=== PATIENT | female | born 1940 | race Caucasian/White ===

== ENCOUNTER → 2017-09-20 09:13 | Outpatient (CLI) | payer MEDICARE, SELFPAY ==
--- NOTE | 2017-09-20 09:16 | HPBI_ITS ---
MAMMOGRAPHY - BILATERAL SCREENING REASON FOR EXAM: Female, 76 years old. Routine annual screening examination. PERTINENT HISTORY: Non-contributory. TECHNIQUE: Digital bilateral breast chilango (3D mammographic acquisition) in the CC and MLO projections. 2-D mediolateral oblique (MLO) and craniocaudad (CC) views of both breasts were obtained. CAD: Full Field Digital Mammography with Computer Added Detection was performed. COMPARISON: Comparison is made with prior study dated September 19, 2016 and September 17, 2015. FINDINGS: Breast Composition: There are scattered areas of fibroglandular density. There are no dominant masses or suspicious calcifications. No other significant abnormalities are identified. There has been no significant change since the prior study. HPBI/SCREENING MAMM (CAD), BILAT IMPRESSION: Stable bilateral screening mammogram. Yearly follow-up mammogram recommended. (A) ASSESSMENT CATEGORY: BIRADS Category 1: Negative. A letter regarding these results will be sent to the patient by the facility within 30 days. Approximately 10% of breast cancers are not detected by mammography. A normal mammogram should not delay biopsy of a clinically suspicious abnormality. [id number] Electronically Signed: Constantino Sparks MD at 11:06 EST Tel [phone], Service support ,
== END ==
PROVIDERS: Family Provider Internal Medicine; PCP Internal Medicine; Visit Provider Internal Medicine
DX: Z12.31 Encounter for screening mammogram for malignant neoplasm of breast (principal)
CPT/HCPCS: 77063; 77067

== ENCOUNTER → 2017-09-27 09:55 | Outpatient (CLI) | payer MEDICARE, SELFPAY ==
--- NOTE | 2017-09-27 13:36 | PFT ---
INTRODUCTION: The patient is a 76-year-old female currently under the care of Dr. pa the presents for pulmonary function testing secondary to a diagnosis of hyperinflation. Respiratory therapy reports good patient effort and reports no other concerns. Bronchodilators were used during testing. INTERPRETATION: Forced expiration spirometry demonstrates no evidence of a large airways obstructive ventilatory defect. There was no significant response to aerosolized bronchodilators, based upon strict ATS criteria. Spirogram is of good quality and plateau gradually indicating slow emptying of the lungs. The respiratory flow volume loop reveals decreased expiratory flow rates primarily at high lung volumes which can be seen in small airways obstruction. Body plethysmography was performed and reveals lung volumes to be within normal limits. Diffusing capacity by single breath CO is within normal limits. IMPRESSION: These pulmonary function studies are essentially within normal limits. There are subtle findings of potential small airways obstruction. If there is clinical concern for underlying asthma, a methacholine challenge can be ordered.
== END ==
PROVIDERS: Family Provider Internal Medicine; PCP Internal Medicine; Visit Provider Internal Medicine
DX: R09.89 Other specified symptoms and signs involving the circulatory and respiratory systems (principal)
CPT/HCPCS: 94060; 94726; 94729

== ENCOUNTER 2017-12-31 13:47 | Observation (INO) | payer MEDICARE, SELFPAY ==
--- NOTE | 2017-12-31 15:05 | CT_ITS ---
STUDY: CT BRAIN WITHOUT CONTRAST REASON FOR EXAM: Female, 77 years old. Confusion RADIATION DOSAGE (If Supplied By Facility): CTDIvol = ( 60.81 ) mGy, DLP = ( 998.67 ) mGycm TECHNIQUE: Transaxial CT imaging of the brain was performed without administration of intravenous contrast material. Individualized dose optimization techniques were used for this CT. COMPARISON: None. FINDINGS: There is no acute bleed or infarct. There are normal white matter tracts. The ventricles are normal in configuration. There is no hydrocephalus. The visualized paranasal sinuses are clear. The mastoid air cells are well aerated. There is no skull fracture. CT/Brain/Head without Contrast IMPRESSION: No acute intracranial abnormality. Electronically Signed: Harshil Guerin, at 17:17 EDT Tel , Service support ,
--- NOTE | 2017-12-31 15:08 | RAD_ITS ---
STUDY: X-RAY CHEST REASON FOR EXAM: Female, 77 years old. Acute chest pain TECHNIQUE: Single AP portable view of the chest. COMPARISON: None. FINDINGS: EKG leads overlie the chest There are interstitial fibrotic changes of the lungs. There is no demonstrated pleural abnormality. Normal size heart. Normal mediastinum and johnna. Normal visualized pulmonary arteries. Normal visualized aortic arch and descending thoracic aorta. There are diffuse degenerative changes of the visualized thoracic spine. Normal visualized ribs, clavicles, and shoulders. There is no demonstrated abnormality of the visualized soft tissue structures of the upper abdomen. RAD/Chest 1 View (Portable) IMPRESSION: Degenerative changes, as described above. No demonstrated acute cardiopulmonary process. Electronically Signed: Renaldo Gotti MD at 14:37 EDT , Service support ,
--- NOTE | 2017-12-31 19:26 | DT_ITS ---
This patient was seen during an EMR downtime December 31, 2017 - January 07, 2018. This patient may have a combination of paper and electronic documentation or all paper documentation. All documentation is viewable within the e-chart portion of [facility] for each patient visit.
--- NOTE | 2018-01-01 11:52 | ECHOD_ITS ---
Reason For Study: CVA Procedure This was a 2D Doppler, Color Flow transthoracic echocardiogram. Exam performed portable in patient room. Left Ventricle Normal LV size. Left ventricular systolic function is normal. The estimated ejection fraction is 60 %. Normal diastology for age. No regional wall motion abnormalities noted. Right Ventricle Normal RV size. Normal systolic function. Atria Normal left atrium. Normal right atrium. No doppler evidence for ASD. Mitral Valve There is no mitral annular calcification. Mild diffuse mitral valve thickening. Mild mitral valve prolapse, posterior leaflet. Mild (1+) mitral valve insufficiency. Tricuspid Valve Normal tricuspid valve. Trivial tricuspid valve insufficiency. Right ventricular systolic pressure estimated to be 30 mmHg. Aortic Valve Trisinus/trileaflet aortic valve. Moderate focal aortic valve calcification. Pulmonic Valve The pulmonic valve is not well visualized. Great Vessels Normal sized aortic root. Pericardium/Pleural No pericardial effusion. Medication Performed a rapid injection of agitated mix of 9 cc saline and 1cc air to assess for atrial septal defect. MMode/2D Measurements & Calculations LVIDd: 3.8 cm IVSd: 1.0 cm Ao root diam: 3.0 cm LVIDs: 2.5 cm LVPWd: 1.0 cm LA dimension: 2.9 cm RVDd: 3.1 cm FS: 34.2 % LAV(MOD-bp): 20.1 ml LA A4 area: 10.8 cm2 RA A4 area: 10.3 cm2 LAV(MOD-bp) Indexed: 11.8 ml/m2 LAV(MOD-sp2): 15.6 ml LAV(MOD-sp4): 23.0 ml Doppler Measurements & Calculations MV E max kin: 54.2 cm/sec Lat Peak E' Kin: 8.4 cm/sec Med Peak E' Kin: 7.3 cm/sec MV A max kin: 65.7 cm/sec E/E' lat: 6.5 E/E' med: 7.4 MV E/A: 0.82 Ao V2 max: 111.5 cm/sec LV V1 max: 73.5 cm/sec PA V2 max: 62.9 cm/sec Ao max P.0 mmHg LV V1 max P.2 mmHg TR max kin: 259.0 cm/sec TR max P.0 mmHg Interpretation Summary Left ventricular systolic function is normal. The estimated ejection fraction is 60 %. Mild mitral valve prolapse, posterior leaflet Mild diffuse mitral valve thickening. Mild (1+) mitral valve insufficiency. Trivial tricuspid valve insufficiency. Moderate focal aortic valve calcification. Right ventricular systolic pressure estimated to be 30 mmHg. Normal diastology for age. Comment / Disclaimer: The offiial transthoracic echocardiogram report was delayed secondary to [facility] Information Systems technical issues. A hand writtern preliminary report was previously made available for review. Ordering Physician: Nikita Suarez Referring Physician: Ben Paulino Performed By: Thalia Vargas RDCS, RVT
--- NOTE | 2018-01-01 12:30 | MRI_ITS ---
STUDY: MRA NECK WITHOUT CONTRAST REASON FOR EXAM: Female, 77 years old. Confusion. TECHNIQUE: Source images were obtained, MIPs were performed. The study was performed unenhanced. COMPARISON: None. FINDINGS: RIGHT CAROTID ARTERIES: Normal right common carotid artery (CCA). Normal right common carotid bulb. Normal origin of the right internal carotid (ICA) artery without a hemodynamically significant stenosis. Normal visualized cervical portion of the right internal carotid artery. Normal origin of the right external carotid artery (ECA). LEFT CAROTID ARTERIES: Normal left common carotid artery (CCA). Normal left common carotid bulb. Normal origin of the left internal carotid (ICA) artery without a hemodynamically significant stenosis. Normal visualized cervical portion of the left internal carotid artery. Normal origin of the left external carotid artery (ECA). VERTEBRAL ARTERIES: Normal antegrade flow within the bilateral vertebral artery without a hemodynamically significant stenosis. The vertebral arteries are codominant. MRI/MRA Neck without Contrast IMPRESSION: Normal MRA of the bilateral cervical carotid and vertebral arteries. Electronically Signed: Mustapha Wiseman MD at 11:25 EDT , Service support ,
--- NOTE | 2018-01-01 12:30 | MRI_ITS ---
STUDY: MRI BRAIN WITHOUT CONTRAST REASON FOR EXAM: Female, 77 years old. Confusion. TECHNIQUE: Standardized multiplanar fat and water weighted pulse sequences were obtained. COMPARISON: CT head without contrast 12/31/2017. FINDINGS: No restricted diffusion to suspect acute or subacute ischemic infarct. No focal signal abnormalities throughout the brain parenchyma. The tolliver matter, white matter, ventricles and cisterns are normal. Normal size of the ventricles and extra-axial spaces for the patient's age. Normal white matter tracts of the supratentorial brain. Normal bilateral basal ganglia. Normal thalami. There is no extra-axial fluid accumulation. Normal flow voids within the major intracranial circulation suggesting patency by spin echo criteria. Normal sella turcica, pituitary gland, infundibular stalk, optic chiasm and hypothalamus. Normal tectal plate and pineal gland. Normal midbrain, lorenzo and medulla. Normal cerebellum. Normal basal cisterns. Normal bilateral temporal bones. Normal bilateral internal auditory canals. No demonstrated orbital abnormality, within the constraints of a routine brain study. Normal visualized paranasal sinuses. Normal calvarium and skull base. Normal visualized soft tissue structures. Normal visualized upper cervical spine. MRI/Brain without Contrast IMPRESSION: Normal unenhanced MRI of the brain. Electronically Signed: Mustapha Wiseman MD at 12:01 EDT , Service support ,
--- NOTE | 2018-01-01 12:30 | MRI_ITS ---
STUDY: MRA OF THE HEAD WITHOUT CONTRAST REASON FOR EXAM: Female, 77 years old. Confusion. TECHNIQUE: 3-D qpyp-ex-lldoen (TOF) imaging was performed with MIPs. The study was performed unenhanced. COMPARISON: None. FINDINGS: Normal bilateral petrous carotid arteries. Normal right cavernous carotid artery with a normal supraclinoid bifurcation. Normal left cavernous carotid artery with a normal supraclinoid bifurcation. Normal right A1 segment of the anterior cerebral artery. Normal left A1 segment of the anterior cerebral artery. Normal intact anterior communicating artery (ACOM). Normal bilateral A2 segments of the anterior cerebral arteries. Normal right M1 and M2 segments of the middle cerebral arteries, with a normal M1 bifurcation. Normal left M1 and M2 segments of the middle cerebral arteries, with a normal M1 bifurcation. origin of the right [employer]ION TE[employer]ER off the right internal carotid artery rather than a widely patent right posterior communicating artery (PCOM). Normal left posterior communicating artery (PCOM). Normal bilateral vertebral arteries. Normal basilar artery with a normal basilar bifurcation. The visualized bilateral superior cerebellar (SCA) arteries are normal. Absent right P1 segment. Widely patent left P1, bilateral P2 and visualized P3 segments of the posterior cerebral arteries. There is no demonstrated aneurysm of the [place]. There is no major vessel occlusion or hemodynamically significant stenosis. MRI/MRA Head ONLY without Contrast IMPRESSION: Normal MRA of the head Electronically Signed: Mustapha Wiseman MD at 11:36 EDT , Service support ,
[2018-01-03 10:57] LABS: BUN 18 mg/dL (7-18); BUN/Creat Ratio 17.1 RATIO (10-20); Calcium,Total 8.8 mg/dL (8.5-10.1); Creatinine, Serum 1.05 mg/dL (0.55-1.02); EST Glomerular Filtration Rate 54 mL/min (>60); Est Glom Filt Rate - Afr Amer 65 mL/min (>60); Glucose 118 mg/dL (74-106); Potassium 3.8 mmol/L (3.5-5.1); Sodium Level 143 mmol/L (136-145)
[2018-01-03 10:58] LABS: Anion Gap 6 (5-15); Chloride 111 mmol/L (98-107)
[2018-01-03 18:02] LABS: Bacteria 0 SEEN /hpf (None Seen); Mucous, Urine 0 SEEN /hpf (<or=2+); Red Blood Cells-Urine 0 SEEN /hpf (0-5); White Blood Cells 0 SEEN /hpf (0-5)
[2018-01-03 18:19] LABS: Color, Urine Yellow (Yellow); Glucose, Dipstick NEGATIVE (Normal); Ketone-Dipstick Negative (Negative); Leukocyte Esterase-Dipstick Negative /ul (Negative); Nitrite-Dipstick Negative (Negative); Occult Blood-Urine 10 /ul (Negative); Protein-Dipstick Negative (Negative); Squamous Epithelial Cells - UA 0-5 SEEN /hpf (5-10); Urine Bilirubin Dipstick Negative (Negative); Urine Clarity Clear (Clear); Urine Urobilinogen Normal (Normal)
[2018-01-04 10:22] LABS: Absolute Lymphocyte Count 1.35 X10^3/ul (0.83-4.51); Absolute Neutrophil Count 3.7 X10^3/uL (2.0-7.7); Basophil# 0.02 X10^3/uL; Basophil% 0.4 % (0-1); Eosinophil# 0.09 X10^3/uL; Eosinophils% 1.7 % (0-5); Hematocrit 46.5 % (37-47); Hemoglobin 14.9 g/dl (12.0-15.0); Lymphocyte # 1.35 X10^3/ul (4.0); Lymphocyte % 24.8 % (19-41); Mean Corpuscular Hgb 29.9 pg (27.0-32.0); Mean Corpuscular Volume 93.4 fL (81-99); Mean Platelet Vol. 10.6 fl (6.2-12.0); Monocyte# 0.31 X10^3/uL; Monocyte% 5.7 % (0-10); Neutrophil # 3.68 X10^3/uL (2.7-7.7); Neutrophil % 67.4 % (47-70); POSITIVE COUNT NO; POSITIVE DIFFERENTIAL NO; POSITIVE MORPHOLOGY NO; Platelet Count 172 K/mm3 (150-450); RBC Distribution Width CV 12.8 % (11.6-14.6); RBC Distribution Width SD 42.9 fl (35.1-43.9); Red Blood Count 4.98 M/mm3 (4.2-5.4); White Blood Count 5.5 K/mm3 (4.4-11.0)
[2018-01-04 11:51] LABS: Hematocrit 45.2 % (37-47); Hemoglobin 14.3 g/dl (12.0-15.0); Mean Corp Hgb Conc 31.6 g/gl (32-36); Mean Corpuscular Hgb 29.4 pg (27.0-32.0); Mean Corpuscular Volume 92.8 fL (81-99); Red Blood Count 4.87 M/mm3 (4.2-5.4); White Blood Count 4.1 K/mm3 (4.4-11.0)
[2018-01-04 11:52] LABS: Mean Platelet Vol. 9.9 fl (6.2-12.0); Platelet Count 176 K/mm3 (150-450); RBC Distribution Width CV 12.5 % (11.6-14.6); RBC Distribution Width SD 41.9 fl (35.1-43.9); Scan Indicated on CBC? Y/N NO
[2018-01-05 11:18] LABS: BUN 14 mg/dL (7-18); BUN/Creat Ratio 19.2 RATIO (10-20); Calcium,Total 8.4 mg/dL (8.5-10.1); Cholesterol 176 mg/dL (200); Creatinine, Serum 0.73 mg/dL (0.55-1.02); EST Glomerular Filtration Rate 82 mL/min (>60); Est Glom Filt Rate - Afr Amer 99 mL/min (>60); Glucose 80 mg/dL (74-106); Triglycerides 60 mg/dL; Very Low Density Lipoprotein 12 mg/dL (5-40)
[2018-01-05 11:19] LABS: Anion Gap 6 (5-15); Chloride 112 mmol/L (98-107); High Density Lipoprotein 51 mg/dL; Potassium 3.6 mmol/L (3.5-5.1); Sodium Level 143 mmol/L (136-145)
--- NOTE | 2018-01-08 09:44 | PCM.DC.SUM ---
Discharge Date and Diagnosis Date of Admission: 12/31/17 Date of Discharge: 01/01/18 - Primary Discharge Diagnosis #1 transient global amnesia #2 chronic migraine cephalgia #3 hyperlipidemia #4 GERD Hospital Course and Treatment Operations: None Procedures: None Summary of Care Provided: The patient is a 77 year old F who was seen in the emergency room [facility] with a chief complaint of confusion which started the morning of 12/31/17, patient's family noted that when I talk with her on the phone that she did not seem right. Evaluation in the emergency room included a CT of the brain which did not show any abnormalities, patient's labs were unremarkable. Patient appeared alert but was mildly confused. Patient was placed in observation status on PCU, she was seen in consultation by neurology and had additional imaging studies which were unremarkable for any acute process. It was felt that the patient had transient global amnesia. On 01/01/18, patient was seen and examined felt to be in stable condition for discharge home Home Medications: Medications to take at Discharge Aspirin [Aspirin, Baby] 81 mg PO DAILY@0800 01/17/16 Calcium Citrate/Vitamin D3 [Calcium Citrate +Vit D3 Tablet] 1 each PO 01/17/16 Cholecalciferol (Vitamin D3) [Vitamin D] 10,000 unit PO 01/17/16 Estrogens, Conjugated [Premarin] 1 dose VAGINAL DAILY 01/17/16 Famotidine [Pepcid] 20 mg PO DAILY 01/17/16 Hyoscyamine Sulfate 0.125 mg SL 01/17/16 L.acidoph,Paracasei, B.lactis [Probiotic] 1 each PO 01/17/16 [place]-3 Fatty Acids/Fish Oil [[place] 3 Fish Oil Softgel] 1 each PO 01/17/16 Pravastatin [Pravachol] 10 mg PO QHS 01/17/16 Sumatriptan Succinate 25 mg PO 01/17/16 Topiramate [Topamax] 25 mg DAILY 01/17/16 Vitamin E 400 unit PO 01/17/16 Primary Care Physician: Apanra William DO [Primary Care Provider] - Disposition: Home Minutes spent on discharge:: 25 Patient Condition:: Stable Medical Necessity - Tobacco Use Smoking Status: Never smoker Meaningful Use Info Meaningful Use Diagnoses (Choose all that apply): None applicable Code Visit OBSV E&M: 23315 Observation care discharge
--- NOTE | 2018-01-08 09:47 | DS.PCM_ITS ---
Discharge Date and Diagnosis Date of Admission: 12/31/17 Date of Discharge: 01/01/18 - Primary Discharge Diagnosis #1 transient global amnesia #2 chronic migraine cephalgia #3 hyperlipidemia #4 GERD Hospital Course and Treatment Operations: None Procedures: None Summary of Care Provided: The patient is a 77 year old F who was seen in the emergency room [facility] with a chief complaint of confusion which started the morning of 12/31/17, patient's family noted that when I talk with her on the phone that she did not seem right. Evaluation in the emergency room included a CT of the brain which did not show any abnormalities, patient's labs were unremarkable. Patient appeared alert but was mildly confused. Patient was placed in observation status on PCU, she was seen in consultation by neurology and had additional imaging studies which were unremarkable for any acute process. It was felt that the patient had transient global amnesia. On 01/01/18 , patient was seen and examined felt to be in stable condition for discharge home Home Medications: Medications to take at Discharge Aspirin [Aspirin, Baby] 81 mg PO DAILY@0800 01/17/16 Calcium Citrate/Vitamin D3 [Calcium Citrate +Vit D3 Tablet] 1 each PO 01/17/16 Cholecalciferol (Vitamin D3) [Vitamin D] 10,000 unit PO 01/17/16 Estrogens, Conjugated [Premarin] 1 dose VAGINAL DAILY 01/17/16 Famotidine [Pepcid] 20 mg PO DAILY 01/17/16 Hyoscyamine Sulfate 0.125 mg SL 01/17/16 L.acidoph,Paracasei, B.lactis [Probiotic] 1 each PO 01/17/16 [place]-3 Fatty Acids/Fish Oil [[place] 3 Fish Oil Softgel] 1 each PO 01/17/16 Pravastatin [Pravachol] 10 mg PO QHS 01/17/16 Sumatriptan Succinate 25 mg PO 01/17/16 Topiramate [Topamax] 25 mg DAILY 01/17/16 Vitamin E 400 unit PO 01/17/16 Primary Care Physician: Aparna William DO [Primary Care Provider] - Disposition: Home Minutes spent on discharge:: 25 Patient Condition:: Stable Medical Necessity - Tobacco Use Smoking Status: Never smoker Meaningful Use Info Meaningful Use Diagnoses (Choose all that apply): None applicable Code Visit OBSV E&M: 59592 Observation care discharge
== END 2018-01-01 18:25 | disposition home or self-care (01) ==
LOC: ED 01-02 14:39 → PCU 01-03 11:25
PROVIDERS: Family Medicine; Admitting Provider Internal Medicine; Emergency Provider Emergency Medicine; Family Provider Internal Medicine; PCP Internal Medicine; Visit Provider Internal Medicine
DX: G45.4 Transient global amnesia (principal); G43.909 Migraine, unspecified, not intractable, without status migrainosus; K21.9 Gastro-esophageal reflux disease without esophagitis; E78.5 Hyperlipidemia, unspecified; I08.1 Rheumatic disorders of both mitral and tricuspid valves
CPT/HCPCS: 36415; 70450; 70544; 70547; 70551; 71045; 80048; 80061; 81001; 84484; 85025; 85027; 93005; 93306; 96372; 99218; 99285; J7050; A4216; G0378

== ENCOUNTER → 2018-01-18 09:22 | Outpatient (CLI) | payer MEDICARE, SELFPAY ==
--- NOTE | 2018-01-26 10:23 | EEG ---
- Electroencephalogram Date of Service: 01/18/18 History EEG is being done in this 77 yr F to rule out seizures EEG Description: This is an 18 channel EEG with 10-20 lead placement system. Bipolar montages, Referential and Circumferential montages were reviewed. Photic stimulation and Hyperventilation were performed. The posterior dominant background rhythm is 9 HZ synchronous, symmetric, reacting to eye opening and closing. Photo stimulation elicited normal driving response but no abnormal photoparoxysmal response, Hyperventilation did not elicit any abnormal photoparoxysmal response. Sleep was identified. There was no epileptiform discharges or electrographic seizures noted during this recording. EEG Interpretation This is a normal awake and asleep EEG. There is no epileptiform discharges or electrographic seizures noted during the record.
== END ==
PROVIDERS: Family Provider Internal Medicine; PCP Internal Medicine; Visit Provider Internal Medicine
DX: R41.3 Other amnesia (principal)
CPT/HCPCS: 95819

== ENCOUNTER → 2018-05-06 08:39 | Outpatient (CLI) | payer MEDICARE, SELFPAY ==
--- NOTE | 2018-05-06 08:43 | RDU_ITS ---
Reason For Study: HYPERTENSION Right Renal Artery Left Renal Artery Right renal artery ostium Left renal artery ostium 71.2/19.1 108.0/26.4 RSV/EDV. PSV/EDV. Right renal artery proximal Left renal artery proximal PSV/EDV 121.0/32.6 PSV/EDV. 70.6/20.8 . Right renal artery mid 104.0/21.6 Left renal artery mid 66.5/16.2 PSV/EDV. PSV/EDV . Right renal artery distal Left renal artery distal 62.1/17.8 115.0/32.8 PSV/EDV. PSV/EDV. Right RAR 1.3. Left RAR .69. Right Renal Parenchyma Left Renal Parenchyma Upper Pole Medula 38.5/10.4 Left upper pole medulla 20.2/6.1 PSV/EDV. PSV/EDV . Right upper pole medulla EDR .27 . Left upper pole medulla EDR .30 . Right upper pole medulla R.I. .73 . Left upper pole medulla R.I. .70 . Upper [place] Cortx 28.4/9.2 PSV/EDV. UP Cortex 15.9/4.8 PSV/EDV. Right upper pole cortex EDR .32 . Left upper pole cortex EDR .30 . Right upper pole cortex R.I. .68 . Left upper pole cortex R.I. .70 . Right lower Pole medulla 24.4/7.3 Left lower Pole medulla 29.3/9.1 PSV/EDV . PSV/EDV . Right lower pole medulla EDR .30 . Left lower pole medulla EDR .31 . Right lower pole medulla R.I. .70 . Left lower pole medulla R.I. .69 . Lower Pole Cortex 15.7/4.7 PSV/EDV. Lower Pole Cortx 29.6/9.1 PSV/EDV. Right lower pole cortex EDR .30 . Left lower pole cortex EDR .31 . Right lower pole cortex R.I. .70 . Left lower pole cortex R.I. .69 . Right Renal Hilar Left Renal Hilar Right Hilar avg 54.3/11.9 PSV/EDV. LT Hilar avg 42.5/10.7 PSV/EDV . Right hilar acceleration time 51 Left hilar acceleration time 44 m/sec. m/sec. Right Renal Dimensions Left Renal Dimensions Right kidney size 10.3 cm . Left kidney size 10.0 cm . Right cortical dimension 1.5 cm . Left cortical dimension 1.6 cm . Aorta Proximal abdominal aorta 1.5 X 1.5 cm . Distal abdominal aorta 1.3 X 1.3 cm . Proximal abdominal aorta peak systolic velocity is 90.3 cm/sec . Distal abdominal aorta peak systolic velocity is 89.4 cm/sec . Interpretation Summary Dimensions of the intra-abdominal aorta appear normal, without evidence of aneurysmal dilatation. Renal artery velocities are bilaterally normal. Acceleration times are normal bilaterally. Renal- aortic ratios are also bilaterally normal. There is no evidence of hemodynamically significant renal artery stenosis on either side. The right cortical dimension is normal. The left cortical dimension is increased. Kidneys appear normal in size bilaterally. Ordering Physician: Aparna William Referring Physician: Aparna William Performed By: Gwen Childers RVT
== END ==
PROVIDERS: Family Provider Internal Medicine; PCP Internal Medicine; Referring Provider Internal Medicine; Visit Provider Internal Medicine
DX: J84.10 Pulmonary fibrosis, unspecified (principal); I10 Essential (primary) hypertension
CPT/HCPCS: 93975

== ENCOUNTER → 2018-05-24 09:15 | Outpatient (CLI) | payer MEDICARE, SELFPAY ==
[2018-05-30 12:07] LABS: Dopamine, UR 40 ug/L (Undefined); Epinephrine, 24Ur 4 ug/24 hr (0-20); Epinephrine, Ur 2 ug/L (Undefined); Norepinephrine, 24Ur 28 ug/24 hr (0-135); Norepinephrine, Ur 14 ug/L (Undefined); VMA, UR 1.2 mg/L (Undefined)
[2018-05-31 12:43] LABS: Dopamine, 24Ur 80 ug/24 hr (0-510); VMA, 24UR 2.4 mg/24 hr (0.0-7.5)
== END ==
PROVIDERS: Family Provider Internal Medicine; PCP Internal Medicine; Referring Provider Internal Medicine Cardiovascular Disease; Visit Provider Internal Medicine Cardiovascular Disease
DX: I10 Essential (primary) hypertension (principal)
CPT/HCPCS: 81050; 82384; 84585

== ENCOUNTER → 2018-05-30 06:26 | Outpatient (CLI) | payer MEDICARE, SELFPAY ==
--- NOTE | 2018-05-30 10:11 | STRESSREP_ITS ---
Stress Test Report Date: 05/30/2018 Procedure: Exercise tolerance test/imaging study Indications: Chest pain Consent: Per the patient Procedure: The patient exercised on a Ayo protocol for 6 minutes and 30 seconds completing Stage II and 30 seconds of Stage III achieving a peak heart rate of 155 bpm (108 % predicted maximal heart rate) with a peak blood pressure 198/80 mmHg and a peak MET capacity of 7 METs. The baseline ECG demonstrated normal sinus rhythm. The peak exercise ECG demonstrated no obvious ECG changes. There were occasional PVCs during exercise and recovery. The functional capacity was considered average. There was vague chest discomfort at peak exercise with spontaneous resolution in recovery. The examination was discontinued secondary to dyspnea. Impression: 1. Technically adequate (percent predicted maximal heart rate greater than 85%) exercise tolerance test 2. Peak exercise ECG with no obvious ECG changes 3. There were occasional PVCs during exercise and recovery 4. Nuclear images pending Myocardial perfusion imaging study: Technique: The patient was injected with 11.4 mCi of technetium 99m Cardiolite and subsequently rest SPECT Cardiolite nuclear imaging was obtained in the horizontal long, vertical long, and short axis views. The patient exercised on a Ayo protocol for 6 minutes and 30 seconds completing Stage II and 30 seconds of Stage III achieving a peak heart rate of 155 bpm (108 % predicted maximal heart rate) with a peak blood pressure 198/80 mmHg and a peak MET capacity of 7 METs. The patient was injected with 31.9 mCi of technetium 99m Cardiolite and subsequently stress SPECT Cardiolite nuclear imaging was obtained in the horizontal long, vertical long, and short axis views. A gated Cardiolite study at peak stress was obtained. Interpretation: Rest and stress SPECT Cardiolite nuclear imaging status post realignment, normalization, and attenuation correction, demonstrates the appearance of relative uniform tracer uptake and myocardial perfusion appearing within normal limits. There is end systolic thickening and brighteningu. The gated Cardiolite study demonstrates myocardial thickening and inward wall motion. The reported LVEF is 76 %. Impression: 1. Rest and stress SPECT Cardiolite nuclear imaging demonstrate relative uniform tracer uptake and myocardial perfusion appearing within normal limits. 2. The gated Cardiolite study reports an LVEF of 76 %. This note was generated with [email or web address] software. It may contain incorrect words, spelling, and punctuation that were not noted in checking the note before signing.
== END ==
PROVIDERS: Family Provider Internal Medicine; PCP Internal Medicine; Referring Provider Internal Medicine Cardiovascular Disease; Visit Provider Internal Medicine Cardiovascular Disease
DX: R07.9 Chest pain, unspecified (principal); I10 Essential (primary) hypertension; E78.5 Hyperlipidemia, unspecified
CPT/HCPCS: 78452; 93017; A9500; A4216

== ENCOUNTER → 2018-06-25 13:05 | Outpatient (CLI) | payer MEDICARE, SELFPAY ==
--- NOTE | 2018-06-25 13:10 | CT_ITS ---
STUDY: CT CHEST WITHOUT CONTRAST REASON FOR EXAM: Female, 77 years old. Pulmonary fibrosis RADIATION DOSAGE (If Supplied By Facility): CTDIvol = ( 8.24 ) mGy, DLP = ( 276.69 ) mGycm TECHNIQUE: Transaxial imaging was performed without the administration of intravenous contrast material. Individualized dose optimization techniques were used for this CT. COMPARISON: None. FINDINGS: 6 mm left upper lobe nodule on image 66 of series 3. 5 mm left upper lobe nodule on image 68. Mild peripheral pulmonary fibrosis in the upper lobes. Mild terminal alveolar nodularity in the right upper lobe could be related to bronchiolitis. There is no demonstrated pleural abnormality. Normal heart and pericardium. Normal mediastinum. Normal hilar regions. Normal unenhanced pulmonary arteries. Normal aorta arch and descending thoracic aorta. Tracheobronchial calcifications. Normal osseous structures. Indeterminate 12 mm low-density lesion in the central liver. Incompletely imaged left renal cyst. Multiple small nonobstructing left renal calculi. CT/Chest without Contrast IMPRESSION: Mild peripheral pulmonary fibrosis in the upper lobes. Mild terminal alveolar nodularity in the right upper lobe could be related to bronchiolitis. 6 and 5 mm left upper lobe nodules. Based on the 2017 Fleischner Society Guidelines for Management of Incidentally Detected Pulmonary Nodules, for a single solid lung nodule 6-8mm in size: * If patient is considered low risk for developing lung cancer, follow-up CT at 6-12 months is recommended, then consider CT at 18-24 months. * If patient is considered high risk, follow-up CT at 6-12 months is recommended, then again at 18-24 months. Electronically Signed: Prince Calloway MD at 23:46 EST Tel , Service support ,
--- OUTSIDE RECORDS SUMMARY | 2018-08-07 06:46 | XMS RPT_ITS | Continuity of Care Document ---
:1940 Author Organization [facility] Address [address] [place] [address] Phone Care Team Providers Name Role Phone Aparna William DO Unavailable Brendan Koch MD Unavailable Hearing Services-- Ryan Lynch Unavailable Dr. Tone Childs Unavailable Kia Mejia Unavailable Unavailable Rabia Law Unavailable Unavailable Unavailable Unavailable Problems Name Dates Details Amnesia (R41.3, 780.93) Comments: 1 hour spent with patient and daughter today and call to neuro to discuss and reviewed hsosptial notes and his office notes Status: Active Anxiety (F41.9, 300.00) Status: Active Benign essential hypertension (I10, 401.1) Comments: chronic stable-continue present regimen Status: Active Bilateral hearing loss (H91.93, 389.9) Status: Active Blood in stool (K92.1, 578.1) Status: Active Blood pressure elevated without history of HTN (R03.0, 796.2) Comments: dont think she should push mow at this point- she can do low level activity but nothing strenous- I would have her see August- and the issue is abnormal blood pressure response to physical activity c ausing tia x2 - rule out cardiac disease- Status: Active BMI between 19-24,adult (V85.1) Status: Active Bursitis of right hip (M70.71, 726.5) Status: Active 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, 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) Status: Active Cervical radiculopathy (M54.12, 723.4) Status: Active Chest pain, atypical (R07.89, 786.59) Comments: maybe asthma will try inhaler -- has had stress and echo- seems to worsen in the cold Status: Active Clavical Pain (719.41) Status: Active Diarrhea (R19.7, 787.91) Status: Active Diastolic dysfunction (I51.9, 429.9) Status: Active elevated albumin Status: Active Elevated hemoglobin A1c (R73.09, 790.29) Comments: good control Status: Active Elevated LFTs (R94.5, 790.6) Status: Active Encounter for hepatitis C virus screening test for high risk patient (Z11.59, V73.89) Status: Active Encounter for screening for malignant neoplasm of cervix (Z12.4, V76.2) Status: Active Encounter for screening mammogram for breast cancer (Renamed from Encounter for screening mammogram for malignant neoplasm of breast) (Z12.31, V76.12) Status: Active Encounter for screening mammogram for breast cancer (Renamed from Encounter for screening mammogram for malignant neoplasm of breast) (Z12.31, V76.12) Status: Active Family history of diabetes mellitus (Z83.3, V18.0) Status: Active Fatty liver (K76.0, 571.8) Comments: continued risk factor modification Status: Active Gastroesophageal reflux disease without esophagitis (K21.9, 530.81) Comments: controlled Status: Active Hypercholesteremia (E78.00, 272.0) Comments: improved in general she not tolerate higher dose statin Status: Active Influenza vaccination declined (Renamed from Refused influenza vaccine) (Z28.21, V64.06) Status: Active 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, 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) Comments: cxr 01/14- will readdress at next appt Status: Active Leukopenia, unspecified type (D72.819, 288.50) Status: Active Low back pain potentially associated with radiculopathy (M54.5, 724.2) Comments: better Status: Active [facility] WELLNESS EXAM Status: Active [facility] Physical Status: Active Migraine (G43.909, 346.90) Comments: controlled Status: Active Need for prophylactic vaccination and inoculation against influenza (Z23, V04.81) Status: Active Non-smoker (Z78.9, V49.89) Status: Active Osteopenia (M85.80, 733.90) Status: Active Polycythemia, 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, 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) Status: Active Postmenopausal (Renamed from Postmenopausal status) (Z78.0, V49.81) Status: Active Precordial pain (R07.2, 786.51) Comments: wonder if she experiencing the pvc - ch3eck holter Status: Active Prediabetes (R73.03, 790.29) Status: Active Pregnancies () Comments: 5- 1 adopted child Status: Active Pre-operative examination (Z01.818, V72.84) Comments: Cataract scheduled 01-09 Status: Active PVC, OTHER PREMATURE BEATS (427.69) Status: Active SHINGLES (053.9) Status: Active Stress reaction (F43.0, 308.9) Status: Active Thickened small bowel (569.89) Status: Active Unspecified menopausal and perimenopausal disorder (N95.9, 627.9) Status: Active Vitamin D deficiency, unspecified (E55.9, 268.9) Comments: chronic stable-continue present regimen Status: Active Medications Name Dates Details Aspirin EC 325 MG Oral Tablet Delayed Release 1 (one) Tablet qd for 0 days Quantity: 30 {Tablet} Refills: 0 Ordered:24-Apr-2018 Fast Aparna GARCIA DO, Debra A Start : 24-Apr-2018 Active Comments:take with food Atorvastatin Calcium 10 MG Oral Tablet 1 (one) Tablet qd for 0 days Quantity: 30 {Tablet} Refills: 3 Ordered:06-Mar-2018 Fast Aparna GARCIA DO, Debra A Start : 06-Mar-2018 Active CALCIUM CITRATE + (Oral Tablet) 1 Tablet qd for 30 days Quantity: 30 {Tablet} Refills: 0 Ordered:23-Oct-2016 Caryn Camacho Start : 22-Feb-2011 Active CloNIDine HCl 0.1 MG Oral Tablet 1 (one) Tablet qd prn for 0 days Quantity: 30 {Tablet} Refills: 0 Ordered:24-Apr-2018 Aparna William DO AFast DO, Aparna A Start : 24-Apr-2018 Active Famotidine 20 MG Oral Tablet 1 (one) Tablet daily for 0 days Quantity: 30 {Tablet} Refills: 6 Ordered:08-Mar-2018 David William DOa AFast DO, Aparna A Start : 08-Mar-2018 Active FISH OIL, 300MG (Oral Capsule) 1 Capsule Daily for 0 days Refills: 0 Ordered:16-Oct-2006 Caryn Camacho Start : 16-Oct-2006 Active HYOSCYAMINE SULFATE, 0.125MG (Oral Tablet) 1 tab prn (0.125 MG) Active Imitrex 25 MG Oral Tablet 1 Tablet QD PRN for 0 days Quantity: 10 {Tablet} Refills: 3 Ordered:08-Mar-2018 Aparna William DOast DO, Aparna A Start : 08-Mar-2018 Active LORazepam 0.5 MG Oral Tablet 1 (one) Tablet Tablet qd prn anxiety for 30 days Refills: 2 Ordered:11-Jan-2018 Kia Mejia Start : 11-Jan-2018 Active Comments:five - dont drive while taking this medicine Premarin 0.625 MG/GM Vaginal Cream uad Cream prn for 0 days Quantity: 42 {Gram} Refills: 3 Ordered:25-Oct-2017 Aparna William DO, DO, Aparna A Start : 25-Oct-2017 Active Symbicort 80-4.5 MCG/ACT Inhalation Aerosol 2 (two) Puff Puff puffs q am for 0 days Quantity: 3 {Inhalation} Refills: 0 Ordered:03-Dec-2017 Kia Mejia Start : 05-Oct-2017 Active VITAMIN D, 1000UNIT (Oral Tablet) 3 (three) Tablet qd for 0 days Quantity: 90 {Tablet} Refills: 0 Ordered:10-Jun-2012 Caryn Camacho Start : 06-Feb-2012 Active VITAMIN E, 400UNIT (Oral Capsule) 2 (two) Capsule qd for 30 days Quantity: 30 {Capsule} Refills: 0 Ordered:17-Aug-2015 David William DOa AFast DO, Aparan A Start : 17-Aug-2015 Active Topamax 25 MG Oral Tablet 1 (one) Tablet daily for 0 days Quantity: 30 {Tablet} Refills: 3 Ordered:08-Mar-2018 Kia Mejia Start : 03-Dec-2017 End : 08-Mar-2018 Inactive CRESTOR, 10MG (Oral Tablet) 1 (one) Tablet couple times week for 0 days Quantity: 30 {Tablet} Refills: 3 Ordered:10-Aug-2014 Fast DODavida AFast DO, Aparna A Start : 10-Aug-2014 End : 10-Aug-2014 Discontinued ERGOCALCIFEROL, 42214UOGD (Oral Capsule) 1 (one) Capsule q week for 0 days Quantity: 4 {Capsule} Refills: 0 Ordered:06-Feb-2012 Fast Davida AFast DO, Aparna A Start : 06-Feb-2012 End : 06-Feb-2012 Discontinued Comments:Pt needs to check vitamin d level before more refills NEXIUM, 40MG (Oral Capsule Delayed Release) [address] Daily for 0 days Quantity: 30 {Capsule_DR} Refills: 3 Ordered:07-Nov-2006 Caryn Camacho Start : 07-Nov-2006 End : 04-Jan-2007 Discontinued NIACIN FLUSH FREE, 500MG (Oral Capsule) 1 (one) Capsule qd for 0 days Quantity: 30 {Capsule} Refills: 3 Ordered:03-Dec-2013 Fast Davida AFast DO, Aparna A Start : 03-Dec-2013 End : 03-Dec-2013 Discontinued Pravastatin Sodium 10 MG Oral Tablet 1 (one) Tablet qd for 0 days Quantity: 30 {Tablet} Refills: 3 Ordered:18-Apr-2016 Fast DO Apanra AFast DO, Aparna A Start : 18-Apr-2016 End : 18-Apr-2016 Discontinued PRAVASTATIN SODIUM, 20MG (Oral Tablet) 1 (one) Tablet qd for 0 days Quantity: 30 {Tablet} Refills: 4 Ordered:13-Apr-2015 Fast DO Aparna AFast DO, Aparna A Start : 13-Apr-2015 End : 13-Apr-2015 Discontinued PRILOSEC OTC, 20MG (Oral Tablet Delayed Release) 1 (one) Tablet DR qd for 0 days Quantity: 30 {Tablet_DR} Refills: 0 Ordered:03-Feb-2014 Caryn Camacho Start : 10-Oct-2011 End : 03-Feb-2014 Discontinued SIMVASTATIN, 20MG (Oral Tablet) 1 Tablet daily for 0 days Quantity: 30 {Tablet} Refills: 3 Ordered:10-Oct-2011 Caryn Camacho Start : 10-Oct-2011 End : 10-Oct-2011 Discontinued VALTREX, 1GM (Oral Tablet) 1 (one) Tablet TID for 0 days Quantity: 21 {Tablet} Refills: 0 Ordered:27-Feb-2008 Caryn Camacho Start : 27-Feb-2008 End : 07-Aug-2008 Discontinued Allergies and Adverse Reactions Name Dates Details Codeine- Hallucinations (Allergy) Status: Active Nabumetone *ANALGESICS - ANTI-INFLAMMATORY* (Allergy) Status: Active Past Medical History Name Dates Details Abnormal weight loss (R63.4, 783.21) Comments: stabilized - Status: Inactive as of 08-Mar-2018 Chest pain (R07.9, 786.59) Status: Inactive as of 08-Mar-2018 Encounter for Medicare annual wellness exam (Z00.00, V70.0) Status: Inactive as of 06-Apr-2014 Encounter for screening mammogram for breast cancer (Renamed from Encounter for screening mammogram for malignant neoplasm of breast) (Z12.31, V76.12) Status: Inactive as of 21-Dec-2015 Hyperinflation of lungs (R09.89, 786.9) Status: Inactive as of 08-Mar-2018 Knee Pain (M25.569, 719.46) Comments: better Status: Inactive as of 08-Mar-2018 Left lower quadrant pain (Renamed from Abdominal pain, left lower quadrant) (R10.32, 789.04) Status: Inactive as of 08-Mar-2018 Low back pain (M54.5, 724.2) Status: Inactive as of 08-Mar-2018 Pain in limb (M79.609, 729.5) Status: Inactive as of 08-Mar-2018 Pain of right lower leg (M79.661, 729.5) Status: Inactive as of 08-Mar-2018 Palpitations (R00.2, 785.1) Status: Inactive as of 08-Mar-2018 screen Status: Inactive as of 07-Jul-2009 screening Status: Inactive as of 13-Jun-2010 screening Status: Inactive as of 21-Dec-2015 screening Status: Inactive as of 13-Jan-2013 screening Status: Inactive as of 13-Jan-2013 screening Status: Inactive as of 06-Apr-2014 Procedures Procedure Dates Details carpal tunnel right Completed Cataract Removal, Insert Prosthetic Lens Completed Comments: both 2010 Tonsillectomy Completed Date Value Details 06-Feb-2018 Electroencephalogram Result: Comments: See Note; NOTES: [facility] Pulmonary Services/Neurology [address] [place] [address] MR#: [id number] Acct: [id number] Name: JACI BEE Rep #: [id number] : 1940 77 From: Annika Salmon MD Referring Dr: Aparna William DO Status: REG CLI Ordering Dr: Date: Location: [facility] Sex: F C - Electroencephalogram Date of Service: 01/18/18 History EEG is being done in this 77 yr F to rule out seizures EEG Description: This is an 18 channel EEG with 10-20 lead placement system. Bipolar montages, Referential and Circumferential montages were reviewed. Ph otic stimulation and Hyperventilation were performed. The posterior dominant background rhythm is 9 HZ synchronous, symmetric, reacting to eye opening and closing. Photo stimulation elicited normal dri ving response but no abnormal photoparoxysmal response, Hyperventilation did not elicit any abnormal photoparoxysmal response. Sleep was identified. There was no epileptiform discharges or electrographi c seizures noted during this recording. EEG Interpretation This is a normal awake and asleep EEG. There is no epileptiform discharges or electrographic seizures noted during the record. 02/06/18 1455 <Electronically signed by Annika Salmon MD> Date Annika Salmon MD CC: Gonsalo Salmon MD; Aparna William DO Date Dictated: 01/26/18 1023 Date Transcribed: 01/26/18 1023 Nurse Executive: RSR Signed 27-Sep-2017 Pulmonary Function Test Result: Comments: See Note; NOTES: [facility] Pulmonary Services/Neurology [address] [place] [address] MR#: [id number] Acct: [id number] Name: JACI BEE Rep #: [id number] : 1940 76 From: Robert Rodriguez DO Referring Dr: Aparna William DO Status: REG CLI Ordering Dr: Date: Location: [facility] Sex: F C INTRODUCTION: The patient is a 76-year-old female currently under the care of Dr. william the presents for pulmonary function testing secondary to a diagnosis of hyperinflation. Respiratory therapy reports good patient effort and reports no other concerns. Bronchodilato rs were used during testing. INTERPRETATION: Forced expiration spirometry demonstrates no evidence of a large airways obstructive ventilatory defect. There was no significant response to aerosolized br onchodilators, based upon strict ATS criteria. Spirogram is of good quality and plateau gradually indicating slow emptying of the lungs. The respiratory flow volume loop reveals decreased expiratory fe w rates primarily at high lung volumes which can be seen in small airways obstruction. Body plethysmography was performed and reveals lung volumes to be within normal limits. Diffusing capacity by singl e breath CO is within normal limits. IMPRESSION: These pulmonary function studies are essentially within normal limits. There are subtle findings of potential small airways obstruction. If there is cli nical concern for underlying asthma, a methacholine challenge can be ordered. 09/27/17 1340 <Electronically signed by Robert Rodriguez DO> Date __ Robert Rodriguez DO CC: Aparna William DO Date Dictated: 09/27/176 Date Transcribed: 09/27/17 1336 Nurse Executive: DB Signed 20-Sep-2017 SCREENING MAMM (CAD), BILAT Result: Comments: See Note; NOTES: [facility] Imaging Services [address] [place] [address] SCREENING MAMM (CAD), BILAT MR#: [id number] Acct: [id number] Name: JACI BEE Rep #: [id number] : 1940 F 76 From: Constantino Bryan MD PCP: Aparna William DO Status: REG CLI Study: SCREENING MAMM (CAD), BILAT Date of Exam: 09/20/17 Exam# [id number] Ordering Dr: Aparna William DO MAMMOGRAPHY - BILATERAL SCREENING REASON FOR EXAM: Female, 76 years old. Routine annual screening examination. PERTINENT HISTORY: Non-contributory. TECHNIQUE: Digital bilateral breast chilango (3D mammog raphic acquisition) in the CC and MLO projections. 2-D mediolateral oblique (MLO) and craniocaudad (CC) views of both breasts were obtained. CAD: Full Field Digital Mammography with Computer Added Detec tion was performed. COMPARISON: Comparison is made with prior study dated September 19, 2016 and September 17, 2015. FINDINGS: Breast Composition: There are scattered areas of fibroglandular density. There are no dominant masses or suspicious calcifications. No other significant abnormalities are identified. There has been no significant change since the prior airam dy. HPBI/SCREENING MAMM (CAD), BILAT IMPRESSION: Stable bilateral screening mammogram. Yearly follow-up mammogram recommended. (A) ASSESSMENT CATEGORY: BIRADS Category 1: Negative. A letter regarding these results will be sent to the patient by the facility within 30 days. Approximately 10% of breast cancer s are not detected by mammography. A normal mammogram should not delay biopsy of a clinically suspicious abnormality. [id number] Electronically Signed: Constantino Bryan MD at 11:06 EST Tel [phone], Service support , CC: Aparna William DO Nurse Executive: Signed 23-Aug-2017 Liver Result: Comments: See Note; NOTES: [facility] Imaging Services [address] [place] [address] Liver MR#: [id number] Acct: [id number] Name: JACI BEE Rep #: [id number] : [birth year] F 76 From: Constantino Bryan MD PCP: Aparna William DO Status: REG CLI Study: Liver Date of Exam: 08/23/17 Exam# [id number] Ordering Dr: Aparna William DO STUDY: ABDOMINAL ULTRASOUND - RIGHT UPPER QU ADRANT REASON FOR VISIT: Female, 76 years old. History of fatty infiltration of the liver. TECHNIQUE: Ultrasound evaluation of the right upper quadrant was performed with real-time and static tolliver-sca le imaging. TECHNICAL QUALITY: Adequate. COMPARISON: Comparison is made with prior examination dated March 26, 2009. FINDINGS: Liver: The liver measures 16.5 cm. There is increased echogenicity consistent with fatty infiltration. The bile ducts are within normal limits. There is hepatic color flow. The direction of portal flow is hepatopetal. There is no demons trated mass lesion. Gallbladder: Normal distended gallbladder. The gallbladder wall measures 2.7 mm. There is a negative sonographic Sherman's sign. There is no pericholecystic fluid. There are no galls tones. Common Bile Duct (C.B.D.): The common bile duct measures 5.7 mm. Pancreas: Normal size of the head, body and tail of the pancreas. There is normal echogenicity of the pancreas. There is no demo nstrated pancreatic mass or cyst. Right Kidney: Normal size of the right kidney. The right kidney measures 9.9 cm x 5.2 cm x 4.8 cm. Normal renal cortex. The right cortex measures 1.1 cm. There is no d emonstrated renal mass or cyst. There is no right hydronephrosis. US/Liver IMPRESSION: Fatty infiltration of the liver. Electronically Signed: Carl Bryan MD at 10:14 EST Tel [phone], Service support , CC: Aparna William DO Nurse Executive: Signed 20-Aug-2017 Chest PA and Lateral Result: Comments: See Note; NOTES: [facility] Imaging Services [address] [place] [address] Chest PA and Lateral MR#: [id number] Acct: [id number] Name: JACI BEE Rep #: [id number] : 1940 F 76 From: Constantino Bryan MD PCP: Aparna William DO Status: REG CLI Study: Chest PA and Lateral Date of Exam: 08/20/17 Exam# [id number] Ordering Dr: Aparna William DO STUDY: X-RAY C HEST REASON FOR EXAM: Female, 76 years old. 2 month history of atypical chest pain. TECHNIQUE: PA and lateral views of the chest. COMPARISON: None. FINDINGS: Hyp erinflation. Decreased bronchovascular markings suggestive of emphysematous change. Scattered calcified granulomas. Mild increased linear markings at the lung bases suggestive of scarring. Increased alex ear markings at the right apex suggestive of scarring. There is no demonstrated pleural abnormality. Normal size heart. Normal mediastinum and johnna. Normal visualized pulmonary arteries. Normal visuali zed aortic arch and descending thoracic aorta. There is demineralization of the osseous structures. Normal visualized ribs, clavicles, and shoulders. There is no demonstrated abnormality of the visual ized soft tissue structures of the upper abdomen. RAD/Chest PA and Lateral IMPRESSION: Hyperinflation. Findings suggest some mild linear scarring at the right apex and at both lung bases. Electronically Signed: Constantino Bryan MD at 19:29 EST Tel [phone], Service support , CC: Aparna William DO Nurse Executive: Signed 19-Sep-2016 Dexa Bone Density Study (HP) Result: Comments: See Note; NOTES: [facility] Imaging Services [address] [place] [address] Verdana 4d Dexa Bone Density Study (HP) MR#: [id number] Acct: [id number] Name: KEIKO BEE Rep #: [id number] : 1940 F 75 From: Constantino Bryan MD PCP: Aparna William DO Status: REG CLI Study: Dexa Bone Density Study () Date of Exam: 09/19/16 Exam# [id number] Ordering Dr: Aparna William DO STUDY: DUAL ENERGY X-RAY ABSORPTIOMETRY / DXA REASON FOR EXAM: Female, 75 years old. The patient is postmenopausal. Loss of height. TECHNIQUE: Bone Mineral Density (BMD) measurements of l umbar spine and bilateral hips were obtained. COMPARISON: Comparison is made with prior study dated February 17, 2015. FINDINGS: Lumbar Spine (L1-L4): g/cm2 (1.032) / T-score (-1.2) / Z-score (0.5) Findings are suggestive of osteopenia with a moderate fracture risk. Left Femur Total: g/cm2 (0.869) / T-score (-1.1) / Z-score (0.7) Left Femoral Neck: g/cm2 (0.821) / T -score (-1.6) / Z-score (0.4) Right Femur Total: g/cm2 (0.858) / T-score (-1.2) / Z-score (0.6) Right Femoral Neck: g/cm2 (0.830) / T-score (-1.5) / Z-score (0.5) The T-Scores on the most recent prior examination were: Lumbar Spine (L1-L4): There has been worsening of bone density since the previous examination. Left Femur Total: which represents a worsening of 1.8%. Right Femur Total: which repres ents a worsening of 4.0%. 0007 HPBD/Dexa Bone Density Study (HP) IMPRESSION: The patient is considered osteopenic as outlined below according to World Marlon Organization (WHO) criteria with a moderate fracture risk. There has been worsening of bone density since the previous examination. Reference Information: Th e T-score is the number of standard deviations above or below the standard which is normal for young adults at their peak bone mineral density. The World Health Organization (WHO) interprets the T-score s as follows: Above -1 Normal bone density Between -1 and -2.5 Osteopenia Equal to / or below -2.5 Osteoporosis As a practical clinical guideline, osteopenia may be graded as follows: Mild -1 through -1.5 Moderate -1.6 through -2.0 Severe -2.1 through -2.4 The Z-score is the number of standard deviations above or below age-matched controls. A Z-score of less than -1.5 would be considered abnormal. References: 1. NIH Osteoporosis and Related Bone Diseases http://www.osteo.org 2. International Society for Clinical Densitometry http://www.iscd.org 3. National Osteoporosis Foundation http://www.nof. org Electronically Signed: Constantino Bryan MD at 14:02 EST Tel [phone], Service support [phone], CC: Aparna William DO Nurse Executive: Signed 19-Sep-2016 SCREENING MAMM (CAD), BILAT Result: Comments: See Note; NOTES: [facility] Imaging Services [address] [place] [address] Verdana 4d SCREENING MAMM (CAD), BILAT MR#: [id number] Acct: [id number] Name: FERMIN BEE Rep #: [id number] : 1940 F 75 From: Constantino Bryan MD PCP: Aparna William DO Status: [facility] Study: SCREENING MAMM (CAD), BILAT Date of Exam: 09/19/16 Exam# [id number] Ordering Dr: Aparna William DO MAMMOGRAPHY - BILATERAL SCREENING REASON FOR EXAM: Female, 75 years old. Routine annual screening examination. PERTINENT HISTORY: Non- contributory. TECHNIQUE: Digital bilateral breast chilango (3D mammographic acquisition) in the CC and MLO projections. 2-D mediolateral oblique (MLO) and craniocaudad (CC) views of both breasts were obtained. CAD: Full Field Digital Mammography with Computer Added Detection was performed. COMPARISON: Comparison is made with prior study dated September 17, 2015 and August 20, 2014. FINDINGS: Breast Composition: There are scattered areas of fibroglandular density. There are no dominant masses or suspicious calcifications. No other significant abnormalities are identified. There has been no significant change since the prior study. HPBI/SCREENING MAMM (CAD), BILAT IMPRESSION: Stable bilateral screening mammogram. Yearly follow-up mammogram recommended. (A) ___ ASSESSMENT CATEGORY: BIRADS Category 1: Negative. A letter regarding these results will be sent to the patient by the facility within 30 days. Approximately 10% of pablo ast cancers are not detected by mammography. A normal mammogram should not delay biopsy of a clinically suspicious abnormality. [id number] Electronically Signed: Constantino Bryan MD at 15:03 EST Tel [phone], Service support [phone], CC: Aparna William DO Nurse Executive: Signed 21-Jan-2016 Emergency Department Summary Result: Comments: See Note; NOTES: [facility] Medical Records Department [address] [place] [address] Emergency Department Summary MR#: [id number] Acct: [id number] Name: JACI BEE Rep #: [id number] : 1940 75 From: Erich Contreras MD PCP: Aparna William DO Status[facility] DATE OF SERVICE: 01/17/2016 CHIEF COMPLAINT: Abdominal pain. HISTORY OF PRESENT ILLNESS: The patient points to her left side as source of discomfort, left flank, left abdominal pain for about 10 hours now. Fairly severe, started to go away, came back and couple of times, colicky , vomited 3-4 times. No diarrhea. Last stool today, normal. She had a little bit of frequency. No recurrent history of kidney stone, urinary infections. She thinks it might be diverticulitis or divert iculosis or family is with her. No black or red stools. PHYSICAL EXAMINATION: VITAL SIGNS: Stable. HEENT: Normal. Mucous membranes slightly dry. NECK: Supple. No adenopathy. HEART: Regular with n ormal S1, S2 in the 70s. LUNGS: No wheezes, rhonchi, accessory muscle use. ABDOMEN: Soft with some mild left lateral pain on palpation into a moderate left CVA tenderness. EXTREMITIES: Without cyano sis or edema. NEUROLOGICAL: Alert and oriented. No focal neurological deficits. TREATMENT: CBC normal. BUN and creatinine slightly up at 19 and 1.25. Urine without signs of infection. Morphine 4 mg , Zofran 4 mg IV has markedly helped her pain. She did not need anything else. She said she is not in pain. She was hydrated with saline. CT flank showed 3 mm calculus in the bladder with some punctat e calcifications still in the kidneys. At this point, she may be a passed kidney stone. I advised her that she should not have pain and it does return, or nausea, vomiting that there might be another diagnosis and this could have an incidental finding were not correct. Her family is with her. She voiced understanding and stable and improved. Follow up within a week with family doctor. Recheck simona ner for worse pain, fever, chills, nausea, vomiting, dizziness. DIAGNOSIS: Acute left abdominal pain with passed ureteral calculus. MD Edwina Yadav C: Aparna William DO T: NTS JOB: [id number] 01/21/16 0755 <Electronically signed by Erich Contreras MD> Date Erich Contreras MD Cosigner Signature (If Indicated): Date _ CC: Aparna William DO Date Dictated: 01/17/16939 Date Transcribed: 01/17/16939 Nurse Executive: Signed 17-Jan-2016 Discharge Instruction Result: Comments: See Note; NOTES: [facility] Medical Records Department [address] [place] [address] Discharge Instruction 01/17/1634 MR#: [id number] Acct: [id number] Name: JACI BEE Rep #: [id number] : 1940 75 From: Erich Contreras MD PCP: Aparna William DO Status: REG ER ED Disposition - Plan for ED Patient: Chief Complaint: Abd Pain Instructi ons: ED Kidney Stone, Passed Referrals: Aparna William DO [Primary Care Provider] - Keep Surendra appointment What to do if you have Problems For any increased pain, shortness of breath, bleeding, nause a or vomiting, chest pain, or any unexpected problems, contact your doctor. Call [facility] ([phone]) or report to the closest Emergency Room. Call 911 if necessary. 01/17/16 0835 &amp ;#60;Electronically signed by Erich Contreras MD> Date Erich Contreras MD Cosigner Signature (If Indicated): Date CC: Aparna William DO 17-Jan-2016 Abdomen/Pelvis without Cont Result: Comments: See Note; NOTES: [facility] Imaging Services [address] [place] [address] Verdana 4d Abdomen/Pelvis without Cont MR#: [id number] Acct: [id number] Name: JACI BEE Rep #: [id number] : 1940 F 75 From: Constantino Bryan MD PCP: Aparna William DO Status: REG ER Study: Abdomen/Pelvis without Cont Date of Exam: 01/17/16 Exam# [id number] Ord ering Dr: Erich Contreras MD STUDY: CT ABDOMEN AND PELVIS WITHOUT CONTRAST REASON FOR EXAM: Female, 75 years old. Left lower quadrant pain. RADIATION DOSAGE (If Supplied By Facility): CTDIvol = ( 6 .04 ) mGy, DLP = ( 307.59 ) mGycm TECHNIQUE: Transaxial images were obtained from the dome of the diaphragm to the symphysis pubis without oral contrast, and without intravenous contrast. Sagittal and coronal images were reconstructed. Individualized dose optimization techniques were used for this CT. COMPARISON: Comparison is made with prior study dated January 20, 2014. FINDINGS: Mild degree of increased markings at the lung bases suggestive of scarring. This is unchanged. Coronary artery calcification. There is decreased attenuation of the liver co nsistent with steatosis. Stable 1.4 cm hypodensity in the segment 4 of the liver. This is unchanged and most likely represents a small cyst. Normal gallbladder and extrahepatic biliary system. Normal spleen. Normal pancreas. Normal bilateral adrenal glands. Punctate calcifications in the right kidney. Stable punctate calcifications in the left kidney. Stable 2 cm cyst in the medial midportion of the left kidney. There is a small hiatal hernia. Normal small intestine. There are multiple colonic diverticula consistent with diverticulosis. The appendix is visualized and appears normal. N ormal abdominal aorta. Normal inferior vena cava. Normal retroperitoneum. A 2 mm rounded calcification is seen at the base of the bladder. This may represent a recently passed calculus. Normal abd ominal wall. There are diffuse degenerative changes of the visualized lumbar spine. Grade 1 anterior listhesis of L4 on L5. IMPRESSION: Fatty infiltration of the liver. Stable cyst in the right lobe of the liver. Bilateral nonobstructive intrarenal calculi. 3 mm calculus seen at the base of the bladder. This is in keeping with a recently passed calculus. Electronically Signed: Constantino Bryan MD at 8:11 EDT Tel [phone], Service support [phone], CC: Aparna William DO; Erich Contreras MD Nurse Executive: Signed 10-Jan-2016 Echocardiogram Complete Result: Comments: See Note; NOTES: [facility] Cardiovascular Services [address] [place] [address] Echo Complete 01/10/16 0848 MR#: [id number] Acct: [id number] Name: JACI HA Rep #: [id number] : 1940 75 From: Bari Mosley MD Attending Dr: Aparna William DO Status: REG CLI Ordering Dr: Aparna William DO Date: 01/10/16 Location: [facility] Sex: F C Admitted: Reason For Study: Precordial Pain Procedure This was a 2D Doppler, Color Flow transthoracic echocardiogram. Exam performed in department. Left Ventricle Normal LV size. Left ventricular systol ic function is normal. The estimated ejection fraction is 60 %. Transmitral and pulmonary venous doppler flow suggestive of impaired relaxation of left ventricle. No regional wall motion abnormalitie s noted. Right Ventricle Normal RV size. Normal systolic function. Atria Normal left atrium. Normal right atrium. Mitral Valve Normal mitral valve. Mild (1+) mitral valve insufficiency. Tricus pid Valve Normal tricuspid valve. Mild tricuspid valve insufficiency. Aortic Valve Trisinus/trileaflet aortic valve. Pulmonic Valve Normal pulmonic valve. Great Vessels Normal aortic root. The pulmonary artery is normal size. Normal inferior vena cava. Pericardium/Pleural No pericardial effusion. MMode/2D Measurements AND Calculations LVIDd: 4.1 cm IVSd: 0.77 cm Ao root diam: 2.6 cm L VIDs: 2.2 cm LVPWd: 0.81 cm LA dimension: 3.1 cm RVDd: 3.3 cm FS: 47.5 % LAV(MOD-bp): 22.2 ml LA A4 area: 10.1 cm2 R A A4 area: 9.4 cm2 LAV(MOD-bp) Indexed: 13.2 ml/m2 LAV(MOD-sp2): 24.3 ml LAV(MOD- sp4): 20.8 ml Doppler Measurements AND Calculations MV E max saurav: 49.3 cm/sec Lat Peak E' Saurav: 4.6 cm/sec Med Peak E ' Saurav: 2.7 cm/sec MV A max saurav: 86.8 cm/sec E/E' lat: 10.6 E/E' med: 18.0 MV E/A: 0.57 Ao V2 max: 112.6 cm/sec LV V 1 max: 83.7 cm/sec PA V2 max: 76.0 cm/sec Ao max P.1 mmHg LV V1 max P.8 mmHg Ao V2 mean: 86.8 cm/sec Ao mean P.1 mmHg Ao V2 VTI: 23.6 cm PI end-d saurav: 92.9 cm/sec TR max saurav: 219.1 cm/sec TR max P.4 mmHg Interpretation Summary Normal LV size. Left ventricular systolic function is normal. Th e estimated ejection fraction is 60 %. Transmitral and pulmonary venous doppler flow suggestive of impaired relaxation of left ventricle Mild (1+) mitral valve insufficiency. Mild tricuspid valve in sufficiency. Ordering Physician: Aparna William Referring Physician: Aparna William Performed By: Terra Hurt, RDCS, RVT 01/10/16 1229 Date Bari Mosley MD CC: Aparna William DO Date Dictated: 01/10/1648 Date Transcribed: 01/10/16 1229 Nurse Executive: Signed 10-Jan-2016 Nuclear Stress Test - Treadmil Result: Comments: See Note; NOTES: [facility] Imaging Services [address] [place] [address] Verda 4d Nuclear Stress Test - Treadmil MR#: [id number] Acct: [id number] N debbie: JACI BEE Rep #: [id number] : 1940 75 From: Bari Mosley MD Primary Care: Apanra William DO Status: REG CLI Ordering Dr: Aparna William DO Sex: F C DATE OF SERVICE: A 75-year-ol d lady with a history of precordial chest pain. MEDICATIONS: Famotidine, aspirin, and pravastatin. Resting EKG demonstrates normal sinus rhythm with a rate of 65 beats per minute. Normal intervals are noted. Resting blood pressure was 150/86. STRESS TEST: The patient exercised according to the regular Ayo protocol for a total duration of 5 minutes and 30 seconds. The maximum heart rate att ained was 176 beats per minute, which was 121% of maximum predicted heart rate. The maximum workload attained was 7 METS. At rest, the patient maintained sinus rhythm throughout the recording. At rest , there were no ST or T-wave changes noted to suggest ischemia. At peak exercise, upsloping ST changes only were noted, which did not meet the criteria for ischemia. Occasional premature ventricular complexes were noted. There were ventricular couplet beats also noted. No clinical angina was noted. The test was terminated due to leg fatigue. Resting blood pressure was 150/86 with a peak blood pr essure of 182/90. Rate pressure product was 29,400. MYOCARDIAL PERFUSION PROTOCOL: 11.3 mCi of sestamibi was injected at rest. The patient exercised according to a regular Ayo protocol for a tota l duration of 5 minutes and 30 seconds attaining 121% of maximum predicted heart rate and a workload of 7 METS. At peak exercise, 33.1 mCi of sestamibi was injected. Stress images were obtained. Stres s and rest images were reconstructed and compared in the short axis, vertical long and horizontal long axes. Gated images were also obtained. PERFUSION SPECT ANALYSIS: Review of the images demonstr ated normal uptake of tracer noted in all areas of the myocardium. The resting images similarly demonstrated normal uptake of tracer noted in all areas of the myocardium. No areas of reversibility are noted to suggest ischemia or infarct. GATED SPECT ANALYSIS: The gated ejection fraction is noted to be 74%. CONCLUSION: 1. Exercise myocardial perfusion stress test with no evidence of ischemia at a moderate workload. 2. No clinical angina noted. 3. Occasional premature ventricular complexes only noted. 4. Excellent functional work capacity. Bari Mosley MD T: NTS JOB: [id number] 01/14/1609 <Electronically signed by Bari Mosley MD> Date Bari Mosley MD CC: Aparna William DO Date Dictated: 01/10/16933 Date Transcribed: 01/10/16933 Nurse Executive: Signed 21-Dec-2015 EKG ([id number]) Comments: ekg showed normal sinus rhythym, normal axis, no acute st/t wave changes Result: [MEASUREMENTS ANALYSIS] Date of Test: 12/21/2015 11:21:34; Heart Rate: 71; UT Interval: 178; QRS: 88; QT Interval: 396; Corrected QT Interval (QTc): 415; P Wave [place]: 54; QRS Wave [place]: 12; T Wave [place]: 45; Blood Pressure: 154/90 [ECG DIAGNOSTIC STATEMENTS] Date of Test: 12/21/2015 11:21:34; Summary: Sinus Rhythm WITHIN NORMAL LIMITS 17-Sep-2015 Bilat Scrn Digital AND CAD Result: Comments: See Note; NOTES: [facility] Imaging Services [address] [place] [address] Verdapalma 4d Bilat Scrn Digital AND CAD MR#: [id number] Acct: [id number] Name: JACI BEE Rep #: [id number] : 1940 F 74 From: Constantino Bryan MD PCP: Aparna William DO Status: REG CLI Study: Bilat Scrn Digital AND CAD Date of Exam: 09/17/15 Exam# [id number] Orde ring Dr: Aparna William DO MAMMOGRAPHY - BILATERAL SCREENING REASON FOR EXAM: Female, 74 years old. Routine annual screening examination. PERTINENT HISTORY: Non-contributory. TECHNIQUE: Digital examination. Mediolateral oblique (MLO) and craniocaudad (CC) views of both breasts were obtained. CAD: CAD was performed on this study. COMPARISON: Comparison is made with prior study dated August 20, 2014 and July 21, 2013. FINDINGS: Breast Composition: There are scattered areas of fibroglandular density. There are no dominant masses or suspicious calcifications. No other significant abnormalities are identified. There has been no significant change since the prior study. IMPRESSION: Stable bilateral scr eening mammogram. Yearly follow-up mammogram recommended. (A) ASSESSMENT CATEGORY: BIRADS Category 1: Negative. A letter regarding these results will be sent t o the patient by the facility within 30 days. Approximately 10% of breast cancers are not detected by mammography. A normal mammogram should not delay biopsy of a clinically suspicious abnormality. [id number] Electronically Signed: Constantino Bryan MD at 14:44 EST Tel [phone], Service support [phone], CC: Aparna William DO Nurse Executive: Signed 13-Apr-2015 S-C Jts Min 3 Views Result: Comments: See Note; NOTES: [facility] Imaging Services [address] [place] [address] Radiology Report MR#: [id number] Acct: [id number] Name: JACI BEE Rep #: [id number] : 1940 F 74 From: Constantino Bryan MD PCP: Aparna Wililam DO Status: REG CLI Study: S-C Jts Min 3 Views Date of Exam: 04/13/15 Exam# [id number] Ordering Dr: Aparna William DO STUDY: X-RAY - STERNOCLAVICULAR JOINTS (BILATERAL) REASON FOR EXAM: Female, 74 years old. Right clavicular pain. TECHNIQUE: 3 view(s) of the bilateral sternoclavicular joints were obtained. COMPARISON: None. FINDINGS: Normal bilateral sternoclavicular articulations. Normal visualized bilateral clavicles. Normal manubrium. Normal visualized ribs. IMPRESSION: Normal x-ray of the bilateral sternoclavicular articulations. Electronically Signed: Constantino Bryan MD at 15:10 EDT Tel [phone], Service s upport [phone], RAD/S-C Jts Min 3 Views IMPRESSION: Normal x-ray of the bilateral sternoclavicular articulations. Electronically Signed: Constantino martinez MD at 15:10 EDT Tel [phone], Service support [phone], CC: Aparna William DO Nurse Executive: Signed 20-Aug-2014 Gege Hernandez Digital AND CAD Result: Comments: See Note; NOTES: [facility] Imaging Services [address] [place] [address] Breast Imaging Report MR#: [id number] Acct: [id number] Name: JACI BEE Rep #: [id number] : 1940 F 73 From: Constantino Bryan MD PCP: Aparna William DO Status: REG CLI Study: Gege Hernandez Digital AND CAD Date of Exam: 08/20/14 Exam# [id number] Ordering Dr: Aparna William DO MAMMOGRAPHY - BILATERAL SCREENING REASON FOR EXAM: Female, 73 years old. Routine annual screening examination. PERTINENT HISTORY: Non-contributory. TECHNIQUE: Digital examination. Mediolater al oblique (MLO) and craniocaudad (CC) views of both breasts were obtained. CAD: CAD was performed on this study. COMPARISON: Comparison is made with prior study dated July 21, 2013 and [facility] 2011. FINDINGS: Breast Composition: There are scattered areas of fibroglandular density. There are no dominant masses or suspicious calcifications. No o ther significant abnormalities are identified. There has been no significant change since the prior study. IMPRESSION: Stable bilateral screening mammogram. Year ly follow-up recommended. (A) ASSESSMENT CATEGORY: BIRADS Category 2: Benign. A letter regarding these results will be sent to the patient by the facility within 30 days. Approximately 10% of breast cancers are not detected by mammography. A normal mammogram should not delay biopsy of a clinically suspicious abnormality. Electronically Signed: Constantino harden MD at 10:22 EST Tel [phone], Service support [phone], CC: Aparna William DO Nurse Executive: Signed 20-Aug-2014 Dexa Bone Density Study (HP) Result: Comments: See Note; NOTES: [facility] Imaging Services [address] [place] [address] Bone Density Report MR#: [id number] Acct: [id number] Name: JACI BEE Rep #: [id number] : 1940 F 73 From: Constantino Bryan MD PCP: Aparna William DO Status: REG CLI Study: Dexa Bone Density Study (HP) Date of Exam: 08/20/14 Exam# [id number] Ordering Dr: Aparna William DO STUDY: DUAL ENERGY X-RAY ABSORPTIOMETRY / DXA REASON FOR EXAM: Female, 73 years old. The patient is postmenopausal. TECHNIQUE: Bone Mineral Density (BMD) measurements of lumbar spine and bilat eral hips were obtained. COMPARISON: Comparison is made with prior study dated July 18, 2012. FINDINGS: Lumbar Spine (L1-L4): g/cm2 (1.043) / T-score (-1.1 ) / Z-score (0.6) Findings are suggestive of osteopenia with a low fracture risk. Left Femur Total: g/cm2 (0.885) / T-score (-1.0) / Z-score (0.7) Left Femoral Neck: g/cm2 (0.806) / T-score (-1.7) / Z-score (0.2) Right Femur Total: g/cm2 (0.894) / T-score (-0.9) / Z-score (0.8) Right Femoral Neck: g/cm2 (0.801) / T-score (-1.7) / Z-score (0.2) The T- Scores on the most recent prior examination were: Lumbar Spine (L1-L4): There has been worsening of bone density since the previous examination. Left Femur Total: which represents a worsening of 3.4%. Right Femur Total: which represents a w orsening of 5.0%. IMPRESSION: The patient is considered osteopenic as outlined below according to World Marlon Organization (WHO) criteria with a moderate fractur e risk. There has been worsening of bone density since the previous examination. Reference Information: The T-score is the number of standard deviations above o r below the standard which is normal for young adults at their peak bone mineral density. The World Health Organization (WHO) interprets the T-scores as follows: Above -1 Normal bone density Betwe en -1 and -2.5 Osteopenia Equal to / or below -2.5 Osteoporosis As a practical clinical guideline, osteopenia may be graded as follows: Mild -1 through -1.5 Moderate -1.6 through -2.0 Severe -2.1 through -2.4 The Z-score is the number of standard deviations above or below age-matched controls. A Z-score of less than -1.5 would be considered abnormal. References: 1. NIH Osteoporosis and Rel ated Bone Diseases http://www.osteo.org 2. International Society for Clinical Densitometry http://www.iscd.org 3. National Osteoporosis Foundation http://www.nof.org Electronically Signed: Constantino Bryan MD at 11:26 EST Tel [phone], Service support [phone], CC: Aparna William DO Nurse Executive: Signed 20-Jan-2014 Abdomen/Pelvis WITH Contrast Result: Comments: See Note; NOTES: [facility] Imaging Services [address] [place] [address] CAT Scan Report MR#: [id number] Acct: [id number] Name: JACI BEE Rep #: [id number] : 1940 F 73 From: Jose J Gordillo MD PCP: Aparna William DO Status: REG CLI Study: Abdomen/Pelvis WITH Contrast Date of Exam: 01/20/14 Exam# [id number] Ordering Dr: Aparna William DO STUD Y: CT ABDOMEN AND PELVIS WITH CONTRAST REASON FOR EXAM: Female, 73 years old. Worsening lower quadrant pain for a couple months. RADIATION DOSAGE (If Supplied By Facility): CTDIvol = ( 11.64 ) mGy, DLP = ( 927.60 ) mGycm TECHNIQUE: Transaxial images were obtained from the dome of the diaphragm to the symphysis pubis with oral contrast. 100 ml of Isovue 370 contrast was administered. Sagittal and coronal images were reconstructed. COMPARISON: CT abdomen pelvis April 13, 2013. FINDINGS: There is stable mild elevation of the right diaphragm. The v isualized lung bases are unremarkable. There are coronary artery calcifications. Moderately defined 1.4 cm low-density consistent with a cyst in segment 4 of liver is unchanged. There is stable fatt y infiltration of liver with relative sparing of the anterolateral periphery of segment 4. Normal gallbladder and extrahepatic biliary system. Normal spleen. Normal pancreas. Normal bilateral adren al glands. Normal right kidney. Stable oval-shaped 1.75 cm low-density consistent with a cortical cyst in the medial upper pole of left kidney. 2-3 mm nonobstructing stone in the upper pole of left kidney. No hydronephrosis. There is a small hiatal hernia. Normal small intestine. Normal colon. There is non-visualization of the appendix. There is mild atherosclerotic calcification of the abdom inal aorta and iliac arteries, without a demonstrated aneurysm. Normal inferior vena cava. Left ovarian vein is dilated to 7.5 mm, and communicates with bilateral parametrial varices. Normal urinar y bladder. Normal visualized retroverted uterus. Normal abdominal wall. There are stable degenerative changes of the visualized lumbar spine and pubic symphysis. Mild L4-5 spondylolisthesis is uncha nged. IMPRESSION: 1. Bowel wall thickening of a jejunal loop and the sigmoid colon seen on prior study has resolved. No new areas of suspicious bowel wall thick ening. No bowel distention or signs of obstruction. 2. 2-3 mm nonobstructing stone again seen in the upper pole of left kidney. No hydronephrosis. 3. Stable cortical cyst in the medial upper pole lef t kidney. 4. 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 5. Stable small hiatal hernia. 6. Stable 1.4 cm probable cyst in segment 4 of liver. Fatty infiltration of the liver with sparing in the periphery of segment 4 also again noted. 7. Stable mild elevation of the right diaphragm. 8. The appendix is not visualized. 9. Stable degenerative changes in the spine with a mild L4-5 spondylolisthesis. 10. Mild atherosclerotic calcification of coronary arteries, abdominal aorta, and pel ruben arteries. Electronically Signed: Renaldo Gordillo MD at 17:37 EDT , Service support [phone], CC: Aparna William DO Nurse Executive: Signed 21-Jul-2013 Bilat Scrn Digital & CAD Result: Comments: See Note; NOTES: [facility] Imaging Services [address] [place] [address] Breast Imaging Report MR#: [id number] Acct: [id number] Name: JACI BEE Rep #: [id number] : 1940 F 72 From: Jose J Gotti MD PCP: Aparna William DO Status: REG CLI Exam# [id number] Ordering Dr: Aparna William DO MAMMOGRAPHY - BILATERAL SCREENING REASON FOR EXAM: Female , 72 years old. Routine annual screening examination. PERTINENT HISTORY: Non- contributory. TECHNIQUE: Digital examination. Mediolateral oblique (MLO) and craniocaudad (CC) views of both breasts we re obtained. CAD: CAD was performed on this study. COMPARISON: 07/18/12 FINDINGS: The breast composition is almost entirely fat. Glandular tissue is less than 25%. There are no dominant masses or suspicious calcifications. No other significant abnormalities are identified. There has been no significant change since the prior study. IMPRESSION: Stable bilateral screening mammogram. Yearly follow- up recommended. (A) ASSESSMENT CATEGORY: BIRADS Category 1: Negative. A letter regarding these results will be sent to the patient by the facility within 30 days. BR1 Approximately 10% of breast cancers are not detected by mammography. A normal mammogram should not delay bio psy of a clinically suspicious abnormality. Electronically Signed: Renaldo Gotti M.D. at 16:22 EST , Service support [phone], CC: Aparna William DO Nurse Executive: Signed 11-Jun-2013 PT Discharge Summary Result: Comments: See Note; NOTES: [facility] Physical Therapy [facility] [facility]. [address] [place], [place] [address] Fax REHABILITATION SERVICES DISCHARGE SUMMARY MR#: [id number] Acct: [id number] Name: JACI BEE Rep #: [id number] : 1940 72 From: Sheryl Armstrong Referring : Aparna William DO Status: REG RCR Eval Date: Discha rge Date: DATE OF SERVICE: 06/11/2013 This patient was referred to physical therapy by Dr. Aparna William with a chief complaint of back and right lower extremity pain. She has been seen in our cli nancy times a total of 9 visits. Her physical therapy has mainly consisted of therapeutic exercise for dynamic lumbar stabilization and lower extremity strengthening. We used Kristina's extension pr inciples of treatment. She has responded well. She reports 75-80% improvement since starting physical therapy. She reports that she is much better. She is excited to report that kai brownlee is running up and down the steps again. She also reports that it is much easier for her to put her panty hose on and get in and out of the car now. She reports that her right knee felt better right away when she started doing press ups and has stayed better. Upon examination, her lumbar movement is within functional limits all planes. Bilateral lower extremity strength is 5/5 with manual mus ismael testing. She has negative bilateral lower extremity dural signs and she is independent with a home exercise program. Oswestry equals 10, G8979 -- CI and G8980 -- CI. She is appropriate for disch arge at this time and she is agreeable to discharge. Sheryl Armstrong, PT C C: Aparna William DO T: NTS JOB: [id number] <Electronically signed by Sheryl Armstrong > 06/11/13 1344 CC: * Signed 28-May-2013 Inital Evaluation - PT Result: Comments: See Note; NOTES: [facility]. [address] [place] [phone] Fax REHABILITATION SERVICES INITIAL EVALUATION MR#: [id number] Acct: [id number] Name: JACI BEE Rep #: [id number] : [id number] 72 From: Sheryl Armstrong Referring DrJenny: Aparna William DO Status: REG RCR Insurance: MEDIC ARE PART A B Eval Date: DATE OF SERVICE: 05/21/2013 SUBJECTIVE: This patient presents to physical therapy with chief complaint of low back and right lower extremity symptoms. She reports that her low back pain is intermittent, right greater than left, ranging 0-6/10. Her right thigh and knee pain is intermittent and ranges in intensity from 0- 8/10. She states that she has had this pain o ff and on for years. She has had constant numbness in her left toes for about 6 months. She is retired and . Currently, sitting, getting in and out of the car, prolonged standing and initia ting gait after prolonged sitting increases her pain. She reports improvement with rest. The pain is not disturbing her sleep significantly. She has had physical therapy here in the past in 2009 for her back and earlier this year for her knee. She sees a chiropractor with her last visit being a couple of weeks ago and the next one plan for approximately 1 week from now. She thinks Tylenol might help some, also. She denies increased pain with coughing, sneezing or straining. PAST MEDICAL HISTORY: Significant for high cholesterol and migraine headaches. 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 It also revealed degenerative disk disease and right foraminal disk protrusion at L4-L5 with impingement of the exiting righ t L4 nerve root. There is also mild impingement of bilateral L5 nerve roots. She denies having been in any accidents or any unexplained weight loss. She has had right carpal tunnel release in the p ast. She reports that she can push mow her lawn, but she gets leg cramps. OBJECTIVE: This patient ambulates independently into physical therapy without any assistive devices and without any gross d eviations noted. Her sitting posture is poor. Her standing posture is fair. She has a reduced lumbar lordosis, but no relevant lateral shift. Active correction of her sitting posture results in decr eased right thigh and knee pain, but increased low back pain. Passive correction of her sitting posture with lumbar support is tolerated well. Bilateral lower extremity strength is 5/5 with manual muscle testing. Bilateral lower extremity light touch sensation is intact and symmetrical except for her left foot. Bilateral lower extremity reflexes are 1/2. She has negative bilateral lower extr emity dural signs. Lumbar movement loss: Flexion -- nil, extension -- moderate, bilateral side gliding -- moderate. Lumbar extension and right side gliding provokes back pain. She has poor core stre ngth. Her right knee range of motion is decreased at 118 degrees of flexion compared to 127 degrees on the left. TREATMENT: This patient was seen today for posture correction and instruction in juan ropriate activity modifications including avoidance of prolonged sitting and provocation of pain. She demonstrated and communicated a good understanding of these instructions after given. ASSESSME NT: This patient is a 72-year-old female with complaint of back and right thigh/knee pain. She has decreased lumbar range of motion, decreased core strength and decreased right knee range of motion. She also has decreased independent exercise knowledge. Oswestry equals 10, [id number], [id number]. GOALS: 1. Decrease complaint of low back pain. 2. Decrease complaint of bilateral lower extremity sy mptoms. 3. Improve car transfer, prolonged standing such as for kitchen activities and initiation of gait after sitting function. 4. Instruct in prophylaxis. PLAN: We plan to see this patient 3 t imes a week x3-4 weeks for modalities as needed, posture correction, instruction in proper body mechanics and dynamic lumbar stabilization with a neutral spine with home exercise program instruction s. She reports that Dr. William discussed the possible need for pain management with her. She states that she chose to try physical therapy alone first. Sheryl Armstrong, PT T: NTS JOB: [id number] <Electronically signed by Sheryl Armstrong > 05/28/13 1550 CC: Signed For Medicare only, by signing this I certify the plan of care. 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 Status: Active Smoking Status Name Dates Details Never smoker Vital Signs Date Test Result Details [id number] Temperature 97.2 f Comments: Method: Temporal Pulse 75 /min Comments: Pattern: Regular Respiration Rate 16 /min Comments: Pattern: Unlabored BP Systolic 122 mm[Hg] Comments: Patient Position: Sitting; Cuff Location: Left Arm; Cuff Size: Standard BP Diastolic 80 mm[Hg] Comments: Patient Position: Sitting; Cuff Location: Left Arm; Cuff Size: Standard Weight 122.375 lb Height 64 in Body Mass Index Calculated 21.01 kg/m2 Body Surface Area Calculated 1.59 m2 :42 Temperature 97.4 f Comments: Method: Temporal Pulse 60 /min Comments: Pattern: Regular Respiration Rate 16 /min Comments: Pattern: Unlabored BP Systolic 142 mm[Hg] Comments: Patient Position: Sitting; Cuff Location: Left Arm; Cuff Size: Standard BP Diastolic 70 mm[Hg] Comments: Patient Position: Sitting; Cuff Location: Left Arm; Cuff Size: Standard Weight 122.25 lb Height 64 in Body Mass Index Calculated 20.98 kg/m2 Body Surface Area Calculated 1.59 m2 [id number] Temperature 98 f Comments: Method: Temporal Pulse 75 /min Comments: Pattern: Regular Respiration Rate 16 /min Comments: Pattern: Unlabored BP Systolic 120 mm[Hg] Comments: Patient Position: Sitting; Cuff Location: Left Arm; Cuff Size: Standard BP Diastolic 60 mm[Hg] Comments: Patient Position: Sitting; Cuff Location: Left Arm; Cuff Size: Standard Weight 122.5 lb Height 64 in Body Mass Index Calculated 21.03 kg/m2 Body Surface Area Calculated 1.59 m2 :27 Temperature 98.7 f Comments: Method: Temporal Pulse 76 /min Comments: Pattern: Regular Respiration Rate 16 /min Comments: Pattern: Unlabored BP Systolic 120 mm[Hg] Comments: Patient Position: Sitting; Cuff Location: Left Arm; Cuff Size: Standard BP Diastolic 70 mm[Hg] Comments: Patient Position: Sitting; Cuff Location: Left Arm; Cuff Size: Standard Weight 122.5 lb Height 64 in Body Mass Index Calculated 21.03 kg/m2 Body Surface Area Calculated 1.59 m2 :53 Temperature 97.8 f Comments: Method: Temporal Pulse 76 /min Comments: Pattern: Regular Respiration Rate 16 /min Comments: Pattern: Unlabored BP Systolic 122 mm[Hg] Comments: Patient Position: Sitting; Cuff Location: Left Arm; Cuff Size: Standard BP Diastolic 62 mm[Hg] Comments: Patient Position: Sitting; Cuff Location: Left Arm; Cuff Size: Standard Weight 122.5 lb Height 64 in Body Mass Index Calculated 21.03 kg/m2 Body Surface Area Calculated 1.59 m2 :13 Temperature 97.7 f Pulse 80 /min Comments: Pattern: Regular Respiration Rate 16 /min Comments: Pattern: Unlabored O2 SAT 98 % Comments: Room air BP Systolic 130 mm[Hg] Comments: Patient Position: Sitting; Cuff Location: Left Arm; Cuff Size: Standard BP Diastolic 82 mm[Hg] Comments: Patient Position: Sitting; Cuff Location: Left Arm; Cuff Size: Standard Weight 120.375 lb Height 64 in Body Mass Index Calculated 20.66 kg/m2 Body Surface Area Calculated 1.58 m2 :10 Temperature 97.4 f Comments: Method: Temporal Pulse 66 /min Comments: Pattern: Regular Respiration Rate 15 /min Comments: Pattern: Unlabored O2 SAT 99 % Comments: Room air BP Systolic 136 mm[Hg] Comments: Patient Position: Sitting; Cuff Location: Left Arm; Cuff Size: Standard BP Diastolic 78 mm[Hg] Comments: Patient Position: Sitting; Cuff Location: Left Arm; Cuff Size: Standard Weight 123 lb Height 64 in Body Mass Index Calculated 21.11 kg/m2 Body Surface Area Calculated 1.59 m2 :16 Temperature 96.4 f Comments: Method: Temporal Pulse 71 /min Comments: Pattern: Regular Respiration Rate 16 /min Comments: Pattern: Unlabored O2 SAT 98 % Comments: Room air BP Systolic 124 mm[Hg] Comments: Patient Position: Sitting; Cuff Location: Left Arm; Cuff Size: Standard BP Diastolic 64 mm[Hg] Comments: Patient Position: Sitting; Cuff Location: Left Arm; Cuff Size: Standard Weight 127 lb Height 64 in Body Mass Index Calculated 21.8 kg/m2 Body Surface Area Calculated 1.61 m2 :24 Temperature 97 f Comments: Method: Temporal Pulse 72 /min Comments: Pattern: Regular Respiration Rate 16 /min Comments: Pattern: Unlabored O2 SAT 98 % Comments: Room air BP Systolic 132 mm[Hg] Comments: Patient Position: Sitting; Cuff Location: Left Arm; Cuff Size: Standard BP Diastolic 78 mm[Hg] Comments: Patient Position: Sitting; Cuff Location: Left Arm; Cuff Size: Standard Weight 132 lb Height 64 in Body Mass Index Calculated 22.66 kg/m2 Body Surface Area Calculated 1.64 m2 :43 Temperature 97.3 f Comments: Method: Oral Pulse 73 /min Comments: Pattern: Regular Respiration Rate 16 /min Comments: Pattern: Unlabored O2 SAT 98 % Comments: Room air BP Systolic 142 mm[Hg] Comments: Patient Position: Sitting; Cuff Location: Left Arm; Cuff Size: Standard BP Diastolic 78 mm[Hg] Comments: Patient Position: Sitting; Cuff Location: Left Arm; Cuff Size: Standard Weight 133 lb Height 64 in Body Mass Index Calculated 22.83 kg/m2 Body Surface Area Calculated 1.64 m2 :09 Temperature 97.2 f Comments: Method: Temporal Pulse 76 /min Comments: Pattern: Regular Respiration Rate 15 /min Comments: Pattern: Unlabored O2 SAT 95 % Comments: Room air BP Systolic 138 mm[Hg] Comments: Patient Position: Sitting; Cuff Location: Left Arm; Cuff Size: Standard BP Diastolic 78 mm[Hg] Comments: Patient Position: Sitting; Cuff Location: Left Arm; Cuff Size: Standard Weight 139 lb Height 64 in Body Mass Index Calculated 23.86 kg/m2 Body Surface Area Calculated 1.68 m2 :33 Temperature 96.8 f Comments: Method: Temporal Pulse 76 /min Comments: Pattern: Regular Respiration Rate 15 /min Comments: Pattern: Unlabored O2 SAT 98 % Comments: Room air BP Systolic 152 mm[Hg] Comments: Patient Position: Sitting; Cuff Location: Left Arm; Cuff Size: Standard BP Diastolic 78 mm[Hg] Comments: Patient Position: Sitting; Cuff Location: Left Arm; Cuff Size: Standard Weight 141 lb Height 64 in Body Mass Index Calculated 24.2 kg/m2 Body Surface Area Calculated 1.69 m2 :07 Temperature 97 f Comments: Method: Temporal Pulse 68 /min Comments: Pattern: Regular Respiration Rate 15 /min Comments: Pattern: Unlabored O2 SAT 96 % Comments: Room air BP Systolic 154 mm[Hg] Comments: Patient Position: Sitting; Cuff Location: Left Arm; Cuff Size: Standard BP Diastolic 90 mm[Hg] Comments: Patient Position: Sitting; Cuff Location: Left Arm; Cuff Size: Standard Weight 141 lb Height 64 in Body Mass Index Calculated 24.2 kg/m2 Body Surface Area Calculated 1.69 m2 :57 Temperature 98 f Comments: Method: Temporal Pulse 68 /min Comments: Pattern: Regular Respiration Rate 15 /min Comments: Pattern: Unlabored O2 SAT 96 % Comments: Room air BP Systolic 112 mm[Hg] Comments: Patient Position: Sitting; Cuff Location: Left Arm; Cuff Size: Standard BP Diastolic 74 mm[Hg] Comments: Patient Position: Sitting; Cuff Location: Left Arm; Cuff Size: Standard Weight 140 lb Height 64 in Body Mass Index Calculated 24.03 kg/m2 Body Surface Area Calculated 1.68 m2 :57 BP Systolic 120 mm[Hg] Comments: Patient Position: Sitting BP Diastolic 84 mm[Hg] Comments: Patient Position: Sitting :58 Temperature 96.8 f Comments: Method: Oral Pulse 79 /min Comments: Pattern: Regular Respiration Rate 18 /min Comments: Pattern: Unlabored O2 SAT 97 % Comments: Room air BP Systolic 140 mm[Hg] Comments: Patient Position: Sitting; Cuff Location: Left Arm; Cuff Size: Standard BP Diastolic 98 mm[Hg] Comments: Patient Position: Sitting; Cuff Location: Left Arm; Cuff Size: Standard Weight 135 lb Height 64 in Body Mass Index Calculated 23.17 kg/m2 Body Surface Area Calculated 1.66 m2 :40 Temperature 97.6 f Comments: Method: Oral Pulse 67 /min Comments: Pattern: Regular Respiration Rate 16 /min Comments: Pattern: Unlabored BP Systolic 112 mm[Hg] Comments: Patient Position: Sitting; Cuff Location: Left Arm; Cuff Size: Standard BP Diastolic 80 mm[Hg] Comments: Patient Position: Sitting; Cuff Location: Left Arm; Cuff Size: Standard Weight 135 lb Height 64 in Body Mass Index Calculated 23.17 kg/m2 Body Surface Area Calculated 1.66 m2 :53 Temperature 98.2 f Pulse 72 /min Comments: Pattern: Regular Respiration Rate 16 /min Comments: Pattern: Unlabored BP Systolic 120 mm[Hg] Comments: Patient Position: Sitting; Cuff Location: Left Arm; Cuff Size: Standard BP Diastolic 86 mm[Hg] Comments: Patient Position: Sitting; Cuff Location: Left Arm; Cuff Size: Standard Weight 134 lb Height 64 in Body Mass Index Calculated 23 kg/m2 Body Surface Area Calculated 1.65 m2 :52 Temperature 96.9 f Pulse 68 /min Comments: Pattern: Regular Respiration Rate 16 /min Comments: Pattern: Unlabored BP Systolic 124 mm[Hg] Comments: Patient Position: Sitting; Cuff Location: Left Arm; Cuff Size: Standard BP Diastolic 70 mm[Hg] Comments: Patient Position: Sitting; Cuff Location: Left Arm; Cuff Size: Standard Weight 135 lb Height 64 in Body Mass Index Calculated 23.17 kg/m2 Body Surface Area Calculated 1.66 m2 :23 Temperature 98.2 f Pulse 78 /min Comments: Pattern: Regular Respiration Rate 16 /min Comments: Pattern: Unlabored BP Systolic 112 mm[Hg] Comments: Patient Position: Sitting; Cuff Location: Left Arm; Cuff Size: Standard BP Diastolic 80 mm[Hg] Comments: Patient Position: Sitting; Cuff Location: Left Arm; Cuff Size: Standard Weight 142 lb Height 64 in Body Mass Index Calculated 24.37 kg/m2 Body Surface Area Calculated 1.69 m2 :07 Temperature 97.8 f Pulse 72 /min Comments: Pattern: Regular Respiration Rate 16 /min Comments: Pattern: Unlabored BP Systolic 128 mm[Hg] Comments: Patient Position: Sitting; Cuff Location: Left Arm; Cuff Size: Standard BP Diastolic 72 mm[Hg] Comments: Patient Position: Sitting; Cuff Location: Left Arm; Cuff Size: Standard Weight 144 lb Height 64 in Body Mass Index Calculated 24.72 kg/m2 Body Surface Area Calculated 1.7 m2 :41 Temperature 97.6 f Comments: Method: Temporal Pulse 92 /min Comments: Pattern: Regular Respiration Rate 16 /min Comments: Pattern: Unlabored O2 SAT 97 % Comments: Room air BP Systolic 122 mm[Hg] Comments: Patient Position: Sitting; Cuff Location: Left Arm; Cuff Size: Standard BP Diastolic 74 mm[Hg] Comments: Patient Position: Sitting; Cuff Location: Left Arm; Cuff Size: Standard Weight 147 lb Height 64 in Body Mass Index Calculated 25.23 kg/m2 Body Surface Area Calculated 1.72 m2 :31 Temperature 97.1 f Pulse 72 /min Comments: Pattern: Regular Respiration Rate 16 /min Comments: Pattern: Unlabored BP Systolic 136 mm[Hg] Comments: Patient Position: Sitting; Cuff Location: Left Arm; Cuff Size: Standard BP Diastolic 88 mm[Hg] Comments: Patient Position: Sitting; Cuff Location: Left Arm; Cuff Size: Standard Weight 149 lb Height 64 in Body Mass Index Calculated 25.58 kg/m2 Body Surface Area Calculated 1.73 m2 :51 Temperature 98.1 f Pulse 68 /min Comments: Pattern: Regular Respiration Rate 16 /min Comments: Pattern: Unlabored BP Systolic 122 mm[Hg] Comments: Patient Position: Sitting; Cuff Location: Left Arm; Cuff Size: Large BP Diastolic 78 mm[Hg] Comments: Patient Position: Sitting; Cuff Location: Left Arm; Cuff Size: Large Weight 149 lb Height 64 in Body Mass Index Calculated 25.58 kg/m2 Body Surface Area Calculated 1.73 m2 :46 Temperature 98.1 f Pulse 74 /min Comments: Pattern: Regular Respiration Rate 16 /min Comments: Pattern: Unlabored BP Systolic 102 mm[Hg] Comments: Patient Position: Sitting; Cuff Location: Left Arm; Cuff Size: Standard BP Diastolic 70 mm[Hg] Comments: Patient Position: Sitting; Cuff Location: Left Arm; Cuff Size: Standard Weight 144 lb Height 64 in Body Mass Index Calculated 24.72 kg/m2 Body Surface Area Calculated 1.7 m2 :55 Temperature 97.6 f Pulse 72 /min Comments: Pattern: Regular Respiration Rate 16 /min Comments: Pattern: Unlabored BP Systolic 104 mm[Hg] Comments: Patient Position: Sitting; Cuff Location: Left Arm; Cuff Size: Standard BP Diastolic 72 mm[Hg] Comments: Patient Position: Sitting; Cuff Location: Left Arm; Cuff Size: Standard Weight 148 lb Height 64 in Body Mass Index Calculated 25.4 kg/m2 Body Surface Area Calculated 1.72 m2 :08 Temperature 97.7 f Pulse 72 /min Comments: Pattern: Regular Respiration Rate 16 /min Comments: Pattern: Unlabored BP Systolic 128 mm[Hg] Comments: Patient Position: Sitting; Cuff Location: Left Arm; Cuff Size: Standard BP Diastolic 80 mm[Hg] Comments: Patient Position: Sitting; Cuff Location: Left Arm; Cuff Size: Standard Weight 149 lb Height 64 in Body Mass Index Calculated 25.58 kg/m2 Body Surface Area Calculated 1.73 m2 :02 Temperature 96.6 f Pulse 72 /min Comments: Pattern: Regular Respiration Rate 16 /min Comments: Pattern: Unlabored BP Systolic 118 mm[Hg] Comments: Patient Position: Sitting; Cuff Location: Left Arm; Cuff Size: Large BP Diastolic 82 mm[Hg] Comments: Patient Position: Sitting; Cuff Location: Left Arm; Cuff Size: Large Weight 148 lb Height 64 in Body Mass Index Calculated 25.4 kg/m2 Body Surface Area Calculated 1.72 m2 :08 Temperature 96.9 f Pulse 76 /min Comments: Pattern: Regular Respiration Rate 16 /min Comments: Pattern: Unlabored BP Systolic 138 mm[Hg] Comments: Patient Position: Sitting; Cuff Location: Left Arm; Cuff Size: Large BP Diastolic 86 mm[Hg] Comments: Patient Position: Sitting; Cuff Location: Left Arm; Cuff Size: Large Weight 147 lb Height 64 in Body Mass Index Calculated 25.23 kg/m2 Body Surface Area Calculated 1.72 m2 :07 Temperature 97.5 f Pulse 72 /min Comments: Pattern: Regular Respiration Rate 16 /min Comments: Pattern: Unlabored BP Systolic 124 mm[Hg] Comments: Patient Position: Sitting; Cuff Location: Left Arm; Cuff Size: Large BP Diastolic 82 mm[Hg] Comments: Patient Position: Sitting; Cuff Location: Left Arm; Cuff Size: Large Weight 151 lb Height 64 in Body Mass Index Calculated 25.92 kg/m2 Body Surface Area Calculated 1.74 m2 :22 Temperature 97.6 f Comments: Method: Oral Pulse 68 /min Comments: Pattern: Regular Respiration Rate 16 /min Comments: Pattern: Unlabored BP Systolic 122 mm[Hg] Comments: Patient Position: Sitting; Cuff Location: Left Arm; Cuff Size: Large BP Diastolic 82 mm[Hg] Comments: Patient Position: Sitting; Cuff Location: Left Arm; Cuff Size: Large Weight 150 lb Height 64 in Body Mass Index Calculated 25.75 kg/m2 Body Surface Area Calculated 1.73 m2 :33 Temperature 97.7 f Pulse 76 /min Comments: Pattern: Regular Respiration Rate 16 /min Comments: Pattern: Unlabored BP Systolic 122 mm[Hg] Comments: Patient Position: Sitting; Cuff Location: Left Arm; Cuff Size: Large BP Diastolic 82 mm[Hg] Comments: Patient Position: Sitting; Cuff Location: Left Arm; Cuff Size: Large Weight 147 lb Height 64 in Body Mass Index Calculated 25.23 kg/m2 Body Surface Area Calculated 1.72 m2 :44 Temperature 97.6 f Pulse 92 /min Comments: Pattern: Regular Respiration Rate 18 /min Comments: Pattern: Unlabored BP Systolic 112 mm[Hg] Comments: Patient Position: Sitting; Cuff Location: Left Arm; Cuff Size: Large BP Diastolic 62 mm[Hg] Comments: Patient Position: Sitting; Cuff Location: Left Arm; Cuff Size: Large Weight 147 lb Height 64 in Body Mass Index Calculated 25.23 kg/m2 Body Surface Area Calculated 1.72 m2 :04 Comments: 117/72 this am Temperature 97.9 f Comments: Method: Oral Pulse 76 /min Comments: Pattern: Regular Respiration Rate 16 /min Comments: Pattern: Unlabored BP Systolic 112 mm[Hg] Comments: Patient Position: Sitting; Cuff Location: Left Arm; Cuff Size: Standard BP Diastolic 76 mm[Hg] Comments: Patient Position: Sitting; Cuff Location: Left Arm; Cuff Size: Standard Weight 144.8 lb Height 64 in Body Mass Index Calculated 24.85 kg/m2 Body Surface Area Calculated 1.71 m2 :16 Temperature 97.4 f Comments: Method: Oral Pulse 70 /min Comments: Pattern: Regular Respiration Rate 16 /min Comments: Pattern: Unlabored O2 SAT 95 % Comments: Room air BP Systolic 138 mm[Hg] Comments: Patient Position: Sitting; Cuff Location: Left Arm; Cuff Size: Standard BP Diastolic 86 mm[Hg] Comments: Patient Position: Sitting; Cuff Location: Left Arm; Cuff Size: Standard Weight 145.5625 lb Height 64 in Body Mass Index Calculated 24.99 kg/m2 Body Surface Area Calculated 1.71 m2 :25 Temperature 97.3 f Pulse 72 /min Comments: Pattern: Regular Respiration Rate 16 /min Comments: Pattern: Unlabored BP Systolic 134 mm[Hg] Comments: Patient Position: Sitting; Cuff Location: Left Arm; Cuff Size: Large BP Diastolic 74 mm[Hg] Comments: Patient Position: Sitting; Cuff Location: Left Arm; Cuff Size: Large Weight 144 lb Height 64.5 in Body Mass Index Calculated 24.34 kg/m2 Body Surface Area Calculated 1.71 m2 :23 Temperature 98 f Pulse 68 /min Comments: Pattern: Regular Respiration Rate 18 /min Comments: Pattern: Unlabored BP Systolic 126 mm[Hg] Comments: Patient Position: Sitting; Cuff Location: Left Arm; Cuff Size: Standard BP Diastolic 74 mm[Hg] Comments: Patient Position: Sitting; Cuff Location: Left Arm; Cuff Size: Standard Weight 150 lb :08 Pulse 78 /min Comments: Pattern: Regular Respiration Rate 18 /min Comments: Pattern: Unlabored BP Systolic 112 mm[Hg] Comments: Patient Position: Sitting; Cuff Location: Left Arm; Cuff Size: Standard BP Diastolic 74 mm[Hg] Comments: Patient Position: Sitting; Cuff Location: Left Arm; Cuff Size: Standard :18 Temperature 98.3 f Pulse 80 /min Comments: Pattern: Regular Respiration Rate 18 /min Comments: Pattern: Unlabored BP Systolic 126 mm[Hg] Comments: Patient Position: Sitting; Cuff Location: Left Arm; Cuff Size: Standard BP Diastolic 76 mm[Hg] Comments: Patient Position: Sitting; Cuff Location: Left Arm; Cuff Size: Standard Weight 144 lb :01 Temperature 97.9 f Comments: Method: Undefined Pulse 76 /min Comments: Pattern: Regular Respiration Rate 16 /min Comments: Pattern: Undefined BP Systolic 136 mm[Hg] Comments: Patient Position: Sitting; Cuff Location: Left Arm; Cuff Size: Standard BP Diastolic 74 mm[Hg] Comments: Patient Position: Sitting; Cuff Location: Left Arm; Cuff Size: Standard Weight 145 lb Height 0 in Head Circumference 0.00 cm :39 Temperature 97.6 f Comments: Method: Undefined Pulse 80 /min Comments: Pattern: Regular Respiration Rate 18 /min Comments: Pattern: Undefined BP Systolic 110 mm[Hg] Comments: Patient Position: Sitting; Cuff Location: Left Arm; Cuff Size: Large BP Diastolic 70 mm[Hg] Comments: Patient Position: Sitting; Cuff Location: Left Arm; Cuff Size: Large Weight 0 lb Height 0 in Head Circumference 0.00 cm :09 Temperature 98.2 f Comments: Method: Undefined Pulse 68 /min Comments: Pattern: Regular Respiration Rate 16 /min Comments: Pattern: Undefined BP Systolic 134 mm[Hg] Comments: Patient Position: Sitting; Cuff Location: Left Arm; Cuff Size: Large BP Diastolic 86 mm[Hg] Comments: Patient Position: Sitting; Cuff Location: Left Arm; Cuff Size: Large Weight 142 lb Height 64 in Body Mass Index Calculated 24.37 kg/m2 Body Surface Area Calculated 1.69 m2 Head Circumference 0.00 cm :48 Temperature 97.3 f Comments: Method: Undefined Pulse 72 /min Comments: Pattern: Regular Respiration Rate 16 /min Comments: Pattern: Undefined BP Systolic 118 mm[Hg] Comments: Patient Position: Sitting; Cuff Location: Left Arm; Cuff Size: Large BP Diastolic 80 mm[Hg] Comments: Patient Position: Sitting; Cuff Location: Left Arm; Cuff Size: Large Weight 140 lb Height 0 in Head Circumference 0.00 cm :30 Temperature 98.2 f Comments: Method: Undefined Pulse 68 /min Comments: Pattern: Regular Respiration Rate 16 /min Comments: Pattern: Undefined BP Systolic 132 mm[Hg] Comments: Patient Position: Sitting; Cuff Location: Right Arm; Cuff Size: Standard BP Diastolic 80 mm[Hg] Comments: Patient Position: Sitting; Cuff Location: Right Arm; Cuff Size: Standard Weight 140 lb Height 0 in Head Circumference 0.00 cm :28 Pulse 74 /min Comments: Pattern: Regular Respiration Rate 18 /min Comments: Pattern: Unlabored BP Systolic 138 mm[Hg] Comments: Patient Position: Sitting; Cuff Location: Left Arm; Cuff Size: Large BP Diastolic 80 mm[Hg] Comments: Patient Position: Sitting; Cuff Location: Left Arm; Cuff Size: Large Weight 145 lb Height 0 in Head Circumference 0.00 cm :39 Temperature 98.6 f Comments: Method: Oral Pulse 68 /min Comments: Pattern: Regular Respiration Rate 16 /min Comments: Pattern: Unlabored BP Systolic 106 mm[Hg] Comments: Patient Position: Sitting; Cuff Location: Right Arm; Cuff Size: Standard BP Diastolic 68 mm[Hg] Comments: Patient Position: Sitting; Cuff Location: Right Arm; Cuff Size: Standard Weight 145 lb Height 0 in Head Circumference 0.00 cm :39 Pulse 60 /min Comments: Pattern: Regular Respiration Rate 16 /min Comments: Pattern: Unlabored BP Systolic 122 mm[Hg] Comments: Patient Position: Sitting; Cuff Location: Left Arm; Cuff Size: Standard BP Diastolic 70 mm[Hg] Comments: Patient Position: Sitting; Cuff Location: Left Arm; Cuff Size: Standard Weight 144.1875 lb Height 63 in Body Mass Index Calculated 25.54 kg/m2 Body Surface Area Calculated 1.68 m2 Head Circumference 0.00 cm :42 Temperature 98.4 f Comments: Method: Oral Pulse 68 /min Comments: Pattern: Regular Respiration Rate 16 /min Comments: Pattern: Unlabored BP Systolic 130 mm[Hg] Comments: Patient Position: Sitting; Cuff Location: Left Arm; Cuff Size: Large BP Diastolic 66 mm[Hg] Comments: Patient Position: Sitting; Cuff Location: Left Arm; Cuff Size: Large Weight 144 lb Height 0 in Head Circumference 0.00 cm :29 Weight 0 lb Height 64 in Head Circumference 0.00 cm :06 Pulse 80 /min Comments: Pattern: Regular Respiration Rate 16 /min Comments: Pattern: Unlabored BP Systolic 124 mm[Hg] Comments: Patient Position: Sitting; Cuff Location: Left Arm; Cuff Size: Standard BP Diastolic 66 mm[Hg] Comments: Patient Position: Sitting; Cuff Location: Left Arm; Cuff Size: Standard Weight 144.4375 lb Height 64 in Body Mass Index Calculated 24.79 kg/m2 Body Surface Area Calculated 1.7 m2 Head Circumference 0.00 cm :59 Pulse 60 /min Comments: Pattern: Regular Respiration Rate 16 /min Comments: Pattern: Unlabored BP Systolic 124 mm[Hg] Comments: Patient Position: Sitting; Cuff Location: Left Arm; Cuff Size: Standard BP Diastolic 68 mm[Hg] Comments: Patient Position: Sitting; Cuff Location: Left Arm; Cuff Size: Standard Weight 144.4375 lb Height 64 in Body Mass Index Calculated 24.79 kg/m2 Body Surface Area Calculated 1.7 m2 Head Circumference 0.00 cm Results Date Description Value Details 07-Obw-902152:25 HGB A1C (07432) Comments: PATIENT WAS FASTINGPERFORMED BY: [employer] [facility] [id number] Hemoglobin A1c 5.3 % (Normal) Range: 4.8-5.6 Comments: . Pre-diabetes: 5.7 - 6.4 Diabetes: >6.4 Glycemic control for adults with diabetes: <7.0 18-Tbs-220520:25 MICROALBUMIN: CREATININE RATIO Comments: PATIENT WAS FASTINGPERFORMED BY: Biopharmacopae Wsvpoj1587 [facility] [id number] (02020) AND (10766) Alb/Creat Ratio <19.6 {mg/g_creat} (Normal) Range: 0.0-30.0 Albumin, Urine <3.0 ug/mL (Normal) Creatinine, Urine 15.3 mg/dL (Normal) 41-Ugo-236338:25 LIPID PANEL (44373) Comments: PATIENT WAS FASTINGPERFORMED BY: Biopharmac[employer]ae Sbzijr1273 [facility] [id number] LDL/HDL Ratio 2.6 {ratio} (Normal) Range: 0.0-3.2 Comments: LDL/HDL Ratio Men Women 1/2 Avg.Risk 1.0 1.5 Av g.Risk 3.6 3.2 2X Avg.Risk 6.2 5.0 3X Avg.Risk 8.0 6.1 LDL Cholesterol Calc 138 mg/dL (Abnormal) Range: 0-99 VLDL Cholesterol Celso 15 mg/dL (Normal) Range: 5-40 HDL Cholesterol 53 mg/dL (Normal) Triglycerides 76 mg/dL (Normal) Range: 0-149 Cholesterol, Total 206 mg/dL (Abnormal) Range: 100-199 41-Awg-627385:25 CBC & PLATELETS (AUTO) Comments: PATIENT WAS FASTINGPERFORMED BY: ThucyAnn [facility] Forensic CenterAjijel6316 [facility] [id number] (50228) Platelets 166 {x10E3/uL} (Normal) Range: 150-379 RDW 12.3 % (Normal) Range: 12.3-15.4 MCHC 34.1 g/dL (Normal) Range: 31.5-35.7 MCH 29.9 pg (Normal) Range: 26.6-33.0 MCV 88 fL (Normal) Range: 79-97 Hematocrit 45.4 % (Normal) Range: 34.0-46.6 Hemoglobin 15.5 g/dL (Normal) Range: 11.1-15.9 RBC 5.19 {x10E6/uL} (Normal) Range: 3.77-5.28 WBC 3.9 {x10E3/uL} (Normal) Range: 3.4-10.8 09-Kbw-659193:25 METABOLIC PANEL, COMPREHENSIVE Comments: PATIENT WAS FASTINGPERFORMED BY: ThucyAnn [facility] Forensic CenterCdgyzt2744 [facility] [id number] (22523) ALT (SGPT) 21 [iU]/L (Normal) Range: 0-32 AST (SGOT) 23 [iU]/L (Normal) Range: 0-40 Alkaline Phosphatase 81 [iU]/L (Normal) Range: 39-117 Bilirubin, Total 0.6 mg/dL (Normal) Range: 0.0-1.2 A/G Ratio 2.1 (Normal) Range: 1.2-2.2 Globulin, Total 2.3 g/dL (Normal) Range: 1.5-4.5 Albumin 4.9 g/dL (Abnormal) Range: 3.5-4.8 Protein, Total 7.2 g/dL (Normal) Range: 6.0-8.5 Calcium 9.8 mg/dL (Normal) Range: 8.7-10.3 Carbon Dioxide, Total 25 mmol/L (Normal) Range: 20-29 Chloride 104 mmol/L (Normal) Range: 96-106 Potassium 4.7 mmol/L (Normal) Range: 3.5-5.2 Sodium 145 mmol/L (Abnormal) Range: 134-144 BUN/Creatinine Ratio 20 (Normal) Range: 12-28 eGFR If Africn Am 84 mL/min/1.73 (Normal) eGFR If NonAfricn Am 72 mL/min/1.73 (Normal) Creatinine 0.79 mg/dL (Normal) Range: 0.57-1.00 BUN 16 mg/dL (Normal) Range: 8-27 Glucose 82 mg/dL (Normal) Range: 65-99 68-Ipq-470009:14 CBC W/AUTO DIFF WBC Comments: PATIENT NOT FASTINGPERFORMED BY: LabCoAnn Klein Forensic CenterKmoklq9264 [facility] [id number] Information: NURSE DRAW (98793) Immature Grans (Abs) 0.0 {x10E3/uL} (Normal) Range: 0.0-0.1 Immature Granulocytes 0 % (Normal) Baso (Absolute) 0.0 {x10E3/uL} (Normal) Range: 0.0-0.2 Eos (Absolute) 0.1 {x10E3/uL} (Normal) Range: 0.0-0.4 Monocytes(Absolute) 0.4 {x10E3/uL} (Normal) Range: 0.1-0.9 Lymphs (Absolute) 1.7 {x10E3/uL} (Normal) Range: 0.7-3.1 Neutrophils (Absolute) 3.9 {x10E3/uL} (Normal) Range: 1.4-7.0 Basos 1 % (Normal) Eos 2 % (Normal) Monocytes 6 % (Normal) Lymphs 28 % (Normal) Neutrophils 63 % (Normal) Platelets 168 {x10E3/uL} (Normal) Range: 150-379 RDW 13.4 % (Normal) Range: 12.3-15.4 MCHC 33.1 g/dL (Normal) Range: 31.5-35.7 MCH 29.7 pg (Normal) Range: 26.6-33.0 MCV 90 fL (Normal) Range: 79-97 Hematocrit 43.5 % (Normal) Range: 34.0-46.6 Hemoglobin 14.4 g/dL (Normal) Range: 11.1-15.9 RBC 4.85 {x10E6/uL} (Normal) Range: 3.77-5.28 WBC 6.1 {x10E3/uL} (Normal) Range: 3.4-10.8 11-Cfu-318254:14 METABOLIC PANEL, COMPREHENSIVE Comments: PATIENT NOT FASTINGPERFORMED BY: LabCoAnn Klein Forensic CenterGklffr7567 [facility] [id number]; review 12/03 (59517) ALT (SGPT) 25 [iU]/L (Normal) Range: 0-32 AST (SGOT) 26 [iU]/L (Normal) Range: 0-40 Alkaline Phosphatase 80 [iU]/L (Normal) Range: 39-117 Bilirubin, Total 0.5 mg/dL (Normal) Range: 0.0-1.2 A/G Ratio 2.3 (Abnormal) Range: 1.2-2.2 Globulin, Total 2.1 g/dL (Normal) Range: 1.5-4.5 Albumin 4.8 g/dL (Normal) Range: 3.5-4.8 Protein, Total 6.9 g/dL (Normal) Range: 6.0-8.5 Calcium 9.4 mg/dL (Normal) Range: 8.7-10.3 Carbon Dioxide, Total 25 mmol/L (Normal) Range: 18-29 Chloride 105 mmol/L (Normal) Range: 96-106 Potassium 4.7 mmol/L (Normal) Range: 3.5-5.2 Sodium 145 mmol/L (Abnormal) Range: 134-144 BUN/Creatinine Ratio 26 (Normal) Range: 12-28 eGFR If Africn Am 82 mL/min/1.73 (Normal) eGFR If NonAfricn Am 71 mL/min/1.73 (Normal) Creatinine 0.81 mg/dL (Normal) Range: 0.57-1.00 BUN 21 mg/dL (Normal) Range: 8-27 Glucose 81 mg/dL (Normal) Range: 65-99 77-Hoe-692521:42 TSH (08568) Comments: PATIENT NOT FASTINGPERFORMED BY: [facility]6370 [facility] [id number] TSH 3.330 {uIU/mL} (Normal) Range: 0.450-4.500 66-Fef-907633:42 SED RATE ERYTHROCYTE (67992) Comments: PATIENT NOT FASTINGPERFORMED BY: [address] [id number] Sedimentation Rate-Westergren 4 mm/h (Normal) Range: 0-40 27-Svm-603324:42 C-REACTIVE PROTEIN (59203) Comments: PATIENT NOT FASTINGPERFORMED BY: [address] [id number] C-Reactive Protein, Quant <0.3 mg/L (Normal) Range: 0.0-4.9 57-Ayl-213449:42 HEPATITIS C ANTIBODY (22357) Comments: PATIENT NOT FASTINGPERFORMED BY: [address] [id number] Hep C Virus Ab <0.1 {s/co_ratio} (Normal) Range: 0.0-0.9 Comments: Negative: < 0.8 Indeterminate: 0.8 - 0.9 Positive: > 0.9 . The CDC recommends that a positive HCV antibody result be followed up with a HCV Nucleic Acid Amplification test (114366). 17-Cor-636205:42 AQQZE-[id number]-GZMMY (75249) Comments: PATIENT NOT FASTINGPERFORMED BY: [facility]6370 [facility] [id number] AFP, Serum, Tumor Marker 1.9 ng/mL (Normal) Range: 0.0-8.3 Comments: Jona ECLIA methodology 18-Zcc-321375:47 LIPOPROTEIN, BLD, BY NMR Comments: PATIENT WAS FASTINGPERFORMED BY: [place] 023757 [facility] [id number] BY: [address] [id number]; can review on 08/20 (87974) LP-IR Score 71 (Abnormal) Comments: INSULIN RESISTANCE MARKER <--Insulin Sensitive Insulin Resistant--> Percentile in Reference PopulationInsulin Resistance ScoreLP-IR Score Low 25th 50th 75th High <27 27 45 63 >63LP-IR Score is inaccurate if patient is non-fasting. .The LP-IR score is a laboratory developed i [facility] that has beenassociated with insulin resistance and diabetes risk and should beused as one component of a physician's clinical assessment. TheLP-IR score listed above has not been cleared by the US Food andDrug Administration. LDL Size 20.3 nm (Normal) Comments: INTERPRETATIVE INFORMATION PARTICLE CONCENTRATION AND SIZE <--Lower CVD Risk Highe r CVD Risk--> LDL AND HDL PARTICLES Percentile in Reference Population HDL-P (total) High 75th 50th 25th Low >34.9 34.9 30.5 26.7 <26.7 . Small LDL-P Low 25th 50th 75th High <117 117 527 839 >839 . LDL Size <-Large (Pattern A)-> <-Small (Pattern B)-> 23.0 20.6 20.5 19.0 Small LDL-P and LDL Size are associated with CVD risk, but not afterLDL-P is taken into account. .These assays were developed and their performance characteristicsdetermined by [employer]. These assays have not been cleared by [place] Food and Drug Administration. The clinical utility of theselaboratory values have not been fully established. Small LDL-P 1038 nmol/L (Abnormal) HDL-P (Total) 33.9 umol/L (Normal) Cholesterol, Total 184 mg/dL (Normal) Range: 100-199 Triglycerides 68 mg/dL (Normal) Range: 0-149 HDL-C 45 mg/dL (Normal) LDL-C 125 mg/dL (Abnormal) Range: 0-99 Comments: . Optimal < 100 Above optimal 100 - 129 Borderline 1 30 - 159 High 160 - 189 Very high > 189 .LDL-C is inaccurate if patient is non-fasting. LDL-P 1887 nmol/L (Abnormal) Comments: Low < 1000 Moderate 1000 - 1299 Borderline-High 1300 - 1599 High 1600 - 2000 Very High > 2000 29-Dex-011935:47 MICROALBUMIN: CREATININE Comments: PATIENT WAS FASTINGPERFORMED BY: [employer] [address] [id number] BY: [employer]ae Pbmntn7545 [facility] [id number] RATIO (17924) AND (60764) Alb/Creat Ratio <12.7 {mg/g_creat} (Normal) Range: 0.0-30.0 Albumin, Urine <3.0 ug/mL (Normal) Creatinine, Urine 23.6 mg/dL (Normal) 60-Ith-160864:47 CBC with auto diff Comments: PATIENT WAS FASTINGPERFORMED BY: BeInSyncton1447 [facility] [id number] BY: theRightAPI70 [facility] [id number] (00081) Immature Grans (Abs) 0.0 {x10E3/uL} (Normal) Range: 0.0-0.1 Immature Granulocytes 0 % (Normal) Baso (Absolute) 0.0 {x10E3/uL} (Normal) Range: 0.0-0.2 Eos (Absolute) 0.1 {x10E3/uL} (Normal) Range: 0.0-0.4 Monocytes(Absolute) 0.3 {x10E3/uL} (Normal) Range: 0.1-0.9 Lymphs (Absolute) 1.4 {x10E3/uL} (Normal) Range: 0.7-3.1 Neutrophils (Absolute) 1.8 {x10E3/uL} (Normal) Range: 1.4-7.0 Basos 1 % (Normal) Eos 3 % (Normal) Monocytes 8 % (Normal) Lymphs 39 % (Normal) Neutrophils 49 % (Normal) Platelets 166 {x10E3/uL} (Normal) Range: 150-379 RDW 13.0 % (Normal) Range: 12.3-15.4 MCHC 31.9 g/dL (Normal) Range: 31.5-35.7 MCH 28.6 pg (Normal) Range: 26.6-33.0 MCV 90 fL (Normal) Range: 79-97 Hematocrit 45.5 % (Normal) Range: 34.0-46.6 Hemoglobin 14.5 g/dL (Normal) Range: 11.1-15.9 RBC 5.07 {x10E6/uL} (Normal) Range: 3.77-5.28 WBC 3.6 {x10E3/uL} (Normal) Range: 3.4-10.8 51-Jpp-473303:47 METABOLIC PANEL, Comments: PATIENT WAS FASTINGPERFORMED BY: BN [facility] [address] [id number] BY: CB [facility] Mtdslh0237 [facility] [id number] [facility] (56170) ALT (SGPT) 24 [iU]/L (Normal) Range: 0-32 AST (SGOT) 26 [iU]/L (Normal) Range: 0-40 Alkaline Phosphatase, S 82 [iU]/L (Normal) Range: 39-117 Bilirubin, Total 0.4 mg/dL (Normal) Range: 0.0-1.2 A/G Ratio 2.2 (Normal) Range: 1.2-2.2 Globulin, Total 2.1 g/dL (Normal) Range: 1.5-4.5 Albumin, Serum 4.7 g/dL (Normal) Range: 3.5-4.8 Protein, Total, Serum 6.8 g/dL (Normal) Range: 6.0-8.5 Calcium, Serum 9.2 mg/dL (Normal) Range: 8.7-10.3 Carbon Dioxide, Total 28 mmol/L (Normal) Range: 18-29 Chloride, Serum 104 mmol/L (Normal) Range: 96-106 Potassium, Serum 4.2 mmol/L (Normal) Range: 3.5-5.2 Sodium, Serum 144 mmol/L (Normal) Range: 134-144 BUN/Creatinine Ratio 26 (Normal) Range: 12-28 eGFR If Africn Am 82 mL/min/1.73 (Normal) eGFR If NonAfricn Am 71 mL/min/1.73 (Normal) Creatinine, Serum 0.81 mg/dL (Normal) Range: 0.57-1.00 BUN 21 mg/dL (Normal) Range: 8-27 Glucose, Serum 80 mg/dL (Normal) Range: 65-99 70-Jtf-432323:47 HGB A1C (39542) Comments: PATIENT WAS FASTINGPERFORMED BY: Lab[address] [id number] BY: LabCoAnn Klein Forensic CenterCmrbue9891 [facility] [id number] Hemoglobin A1c 5.4 % (Normal) Range: 4.8-5.6 Comments: . Pre-diabetes: 5.7 - 6.4 Diabetes: >6.4 Glycemic control for adults with diabetes: <7.0 01-May-20178:49 CBC with auto diff Comments: PATIENT WAS FASTINGPERFORMED BY: LabTeraViewJennifer [place] 3252070 [facility] [id number] Information: [id number], 746540 (29623) Immature Grans (Abs) 0.0 {x10E3/uL} (Normal) Range: 0.0-0.1 Immature Granulocytes 0 % (Normal) Baso (Absolute) 0.0 {x10E3/uL} (Normal) Range: 0.0-0.2 Eos (Absolute) 0.1 {x10E3/uL} (Normal) Range: 0.0-0.4 Monocytes(Absolute) 0.2 {x10E3/uL} (Normal) Range: 0.1-0.9 Lymphs (Absolute) 1.4 {x10E3/uL} (Normal) Range: 0.7-3.1 Neutrophils (Absolute) 1.7 {x10E3/uL} (Normal) Range: 1.4-7.0 Basos 1 % (Normal) Eos 4 % (Normal) Monocytes 6 % (Normal) Lymphs 40 % (Normal) Neutrophils 49 % (Normal) Platelets 161 {x10E3/uL} (Normal) Range: 150-379 RDW 13.5 % (Normal) Range: 12.3-15.4 MCHC 32.7 g/dL (Normal) Range: 31.5-35.7 MCH 29.5 pg (Normal) Range: 26.6-33.0 MCV 90 fL (Normal) Range: 79-97 Hematocrit 44.3 % (Normal) Range: 34.0-46.6 Hemoglobin 14.5 g/dL (Normal) Range: 11.1-15.9 RBC 4.92 {x10E6/uL} (Normal) Range: 3.77-5.28 WBC 3.5 {x10E3/uL} (Normal) Range: 3.4-10.8 01-May-20178:49 METABOLIC PANEL, COMPREHENSIVE Comments: PATIENT WAS FASTINGPERFORMED BY: LabCoAnn Klein Forensic CenterRkrfgz7774 [facility] [id number] (10519) ALT (SGPT) 29 [iU]/L (Normal) Range: 0-32 AST (SGOT) 29 [iU]/L (Normal) Range: 0-40 Alkaline Phosphatase, S 82 [iU]/L (Normal) Range: 39-117 Bilirubin, Total 0.4 mg/dL (Normal) Range: 0.0-1.2 A/G Ratio 2.0 (Normal) Range: 1.2-2.2 Globulin, Total 2.3 g/dL (Normal) Range: 1.5-4.5 Albumin, Serum 4.6 g/dL (Normal) Range: 3.5-4.8 Protein, Total, Serum 6.9 g/dL (Normal) Range: 6.0-8.5 Calcium, Serum 9.5 mg/dL (Normal) Range: 8.7-10.3 Carbon Dioxide, Total 25 mmol/L (Normal) Range: 18-29 Chloride, Serum 105 mmol/L (Normal) Range: 96-106 Potassium, Serum 4.7 mmol/L (Normal) Range: 3.5-5.2 Sodium, Serum 145 mmol/L (Abnormal) Range: 134-144 BUN/Creatinine Ratio 22 (Normal) Range: 12-28 eGFR If Africn Am 84 mL/min/1.73 (Normal) eGFR If NonAfricn Am 73 mL/min/1.73 (Normal) Creatinine, Serum 0.79 mg/dL (Normal) Range: 0.57-1.00 BUN 17 mg/dL (Normal) Range: 8-27 Glucose, Serum 89 mg/dL (Normal) Range: 65-99 :49 HGB A1C (24444) Comments: PATIENT WAS FASTINGPERFORMED BY: [facility]Straith [facility] Surgery6370 [facility] [id number] Hemoglobin A1c 5.5 % (Normal) Range: 4.8-5.6 Comments: . Pre-diabetes: 5.7 - 6.4 Diabetes: >6.4 Glycemic control for adults with diabetes: <7.0 :49 LIPID PANEL (32344) Comments: PATIENT WAS FASTINGPERFORMED BY: LabCoJennifer [place] 3252070 [facility] [id number]; review at 05/14 appt LDL/HDL Ratio 2.1 {ratio_units} (Normal) Range: 0.0-3.2 Comments: LDL/HDL Ratio Men Women 1/2 Avg.Risk 1.0 1.5 Av g.Risk 3.6 3.2 2X Avg.Risk 6.2 5.0 3X Avg.Risk 8.0 6.1 LDL Cholesterol Calc 101 mg/dL (Abnormal) Range: 0-99 VLDL Cholesterol Celso 12 mg/dL (Normal) Range: 5-40 HDL Cholesterol 47 mg/dL (Normal) Triglycerides 59 mg/dL (Normal) Range: 0-149 Cholesterol, Total 160 mg/dL (Normal) Range: 100-199 :27 CBC (AUTO) (23609) Comments: PATIENT WAS FASTINGPERFORMED BY: LabMelissa V[place] 434207 [facility] [id number] BY: LabCoAnn Klein Forensic CenterXxfatb9802 [facility] [id number] Platelets 184 {x10E3/uL} (Normal) Range: 150-379 RDW 12.7 % (Normal) Range: 12.3-15.4 MCHC 32.5 g/dL (Normal) Range: 31.5-35.7 MCH 29.5 pg (Normal) Range: 26.6-33.0 MCV 91 fL (Normal) Range: 79-97 Hematocrit 46.8 % (Abnormal) Range: 34.0-46.6 Hemoglobin 15.2 g/dL (Normal) Range: 11.1-15.9 RBC 5.15 {x10E6/uL} (Normal) Range: 3.77-5.28 WBC 4.5 {x10E3/uL} (Normal) Range: 3.4-10.8 :27 Vitamin D Hydroxy Comments: PATIENT WAS FASTINGPERFORMED BY: [employer] [address] [id number] BY: [employer] CorporationAtrium Health Stanly [id number] (86132) Vitamin D, 25-Hydroxy 49.9 ng/mL (Normal) Range: 30.0-100.0 Comments: Vitamin D deficiency has been defined by the [place] [facility] Hospitalcine and an Endocrine Society practice guideline as alevel of serum 25-OH vitamin D less than 20 ng/mL (1,2).The Endocrine Society went on to further define vitamin Dinsufficiency as a level between 21 and 29 ng/mL (2).1. IOM ([place] of Medicine). 2010. Dietary reference intakes for calcium and D. [place]: The National Academies Press.2. Mayur MF, Scar NC, Claribel CAMP, et al. Evaluation, treatment, and prevention of vitamin D deficiency: an Endocrine Society clinical practice guideline. JCEM. 2010; 96(7):1911-30. :27 MICROALBUMIN: CREATININE Comments: PATIENT WAS FASTINGPERFORMED BY: Be[employer] [id number] BY: Biopharmacopae Muucif9745 [facility] HospitalDXYAtrium Health [facility]ly [id number] RATIO (99080) AND (97724) Microalb/Creat Ratio <13.2 {mg/g_creat} (Normal) Range: 0.0-30.0 Creatinine, Urine 22.8 mg/dL (Normal) Microalbumin, Urine <3.0 ug/mL (Normal) :27 HGB A1C (13356) Comments: PATIENT WAS FASTINGPERFORMED BY: Thucy[address] [id number] BY: LabStraith [facility] For [facility] Surgery6370 [facility] [id number] Hemoglobin A1c 5.5 % (Normal) Range: 4.8-5.6 Comments: . Pre-diabetes: 5.7 - 6.4 Diabetes: >6.4 Glycemic control for adults with diabetes: <7.0 :27 METABOLIC PANEL, Comments: PATIENT WAS FASTINGPERFORMED BY: BN LabCoEmily Ville 869757 [facility] [id number] BY: JOJO LabCoAnn Klein Forensic CenterTppink1892 [facility] [id number] COMPREHENSIVE (54888) ALT (SGPT) 27 [iU]/L (Normal) Range: 0-32 AST (SGOT) 26 [iU]/L (Normal) Range: 0-40 Alkaline Phosphatase, S 94 [iU]/L (Normal) Range: 39-117 Bilirubin, Total 0.4 mg/dL (Normal) Range: 0.0-1.2 A/G Ratio 2.2 (Normal) Range: 1.2-2.2 Globulin, Total 2.2 g/dL (Normal) Range: 1.5-4.5 Albumin, Serum 4.9 g/dL (Abnormal) Range: 3.5-4.8 Protein, Total, Serum 7.1 g/dL (Normal) Range: 6.0-8.5 Calcium, Serum 9.8 mg/dL (Normal) Range: 8.7-10.3 Carbon Dioxide, Total 24 mmol/L (Normal) Range: 18-29 Chloride, Serum 103 mmol/L (Normal) Range: 96-106 Potassium, Serum 4.9 mmol/L (Normal) Range: 3.5-5.2 Sodium, Serum 144 mmol/L (Normal) Range: 134-144 BUN/Creatinine Ratio 32 (Abnormal) Range: 12-28 eGFR If Africn Am 100 mL/min/1.73 (Normal) eGFR If NonAfricn Am 87 mL/min/1.73 (Normal) Creatinine, Serum 0.65 mg/dL (Normal) Range: 0.57-1.00 BUN 21 mg/dL (Normal) Range: 8-27 Glucose, Serum 84 mg/dL (Normal) Range: 65-99 :27 LIPOPROTEIN, BLD, BY NMR Comments: PATIENT WAS FASTINGPERFORMED BY: BN [facility] Keglzpiqft7241 [facility] [id number] BY: CB [facility] Seudqb8442 [facility] [id number]; non-emergent till apt ([address]28) LP-IR Score 62 (Abnormal) Comments: INSULIN RESISTANCE MARKER <--Insulin Sensitive Insulin Resistant--> Percentile in Reference PopulationInsulin Resistance ScoreLP-IR Score Low 25th 50th 75th High <27 27 45 63 >63LP-IR Score is inaccurate if patient is non-fasting. .The LP-IR score is a laboratory developed i [facility] that has beenassociated with insulin resistance and diabetes risk and should beused as one component of a physician's clinical assessment. TheLP-IR score listed above has not been cleared by the [place] Food andDrug Administration. LDL Size 20.4 nm (Normal) Comments: INTERPRETATIVE INFORMATION PARTICLE CONCENTRATION AND SIZE <--Lower CVD Risk Highe r CVD Risk--> LDL AND HDL PARTICLES Percentile in Reference Population HDL-P (total) High 75th 50th 25th Low >34.9 34.9 30.5 26.7 <26.7 . Small LDL-P Low 25th 50th 75th High <117 117 527 839 >839 . LDL Size <-Large (Pattern A)-> <-Small (Pattern B)-> 23.0 20.6 20.5 19.0 Small LDL-P and LDL Size are associated with CVD risk, but not afterLDL-P is taken into account. .These assays were developed and their performance characteristicsdetermined by [employer]. These assays have not been cleared by [place] Food and Drug Administration. The clinical utility of theselaboratory values have not been fully established. Small LDL-P 1052 nmol/L (Abnormal) HDL-P (Total) 34.9 umol/L (Normal) Cholesterol, Total 204 mg/dL (Abnormal) Range: 100-199 Triglycerides 81 mg/dL (Normal) Range: 0-149 HDL-C 48 mg/dL (Normal) LDL-C 140 mg/dL (Abnormal) Range: 0-99 Comments: . Optimal < 100 Above optimal 100 - 129 Borderline 1 30 - 159 High 160 - 189 Very high > 189 .LDL-C is inaccurate if patient is non-fasting. LDL-P 1937 nmol/L (Abnormal) Comments: Low < 1000 Moderate 1000 - 1299 Borderline-High 1300 - 1599 High 1600 - 2000 Very High > 2000 [id number] ([id number]) Comments: PATIENT WAS FASTINGPERFORMED BY: [employer] [address] [id number] BY: [employer] [id number] [facility] [id number] AFP, Serum, Tumor Marker 2.6 ng/mL (Normal) Range: 0.0-8.3 Comments: Jona ECLIA methodology :48 Vitamin D Hydroxy Comments: PATIENT WAS FASTINGPERFORMED BY: [facility] [id number] BY: Buzzoole [id number] [facility] [id number] ([id number]) Vitamin D, 25-Hydroxy 40.8 ng/mL (Normal) Range: 30.0-100.0 Comments: Vitamin D deficiency has been defined by the [place] [employer] and an [employer] Society practice guideline as alevel of serum 25-OH vitamin D less than 20 ng/mL (1,2).The Endocrine Society went on to further define vitamin Dinsufficiency as a level between 21 and 29 ng/mL (2).1. IOM ([place] of Medicine). 2010. Dietary reference intakes for calcium and D. [place]: The National Academies Press.2. Mayur MF, Scar NC, Claribel CAMP, et al. Evaluation, treatment, and prevention of vitamin D deficiency: an Endocrine Society clinical practice guideline. JCEM. 2011 Jan; 96(7):1911-30. :48 HGB A1C (57313) Comments: PATIENT WAS FASTINGPERFORMED BY: [facility] [id number] BY: ThucyAnn Klein Forensic CenterPisqbc2756 [facility] [id number] Hemoglobin A1c 5.5 % (Normal) Range: 4.8-5.6 Comments: . Pre-diabetes: 5.7 - 6.4 Diabetes: >6.4 Glycemic control for adults with diabetes: <7.0 :48 CBC W/AUTO DIFF WBC Comments: PATIENT WAS FASTINGPERFORMED BY: [facility] [id number] BY: ThucyAnn Klein Forensic CenterAnrrlp6960 [facility] [id number] ([id number]) Immature Grans (Abs) 0.0 {x10E3/uL} (Normal) Range: 0.0-0.1 Immature Granulocytes 0 % (Normal) Baso (Absolute) 0.0 {x10E3/uL} (Normal) Range: 0.0-0.2 Eos (Absolute) 0.1 {x10E3/uL} (Normal) Range: 0.0-0.4 Monocytes(Absolute) 0.2 {x10E3/uL} (Normal) Range: 0.1-0.9 Lymphs (Absolute) 1.7 {x10E3/uL} (Normal) Range: 0.7-3.1 Neutrophils (Absolute) 1.7 {x10E3/uL} (Normal) Range: 1.4-7.0 Basos 1 % (Normal) Eos 4 % (Normal) Monocytes 6 % (Normal) Lymphs 45 % (Normal) Neutrophils 44 % (Normal) Platelets 216 {x10E3/uL} (Normal) Range: 150-379 RDW 13.6 % (Normal) Range: 12.3-15.4 MCHC 32.6 g/dL (Normal) Range: 31.5-35.7 MCH 29.4 pg (Normal) Range: 26.6-33.0 MCV 90 fL (Normal) Range: 79-97 Hematocrit 45.4 % (Normal) Range: 34.0-46.6 Hemoglobin 14.8 g/dL (Normal) Range: 11.1-15.9 RBC 5.04 {x10E6/uL} (Normal) Range: 3.77-5.28 WBC 3.8 {x10E3/uL} (Normal) Range: 3.4-10.8 61-Xdw-84773:48 METABOLIC PANEL, Comments: PATIENT WAS FASTINGPERFORMED BY: BN [facility] Shfblyssdq7276 [facility] [id number] BY: CB [facility] Zqtlkk6308 [facility] [id number] COMPREHENSIVE (97365) ALT (SGPT) 21 [iU]/L (Normal) Range: 0-32 AST (SGOT) 23 [iU]/L (Normal) Range: 0-40 Alkaline Phosphatase, S 83 [iU]/L (Normal) Range: 39-117 Bilirubin, Total 0.5 mg/dL (Normal) Range: 0.0-1.2 A/G Ratio 1.8 (Normal) Range: 1.2-2.2 Comments: Please note reference interval change Globulin, Total 2.5 g/dL (Normal) Range: 1.5-4.5 Albumin, Serum 4.4 g/dL (Normal) Range: 3.5-4.8 Protein, Total, Serum 6.9 g/dL (Normal) Range: 6.0-8.5 Calcium, Serum 9.2 mg/dL (Normal) Range: 8.7-10.3 Carbon Dioxide, Total 24 mmol/L (Normal) Range: 18-29 Chloride, Serum 105 mmol/L (Normal) Range: 96-106 Potassium, Serum 4.6 mmol/L (Normal) Range: 3.5-5.2 Sodium, Serum 144 mmol/L (Normal) Range: 134-144 BUN/Creatinine Ratio 22 (Normal) Range: 11-26 eGFR If Africn Am 92 mL/min/1.73 (Normal) eGFR If NonAfricn Am 80 mL/min/1.73 (Normal) Creatinine, Serum 0.74 mg/dL (Normal) Range: 0.57-1.00 BUN 16 mg/dL (Normal) Range: 8-27 Glucose, Serum 92 mg/dL (Normal) Range: 65-99 15-Ijz-30400:48 LIPOPROTEIN, BLD, BY NMR Comments: PATIENT WAS FASTINGPERFORMED BY: BN [facility] Bccraawzbv5649 [facility] [id number] BY: CB [facility] Caqrgv1739 Carmine Renter[place] [id number] (05308) LP-IR Score 67 (Abnormal) Comments: INSULIN RESISTANCE MARKER <--Insulin Sensitive Insulin Resistant--> Percentile in Reference PopulationInsulin Resistance ScoreLP-IR Score Low 25th 50th 75th High <27 27 45 63 >63LP-IR Score is inaccurate if patient is non-fasting. .The LP-IR score is a laboratory developed i [facility] that has beenassociated with insulin resistance and diabetes risk and should beused as one component of a physician's clinical assessment. TheLP-IR score listed above has not been cleared by the [place] Food andDrug Administration. LDL Size 20.4 nm (Normal) Comments: INTERPRETATIVE INFORMATION PARTICLE CONCENTRATION AND SIZE <--Lower CVD Risk Highe r CVD Risk--> LDL AND HDL PARTICLES Percentile in Reference Population HDL-P (total) High 75th 50th 25th Low >34.9 34.9 30.5 26.7 <26.7 . Small LDL-P Low 25th 50th 75th High <117 117 527 839 >839 . LDL Size <-Large (Pattern A)-> <-Small (Pattern B)-> 23.0 20.6 20.5 19.0 Small LDL-P and LDL Size are associated with CVD risk, but not afterLDL-P is taken into account. .These assays were developed and their performance characteristicsdetermined by [employer]. These assays have not been cleared by [place] Food and Drug Administration. The clinical utility of theselaboratory values have not been fully established. Small LDL-P 1058 nmol/L (Abnormal) HDL-P (Total) 32.0 umol/L (Normal) Cholesterol, Total 196 mg/dL (Normal) Range: 100-199 Triglycerides 85 mg/dL (Normal) Range: 0-149 HDL-C 41 mg/dL (Normal) LDL-C 138 mg/dL (Abnormal) Range: 0-99 Comments: . Optimal < 100 Above optimal 100 - 129 Borderline 1 30 - 159 High 160 - 189 Very high > 189 .LDL-C is inaccurate if patient is non-fasting. LDL-P 1937 nmol/L (Abnormal) Comments: Low < 1000 Moderate 1000 - 1299 Borderline-High 1300 - 1599 High 1600 - 2000 Very High > 2000 :48 Vitamin D Hydroxy (74538) Comments: PATIENT WAS FASTINGPERFORMED BY: [facility] [id number] BY: [facility]oneCastAt[facility] [id number] Vitamin D, 25-Hydroxy 43.7 ng/mL (Normal) Range: 30.0-100.0 Comments: Vitamin D deficiency has been defined by the [place] [facility] and an Endocrine Society practice guideline as alevel of serum 25-OH vitamin D less than 20 ng/mL (1,2).The Endocrine Society went on to further define vitamin Dinsufficiency as a level between 21 and 29 ng/mL (2).1. IOM ([place] of Medicine). 2010. Dietary reference intakes for calcium and D. [place]: The National Academies Press.2. Mayur MF, Scar LAWERNCE, Claribel CAMP, et al. Evaluation, treatment, and prevention of vitamin D deficiency: an Endocrine Society clinical practice guideline. JCEM. 2010; 96(7):1911-30. :48 JDCJL-SCNUTTXYKGP-[id number] (72987) Comments: PATIENT WAS FASTINGPERFORMED BY: BeInSyncton1447 [facility] [id number] BY: [facility]Cl[facility] [id number] AFP, Serum, Tumor Marker 2.0 ng/mL (Normal) Range: 0.0-8.3 Comments: Jona ECLIA methodology :48 CBC with auto diff Comments: PATIENT WAS FASTINGPERFORMED BY: Thucy[address] [id number] BY: LabTeraViewAnn Klein Forensic CenterAvemwj1188 [facility] [id number] (49789) Immature Grans (Abs) 0.0 {x10E3/uL} (Normal) Range: 0.0-0.1 Immature Granulocytes 0 % (Normal) Baso (Absolute) 0.0 {x10E3/uL} (Normal) Range: 0.0-0.2 Eos (Absolute) 0.1 {x10E3/uL} (Normal) Range: 0.0-0.4 Monocytes(Absolute) 0.3 {x10E3/uL} (Normal) Range: 0.1-0.9 Lymphs (Absolute) 1.6 {x10E3/uL} (Normal) Range: 0.7-3.1 Neutrophils (Absolute) 1.9 {x10E3/uL} (Normal) Range: 1.4-7.0 Basos 1 % (Normal) Eos 4 % (Normal) Monocytes 8 % (Normal) Lymphs 40 % (Normal) Neutrophils 47 % (Normal) Platelets 172 {x10E3/uL} (Normal) Range: 150-379 RDW 13.1 % (Normal) Range: 12.3-15.4 MCHC 33.3 g/dL (Normal) Range: 31.5-35.7 MCH 30.1 pg (Normal) Range: 26.6-33.0 MCV 90 fL (Normal) Range: 79-97 Hematocrit 45.4 % (Normal) Range: 34.0-46.6 Hemoglobin 15.1 g/dL (Normal) Range: 11.1-15.9 RBC 5.02 {x10E6/uL} (Normal) Range: 3.77-5.28 WBC 4.0 {x10E3/uL} (Normal) Range: 3.4-10.8 :48 METABOLIC PANEL, Comments: PATIENT WAS FASTINGPERFORMED BY: Thucy[address] [id number] BY: JOJO LabTeraViewAnn Klein Forensic CenterAbkibf0935 [facility] [id number] COMPREHENSIVE (06449) ALT (SGPT) 27 [iU]/L (Normal) Range: 0-32 AST (SGOT) 28 [iU]/L (Normal) Range: 0-40 Alkaline Phosphatase, S 72 [iU]/L (Normal) Range: 39-117 Bilirubin, Total 0.5 mg/dL (Normal) Range: 0.0-1.2 A/G Ratio 2.9 (Abnormal) Range: 1.1-2.5 Globulin, Total 1.6 g/dL (Normal) Range: 1.5-4.5 Albumin, Serum 4.7 g/dL (Normal) Range: 3.5-4.8 Protein, Total, Serum 6.3 g/dL (Normal) Range: 6.0-8.5 Calcium, Serum 9.3 mg/dL (Normal) Range: 8.7-10.3 Carbon Dioxide, Total 24 mmol/L (Normal) Range: 18-29 Chloride, Serum 104 mmol/L (Normal) Range: 97-106 Comments: Effective July 10, 2016 the reference interval for Chloride, Serum will be changing to: 96 - 106 Potassium, Serum 4.6 mmol/L (Normal) Range: 3.5-5.2 Sodium, Serum 144 mmol/L (Normal) Range: 136-144 Comments: Effective July 10, 2016 the reference interval for Sodium, Serum will be changing to: 134 - 144 BUN/Creatinine Ratio 23 (Normal) Range: 11-26 eGFR If Africn Am 86 mL/min/1.73 (Normal) eGFR If NonAfricn Am 75 mL/min/1.73 (Normal) Creatinine, Serum 0.78 mg/dL (Normal) Range: 0.57-1.00 BUN 18 mg/dL (Normal) Range: 8-27 Glucose, Serum 82 mg/dL (Normal) Range: 65-99 06-Jul-20169:48 LIPOPROTEIN, BLD, BY NMR Comments: PATIENT WAS FASTINGPERFORMED BY: LabCoVirtua [facility] CenterVqqkodmnkj6769 [facility] [id number] BY: LabTeraViewJennifer Ville 3252070 [facility] [id number]; non-emergent till apt next week (74231) LP-IR Score 71 (Abnormal) Comments: INSULIN RESISTANCE MARKER <--Insulin Sensitive Insulin Resistant--> Percentile in Reference PopulationInsulin Resistance ScoreLP-IR Score Low 25th 50th 75th High <27 27 45 63 >63LP-IR Score is inaccurate if patient is non-fasting. .The LP-IR score is a laboratory developed i [facility] that has beenassociated with insulin resistance and diabetes risk and should beused as one component of a physician's clinical assessment. TheLP-IR score listed above has not been cleared by the US Food andDrug Administration. LDL Size 20.5 nm (Normal) Comments: INTERPRETATIVE INFORMATION PARTICLE CONCENTRATION AND SIZE <--Lower CVD Risk Highe r CVD Risk--> LDL AND HDL PARTICLES Percentile in Reference Population HDL-P (total) High 75th 50th 25th Low >34.9 34.9 30.5 26.7 <26.7 . Small LDL-P Low 25th 50th 75th High <117 117 527 839 >839 . LDL Size <-Large (Pattern A)-> <-Small (Pattern B)-> 23.0 20.6 20.5 19.0 Small LDL-P and LDL Size are associated with CVD risk, but not afterLDL-P is taken into account. .These assays were developed and their performance characteristicsdetermined by [employer]. These assays have not been cleared by [place] Food and Drug Administration. The clinical utility of theselaboratory values have not been fully established. Small LDL-P 931 nmol/L (Abnormal) HDL-P (Total) 28.6 umol/L (Abnormal) Cholesterol, Total 233 mg/dL (Abnormal) Range: 100-199 Triglycerides 93 mg/dL (Normal) Range: 0-149 HDL-C 42 mg/dL (Normal) LDL-C 172 mg/dL (Abnormal) Range: 0-99 Comments: . Optimal < 100 Above optimal 100 - 129 Borderline 1 30 - 159 High 160 - 189 Very high > 189 .LDL-C is inaccurate if patient is non-fasting. LDL-P 2087 nmol/L (Abnormal) Comments: Low < 1000 Moderate 1000 - 1299 Borderline-High 1300 - 1599 High 1600 - 2000 Very High > 2000 :48 HGB A1C (81968) Comments: PATIENT WAS FASTINGPERFORMED BY: [employer] [address] [id number] BY: [employer] Pajdic0409 [facility] [id number] Hemoglobin A1c 5.7 % (Abnormal) Range: 4.8-5.6 Comments: . Pre-diabetes: 5.7 - 6.4 Diabetes: >6.4 Glycemic control for adults with diabetes: <7.0 :48 MICROALBUMIN: CREATININE Comments: PATIENT WAS FASTINGPERFORMED BY: [employer] [address] [id number] BY: [employer] Epeczy3770 [facility] [id number] RATIO (11579) AND (51896) Microalb/Creat Ratio 7.8 {mg/g_creat} (Normal) Range: 0.0-30.0 Microalbumin, Urine 5.3 ug/mL (Normal) Creatinine, Urine 68.0 mg/dL (Normal) 80-Ptp-809477:11 CALCULUS CHEMICAL QUANTI Comments: PATIENT NOT FASTINGPERFORMED BY: [employer] [address] [id number] Information: [id number] ([id number]) Please note: SPRCS (Normal) Comments: Calculi report without photograph will follow via computer, mail,or breaster delivery.Physician questions regarding Calculi Analysis contact [employer] at:[phone]. Nidus No Nidus visualized (Normal) Calcium phosphate 05 % (Normal) Ca oxalate monohydr. 95 % (Normal) Composition SPRCS (Normal) Comments: Percentage (Represents the % composition) Weight 14.0 mg (Normal) Size 3x3x2 mm (Normal) Color Brown (Normal) :20 Basic Metabolic Profile (BMP) Comments: [facility] [address] [place], [place], [id number] GAP 9 (Normal) Range: 5-15 CO2 25.0 mmol/L (Normal) Range: 21.0-32.0 CL 107 mmol/L (Normal) Range: 98-107 K 4.0 mmol/L (Normal) Range: 3.5-5.1 NA 141 mmol/L (Normal) Range: 136-145 CA 9.0 mg/dL (Normal) Range: 8.5-10.1 BUN/CRE 14.7 {RATIO} (Normal) Range: 10-20 Estimated CRCL 31.17 ml/min (Normal) EST GFR - AA 52 mL/min (Abnormal) Comments: GFR Calc EST GFR 43 mL/min (Abnormal) Comments: Non- GFR Calc CREAT,SERUM 1.29 mg/dL (Abnormal) Range: 0.55-1.20 Comments: The validity of the calculated GFR AND GFRAA in patients over70 years has not been determined. Clinical correlation isessential. BUN 19 mg/dL (Abnormal) Range: 7-18 GLU 149 mg/dL (Abnormal) Range: 70-110 Comments: Fasting Glucose result greater than or equal to 126 mg/dLsuggests DIABETES MELLITUS per A.D.A. criteria. :20 CBC W/Diff, Automated Comments: [facility] [address]ck[address] [place], [place], [id number] Absolute Lymph 0.66 {X10_3/ul} (Abnormal) Range: 0.83-4.51 Absolute Neut 5.2 {X10_3/uL} (Normal) Range: 2.0-7.7 IM GRAN % 0.300 % (Normal) Range: 0.0-0.9 Comments: IG% - Immature Granulocytes (promyelocytes, myelocytes andmetamyelocytes) > 1% indicates that a LEFT SHIFT is Present. BASO% 0.2 % (Normal) Range: 0-1 EO% 0.2 % (Normal) Range: 0-5 MONO% 2.0 % (Normal) Range: 0-10 LY% 11.0 % (Abnormal) Range: 19-41 NEUT% 86.3 % (Abnormal) Range: 47-70 MPV 9.9 fL (Normal) Range: 6.2-12.0 PLT 167 K/mm3 (Normal) Range: 150-450 RDW SD 40.7 fL (Normal) Range: 35.1-43.9 RDW CV 12.2 % (Normal) Range: 11.6-14.6 MCHC 33.1 {g/gl} (Normal) Range: 32-36 MCH 30.2 pg (Normal) Range: 27.0-32.0 MCV 91.1 fL (Normal) Range: 81-99 HCT 45.0 % (Normal) Range: 37-47 HGB 14.9 g/dL (Normal) Range: 12.0-15.0 RBC 4.94 {M/mm3} (Normal) Range: 4.2-5.4 WBC 6.0 K/mm3 (Normal) Range: 4.4-11.0 :20 Urinalysis, Complete Comments: Has pt arrived? YHow was Urine Obtained? [facility] Gzzjwtmuqy0794 [facility]. [place], [place], [id number] MUCUS, URINE 0 SEEN {/hpf} (Normal) BACTERIA 0 SEEN {/hpf} (Normal) SQUAM EPI 0-5 SEEN {/hpf} (Normal) Range: 5-10 RBC-UA 0 SEEN {/hpf} (Normal) Range: 0-5 WBC 0-5 SEEN {/hpf} (Normal) Range: 0-5 LEUK ESTERASE 25 /ul (Abnormal) OCCULT BLOOD-UR Negative /ul (Normal) NITRITE UR Negative (Normal) UROBILI Normal mg/dL (Normal) PROT DIPSTX Negative mg/dL (Normal) pH UR 7.0 (Normal) Range: 5.0 - 8.0 SP.GR. DIPSTX 1.010 (Normal) Range: 1.002-1.030 KETONE UR Negative mg/dL (Normal) BILIRUBIN URINE Negative mg/dL (Normal) GLUCOSE, UR Normal mg/dL (Normal) CLARITY Sl. Cloudy (Normal) COLOR Yellow (Normal) :39 Vitamin D Hydroxy (15980) Comments: PATIENT WAS FASTINGPERFORMED BY: [facility] Bstdtc1863 [facility] [id number] Vitamin D, 25-Hydroxy 36.0 ng/mL (Normal) Range: 30.0-100.0 Comments: Vitamin D deficiency has been defined by the [place] of[place]icine and an Endocrine Society practice guideline as alevel of serum 25-OH vitamin D less than 20 ng/mL (1,2).The Endocrine Society went on to further define vitamin Dinsufficiency as a level between 21 and 29 ng/mL (2).1. IOM ([place] of Medicine). 2010. Dietary reference intakes for calcium and D. [place]: The National Academies Press.2. Mayur MF, Scar LAWRENCE, Claribel CAMP, et al. Evaluation, treatment, and prevention of vitamin D deficiency: an Endocrine Society clinical practice guideline. JCEM. 2010; 96(7):1911-30. :39 CBC W/AUTO DIFF WBC Comments: PATIENT WAS FASTINGPERFORMED BY: [facility] Bltmhp1372 [facility] [id number] Information: [id number] (02010) Immature Grans (Abs) 0.0 {x10E3/uL} (Normal) Range: 0.0-0.1 Immature Granulocytes 0 % (Normal) Baso (Absolute) 0.0 {x10E3/uL} (Normal) Range: 0.0-0.2 Eos (Absolute) 0.1 {x10E3/uL} (Normal) Range: 0.0-0.4 Monocytes(Absolute) 0.3 {x10E3/uL} (Normal) Range: 0.1-0.9 Lymphs (Absolute) 1.7 {x10E3/uL} (Normal) Range: 0.7-3.1 Neutrophils (Absolute) 2.0 {x10E3/uL} (Normal) Range: 1.4-7.0 Basos 1 % (Normal) Eos 3 % (Normal) Monocytes 7 % (Normal) Lymphs 41 % (Normal) Neutrophils 48 % (Normal) Platelets 168 {x10E3/uL} (Normal) Range: 150-379 RDW 13.3 % (Normal) Range: 12.3-15.4 MCHC 33.0 g/dL (Normal) Range: 31.5-35.7 MCH 29.6 pg (Normal) Range: 26.6-33.0 MCV 90 fL (Normal) Range: 79-97 Hematocrit 44.9 % (Normal) Range: 34.0-46.6 Hemoglobin 14.8 g/dL (Normal) Range: 11.1-15.9 RBC 5.00 {x10E6/uL} (Normal) Range: 3.77-5.28 WBC 4.1 {x10E3/uL} (Normal) Range: 3.4-10.8 :39 METABOLIC PANEL, COMPREHENSIVE Comments: PATIENT WAS FASTINGPERFORMED BY: LabCoAnn Klein Forensic CenterEnnsow0816 [facility] [id number] (15055) ALT (SGPT) 24 [iU]/L (Normal) Range: 0-32 AST (SGOT) 22 [iU]/L (Normal) Range: 0-40 Alkaline Phosphatase, S 74 [iU]/L (Normal) Range: 39-117 Bilirubin, Total 0.3 mg/dL (Normal) Range: 0.0-1.2 A/G Ratio 1.8 (Normal) Range: 1.1-2.5 Globulin, Total 2.5 g/dL (Normal) Range: 1.5-4.5 Albumin, Serum 4.5 g/dL (Normal) Range: 3.5-4.8 Protein, Total, Serum 7.0 g/dL (Normal) Range: 6.0-8.5 Calcium, Serum 9.1 mg/dL (Normal) Range: 8.7-10.3 Carbon Dioxide, Total 23 mmol/L (Normal) Range: 18-29 Chloride, Serum 107 mmol/L (Normal) Range: 97-108 Potassium, Serum 4.8 mmol/L (Normal) Range: 3.5-5.2 Sodium, Serum 146 mmol/L (Abnormal) Range: 134-144 BUN/Creatinine Ratio 23 (Normal) Range: 11-26 eGFR If Africn Am 87 mL/min/1.73 (Normal) eGFR If NonAfricn Am 76 mL/min/1.73 (Normal) Creatinine, Serum 0.77 mg/dL (Normal) Range: 0.57-1.00 BUN 18 mg/dL (Normal) Range: 8-27 Glucose, Serum 88 mg/dL (Normal) Range: 65-99 :39 LIPID PANEL (79205) Comments: PATIENT WAS FASTINGPERFORMED BY: LabTeraViewAnn Klein Forensic CenterHvrdqv0893 [facility] [id number]; non-emergent till apt LDL/HDL Ratio 4.3 {ratio_units} (Abnormal) Range: 0.0-3.2 Comments: LDL/HDL Ratio Men Women 1/2 Avg.Risk 1.0 1.5 Av g.Risk 3.6 3.2 2X Avg.Risk 6.2 5.0 3X Avg.Risk 8.0 6.1 LDL Cholesterol Calc 170 mg/dL (Abnormal) Range: 0-99 VLDL Cholesterol Celso 22 mg/dL (Normal) Range: 5-40 HDL Cholesterol 40 mg/dL (Normal) Comments: According to ATP-III Guidelines, HDL-C >59 mg/dL is considered anegative risk factor for CHD. Triglycerides 111 mg/dL (Normal) Range: 0-149 Cholesterol, Total 232 mg/dL (Abnormal) Range: 100-199 :58 METABOLIC PANEL, COMPREHENSIVE Comments: PATIENT WAS FASTINGPERFORMED BY: ThucyAnn Klein Forensic CenterOpnvum4070 [facility] [id number] (12752) ALT (SGPT) 28 [iU]/L (Normal) Range: 0-32 AST (SGOT) 31 [iU]/L (Normal) Range: 0-40 Alkaline Phosphatase, S 72 [iU]/L (Normal) Range: 39-117 Bilirubin, Total 0.5 mg/dL (Normal) Range: 0.0-1.2 A/G Ratio 1.9 (Normal) Range: 1.1-2.5 Globulin, Total 2.5 g/dL (Normal) Range: 1.5-4.5 Albumin, Serum 4.8 g/dL (Normal) Range: 3.5-4.8 Protein, Total, Serum 7.3 g/dL (Normal) Range: 6.0-8.5 Calcium, Serum 9.5 mg/dL (Normal) Range: 8.7-10.3 Carbon Dioxide, Total 23 mmol/L (Normal) Range: 18-29 Chloride, Serum 103 mmol/L (Normal) Range: 97-108 Potassium, Serum 4.4 mmol/L (Normal) Range: 3.5-5.2 Sodium, Serum 144 mmol/L (Normal) Range: 134-144 BUN/Creatinine Ratio 25 (Normal) Range: 11-26 eGFR If Africn Am 83 mL/min/1.73 (Normal) eGFR If NonAfricn Am 72 mL/min/1.73 (Normal) Creatinine, Serum 0.81 mg/dL (Normal) Range: 0.57-1.00 BUN 20 mg/dL (Normal) Range: 8-27 Glucose, Serum 83 mg/dL (Normal) Range: 65-99 :58 Vitamin D Hydroxy (84557) Comments: PATIENT WAS FASTINGPERFORMED BY: ThucyMimbres Memorial HospitalLmrtoy6197 [facility] [id number] Vitamin D, 25-Hydroxy 35.4 ng/mL (Normal) Range: 30.0-100.0 Comments: Vitamin D deficiency has been defined by the [place] of[place]icine and an Endocrine Society practice guideline as alevel of serum 25-OH vitamin D less than 20 ng/mL (1,2).The Endocrine Society went on to further define vitamin Dinsufficiency as a level between 21 and 29 ng/mL (2).1. IOM ([place] of Medicine). 2010. Dietary reference intakes for calcium and D. [place]: The National Academies Press.2. Mayur MF, Scar NC, Claribel CAMP, et al. Evaluation, treatment, and prevention of vitamin D deficiency: an Endocrine Society clinical practice guideline. JCEM. 2010; 96(7):1911-30. :58 CBC W/AUTO DIFF WBC Comments: PATIENT WAS FASTINGPERFORMED BY: LabCoAnn Klein Forensic CenterTuswju5114 [facility] [id number] Information: [id number] (13958) Immature Grans (Abs) 0.0 {x10E3/uL} (Normal) Range: 0.0-0.1 Immature Granulocytes 0 % (Normal) Baso (Absolute) 0.0 {x10E3/uL} (Normal) Range: 0.0-0.2 Eos (Absolute) 0.1 {x10E3/uL} (Normal) Range: 0.0-0.4 Monocytes(Absolute) 0.3 {x10E3/uL} (Normal) Range: 0.1-0.9 Lymphs (Absolute) 1.8 {x10E3/uL} (Normal) Range: 0.7-3.1 Neutrophils (Absolute) 2.1 {x10E3/uL} (Normal) Range: 1.4-7.0 Basos 1 % (Normal) Eos 3 % (Normal) Monocytes 8 % (Normal) Lymphs 41 % (Normal) Neutrophils 47 % (Normal) Platelets 187 {x10E3/uL} (Normal) Range: 150-379 RDW 12.9 % (Normal) Range: 12.3-15.4 MCHC 33.6 g/dL (Normal) Range: 31.5-35.7 MCH 29.9 pg (Normal) Range: 26.6-33.0 MCV 89 fL (Normal) Range: 79-97 Hematocrit 46.1 % (Normal) Range: 34.0-46.6 Hemoglobin 15.5 g/dL (Normal) Range: 11.1-15.9 RBC 5.18 {x10E6/uL} (Normal) Range: 3.77-5.28 WBC 4.4 {x10E3/uL} (Normal) Range: 3.4-10.8 :58 [id number] (35842) Comments: PATIENT WAS FASTINGPERFORMED BY: [employer]6370 [facility] [id number] AFP, Serum, Tumor Marker 1.8 ng/mL (Normal) Range: 0.0-8.3 Comments: Jona ECLIA methodology :58 LIPID PANEL (17840) Comments: PATIENT WAS FASTINGPERFORMED BY: [employer]6370 [facility] [id number]; non-emergent till apt LDL/HDL Ratio 5.2 {ratio_units} (Abnormal) Range: 0.0-3.2 Comments: LDL/HDL Ratio Men Women 1/2 Avg.Risk 1.0 1.5 Av g.Risk 3.6 3.2 2X Avg.Risk 6.2 5.0 3X Avg.Risk 8.0 6.1 Comment: LDLCOM (Normal) Comments: Possible Familial Hypercholesterolemia. FH should be suspected whenfasting LDL cholesterol is above 189 mg/dL or non-HDL cholesterolis above 219 mg/dL. A family history of high cholesterol and heartdise ase in 1st degree relatives should be collected. J Clin Nokuidf5245;5:133-140 LDL Cholesterol Calc 197 mg/dL (Abnormal) Range: 0-99 VLDL Cholesterol Celso 31 mg/dL (Normal) Range: 5-40 HDL Cholesterol 38 mg/dL (Abnormal) Comments: According to ATP-III Guidelines, HDL-C >59 mg/dL is considered anegative risk factor for CHD. Triglycerides 156 mg/dL (Abnormal) Range: 0-149 Cholesterol, Total 266 mg/dL (Abnormal) Range: 100-199 :46 Protein Electro, Random Urine Comments: [facility]FOR[facility] BY: [facility] [id number] Please note: SPRCS (Normal) Comments: Protein electrophoresis scan will follow via computer, mail, orcourier delivery. M-Darius, % Not Observed % (Normal) Gamma Globulin, U 12.5 % (Normal) Beta Globulin, U 31.8 % (Normal) Apknn-3-Wzzrkiux, U 16.7 % (Normal) Bhavu-5-Janxyiwg, U 8.1 % (Normal) Albumin, U 30.9 % (Normal) Protein,Total,Urine <4.0 mg/dL (Normal) Range: 0.0-15.0 Comments: Verified by repeat analysis :46 Protein Electro.,S Comments: [facility]FOR[facility] BY: [facility] [id number] Please note: SPRCS (Normal) Comments: Protein electrophoresis scan will follow via computer, mail, orcourier delivery. A/G Ratio 1.4 (Normal) Range: 0.7-2.0 Globulin, Total 3.1 g/dL (Normal) Range: 2.0-4.5 M-Darius Not Observed g/dL (Normal) Gamma Globulin 0.9 g/dL (Normal) Range: 0.5-1.6 Beta Globulin 1.1 g/dL (Normal) Range: 0.6-1.3 Wekfa-3-Qighmigb 0.9 g/dL (Normal) Range: 0.4-1.2 Kvqem-9-Tctsffww 0.2 g/dL (Normal) Range: 0.1-0.4 Albumin 4.2 g/dL (Normal) Range: 3.2-5.6 :46 CBC W/AUTO DIFF WBC (54056) Comments: PERFORMED BY: [facility]CoAnn [facility] CenterYhgarb0838 [facility] [id number] Immature Grans (Abs) 0.0 {x10E3/uL} (Normal) Range: 0.0-0.1 Immature Granulocytes 0 % (Normal) Baso (Absolute) 0.0 {x10E3/uL} (Normal) Range: 0.0-0.2 Eos (Absolute) 0.2 {x10E3/uL} (Normal) Range: 0.0-0.4 Monocytes(Absolute) 0.3 {x10E3/uL} (Normal) Range: 0.1-0.9 Lymphs (Absolute) 2.1 {x10E3/uL} (Normal) Range: 0.7-3.1 Neutrophils (Absolute) 1.8 {x10E3/uL} (Normal) Range: 1.4-7.0 Basos 1 % (Normal) Eos 4 % (Normal) Monocytes 7 % (Normal) Lymphs 47 % (Normal) Neutrophils 41 % (Normal) Platelets 182 {x10E3/uL} (Normal) Range: 150-379 RDW 13.2 % (Normal) Range: 12.3-15.4 MCHC 33.3 g/dL (Normal) Range: 31.5-35.7 MCH 29.3 pg (Normal) Range: 26.6-33.0 MCV 88 fL (Normal) Range: 79-97 Hematocrit 47.7 % (Abnormal) Range: 34.0-46.6 Hemoglobin 15.9 g/dL (Normal) Range: 11.1-15.9 RBC 5.43 {x10E6/uL} (Abnormal) Range: 3.77-5.28 WBC 4.4 {x10E3/uL} (Normal) Range: 3.4-10.8 :46 METABOLIC PANEL, COMPREHENSIVE Comments: PERFORMED BY: Thucy Must See [facility]At[facility] [id number] ([id number]) ALT (SGPT) 31 [iU]/L (Normal) Range: 0-32 AST (SGOT) 31 [iU]/L (Normal) Range: 0-40 Alkaline Phosphatase, S 87 [iU]/L (Normal) Range: 39-117 Bilirubin, Total 0.6 mg/dL (Normal) Range: 0.0-1.2 A/G Ratio 2.2 (Normal) Range: 1.1-2.5 Globulin, Total 2.3 g/dL (Normal) Range: 1.5-4.5 Albumin, Serum 5.0 g/dL (Abnormal) Range: 3.5-4.8 Protein, Total, Serum 7.3 g/dL (Normal) Range: 6.0-8.5 Calcium, Serum 9.8 mg/dL (Normal) Range: 8.7-10.3 Carbon Dioxide, Total 23 mmol/L (Normal) Range: 18-29 Chloride, Serum 102 mmol/L (Normal) Range: 97-108 Potassium, Serum 4.1 mmol/L (Normal) Range: 3.5-5.2 Sodium, Serum 144 mmol/L (Normal) Range: 134-144 BUN/Creatinine Ratio 19 (Normal) Range: 11-26 eGFR If Africn Am 72 mL/min/1.73 (Normal) eGFR If NonAfricn Am 62 mL/min/1.73 (Normal) Creatinine, Serum 0.91 mg/dL (Normal) Range: 0.57-1.00 BUN 17 mg/dL (Normal) Range: 8-27 Glucose, Serum 80 mg/dL (Normal) Range: 65-99 :46 PARATHORMONE (79749) Comments: PERFORMED BY: Thucy Must See [facility]At[facility] [id number] PTH, Intact 16 pg/mL (Normal) Range: 15-65 :46 Vitamin D Hydroxy (68391) Comments: PERFORMED BY: [facility] HospitalDXYAt[facility] [id number] Vitamin D, 25-Hydroxy 47.0 ng/mL (Normal) Range: 30.0-100.0 Comments: Vitamin D deficiency has been defined by the [place] of[place]icine and an Endocrine Society practice guideline as alevel of serum 25-OH vitamin D less than 20 ng/mL (1,2).The Endocrine Society went on to further define vitamin Dinsufficiency as a level between 21 and 29 ng/mL (2).1. IOM ([place] of Medicine). 2010. Dietary reference intakes for calcium and D. [place]: The National Academies Press.2. Mayur MF, Scar LAWRENCE, Claribel CAMP, et al. Evaluation, treatment, and prevention of vitamin D deficiency: an Endocrine Society clinical practice guideline. JCEM. 2010; 96(7):1911-30. :46 TSH (84012) Comments: PERFORMED BY: [facility] [id number] TSH 4.390 {uIU/mL} (Normal) Range: 0.450-4.500 :46 LIPID PANEL (06034) Comments: PERFORMED BY: DroneCastAt[facility] Health [facility] [id number]; non-emergent till apt LDL/HDL Ratio 4.0 {ratio_units} (Abnormal) Range: 0.0-3.2 Comments: LDL/HDL Ratio Men Women 1/2 Avg.Risk 1.0 1.5 Av g.Risk 3.6 3.2 2X Avg.Risk 6.2 5.0 3X Avg.Risk 8.0 6.1 LDL Cholesterol Calc 182 mg/dL (Abnormal) Range: 0-99 VLDL Cholesterol Celso 24 mg/dL (Normal) Range: 5-40 HDL Cholesterol 45 mg/dL (Normal) Comments: According to ATP-III Guidelines, HDL-C >59 mg/dL is considered anegative risk factor for CHD. Triglycerides 121 mg/dL (Normal) Range: 0-149 Cholesterol, Total 251 mg/dL (Abnormal) Range: 100-199 :08 METABOLIC PANEL, COMPREHENSIVE Comments: PATIENT WAS FASTINGPERFORMED BY: DroneCastAt[facility] Health [facility] [id number] (54982) ALT (SGPT) 23 [iU]/L (Normal) Range: 0-32 AST (SGOT) 25 [iU]/L (Normal) Range: 0-40 Alkaline Phosphatase, S 111 [iU]/L (Normal) Range: 39-117 Bilirubin, Total 0.3 mg/dL (Normal) Range: 0.0-1.2 A/G Ratio 2.0 (Normal) Range: 1.1-2.5 Globulin, Total 2.3 g/dL (Normal) Range: 1.5-4.5 Albumin, Serum 4.6 g/dL (Normal) Range: 3.5-4.8 Protein, Total, Serum 6.9 g/dL (Normal) Range: 6.0-8.5 Calcium, Serum 9.3 mg/dL (Normal) Range: 8.7-10.3 Carbon Dioxide, Total 24 mmol/L (Normal) Range: 18-29 Chloride, Serum 106 mmol/L (Normal) Range: 97-108 Potassium, Serum 4.9 mmol/L (Normal) Range: 3.5-5.2 Sodium, Serum 143 mmol/L (Normal) Range: 134-144 BUN/Creatinine Ratio 23 (Normal) Range: 11-26 eGFR If Africn Am 75 mL/min/1.73 (Normal) eGFR If NonAfricn Am 65 mL/min/1.73 (Normal) Creatinine, Serum 0.88 mg/dL (Normal) Range: 0.57-1.00 BUN 20 mg/dL (Normal) Range: 8-27 Glucose, Serum 89 mg/dL (Normal) Range: 65-99 30-Nov-20149:08 CBC W/AUTO DIFF WBC Comments: PATIENT WAS FASTINGPERFORMED BY: LabCoAnn Klein Forensic CenterBcrneh6472 [facility] [id number] Information: [id number] (75041) Immature Grans (Abs) 0.0 {x10E3/uL} (Normal) Range: 0.0-0.1 Immature Granulocytes 0 % (Normal) Baso (Absolute) 0.0 {x10E3/uL} (Normal) Range: 0.0-0.2 Eos (Absolute) 0.1 {x10E3/uL} (Normal) Range: 0.0-0.4 Monocytes(Absolute) 0.2 {x10E3/uL} (Normal) Range: 0.1-0.9 Lymphs (Absolute) 1.5 {x10E3/uL} (Normal) Range: 0.7-3.1 Neutrophils (Absolute) 2.1 {x10E3/uL} (Normal) Range: 1.4-7.0 Basos 1 % (Normal) Eos 2 % (Normal) Monocytes 5 % (Normal) Lymphs 38 % (Normal) Neutrophils 54 % (Normal) Platelets 194 {x10E3/uL} (Normal) Range: 150-379 RDW 13.5 % (Normal) Range: 12.3-15.4 MCHC 32.9 g/dL (Normal) Range: 31.5-35.7 MCH 29.3 pg (Normal) Range: 26.6-33.0 MCV 89 fL (Normal) Range: 79-97 Hematocrit 43.8 % (Normal) Range: 34.0-46.6 Hemoglobin 14.4 g/dL (Normal) Range: 11.1-15.9 RBC 4.91 {x10E6/uL} (Normal) Range: 3.77-5.28 WBC 3.8 {x10E3/uL} (Normal) Range: 3.4-10.8 :08 LIPID PANEL (01934) Comments: PATIENT WAS FASTINGPERFORMED BY: [facility] Ukpwmb9670 [facility] [id number]; non-emergent till apt LDL/HDL Ratio 4.7 {ratio_units} (Abnormal) Range: 0.0-3.2 Comments: LDL/HDL Ratio Men Women 1/2 Avg.Risk 1.0 1.5 Av g.Risk 3.6 3.2 2X Avg.Risk 6.2 5.0 3X Avg.Risk 8.0 6.1 LDL Cholesterol Calc 182 mg/dL (Abnormal) Range: 0-99 VLDL Cholesterol Celso 23 mg/dL (Normal) Range: 5-40 HDL Cholesterol 39 mg/dL (Abnormal) Comments: According to ATP-III Guidelines, HDL-C >59 mg/dL is considered anegative risk factor for CHD. Triglycerides 113 mg/dL (Normal) Range: 0-149 Cholesterol, Total 244 mg/dL (Abnormal) Range: 100-199 :08 GGT (Gamma Glutamyl Transferase) Comments: PATIENT WAS FASTINGPERFORMED BY: [facility]6370 [facility] [id number] (33020) GGT 11 [iU]/L (Normal) Range: 0-60 :08 SLDVH-XCKUUEGOONA-LTLZU (20129) Comments: PATIENT WAS FASTINGPERFORMED BY: [facility]6370 [facility] [id number] AFP, Serum, Tumor Marker 1.6 ng/mL (Normal) Range: 0.0-8.3 Comments: Jona ECLIA methodology :08 PTT (Activated Partial Comments: PATIENT WAS FASTINGPERFORMED BY: [place] 6021970 [facility] [id number] Thromboplastin Time) (66576) aPTT 27 {sec} (Normal) Range: 24-33 Comments: This test has not been validated for monitoring unfractionated heparintherapy. aPTT-based therapeutic ranges for unfractionated heparintherapy have not been established. For general guidelines onHeparin monitoring, refer to the [facility] Directory of Services. :08 PT (Prothrobim Time) (95732) Comments: PATIENT WAS FASTINGPERFORMED BY: [facility]6370 [facility] [id number] Prothrombin Time 10.8 {sec} (Normal) Range: 9.1-12.0 INR 1.0 (Normal) Range: 0.8-1.2 Comments: Reference interval is for non-anticoagulated patients. . Suggested INR therapeutic range for Vitamin K anta gonist therapy: Standard Dose (moderate intensity therapeutic range): 2.0 - 3.0 Higher intensity therapeutic range 2.5 - 3.5 :08 Vitamin D Hydroxy (29692) Comments: PATIENT WAS FASTINGPERFORMED BY: [place] 6021970 [facility] [id number] Vitamin D, 25-Hydroxy 43.7 ng/mL (Normal) Range: 30.0-100.0 Comments: Vitamin D deficiency has been defined by the [place] of[place]icine and an Endocrine Society practice guideline as alevel of serum 25-OH vitamin D less than 20 ng/mL (1,2).The Endocrine Society went on to further define vitamin Dinsufficiency as a level between 21 and 29 ng/mL (2).1. IOM ([place] of Medicine). 2010. Dietary reference intakes for calcium and D. [place]: The National AcademShoop Press.2. Scar Garza, Claribel CAMP, et al. Evaluation, treatment, and prevention of vitamin D deficiency: an Endocrine Society clinical practice guideline. JCEM. 2010; 96(7):1911-30. [id number]:17 CBC (AUTO) (30559) Comments: PATIENT WAS FASTINGPERFORMED BY: [facility] Clipsb0668 [facility]At[facility] [id number] Platelets 159 {x10E3/uL} (Normal) Range: 150-379 RDW 13.2 % (Normal) Range: 12.3-15.4 MCHC 32.9 g/dL (Normal) Range: 31.5-35.7 MCH 29.5 pg (Normal) Range: 26.6-33.0 MCV 90 fL (Normal) Range: 79-97 Hematocrit 45.6 % (Normal) Range: 34.0-46.6 Hemoglobin 15.0 g/dL (Normal) Range: 11.1-15.9 RBC 5.09 {x10E6/uL} (Normal) Range: 3.77-5.28 WBC 4.2 {x10E3/uL} (Normal) Range: 3.4-10.8 9-Qtk-396615:17 Vitamin D Hydroxy (64604) Comments: PATIENT WAS FASTINGPERFORMED BY: [facility] [facility] Bzoxgu3540 [facility] [id number] Vitamin D, 25-Hydroxy 52.9 ng/mL (Normal) Range: 30.0-100.0 Comments: Vitamin D deficiency has been defined by the [place] of[place]icine and an Endocrine Society practice guideline as alevel of serum 25-OH vitamin D less than 20 ng/mL (1,2).The Endocrine Society went on to further define vitamin Dinsufficiency as a level between 21 and 29 ng/mL (2).1. IOM ([place] of Medicine). 2010. Dietary reference intakes for calcium and D. [place]: The National AcademShoop Press.2. Scar Garza, Claribel CAMP, et al. Evaluation, treatment, and prevention of vitamin D deficiency: an Endocrine Society clinical practice guideline. JCEM. 2010; 96(7):1911-30. [id number]:17 METABOLIC PANEL, Comments: PATIENT WAS FASTINGPERFORMED BY: [facility] Cawtam7707 [facility] [id number] Information: [id number] COMPREHENSIVE (88112) ALT (SGPT) 25 [iU]/L (Normal) Range: 0-32 AST (SGOT) 22 [iU]/L (Normal) Range: 0-40 Alkaline Phosphatase, S 134 [iU]/L (Abnormal) Range: 39-117 Bilirubin, Total 0.3 mg/dL (Normal) Range: 0.0-1.2 A/G Ratio 1.8 (Normal) Range: 1.1-2.5 Globulin, Total 2.5 g/dL (Normal) Range: 1.5-4.5 Albumin, Serum 4.4 g/dL (Normal) Range: 3.5-4.8 Protein, Total, Serum 6.9 g/dL (Normal) Range: 6.0-8.5 Calcium, Serum 9.6 mg/dL (Normal) Range: 8.6-10.2 Comments: Effective August 17, 2014 the reference interval for Calcium, Serum will be changing to: Age Male Female 0 - 10 days 8.6 - 10.4 8.6 - 10.4 11 days - 1 year 9.2 - 11.0 9.2 - 11.0 2 - 11 years 9.1 - 10.5 9.1 - 10.5 12 - 17 years 8.9 - 10.4 8.9 - 10.4 18 - 59 years 8.7 - 10.2 8.7 - 10.2 >59 years 8.6 - 10.2 8.7 - 10.3 Carbon Dioxide, Total 25 mmol/L (Normal) Range: 18-29 Chloride, Serum 104 mmol/L (Normal) Range: 97-108 Potassium, Serum 5.0 mmol/L (Normal) Range: 3.5-5.2 Sodium, Serum 143 mmol/L (Normal) Range: 134-144 BUN/Creatinine Ratio 23 (Normal) Range: 11-26 eGFR If Africn Am 81 mL/min/1.73 (Normal) eGFR If NonAfricn Am 70 mL/min/1.73 (Normal) Creatinine, Serum 0.83 mg/dL (Normal) Range: 0.57-1.00 BUN 19 mg/dL (Normal) Range: 8-27 Glucose, Serum 82 mg/dL (Normal) Range: 65-99 8-Mtq-611406:17 LIPID PANEL (17498) Comments: PATIENT WAS FASTINGPERFORMED BY: ThucyMimbres Memorial HospitalKkmhrj5963 [facility] [id number] LDL/HDL Ratio 3.8 {ratio_units} Range: 0.0-3.2 (Abnormal) Comments: LDL/HDL Ratio Men Women 1/2 Avg.Risk 1.0 1.5 Av g.Risk 3.6 3.2 2X Avg.Risk 6.2 5.0 3X Avg.Risk 8.0 6.1 LDL Cholesterol Calc 147 mg/dL (Abnormal) Range: 0-99 VLDL Cholesterol Celso 22 mg/dL (Normal) Range: 5-40 HDL Cholesterol 39 mg/dL (Abnormal) Comments: According to ATP-III Guidelines, HDL-C >59 mg/dL is considered anegative risk factor for CHD. Triglycerides 108 mg/dL (Normal) Range: 0-149 Cholesterol, Total 208 mg/dL (Abnormal) Range: 100-199 C difficile Toxins A+B, Negative (Normal) Comments: PATIENT NOT FASTINGPERFORMED BY: [facility]6370 [facility] [id number] 418:58 EIA 80-[id number]:58 Ova + Parasite Exam Comments: PATIENT NOT FASTINGPERFORMED BY: [facility]6370 [facility] [id number] Result 1 NOCP (Normal) Comments: No ova, cysts, or parasites seen. Ova + Parasite Exam Final report (Normal) Comments: These results were obtained using wet preparation(s) and trichromestained smear. This test does not include testing for Cryptosporidiumparvum, Cyclospora, or Microsporidia. :58 Stool Culture Comments: PATIENT NOT FASTINGPERFORMED BY: PlayCafeMiss[facility] Medical CenterWptbyd9943 [facility] [id number] Information: SRC:ST STOOL E coli Shiga Toxin EIA Negative (Normal) Result 1 NCI (Normal) Comments: No Campylobacter species isolated. Campylobacter Culture Final report (Normal) Result 1 NSS (Normal) Comments: No Salmonella or Shigella recovered. Salmonella/Shigella Screen Final report (Normal) 54-Pxb-[id number]:58 White Blood Cells (WBC), Comments: PATIENT NOT FASTINGPERFORMED BY: [facility] Dhwyrz6129 [facility] [id number] Stool Result 1 NWBC (Normal) Comments: No white blood cells seen. White Blood Cells (WBC), Final report (Normal) Comments: Reference Range: None Seen Stool :09 CRE CREAT 0.6 mg/dL (Normal) Range: 0.6-1.0 :36 CBC WITH MANUAL DIFF Comments: PATIENT WAS FASTINGPERFORMED BY: [facility] Olrzpu8654 [facility] [id number] Information: [id number] (83065) Immature Grans (Abs) 0.0 {x10E3/uL} (Normal) Range: 0.0-0.1 Immature Granulocytes 0 % (Normal) Range: 0-2 Baso (Absolute) 0.0 {x10E3/uL} (Normal) Range: 0.0-0.2 Eos (Absolute) 0.0 {x10E3/uL} (Normal) Range: 0.0-0.4 Monocytes(Absolute) 0.4 {x10E3/uL} (Normal) Range: 0.1-0.9 Lymphs (Absolute) 1.5 {x10E3/uL} (Normal) Range: 0.7-3.1 Neutrophils (Absolute) 3.0 {x10E3/uL} (Normal) Range: 1.4-7.0 Basos 0 % (Normal) Range: 0-3 Eos 0 % (Normal) Range: 0-5 Monocytes 8 % (Normal) Range: 4-12 Lymphs 31 % (Normal) Range: 14-46 Neutrophils 61 % (Normal) Range: 40-74 Platelets 201 {x10E3/uL} (Normal) Range: 150-379 RDW 13.1 % (Normal) Range: 12.3-15.4 MCHC 32.1 g/dL (Normal) Range: 31.5-35.7 MCH 28.9 pg (Normal) Range: 26.6-33.0 Hematocrit 44.6 % (Normal) Range: 34.0-46.6 MCV 90 fL (Normal) Range: 79-97 Hemoglobin 14.3 g/dL (Normal) Range: 11.1-15.9 RBC 4.95 {x10E6/uL} (Normal) Range: 3.77-5.28 WBC 5.0 {x10E3/uL} (Normal) Range: 3.4-10.8 :36 METABOLIC PANEL, COMPREHENSIVE Comments: PATIENT WAS FASTINGPERFORMED BY: LabCoAnn Klein Forensic CenterWhztgs5585 [facility] [id number] (64961) ALT (SGPT) 25 [iU]/L (Normal) Range: 0-32 AST (SGOT) 25 [iU]/L (Normal) Range: 0-40 Alkaline Phosphatase, S 88 [iU]/L (Normal) Range: 39-117 Bilirubin, Total 0.4 mg/dL (Normal) Range: 0.0-1.2 A/G Ratio 1.8 (Normal) Range: 1.1-2.5 Globulin, Total 2.4 g/dL (Normal) Range: 1.5-4.5 Albumin, Serum 4.4 g/dL (Normal) Range: 3.5-4.8 Protein, Total, Serum 6.8 g/dL (Normal) Range: 6.0-8.5 Calcium, Serum 9.3 mg/dL (Normal) Range: 8.6-10.2 Carbon Dioxide, Total 22 mmol/L (Normal) Range: 18-29 Chloride, Serum 106 mmol/L (Normal) Range: 97-108 Potassium, Serum 4.1 mmol/L (Normal) Range: 3.5-5.2 Sodium, Serum 144 mmol/L (Normal) Range: 134-144 BUN/Creatinine Ratio 21 (Normal) Range: 11-26 eGFR If Africn Am 70 mL/min/1.73 (Normal) eGFR If NonAfricn Am 60 mL/min/1.73 (Normal) Creatinine, Serum 0.94 mg/dL (Normal) Range: 0.57-1.00 BUN 20 mg/dL (Normal) Range: 8-27 Glucose, Serum 78 mg/dL (Normal) Range: 65-99 :36 LIPID PANEL (74195) Comments: PATIENT WAS FASTINGPERFORMED BY: Thucy Dhrmks3419 [facility] [id number] LDL/HDL Ratio 3.4 {ratio_units} (Abnormal) Range: 0.0-3.2 LDL Cholesterol Calc 129 mg/dL (Abnormal) Range: 0-99 HDL Cholesterol 38 mg/dL (Abnormal) Comments: According to ATP-III Guidelines, HDL-C >59 mg/dL is considered anegative risk factor for CHD. VLDL Cholesterol Celso 22 mg/dL (Normal) Range: 5-40 Cholesterol, Total 189 mg/dL (Normal) Range: 100-199 Triglycerides 109 mg/dL (Normal) Range: 0-149 :36 Vitamin D Hydroxy (12751) Comments: PATIENT WAS FASTINGPERFORMED BY: [employer]6370 [facility] [id number] Vitamin D, 25-Hydroxy 55.9 ng/mL (Normal) Range: 30.0-100.0 Comments: Vitamin D deficiency has been defined by the [place] ofMedicine and an Endocrine Society practice guideline as alevel of serum 25-OH vitamin D less than 20 ng/mL (1,2).The Endocrine Society went on to further define vitamin Dinsufficiency as a level between 21 and 29 ng/mL (2).1. IOM ([place] of Medicine). 2010. Dietary reference intakes for calcium and D. [place]: The National Academies Press.2. Mayur MF, Scar NC, Claribel CAMP, et al. Evaluation, treatment, and prevention of vitamin D deficiency: an Endocrine Society clinical practice guideline. JCEM. 2010; 96(7):1911-30. :36 [id number] (86577) Comments: PATIENT WAS FASTINGPERFORMED BY: ThucyAnn Klein Forensic CenterFcsnwl9372 [facility] [id number] AFP, Serum, Tumor Marker 1.5 ng/mL (Normal) Range: 0.0-8.3 Comments: Jona ECLIA methodology :36 PTT (Activated Partial Comments: PATIENT WAS FASTINGPERFORMED BY: [facility] [id number] Thromboplastin Time) (82428) aPTT 27 {sec} (Normal) Range: 24-33 Comments: This test has not been validated for monitoring unfractionated heparintherapy. aPTT-based therapeutic ranges for unfractionated heparintherapy have not been established. For general guidelines onHeparin monitoring, refer to the [facility] Directory of Services. :36 PT (Prothrobim Time) (60032) Comments: PATIENT WAS FASTINGPERFORMED BY: [place] 6021970 [facility] [id number] Prothrombin Time 10.7 {sec} (Normal) Range: 9.1-12.0 INR 1.0 (Normal) Range: 0.8-1.2 Comments: Reference interval is for non-anticoagulated patients. . Suggested INR therapeutic range for Vitamin K anta gonist therapy: Standard Dose (moderate intensity therapeutic range): 2.0 - 3.0 Higher intensity therapeutic range 2.5 - 3.5 :50 CBC WITH MANUAL DIFF Comments: PATIENT NOT FASTINGPERFORMED BY: [place] [address] [facility] [id number] Information: [id number] (33423) Immature Grans (Abs) 0.0 {x10E3/uL} (Normal) Range: 0.0-0.1 Immature Granulocytes 0 % (Normal) Range: 0-2 Baso (Absolute) 0.0 {x10E3/uL} (Normal) Range: 0.0-0.2 Eos (Absolute) 0.0 {x10E3/uL} (Normal) Range: 0.0-0.4 Monocytes(Absolute) 0.3 {x10E3/uL} (Normal) Range: 0.1-0.9 Lymphs (Absolute) 1.6 {x10E3/uL} (Normal) Range: 0.7-3.1 Neutrophils (Absolute) 2.2 {x10E3/uL} (Normal) Range: 1.4-7.0 Basos 0 % (Normal) Range: 0-3 Eos 1 % (Normal) Range: 0-5 Monocytes 7 % (Normal) Range: 4-12 Lymphs 38 % (Normal) Range: 14-46 Neutrophils 54 % (Normal) Range: 40-74 Platelets 185 {x10E3/uL} (Normal) Range: 155-379 RDW 13.1 % (Normal) Range: 12.3-15.4 MCHC 33.1 g/dL (Normal) Range: 31.5-35.7 MCH 30.1 pg (Normal) Range: 26.6-33.0 MCV 91 fL (Normal) Range: 79-97 Hematocrit 46.8 % (Abnormal) Range: 34.0-46.6 Hemoglobin 15.5 g/dL (Normal) Range: 11.1-15.9 RBC 5.15 {x10E6/uL} (Normal) Range: 3.77-5.28 WBC 4.0 {x10E3/uL} (Normal) Range: 3.4-10.8 :50 LIPID PANEL (40607) Comments: PATIENT NOT FASTINGPERFORMED BY: ThucyAnn Klein Forensic CenterOvswhd7869 [facility] [id number] LDL/HDL Ratio 4.0 {ratio_units} (Abnormal) Range: 0.0-3.2 LDL Cholesterol Calc 144 mg/dL (Abnormal) Range: 0-99 VLDL Cholesterol Celso 23 mg/dL (Normal) Range: 5-40 HDL Cholesterol 36 mg/dL (Abnormal) Comments: According to ATP-III Guidelines, HDL-C >59 mg/dL is considered anegative risk factor for CHD. Triglycerides 115 mg/dL (Normal) Range: 0-149 Cholesterol, Total 203 mg/dL (Abnormal) Range: 100-199 :50 METABOLIC PANEL, COMPREHENSIVE Comments: PATIENT NOT FASTINGPERFORMED BY: ThucyAnn [facility] Forensic CenterHigzge6211 [facility] [id number] (35289) ALT (SGPT) 58 [iU]/L (Abnormal) Range: 0-32 AST (SGOT) 42 [iU]/L (Abnormal) Range: 0-40 Alkaline Phosphatase, S 80 [iU]/L (Normal) Range: 39-117 Bilirubin, Total 0.4 mg/dL (Normal) Range: 0.0-1.2 A/G Ratio 1.6 (Normal) Range: 1.1-2.5 Albumin, Serum 4.4 g/dL (Normal) Range: 3.5-4.8 Globulin, Total 2.7 g/dL (Normal) Range: 1.5-4.5 Protein, Total, Serum 7.1 g/dL (Normal) Range: 6.0-8.5 Calcium, Serum 9.7 mg/dL (Normal) Range: 8.6-10.2 Carbon Dioxide, Total 25 mmol/L (Normal) Range: 19-28 Chloride, Serum 107 mmol/L (Normal) Range: 97-108 Potassium, Serum 5.0 mmol/L (Normal) Range: 3.5-5.2 BUN/Creatinine Ratio 22 (Normal) Range: 11-26 Sodium, Serum 145 mmol/L (Abnormal) Range: 134-144 eGFR If Africn Am 71 mL/min/1.73 (Normal) eGFR If NonAfricn Am 61 mL/min/1.73 (Normal) Creatinine, Serum 0.93 mg/dL (Normal) Range: 0.57-1.00 BUN 20 mg/dL (Normal) Range: 8-27 Glucose, Serum 87 mg/dL (Normal) Range: 65-99 :50 Vitamin D Hydroxy (29361) Comments: PATIENT NOT FASTINGPERFORMED BY: [facility] Csctpg4807 [facility] [id number] Vitamin D, 25-Hydroxy 46.4 ng/mL (Normal) Range: 30.0-100.0 Comments: Vitamin D deficiency has been defined by the [place] ofMedicine and an Endocrine Society practice guideline as alevel of serum 25-OH vitamin D less than 20 ng/mL (1,2).The Endocrine Society went on to further define vitamin Dinsufficiency as a level between 21 and 29 ng/mL (2).1. IOM ([place] of Medicine). 2010. Dietary reference intakes for calcium and D. [place]: The National Academies Press.2. Mayur WALKER, Scar LAWRENCE, Claribel CAMP, et al. Evaluation, treatment, and prevention of vitamin D deficiency: an Endocrine Society clinical practice guideline. JCEM. 2010; 96(7):1911-30. [id number]-[id number]:33 METABOLIC PANEL, COMPREHENSIVE Comments: PATIENT WAS FASTINGPERFORMED BY: [employer]6370 [facility] [id number] (57687) ALT (SGPT) 50 [iU]/L (Abnormal) Range: 0-32 AST (SGOT) 39 [iU]/L (Normal) Range: 0-40 Alkaline Phosphatase, S 80 [iU]/L (Normal) Range: 39-117 Bilirubin, Total 0.4 mg/dL (Normal) Range: 0.0-1.2 A/G Ratio 1.9 (Normal) Range: 1.1-2.5 Globulin, Total 2.5 g/dL (Normal) Range: 1.5-4.5 Albumin, Serum 4.7 g/dL (Normal) Range: 3.5-4.8 Protein, Total, Serum 7.2 g/dL (Normal) Range: 6.0-8.5 Calcium, Serum 9.3 mg/dL (Normal) Range: 8.6-10.2 Carbon Dioxide, Total 24 mmol/L (Normal) Range: 19-28 Chloride, Serum 107 mmol/L (Normal) Range: 97-108 Potassium, Serum 4.8 mmol/L (Normal) Range: 3.5-5.2 Sodium, Serum 144 mmol/L (Normal) Range: 134-144 BUN/Creatinine Ratio 24 (Normal) Range: 11-26 eGFR If Africn Am 79 mL/min/1.73 (Normal) eGFR If NonAfricn Am 69 mL/min/1.73 (Normal) Creatinine, Serum 0.85 mg/dL (Normal) Range: 0.57-1.00 BUN 20 mg/dL (Normal) Range: 8-27 Glucose, Serum 90 mg/dL (Normal) Range: 65-99 [id number] Vitamin D Hydroxy ([id number]) Comments: PATIENT WAS FASTINGPERFORMED BY: Thucy [id number] [facility] [id number] Vitamin D, 25-Hydroxy 47.0 ng/mL (Normal) Range: 30.0-100.0 Comments: Vitamin D deficiency has been defined by the [place] [employer] and an Endocrine Society practice guideline as alevel of serum 25-OH vitamin D less than 20 ng/mL (1,2).The Endocrine Society went on to further define vitamin Dinsufficiency as a level between 21 and 29 ng/mL (2).1. IOM ([place] [employer]). 2010. Dietary reference intakes for calcium and D. [place]: The National Academies Press.2. Mayur MF, Scar LAWRENCE, Claribel CAMP, et al. Evaluation, treatment, and prevention of vitamin D deficiency: an Endocrine Society clinical practice guideline. JCEM. 2010; 96(7):1911-30. 15-Bhx-155116:33 CBC WITH MANUAL DIFF Comments: PATIENT WAS FASTINGPERFORMED BY: [facility] Anzdrf2144 [facility] [id number] Information: [id number] (32553) Immature Grans (Abs) 0.0 {x10E3/uL} (Normal) Range: 0.0-0.1 Immature Granulocytes 0 % (Normal) Range: 0-2 Baso (Absolute) 0.0 {x10E3/uL} (Normal) Range: 0.0-0.2 Eos (Absolute) 0.2 {x10E3/uL} (Normal) Range: 0.0-0.4 Monocytes(Absolute) 0.2 {x10E3/uL} (Normal) Range: 0.1-0.9 Lymphs (Absolute) 1.7 {x10E3/uL} (Normal) Range: 0.7-3.1 Neutrophils (Absolute) 1.9 {x10E3/uL} (Normal) Range: 1.4-7.0 Basos 1 % (Normal) Range: 0-3 Eos 4 % (Normal) Range: 0-5 Monocytes 5 % (Normal) Range: 4-12 Lymphs 43 % (Normal) Range: 14-46 Neutrophils 47 % (Normal) Range: 40-74 Platelets 166 {x10E3/uL} (Normal) Range: 155-379 RDW 13.3 % (Normal) Range: 12.3-15.4 MCHC 33.8 g/dL (Normal) Range: 31.5-35.7 MCH 30.5 pg (Normal) Range: 26.6-33.0 MCV 90 fL (Normal) Range: 79-97 Hematocrit 46.7 % (Abnormal) Range: 34.0-46.6 Hemoglobin 15.8 g/dL (Normal) Range: 11.1-15.9 RBC 5.18 {x10E6/uL} (Normal) Range: 3.77-5.28 WBC 3.9 {x10E3/uL} (Normal) Range: 3.4-10.8 :33 UCVDL-FONYWIDXYLK-SQUWD (07991) Comments: PATIENT WAS FASTINGPERFORMED BY: [address] [id number] AFP, Serum, Tumor Marker 2.1 ng/mL (Normal) Range: 0.0-8.3 Comments: Jona ECLIA methodology :33 PTT (Activated Partial Comments: PATIENT WAS FASTINGPERFORMED BY: [address] [id number] Thromboplastin Time) (33324) aPTT 26 {sec} (Normal) Range: 24-33 Comments: This test has not been validated for monitoring unfractionated heparintherapy. aPTT-based therapeutic ranges for unfractionated heparintherapy have not been established. For general guidelines onHeparin monitoring, refer to the [facility] Directory of Services. :33 PT (Prothrobim Time) (65324) Comments: PATIENT WAS FASTINGPERFORMED BY: [facility]6370 [facility] [id number] INR 1.1 (Normal) Range: 0.8-1.2 Comments: Reference interval is for non-anticoagulated patients. . Suggested INR therapeutic range for Vitamin K anta gonist therapy: Standard Dose (moderate intensity therapeutic range): 2.0 - 3.0 Higher intensity therapeutic range 2.5 - 3.5 Prothrombin Time 11.0 {sec} (Normal) Range: 9.1-12.0 :33 LIPID PANEL (20811) Comments: PATIENT WAS FASTINGPERFORMED BY: [place] [address]1970 [facility] [id number] LDL/HDL Ratio 4.3 {ratio_units} (Abnormal) Range: 0.0-3.2 LDL Cholesterol Calc 170 mg/dL (Abnormal) Range: 0-99 VLDL Cholesterol Celso 26 mg/dL (Normal) Range: 5-40 HDL Cholesterol 40 mg/dL (Normal) Comments: According to ATP-III Guidelines, HDL-C >59 mg/dL is considered anegative risk factor for CHD. Triglycerides 129 mg/dL (Normal) Range: 0-149 Cholesterol, Total 236 mg/dL (Abnormal) Range: 100-199 39-Jio-55383:00 SPINE LUMBAR (ROUTINE) Radiology Report See Note Comments: STUDY: MRI LUMBAR SPINE WITHOUT CONTRAST REASON FOR EXAM: Female, 72 years old. Lower back pain withradiculopathy in right leg for one year. TECHNIQUE: Standardized fat and water weighted pulse s (Normal) equences wereobtained in the sagittal and axial planes. COMPARISON: None. FINDINGS:Normal lumbar lordosis. There is a grade 1 spondylolisthesis at L4-5.Nosubstantia l scoliosis. No compression fracture or destructive or infiltrative process is seen. Normal conus medullaris that terminates at lower L1. T12-L1 and L1-2: No significant finding identified. L2-3: Mild disc dehydration and mild loss of the disc height. Annularbulging, mainly anteriorly. Anterior endplate osteophytes and mildadjacent bone marrow signal changes. Mild right facet joint arthrosis,with a joint effusion. No narrowing of the neural foramina, lateralrecesses, or central canal. L3-4: Mild disc dehydration a normal disc height. Slight annularbulging.No endplate osteophytes. Schmorl's node in the upper L4 endplate. Mildright facet joint arthrosis. No narrowing of the neural foramina,lateralrecesses, or central canal. L4-5: Mild disc dehydration and mild loss of the disc height. G rade 1spondylolisthesis. Mild right foraminal disc protrusion. Minimalendplateosteophytes. Moderate facet joint arthrosis. Mild narrowing of therightforamen with impingement of the exiting right L4 nerve root. No leftforaminal narrowing. Mild lateral recess narrowing and mild impingementofthe traversing L5 nerve roots. No central canal narrowing. L5-S1: Minimal disc dehydration and normal disc height. Minimal annularbulging. No endplate osteophytes. No significant facet joint arthrosis.No narrowing of the neural foramina, lateral recesses, or central canal. Normal visualized sacral ala. N ormal visualized paraspinous soft tissue structures. IMPRESSION:Facet joint arthrosis at L4-5 with a grade 1 spondylolisthesis. Disc degeneration and right foraminal d isc protrusion at L4-5 with mildimpingement of the exiting right L4 nerve root. There is also mildimpingement of the bilateral traversing L5 nerve roots. Mild disc degeneration and right facet joint ar throsis at L2-3. Signed:Leann Hamilton M.D.April 23, 2013 at 4:48:16 PM [id number] Signed PV/PV If you are the referring physician and would like to consult with theradiologis t who provided this interpretation, please contact Leann Flynn M.D. at [phone]. If this radiologist is unavailable, youwillbe directed to another radiologist to assist. If you are a patient w ith a question regarding this report, pleasecontactyour referring physician directly. Professional Interpretation Provided By: [employer], Phone , These documents contain legally protected and confidential healthinformation intended only for the use of the individual or entity namedabove. If you are not the intended recipient, you are hereby notifiedthatany disclosure, c opying, distribution, or other use of these documents isstrictly prohibited. If you have received this information in error,pleasenotify the sender immediately and arrange for the return or destructiono fthese documents. Dictated on 04/23/131647 by Leann Cole MDTranscribed on 04/23/131649 by ITS IMPORTSign by Leann Cole MD on 04/23/131650 Sign by: Leann Cole MD 66-Ygv-242588:43 C-REACTIVE PROTEIN ([id number]) Comments: PATIENT NOT FASTINGPERFORMED BY: [facility] [id number] C-Reactive Protein, Quant 0.7 mg/L (Normal) Range: 0.0-4.9 :43 SED RATE ERYTHROCYTE Comments: PATIENT NOT FASTINGPERFORMED BY: [facility]6370 [facility] [id number] Information: [id number] (08868) Sedimentation Rate-Westergren 2 mm/h (Normal) Range: 0-40 :50 METABOLIC PANEL, COMPREHENSIVE Comments: PATIENT WAS FASTINGPERFORMED BY: [facility] [id number] (33240) ALT (SGPT) 66 [iU]/L (Abnormal) Range: 0-32 AST (SGOT) 44 [iU]/L (Abnormal) Range: 0-40 Alkaline Phosphatase, S 68 [iU]/L (Normal) Range: 45-108 Bilirubin, Total 0.4 mg/dL (Normal) Range: 0.0-1.2 A/G Ratio 1.8 (Normal) Range: 1.1-2.5 Globulin, Total 2.5 g/dL (Normal) Range: 1.5-4.5 Albumin, Serum 4.5 g/dL (Normal) Range: 3.5-4.8 Protein, Total, Serum 7.0 g/dL (Normal) Range: 6.0-8.5 Calcium, Serum 9.6 mg/dL (Normal) Range: 8.6-10.2 Carbon Dioxide, Total 23 mmol/L (Normal) Range: 19-28 Chloride, Serum 104 mmol/L (Normal) Range: 97-108 Potassium, Serum 4.7 mmol/L (Normal) Range: 3.5-5.2 Sodium, Serum 142 mmol/L (Normal) Range: 134-144 BUN/Creatinine Ratio 28 (Abnormal) Range: 11-26 Creatinine, Serum 0.85 mg/dL (Normal) Range: 0.57-1.00 eGFR If Africn Am 79 mL/min/1.73 (Normal) eGFR If NonAfricn Am 69 mL/min/1.73 (Normal) BUN 24 mg/dL (Normal) Range: 8-27 Glucose, Serum 93 mg/dL (Normal) Range: 65-99 :50 Vitamin D Hydroxy (50539) Comments: PATIENT WAS FASTINGPERFORMED BY: [facility] HospitalFsiaya8297 [facility] [id number] Vitamin D, 25-Hydroxy 44.8 ng/mL (Normal) Range: 30.0-100.0 Comments: Vitamin D deficiency has been defined by the [place] ofMedicine and an Endocrine Society practice guideline as alevel of serum 25-OH vitamin D less than 20 ng/mL (1,2).The Endocrine Society went on to further define vitamin Dinsufficiency as a level between 21 and 29 ng/mL (2).1. IOM ([place] of Medicine). 2010. Dietary reference intakes for calcium and D. [place]: The National Academies Press.2. Mayur MF, Scar NC, Claribel CAMP, et al. Evaluation, treatment, and prevention of vitamin D deficiency: an Endocrine Society clinical practice guideline. JCEM. 2010; 96(7):1911-30. :50 LIPID PANEL (50449) Comments: PATIENT WAS FASTINGPERFORMED BY: Thucy Buhleb9381 [facility] [id number] LDL/HDL Ratio 4.6 {ratio_units} (Abnormal) Range: 0.0-3.2 HDL Cholesterol 36 mg/dL (Abnormal) Comments: According to ATP-III Guidelines, HDL-C >59 mg/dL is considered anegative risk factor for CHD. LDL Cholesterol Calc 166 mg/dL (Abnormal) Range: 0-99 Triglycerides 148 mg/dL (Normal) Range: 0-149 VLDL Cholesterol Celso 30 mg/dL (Normal) Range: 5-40 Cholesterol, Total 232 mg/dL (Abnormal) Range: 100-199 :50 CBC WITH MANUAL DIFF Comments: PATIENT WAS FASTINGPERFORMED BY: [facility] CenterHyqfgt4236 [facility] [id number] Information: [id number] (66523) Immature Grans (Abs) 0.0 {x10E3/uL} (Normal) Range: 0.0-0.1 Immature Granulocytes 0 % (Normal) Range: 0-2 Baso (Absolute) 0.0 {x10E3/uL} (Normal) Range: 0.0-0.2 Eos (Absolute) 0.1 {x10E3/uL} (Normal) Range: 0.0-0.4 Monocytes(Absolute) 0.3 {x10E3/uL} (Normal) Range: 0.1-1.0 Lymphs (Absolute) 1.8 {x10E3/uL} (Normal) Range: 0.7-4.5 Neutrophils (Absolute) 2.0 {x10E3/uL} (Normal) Range: 1.8-7.8 Basos 1 % (Normal) Range: 0-3 Eos 3 % (Normal) Range: 0-7 Lymphs 42 % (Normal) Range: 14-46 Monocytes 7 % (Normal) Range: 4-13 Neutrophils 47 % (Normal) Range: 40-74 Platelets 150 {x10E3/uL} (Normal) Range: 140-415 Comments: Effective April 07, 2013, the reference intervals for CBC:WBC, Differential Parameters (Neutrophil %, Neutrophil Absolute, Lymphocyte %, Lymphocyte Absolute, Monocyte %, Monocyte Absolute, Eos inophil %, Eosinophil Absolute), and Platelet Counts will be adjusted to maintain consistency with the distribution of these values in the reference population. RDW 13.1 % (Normal) Range: 12.3-15.4 MCHC 34.0 g/dL (Normal) Range: 31.5-35.7 MCH 30.5 pg (Normal) Range: 26.6-33.0 MCV 90 fL (Normal) Range: 79-97 Hematocrit 45.9 % (Normal) Range: 34.0-46.6 Hemoglobin 15.6 g/dL (Normal) Range: 11.1-15.9 RBC 5.11 {x10E6/uL} (Normal) Range: 3.77-5.28 WBC 4.3 {x10E3/uL} (Normal) Range: 4.0-10.5 Comments: Effective April 07, 2013, the reference intervals for CBC:WBC, Differential Parameters (Neutrophil %, Neutrophil Absolute, Lymphocyte %, Lymphocyte Absolute, Monocyte %, Monocyte Absolute, Eos inophil %, Eosinophil Absolute), and Platelet Counts will be adjusted to maintain consistency with the distribution of these values in the reference population. 13-Epi-78285:00 KNEE 4 OR MORE VIEWS Radiology Report See Note Comments: PROCEDURES: X-RAY - RIGHT KNEE REASON FOR EXAM: Female, 72 years old. Pain TECHNIQUE: Four views of the knee. COMPARISON: None. FINDINGS:There is mild degener (Normal) ative arthrosis of the medial femorotibialcompartment. Normal lateral femorotibial compartment. There is milddegenerative arthrosis of the patellofemoral articulation. There is nodemonstrated joint e ffusion. Normal visualized distal femur. Normal visualized proximal tibia andfibula. Normal proximal tibiofibular articulation. There is no demonstrated fracture. IM PRESSION:Mild degenerative changes are present. No acute fracture. No significant joint effusion. Signed:Alli Clinton D.O.January 13, 2013 at 10:54:29 AM [id number] Signed DS/DS If you a re the referring physician and would like to consult with theradiologist who provided this interpretation, please contact Alli Clinton D.O. at [phone]. If this radiologist is unavailable, you will b edirected to another radiologist to assist. If you are a patient with a question regarding this report, pleasecontactyour referring physician directly. Professional Interpretation Provided By: Yosi moreno, Phone , These documents contain legally protected and confidential healthinformation intended only for the use of the individual or entity namedabove. If you are not th e intended recipient, you are hereby notifiedthatany disclosure, copying, distribution, or other use of these documents isstrictly prohibited. If you have received this information in error,pleasenotify the sender immediately and arrange for the return or destructionofthese documents. Dictated on 01/13/13 1054 by Lynn Garcia DOranscribed on 01/13/13 1059 by ITS IMPORTSign by Diego Garcia DO on 01/13/13 1100 Sign by: Diego Garcia DO 02-Jan-20139:30 METABOLIC PANEL, Comments: PATIENT WAS FASTINGPERFORMED BY: [facility] Wgudih1865 [facility] [id number] Information: [id number] COMPREHENSIVE (61309) ALT (SGPT) 50 [iU]/L (Abnormal) Range: 0-32 Alkaline Phosphatase, S 64 [iU]/L (Normal) Range: 25-165 AST (SGOT) 34 [iU]/L (Normal) Range: 0-40 Bilirubin, Total 0.4 mg/dL (Normal) Range: 0.0-1.2 A/G Ratio 1.9 (Normal) Range: 1.1-2.5 Globulin, Total 2.3 g/dL (Normal) Range: 1.5-4.5 Albumin, Serum 4.3 g/dL (Normal) Range: 3.5-4.8 Protein, Total, Serum 6.6 g/dL (Normal) Range: 6.0-8.5 Calcium, Serum 9.2 mg/dL (Normal) Range: 8.6-10.2 Carbon Dioxide, Total 21 mmol/L (Normal) Range: 20-32 Comments: Effective January 13, 2013, the reference interval for Carbon Dioxide, Total will be changing to: 0 - 7 days 18 - 28 8 - 30 days - 27 31 d - 5 months 15 - 26 6 m - up to 1 year 15 - 25 1 - 12 years 17 - 26 > 12 years 19 - 28 Chloride, Serum 106 mmol/L (Normal) Range: 97-108 Potassium, Serum 4.1 mmol/L (Normal) Range: 3.5-5.2 Sodium, Serum 140 mmol/L (Normal) Range: 134-144 BUN/Creatinine Ratio 30 (Abnormal) Range: 11-26 eGFR If Africn Am 83 mL/min/1.73 (Normal) eGFR If NonAfricn Am 72 mL/min/1.73 (Normal) Creatinine, Serum 0.82 mg/dL (Normal) Range: 0.57-1.00 BUN 25 mg/dL (Normal) Range: 8-27 Glucose, Serum 90 mg/dL (Normal) Range: 65-99 :30 LIPID PANEL (45743) Comments: PATIENT WAS FASTINGPERFORMED BY: [facility]cyAnn [facility]nsic CenterIljblt2639 [facility] [id number] LDL/HDL Ratio 3.7 {ratio_units} (Abnormal) Range: 0.0-3.2 LDL Cholesterol Calc 131 mg/dL (Abnormal) Range: 0-99 VLDL Cholesterol Celso 42 mg/dL (Abnormal) Range: 5-40 Cholesterol, Total 208 mg/dL (Abnormal) Range: 100-199 HDL Cholesterol 35 mg/dL (Abnormal) Comments: According to ATP-III Guidelines, HDL-C >59 mg/dL is considered anegative risk factor for CHD. Triglycerides 208 mg/dL (Abnormal) Range: 0-149 77-Rly-152391:32 Protein Electro, Random Urine Comments: PATIENT NOT FASTINGPERFORMED BY: ThucyAnn [facility]nsic CenterDcbqvu4375 [facility] [id number] Please note: SPRCS (Normal) Comments: Protein electrophoresis scan will follow via computer, mail, orcourier delivery. Beta Globulin, U 30.6 % (Normal) Gamma Globulin, U 31.1 % (Normal) M-Darius, % Not Observed % (Normal) Zbmga-2-Iutviuns, U 18.2 % (Normal) Bnrgc-8-Oikioepp, U 2.5 % (Normal) Albumin, U 17.6 % (Normal) Protein,Total,Urine 3.1 mg/dL (Normal) Range: 0.0-15.0 96-Vup-035089:32 Protein Electro.,S Comments: PATIENT NOT FASTINGPERFORMED BY: [facility]6370 [facility] [id number] Information: SRC: URINE A/G Ratio 1.7 (Normal) Range: 0.7-2.0 Please note: SPRCS (Normal) Comments: Protein electrophoresis scan will follow via computer, mail, orcourier delivery. Globulin, Total 2.6 g/dL (Normal) Range: 2.0-4.5 M-Darius Not Observed g/dL (Normal) Beta Globulin 1.0 g/dL (Normal) Range: 0.6-1.3 Gamma Globulin 0.7 g/dL (Normal) Range: 0.5-1.6 Ofoxk-0-Wdsbarcv 0.1 g/dL (Normal) Range: 0.1-0.4 Pvlxr-5-Wfxddakj 0.7 g/dL (Normal) Range: 0.4-1.2 Albumin 4.5 g/dL (Normal) Range: 3.2-5.6 Protein, Total, Serum 7.1 g/dL (Normal) Range: 6.0-8.5 :32 ETXGF-BDIGSVCHCSP-DVLUL (45305) Comments: PATIENT NOT FASTINGPERFORMED BY: [employer]6370 [facility] [id number] AFP, Serum, Tumor Marker 1.5 ng/mL (Normal) Range: 0.0-8.3 Comments: Jona ECLIA methodology :32 LIPID PANEL (05435) Comments: PATIENT NOT FASTINGPERFORMED BY: [employer]6370 [facility] [id number] LDL Cholesterol Calc 132 mg/dL (Abnormal) Range: 0-99 LDL/HDL Ratio 3.5 {ratio_units} (Abnormal) Range: 0.0-3.2 HDL Cholesterol 38 mg/dL (Abnormal) Comments: According to ATP-III Guidelines, HDL-C >59 mg/dL is considered anegative risk factor for CHD. Triglycerides 160 mg/dL (Abnormal) Range: 0-149 VLDL Cholesterol Celso 32 mg/dL (Normal) Range: 5-40 Cholesterol, Total 202 mg/dL (Abnormal) Range: 100-199 52-Rnn-234816:32 PARATHORMONE (78609) Comments: PATIENT NOT FASTINGPERFORMED BY: [facility]zzoole Deteft9686 [facility] [id number] PTH, Intact 16 pg/mL (Normal) Range: 15-65 :32 PHOSPHORUS (30631) Comments: PATIENT NOT FASTINGPERFORMED BY: [employer] [facility] Ithnfg2887 Lou [facility] [id number] Phosphorus, Serum 3.7 mg/dL (Normal) Range: 2.5-4.5 59-Msn-446555:32 PTT (Activated Partial Comments: PATIENT NOT FASTINGPERFORMED BY: JOJO [place] 5491770 [facility] [id number] Thromboplastin Time) (27551) aPTT 25 {sec} (Normal) Range: 24-33 Comments: This test has not been validated for monitoring unfractionated heparintherapy. aPTT-based therapeutic ranges for unfractionated heparintherapy have not been established. For general guidelines onHeparin monitoring, refer to the [facility] Directory of Services. 34-Pyh-990054:32 PT (Prothrobim Time) (18471) Comments: PATIENT NOT FASTINGPERFORMED BY: JOJO [facility]6370 [facility] [id number] INR 1.0 (Normal) Range: 0.8-1.2 Comments: Reference interval is for non-anticoagulated patients. . Suggested INR therapeutic range for Vitamin K anta gonist therapy: Standard Dose (moderate intensity therapeutic range): 2.0 - 3.0 Higher intensity therapeutic range 2.5 - 3.5 Prothrombin Time 10.9 {sec} (Normal) Range: 9.1-12.0 29-Slb-552181:01 Calcium, 24Hr Urine Comments: PERFORMED BY: [place] [address]1970 [facility] [id number] Information: 08/26/@830AM 08/27@830AM Calcium, Urine 24hr 208.0 {mg/24_hr} (Normal) Range: 100.0-300.0 Calcium, Urine 8.0 mg/dL (Normal) 50-Jac-697881:35 BILAT SCRN DIGITAL & CAD Radiology Report See Note (Normal) Comments: MAMMOGRAPHY - BILATERAL SCREENING REASON FOR EXAM: Female, 71 years old. Routine annual screeningexamination. PERTINENT HISTORY: Non-contributory. TECHNIQUE: Digital examination. Med iolateral ob lique (MLO) andcraniocaudad (CC) views of both breasts were obtained. CAD: CAD wasperformed on this study. COMPARISON: Comparison is made with prior studies dated July 06nd May 02, 2010. F INDINGS:The breast composition is composed of scattered fibroglandular densities. There are no dominant masses or suspicious calcifications. No other significant abnormalities are identified. There has been nosignificant change since the prior study. IMPRESSION:Stable bilateral screening mammogram. Yearly follow-up recommended. (A) ASSESSMENT CATEGORY:BIRADS Category 2: Benign finding(s). A jahaira er regarding these resultswill be sent to the patient by the facility within 30 days. Approximately 10% of breast cancers are not detected by mammography. Anormal mammogram should not delay biopsy of a clinically suspiciousabnormality. Signed:Constantino Bryan M.D.July 18, 2012 at 1:56:05 PM [id number] Signed GP/GP If you are the referring physician and would like to consult with theradiologist who provided this interpretation, please contact Nusrat Cain at [phone]. If this radiologist is unavailable, youwill be directed to another radiologist to assist. If you are a patient with a question regarding this report, pleasecontactyour referring physician directly. Professional Interpretation Provided By: [employer], Phone , Thes e documents contain legally protected and confidential healthinformation intended only for the use of the individual or entity namedabove. If you are not the intended recipient, you are hereby notifiedt hatany disclosure, copying, distribution, or other use of these documents isstrictly prohibited. If you have received this information in error,pleasenotify the sender immediately and arrange for the re turn or destructionofthese documents. Dictated on 07/18/12 1235 by Franco Bryan MDranscribed on 07/18/12 1402 by ITS IMPORTSign by Constantino Bryan MD on 07/18/12 1403 Sign by: Constantino Bryan MD 69-Bqa-234035:35 DEXA BONE DENSITY STUDY (HP) Radiology Report See Note (Normal) Comments: PROCEDURE: DUAL ENERGY X-RAY ABSORPTIOMETRY / DXA REASON FOR EXAM: Female, 71 years old. Osteopenia. TECHNIQUE: Bone Mineral Density (BMD) measurements of lumbar spine andbilateral hips were obtai natalia. COMPARISON: Comparison is made with prior study dated January 11, 2010. FINDINGS: Lumbar Spine (L1-L4): g/cm2 (1.057) / T-score (-1.0) / Z-score (0.7) Left Femur Total: g/cm2 (0.916) / T-sco re (-0.7) / Z-score (0.8)Left Femoral Neck: g/cm2 (0.775) / T-score (- 1.9) / Z-score (-0.1)Right Femur Total: g/cm2 (0.941) / T-score (-0.5) / Z-score (1.0)Right Femoral Neck: g/cm2 (0.804) / T-score (-1.7) / Z-score (0.1) The T-Scores on the most recent prior examination were: Lumbar Spine (L1-L4): which represents an improvement of 1.2%.Left Femur Total: which represents a worsening of 9.9%.Right Femur Total: which represents a worsening of 5.4%. IMPRESSION:The patient is considered osteopenic, as outlined above, according toWorldHealth Organization (WHO) criteria. Fracture risk is moderate. Reference Information:The T-score is the number of standard deviations above or below thestandard which is normal for young adults at their peak bone mineraldensity. The Worl d Health Organization (WHO) interprets the T-scores asfollows: Above -1 Normal bone densityBetween -1 and -2.5 OsteopeniaEqual to / or below -2.5 Osteoporosis As a practical clinical guide line, osteopenia may be graded as follows:Mild -1 through -1.5Moderate -1.6 through -2.0Severe -2.1 through -2.4 The Z-score is the number of standard deviations above or below age-matchedcontrols. A Z-score of less than -1.5 would be considered abnormal. References:1. NIH Osteoporosis and Related Bone Diseases http://www.osteo.org2. International Society for Clinical Densitometry http://www.iscd .org3. National Osteoporosis Foundation http://www.nof.org Signed:Constantino Bryan M.D.July 18, 2012 at 1:48:07 PM [id number] Signed GP/GP If you are the referring physician a nd would like to consult with theradiologist who provided this interpretation, please contact Nusrat Cain at [phone]. If this radiologist is unavailable, youwill be directed to another radiologist to assist. If you are a patient with a question regarding this report, pleasecontactyour referring physician directly. Professional Interpretation Provided By: [employer], Phone , These documents contain legally protected and confidential healthinformation intended only for the use of the individual or entity namedabove. If you are not the intended recipient, you are hereby notifiedthatany disclosure, copying, distribution, or other use of these documents isstrictly prohibited. If you have received this information in error,pleasenotify the sender immediate ly and arrange for the return or destructionofthese documents. Dictated on 07/18/12 1301 by Clare BARNETT,Francoranscribed on 07/18/12 1352 by ITS IMPORTSign by Clare BARNETT,Constantino on 07/18/12 1 353 Sign by: Constantino Bryan MD 72-Gnm-70791:38 TSH ([id number]) Comments: PATIENT WAS FASTINGPERFORMED BY: Biopharmacopae Teubpx1264 [facility] [id number] TSH 2.950 {uIU/mL} (Normal) Range: 0.450-4.500 81-Usl-40362:38 CBC WITH MANUAL DIFF Comments: PATIENT WAS FASTINGPERFORMED BY: Biopharmacopae Oisecb6383 [facility] [id number] Information: [id number] ([id number]) Immature Grans (Abs) 0.0 {x10E3/uL} (Normal) Range: 0.0-0.1 Immature Granulocytes 0 % (Normal) Range: 0-2 Baso (Absolute) 0.0 {x10E3/uL} (Normal) Range: 0.0-0.2 Eos (Absolute) 0.2 {x10E3/uL} (Normal) Range: 0.0-0.4 Monocytes(Absolute) 0.2 {x10E3/uL} (Normal) Range: 0.1-1.0 Lymphs (Absolute) 1.8 {x10E3/uL} (Normal) Range: 0.7-4.5 Neutrophils (Absolute) 2.0 {x10E3/uL} (Normal) Range: 1.8-7.8 Basos 1 % (Normal) Range: 0-3 Eos 5 % (Normal) Range: 0-7 Monocytes 5 % (Normal) Range: 4-13 Lymphs 42 % (Normal) Range: 14-46 Neutrophils 47 % (Normal) Range: 40-74 Platelets 173 {x10E3/uL} (Normal) Range: 140-415 RDW 13.5 % (Normal) Range: 12.3-15.4 MCHC 34.1 g/dL (Normal) Range: 31.5-35.7 MCH 30.2 pg (Normal) Range: 26.6-33.0 MCV 89 fL (Normal) Range: 79-97 Hematocrit 44.6 % (Normal) Range: 34.0-46.6 Hemoglobin 15.2 g/dL (Normal) Range: 11.1-15.9 RBC 5.04 {x10E6/uL} (Normal) Range: 3.77-5.28 WBC 4.2 {x10E3/uL} (Normal) Range: 4.0-10.5 16-Hqu-23053:38 METABOLIC PANEL, COMPREHENSIVE Comments: PATIENT WAS FASTINGPERFORMED BY: LabCoAnn [facility] Forensic CenterYrwrrn9890 [facility] [id number] ([id number]) ALT (SGPT) 69 [iU]/L (Abnormal) Range: 0-40 AST (SGOT) 46 [iU]/L (Abnormal) Range: 0-40 Alkaline Phosphatase, S 69 [iU]/L (Normal) Range: 25-165 Bilirubin, Total 0.6 mg/dL (Normal) Range: 0.0-1.2 A/G Ratio 2.0 (Normal) Range: 1.1-2.5 Globulin, Total 2.1 g/dL (Normal) Range: 1.5-4.5 Albumin, Serum 4.3 g/dL (Normal) Range: 3.5-4.8 Protein, Total, Serum 6.4 g/dL (Normal) Range: 6.0-8.5 Calcium, Serum 9.1 mg/dL (Normal) Range: 8.6-10.2 Carbon Dioxide, Total 22 mmol/L (Normal) Range: 20-32 Chloride, Serum 106 mmol/L (Normal) Range: 97-108 Potassium, Serum 4.2 mmol/L (Normal) Range: 3.5-5.2 Sodium, Serum 142 mmol/L (Normal) Range: 134-144 BUN/Creatinine Ratio 22 (Normal) Range: 11-26 eGFR If Africn Am 75 mL/min/1.73 (Normal) eGFR If NonAfricn Am 65 mL/min/1.73 (Normal) BUN 20 mg/dL (Normal) Range: 8-27 Creatinine, Serum 0.89 mg/dL (Normal) Range: 0.57-1.00 Glucose, Serum 92 mg/dL (Normal) Range: 65-99 :38 LIPID PANEL ([id number]) Comments: PATIENT WAS FASTINGPERFORMED BY: [employer]6370 [facility] CorporationAt[facility] [id number] LDL/HDL Ratio 4.6 {ratio_units} (Abnormal) Range: 0.0-3.2 LDL Cholesterol Calc 175 mg/dL (Abnormal) Range: 0-99 HDL Cholesterol 38 mg/dL (Abnormal) Comments: According to ATP-III Guidelines, HDL-C >59 mg/dL is considered anegative risk factor for CHD. VLDL Cholesterol Celso 23 mg/dL (Normal) Range: 5-40 Triglycerides 114 mg/dL (Normal) Range: 0-149 Cholesterol, Total 236 mg/dL (Abnormal) Range: 100-199 :38 Vitamin D Hydroxy (57798) Comments: PATIENT WAS FASTINGPERFORMED BY: theRightAPI70 [facility] [id number] Vitamin D, 25-Hydroxy 36.3 ng/mL (Normal) Range: 30.0-100.0 Comments: Vitamin D deficiency has been defined by the [place] of[place]icine and an Endocrine Society practice guideline as alevel of serum 25-OH vitamin D less than 20 ng/mL (1,2).The Endocrine Society went on to further define vitamin Dinsufficiency as a level between 21 and 29 ng/mL (2).1. IOM ([place] of Medicine). 2010. Dietary reference intakes for calcium and D. [place]: The National Academies Press.2. Mayur MF, Scar NC, Claribel CAMP, et al. Evaluation, treatment, and prevention of vitamin D deficiency: an Endocrine Society clinical practice guideline. JCEM. 2010; 96(7):1911-30. 06-Jul-20118:45 BILAT SCRN DIGITAL & CAD Radiology Report See Note (Normal) Comments: MAMMOGRAPHY - BILATERAL SCREENING REASON FOR EXAM: Female, 70 years old. Routine annual screeningexamination. PERTINENT HISTORY: Non-contributory. TECHNIQUE: Digital examination. Med iolateral ob lique (MLO) andcraniocaudad (CC) views of both breasts were obtained. CAD: CAD wasperformed on this study. COMPARISON: Comparison is made with prior examination dated April. FINDINGS:The elba st composition is composed of scattered fibroglandular densities. There are no masses or suspicious microcalcifications. No other significant abnormalities are identified. There has been nosignificant change since the prior study. IMPRESSION:Normal bilateral screening mammogram. One year follow-up recommended. (A) ASSESSMENT CATEGORY:BIRADS Category 2: Benign finding(s). A letter regarding these r esultswill be sent to the patient by the facility within 30 days. Approximately 10% of breast cancers are not detected by mammography. Anormal mammogram should not delay biopsy of a clinically suspicio usabnormality. Dictated on 07/06/11 0904 by Franco Bryan MDranscribed on 07/06/11 1031 by ITS IMPORTSign by Constantino Bryan MD on 07/06/11 103 Sign by: Constantino Bryan MD 04-Sep-20118:57 CBC WITH MANUAL DIFF Comments: PATIENT WAS FASTINGPERFORMED BY: [facility]6370 [facility] [id number] Information: [id number] ([id number]) Immature Grans (Abs) 0.0 {x10E3/uL} (Normal) Range: 0.0-0.1 Immature Granulocytes 0 % (Normal) Range: 0-2 Baso (Absolute) 0.1 {x10E3/uL} (Normal) Range: 0.0-0.2 Eos (Absolute) 0.1 {x10E3/uL} (Normal) Range: 0.0-0.4 Monocytes(Absolute) 0.3 {x10E3/uL} (Normal) Range: 0.1-1.0 Lymphs (Absolute) 1.7 {x10E3/uL} (Normal) Range: 0.7-4.5 Neutrophils (Absolute) 2.2 {x10E3/uL} (Normal) Range: 1.8-7.8 Basos 1 % (Normal) Range: 0-3 Eos 3 % (Normal) Range: 0-7 Monocytes 7 % (Normal) Range: 4-13 Lymphs 39 % (Normal) Range: 14-46 Neutrophils 50 % (Normal) Range: 40-74 Platelets 199 {x10E3/uL} (Normal) Range: 140-415 RDW 13.1 % (Normal) Range: 11.7-15.0 MCHC 33.5 g/dL (Normal) Range: 32.0-36.0 MCH 29.8 pg (Normal) Range: 27.0-34.0 MCV 89 fL (Normal) Range: 80-98 Hematocrit 43.9 % (Normal) Range: 34.0-44.0 Hemoglobin 14.7 g/dL (Normal) Range: 11.5-15.0 RBC 4.93 {x10E6/uL} (Normal) Range: 3.80-5.10 WBC 4.4 {x10E3/uL} (Normal) Range: 4.0-10.5 04-Sep-20118:57 METABOLIC PANEL, COMPREHENSIVE Comments: PATIENT WAS FASTINGPERFORMED BY: LabCoAnn Klein Forensic CenterRbqbbc0324 [facility] [id number] ([id number]) ALT (SGPT) 55 [iU]/L (Abnormal) Range: 0-40 AST (SGOT) 31 [iU]/L (Normal) Range: 0-40 Alkaline Phosphatase, S 76 [iU]/L (Normal) Range: 25-165 Bilirubin, Total 0.4 mg/dL (Normal) Range: 0.0-1.2 A/G Ratio 1.9 (Normal) Range: 1.1-2.5 Globulin, Total 2.2 g/dL (Normal) Range: 1.5-4.5 Albumin, Serum 4.2 g/dL (Normal) Range: 3.5-4.8 Protein, Total, Serum 6.4 g/dL (Normal) Range: 6.0-8.5 Calcium, Serum 9.6 mg/dL (Normal) Range: 8.6-10.2 Carbon Dioxide, Total 26 mmol/L (Normal) Range: 20-32 Chloride, Serum 105 mmol/L (Normal) Range: 97-108 Potassium, Serum 4.5 mmol/L (Normal) Range: 3.5-5.2 Sodium, Serum 142 mmol/L (Normal) Range: 134-144 BUN/Creatinine Ratio 22 (Normal) Range: 11-26 eGFR If Africn Am 76 mL/min/1.73 (Normal) Comments: Note: A persistent eGFR <60 mL/min/1.73 m2 (3 months or more) mayindicate chronic kidney disease. An eGFR >59 mL/min/1.73 m2 with anelevated urine protein also may indicate chronic kidney disease.Calculated using CKD-EPI formula. eGFR If NonAfricn Am 66 mL/min/1.73 (Normal) Creatinine, Serum 0.89 mg/dL (Normal) Range: 0.57-1.00 BUN 20 mg/dL (Normal) Range: 8-27 Glucose, Serum 93 mg/dL (Normal) Range: 65-99 04-Sep-20118:57 Vitamin D Hydroxy (42064) Comments: PATIENT WAS FASTINGPERFORMED BY: [facility]6370 [facility] [id number] Vitamin D, 25-Hydroxy 49.4 ng/mL (Normal) Range: 30.0-100.0 Comments: Vitamin D deficiency has been defined by the [place] of[place]icine and an Endocrine Society practice guideline as alevel of serum 25-OH vitamin D less than 20 ng/mL (1,2).The Endocrine Society went on to further define vitamin Dinsufficiency as a level between 21 and 29 ng/mL (2).1. IOM ([place] of Medicine). 2011. Dietary reference intakes for calcium and D. [place]: The National Academies Press.2. Mayur MF, Scar LAWRENCE, Claribel CAMP, et al. Evaluation, treatment, and prevention of vitamin D deficiency: an Endocrine Society clinical practice guideline. JCEM. 2010; 96(7):1911-30. :57 LIPID PANEL (32307) Comments: PATIENT WAS FASTINGPERFORMED BY: theRightAPI70 [facility] [id number] LDL/HDL Ratio 3.0 {ratio_units} (Normal) Range: 0.0-3.2 LDL Cholesterol Calc 102 mg/dL (Abnormal) Range: 0-99 VLDL Cholesterol Celso 18 mg/dL (Normal) Range: 5-40 HDL Cholesterol 34 mg/dL (Abnormal) Comments: According to ATP-III Guidelines, HDL-C >59 mg/dL is considered anegative risk factor for CHD. Triglycerides 91 mg/dL (Normal) Range: 0-149 Cholesterol, Total 154 mg/dL (Normal) Range: 100-199 :38 HEPATIC FUNCTION PANEL Comments: PATIENT WAS FASTINGPERFORMED BY: theRightAPI70 [facility] [id number] Information: [id number] (61443) ALT (SGPT) 57 [iU]/L (Abnormal) Range: 0-40 Alkaline Phosphatase, S 73 [iU]/L (Normal) Range: 25-165 AST (SGOT) 37 [iU]/L (Normal) Range: 0-40 Bilirubin, Direct 0.12 mg/dL (Normal) Range: 0.00-0.40 Albumin, Serum 4.7 g/dL (Normal) Range: 3.5-4.8 Bilirubin, Total 0.6 mg/dL (Normal) Range: 0.0-1.2 Protein, Total, Serum 7.2 g/dL (Normal) Range: 6.0-8.5 :38 LIPID PANEL (86160) Comments: PATIENT WAS FASTINGPERFORMED BY: theRightAPI70 [facility] [id number] LDL/HDL Ratio 3.4 {ratio_units} (Abnormal) Range: 0.0-3.2 LDL Cholesterol Calc 139 mg/dL (Abnormal) Range: 0-99 VLDL Cholesterol Celso 20 mg/dL (Normal) Range: 5-40 HDL Cholesterol 41 mg/dL (Normal) Comments: According to ATP-III Guidelines, HDL-C >59 mg/dL is considered anegative risk factor for CHD. Triglycerides 99 mg/dL (Normal) Range: 0-149 Cholesterol, Total 200 mg/dL (Abnormal) Range: 100-199 68-Rny-611566:33 Vitamin D Hydroxy (92934) Comments: PATIENT NOT FASTINGPERFORMED BY: Thucy Pelenz0747 [facility] [id number] Vitamin D, 25-Hydroxy 42.6 ng/mL (Normal) Range: 32.0-100.0 Comments: Effective June 19, 2011 Vitamin D, 25-Hydroxy reference intervals will be changing to 30-100. .Recent studies consider the lower li vince of 32.0 ng/mL to be athreshold for optimal health.Kamari ALLEN. J Nutr. 2004;135(2):317-22. 02-Oxt-902613:33 CBC WITH MANUAL DIFF Comments: PATIENT NOT FASTINGPERFORMED BY: Thucy Loldvu8667 [facility] [id number] Information: [id number] , NO DRAW FEE ([id number]) Immature Grans (Abs) 0.0 {x10E3/uL} (Normal) Range: 0.0-0.1 Immature Granulocytes 0 % (Normal) Range: 0-2 Baso (Absolute) 0.0 {x10E3/uL} (Normal) Range: 0.0-0.2 Eos (Absolute) 0.1 {x10E3/uL} (Normal) Range: 0.0-0.4 Monocytes(Absolute) 0.2 {x10E3/uL} (Normal) Range: 0.1-1.0 Lymphs (Absolute) 1.6 {x10E3/uL} (Normal) Range: 0.7-4.5 Neutrophils (Absolute) 2.7 {x10E3/uL} (Normal) Range: 1.8-7.8 Basos 0 % (Normal) Range: 0-3 Eos 2 % (Normal) Range: 0-7 Monocytes 5 % (Normal) Range: 4-13 Lymphs 35 % (Normal) Range: 14-46 Neutrophils 58 % (Normal) Range: 40-74 Platelets 185 {x10E3/uL} (Normal) Range: 140-415 RDW 12.8 % (Normal) Range: 11.7-15.0 MCHC 33.3 g/dL (Normal) Range: 32.0-36.0 MCH 29.7 pg (Normal) Range: 27.0-34.0 MCV 89 fL (Normal) Range: 80-98 Hematocrit 43.9 % (Normal) Range: 34.0-44.0 Hemoglobin 14.6 g/dL (Normal) Range: 11.5-15.0 RBC 4.92 {x10E6/uL} (Normal) Range: 3.80-5.10 WBC 4.6 {x10E3/uL} (Normal) Range: 4.0-10.5 7-Fci-357730:10 Metabolic Panel, Basic ([id number]) Comments: PATIENT NOT FASTINGPERFORMED BY: LabCoAnn [facility] Fore[facility] CenterTaqwcl4893 [facility] [id number] Calcium, Serum 9.6 mg/dL (Normal) Range: 8.6-10.2 Carbon Dioxide, Total 23 mmol/L (Normal) Range: 20-32 Chloride, Serum 104 mmol/L (Normal) Range: 97-108 BUN/Creatinine Ratio 25 (Normal) Range: 11-26 Potassium, Serum 4.0 mmol/L (Normal) Range: 3.5-5.2 Sodium, Serum 141 mmol/L (Normal) Range: 135-145 Creatinine, Serum 0.92 mg/dL (Normal) Range: 0.57-1.00 eGFR If Africn Am 73 mL/min/1.73 (Normal) Comments: Note: A persistent eGFR <60 mL/min/1.73 m2 (3 months or more) mayindicate chronic kidney disease. An eGFR >59 mL/min/1.73 m2 with anelevated urine protein also may indicate chronic kidney disease.Calculated using CKD-EPI formula. eGFR If NonAfricn Am 63 mL/min/1.73 (Normal) BUN 23 mg/dL (Normal) Range: 8-27 Glucose, Serum 86 mg/dL (Normal) Range: 65-99 1-Rrd-552895:10 CBC with manual diff Comments: PATIENT NOT FASTINGPERFORMED BY: LabCoAnn [facility] Forensic CenterKsiszh8685 [facility] [id number] Information: [id number] (67475) Baso (Absolute) 0.0 {x10E3/uL} (Normal) Range: 0.0-0.2 Immature Grans (Abs) 0.0 {x10E3/uL} (Normal) Range: 0.0-0.1 Immature Granulocytes 0 % (Normal) Range: 0-2 Comments: Please note reference interval change Eos (Absolute) 0.1 {x10E3/uL} (Normal) Range: 0.0-0.4 Lymphs (Absolute) 1.7 {x10E3/uL} (Normal) Range: 0.7-4.5 Monocytes(Absolute) 0.3 {x10E3/uL} (Normal) Range: 0.1-1.0 Neutrophils (Absolute) 1.7 {x10E3/uL} (Abnormal) Range: 1.8-7.8 Basos 1 % (Normal) Range: 0-3 Eos 3 % (Normal) Range: 0-7 Monocytes 7 % (Normal) Range: 4-13 Lymphs 44 % (Normal) Range: 14-46 Neutrophils 45 % (Normal) Range: 40-74 MCH 30.2 pg (Normal) Range: 27.0-34.0 MCHC 34.0 g/dL (Normal) Range: 32.0-36.0 Platelets 176 {x10E3/uL} (Normal) Range: 140-415 RDW 12.7 % (Normal) Range: 11.7-15.0 MCV 89 fL (Normal) Range: 80-98 Hematocrit 42.3 % (Normal) Range: 34.0-44.0 Hemoglobin 14.4 g/dL (Normal) Range: 11.5-15.0 RBC 4.77 {x10E6/uL} (Normal) Range: 3.80-5.10 WBC 3.9 {x10E3/uL} (Abnormal) Range: 4.0-10.5 :07 LIPID PANEL (87632) Comments: PATIENT WAS FASTINGPERFORMED BY: ThucyAnn [facility] Forensic CenterYgalju1903 [facility] [id number] LDL/HDL Ratio 6.9 {ratio_units} (Abnormal) Range: 0.0-3.2 LDL Cholesterol Calc 254 mg/dL (Abnormal) Range: 0-99 VLDL Cholesterol Celso 29 mg/dL (Normal) Range: 5-40 HDL Cholesterol 37 mg/dL (Abnormal) Comments: According to ATP-III Guidelines, HDL-C >59 mg/dL is considered anegative risk factor for CHD. Cholesterol, Total 320 mg/dL (Abnormal) Range: 100-199 Triglycerides 144 mg/dL (Normal) Range: 0-149 :07 Vitamin D Hydroxy (88664) Comments: PATIENT WAS FASTINGPERFORMED BY: ThucyAnn [facility] Forensic CenterPdhxle2144 [facility] [id number] Vitamin D, 25-Hydroxy 27.8 ng/mL (Abnormal) Range: 32.0-100.0 Comments: Recent studies consider the lower limit of 32.0 ng/mL to be athreshold for optimal health.Kamari ALLEN. J Nutr. 2004;135(2):317-22. :07 METABOLIC PANEL, COMPREHENSIVE Comments: PATIENT WAS FASTINGPERFORMED BY: ThucyAnn [facility] Forensic CenterTkydbo6773 [facility] [id number] ([id number]) ALT (SGPT) 61 [iU]/L (Abnormal) Range: 0-40 AST (SGOT) 42 [iU]/L (Abnormal) Range: 0-40 Alkaline Phosphatase, S 82 [iU]/L (Normal) Range: 25-165 Bilirubin, Total 0.7 mg/dL (Normal) Range: 0.0-1.2 A/G Ratio 1.9 (Normal) Range: 1.1-2.5 Globulin, Total 2.5 g/dL (Normal) Range: 1.5-4.5 Albumin, Serum 4.8 g/dL (Normal) Range: 3.5-4.8 Protein, Total, Serum 7.3 g/dL (Normal) Range: 6.0-8.5 Calcium, Serum 9.6 mg/dL (Normal) Range: 8.6-10.2 Carbon Dioxide, Total 25 mmol/L (Normal) Range: 20-32 Chloride, Serum 103 mmol/L (Normal) Range: 97-108 Potassium, Serum 4.6 mmol/L (Normal) Range: 3.5-5.2 Sodium, Serum 141 mmol/L (Normal) Range: 135-145 BUN/Creatinine Ratio 17 (Normal) Range: 11-26 eGFR If Africn Am 75 mL/min/1.73 (Normal) Comments: Note: A persistent eGFR <60 mL/min/1.73 m2 (3 months or more) mayindicate chronic kidney disease. An eGFR >59 mL/min/1.73 m2 with anelevated urine protein also may indicate chronic kidney disease.Calculated using CKD-EPI formula. eGFR If NonAfricn Am 65 mL/min/1.73 (Normal) Creatinine, Serum 0.90 mg/dL (Normal) Range: 0.57-1.00 BUN 15 mg/dL (Normal) Range: 8-27 Glucose, Serum 77 mg/dL (Normal) Range: 65-99 35-Bcc-52253:07 CBC WITH MANUAL DIFF Comments: PATIENT WAS FASTINGPERFORMED BY: LabCoAnn [facility] CenterKdgjzp8622 [facility] [id number] Information: [id number] ([id number]) Immature Grans (Abs) 0.0 {x10E3/uL} (Normal) Range: 0.0-0.1 Immature Granulocytes 0 % (Normal) Range: 0-2 Comments: Please note reference interval change Baso (Absolute) 0.0 {x10E3/uL} (Normal) Range: 0.0-0.2 Eos (Absolute) 0.1 {x10E3/uL} (Normal) Range: 0.0-0.4 Monocytes(Absolute) 0.3 {x10E3/uL} (Normal) Range: 0.1-1.0 Lymphs (Absolute) 1.5 {x10E3/uL} (Normal) Range: 0.7-4.5 Neutrophils (Absolute) 2.2 {x10E3/uL} (Normal) Range: 1.8-7.8 Basos 1 % (Normal) Range: 0-3 Eos 3 % (Normal) Range: 0-7 Monocytes 7 % (Normal) Range: 4-13 Lymphs 36 % (Normal) Range: 14-46 Neutrophils 53 % (Normal) Range: 40-74 Platelets 189 {x10E3/uL} (Normal) Range: 140-415 RDW 12.9 % (Normal) Range: 11.7-15.0 MCHC 33.3 g/dL (Normal) Range: 32.0-36.0 MCH 30.5 pg (Normal) Range: 27.0-34.0 MCV 92 fL (Normal) Range: 80-98 Hematocrit 48.6 % (Abnormal) Range: 34.0-44.0 Hemoglobin 16.2 g/dL (Abnormal) Range: 11.5-15.0 RBC 5.31 {x10E6/uL} (Abnormal) Range: 3.80-5.10 WBC 4.1 {x10E3/uL} (Normal) Range: 4.0-10.5 :57 Vitamin D Hydroxy (08283) Comments: PATIENT WAS FASTINGPERFORMED BY: [facility] [id number] Vitamin D, 25-Hydroxy 62.8 ng/mL (Normal) Range: 32.0-100.0 Comments: Recent studies consider the lower limit of 32.0 ng/mL to be athreshold for optimal health.Kamari ALLEN. J Nutr. 2004;135(2):317-22. :57 LIPID PANEL (22198) Comments: PATIENT WAS FASTINGPERFORMED BY: theRightAPI70 [facility] [id number] HDL Cholesterol 39 mg/dL (Abnormal) Comments: According to ATP-III Guidelines, HDL-C >59 mg/dL is considered anegative risk factor for CHD. LDL Cholesterol Calc 121 mg/dL (Abnormal) Range: 0-99 LDL/HDL Ratio 3.1 {ratio_units} (Normal) Range: 0.0-3.2 VLDL Cholesterol Celso 23 mg/dL (Normal) Range: 5-40 Cholesterol, Total 183 mg/dL (Normal) Range: 100-199 Triglycerides 116 mg/dL (Normal) Range: 0-149 :57 METABOLIC PANEL, COMPREHENSIVE Comments: PATIENT WAS FASTINGPERFORMED BY: [employer] [facility] [id number] ([id number]) Alkaline Phosphatase, S 74 [iU]/L (Normal) Range: 25-165 ALT (SGPT) 59 [iU]/L (Abnormal) Range: 0-40 AST (SGOT) 40 [iU]/L (Normal) Range: 0-40 A/G Ratio 2.1 (Normal) Range: 1.1-2.5 Albumin, Serum 4.8 g/dL (Normal) Range: 3.6-4.8 Bilirubin, Total 0.5 mg/dL (Normal) Range: 0.0-1.2 Globulin, Total 2.3 g/dL (Normal) Range: 1.5-4.5 Protein, Total, Serum 7.1 g/dL (Normal) Range: 6.0-8.5 Calcium, Serum 9.4 mg/dL (Normal) Range: 8.6-10.2 Carbon Dioxide, Total 21 mmol/L (Normal) Range: 20-32 Chloride, Serum 108 mmol/L (Normal) Range: 97-108 BUN/Creatinine Ratio 15 (Normal) Range: 11-26 eGFR >59 mL/min/1.73 (Normal) eGFR AfricanAmerican >59 mL/min/1.73 Comments: Note: Persistent reduction for 3 months or more in an eGFR<60 mL/min/1.73 m2 defines CKD. Patients with eGFR values>/=60 mL/min/1.73 m2 may also have CKD if evidence of persistentproteinuria is (Normal) present. Additional information may be found [email or web address]. Potassium, Serum 4.5 mmol/L (Normal) Range: 3.5-5.2 Sodium, Serum 144 mmol/L (Normal) Range: 135-145 BUN 13 mg/dL (Normal) Range: 8-27 Creatinine, Serum 0.87 mg/dL (Normal) Range: 0.57-1.00 Glucose, Serum 86 mg/dL (Normal) Range: 65-99 03-Oct-20108:57 CBC WITH MANUAL DIFF Comments: PATIENT WAS FASTINGPERFORMED BY: [facility] Aqlcds0434 [facility] [id number] Information: [id number] ([id number]) Immature Grans (Abs) 0.0 {x10E3/uL} (Normal) Range: 0.0-0.1 Immature Granulocytes 0 % (Normal) Range: 0-1 Baso (Absolute) 0.0 {x10E3/uL} (Normal) Range: 0.0-0.2 Eos (Absolute) 0.2 {x10E3/uL} (Normal) Range: 0.0-0.4 Lymphs (Absolute) 1.4 {x10E3/uL} (Normal) Range: 0.7-4.5 Monocytes(Absolute) 0.3 {x10E3/uL} (Normal) Range: 0.1-1.0 Neutrophils (Absolute) 2.1 {x10E3/uL} (Normal) Range: 1.8-7.8 Basos 1 % (Normal) Range: 0-3 Eos 5 % (Normal) Range: 0-7 Monocytes 7 % (Normal) Range: 4-13 Lymphs 35 % (Normal) Range: 14-46 Neutrophils 52 % (Normal) Range: 40-74 MCHC 33.8 g/dL (Normal) Range: 32.0-36.0 Platelets 163 {x10E3/uL} (Normal) Range: 140-415 RDW 13.3 % (Normal) Range: 11.7-15.0 MCH 30.5 pg (Normal) Range: 27.0-34.0 MCV 90 fL (Normal) Range: 80-98 Hematocrit 46.1 % (Abnormal) Range: 34.0-44.0 Hemoglobin 15.6 g/dL (Abnormal) Range: 11.5-15.0 RBC 5.11 {x10E6/uL} (Abnormal) Range: 3.80-5.10 WBC 4.0 {x10E3/uL} (Normal) Range: 4.0-10.5 02-May-20108:39 BILAT [facility] DIGITAL & CAD Radiology Report See Note (Normal) Comments: Exam Number: [id number] AMMOGRAPHY - BILATERAL SCREENING INDICATION:Routine annual screening examination. PERTINENT HISTORY:Non-contributory. TECHNIQUE:Digital examination. Mediolateral oblique (MLO) an d craniocaudad(CC) views of both breasts were obtained. CAD was performed on thisstudy. COMPARISON:February 12, 2008 and April 16, 2009 FINDINGS:The breast composition is composed of scattered fibrogla ndulardensities. There are no masses or suspicious microcalcifications. No other significant abnormalities are identified. IMPRESSION:Normal bilateral screening mammogram. Yearly follow-up recommended. ASSESSMENT CATEGORY:Category 1: Negative Approximately 10% of breast cancers are not detected by mammography.A normal mammogram should not delay biopsy of a clinicallysuspicious abnormality.This adden dum is being created for the purpose of attaching a ResultCode to this exam.ADDENDUM: [id number] HPBI/MDS Reported By: LEANN CHAUDHARI M.D. :49 Vitamin D Hydroxy (70069) Comments: PATIENT NOT FASTINGPERFORMED BY: [employer]6370 [facility] CorporationAt[facility] [id number] Vitamin D, 25-Hydroxy 48.8 ng/mL (Normal) Range: 32.0-100.0 Comments: Recent studies consider the lower limit of 32.0 ng/mL to be athreshold for optimal health.Kamari ALLEN. J Nutr. 2004;135(2):317-22. :49 LIPID PANEL (89915) Comments: PATIENT NOT FASTINGPERFORMED BY: [employer]6370 [facility] CorporationAt[facility] [id number] LDL Cholesterol Calc 136 mg/dL (Abnormal) Range: 0-99 LDL/HDL Ratio 3.7 {ratio_units} (Abnormal) Range: 0.0-3.2 HDL Cholesterol 37 mg/dL (Abnormal) Comments: According to ATP-III Guidelines, HDL-C >59 mg/dL is considered anegative risk factor for CHD. VLDL Cholesterol Celso 22 mg/dL (Normal) Range: 5-40 Cholesterol, Total 195 mg/dL (Normal) Range: 100-199 Triglycerides 111 mg/dL (Normal) Range: 0-149 :49 METABOLIC PANEL, COMPREHENSIVE Comments: PATIENT NOT FASTINGPERFORMED BY: [employer] [facility] [employer] [id number] ([id number]) Alkaline Phosphatase, S 75 [iU]/L (Normal) Range: 25-165 ALT (SGPT) 63 [iU]/L (Abnormal) Range: 0-40 AST (SGOT) 43 [iU]/L (Abnormal) Range: 0-40 A/G Ratio 2.0 (Normal) Range: 1.1-2.5 Bilirubin, Total 0.5 mg/dL (Normal) Range: 0.0-1.2 Globulin, Total 2.3 g/dL (Normal) Range: 1.5-4.5 Albumin, Serum 4.6 g/dL (Normal) Range: 3.6-4.8 Calcium, Serum 9.2 mg/dL (Normal) Range: 8.6-10.2 Protein, Total, Serum 6.9 g/dL (Normal) Range: 6.0-8.5 Carbon Dioxide, Total 24 mmol/L (Normal) Range: 20-32 Chloride, Serum 105 mmol/L (Normal) Range: 97-108 Potassium, Serum 4.2 mmol/L (Normal) Range: 3.5-5.2 BUN/Creatinine Ratio 23 (Normal) Range: 8-27 eGFR AfricanAmerican >59 mL/min/1.73 Comments: Note: Persistent reduction for 3 months or more in an eGFR<60 mL/min/1.73 m2 defines CKD. Patients with eGFR values>/=60 mL/min/1.73 m2 may also have CKD if evidence of persistentproteinuria is (Normal) present. Additional information may be found [email or web address]. Sodium, Serum 142 mmol/L (Normal) Range: 135-145 BUN 21 mg/dL (Normal) Range: 5-26 Creatinine, Serum 0.93 mg/dL (Normal) Range: 0.57-1.00 eGFR >59 mL/min/1.73 (Normal) Glucose, Serum 88 mg/dL (Normal) Range: 65-99 [id number] CBC WITH MANUAL DIFF Comments: PATIENT NOT FASTINGPERFORMED BY: [facility] [id number] [place] [facility] [id number] Information: [id number] ([id number]) Immature Grans (Abs) 0.0 {x10E3/uL} (Normal) Range: 0.0-0.1 Baso (Absolute) 0.0 {x10E3/uL} (Normal) Range: 0.0-0.2 Eos (Absolute) 0.1 {x10E3/uL} (Normal) Range: 0.0-0.4 Immature Granulocytes 0 % (Normal) Range: 0-1 Monocytes(Absolute) 0.3 {x10E3/uL} (Normal) Range: 0.1-1.0 Lymphs (Absolute) 1.4 {x10E3/uL} (Normal) Range: 0.7-4.5 Neutrophils (Absolute) 1.9 {x10E3/uL} (Normal) Range: 1.8-7.8 Basos 1 % (Normal) Range: 0-3 Eos 4 % (Normal) Range: 0-7 Lymphs 37 % (Normal) Range: 14-46 Monocytes 8 % (Normal) Range: 4-13 Neutrophils 50 % (Normal) Range: 40-74 Platelets 173 {x10E3/uL} (Normal) Range: 140-415 MCH 30.0 pg (Normal) Range: 27.0-34.0 MCHC 33.0 g/dL (Normal) Range: 32.0-36.0 RDW 13.3 % (Normal) Range: 11.7-15.0 Hematocrit 45.8 % (Abnormal) Range: 34.0-44.0 Hemoglobin 15.1 g/dL (Abnormal) Range: 11.5-15.0 MCV 91 fL (Normal) Range: 80-98 RBC 5.03 {x10E6/uL} (Normal) Range: 3.80-5.10 WBC 3.7 {x10E3/uL} (Abnormal) Range: 4.0-10.5 81-Yzb-57639:17 DEXA BONE DENSITY STUDY (HP) Radiology Report See Note (Normal) Comments: Exam Number: [id number] CLINICAL:This is a 69-year-old female patient with history osteopenia. EXAMINATION:DUAL ENERGY X-RAY ABSORPTIOMETRY / DEXA. TECHNIQUE:Bone Density Measurements (BMD) of lumbar spi ne and bilateral hipswere obtained using a [employer] scanner.. COMPARISON:Comparison is made with prior study dated February 12, 2008. FINDINGS: Lumbar Spine (L1-L4): g/cm2 (1.044) / T-sco re (-1.1) / Z-score(.5)Left Femur Total: g/cm2 (.908) / T-score (-.8) / Z-score (.6)Right Femur Total: g/cm2 (.912 ) / T-score (-.8) / Z- score(.6) Additional Abnormal T-Scores: None. IMPR ESSION:The patient is considered normal, as outlined above, according toWorld Health Organization (WHO) criteria. Fracture risk is low. Reference Information:The T-score is the number of standard devia tions above or below thestandard which is normal for young adults at their peak bone mineraldensity. The World Health Organization (WHO) interprets the T- scoresas follows: Above -1 Normal bone densityBetween -1 and -2.5 OsteopeniaEqual to / or below -2.5 Osteoporosis As a practical clinical guideline, osteopenia may be graded asfollows:Mild -1 through -1.5Mod erate -1.6 through -2.0Severe -2.1 through -2.4 The Z-score is the number of standard deviations above or belowage-matched controls. A Z-score of less than -1.5 would beconsidered abnormal. Refe rences:1. NIH Osteoporosis and Related Bone Diseases http://www.osteo.org2. International Society for Clinical Densitometryhttp://www.iscd.org3. National Osteoporosis Foundation http://www.nof.org Reported By: CONSTANTINO BRYAN 82-Hux-79335:23 CBC WITH MANUAL DIFF Comments: PATIENT WAS FASTINGPERFORMED BY: [facility]6370 [facility] [id number] Information: [id number] ([id number]) Immature Grans (Abs) 0.0 {x10E3/uL} (Normal) Range: 0.0-0.1 Immature Granulocytes 0 % (Normal) Range: 0-1 Baso (Absolute) 0.0 {x10E3/uL} (Normal) Range: 0.0-0.2 Eos (Absolute) 0.1 {x10E3/uL} (Normal) Range: 0.0-0.4 Lymphs (Absolute) 1.3 {x10E3/uL} (Normal) Range: 0.7-4.5 Monocytes(Absolute) 0.3 {x10E3/uL} (Normal) Range: 0.1-1.0 Neutrophils (Absolute) 1.9 {x10E3/uL} (Normal) Range: 1.8-7.8 Basos 1 % (Normal) Range: 0-3 Eos 4 % (Normal) Range: 0-7 Lymphs 35 % (Normal) Range: 14-46 Monocytes 9 % (Normal) Range: 4-13 Neutrophils 51 % (Normal) Range: 40-74 Platelets 150 {x10E3/uL} (Normal) Range: 140-415 RDW 12.2 % (Normal) Range: 11.7-15.0 MCH 30.2 pg (Normal) Range: 27.0-34.0 MCHC 35.0 g/dL (Normal) Range: 32.0-36.0 MCV 86 fL (Normal) Range: 80-98 Hematocrit 44.3 % (Abnormal) Range: 34.0-44.0 Hemoglobin 15.5 g/dL (Abnormal) Range: 11.5-15.0 RBC 5.14 {x10E6/uL} (Abnormal) Range: 3.80-5.10 WBC 3.7 {x10E3/uL} (Abnormal) Range: 4.0-10.5 :23 Vitamin D Hydroxy ([id number]) Comments: PATIENT WAS FASTINGPERFORMED BY: [employer] Yrtqat8585 [facility] [id number] Vitamin D, 25-Hydroxy 28.0 ng/mL (Abnormal) Range: 32.0-100.0 Comments: Recent studies consider the lower limit of 32.0 ng/mL to be athreshold for optimal health.Kamari LALEN. J Nutr. 2004;135(2):317-22. :23 METABOLIC PANEL, COMPREHENSIVE Comments: PATIENT WAS FASTINGPERFORMED BY: [employer] Cxnoli7393 [facility] [id number] ([id number]) Alkaline Phosphatase, S 80 [iU]/L (Normal) Range: 25-165 ALT (SGPT) 45 [iU]/L (Abnormal) Range: 0-40 AST (SGOT) 32 [iU]/L (Normal) Range: 0-40 A/G Ratio 2.3 (Normal) Range: 1.1-2.5 Albumin, Serum 4.8 g/dL (Normal) Range: 3.6-4.8 Bilirubin, Total 0.3 mg/dL (Normal) Range: 0.0-1.2 Globulin, Total 2.1 g/dL (Normal) Range: 1.5-4.5 Protein, Total, Serum 6.9 g/dL (Normal) Range: 6.0-8.5 Calcium, Serum 9.4 mg/dL (Normal) Range: 8.6-10.2 Carbon Dioxide, Total 23 mmol/L (Normal) Range: 20-32 Chloride, Serum 107 mmol/L (Normal) Range: 97-108 Potassium, Serum 4.6 mmol/L (Normal) Range: 3.5-5.2 BUN/Creatinine Ratio 22 (Normal) Range: 8-27 eGFR AfricanAmerican >59 mL/min/1.73 Comments: Note: Persistent reduction for 3 months or more in an eGFR<60 mL/min/1.73 m2 defines CKD. Patients with eGFR values>/=60 mL/min/1.73 m2 may also have CKD if evidence of persistentproteinuria is (Normal) present. Additional information may be found [email or web address]. Sodium, Serum 143 mmol/L (Normal) Range: 135-145 BUN 19 mg/dL (Normal) Range: 5-26 Creatinine, Serum 0.86 mg/dL (Normal) Range: 0.57-1.00 eGFR >59 mL/min/1.73 (Normal) Glucose, Serum 92 mg/dL (Normal) Range: 65-99 :23 LIPID PANEL ([id number]) Comments: PATIENT WAS FASTINGPERFORMED BY: theRightAPI70 [facility] CorporationAt[facility]ly [id number] HDL Cholesterol 39 mg/dL (Abnormal) Comments: According to ATP-III Guidelines, HDL-C >59 mg/dL is considered anegative risk factor for CHD. LDL Cholesterol Calc 130 mg/dL (Abnormal) Range: 0-99 LDL/HDL Ratio 3.3 {ratio_units} (Abnormal) Range: 0.0-3.2 VLDL Cholesterol Celso 26 mg/dL (Normal) Range: 5-40 Triglycerides 129 mg/dL (Normal) Range: 0-149 Cholesterol, Total 195 mg/dL (Normal) Range: 100-199 :34 METABOLIC PANEL, COMPREHENSIVE Comments: PATIENT WAS FASTINGPERFORMED BY: DroneCastAt[facility] Health [facility] [id number] ([id number]) Alkaline Phosphatase, S 83 [iU]/L (Normal) Range: 25-165 ALT (SGPT) 48 [iU]/L (Abnormal) Range: 0-40 AST (SGOT) 35 [iU]/L (Normal) Range: 0-40 Bilirubin, Total 0.4 mg/dL (Normal) Range: 0.1-1.2 A/G Ratio 1.8 (Normal) Range: 1.1-2.5 Albumin, Serum 4.7 g/dL (Normal) Range: 3.6-4.8 Globulin, Total 2.6 g/dL (Normal) Range: 1.5-4.5 Protein, Total, Serum 7.3 g/dL (Normal) Range: 6.0-8.5 Calcium, Serum 9.7 mg/dL (Normal) Range: 8.6-10.2 Carbon Dioxide, Total 25 mmol/L (Normal) Range: 20-32 Chloride, Serum 105 mmol/L (Normal) Range: 97-108 BUN/Creatinine Ratio 17 (Normal) Range: 8-27 eGFR AfricanAmerican >59 mL/min/1.73 Comments: Note: Persistent reduction for 3 months or more in an eGFR<60 mL/min/1.73 m2 defines CKD. Patients with eGFR values>/=60 mL/min/1.73 m2 may also have CKD if evidence of persistentproteinuria is (Normal) present. Additional information may be found [email or web address]. Potassium, Serum 4.7 mmol/L (Normal) Range: 3.5-5.2 Sodium, Serum 143 mmol/L (Normal) Range: 135-145 Creatinine, Serum 0.89 mg/dL (Normal) Range: 0.57-1.00 eGFR >59 mL/min/1.73 (Normal) BUN 15 mg/dL (Normal) Range: 5-26 Glucose, Serum 87 mg/dL (Normal) Range: 65-99 74-Wqh-38160:34 CBC WITH MANUAL DIFF Comments: PATIENT WAS FASTINGPERFORMED BY: [facility] Miepad4287 [facility] [id number] Information: [id number] ([id number]) Baso (Absolute) 0.0 {x10E3/uL} (Normal) Range: 0.0-0.2 Eos (Absolute) 0.1 {x10E3/uL} (Normal) Range: 0.0-0.4 Lymphs (Absolute) 1.2 {x10E3/uL} (Normal) Range: 0.7-4.5 Monocytes(Absolute) 0.2 {x10E3/uL} (Normal) Range: 0.1-1.0 Neutrophils (Absolute) 2.0 {x10E3/uL} (Normal) Range: 1.8-7.8 Basos 0 % (Normal) Range: 0-3 Eos 2 % (Normal) Range: 0-7 Lymphs 34 % (Normal) Range: 14-46 Monocytes 6 % (Normal) Range: 4-13 Neutrophils 58 % (Normal) Range: 40-74 Platelets 195 {x10E3/uL} (Normal) Range: 140-415 RDW 12.5 % (Normal) Range: 11.7-15.0 MCH 31.1 pg (Normal) Range: 27.0-34.0 MCHC 34.6 g/dL (Normal) Range: 32.0-36.0 Hematocrit 43.6 % (Normal) Range: 34.0-44.0 Hemoglobin 15.1 g/dL (Abnormal) Range: 11.5-15.0 MCV 90 fL (Normal) Range: 80-98 RBC 4.84 {x10E6/uL} (Normal) Range: 3.80-5.10 WBC 3.5 {x10E3/uL} (Abnormal) Range: 4.0-10.5 :34 HEPATIC FUNCTION PANEL Comments: PATIENT WAS FASTINGPERFORMED BY: LabCoAnn Klein Forensic CenterNzohgu7395 [facility] [id number] ([id number]) Bilirubin, Direct 0.11 mg/dL (Normal) Range: 0.00-0.40 :34 LIPID PANEL ([id number]) Comments: PATIENT WAS FASTINGPERFORMED BY: [facility] Jsxczq9537 [facility] [id number] HDL Cholesterol 39 mg/dL (Abnormal) Comments: According to ATP-III Guidelines, HDL-C >59 mg/dL is considered anegative risk factor for CHD. LDL Cholesterol Calc 139 mg/dL (Abnormal) Range: 0-99 LDL/HDL Ratio 3.6 {ratio_units} (Abnormal) Range: 0.0-3.2 Triglycerides 101 mg/dL (Normal) Range: 0-149 VLDL Cholesterol Celso 20 mg/dL (Normal) Range: 5-40 Cholesterol, Total 198 mg/dL (Normal) Range: 100-199 :13 CBC With Differential/Platelet Comments: PATIENT WAS FASTINGPERFORMED BY: [employer]70 [facility] [id number] Baso (Absolute) 0.0 {x10E3/uL} (Normal) Range: 0.0-0.2 Basos 0 % (Normal) Range: 0-3 Eos 2 % (Normal) Range: 0-7 Eos (Absolute) 0.1 {x10E3/uL} (Normal) Range: 0.0-0.4 Hematocrit 44.9 % (Abnormal) Range: 34.0-44.0 Hemoglobin 15.0 g/dL (Normal) Range: 11.5-15.0 Lymphs 33 % (Normal) Range: 14-46 Lymphs (Absolute) 1.1 {x10E3/uL} (Normal) Range: 0.7-4.5 MCH 30.6 pg (Normal) Range: 27.0-34.0 MCHC 33.3 g/dL (Normal) Range: 32.0-36.0 MCV 92 fL (Normal) Range: 80-98 Monocytes 6 % (Normal) Range: 4-13 Monocytes(Absolute) 0.2 {x10E3/uL} (Normal) Range: 0.1-1.0 Neutrophils 59 % (Normal) Range: 40-74 Neutrophils (Absolute) 1.9 {x10E3/uL} (Normal) Range: 1.8-7.8 Platelets 164 {x10E3/uL} (Normal) Range: 140-415 RBC 4.89 {x10E6/uL} (Normal) Range: 3.80-5.10 RDW 13.1 % (Normal) Range: 11.7-15.0 WBC 3.3 {x10E3/uL} (Abnormal) Range: 4.0-10.5 :13 Comp. Metabolic Panel (14) Comments: PATIENT WAS FASTINGPERFORMED BY: [facility] [id number] A/G Ratio 2.0 (Normal) Range: 1.1-2.5 Albumin, Serum 4.7 g/dL (Normal) Range: 3.6-4.8 Alkaline Phosphatase, S 77 [iU]/L (Normal) Range: 25-165 ALT (SGPT) 62 [iU]/L (Abnormal) Range: 0-40 AST (SGOT) 46 [iU]/L (Abnormal) Range: 0-40 Bilirubin, Total 0.5 mg/dL (Normal) Range: 0.1-1.2 BUN 16 mg/dL (Normal) Range: 5-26 BUN/Creatinine Ratio 18 (Normal) Range: 8-27 Calcium, Serum 9.8 mg/dL (Normal) Range: 8.5-10.6 Carbon Dioxide, Total 22 mmol/L (Normal) Range: 20-32 Chloride, Serum 109 mmol/L (Abnormal) Range: 97-108 Creatinine, Serum 0.91 mg/dL (Normal) Range: 0.57-1.00 eGFR >59 mL/min/1.73 (Normal) eGFR AfricanAmerican >59 mL/min/1.73 Comments: Note: Persistent reduction for 3 months or more in an eGFR<60 mL/min/1.73 m2 defines CKD. Patients with eGFR values>/=60 mL/min/1.73 m2 may also have CKD if evidence of persistentproteinuria is (Normal) present. Additional information may be found [email or web address]. Globulin, Total 2.4 g/dL (Normal) Range: 1.5-4.5 Glucose, Serum 86 mg/dL (Normal) Range: 65-99 Potassium, Serum 5.0 mmol/L (Normal) Range: 3.5-5.2 Protein, Total, Serum 7.1 g/dL (Normal) Range: 6.0-8.5 Sodium, Serum 146 mmol/L (Abnormal) Range: 135-145 6-Kzq-297409:13 Lipid Panel With LDL/HDL Comments: PATIENT WAS FASTINGPERFORMED BY: LabCoAnn [facility] Forensic CenterLmxaxw5757 [facility] [id number] Ratio Cholesterol, Total 210 mg/dL (Abnormal) Range: 100-199 HDL Cholesterol 41 mg/dL (Normal) Comments: According to ATP-III Guidelines, HDL-C >59 mg/dL is considered anegative risk factor for CHD. LDL Cholesterol Calc 146 mg/dL (Abnormal) Range: 0-99 LDL/HDL Ratio 3.6 {ratio_units} Range: 0.0-3.2 (Abnormal) Triglycerides 113 mg/dL (Normal) Range: 0-149 VLDL Cholesterol Celso 23 mg/dL (Normal) Range: 5-40 Vitamin D, 25-Hydroxy 42.5 ng/mL (Normal) Comments: PATIENT WAS FASTINGPERFORMED BY: LabCoAnn [facility] CenterQnfftx3183 [facility] [id number] :13 Range: 32.0-100.0 Comments: Recent studies consider the lower limit of 32.0 ng/mL to be athreshold for optimal health.Kamari ALLEN. J Nutr. 2004;135(2):317-22. 01-Fsd-12111:42 BILAT SCRN DIGITAL & CAD Radiology Report See Note (Normal) Comments: Exam Number: [id number] MAMMOGRAM, BILATERAL SCREENING DIGITAL AND CAD HISTORYRoutine screening. Full field digital images were obtained in mediolateral oblique andcraniocaudal projections. CAD images w ere reviewed. The current study is compared to the examinations of October 31, 2005,and February 12, 2008. There is moderately dense fibroglandular parenchyma present. There isno skin thickening or retraction , architectural distortion, or clusterof suspicious microcalcifications. There is no dominant mass orsignificant interval change seen. If there is no suspicious palpableabnormality, followup mammogram in 1 year is recommended. IMPRESSIONThere is no radiographic evidence of malignancy identified. FINAL ASSESSMENTNegative findings. BIRADS Category 1. A letter regarding these results has been sent to the patient. This interpretation was rendered by a radiologist certified under theMammography Quality Standards Act of 1992 (MQSA). The mammograms werealso examined with computer-aided detection [employer] ([employer] Reported By: LEANN CHAUDHARI M.D. 78-Spz-322858:25 SPLEEN (HP) Radiology Report See Note (Normal) Comments: Exam Number: [id number] CLINICAL:Elevated liver enzymes and polycythemia. LIMITED ABDOMINAL ULTRASOUND COMPARISON:None. FINDINGS: Images and technologist worksheet are submitted for interpretation. The examination is limited to the right upper quadrant. Normal liver size. The liver is diffusely echogenic, suggestive of fatty infiltration. No focal hepatic masses are seen. Normal gallbladder size and contour, with no wall thickening, filling defects or pericholecystic fluid. Normal caliber of the common bile duct, measuring 5 mm. Normal intrahepatic ducts with no intrahepatic biliary ductal dilata tion. Normal pancreas without focal or diffuse enlargement, and there are no cysts or calcifications. Normal visualized pancreatic duct. Normal right kidney size, contour, and echogenicity, measuring 9 .7 cm in length. Normal right renal cortex with no masses or cysts. Normal intrarenal collecting system with no renal calculi or hydronephrosis. IMPRESSION:Diffusely echogenic liver suggestive of fatt y infiltration. No focal hepatic masses or biliary dilatation. Otherwise, unremarkable right upper quadrant ultrasound. Reported By: ELSIE MCNEAL M.D. 94-Wfj-214678:24 LIVER (HP) Radiology Report See Note (Normal) Comments: Exam Number: [id number] CLINICAL:Elevated liver enzymes and polycythemia. LIMITED ABDOMINAL ULTRASOUND COMPARISON:None. FINDINGS: Images and technologist worksheet are submitted for interpretation. The examination is limited to the spleen. Normal splenic size, contour and echogenicity. The spleen measures approximately 9.5 x 4.4 x 4.0 cm. The splenic vein is patent with normal directional flow. There are no focal splenic masses. IMPRESSION:No evidence of splenomegaly. Reported By: ELSIE MCNEAL M.D. 30-Axh-55433:56 CBC With Differential/Platelet Comments: PERFORMED BY: [facility] [id number] [facility] [id number] Baso (Absolute) 0.0 {x10E3/uL} (Normal) Range: 0.0-0.2 Basos 1 % (Normal) Range: 0-3 Eos 4 % (Normal) Range: 0-7 Eos (Absolute) 0.1 {x10E3/uL} (Normal) Range: 0.0-0.4 Lymphs (Absolute) 1.1 {x10E3/uL} (Normal) Range: 0.7-4.5 Monocytes(Absolute) 0.2 {x10E3/uL} (Normal) Range: 0.1-1.0 Neutrophils (Absolute) 1.5 {x10E3/uL} (Abnormal) Range: 1.8-7.8 Hematocrit 45.6 % (Abnormal) Range: 34.0-44.0 Hemoglobin 15.3 g/dL (Abnormal) Range: 11.5-15.0 Lymphs 36 % (Normal) Range: 14-46 MCH 30.4 pg (Normal) Range: 27.0-34.0 MCHC 33.5 g/dL (Normal) Range: 32.0-36.0 MCV 91 fL (Normal) Range: 80-98 Monocytes 8 % (Normal) Range: 4-13 Neutrophils 51 % (Normal) Range: 40-74 Platelets 171 {x10E3/uL} (Normal) Range: 140-415 RBC 5.03 {x10E6/uL} (Normal) Range: 3.80-5.10 RDW 12.9 % (Normal) Range: 11.7-15.0 WBC 3.0 {x10E3/uL} (Abnormal) Range: 4.0-10.5 28-Fcp-04776:56 Comp. Metabolic Panel (14) Comments: PERFORMED BY: MUÑOZ [facility] [id number] [facility] [id number] A/G Ratio 2.0 (Normal) Range: 1.1-2.5 Albumin, Serum 4.9 g/dL (Abnormal) Range: 3.6-4.8 Alkaline Phosphatase, S 87 [iU]/L (Normal) Range: 25-165 ALT (SGPT) 64 [iU]/L (Abnormal) Range: 0-40 AST (SGOT) 56 [iU]/L (Abnormal) Range: 0-40 Bilirubin, Total 0.6 mg/dL (Normal) Range: 0.1-1.2 BUN 14 mg/dL (Normal) Range: 5-26 BUN/Creatinine Ratio 16 (Normal) Range: 8-27 Calcium, Serum 9.8 mg/dL (Normal) Range: 8.5-10.6 Carbon Dioxide, Total 24 mmol/L (Normal) Range: 20-32 Chloride, Serum 108 mmol/L (Normal) Range: 97-108 Creatinine, Serum 0.86 mg/dL (Normal) Range: 0.57-1.00 eGFR >59 mL/min/1.73 (Normal) eGFR AfricanAmerican >59 mL/min/1.73 Comments: Note: Persistent reduction for 3 months or more in an eGFR<60 mL/min/1.73 m2 defines CKD. Patients with eGFR values>/=60 mL/min/1.73 m2 may also have CKD if evidence of persistentproteinuria is (Normal) present. Additional information may be found [email or web address]. Globulin, Total 2.5 g/dL (Normal) Range: 1.5-4.5 Glucose, Serum 90 mg/dL (Normal) Range: 65-99 Potassium, Serum 4.8 mmol/L (Normal) Range: 3.5-5.2 Protein, Total, Serum 7.4 g/dL (Normal) Range: 6.0-8.5 Sodium, Serum 145 mmol/L (Normal) Range: 135-145 :56 Erythropoietin (EPO), Serum Comments: PERFORMED BY: [employer] [id number] [employer] [facility] [id number] Erythropoietin 13.2 m[iU]/mL (Normal) Range: 4.2-27.8 :56 Hepatic Function Panel (7) Comments: PERFORMED BY: [employer] [id number] [employer] [place] [employer] [facility] [id number] Bilirubin, Direct 0.15 mg/dL (Normal) Range: 0.00-0.40 :56 JAK2 V617F Mutation Detection Comments: PERFORMED BY: [employer] LRS2708[employer] [facility] [id number] JAK2 V617F mutation JAK2N (Normal) Comments: Result: NEGATIVE for the JAK2 V617F mutation. .Interpretation: The G to T nucleotide change encoding the [id number] wa s not detect detection ed. This result does not rule out the presenceof the JAK2 mutation at a level below the sensitivity of detection ofthis assay, or the presence of other mutations within JAK2 notdetected by this assay. This result does not rule out a diagnosis ofpolycythemia vera, essential thrombocythemia or idiopathicmyelofibrosis as the V617F mutation is not detected in all patientswith these disorders. .Tammie Hess, PhD, [facility] Director, Molecular Genetics [facility] [place], [place] .JAK2 is a cytoplasmic tyrosine kinase with a jackson role in signaltra nsduction from multiple hematopoietic growth factor receptors. Apoint mutation within exon 14 of the JAK2 gene ([id number]) encoding avaline to phenylalanine substitution at position 617 of the XXJ9ujgrjjn (V617F) has been identified in most patients with polycythemiavera, and in about half of those with either essential thrombocythemiaor idiopathic myelofibrosis. The V617F has also been detected,althou gh infrequently, in other myeloid disorders such as chronicmyelomonocytic leukemia and chronic neutrophilic leukemia. V617F isan acquired mutation that alters a highly conserved valine present inthe ne gative regulatory JH2 domain of the JAK2 protein and ispredicted to dysregulate kinase activity. .Methodology:Genomic DNA was purified from the provided specimen. Allele-specificPCR using fluorescent primers was used to simultaneously amplify boththe wild type and mutant alleles. Amplification products were analyzedby capillary elect rophoresis. This assay has a sensitivity to detectapproximately a 5% population of cells containing the V617F mutationin a background of non-mutant cells. .Reference:Ayesha A and Brayden RUIZ. The JAK2 V617F Tyrosine Kinase Mutationin Myeloproliferative Disorders: Status Report and ImmediateImplications for Disease Classification and Diagnosis. [facility] Jsdt7086;80(7):947-958. . LDH 221 [iU]/L Comments: PERFORMED BY: [employer] [id number] [facility] [id number] :56 (Normal) Range: 100-250 :56 Lipid Panel With LDL/HDL Comments: PERFORMED BY: [employer] [id number] [facility] [id number] Ratio Cholesterol, Total 203 mg/dL (Abnormal) Range: 100-199 HDL Cholesterol 41 mg/dL (Normal) Comments: According to ATP-III Guidelines, HDL-C >59 mg/dL is considered anegative risk factor for CHD. LDL Cholesterol Calc 134 mg/dL (Abnormal) Range: 0-99 LDL/HDL Ratio 3.3 {ratio_units} Range: 0.0-3.2 (Abnormal) Triglycerides 139 mg/dL (Normal) Range: 0-149 VLDL Cholesterol Celso 28 mg/dL (Normal) Range: 5-40 Vitamin D, 25-Hydroxy 22.3 ng/mL Comments: PERFORMED BY: WANDA [facility] [id number] [facility] [id number] :56 (Abnormal) Range: 32.0-100.0 Comments: Recent studies consider the lower limit of 32.0 ng/mL to be athreshold for optimal health.Kamari ALLEN. J Nutr. 2004;135(2):317-22. 2-Gtl-340303:06 CBCD,SMEAR DIFF CELLS COUNTED 100 (Normal) EOS 1 % (Normal) Range: 0-5 HCT 44.1 % (Normal) Range: 37-47 HGB 15.3 g/dL (Normal) Range: 12.0-16.0 LYMPH 31 % (Normal) Range: 19-41 MCH 30.7 pg (Normal) Range: 27.0-32.0 MCHC 34.6 g/dL (Normal) Range: 32-36 MCV 88.6 fL (Normal) Range: 81-99 MONOCYTE 10 % (Normal) Range: 0-10 PLT 204 K/mm3 (Normal) Range: 150-450 PLT EST SeeNote (Normal) Comments: Result: ADEQUATE RBC 4.98 {M/mm3} (Normal) Range: 4.2-5.4 RDW 12.3 % (Normal) Range: 11.6-14.6 RED CELL MORPH SeeNote {NORMAL} (Normal) Comments: Result: NORM C+C SEGS 58 % (Normal) Range: 47-70 WBC 3.7 K/mm3 (Abnormal) Range: 4.4-11.0 :06 LDH 205 U/L (Abnormal) Range: 100-190 :06 LIVER ALB 4.2 g/dL (Normal) Range: 3.4-5.0 ALK P 81 U/L (Normal) Range: 50-136 ALT 55 U/L (Normal) Range: 30-65 AST 33 U/L (Normal) Range: 15-37 D BILI 0.04 mg/dL (Normal) Range: 0.00-0.30 T BILI 0.34 mg/dL (Normal) Range: 0.00-1.00 T PROT 7.4 g/dL (Normal) Range: 6.4-8.2 07-Sep-20080:00 ABG Comments: IS THE BLOOD GAS TO BE DRAWN ON ROOM AIR?: Y ctHb 15.3 g/dL (Normal) Range: 12.0-16.0 DRAW SITE (ART) SeeNote (Normal) Comments: Result: RIGHT BRACHIAL HCT 45.0 % (Normal) Range: 39-50 P02 86 {mm_HG} (Normal) Range: 75-100 pcBASE(B) 0.3 mmol/L (Normal) pcHCO3-(P) 24.0 mmol/L (Normal) Range: 22-26 pCO2 37 {mm_Hg} (Normal) Range: 35-45 pH 7.43 (Normal) Range: 7.35-7.45 sO2 96.0 % (Normal) Range: 95-99 95-Oao-84596:48 CBC WITH MANUAL DIFF ([id number]) Comments: PATIENT WAS FASTINGClinical Information: ADD DRAW FEE [id number] PERFORMED BY: [facility]6370 [facility] [id number] Baso (Absolute) 0.0 {x10E3/uL} (Normal) Range: 0.0-0.2 Basos 0 % (Normal) Range: 0-3 Eos 2 % (Normal) Range: 0-7 Eos (Absolute) 0.1 {x10E3/uL} (Normal) Range: 0.0-0.4 Hematocrit 44.8 % (Abnormal) Range: 34.0-44.0 Hemoglobin 15.2 g/dL (Abnormal) Range: 11.5-15.0 Lymphs 24 % (Normal) Range: 14-46 Lymphs (Absolute) 0.9 {x10E3/uL} (Normal) Range: 0.7-4.5 MCH 30.1 pg (Normal) Range: 27.0-34.0 MCHC 33.9 g/dL (Normal) Range: 32.0-36.0 MCV 89 fL (Normal) Range: 80-98 Monocytes 6 % (Normal) Range: 4-13 Monocytes(Absolute) 0.2 {x10E3/uL} (Normal) Range: 0.1-1.0 Neutrophils 68 % (Normal) Range: 40-74 Neutrophils (Absolute) 2.4 {x10E3/uL} (Normal) Range: 1.8-7.8 Platelets 165 {x10E3/uL} (Normal) Range: 140-415 RBC 5.05 {x10E6/uL} (Normal) Range: 3.80-5.10 RDW 12.4 % (Normal) Range: 11.7-15.0 WBC 3.6 {x10E3/uL} (Abnormal) Range: 4.0-10.5 :48 HEPATIC FUNCTION PANEL Comments: PATIENT WAS FASTINGPERFORMED BY: [address] [id number] ([id number]) Albumin, Serum 4.7 g/dL (Normal) Range: 3.6-4.8 Alkaline Phosphatase, S 85 [iU]/L (Normal) Range: 25-165 ALT (SGPT) 45 [iU]/L (Abnormal) Range: 0-40 AST (SGOT) 32 [iU]/L (Normal) Range: 0-40 Bilirubin, Direct 0.13 mg/dL (Normal) Range: 0.00-0.40 Bilirubin, Total 0.5 mg/dL (Normal) Range: 0.1-1.2 Protein, Total, Serum 7.1 g/dL (Normal) Range: 6.0-8.5 :48 LIPID PANEL ([id number]) Comments: PATIENT WAS FASTINGPERFORMED BY: ThucyAnn [facility] Forensic CenterNthkmo8180 [facility] [id number] Cholesterol, Total 194 mg/dL (Normal) Range: 100-199 Comment SPRCS (Normal) Comments: If initial LDL-cholesterol result is >100 mg/dL, assess forrisk factors. HDL Cholesterol 35 mg/dL (Abnormal) Comments: According to ATP-III Guidelines, HDL-C >59 mg/dL is considered anegative risk factor for CHD. LDL Cholesterol Calc 133 mg/dL (Abnormal) Range: 0-99 LDL/HDL Ratio 3.8 {ratio_units} (Abnormal) Range: 0.0-3.2 Triglycerides 129 mg/dL (Normal) Range: 0-149 VLDL Cholesterol Celso 26 mg/dL (Normal) Range: 5-40 :21 Protein Electro, Random Urine Comments: PATIENT WAS FASTINGPERFORMED BY: Thucy Dfhjta8013 [facility] [id number] Albumin, U 27.1 % (Normal) Digtv-3-Xhungqrz, U 3.7 % (Normal) Nekil-3-Sditmkuf, U 25.2 % (Normal) Beta Globulin, U 28.3 % (Normal) Gamma Globulin, U 15.7 % (Normal) M-Darius, % Not Observed % (Normal) Please note: SPRCS (Normal) Comments: Protein electrophoresis scan will follow via mail or breaster. Protein,Total,Urine 7.8 mg/dL (Normal) Range: 0.0-15.0 :21 Protein Electro.,S Comments: PATIENT WAS FASTINGPERFORMED BY: Thucy Hcabbo9060 [facility] [id number] A/G Ratio 1.3 (Normal) Range: 0.7-2.0 Albumin 4.0 g/dL (Normal) Range: 3.2-5.6 Mzndb-0-Rrymiigs 0.2 g/dL (Normal) Range: 0.1-0.4 Efpic-0-Tywcibod 0.8 g/dL (Normal) Range: 0.4-1.2 Beta Globulin 1.1 g/dL (Normal) Range: 0.6-1.3 Gamma Globulin 1.0 g/dL (Normal) Range: 0.5-1.6 Globulin, Total 3.1 g/dL (Normal) Range: 2.0-4.5 M-Darius Not Observed g/dL (Normal) Please note: SPRCS (Normal) Comments: Protein electrophoresis scan will follow via mail or breaster. 88-Dsi-79860:21 VITAMIN B-12 (CYANOCOBALAMIN) Comments: PATIENT WAS FASTINGPERFORMED BY: ThucyAnn [facility]nsic CenterPmdmqg6935 [facility] [id number] ([id number]) Vitamin B12 416 pg/mL (Normal) Range: 211-911 :21 CBC WITH MANUAL DIFF ([id number]) Comments: PATIENT WAS FASTINGPERFORMED BY: ThucyAnn [facility]nsic CenterDzloyx2766 [facility] [id number] Baso (Absolute) 0.0 {x10E3/uL} (Normal) Range: 0.0-0.2 Basos 0 % (Normal) Range: 0-3 Eos 4 % (Normal) Range: 0-7 Eos (Absolute) 0.1 {x10E3/uL} (Normal) Range: 0.0-0.4 Hematocrit 44.5 % (Abnormal) Range: 34.0-44.0 Hemoglobin 15.2 g/dL (Abnormal) Range: 11.5-15.0 Lymphs 29 % (Normal) Range: 14-46 Lymphs (Absolute) 0.9 {x10E3/uL} (Normal) Range: 0.7-4.5 MCH 30.4 pg (Normal) Range: 27.0-34.0 MCHC 34.1 g/dL (Normal) Range: 32.0-36.0 MCV 89 fL (Normal) Range: 80-98 Monocytes 7 % (Normal) Range: 4-13 Monocytes(Absolute) 0.2 {x10E3/uL} (Normal) Range: 0.1-1.0 Neutrophils 60 % (Normal) Range: 40-74 Neutrophils (Absolute) 1.9 {x10E3/uL} (Normal) Range: 1.8-7.8 Platelets 188 {x10E3/uL} (Normal) Range: 140-415 RBC 4.99 {x10E6/uL} (Normal) Range: 3.80-5.10 RDW 12.7 % (Normal) Range: 11.7-15.0 WBC 3.2 {x10E3/uL} (Abnormal) Range: 4.0-10.5 15-Vub-09836:21 METABOLIC PANEL, COMPREHENSIVE Comments: PATIENT WAS FASTINGPERFORMED BY: LabCoAnn [facility] Forensic CenterJzqisl3012 [facility] [id number] ([id number]) A/G Ratio 1.8 (Normal) Range: 1.1-2.5 Albumin, Serum 4.6 g/dL (Normal) Range: 3.6-4.8 Alkaline Phosphatase, S 83 [iU]/L (Normal) Range: 25-165 ALT (SGPT) 34 [iU]/L (Normal) Range: 0-40 AST (SGOT) 28 [iU]/L (Normal) Range: 0-40 Bilirubin, Total 0.7 mg/dL (Normal) Range: 0.1-1.2 BUN 17 mg/dL (Normal) Range: 5-26 BUN/Creatinine Ratio 19 (Normal) Range: 8-27 Calcium, Serum 9.9 mg/dL (Normal) Range: 8.5-10.6 Carbon Dioxide, Total 25 mmol/L (Normal) Range: 20-32 Chloride, Serum 108 mmol/L (Normal) Range: 97-108 Creatinine, Serum 0.90 mg/dL (Normal) Range: 0.57-1.00 Globulin, Total 2.5 g/dL (Normal) Range: 1.5-4.5 Glom Filt Rate, Est >60 mL/min/1.73 Range: 60-128 (Normal) Glucose, Serum 88 mg/dL (Normal) Range: 65-99 If -French >60 mL/min/1.73 Range: 60-128 (Normal) Comments: Note: Persistent reduction for 3 months or more in an eGFR<60 mL/min/1.73 m2 defines CKD. Patients with eGFR values>/=60 mL/min/1.73 m2 may also have CKD if evidence of persistentproteinuria is present. Additional information may be found [email or web address]. Potassium, Serum 4.7 mmol/L (Normal) Range: 3.5-5.2 Protein, Total, Serum 7.1 g/dL (Normal) Range: 6.0-8.5 Sodium, Serum 143 mmol/L (Normal) Range: 135-145 12-Axl-18657:21 HEPATIC FUNCTION PANEL Comments: PATIENT WAS FASTINGPERFORMED BY: [employer]6370 [facility] [id number] ([id number]) Bilirubin, Direct 0.14 mg/dL (Normal) Range: 0.00-0.40 83-Vcc-52541:21 LIPID PANEL ([id number]) Comments: PATIENT WAS FASTINGPERFORMED BY: [employer] [facility] ToolsAsyerw8708 [facility] [id number] Cholesterol, Total 196 mg/dL (Normal) Range: 100-199 Comment [facility] (Normal) Comments: If initial LDL-cholesterol result is >100 mg/dL, assess forrisk factors. HDL Cholesterol 37 mg/dL (Abnormal) Range: 40-59 LDL Cholesterol Calc 135 mg/dL (Abnormal) Range: 0-99 LDL/HDL Ratio 3.6 {ratio_units} (Abnormal) Range: 0.0-3.2 Triglycerides 122 mg/dL (Normal) Range: 0-149 VLDL Cholesterol Celso 24 mg/dL (Normal) Range: 5-40 :41 BILAT SCRN DIGITAL & CAD Radiology Report See Note (Normal) Comments: Exam Number: [id number] MAMMOGRAM, BILATERAL SCREENING DIGITAL AND CAD HISTORYRoutine screening. Full field digital images were obtained in mediolateral oblique andcraniocaudal projections. CAD images w ere reviewed. The current study is compared to the examinations of April,,and October,, from [facility] in [place], [place]. There is moderately dense fibroglandular parenchyma present . There isno skin thickening or retraction, architectural distortion, or clusterof suspicious microcalcifications. There is no dominant mass orsignificant interval change seen. If there is no suspici ous palpableabnormality, followup mammogram in 1 year is recommended. IMPRESSIONThere is no radiographic evidence of malignancy identified. FINAL ASSESSMENTNegative. BIRADS Category 1. A letter regar ding these results has been sent to the patient. This interpretation was rendered by a radiologist certified under theMammography Quality Standards Act of 1992 (MQSA). The mammograms werealso examined with computer-aided detection software ([employer] Reported By: LEANN CHAUDHARI M.D. :40 DEXA BONE DENSITY STUDY (HP) Radiology Report See Note (Normal) Comments: Exam Number: [id number] BONE DENSITOMETRY HISTORYPostmenopausal. TECHNIQUE Bone densitometry of the lumbar spine and left hip was performed. Thebest criteria for evaluation of osteoporosis is the T- value, whichrepresents the comparison of the patient's bone mass to an expectedpeak bone mass. For most patients, the mean T-value of L1 through L4is used to evaluate the lumbar spine. Based on the [place] WorldHealth Organization classifications, the hip is evaluated by utilizingthe lower of the T-value of the total hip or the T-value of thefemoral neck. FINDINGSIn this patient, the mean T-value o f L1 through L4 is -1.6, which isin the range of osteopenia. Digital lateral view for evaluation ofvertebral deformity only demonstrates no obvious compressionfractures. The T-value of the left femoral neck is -1.4, which is inthe range of osteopenia. The T-value of the total left hip is -0.6,which is normal. IMPRESSIONThere is osteopenia of the lumbar spine and left hip. Reported By: LEANN CHAUDHARI M.D. :24 CHEST, PA AND LATERAL Radiology Report See Note (Normal) Comments: Exam Number: [id number] CERVICAL SPINE 5 VIEWS - AP, LATERAL, CONED-DOWN ODONTOID, BOTHOBLIQUES HISTORYBeing done for pain in the neck, radiating to the left arm. FINDINGSPedicles are intact. The disc s paces are well maintained. No fractures are seen. Softtissues are unremarkable. No encroachment is noted on the neuralforamina. IMPRESSIONNormal C-spine as demonstrated. PA AND LATERAL CHEST HISTOR Y Being done for occasional chest pain. FINDINGSCardiac configuration is normal. No acute infiltrate, effusion, orpneumothorax is identified. There are mild emphysematous changes andscarring in the l eft lower lung. IMPRESSIONNo acute change noted in the lungs. Reported By: BRENDAN RILEY M.D. :57 L/S SPINE,MIN 4 VIEWS Radiology Report See Note (Normal) Comments: Exam Number: [id number] LUMBAR SPINE 5 VIEWS - AP, LATERAL, CONED-DOWN L5-S1, BOTH OBLIQUES HISTORYBeing done for back pain radiating to the left hip area. FINDINGSThe pedicles are intact. What is seen of the sacroiliac joints isunremarkable. No fractures are seen. There are sclerotic changesin the facets of L4-5 and L5-S1. There is mild narrowing at the L4-5level. There is questionably a grade 1 spondylolisthesis at L4 inrelationship to 5. I do not seen any spondylolysis. IMPRESSIONMild disc disease, see above. Reported By: BRENDAN RILEY M.D. :56 CERV SPINE,MIN 4 VIEWS Radiology Report See Note (Normal) Comments: Exam Number: [id number] CERVICAL SPINE 5 VIEWS - AP, LATERAL, CONED-DOWN ODONTOID, BOTHOBLIQUES HISTORYBeing done for pain in the neck, radiating to the left arm. FINDINGSPedicles are intact. The disc s paces are well maintained. No fractures are seen. Softtissues are unremarkable. No encroachment is noted on the neuralforamina. IMPRESSIONNormal C-spine as demonstrated. PA AND LATERAL CHEST HISTOR Y Being done for occasional chest pain. FINDINGSCardiac configuration is normal. No acute infiltrate, effusion, orpneumothorax is identified. There are mild emphysematous changes andscarring in the l eft lower lung. IMPRESSIONNo acute change noted in the lungs. Reported By: BRENDAN RILEY M.D. 00-Utj-27392:31 MYOCARD PERF SPECT REST/STRESS Radiology Report See Note (Normal) Comments: Exam Number: [id number] MYOCARDIAL PERFUSION SCAN 12 millicuries of Tc99m sestamibi was injected at rest. The patientthen exercised according to the Ayo protocol for a total duration of7 m inutes attai lorena 105% of the maximum predicted heart rate at a workload of 8.5 METs. At peak exercise, 34.7 millicuries of Uh76msnwkobzpt was injected. Stress images were then obtained. Stress andrest images were reconstructed and compared in the short axis,vertical long and horizontal long axes. Gated images were alsoobtained. Review of the images demonstrate normal uptake of tracer notedin all areas of the my ocardium. The resting images similarlydemonstrate normal uptake of tracer in all areas of the myocardium. The gated ejection fraction is 77%. CONCLUSION1. Normal exercise myocardial perfusion scan at a moderate work load.2. Preserved ejection fraction. Reported By: BARI MOSLEY M.D. 59-Yhi-029664:33 TSH ([id number]) Comments: PATIENT WAS FASTINGPERFORMED BY: [employer]6370 [facility] [id number] TSH 1.738 {uIU/mL} (Normal) Range: 0.350-5.500 Comments: Adult TSH concentrations below 5.5 uIU/mL do not rule out the presence of subclinical hypothyroidism. 79-Rjo-668158:33 CBC WITH MANUAL DIFF ([id number]) Comments: PATIENT WAS FASTINGClinical Information: ADD DRAW FEE [id number] ADD J 35663 PERFORMED BY: [facility]At[facility] [id number] Baso (Absolute) 0.0 {x10E3/uL} (Normal) Range: 0.0-0.2 Basos 1 % (Normal) Range: 0-3 Eos 2 % (Normal) Range: 0-7 Eos (Absolute) 0.1 {x10E3/uL} (Normal) Range: 0.0-0.4 Hematocrit 47.7 % (Abnormal) Range: 34.0-44.0 Hemoglobin 15.9 g/dL (Abnormal) Range: 11.5-15.0 Lymphs 34 % (Normal) Range: 14-46 Lymphs (Absolute) 1.3 {x10E3/uL} (Normal) Range: 0.7-4.5 MCH 30.6 pg (Normal) Range: 27.0-34.0 MCHC 33.4 g/dL (Normal) Range: 32.0-36.0 MCV 92 fL (Normal) Range: 80-98 Monocytes 8 % (Normal) Range: 4-13 Monocytes(Absolute) 0.3 {x10E3/uL} (Normal) Range: 0.1-1.0 Neutrophils 55 % (Normal) Range: 40-74 Neutrophils (Absolute) 2.1 {x10E3/uL} (Normal) Range: 1.8-7.8 Platelets 202 {x10E3/uL} (Normal) Range: 140-415 RBC 5.19 {x10E6/uL} (Abnormal) Range: 3.80-5.10 RDW 13.1 % (Normal) Range: 11.7-15.0 WBC 3.9 {x10E3/uL} (Abnormal) Range: 4.0-10.5 82-Gzf-959138:33 METABOLIC PANEL, COMPREHENSIVE Comments: PATIENT WAS FASTINGPERFORMED BY: LabCo Bpypri6273 [facility] [id number] ([id number]) A/G Ratio 2.0 (Normal) Range: 1.1-2.5 Albumin, Serum 5.1 g/dL (Abnormal) Range: 3.6-4.8 Alkaline Phosphatase, S 89 [iU]/L (Normal) Range: 25-165 ALT (SGPT) 57 [iU]/L (Abnormal) Range: 0-40 AST (SGOT) 37 [iU]/L (Normal) Range: 0-40 Bilirubin, Total 0.5 mg/dL (Normal) Range: 0.1-1.2 BUN 20 mg/dL (Normal) Range: 5-26 BUN/Creatinine Ratio 22 (Normal) Range: 8-27 Calcium, Serum 9.9 mg/dL (Normal) Range: 8.5-10.6 Carbon Dioxide, Total 23 mmol/L (Normal) Range: 20-32 Chloride, Serum 100 mmol/L (Normal) Range: 97-108 Creatinine, Serum 0.90 mg/dL (Normal) Range: 0.50-1.50 Globulin, Total 2.6 g/dL (Normal) Range: 1.5-4.5 Glom Filt Rate, Est >60 mL/min (Normal) Range: 60-128 Glucose, Serum 81 mg/dL (Normal) Range: 65-99 If -French >60 mL/min (Normal) Range: 60-128 Comments: Note: Persistent reduction for 3 months or more in an eGFR<60 mL/min/1.73 m2 defines CKD. Patients with eGFR values>/=60 mL/min/1.73 m2 may also have CKD if evidence of persistentproteinuria is present. Additional information may be found [email or web address]. Potassium, Serum 4.5 mmol/L (Normal) Range: 3.5-5.2 Protein, Total, Serum 7.7 g/dL (Normal) Range: 6.0-8.5 Sodium, Serum 140 mmol/L (Normal) Range: 135-145 47-Uop-075245:33 LIPID PANEL (41940) Comments: PATIENT WAS FASTINGPERFORMED BY: [facility]Stra[facility]6370 [facility] [id number] Cholesterol, Total 344 mg/dL (Abnormal) Range: 100-199 Comment [facility]CS (Normal) Comments: If initial LDL-cholesterol result is >100 mg/dL, assess forrisk factors. HDL Cholesterol 38 mg/dL (Abnormal) Range: 40-59 LDL Cholesterol Calc 257 mg/dL (Abnormal) Range: 0-99 LDL/HDL Ratio 6.8 {ratio_units} (Abnormal) Range: 0.0-3.2 Triglycerides 243 mg/dL (Abnormal) Range: 0-149 VLDL Cholesterol Celso 49 mg/dL (Abnormal) Range: 5-40 :47 FINGER(S),MIN 2 VIEWS Radiology Report See Note (Normal) Comments: Exam Number: [id number] LEFT THUMB, 3 VIEWS STATEMENTPain. COMPARISON STUDYWrist radiograph from the same day dictated separately. 3 views were acquired. Projecting adjacent to the base of the firstmeta carpal is an elliptical somewhat ovoid area of presumed dystrophicsoft tissue calcification or ossification. The possibility of aremote avulsion injury would not be entirely excluded. The margins ofth is lesion appear rounded and corticated. Exact donor site is notshown. There is degenerative change present at the first carpalmetacarpal joint space. The remainder of the osseous anatomy isunremarka ble. No definite acute fracture deformity is shown. IMPRESSIONFocal abnormal area of soft tissue calcification or ossificationadjacent to the base of the first metacarpal. The possibility of aremote avulsion injury would not be excluded. Acute avulsion injuryis felt less likely as the margins of this lesion appear rounded andcorticated. Reported By: RAGHAV SINGLETARY M.D. :47 WRIST,MIN 3 VIEWS Radiology Report See Note (Normal) Comments: Exam Number: [id number] LEFT WRIST, 3 VIEWS STATEMENTWrist pain. There is degenerative narrowing of the radial carpal joint space. Carpal alignment appears appropriate. Adjacent to the base of thefirst metacarpal is an elliptical calcific density likely secondary todystrophic calcification or ossification. This could be the result ofremote posttraumatic process. I doubt this represents an avulsioninj ury as the margins of this area appear smooth and rounded. Noadditional osseous abnormalities are shown. There is milddegenerative narrowing of the first carpal/metacarpal joint space. Subchondral cys tic changes are shown on the distal ulna. IMPRESSIONDegenerative changes as described. Focal area of presumed dystrophicsoft tissue calcification adjacent to the base of the firstmetacarpal. Reported By: RAGHAV SINGLETARY M.D. : GLU GTT-2 HOUR 60 mg/dL (Abnormal) Comments: 2HR GTT GLU 2 HR GLU GTT-2 HOUR from [id number]. 30 Range: 70-120 : GLU GTT-1 HOUR 116 mg/dL (Abnormal) Comments: 2HR GTT GLU 1 HR GLU GTT-1 HOUR from 329:[id number]. 32 Range: 120-170 : GLU GTT-30 min. 125 mg/dL (Normal) Comments: 2HR GTT GLU 1/2 HR GLU GTT-30 min. from 329:[id number]. 02 Range: 110-170 : C-REACTIVE PROT 9.22 mg/L (Abnormal) Range: 0.0-6.0 25 Comments: Test performed using the Dimension C-Reactive ProteinExtended Range assay method. This assay meets the AHA/CDC 2003 recommendations fordetermining patients at high risk for cardiovasculardisease. Reference: High risk CRP >3.0 mg/L :25 CBCD,SMEAR DIFF BAND 4 % (Normal) Range: 0-5 CELLS COUNTED 100 (Normal) HCT 40.4 % (Normal) Range: 37-47 HGB 13.5 g/dL (Normal) Range: 12.0-16.0 LYMPH 43 % (Abnormal) Range: 19-41 MCH 30.1 pg (Normal) Range: 27.0-32.0 MCHC 33.5 g/dL (Normal) Range: 32-36 MCV 89.9 fL (Normal) Range: 81-99 MONOCYTE 2 % (Normal) Range: 0-10 PLT 306 K/mm3 (Normal) Range: 150-450 PLT EST SeeNote (Normal) Comments: Result: ADEQUATE RBC 4.49 {M/mm3} (Normal) Range: 4.2-5.4 RDW 13.5 % (Normal) Range: 11.6-14.6 RED CELL MORPH SeeNote {NORMAL} (Normal) Comments: Result: NORM C&C SEGS 51 % (Normal) Range: 47-70 WBC 3.5 K/mm3 (Abnormal) Range: 4.4-11.0 :25 ESR SED RATE 25 mm/h (Normal) Range: 0-30 :25 GLU GTT-FASTING 84 mg/dL (Normal) Comments: 2HR GTT FASTING GLU GTT-FASTING from 329:[id number]. Range: 70-110 Comments: GLUCOSE TOLERANCE TEST Reference Interval Non- Adults Fasting 70 - 110 30 minutes 110 - 170 1 hour 120 - 170 2 hour 70 - 120 3 hour 70 - 110 4 hour 70 - 110 5 hour 70 - 110 5-Qny-[id number]:00 CULTURE, STOOL See Note (Normal) Comments: No Salmonella, Shigella, E. coli 0157:H7, Yersinia orCampylobacter isolated. No significant amount ofStaphylococcus aureus or yeast-like organisms isolated. :00 O AND P See Note (Normal) Comments: OVA AND PARASITES EXAM, ROUTINE These results were obtained using wet preparation(s) and trichrome stained smear. This test does not include testing for Crytosporidium parvum, Cyclospora, or Microspo ridia. TESTING PERFORMED AT [facility]. ORIGINAL REPORT ON FILE IN LAB CONTAINS ADDITIONAL TEST SITE INFORMATION. OVA/ PARASITES EXAM NO OVA, CYSTS, OR PARASITES FOUND. :03 CBC HCT 42.6 % (Normal) Range: 37-47 HGB 14.1 g/dL (Normal) Range: 12.0-16.0 MCH 29.4 pg (Normal) Range: 27.0-32.0 MCHC 33.0 g/dL (Normal) Range: 32-36 MCV 88.9 fL (Normal) Range: 81-99 PLT 288 K/mm3 (Normal) Range: 150-450 RBC 4.79 {M/mm3} (Normal) Range: 4.2-5.4 RDW 12.8 % (Normal) Range: 11.6-14.6 WBC 2.9 K/mm3 (Abnormal) Range: 4.4-11.0 : COMP METABOLIC A/G 1.0 {RATIO} (Normal) Range: 0.9-2.4 ALB 3.6 g/dL (Normal) Range: 3.4-5.0 ALK P 112 U/L (Normal) Range: 50-136 ALT 56 [iU]/L (Normal) Range: 30-65 AST 26 U/L (Normal) Range: 15-37 BUN 22 mg/dL (Abnormal) Range: 7-18 BUN/CRE 24.4 {RATIO} (Abnormal) Range: 10-20 CA 8.8 mg/dL (Normal) Range: 8.5-10.1 CL 104 mmol/L (Normal) Range: 98-107 CO2 31.1 mmol/L (Abnormal) Range: 22.0-29.0 CREAT,SERUM 0.9 mg/dL (Normal) Range: 0.6-1.0 GAP 7 (Normal) Range: 5-15 GLOB 3.7 g/dL (Abnormal) Range: 2.3-3.5 GLU 84 mg/dL (Normal) Range: 70-110 K 4.2 mmol/L (Normal) Range: 3.5-5.1 NA 142 mmol/L (Normal) Range: 136-145 T BILI 0.45 mg/dL (Normal) Range: 0.00-1.00 T PROT 7.3 g/dL (Normal) Range: 6.4-8.2 :03 ESR SED RATE 18 mm/h (Normal) Range: 0-30 :03 LIPID CHOL 251 mg/dL (Abnormal) Comments: <200 mg/dL Desirable 200-240 mg/dL Borderline >240 mg/dL High Risk HDL 35 mg/dL (Normal) Comments: Reference Range HDL <40 mg/dL Low HDL Cholesterol HDL >or= 60 mg/dL High HDL Cholesterol LDL 196 mg/dL (Abnormal) Range: 0-130 TRIG 101 mg/dL (Normal) Comments: Serum Triglycerides Reference Interval Normal <150 mg/dL Borderline high 150 - 199 mg/dL High 200 - 499 mg/dL Very High > or = 500 mg/dL VLDL 20 mg/dL (Normal) Range: 5-40 :03 ROUTINE UA BILIRUBIN URINE SeeNote (Normal) Comments: Result: NEGATIVE CLARITY CLOUDY (Normal) COLOR YELLOW (Normal) GLUCOSE, UR SeeNote (Normal) Comments: Result: NEGATIVE KETONE UR SeeNote mg/dL (Normal) Comments: Result: NEGATIVE LEUK ESTERASE SeeNote (Normal) Comments: Result: NEGATIVE NITRITE UR SeeNote (Normal) Comments: Result: NEGATIVE OCCULT BLOOD-UR SeeNote (Normal) Comments: Result: NEGATIVE pH UR 7.0 (Normal) Range: 5.0-8.0 PROT DIPSTX SeeNote (Normal) Comments: Result: NEGATIVE SP.GR. DIPSTX 1.015 (Normal) Range: 1.002-1.030 UROBILI 0.2 EU/dl (Normal) Range: 0.2 - 1.0 :03 TSH 2.32 {uIU/mL} (Normal) Range: 0.34-4.82 :30 C DIF See Note (Normal) Comments: C. DIFF TOXINS A&B NEGATIVE :30 C DIF See Note (Normal) Comments: C. DIFF TOXINS A&B NEGATIVE :30 FECAL WBC See Note (Normal) Comments: FECAL WBCs NONE SEEN :30 ST OCCULT BLOOD See Note (Normal) Comments: OCCULT BLOOD NEGATIVE : ST OCCULT BLOOD See Note (Normal) Comments: OCCULT BLOOD NEGATIVE Plan of Care Name Dates Details Instructions Amnesia : Eprescribed prescriptions (G8553) Indication: Amnesia Gastroesophageal reflux disease without esophagitis : Eprescribed prescriptions (G8553) Indication: Gastroesophageal reflux disease without esophagitis Amnesia : Eprescribed prescriptions (G8553) Indication: Amnesia Chest pain, atypical : Eprescribed prescriptions (G8553) Indication: Chest pain, atypical BMI between 19-24,adult : Eprescribed prescriptions (G8553) Indication: BMI between 19-24,adult Elevated hemoglobin A1c : Eprescribed prescriptions (G8553) Indication: Elevated hemoglobin A1c Benign essential hypertension : Eprescribed prescriptions (G8553) Indication: Benign essential hypertension Benign essential hypertension : Eprescribed prescriptions (G8553) Indication: Benign essential hypertension Non-smoker : Eprescribed prescriptions (G8553) Indication: Non-smoker Prediabetes : Diet, Exercise, and Wt loss Indication: Prediabetes Prediabetes : *Diabetes Education Indication: Prediabetes [facility] Physical : Eprescribed prescriptions (G8553) Indication: [facility] Palpitations : Eprescribed prescriptions (G8553) Indication: Palpitations Precordial pain : Eprescribed prescriptions (G8553) Indication: Precordial pain Hypercholesteremia : Eprescribed prescriptions (G8553) Indication: Hypercholesteremia Migraine : Eprescribed prescriptions (G8553) Indication: Migraine Hypercholesteremia : Eprescribed prescriptions (G8553) Indication: Hypercholesteremia Gastroesophageal reflux disease without esophagitis : Eprescribed prescriptions (G8553) Indication: Gastroesophageal reflux disease without esophagitis Diarrhea : *Abd Pain Red Flags Indication: Diarrhea Diarrhea : Diarrhea instructions Indication: Diarrhea Encounter for Medicare annual wellness exam : fall reduction handout Indication: Encounter for Medicare annual wellness exam Encounter for Medicare annual wellness exam : elderly packet given Indication: Encounter for Medicare annual wellness exam Encounter for screening for malignant neoplasm of cervix : *Well Female Maintenance (KF) Indication: Encounter for screening for malignant neoplasm of cervix Left lower quadrant pain (Renamed from Abdominal pain, left lower quadrant) : *Antibiotic Usage Education - Female Indication: Left lower quadrant pain (Renamed from Abdominal pain, left lower quadrant) Left lower quadrant pain (Renamed from Abdominal pain, left lower quadrant) : Abdominal Pain: abdominal pain Indication: Left lower quadrant pain (Renamed from Abdominal pain, left lower quadrant) Migraine : Migraine Headache: Brief Version *: migraine headache Indication: Migraine Osteopenia : Osteoporosis in Women *: bone loss Indication: Osteopenia Hypercholesteremia : High Cholesterol (Hypercholesterolemia) *: blood Indication: Hypercholesteremia Hypercholesteremia : Cholesterol - Medication Side Effects Indication: Hypercholesteremia Leukopenia, unspecified type : FOLLOW UP - MAKE APPT AFTER DIAGNOSTIC TESTS Indication: Leukopenia, unspecified type Cervical radiculopathy : exercises Indication: Cervical radiculopathy Gastroesophageal reflux disease without esophagitis : FOLLOW UP IF NO IMPROVEMENT OR IF SYMPTOMS WORSEN Indication: Gastroesophageal reflux disease without esophagitis Gastroesophageal reflux disease without esophagitis : GERD Education Indication: Gastroesophageal reflux disease without esophagitis Hypercholesteremia : Cholesterol - Medication Side Effects Indication: Hypercholesteremia Hypercholesteremia : Cholesterol - Nonprescription Treatment Indication: Hypercholesteremia Hypercholesteremia : CHOLESTEROL MGMT. Indication: Hypercholesteremia Cervical radiculopathy : exercises Indication: Cervical radiculopathy Blood in stool : Colon Cancer Screening Indication: Blood in stool Diarrhea : Abd Pain Red Flags Indication: Diarrhea Diarrhea : Diarrhea Education Indication: Diarrhea Planned Observations CBC with auto diff ([id number])Indication: Elevated hemoglobin A1c On: 21-Qed-546784:07 Request METABOLIC PANEL, COMPREHENSIVE ([id number])Indication: Elevated hemoglobin A1c On: 65-Kjh-312916:07 Request HGB A1C ([id number])Indication: Elevated hemoglobin A1c On: 22-Zuu-927777:07 Request LIPID PANEL ([id number])Indication: Hypercholesteremia On: 91-Ofm-871929:07 Request [id number] ([id number])Indication: Fatty liver On: 51-Nwu-951973:07 Request CBC W/AUTO DIFF WBC ([id number])Indication: Benign essential hypertension On: :11 Request METABOLIC PANEL, COMPREHENSIVE ([id number])Indication: Benign essential hypertension On: :11 Request [id number] ([id number])Indication: Fatty liver On: :11 Request UPEP ([id number])Indication: Osteopenia On: 19-Jxq-631809:50 Request SPEP ([id number])Indication: Osteopenia On: 03-Kta-307985:50 Request TSH ([id number])Indication: Diarrhea On: :33 Request CBC WITH MANUAL DIFF ([id number])Indication: Diarrhea On: 78-Yom-789633:33 Request METABOLIC PANEL, COMPREHENSIVE ([id number])Indication: Diarrhea On: :33 Request RU CULTURE-STOOL ([id number])Indication: Diarrhea On: 81-Yhg-338792:05 Request OVA & PARASITE DIR SMEAR ([id number])Indication: Diarrhea On: 19-Fdo-367961:04 Request LEUKOCYTE COUNT, FECAL ([id number])Indication: Diarrhea On: 98-Bbd-596179:04 Request C-DIFFICILE, STOOL ([id number])Indication: Diarrhea On: 14-Jlz-658382:04 Request UPEP ([id number])Indication: Osteopenia On: 37-Bme-325442:19 Request SPEP ([id number])Indication: Osteopenia On: 26-Emt-732173:19 Request TSH ([id number])Indication: Vitamin D deficiency, unspecified On: 94-Kam-833557:32 Request UPEP ([id number])Indication: Vitamin D deficiency, unspecified On: 75-Qnu-475429:31 Request SPEP ([id number])Indication: Vitamin D deficiency, unspecified On: 52-Uab-436481:31 Request URINE CALCIUM KAIA TIMED 24 Hour ([id number])Indication: Vitamin D deficiency, unspecified On: :31 Request PARATHORMONE ([id number])Indication: Vitamin D deficiency, unspecified On: :31 Request PHOSPHORUS ([id number])Indication: Vitamin D deficiency, unspecified On: :31 Request Vitamin D Hydroxy ([id number])Indication: Vitamin D deficiency, unspecified On: :31 Request Vitamin D Hydroxy ([id number])Indication: Vitamin D deficiency, unspecified On: 49-Ahs-024194:50 Request CBC WITH MANUAL DIFF ([id number])Indication: Hypercholesteremia On: 43-Cbt-899963:50 Request METABOLIC PANEL, COMPREHENSIVE ([id number])Indication: Hypercholesteremia On: :49 Request CBC WITH MANUAL DIFF ([id number])Indication: Polycythemia, secondary On: :08 Request METABOLIC PANEL, COMPREHENSIVE ([id number])Indication: Migraine On: :08 Request Vitamin D Hydroxy ([id number])Indication: Vitamin D deficiency, unspecified On: :08 Request LIPID PANEL ([id number])Indication: Hypercholesteremia On: :08 Request [id number] ([id number])Indication: Fatty liver On: :08 Request PT (Prothrobim Time) ([id number])Indication: Fatty liver On: :07 Request PTT (Activated Partial Thromboplastin Time) ([id number])Indication: Fatty liver On: :07 Request LIPID PANEL ([id number])Indication: Hypercholesteremia On: :33 Request METABOLIC PANEL, COMPREHENSIVE ([id number])Indication: Fatty liver On: 36-Dqk-249312:32 Request Vitamin D Hydroxy ([id number])Indication: Vitamin D deficiency, unspecified On: 71-Qnk-061242:16 Request CBC WITH MANUAL DIFF ([id number])Indication: Leukopenia, unspecified type On: 61-Wok-375775:13 Request METABOLIC PANEL, COMPREHENSIVE ([id number])Indication: Osteopenia On: 67-Yvr-511352:39 Request Vitamin D Hydroxy ([id number])Indication: Osteopenia On: 73-Ttd-937161:39 Request CBC WITH MANUAL DIFF ([id number])Indication: Leukopenia, unspecified type On: :39 Request HEPATIC FUNCTION PANEL ([id number])Indication: Hypercholesteremia On: :39 Request LIPID PANEL ([id number])Indication: Hypercholesteremia On: :39 Request LDH (LD) (LACTATE DEHYDROGENASE) ([id number]) On: 4-Htu-800760:24 Request CBC WITH MANUAL DIFF ([id number])Indication: Leukopenia, unspecified type On: :24 Request Urine Protein Electrophoresis (UPEP) ([id number])Indication: elevated albumin On: :38 Request Serum Protein Electrophoresis (SPEP) ([id number])Indication: elevated albumin On: :38 Request CBC WITH MANUAL DIFF ([id number]) On: :38 Request METABOLIC PANEL, COMPREHENSIVE ([id number])Indication: Hypercholesteremia On: :45 Request LIPID PANEL ([id number])Indication: Hypercholesteremia On: :45 Request CBC WITH MANUAL DIFF ([id number])Indication: Leukopenia, unspecified type On: 00-Niw-588645:45 Request C-Reactive Protein ([id number])Indication: Leukopenia, unspecified type On: 80-Akx-843329:51 Request Sed Rate Erythrocyte ([id number])Indication: Leukopenia, unspecified type On: 91-Tea-725432:51 Request GLUCOSE TOLERANCE TEST (GTT) 2 hour ([id number])Indication: Family history of diabetes mellitus On: :47 Request CBC with manual diff ([id number])Indication: Leukopenia, unspecified type On: 37-Asv-123570:46 Request LIPID PANEL ([id number])Indication: Hypercholesteremia On: 28-Iwz-243840:43 Request Comments: in 6 months TSH ([id number])Indication: Diarrhea On: 4-Utl-681742:00 Request Metabolic Panel, Comprehensive ([id number])Indication: Blood in stool On: 3-Zsv-100799:56 Request URINALYSIS W/O MICRO ([id number])Indication: Blood in stool On: 0-Llu-752209:49 Request Sed Rate Erythrocyte ([id number])Indication: Blood in stool On: 0-Tbi-789678:49 Request CBC (Auto) ([id number])Indication: Blood in stool On: 2-Hje-982043:48 Request RU CULTURE-STOOL ([id number])Indication: Diarrhea On: :27 Request C.Difficile, StoolIndication: Diarrhea On: :27 Request LEUKOCYTE COUNT, FECAL ([id number])Indication: Diarrhea On: :27 Request OCCULT BLOOD FECES SCREEN ([id number])Indication: Diarrhea On: : Request OVA & PARASITE DIR SMEAR ([id number])Indication: Diarrhea On: : Request Planned Encounters Medical; [facility] 3 Month FU - On: 14-Jun-2018 9:45 [facility] Stewart DO, Aparna A Fast DO, Aparna A Planned Procedures DUPLEX SCAN OF RENAL ARTERY On: 29-Apr-2018 Intent ([id number])By: Stewart GACRIA, Aparna A Fast DO, Aparna A ELECTROCARDIOGRAM, COMPLETE (ECG) On: 24-Apr-2018 Intent ([id number])By: Stewart GARCIA Aparna A Fast DO, Comments: ekg showed normal sinus rhythym, normal axis, no acute st/t wave changes Aparna A EEGBy: Stewart GARCIA, Aparna A Fast DO, On: 11-Jan-2018 Intent Aparna A PFT - CompleteBy: David William DOa A On: 31-Aug-2017 Intent Stewart GARCIA Aparna A Ultrasound - LiverBy: Stewart GARCIA Aparna On: 20-Aug-2017 Intent A Fast DO, Aparna A Spirometry ([id number])By: David William DOa On: 20-Aug-2017 Intent A Fast DO, Aparna A Comments: good effort and curve normal ELECTROCARDIOGRAM, COMPLETE (ECG) On: 20-Aug-2017 Intent ([id number])By: Stewart GARCIA Aparna A Fast DO, Comments: ekg showed normal sinus rhythym, normal axis, no acute st/t wave changes Aparna A Radiology - Chest- PA and LatBy: Fast On: 20-Aug-2017 Intent DO, Aparna A Fast DO, Aparna A SCREENING DIGITAL TOMOSYNTHESIS OF On: 20-Aug-2017 Intent BREAST ([id number])By: Stewart DO Aparna A Comments: end of aug Fast DO Aparna A BILATERAL MAMMOGRAMS ([id number])By: Stewart On: 19-Jul-2016 Intent DO, Aparna A Fast DO, Aparna A Comments: aug DEXA SCAN AXIAL SKELETON ([id number])By: On: 19-Jul-2016 Intent Fast DO, Aparna A Fast DO, Aparna A Comments: aug ELECTROCARDIOGRAM, COMPLETE (ECG) On: 18-Apr-2016 Intent ([id number])By: Fast DO, Aparna A Fast DO, Comments: ekg showed normal sinus rhythym, normal axis, no acute st/t wave changes Aparna A Holter Monitor 24 hrsBy: Fast DO, On: 25-Jan-2016 Intent Aparna A Fast DO, Aparna A Nuclear Stress Test/Stress On: 21-Dec-2015 Intent SPECT/TreadmillBy: Fast DO, Aparna A Fast DO, Aparna A Echo CompleteBy: Fast DO, Aparna A On: 21-Dec-2015 Intent Fast DO, Aparna A MAMMOGRAM, SCREENING, BOTH BREAST On: 17-Aug-2015 Intent ([id number])By: Fast DO, Aparna A Fast DO, Aparna A XR STERNOCLAVICULAR JOINT, 3 VIEWS On: 13-Apr-2015 Intent ([id number])By: Fast DO, Aparna A Fast DO, Comments: right Aparna A DEXA SCAN AXIAL SKELETON ([id number])By: On: 10-Aug-2014 Intent Fast DO, Aparna A Fast DO, Aparna A MAMMOGRAM, SCREENING, BOTH BREAST On: 10-Aug-2014 Intent ([id number])By: Fast DO, Aparna A Fast DO, Aparna A CT - Abdomen & Pelvis (IV Contrast On: 20-Jan-2014 Intent Needed)By: Fast DO, Aparna A Fast DO, Comments: stat call results Aparna A Eprescribed prescriptions ([id number])By: On: 03-Dec-2013 Intent Fast DO, Aparna A Fast DO, Aparna A Pelvic and Breast, Medicare On: 06-Oct-2013 Intent ([id number])By: Fast DO, Aparna A Fast DO, Aparna A EKG ([id number])By: Caryn Camacho On: 06-Aug-2013 Intent Comments: ekg showed normal sinus rhythym, normal axis, no acute st/t wave changes MAMMOGRAM, SCREENING, BOTH BREASTS On: 30-Apr-2013 Intent ([id number])By: Fast DO, Aparna A Fast DO, Comments: end jun Aparna A MRI - Lumbar SpineBy: Fast DO, Aparna On: 14-Apr-2013 Intent A Fast DO, Aparna A Radiology - Knee - Right - Weight On: 13-Jan-2013 Intent BearingBy: Fast DO, Aparna A Fast DO, Comments: and sunrise view Aparna A Eprescribed prescriptions ([id number])By: On: 13-Jan-2013 Intent Caryn Camacho MAMMOGRAM, SCREENING, BOTH BREASTS On: 10-Jun-2012 Intent ([id number])By: Fast DO, Aparna A Fast DO, Comments: jun Aparna A DXA, BONE DENSITY, AXIAL SKELETON On: 10-Jun-2012 Intent ([id number])By: Fast DO, Aparna A Fast DO, Comments: jun Aparna A Eprescribed prescriptions ([id number])By: On: 10-Jun-2012 Intent Caryn Camacho DXA, BONE DENSITY, AXIAL SKELETON On: 10-Oct-2011 Intent ([id number])By: Fast DO, Aparna A Fast DO, Comments: december Aparna A TD Injection , IM ([id number])By: On: 10-Oct-2011 Intent Caryn Camacho Comments: 2006 Eprescribed prescriptions ([id number])By: On: 13-Jun-2011 Intent Fast DO, Aparna A Fast DO, Aparna A MAMMOGRAM, SCREENING, BOTH BREASTS On: 13-Jun-2011 Intent ([id number])By: Fast DO, Aparna A Fast DO, Aparna A FLU VAC, SPLIT, >3 YEARS, INTRAMUSC On: 13-Jun-2011 Intent ([id number])By: Caryn Camacho Comments: pt refuses ELECTROCARDIOGRAM, COMPLETE (ECG) On: 30-Dec-2010 Intent ([id number])By: Clarissa Bolden CNP Comments: reviewed with Dr. Garcia, compared to October 10, 2010 EKG ([id number])By: Caryn Camacho On: 10-Oct-2010 Intent Comments: ekg showed normal sinus rhythym, normal axis, no acute st/t wave changes MAMMOGRAM, SCREENING, BOTH BREASTS On: 14-Feb-2010 Intent ([id number])By: Fast DO, Aparna A Fast DO, Comments: end mar Aparna A DXA, BONE DENSITY, AXIAL SKELETON On: 15-Oct-2009 Intent ([id number])By: Fast DO, Aparna A Fast DO, Comments: january Aparna A EKG ([id number])By: Caryn Camacho On: 07-Jul-2009 Intent Comments: ekg showed normal sinus rhythym, normal axis, no acute st/t wave changes upsloping st segments unchanged Ultrasound - SpleenBy: Fast DO, Aparna On: 22-Mar-2009 Intent A Fast DO, Aparna A Ultrasound - LiverBy: Fast DO, Aparna On: 22-Mar-2009 Intent A Fast DO, Aparna A MAMMOGRAM, SCREENING, BOTH BREASTS On: 22-Mar-2009 Intent ([id number])By: Fast DO, Aparna A Fast DO, Aparna A PFT - CompleteBy: Fast DO, Aparna A On: 12-Feb-2008 Intent Fast DO, Aparna A Nuclear Stress Test/Stress On: 23-Jan-2008 Intent SPECT/TreadmillBy: Fast DO, Paarna A Fast DO, Aparna A Radiology - Lumbar SpineBy: Fast DO, On: 23-Jan-2008 Intent Aparna A Fast DO, Aparna A Radiology - Cervical SpineBy: Fast On: 23-Jan-2008 Intent DO, Aparna A Fast DO, Aparna A Spirometry ([id number])By: Fast DO, Aparna On: 23-Jan-2008 Intent A Fast DO, Aparna A Comments: good effort and curve- -with mild obstruction Radiology - Chest- PA and LatBy: Fast On: 23-Jan-2008 Intent DO, Aparna A Fast DO, Aparna A EKG ([id number])By: Fast DO, Aparna A Fast On: 23-Jan-2008 Intent DO, Aparna A Comments: ekg showed normal sinus rhythym, normal axis, no acute st/t wave changes DXA, BONE DENSITY, AXIAL SKELETON On: 23-Jan-2008 Intent ([id number])By: Fast DO, Aparna A Fast DO, Aparna A MAMMOGRAM, SCREENING, BOTH BREASTS On: 23-Jan-2008 Intent ([id number])By: Fast DO, Aparna A Fast DO, Aparna A Endoscopy - Small Bowel SeriesBy: On: 04-Oct-2006 Intent МАРИНА COSBY CNP Instructions Name Dates Details Amnesia : How to access health information online Indication: Amnesia Amnesia : How to access health information online - Detail Indication: Amnesia Amnesia : Patient Instructions Indication: Amnesia Gastroesophageal reflux disease without esophagitis : How to access health information online Indication: Gastroesophageal reflux disease without esophagitis Gastroesophageal reflux disease without esophagitis : How to access health information online - Detail Indication: Gastroesophageal reflux disease without esophagitis Gastroesophageal reflux disease without esophagitis : Patient Instructions Indication: Gastroesophageal reflux disease without esophagitis Amnesia : How to access health information online Indication: Amnesia Amnesia : How to access health information online - Detail Indication: Amnesia Amnesia : Patient Instructions Indication: Amnesia Chest pain, atypical : How to access health information online Indication: Chest pain, atypical Chest pain, atypical : How to access health information online - Detail Indication: Chest pain, atypical Chest pain, atypical : Patient Instructions Indication: Chest pain, atypical BMI between 19-24,adult : How to access health information online Indication: BMI between 19-24,adult BMI between 19-24,adult : How to access health information online - Detail Indication: BMI between 19-24,adult BMI between 19-24,adult : Patient Instructions Indication: BMI between 19-24,adult Elevated hemoglobin A1c : How to access health information online Indication: Elevated hemoglobin A1c Elevated hemoglobin A1c : How to access health information online - Detail Indication: Elevated hemoglobin A1c Elevated hemoglobin A1c : Patient Instructions Indication: Elevated hemoglobin A1c Benign essential hypertension : How to access health information online Indication: Benign essential hypertension Benign essential hypertension : How to access health information online - Detail Indication: Benign essential hypertension Benign essential hypertension : Patient Instructions Indication: Benign essential hypertension Benign essential hypertension : How to access health information online Indication: Benign essential hypertension Benign essential hypertension : How to access health information online - Detail Indication: Benign essential hypertension Benign essential hypertension : Patient Instructions Indication: Benign essential hypertension Non-smoker : How to access health information online Indication: Non-smoker Non-smoker : How to access health information online - Detail Indication: Non-smoker Non-smoker : Patient Instructions Indication: Non-smoker [facility] : How to access health information online Indication: [facility] : How to access health information online - Detail Indication: [facility] Physical : Patient Instructions Indication: [facility] Palpitations : How to access health information online Indication: Palpitations Palpitations : How to access health information online - Detail Indication: Palpitations Palpitations : Patient Instructions Indication: Palpitations Precordial pain : How to access health information online Indication: Precordial pain Precordial pain : How to access health information online - Detail Indication: Precordial pain Precordial pain : Patient Instructions Indication: Precordial pain Hypercholesteremia : How to access health information online Indication: Hypercholesteremia Hypercholesteremia : How to access health information online - Detail Indication: Hypercholesteremia Hypercholesteremia : Patient Instructions Indication: Hypercholesteremia Migraine : How to access health information online Indication: Migraine Migraine : How to access health information online - Detail Indication: Migraine Migraine : Patient Instructions Indication: Migraine Hypercholesteremia : Patient Instructions Indication: Hypercholesteremia Gastroesophageal reflux disease without esophagitis : Patient Instructions Indication: Gastroesophageal reflux disease without esophagitis Vitamin D deficiency, unspecified : How to access health information online Indication: Vitamin D deficiency, unspecified Vitamin D deficiency, unspecified : How to access health information online - Detail Indication: Vitamin D deficiency, unspecified Hypercholesteremia : Patient Instructions Indication: Hypercholesteremia Diarrhea : How to access health information online Indication: Diarrhea Diarrhea : How to access health information online - Detail Indication: Diarrhea Diarrhea : Patient Instructions Indication: Diarrhea Diarrhea : Patient Instructions Indication: Diarrhea Hypercholesteremia : Patient Instructions Indication: Hypercholesteremia Encounter for Medicare annual wellness exam : Patient Instructions Indication: Encounter for Medicare annual wellness exam Hypercholesteremia : Patient Instructions Indication: Hypercholesteremia Low back pain potentially associated with radiculopathy : Patient Instructions Indication: Low back pain potentially associated with radiculopathy Left lower quadrant pain (Renamed from Abdominal pain, left lower quadrant) : Patient Instructions Indication: Left lower quadrant pain (Renamed from Abdominal pain, left lower quadrant) Migraine : Patient Instructions Indication: Migraine Hypercholesteremia : Patient Instructions Indication: Hypercholesteremia Osteopenia : Patient Instructions Indication: Osteopenia Hypercholesteremia : Patient Instructions Indication: Hypercholesteremia Advance Directives Name Dates Details Living Will - Effective on 12/06/2017. Expiration date Effective: 06-Dec-2017 unspecified. Scanned Document is available upon request. Encounters Office Visit On: 30-Apr-2018 10:24 Encounter Diagnosis: Blood pressure elevated without history of HTN End: 30-Apr-2018 10:37 [facility] Phone Encounter On: 29-Apr-2018 13:45 Encounter Diagnosis: Interstitial pulmonary fibrosis End: 29-Apr-2018 13:50 [facility] Office Visit On: 24-Apr-2018 11:07 Encounter Reason: Follow up acute care visit - The patient feels the same (beverly is a little upset today. Had another episode on Sunday, here to follow up.). Patient has been compliant with instructions. 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 and she started to look around and things looked wierd to her she had no camp dizzy cp so or palpitations - no vision change weakness numbness slurred speech- she called daughter who said she was somewhat confused on the phone but not like last spell- lasted 45 min or so and went aay- she saw neuro in january he didnt do anything additional and she has been taking aspirin 81 mg daily- and he questi oned whether tia -we have call out to him - i wonder whether she getting elevated bp resposnse to activitiy as the last time it happened she was doing something and bp was high-Encounter Diagnosis: Non-smoker, BMI between 19-24,adult, Amnesia, Blood pressure elevated without history of HTN, Interstitial pulmonary fibrosis [facility] Office Visit On: 08-Mar-2018 9:38 Encounter Reason: Follow up tests - Date: (02/25 blood work)., [ADDITIONAL REASON] Follow up for chronic medical issues - The patient feels well with minor complai End: 10-Mar-2018 20:38 nts (BP has been running a little on the higher side. No symptoms assosciated with it. Has had company in the house. Has completely weaned off the Topamax, does not really notice much difference), has g ood energy level and is sleeping well. Patient has been compliant with instructions. Current medication use: no side effects and compliant with dosing regimen. Patient sleeps 6 (6-8) hours per night. Im pact of disease: no overall impact. Nutrition: balanced diet. The medical issues the patient is following up for include high blood pressure, high cholesterol and osteoporosis/osteopenia. Note for Foll ow up for chronic medical issues: no more amnestic episodes - bp running higher evven at home not- not doing caffeine and watching salt- and she isnt sitting for 10 min ??prior to taking- now running 1 19-151- trying to watch salt and doing more fruits and veggies- off inhaler didnt make big difference- off topamax and headaches not increased Encounter Diagnosis: Non-smoker, BMI between 19-24,adult, Elevated hemoglobin A1c, Hypercholesteremia, Fatty liver, Migraine, Gastroesophageal reflux disease without esophagitis, Amnesia [facility] Phone Encounter On: 25-Feb-2018 9:14 Encounter Diagnosis: Fatty liver, Hypercholesteremia, Elevated hemoglobin A1c End: 25-Feb-2018 9:19 [facility] Office Visit On: 11-Jan-2018 14:21 Encounter Reason: Follow up hospital - Reason for ER visit: note: (DX: TGA. Went to [facility] due to sudden memory loss. Said was doing things and working during the day when she went inside and called her daughter and wasn't End: 13-Jan-2018 22:08 making sense. Was acting normal but just very confused, asking the same question over and over.). 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 and had called daughter rahul er and had gone to chiropractor earlier- she recalls going out to trim shrubs-but then doesnt recall actually trimming them but she did - apparently then went into house and called daughter and said romel christinalisa looks wierd- kids came over and said she did everythinglike normal but just kept asking the same things over- she doesnt remember anything of this - until she was in hospital- and she doesnt rem ember going to hospital- then started to remember- still doesnt recall that am- had mri- echo her bps are good at home - really good- no family history of seizureEncounter Diagnosis: Non-smoker, BMI between 19-24,adult, Amnesia, Migraine, Anxiety [facility] Office Visit On: 03-Dec-2017 13:17 Encounter Reason: Physical female exam - General health: feels well with no complaints, has good energy level and is sleeping well. The patient's appetite is normal. Nutrition: appropriate balanced diet. Exercises 0 (but End: 05-Jan-2018 14:29 is very active and mows lawn) days per week. Sleeps on average 7 hours per night. Normal bowel and bladder habits. Safety measures include appropriate use of safety belts and home smoke detectors. Curr ent emotional problems include depression (sometimes with husbands health issues). Note for Physical exam: [facility]- her palpitations have been better but had discomfort on labor day in chest - working hard didnt make worse -no cough or wheeze- not sob- hurts to touch it lateral hip - worse if walks a lot- doesnt wish to take pneumonia vaccines- she did see Naz and he put her off f or a bit - she is due for scope- she doesnt want vaccinations- payton on premarin creme has gone up- so she didnt get it - was 500- chest symptoms seem to be better maybe because weatheris betterEncounter Diagnosis: Non-smoker, Migraine, [facility] EXAM, Abnormal weight loss, Gastroesophageal reflux disease without esophagitis, Vitamin D deficiency, unspecified, Fatty liver [facility] Office Visit On: 05-Oct-2017 12:43 Encounter Reason: Follow up tests - Diagnostic tests include other (lab mammogram and liver us). Date: (09/27 PFT). Note for Discuss procedure results: she notes cp intermittent not with exertion cold can make come on - End: 07-Oct-2017 10:12 had stress test echo ok- had appt with Naz -at this point he wasnt going to do another colonoscopy-Encounter Diagnosis: Non-smoker, BMI between 19-24,adult, Abnormal weight loss, Chest pain, atypical, Fatty liver [facility] Phone Encounter On: 31-Aug-2017 10:15 Encounter Diagnosis: Hyperinflation of lungs End: 31-Aug-2017 10:17 [facility] Office Visit On: 20-Aug-2017 10:06 Encounter Reason: Follow up for chronic medical issues - The patient feels well with minor complaints, has good energy level and is sleeping well. Patient has been compliant with instructions. Current medication use: no End: 20-Aug-2017 20:49 side effects and compliant with dosing regimen. Patient sleeps 6 (6-8) hours per night. Impact of disease: no overall impact. Nutrition: balanced diet. The medical issues the patient is following up for include high blood pressure, high cholesterol and osteoporosis/osteopenia. Note for Follow up for chronic medical issues: i did want to talk to dr william about my breathing. i notice when i go out in t he cold air it hurts to dreath in deep. but my breathing is fine with activity so i don't know if its's something to worry about-she feels a discomfort in chest - in cold and other times- not necessaril y with activity- - left chest - sometimes sore to touch- still losing weight has stress with not eating as many sweets - no cough wheeze or sob- can shovel snow doesnt make it worse- migraines b een better her meds though becuase had to refill or use, [ADDITIONAL REASON] Follow up, Laboratory Test Results - Date: (08/09/17). Encounter Diagnosis: Non- smoker, BMI between 19-24,adult, Migraine, Chest pain, atypical, Encounter for screening mammogram for breast cancer (Renamed from Encounter for screening mammogram for malignant neoplasm of breast), Abnormal weight loss, Fatty liver, Encounter for hepatitis C virus screening test for high risk patient [facility] Office Visit On: 14-May-2017 10:02 Encounter Reason: Follow up for chronic medical issues - The patient feels well with no complaints, has good energy level and is sleeping well. Patient has been compliant with instructions. Current medication use: no taurus End: 14-May-2017 20:04 e effects and compliant with dosing regimen. Patient sleeps 7 hours per night. Impact of disease: no overall impact. Nutrition: balanced diet. The medical issues the patient is following up for include high blood pressure, high cholesterol and osteoporosis/osteopenia. Note for Follow up for chronic medical issues: her weight down she had cut carbs completely and alot of stress with dementia- bp good- has beeen doing alot of walking - as well- some leg cramps occ with lipitor but acceptable- she took supplement this summer as thought had kidney stone- helped then end sept woke up with kidne y stone pain again- took cranberry and machine stonecutter supplement and took away- so no abdominal pain, [ADDITIONAL REASON] Follow up, Laboratory Test Results - Date: (05/01/17). Encounter Diagnosis: BMI between 19-24,adult, Non-smoker, Migraine, Vitamin D deficiency, unspecified, Benign essential hypertension, Elevated hemoglobin A1c, Hypercholesteremia, Influenza vaccination declined (Renamed from Refused influenza vaccine), Pain in limb (729.5), Polycythemia, secondary, Palpitations, Diastolic dysfunction, Low back pain (724.2), Pain of right lower leg, Unspecified menopausal and perimenopausal disorder, Clavical Pain(719.41), Gastroesophageal reflux disease without esophagitis, Bilateral hearing loss, Left lower quadrant pain (Renamed from Abdominal pain, left lower quadrant), Fatty liver, Bursitis of right hip, Calcium nephrolithiasis, PVC, OTHER PREMATURE BEATS (427.69), Osteopenia (733.90), Cervical radiculopathy (723.4), Thickened small bowel (569.89), Diarrhea (787.91), SHINGLES (053.9), Chest pain (786.59), Encounter for screening for malignant neoplasm of cervix, Blood in stool, Leukopenia, unspecified type, Pre-operative examination, Elevated LFTs, Stress reaction [facility] Office Visit On: 05-Feb-2017 9:24 Encounter Reason: Follow up tests - Date: (01/22 blood work)., [ADDITIONAL REASON] Follow up for chronic medical issues - The patient feels well with no complaints End: 05-Feb-2017 10:45 , has good energy level and is sleeping well. Patient has been compliant with instructions. Current medication use: no side effects and compliant with dosing regimen. Patient sleeps 7 hours per night. I mpact of disease: no overall impact. Nutrition: balanced diet. The medical issues the patient is following up for include high blood pressure, high cholesterol and osteoporosis/osteopenia. Note for Fol low up for chronic medical issues: she is working still on cutting back and being active and bp is great- she had a bout of elevated heart rate in october- she thinks maybe was outside but cant remember- heart rate was 135 for couple hours- seemed regular not happened again-had no sx with no cp sob dizzy- tolerating atorvastatin no gerd and hip better her headaches not bad occ takes excedrin which helps Encounter Diagnosis: Non-smoker, BMI between 19-24,adult, Benign essential hypertension, Gastroesophageal reflux disease without esophagitis, Hypercholesteremia, Fatty liver, Vitamin D deficiency, unspecified, Left lower quadrant pain (Renamed from Abdominal pain, left lower quadrant), Elevated hemoglobin A1c [facility] Office Visit On: 23-Oct-2016 10:18 Encounter Reason: Follow up for chronic medical issues - The patient feels well with no complaints, has good energy level and is sleeping well. Patient has been compliant with instructions. Current medication use: experi End: 23-Oct-2016 21:01 encing side effects (dry mouth she thinks from lipitor unless she mouths she breathes and doesnt realize it. also wakes up with headaches yet since being on the lipitor.) and compliant with dosing regim en. Patient sleeps 7 hours per night. Impact of disease: no overall impact. Nutrition: balanced diet. The medical issues the patient is following up for include high blood pressure, high cholesterol and osteoporosis/osteopenia. Note for Follow up for chronic medical issues: bp is good- and she did home bps and theyare essentially perfect- she is feeling good- she thinks she can tolerate the lipitor doesnt want to change- she managing hip bursitis not routine issue, [ADDITIONAL REASON] Follow up, Laboratory Test Results - Date: (10/09/16). Encounter Diagnosis: Benign essential hypertension, Non-smoker, BMI between 19-24,adult, Elevated hemoglobin A1c, Gastroesophageal reflux disease without esophagitis, Vitamin D deficiency, unspecified, Fatty liver, Bursitis of right hip, Hypercholesteremia, Osteopenia (733.90) [facility] Office Visit On: 19-Jul-2016 11:29 Encounter Reason: Follow up for chronic medical issues - The patient feels well with minor complaints (chol medication), has good energy level and is sleeping well. Patient has been compliant with instructions. Current m End: 20-Jul-2016 22:38 edication use: experiencing side effects (new chol meds caused achiness and headaches) and compliant with dosing regimen. Patient sleeps 7 hours per night. Impact of disease: no overall impact. Nutritio n: balanced diet. The medical issues the patient is following up for include high blood pressure, high cholesterol and osteoporosis/osteopenia. Note for Follow up for chronic medical issues: the atorv astatin giving her headache but tolerable and wastn to try to stay on- changed her diet weight down 6 pounds- hip bursitis better - and notes if she has the llq pain it is becuase she is upset- bps at h ome 125 /70s at home- thinks same with chest sx cant reproduce with exertion- may be stress , [ADDITIONAL REASON] Follow up tests - Date: (07/06/16). Encounter Diagnosis: Non-smoker, BMI between 19-24,adult, Need for prophylactic vaccination and inoculation against influenza, Influenza vaccination declined (Renamed from Refused influenza vaccine), Vitamin D deficiency, unspecified, Bursitis of right hip, Fatty liver, Prediabetes, Hypercholesteremia, Benign essential hypertension, Osteopenia (733.90), Encounter for screening mammogram for breast cancer (Renamed from Encounter for screening mammogram for malignant neoplasm of breast), Postmenopausal (Renamed from Postmenopausal status) [facility] Office Visit On: 18-Apr-2016 9:00 Encounter Reason: Physical female exam - General health: feels well with minor complaints (right hip pain- after sits it catches then once walks its better- pt has hx of low back pain with radic), has good energy level a End: 27-Apr-2016 20:55 nd is sleeping well. The patient's appetite is normal. Nutrition: appropriate balanced diet. Exercises 0 (but is very active and mows lawn by pushing and takes 2-3 hrs) days per week. Sleeps on average 7 hours per night. Normal bowel and bladder habits. Safety measures include appropriate use of safety belts and home smoke detectors. Current emotional problems include depression (sometimes with husban health issues). Note for Physical exam: [facility]- her palpitations have been better but had discomfort on labor day in chest - working hard didnt make worse -no cough or wheeze- not sob- hurts to touch it lateral hip - worse if walks a lot- doesnt wish to take pneumonia vaccines, [ADDITIONAL REASON] Follow up, Laboratory Test Results - Date: (02/2016). Encounter Diagnosis: [facility], Non-smoker, BMI between 19-24,adult, Diastolic dysfunction, Bursitis of right hip, Hypercholesteremia, Bilateral hearing loss, Prediabetes, Fatty liver, Vitamin D deficiency, unspecified [facility] Office Visit On: 25-Jan-2016 8:28 Encounter Reason: Follow up tests - Diagnostic tests include ECHO, other (labs from november) and treadmill exercise stress test. Date: (12/2015). Follow up visit with no current symptoms. Note for Discuss procedure results: End: 26-Jan-2016 11:53 Pt was in the ER last week for a kidney stone which she has passed one so far.- she isnt having that pain any more - occ feels short lived heavyin chest may be premature beat never with exertion can be when bends over wondering if pvc - Encounter Diagnosis: Palpitations, Non-smoker, PVC, OTHER PREMATURE BEATS (427.69), Precordial pain, Benign essential hypertension, Calcium nephrolithiasis, Vitamin D deficiency, unspecified, Fatty liver [facility] Office Visit On: 21-Dec-2015 10:51 Encounter Reason: Leg pain - The leg pain began suddenly and has been occurring for weeks. The symptoms have been occurring in an intermittent pattern. The symptoms are described as a sharp, stabbing pain and are ??moder End: 26-Dec-2015 21:58 ate to severe. The symptoms occur at rest and when lying down. There is involvement of the right lower extremity and left thigh (hip area). Precipitating factors include exertion. The symptoms have been associated with numbness and tingling in toes (3rd toe of right foot), while the symptoms have not been associated with calf swelling. Note for Leg pain: had right leg aching - not numbness now not w eak- is better now - came on sudden - had been gardening prior, [ADDITIONAL REASON] Palpitations - Onset was sudden month(s) ago. Onset followed a period of emotion al stress and exercise. The symptoms occur intermittently. The patient describes this as unchanged. Associated symptoms include chest pain (heaviness in chest), while associated symptoms do not include weakness, dizziness, lightheadedness, syncope, dyspnea, nausea or vomiting. The patient is not currently being treated for this problem. Note for Palpitations: has had the heaviness in the chest a cou ple times -- - doesnt neceassarily happen with exertion one time happened when bent over in flower beds doesnt feel reflux- and bp was ok when happens- feels like hard beat then pressure - lasts an adilson r- has happened 2-3 times close together- no radiation no sob sweaty or nausea Encounter Diagnosis: Precordial pain, Palpitations, Pain of right lower leg, Benign essential hypertension [facility] Office Visit On: 17-Aug-2015 9:49 Encounter Reason: Follow up for chronic medical issues - The patient feels well with no complaints, has good energy level and is sleeping well. Patient has been compliant with instructions. Current medication use: no taurus End: 17-Aug-2015 22:48 e effects and compliant with dosing regimen. Patient sleeps 7 hours per night. Nutrition: balanced diet. The medical issues the patient is following up for include All identified problems below. Note fo r Follow up for chronic medical issues: doing wellin general she is taking pravastatin daily - little achey but tolerable- she hasnt been exercising so encoruage 0 cbc normal - and no routine gerd- th e clavicle not as big of issue less swollen but still some less painful, [ADDITIONAL REASON] Follow up, Laboratory Test Results - Date: (07/28/15). Encounter Diagnosis: Hypercholesteremia, Gastroesophageal reflux disease without esophagitis, Migraine, Unspecified menopausal and perimenopausal disorder, Encounter for screening mammogram for breast cancer (Renamed from Encounter for screening mammogram for malignant neoplasm of breast), Fatty liver, Vitamin D deficiency, unspecified [facility] Office Visit On: 13-Apr-2015 10:53 Encounter Reason: Follow up tests - Date: (04/01/15)., [ADDITIONAL REASON] Follow up for chronic medical issues - The patient feels well with minor complai End: 13-Apr-2015 22:49 nts, has good energy level and is sleeping well. Patient has been compliant with instructions. Current medication use: no side effects and compliant with dosing regimen. Patient sleeps 7 hours per night . Nutrition: balanced diet. blood pressure range : and weight :. 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 Patient has been compliant with instructions. Current medication use: no taurus End: 08-Dec-2014 21:33 e effects and compliant with dosing regimen. Patient sleeps 6 (6-9) hours per night. Nutrition: balanced diet, supplemental vitamins and low salt diet. The medical issues the patient is following up for include All identified problems below, gastric reflux, high cholesterol, osteoporosis/osteopenia and other (vitamin d deficient, polycythemia, leukocytopenia, elevated lft's). Note for Follow up for c hronic medical issues: feels pretty good no gerd bp is good and weight is stable thinks tolerating pravastatin better than crestor- migraines stable- is she eats brocolli thats when gets slight abd pain- and not like was - , [ADDITIONAL REASON] Follow up, Laboratory Test Results - Date: (11/30/14). 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 ), has good energy level and is sleeping well. Patient has been compliant with instruct End: 10-Aug-2014 18:49 ions. Current medication use: experiencing side effects and compliant with dosing regimen. Patient sleeps 6 (6-9) hours per night. Nutrition: balanced diet, supplemental vitamins and low salt diet. The medical issues the patient is following up for include All identified problems below, gastric reflux, high cholesterol, osteoporosis/osteopenia and other (vitamin d deficient, polycythemia, leukocytopen ia, elevated lft's). Note for Follow up for chronic medical issues: she had good holiday and feels well bp is good and weight down 1 pound- gerd good on famotidine no polycythmeia- not tolerating crestor so stop- and migraines good, [ADDITIONAL REASON] Follow up, Laboratory Test Results - Date: (08/03/14). 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 Patient has been compliant with instructions. Current medication use: no taurus End: 06-Apr-2014 11:38 e effects and compliant with dosing regimen. Patient sleeps 6 (6-9) hours per night. Nutrition: balanced diet, supplemental vitamins and low salt diet. The medical issues the patient is following up for include All identified problems below, gastric reflux, high cholesterol, osteoporosis/osteopenia and other (vitamin d deficient, polycythemia, leukocytopenia, elevated lft's). Note for Follow up for c hronic medical issues: she is feeling well and is doing couseling aptts with respect to her and this is helping- her diarrhea had cleared up until mid february when had stress with - alot of stress- most of time ot diarrhea mostly loose stool saw naz last week-decided not do colosnocopy- he thinks IBS- he gave her rx and will monitor- she is comfortable with that plan- she is watching diet and cut out all sweets and weight coming down- taking crestor 2-3 times a week as tolerated and chol not horrible- and no rotuine gerd -no serious migraines and if takes med does good- no serious aches or pains in limbs at this point , [ADDITIONAL REASON] Follow up, Laboratory Test Results - Date: (04/01/14). Encounter Diagnosis: Hypercholesteremia (272.0), MIGRAINE, NOS (346.90), VITAMIN D DEFICIENCY, NOS (268.9), Fatty Liver (571.8), GERD (530.81) [facility] Office Visit On: 03-Feb-2014 14:23 Encounter Reason: Follow up, Laboratory Test Results - Date: (01/21/14). Current symptoms/reason for visit include/s Symptoms include diarrhea (thought it was resolved but then yesterday it came back) and other (heartburn End: 03-Feb-2014 21:35 is bothering her since off the prilosec.). Note for Follow up to discuss laboratory test results: Pt wanted to talk with Dr. William before seeing Dr. Franco as she recommended.- now diarrhea coming and going - now bad gerd and taking otc acid supervisor purification and tums and doesnt do it - occ if gas then gets llq pain otherwise doesntEncounter Diagnosis: Diarrhea (787.91), GERD (530.81), Left lower quadrant pain (Renamed from Abdominal pain, left lower quadrant) [facility] Office Visit On: 20-Jan-2014 12:03 Encounter Reason: Diarrhea - The onset of the diarrhea has been gradual and has been occurring in an intermittent pattern for months. The course has been recurrent. The stools are floating on water. The volume of the sto End: 20-Jan-2014 22:55 ols is normal. The symptoms have been associated with abdominal pain (cramping prior too diarrhea) and nausea, while the symptoms have not been associated with constipation, fever, vomiting or recent an tibiotics. Note for Diarrhea: has had on and off for several months- dull ache left lower quad alot butnot alwasythere - willg et severe gas pains - no fever or blood in stool- but couple times got sweaty- will have her tryoff ppi Encounter Diagnosis: Diarrhea (787.91), Left lower quadrant pain (Renamed from Abdominal pain, left lower quadrant) [facility] Office Visit On: 03-Dec-2013 9:40 Encounter Reason: Follow up for chronic medical issues - The patient feels well with no complaints, has good energy level and is sleeping well. Patient has been compliant with instructions. Current medication use: no taurus End: 03-Dec-2013 10:35 e effects. Patient sleeps 6 (6-9) hours per night. Nutrition: balanced diet, supplemental vitamins and low salt diet. The medical issues the patient is following up for include All identified problems b elow, gastric reflux, high cholesterol, osteoporosis/osteopenia and other (vitamin d deficient, polycythemia, leukocytopenia, elevated lft's). Note for Follow up for chronic medical issues: feeling we ll- and bp is good and weight down 2 pounds- had blood flow screening and was normal- muscle aches if tries to increase crestor so trying to use as tolerated- migraines eb and flow- seem to go with seaso n change and does wake up withthme- - but much better than used to be- no severe migraines for years - no rotuine gerd- would like to talk to counselor about what to do with husbands dementia- and how to manage it, [ADDITIONAL REASON] Follow up tests - Date: (labs). Encounter Diagnosis: Hypercholesteremia (272.0), MIGRAINE, NOS (346.90), VITAMIN D DEFICIENCY, NOS (268.9), GERD (530.81), Fatty Liver (571.8), Stress Reaction (308.4) [facility] Office Visit On: 06-Oct-2013 10:18 Encounter Reason: Annual Medicare Exam - The patient had reviewed and updated the family history, medication/s, past medical history and social history. Yes the patient did have a mini mental status exam done today. The End: 06-Oct-2013 11:14 activities of daily living the patient needs help with are none. The patient has driven in past 6 months and put area rugs through house, but the patient has not had fecal incontinence, had urinary inco ntinence, missed or ran out of medications to soon, fallen in the past 6 months, gotten lost, has a medalert necklace or bracelet or put handrails in bathroom. The patient has completed the following pr eventative measures: mammography and colonoscopy. 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 The patient has noticed feeling something bad will happen (because of husbands situatio n). Other providers contributing to the patient's care are other: (chiropractor prn). Note for Annual Medicare Exam: she doesnt want pneumovax - has known hearing issue and has hearing aides but need repaired, [ADDITIONAL REASON] Well Women Exam - The patient feels well with no complaints, has good energy level and is sleeping well. Pap smear: date of last pap: (years ago). Contraceptive history: The patient is not using any method of contraception at this time. Patient exercises a daily. The patient's libido is normal. The patient reports that she performs monthly self breast exam (occasionally does them) . Calcium intake includes 1200 mg with Vit D daily supplement and 1 serving milk daily (on cereal). The patient has been using hormone replacement therapy (premarin cream prn), while she denies the use of oral contraceptives. Menstruation: Last menstrual period date: (post-bhargavi). Note for Well Women Exam: occ breaxt check and nolumps and no vaginal bleeding Encounter Diagnosis: Annual Medicare Physical (V70.0), Well Woman Exam , Medicare (V76.2) (Renamed from Well Woman Exam , Medicare (V76.2, V72.31)) [facility] Office Visit On: 06-Aug-2013 9:44 Encounter Reason: Follow up for chronic medical issues - The patient feels well with no complaints, has good energy level and is sleeping well. Patient has been compliant with instructions. Current medication use: no taurus End: 06-Aug-2013 10:48 e effects, compliant with dosing regimen and considered effective by patient. Patient sleeps 8 hours per night. Nutrition: balanced diet, supplemental vitamins and low salt diet. The medical issues the patient is following up for include All identified problems below, gastric reflux, high cholesterol, osteoporosis/osteopenia and other (vitamin d deficient, polycythemia, leukocytopenia, elevated lft's) . Note for Follow up for chronic medical issues: feels well weight up few pounds bp is good - no problems routinely withmigraine- she in general much better with leg andknee with therapy- - still doin g therapy at home and hleping- no more abd pain and had colonsocopy small polyp - repeat 5 years, [ADDITIONAL REASON] Follow up, Laboratory Test Results - Date: (07/21/13). 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 Patie End: 30-Apr-2013 10:32 nt has been compliant with instructions. Current medication use: no side effects, compliant with dosing regimen and considered effective by patient. Patient sleeps 8 hours per night. Nutrition: balanced diet, supplemental vitamins and low salt diet. The medical issues the patient is following up for include All identified problems below, gastric reflux, high cholesterol, osteoporosis/osteopenia and ot her (vitamin d deficient, polycythemia, leukocytopenia, elevated lft's). Note for Follow up for chronic medical issues: in general doing better with her abdomen - not much pain and watching foods that bother her -like lettuce- - she has colosnocopy sunday- already saw naz-- she willing to do pt for back revieweed mri - she thinks crestor makes arms and legs worse- bp good- , [ADDITIONAL REASON] Follow up tests - Diagnostic tests include MRI (spine) and other (labs). Date: (04/04/13). 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 Patient has been compliant with instructions. Current medication use: no side effects and compliant with dosing regimen. The patient feels well End: 14-Apr-2013 21:26 with minor complaints (no pain today, just a tenderness or soreness- llq), has good energy level and is sleeping well. Patient sleeps 8 hours per night. Note for Follow up ER: yesterday am woke up fro m her sleep 1 am with left lower quadrant pain- feels better no diarrhea- - didnt have any - her apptetite wasnt good yesterday but today better- no feel like had temp no vomit althought yeterday little nausea- she had normal bm yesterday no blood- today small bm- er - had thickening of sigmoid colon and small bowel-= not taking aspirin , [ADDITIONAL REASON] Back Pain - Note for Back pain: still having back pain right leg pain despite pt- worse right than left and some numbness left foot- not right more pain- Encounter Diagnosis: Left lower quadrant pain (789.04), Thickened small bowel (569.89), LOW BACK PAIN WITH RADICULOPATHY (724.4) [facility] Office Visit On: 13-Jan-2013 8:58 Encounter Reason: Follow up for chronic medical issues - The patient feels well with no complaints, has good energy level and is sleeping well. Patient has been compliant with instructions. Current medication use: experi End: 13-Jan-2013 9:49 encing side effects (muscle pain in arms from crestor??), compliant with dosing regimen and considered effective by patient. Patient sleeps 8 hours per night. Nutrition: balanced diet, supplemental evan mins and low salt diet. The medical issues the patient is following up for include All identified problems below, gastric reflux, high cholesterol, osteoporosis/osteopenia and other (vitamin d deficient , polycythemia, leukocytopenia, elevated lft's). Note for Follow up for chronic medical issues: she is feeling well- bp is great she is noticing some issues with her knee walking down steps getting in and out of car and kneeling on it a problem- she will give crestor a rest to see if helps- - taking 4 imes a week - very active- maybe more carbs no gerd routinely bp is good - headaches have been prettygood, [ADDITIONAL REASON] Follow up, Laboratory Test Results - Date: (01/02/13). 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 Patient has been compliant with instructions. Current medication use: no taurus End: 07-Oct-2012 11:29 e effects, compliant with dosing regimen and considered effective by patient. Patient sleeps 8 hours per night. Nutrition: balanced diet, supplemental vitamins and low salt diet. The medical issues the patient is following up for include All identified problems below, gastric reflux, high cholesterol, osteoporosis/osteopenia and other (vitamin d deficient, polycythemia, leukocytopenia, elevated lft's) . Note for Follow up for chronic medical issues: feeling pretty good - nothing really new - migraines betteer no side effects of topamax and tolerating crestor, [ADDITIONAL REASON] Follow up, Laboratory Test Results - Date: (09/30/12- in scanned documents). 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 Date: (07/18/12). Follow up visit with no current symptoms. Note for Discuss procedure results: she isx takign the appropriate amount of v End: 19-Aug-2012 20:23 it d- but only one calcium a day- so encoruage bid - she was trying to get on treadmill 30 min a day- but not doing as routinely becuase of arthritis Encounter Diagnosis: Osteopenia (733.90), VITAMIN D DEFICIENCY, NOS (268.9) [facility] Office Visit On: 10-Jun-2012 10:59 Encounter Reason: Follow up for chronic medical issues - The patient feels well with no complaints, has good energy level and is sleeping well. Patient has been compliant with instructions. Current medication use: no taurus End: 10-Jun-2012 11:57 e effects, compliant with dosing regimen and considered effective by patient. Patient sleeps 8 hours per night. Nutrition: balanced diet, supplemental vitamins and low salt diet. The medical issues the patient is following up for include All identified problems below, gastric reflux, high cholesterol, osteoporosis/osteopenia and other (vitamin d deficient, polycythemia, leukocytopenia, elevated lft's) . Note for Follow up for chronic medical issues: feeling pretty good- bp reasonable- no gerd- taking crestor 4 times a week- chol better not great, [ADDITIONAL REASON] Follow up, Laboratory Test Results - Date: (06/03/12- on paper). Encounter Diagnosis: Hypercholesteremia (272.0), MIGRAINE, NOS (346.90), Unspecified menopausal and postmenopausal disorder (627.9), Fatty Liver (571.8), GERD (530.81), VITAMIN D DEFICIENCY, NOS (268.9), Osteopenia (733.90), screening [facility] Office Visit On: 06-Feb-2012 10:20 Encounter Reason: Follow up for chronic medical issues - The patient feels well with no complaints, has good energy level and is sleeping well. Patient has been compliant with instructions. Current medication use: no taurus End: 06-Feb-2012 11:15 e effects, compliant with dosing regimen and considered effective by patient. Patient sleeps 8 hours per night. Impact of disease: no overall impact. Nutrition: balanced diet, supplemental vitamins and low salt diet. The medical issues the patient is following up for include All identified problems below, gastric reflux, high cholesterol, osteoporosis/osteopenia and other (vitamin d deficient, polycyt hemia, leukocytopenia, elevated lft's). Note for Follow up for chronic medical issues: bp at hoem 120/78-- in general feeling pretty good- no gerd - no significant headaches only ones related to shoul davian and neck- no migraines- she tried backing off crestor more and chol went back up - so she will go back to prior dose doesnt think aching from crestor, [ADDITIONAL REASON] Follow up tests - Diagnostic tests include other (labs). Date: (01/25/12). 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 Patient has been compliant with instruct End: 10-Oct-2011 12:05 ions. Current medication use: no side effects and compliant with dosing regimen. Patient sleeps 8 hours per night. Nutrition: balanced diet, no supplemental vitamins & iron and low salt diet. The me dical issues the patient is following up for include All identified problems below, gastric reflux, high cholesterol, osteoporosis/osteopenia and other (vitamin d deficient, polycythemia, leukocytopenia , elevated lft's). Note for Follow up for chronic medical issues: Pt is still seeing Dr. Ayala for her right arm- had MRI done and going over results with him today.- she saw faby and had pt - for 6 weeks - got cortisone shot in shoulder thought might help but came back so awaiting mri results- no routine migraines - weight stable and bp is stable- - no gerd - doing treadmill and feels good - sade erating crestor couple times a week and taking fish oik couple times a day , [ADDITIONAL REASON] Follow up, Laboratory Test Results - Date: (09/04/11). 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 Patient has been compliant with instructions. Current medication use: no side effects and compliant with dosing regimen. Renetta kaye sleeps 8 hours per night. Nutrition: balanced diet, no supplemental vitamins & iron and low salt diet. The medical issues the patient is following up for include All identified problems below, gastric reflux, high cholesterol, osteoporosis/osteopenia and other (vitamin d deficient, polycythemia, leukocytopenia, elevated lft's). weight : ( 136). Note for Follow up for chronic medical issues: couldnt stand simvistatin so went back on crestor -going on and off and still making right arm hurt and difficult to raise up- and goes into neck- chiropractor little help- no weakness in arm or numbne ss- trying ibuprofen some relief sometimes not- no routien migraines - no gerd , [ADDITIONAL REASON] Follow up, Laboratory Test Results - Date: (06/05/11). 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 Patient has been compliant with instructions. Current medication use: experi End: 22-Feb-2011 12:34 encing side effects (new cholesterol meds and it caused me to have aches so I went off it for a few days and now I am back on it to see wha happens) and compliant with dosing regimen. Patient sleeps 8 h ours per night. Nutrition: balanced diet, no supplemental vitamins & iron and low salt diet. The medical issues the patient is following up for include All identified problems below, gastric reflux, high cholesterol, osteoporosis/osteopenia and other (vitamin d deficient, polycythemia, leukocytopenia, elevated lft's). weight : (home- 138). Note for Follow up for chronic medical issues: she had b oth cataracts done and doing well- she has normal bp - her weight is stable- her vit d 3 level back down went off supplemental- 7000 units aweek so will go back to that-no significant migraines, [ADDITIONAL REASON] Follow up, Laboratory Test Results - Date: (02.10.11). 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 Surgical procedures include: other (cataract - on OS). Date of procedure: (01/09/11) . Th End: 30-Dec-2010 14:34 ere have been no problems with general anesthesia or blood/blood products. 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 Patient has been compliant with instructions. Current medication use: experi End: 10-Oct-2010 10:28 encing side effects (mild myalgia from crestor but pt states its tolerable) and compliant with dosing regimen. Patient sleeps 8 hours per night. Nutrition: balanced diet, no supplemental vitamins & iron and low salt diet. The medical issues the patient is following up for include All identified problems below, gastric reflux, high cholesterol, osteoporosis/osteopenia and other (vitamin d deficient , polycythemia, leukocytopenia, elevated lft's). weight : (home- 138). Note for Follow up for chronic medical issues: she went to pt and they gave her home exercise program which helped some but then got shoulder sx while doing- she thinks maybe though may be related to crestor becuase shoveling ok but laying down trying to get up hard to get out of bed- she tried off crestor and did help some but w as doing pt at the time- she is back on again- lets stop for a month-then she will call with update and let me know- she is getting cataract taken care of think it is causing her camp-- she is seeing eye doctor- she isnt having migrainaes nopt routienly- no gerd- , [ADDITIONAL REASON] Follow up, Laboratory Test Results - Date: (10/03/10). 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 Patient has been compliant End: 13-Jun-2010 9:59 with instructions. Current medication use: experiencing side effects (mild myalgia from crestor but pt states its tolerable) and compliant with dosing regimen. Patient sleeps 8 hours per night. Nutriti on: balanced diet, no supplemental vitamins & iron and low salt diet. The medical issues the patient is following up for include All identified problems below, gastric reflux, high cholesterol, oste oporosis/osteopenia and other (vitamin d deficient, polycythemia, leukocytopenia, elevated lft's). weight : (home- 140). Note for Follow up for chronic medical issues: back bothering her when getting out of bed - or sitting in car- - left leg to foot pain- little weak /numb- no trouble holding bowel or bladder -wasnt sure whether this from statin or not- topamax has kept the headaches down and hasnt had significant migraine for years- no gerd- shehasnt been as faithful with water drinking and diet villaseñor- she has missed a few chol meds- didnt do as much exercise either, [ADDITIONAL REASON] Follow up, Laboratory Test Results - Date: (06/09/10). 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 Patient has been compliant with instructions. Current medication use: experi End: 14-Feb-2010 10:52 encing side effects (mild myalgia from crestor but pt states its tolerable) and compliant with dosing regimen. Patient sleeps 8 hours per night. Nutrition: balanced diet ,no supplemental vitamins & iron and low salt diet. The medical issues the patient is following up for include All identified problems below ,gastric reflux ,high cholesterol ,osteoporosis/osteopenia and other (vitamin d deficient , polycythemia, leukocytopenia, elevated lft's). blood pressure range : (120's/60's) and weight :. Note for Follow up for chronic medical issues: achey when gets up- doesnt last significantly all day- no gerd - bp is good- she hasnt been taking weekly vit d- she is having little allergy type headaches not migraine, [ADDITIONAL REASON] Follow up, Diagnostic Procedure Results - Diagnostic tests include other (bone dexa). Date: (01/11). , [ADDITIONAL REASON] Follow up, Laboratory Test Results - Date: (02/07). 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 Patient has been compliant with instructions. Current medication use: experi End: 15-Oct-2009 14:03 encing side effects (mild myalgia from crestor but pt states its tolerable) and compliant with dosing regimen. Patient sleeps 8 hours per night. Nutrition: balanced diet ,no supplemental vitamins & iron and low salt diet. The medical issues the patient is following up for include All identified problems below ,gastric reflux ,high cholesterol ,osteoporosis/osteopenia and other (vitamin d deficient , polycythemia, leukocytopenia, elevated lft's). blood pressure range : (120's/60's) and weight :. Note for Follow up for chronic medical issues: she is feeling well- taking crestor daily --not significant side efect at this point-, [ADDITIONAL REASON] Follow up, Laboratory Test Results - Date: (10/06/09). 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 Patient has been compliant with instructions. Current medication use: no taurus End: 07-Jul-2009 13:49 e effects and compliant with dosing regimen. Patient sleeps 8 hours per night. Nutrition: balanced diet ,no supplemental vitamins & iron and low salt diet. The medical issues the patient is followin g up for include All identified problems below ,gastric reflux ,high cholesterol ,osteoporosis/osteopenia and other (vitamin d deficient, polycythemia, leukocytopenia, elevated lft's). blood pressure ra nge : (120's/60's) and weight :. Note for Follow up for chronic medical issues: she was nervous driving here today witwhether - is tolerating the crestor no gerd and discussed fatty , [ADDITIONAL REASON] Follow up, Laboratory Test Results - Date: (06/30/09). 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 Patient has been compliant with instructions. Current medication use: no taurus End: 22-Mar-2009 23:22 e effects and compliant with dosing regimen. Patient sleeps 8 hours per night. Nutrition: balanced diet ,supplemental vitamins and low salt diet. The medical issues the patient is following up for inclu de All identified problems below ,high cholesterol ,osteoporosis/osteopenia and other (polycythemia, leukocytopenia). Note for Follow up for chronic medical issues: no gerd - not alot of migraines on topamax and it is good for her-- feels well and said neck pain better- some arm aching since crestor- doesnt want to go up on dose-- , [ADDITIONAL REASON] Follow up, Laboratory Test Results - Date: (03/10/09). 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 Patient has been compliant with instructions. Current medication use: experi End: 18-Nov-2008 14:42 encing side effects (crestor makes her alittle sore, not too bad) and compliant with dosing regimen. Patient sleeps 7 hours per night. Nutrition: balanced diet and supplemental vitamins. The medical iss ues the patient is following up for include All identified problems below ,gastric reflux ,high cholesterol ,osteoporosis/osteopenia and other (leukocytopenia, migraine). blood pressure range : (120's/7 0's) and weight :. Note for Follow up for chronic medical issues: gets migraines not oftne- uses excedrin migraine and this works- she isnt having gerd and seldom has a bp in 130 range-- most of time 115-120 -60- 70, [ADDITIONAL REASON] Follow up, Laboratory Test Results - Date: (09/07/08). Encounter Diagnosis: GERD (530.81), MIGRAINE, NOS (346.90), Hypercholesteremia (272.0), Leukocytopenia, unspecified (288.50), Osteopenia (733.90), polycythemia [facility] Office Visit On: 07-Aug-2008 10:28 Encounter Reason: Follow up for chronic medical issues - The patient feels well with no complaints ,has good energy level and is sleeping well. Patient has been compliant with instructions. Current medication use: no taurus End: 09-Aug-2008 22:21 e effects and compliant with dosing regimen. Patient sleeps 7 hours per night. Nutrition: balanced diet and supplemental vitamins. The medical issues the patient is following up for include All identifi ed problems below ,gastric reflux ,high cholesterol ,osteoporosis/osteopenia and other (leukocytopenia, cervical radiculopathy). blood pressure range : (110's/70's) and weight :. Note for Follow up for chronic medical issues: not much chest pain migraine or gerd, [ADDITIONAL REASON] Follow up, Laboratory Test Results - Date: (07/20/08). Encounter Diagnosis: Hypercholesteremia (272.0), polycythemia, Leukocytopenia, unspecified (288.50), MIGRAINE, NOS (346.90), GERD (530.81) [facility] Office Visit On: 20-Apr-2008 11:30 Encounter Reason: Follow up Meds - The patient feels well with no complaints ,has good energy level and is sleeping well. Patient has been compliant with instructions. Current medication use: no side effects and complian End: 20-Apr-2008 23:28 t with dosing regimen. Patient sleeps 7 hours per night. Note for Follow up Meds: f/u on topamax and imitrex----discussed osteopenia=-- she is not taking calcium and vit d routinely-- topamax helping without side effects== less often-- she is happy with the dose- she occ used imiotrex but rarely needs-- no problems with this-- pfts are normal--- not really have much of the chest pain any more- no sx with exertion- she is taking crestor without problems, [ADDITIONAL REASON] Follow up, Laboratory Test Results - Date: (04/16/08). , [ADDITIONAL REASON] Follow up, Diagnostic Procedure Results - Diagnostic tests include other (bone d exa). Date: (02/12/08). Encounter Diagnosis: Osteopenia (733.90), Hypercholesteremia (272.0), Chest pain (786.59), Leukocytopenia, unspecified (288.50), polycythemia [facility] Office Visit On: 27-Feb-2008 9:27 Encounter Reason: Shingles - The onset of the shingles has been sudden and has been occurring in a persistent pattern for 4 days. The course has been constant. The shingles is characterized as red and raised above the sk End: 27-Feb-2008 10:24 in. The rash was first seen on the back. There has been no progression of the rash. The symptoms have been associated with itching and pain. Encounter Diagnosis: SHINGLES (053.9) [facility] Office Visit On: 12-Feb-2008 11:36 Encounter Reason: Follow up tests - Diagnostic tests include chest X-ray ,treadmill exercise stress test and X-Ray (lumbar/cervical spine). Date: (01/27/08). Follow up visit with no current symptoms. Note for Follow up t End: 13-Feb-2008 22:24 ests: leg is better with extension exercises-- chest xray shows emphysema- didnt smoke- not alot of second hand exposure - no chemical exposure-- she sometimes feels smells trigger migraines-- she take s excedrin migraine daily- for migraines- her chol is way high-- tried lipitor and red yeast rice and didnt tolerate-- migraines and achesEncounter Diagnosis: MIGRAINE, NOS (346.90), Pain in limb (729.5), Leukocytopenia, unspecified (288.50), Hypercholesteremia (272.0), Cervical radiculopathy (723.4), polycythemia, elevated albumin, abnormal spirometry [facility] Office Visit On: 23-Jan-2008 10:36 Encounter Reason: Follow up for chronic medical issues - The patient feels well with no complaints ,has good energy level and is sleeping well. Patient has been compliant with instructions. Current medication use: no taurus End: 23-Jan-2008 21:46 e effects. Patient sleeps 7 hours per night. Impact of disease: no overall impact. Nutrition: balanced diet. The medical issues the patient is following up for include All identified problems below ,ast hma ,blood sugar issues ,cardiac issues ,COPD ,depression ,fibromyalgia ,gastric reflux ,high blood pressure ,high cholesterol ,hypothyroid ,kidney problems ,osteoarthritis ,osteoporosis/osteopenia ,oth er (leuckocyopenia, diarrhea, GERD) and peripheral vascular disease. Note for Follow up for chronic medical issues: she doesnt have gerd- takes the prilosec- she had colonsocopy for diarrhea and was n eg and diarrhea gone-- - she has not had egd-- she is on for nausea associated with migraine-- not really for reflux-- she doesnt have much headaches when takes it too- breathing has been pretty good-- no real change in breathingEncounter Diagnosis: Leukocytopenia, unspecified (288.50), MIGRAINE, NOS (346.90), Hypercholesteremia (272.0), postmenopausal without estrogen, Chest pain (786.59), Pain in limb (729.5) [facility] Office Visit On: 04-Jan-2007 12:29 Encounter Reason: Follow up, Laboratory Test Results - Date: (10/26/06- on face sheet). Note for Follow up, Laboratory Test Results: diarrhea gone-- had colonoscopy done and normal-- cervical radiculopathy-- neck and ar End: 18-Jun-2007 22:48 m pain still there -- she didnt do therapy yet -- she has pain with opposition and some arm pain in upper arm -- no gerd-doesnt want chol pills - tried RYR and lipitor and couldnt tolerate-- lets follow up in 3 mos- still some diarrhea- not as bad-- has hypoglycmeia on labs- should eat small freq meals and high protein and low carbs- told can be a precursor to diabetes must diet and exercise - need to followup chol and leukopenia Encounter Diagnosis: Diarrhea (787.91), Leukocytopenia, unspecified (288.50), Hypercholesteremia (272.0), Cervical radiculopathy (723.4) [facility] Erroneous Entry On: 14-Dec-2006 14:18 [facility] End: 14-Dec-2006 14:23 Office Visit On: 16-Oct-2006 11:02 Encounter Reason: Follow up, Laboratory Test Results - Lab results: abnormal blood lipids and other (stool culture, sed rate, TSH, UA). Date: (10-03). Current symptoms/reason for visit include/s Symptoms include abdominal End: 17-Oct-2006 11:45 pain (with bowelmovements) and other (diarrhea). Encounter Diagnosis: GERD (530.81), Diarrhea (787.91), Leukocytopenia, unspecified (288.50), Hypercholesteremia (272.0), Family history of diabetes mellitus (V18.0), Cervical radiculopathy (723.4) [facility] Historical Summary On: 08-Oct-2006 7:24 [facility] End: 08-Oct-2006 7:26 Office Visit On: 04-Oct-2006 10:53 Encounter Reason: Diarrhea - The onset of the diarrhea has been gradual and has been occurring in a persistent pattern for 4 weeks. The course has been constant. Note for Diarrhea: Keopectate, Prilosec. Most mornings w End: 04-Oct-2006 20:32 andria up with black coating. Is normally constipated. Stool is sometimes black and sometimes brown. Sometimes can't control stool. Hx of hemmorroids. Has noted bloody stool at times. , [ADDITIONAL REASON] new patient female physical - Last seen between 3-6 months ago. General health: feels well with no complaints ,has good energy level and is sleeping well (sometimes wakes up and can 't go back to sleep). The patient's appetite is normal. Nutrition: normal/adequate. 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 Sleeps on average 7 hours per night. Normal bowel and bladder habits. screening, mammography (apr 04) and screening, Pap smear (apr 04). Encounter Diagnosis: Diarrhea (787.91), Blood in stool (578.1), Low back pain (724.2), Cervical radiculopathy (723.4) [facility] Payers MedicareMARCELLA WENGERD; vandana guarantor
--- OUTSIDE RECORDS SUMMARY | 2018-08-07 06:48 | XMS RPT_ITS | Continuity of Care Document ---
:1940 Author Organization [facility] Address [address] [place] [address] Phone Care Team Providers Name Role Phone Aparna William DO Unavailable Brendan Koch MD Unavailable Hearing Services-- Ryan Lynch Unavailable Dr. Tone Childs Unavailable Shoaib Salmon Unavailable Kia Mejia Unavailable Unavailable Rabia Law Unavailable Unavailable Unavailable Unavailable Problems Name Dates Details Amnesia (R41.3, 780.93) Comments: 2 episodes think more likely tia vs transient global amnesia Status: Active Anxiety (F41.9, 300.00) Status: Active [...] Active Elevated hemoglobin A1c (R73.09, 790.29) Comments: great control Status: Active Elevated LFTs (R94.5, 790.6) [...] Status: Active Fatty liver (K76.0, 571.8) Comments: continue risk factor modification Status: Active Gastroesophageal reflux disease without esophagitis (K21.9, 530.81) Comments: controlled Status: Active Hypercholesteremia (E78.00, 272.0) Comments: pretty good level for her now- she not tolerate higher doses Status: Active Influenza vaccination declined (Renamed from Refused influenza vaccine) (Z28.21, V64.06) Status: Active Influenza vaccination declined (Renamed from Refused influenza vaccine) (Z28.21, V64.06) Status: Active 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, 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) Status: Active Leukopenia, unspecified type (D72.819, 288.50) [...] Active Thickened small bowel (569.89) Status: Active TIA (transient ischemic attack) (G45.9, 435.9) Comments: I dont believe this is transient global amnesia- talked with Dr espinal inpatient nursing aide and she agree not likely tga but more possibly tia- she has had workup- and doesnt seem to be her bp-- need her to followup again with him to verify- eeg was neg as well Status: Active Unspecified menopausal and perimenopausal disorder (N95.9, 627.9) Status: Active Vitamin D deficiency, unspecified (E55.9, 268.9) Comments: chronic stable-continue present regimen Status: Active Medications Name Dates Details Asmanex HFA 100 MCG/ACT Inhalation Aerosol 2 (two) Puff puffs q am for 0 days Quantity: 3 {Inhalation} Refills: 0 Ordered:14-Jun-2018 Fast DO, Aparna AFast DO, Aparna A Start : 14-Jun-2018 Active Aspirin EC 325 MG Oral Tablet Delayed Release 1 (one) Tablet qd for 0 days Quantity: 30 {Tablet} Refills: 0 Ordered:24-Apr-2018 Aparna William DO DO, Aparna A Start : 24-Apr-2018 Active Comments:take with food Atorvastatin Calcium 10 MG Oral Tablet 1 (one) Tablet qd for 0 days Quantity: 30 {Tablet} Refills: 3 Ordered:03-Jun-2018 Stewart GARCIA, Aparna AFast DO, Aparna A Start : 03-Jun-2018 Active CALCIUM CITRATE + (Oral Tablet) 1 Tablet qd for 30 days Quantity: 30 {Tablet} Refills: 0 Ordered:23-Oct-2016 Caryn Camacho Start : 22-Feb-2011 Active CloNIDine HCl 0.1 MG Oral Tablet 1 (one) Tablet Tablet qd prn for 0 days Quantity: 30 {Tablet} Refills: 0 Ordered:24-Apr-2018 Kia Mejia Start : 24-Apr-2018 Active Famotidine 20 MG Oral Tablet 1 (one) Tablet daily for 0 days Quantity: 30 {Tablet} Refills: 6 Ordered:08-Mar-2018 Aparna William DO, DO, Aparna A Start : 08-Mar-2018 Active FISH OIL, 300MG (Oral Capsule) 1 Capsule Daily for 0 days Refills: 0 Ordered:16-Oct-2006 Caryn Camacho Start : 16-Oct-2006 Active HYOSCYAMINE SULFATE, 0.125MG (Oral Tablet) 1 tab prn (0.125 MG) Active Imitrex 25 MG Oral Tablet 1 Tablet QD PRN for 0 days Quantity: 10 {Tablet} Refills: 3 Ordered:08-Mar-2018 Stewart GARCIA, Aparna Lerma DO, Aparna A Start : 08-Mar-2018 Active LORazepam 0.5 MG Oral Tablet 1 (one) Tablet Tablet qd prn anxiety for 30 days Refills: 2 Ordered:11-Jan-2018 Kia Mejia Start : 11-Jan-2018 Active Comments:five - dont drive while taking this medicine Premarin 0.625 MG/GM Vaginal Cream uad Cream prn for 0 days Quantity: 42 {Gram} Refills: 3 Ordered:25-Oct-2017 Stewart GARCIA, Aparna AFast DO, Aparna A Start : 25-Oct-2017 Active VITAMIN D, 1000UNIT (Oral Tablet) 3 (three) Tablet qd for 0 days Quantity: 90 {Tablet} Refills: 0 Ordered:10-Jun-2012 Caryn Camacho Start : 06-Feb-2012 Active VITAMIN E, 400UNIT (Oral Capsule) 2 (two) Capsule qd for 30 days Quantity: 30 {Capsule} Refills: 0 Ordered:17-Aug-2015 Fast DO Aparna AFast DO, Aparna A Start : 17-Aug-2015 Active Topamax 25 MG Oral Tablet 1 (one) Tablet daily for 0 days Quantity: 30 {Tablet} Refills: 3 Ordered:08-Mar-2018 Gifty Mejiasea Start : 03-Dec-2017 End : 08-Mar-2018 Inactive CRESTOR, 10MG (Oral Tablet) 1 (one) Tablet couple times week for 0 days Quantity: 30 {Tablet} Refills: 3 Ordered:10-Aug-2014 Davida AFast DO, Aparna A Start : 10-Aug-2014 End : 10-Aug-2014 Discontinued ERGOCALCIFEROL, 29313VHZZ (Oral Capsule) 1 (one) Capsule q week for 0 days Quantity: 4 {Capsule} Refills: 0 Ordered:06-Feb-2012 Davida AFast DO, Aparna A Start : [...] days Quantity: 30 {Capsule} Refills: 3 Ordered:03-Dec-2013 Davida AFast DO, Aparna A Start : 03-Dec-2013 End : 03-Dec-2013 Discontinued Pravastatin Sodium 10 MG Oral Tablet 1 (one) Tablet qd for 0 days Quantity: 30 {Tablet} Refills: 3 Ordered:18-Apr-2016 Fast DO Aparna AFast DO, Aparna A Start : 18-Apr-2016 End : 18-Apr-2016 Discontinued PRAVASTATIN SODIUM, 20MG (Oral Tablet) 1 (one) Tablet qd for 0 days Quantity: 30 {Tablet} Refills: 4 Ordered:15-Sep-2015 Aparna William DO, DO, Aparna A Start : 13-Apr-2015 End [...] Start : 10-Oct-2011 End : 10-Oct-2011 Discontinued Symbicort 80-4.5 MCG/ACT Inhalation Aerosol 2 (two) Puff puffs q am for 0 days Quantity: 3 {Inhalation} Refills: 0 Ordered:14-Jun-2018 Aparna William DO, DO, Aparna A Start : 14-Jun-2018 End : 14-Jun-2018 Discontinued VALTREX, 1GM (Oral Tablet) 1 (one) [...] both 2010 Tonsillectomy Completed Date Value Details 30-May-2018 Stress Report Result: Comments: See Note; NOTES: [facility] Cardiovascular Services [address] [place] [id number] MR#: [id number] Acct: [id number] Name: JACI BEE Rep #: [id number] : 0 1940 77 From: Brendan Koch MD Primary Care: Aparna William DO Status: REG CLI Ordering Dr: Sex: F C Stress Test Report Date: 05/30/2018 Procedure: Exercise tolerance test/imaging study Indicati ons: Chest pain Consent: Per the patient Procedure: The patient exercised on a Ayo protocol for 6 minutes and 30 seconds completing Stage II and 30 seconds of Stage III achieving a peak heart rate of 155 bpm (108 % predicted maximal heart rate) with a peak blood pressure 198/80 mmHg and a peak MET capacity of 7 METs. The baseline ECG demonstrated normal sinus rhythm. The peak exercise ECG demons trated no obvious ECG changes. There were occasional PVCs during exercise and recovery. The functional capacity was considered average. There was vague chest discomfort at peak exercise with spontane ous resolution in recovery. The examination was discontinued secondary to dyspnea. Impression: 1. Technically adequate (percent predicted maximal heart rate greater than 85%) exercise tolerance test 2. Peak exercise ECG with no obvious ECG changes 3. There were occasional PVCs during exercise and recovery 4. Nuclear images pending Myocardial perfusion imaging study: Technique: The patient was in jected with 11.4 mCi of technetium 99m Cardiolite and subsequently rest SPECT Cardiolite nuclear imaging was obtained in the horizontal long, vertical long, and short axis views. The patient exercised o n a Ayo protocol for 6 minutes and 30 seconds completing Stage II and 30 seconds of Stage III achieving a peak heart rate of 155 bpm (108 % predicted maximal heart rate) with a peak blood pressure 198 /80 mmHg and a peak MET capacity of 7 METs. The patient was injected with 31.9 mCi of technetium 99m Cardiolite and subsequently stress SPECT Cardiolite nuclear imaging was obtained in the horizontal lo ng, vertical long, and short axis views. A gated Cardiolite study at peak stress was obtained. Interpretation: Rest and stress SPECT Cardiolite nuclear imaging status post realignment, normalization, and attenuation correction, demonstrates the appearance of relative uniform tracer uptake and myocardial perfusion appearing within normal limits. There is end systolic thickening and brighteningu. The gated Cardiolite study demonstrates myocardial thickening and inward wall motion. The reported LVEF is 76 %. Impression: 1. Rest and stress SPECT Cardiolite nuclear imaging demonstrate relative unifor m tracer uptake and myocardial perfusion appearing within normal limits. 2. The gated Cardiolite study reports an LVEF of 76 %. This note was generated with MiddleGate[employer] software. It may contain in correct words, spelling, and punctuation that were not noted in checking the note before signing. 05/30/18 1011 <Electronically signed by Brendan Koch MD> Date Brendan Koch MD CC: Aparna William DO; Brendan Koch MD Date Dictated: 05/30/18 1005 Date Transcribed: 05/30/18 100 Expanded Duty Dental Assistant: PM Signed 16-May-2018 Cardiology Visit Report Result: Comments: See Note; NOTES: [facility] [address] [place], [place] [address]kassandra. [address] [place] [address] OFFICE VISIT Date of Service: 05/16/18 MR#: [id number] Acct: [id number] Name: ANASTACIA BEE Rep #: [id number] : 1940 Provider: Brendan Koch MD Age/Sex: 77/F Location: [facility] Status: Signed HPI HPI Details: JACI BEE, is a 77 F who presents to the office today for outpati ent cardiovascular consultation based upon concerns of intermittent spiking high blood pressures and chest discomfort. She notes that she has had a long- standing history of being normo tensive and/or intermittently having low blood pressure. However she has been having episodes where she states her blood pressure will spike. She states her intermittent spiking blood pressures have bee n unexplained. She has undergone laboratory evaluation which have been unrevealing. She did have laboratory studies documenting her thyroid function tests performed earlier this year per medical records obtained from her PCP office with a TSH level at 3.7 being reported within normal range. She states when her blood pressure spikes it may stay elevated for a period of time and then gradually come ludivina n. When these events occur she may feel somewhat warm . She is unsure as to whether she is truly flushed or becomes diaphoretic. She does not recall having an associa scot accelerated heart rate. Her blood pressure was elevated upon arrival in the office today. It was rechecked with her blood pressure being approximately 140/84 mmHg-decreased compared to her blood pr essure on arrival. She also notes she has intermittent centralized chest pressure. This occurs at different times. It does not necessarily radiate nor is it associated with worsening symptoms such as d yspnea, nausea, emesis, or diaphoresis. It appears that she has undergone cardiovascular evaluation in the past. Based upon medical records available for review it appears she underwent a transthoracic echocardiogram on 01/01/2018. The results are as noted below. She also underwent an exercise tolerance test/imaging study on 01/10/2016. The results are as noted below. More recently she has had a renal artery duplex study performed. Per the report there was no suspicion of renal artery stenosis. He denies any history of orthopnea or PND. There has been no near syncope or syncope. Intake Vital Sign 05/16/18 Height 5 ft 3 in 05/16/18 Weight: 122 lb 05/16/18 Body Mass Index (BMI) 21.6 05/16/18 Blood Pressure 158/90 H Intake Visit Reasons: New Patient\Elevated BP-Dr. William referral Allergies codei ne Allergy (Verified 05/16/18 16:00) Other nabumetone Adverse Reaction (Unknown, Verified 05/16/18 16:00) Unknown Medications Famotidine [Pepcid] 20 mg PO DAILY 01/17/16 [History Confirmed 05/16/18] Southwick-3 Fatty Acids/Fish Oil [Southwick 3 Fish Oil Softgel] 1 ea PO 01/17/16 [History Confirmed 05/16/18] Vitamin E 400 unit PO 01/17/16 [History Confirmed 05/16/18] aspirin 325 mg tablet 325 mg PO DAILY [History Confirmed 05/16/18] atorvastatin 10 mg tablet 10 mg PO DAILY 05/15/18 [History Confirmed 05/16/18] budesonide-formoterol HFA 80 mcg-4.5 mcg/actuation aerosol inhaler 2 puff INHALATION DA ANA LUISA g 05/15/18 [History Confirmed 05/16/18] lorazepam 0.5 mg tablet 0.5 mg PO DAILY PRN tab 05/15/18 [History Confirmed 05/16/18] sumatriptan 25 mg tablet 25 mg PO DAILY PRN tab 05/15/18 [History Confir med 05/16/18] cholecalciferol (vitamin D3) 1,000 unit tablet 1,000 unit PO DAILY tab 05/16/18 [History Confirmed 05/16/18] coenzyme Q10 100 mg capsule 100 mg PO DAILY 05/16/18 [History Confirmed 8] lactobacillus combination no.9 4 billion cell capsule 4,000 mmu cells PO DAILY 05/16/18 [History Confirmed 05/16/18] [facility] Medical History Premature ventricular contraction (Acute) Hyperlipemia (Chronic) Diastolic dysfunction (Acute) GERD (gastroesophageal reflux disease) (Chronic) Essential hypertension (Acute) Surgical History (Reviewed 8 @ 16:03 by Senia Pineda) History of carpal tunnel surgery (Resolved) History of cataract surgery (Resolved) History of tonsillectomy (Resolved) Family History Father Myocardial infarction Sister CAD (coronary artery disease) History of coronary artery bypass surgery Mother Myocardial infarction Social History Smoking Status: Never smoker alcohol intake: never ROS Const Const: Positive for fatigue (increased); negative for weakness, weight gain, weight loss, frequent falls or excessive sweating Eyes Eyes: Negative for ch alka in vision, blurry vision or transient loss of vision ENT ENT: Negative for dizziness or balance problems Cardio Chest Pain: Yes Character: dull Onset: at rest, exercise Location: left chest Duratio n: hours Palpitations: Yes (occasional) feels like its: pounding Edema: None Muscle aches with walking: None Additional Details: Patient referred for elevated BP spikes that can last a couple of days. R kendra Respiratory: Negative for SOB with activity or SOB at rest GI GI: Negative vomiting or vomiting blood/hematemesis : Negative for hematuria Musc Musc: Positive for muscle aches/ myalgia (muscle cramps at night to bilat LE); negative for balance problems, muscle weakness or joint pain Skin Skin: Negative non-healing lesions or rash Neuro Neuro: Negative for weakness, blurry vision, dizziness, l ightheadedness, frequent falls or orthostatic symptoms Tristin Hematologic/Lymphatic: Negative for easy bleeding Endo Endo: Positive for fatigue (increased); negative for excessive sweating Psych Psych: Ne gative for anxiety or depression Allergy Allergy/Immunology: Negative for hives, Negative for rash Supplemental Info Transthoracic echocardiogram: 01/01/2018 Interpretation Summary Left ventricular sys tolic function is normal. The estimated ejection fraction is 60 %. Mild mitral valve prolapse, posterior leaflet Mild diffuse mitral valve thickening. Mild (1+) mitral valve insufficiency. Trivial tricu spid valve insufficiency. Moderate focal aortic valve calcification. Right ventricular systolic pressure estimated to be 30 mmHg. Normal diastology for age. Stress nuclear study: 01/10/2016 Resting EKG demonstrates normal sinus rhythm with a rate of 65 beats per minute. Normal intervals are noted. Resting blood pressure was 150/86. STRESS TEST: The patient exercised according to the regular Ayo pr otocol for a total duration of 5 minutes and 30 seconds. The maximum heart rate attained was 176 beats per minute, which was 121% of maximum predicted heart rate. The maximum workload attained was 7 MET S. At rest, the patient maintained sinus rhythm throughout the recording. At rest, there were no ST or T-wave changes noted to suggest ischemia. At peak exercise, upsloping ST changes only were noted, w hich did not meet the criteria for ischemia. Occasional premature ventricular complexes were noted. There were ventricular couplet beats also noted. No clinical angina was noted. The test was terminated due to leg fatigue. Resting blood pressure was 150/86 with a peak blood pressure of 182/90. Rate pressure product was 29,400. MYOCARDIAL PERFUSION PROTOCOL: 11.3 mCi of sestamibi was injected at rest . The patient exercised according to a regular Ayo protocol for a total duration of 5 minutes and 30 seconds attaining 121% of maximum predicted heart rate and a workload of 7 METS. At peak exercise, 33.1 mCi of sestamibi was injected. Stress images were obtained. Stress and rest images were reconstructed and compared in the short axis, vertical long and horizontal long axes. Gated images were also obtained. PERFUSION SPECT ANALYSIS: Review of the images demonstrated normal uptake of tracer noted in all areas of the myocardium. The resting images similarly demonstrated normal uptake of tracer not ed in all areas of the myocardium. No areas of reversibility are noted to suggest ischemia or infarct. GATED SPECT ANALYSIS: The gated ejection fraction is noted to be 74%. CONCLUSION: 1. Exercise jose luis cardial perfusion stress test with no evidence of ischemia at a moderate workload. 2. No clinical angina noted. 3. Occasional premature ventricular complexes only noted. 4. Excellent functional work cap acity. She had a renal artery duplex study performed recently on 05/06/2018 Interpretation Summary Dimensions of the intra-abdominal aorta appear normal, without evidence of aneurysmal dilatation. Kimber l artery velocities are bilaterally normal. Acceleration times are normal bilaterally. Renal- aortic ratios are also bilaterally normal. There is no evidence of hemodynamically significant renal artery stenosis on either side. The right cortical dimension is normal. The left cortical dimension is increased. Kidneys appear normal in size bilaterally. Assessment AND Plan 1. Essential hypertension I10 Plan The etiology of her intermittent elevated high blood pressure is uncertain at this time. There would be concern as to whether or not, as her secondary evaluation has been unremarkable thus far, kai brownlee could have still a secondary etiology such as a pheochromocytoma causing her intermittent blood pressure spikes even without all the classic associated symptoms and/or findings. Thus at the present t jane she will be asked to have a screening 24-hour urine for VMA/metanephrines, etc. If this is unremarkable and there appears to be no other obvious etiology for her intermittent blood pressure spikes and there is still concerns of underlying secondary causes she may need to be considered for further evaluation by either endocrinology and/or nephrology. In the meantime she is not going to be immedia tely placed on additional medical therapy as she notes her blood pressure is not elevated all the time and at times her blood pressure is actually low. Orders Orders: 2. Chest pain R07.9 Plan She does have chest discomfort. Again the etiology is uncertain. Her cardiovascular evaluation in the past is been unremarkable. She does comment on central precordial chest pressure. Based upon concerns of her blood pressure it is unclear whether this is related to her blood pressure changes or a separate issue. It may not be unreasonable to repeat her exercise tolerance test to evaluate for any obvious debbi dence of myocardial ischemia that has developed compared to her study 2 years ago that warrants further evaluation or care. She had a chest x-ray performed in December of this year. It appeared to be unrem arkable. If symptoms are otherwise unexplained and based on concerns of her hypertension she may need further evaluation of her great vessels with a chest CT scan for any obvious evidence of thoracic a ortic involvement. Orders Orders: 3. Hyperlipidemia E78.5 Plan She does have a history of hyperlipidemia. She is on lipid-lowering therapy. She is being followed by her primary care physician for this Orders Orders: Plan Detail Other Orders Orders: Additional Comments The above was discussed with the patient. She was agreeable to this approach. Thank you for allowing me to participate in the care o f your patient. Please don't hesitate to call if any issues arise. This note was generated using a voice recognition system and there may be incorrect words, spelling or punctuation that were not noted when reviewing the office note prior to saving. Follow Up 6 Weeks (PFM) Coding Level of Care Code Off vis,new,level 4 Diagnoses Essential hypertension I10 Chest pain R07.9 Hyperlipidemia E78.5 Cod ing Level of Care Code Off vis,new,level 4 Diagnoses Essential hypertension I10 Chest pain R07.9 Hyperlipidemia E78.5 05/16/182027 <Electronically signed by Brendan Koch MD> Date Brendan Koch MD Cosigner Signature: Date (if applicable) CC: Aparna William DO 16-May-2018 12 Lead EKG performed by BMS Result: Comments: See Note; NOTES: [facility] [address] [place] [address] 12 Lead EKG performed by BMS 05/16/181549 MR#: [id number] Acct: [id number] Name: JACI KIRK RD Rep #: [id number] : 1940 77 From: Brendan Koch MD Attending Dr: Brendan Koch MD Status: DEP AMB Ordering Dr: Brendan Koch MD Date: 05/16/18 Location: [facility] Sex: Shalini Al d: BMS/12 Lead EKG performed by [facility] ECG Report Interpretation Sinus Rhythm Poor R wave progressionElectronically signed on 05/16/2018 at 22:10 by Brendan Koch Software Version [id number] 05/16/18 2214 Date Brendan Koch MD CC: Aparna William DO Date Dictated: 05/16/181549 Date Transcribed: 05/16/181549 Expanded Duty Dental Assistant: PM Signed 06-May-2018 Renal Artery Duplex Result: Comments: See Note; NOTES: [facility] Cardiovascular Services [address] [place] [address] Renal Artery Duplex Ultrasound 05/06/18 0847 MR#: [id number] Acct: [id number] Name: JACI BEE Rep #: [id number] : 1940 77 From: Thomas Cool MD Attending Dr: Aparna William DO Status: REG CLI Ordering Dr: Aparna William DO Date: 05/06/18 Location: [facility] Sex: F C Admitted: Reason For Study: HYPERTENSION Right Renal Artery Left Renal Artery Right renal artery ostium Left renal artery ostium 71.2/19.1 108.0/26.4 RSV/EDV. PSV/EDV. Right renal artery proximal Left renal art danelle proximal PSV/EDV 121.0/32.6 PSV/EDV. 70.6/20.8 . Right renal artery mid 104.0/21.6 Left renal artery mid 66.5/16.2 PSV/EDV. PSV/EDV . Right renal artery distal Left renal artery distal 62.1/17.8 115 .0/32.8 PSV/EDV. PSV/EDV. Right RAR 1.3. Left RAR .69. Right Renal Parenchyma Left Renal Parenchyma Upper Pole Medula 38.5/10.4 Left upper pole medulla 20.2/6.1 PSV/EDV. PSV/EDV . Right upper pole medul la EDR .27 . Left upper pole medulla EDR .30 . Right upper pole medulla R.I. .73 . Left upper pole medulla R.I. .70 . Upper Richardson Cortx 28.4/9.2 PSV/EDV. UP Cortex 15.9/4.8 PSV/EDV. Right upper pole alise x EDR .32 . Left upper pole cortex EDR .30 . Right upper pole cortex R.I. .68 . Left upper pole cortex R.I. .70 . Right lower Pole medulla 24.4/7.3 Left lower Pole medulla 29.3/9.1 PSV/EDV . PSV/EDV . R ight lower pole medulla EDR .30 . Left lower pole medulla EDR .31 . Right lower pole medulla R.I. .70 . Left lower pole medulla R.I. .69 . Lower Pole Cortex 15.7/4.7 PSV/EDV. Lower Pole Cortx 29.6/9.1 P SV/EDV. Right lower pole cortex EDR .30 . Left lower pole cortex EDR .31 . Right lower pole cortex R.I. .70 . Left lower pole cortex R.I. .69 . Right Renal Hilar Left Renal Hilar Right Hilar avg 54.3/11 .9 PSV/EDV. LT Hilar avg 42.5/10.7 PSV/EDV . Right hilar acceleration time 51 Left hilar acceleration time 44 m/sec. m/sec. Right Renal Dimensions Left Renal Dimensions Right kidney size 10.3 cm . Left kidney size 10.0 cm . Right cortical dimension 1.5 cm . Left cortical dimension 1.6 cm . Aorta Proximal abdominal aorta 1.5 X 1.5 cm . Distal abdominal aorta 1.3 X 1.3 cm . Proximal abdominal aorta pea k systolic velocity is 90.3 cm/sec . Distal abdominal aorta peak systolic velocity is 89.4 cm/sec . Interpretation Summary Dimensions of the intra-abdominal aorta appear normal, without evidence of ane urysmal dilatation. Renal artery velocities are bilaterally normal. Acceleration times are normal bilaterally. Renal- aortic ratios are also bilaterally normal. There is no evidence of hemodynamically s ignificant renal artery stenosis on either side. The right cortical dimension is normal. The left cortical dimension is increased. Kidneys appear normal in size bilaterally. Ordering Physician: Aparna William Referring Physician: Aparna William Performed By: Gwen Childers RVT 05/06/182131 Date Thomas Cool MD CC: Aparna William DO Date Dictated: 05/06/18 0847 Date Transcribed: 05/06/182131 Expanded Duty Dental Assistant: Signed 06-Feb-2018 Electroencephalogram Result: Comments: See Note; NOTES: [facility] Pulmonary Services/Neurology [address] [place] [address] MR#: [id number] Acct: [id number] Name: JACI BEE Rep #: [id number] : 1940 77 From: Annika Salmon MD Referring Dr: Aparna William DO Status: REG CLI Ordering Dr: Date: Location: PSN Sex: F C - Electroencephalogram Date of [...] Dictated: 01/26/18 1023 Date Transcribed: 01/26/18 1023 Expanded Duty Dental Assistant: RSR Signed 27-Sep-2017 Pulmonary Function Test Result: Comments: See Note; NOTES: [facility] Pulmonary Services/Neurology [address] [place] [address] MR#: [id number] Acct: [id number] Name: JACI BEE Rep #: [id number] : 1940 76 From: Robert Rodriguez DO Referring Dr: Aparna William DO Status: REG CLI Ordering Dr: Date: Location: PS Sex: F C INTRODUCTION: The patient is [...] William DO Date Dictated: 09/27/176 Date Transcribed: 09/27/171335 Expanded Duty Dental Assistant: DB Signed 20-Sep-2017 SCREENING MAMM (CAD), BILAT Result: Comments: See Note; NOTES: [facility] Imaging Services [address] [place] [address] SCREENING MAMM (CAD), BILAT MR#: [id number] Acct: [id number] Name: JACI BEE Rep #: [id number] : 1940 F 76 From: Constantino Bryan MD PCP: Aparna William DO Status: REG CLI Study: SCREENING MAMM (CAD), BILAT Date of Exam: 09/20/17 Exam# [id number] Ordering Dr: Aparna William DO MAMMOGRAPHY - [...] delay biopsy of a clinically suspicious abnormality. [id number] Electronically Signed: Constantino Bryan MD at 11:06 EST Tel [phone], Service support , CC: Aparna William DO Expanded Duty Dental Assistant: Signed 23-Aug-2017 Liver Result: Comments: See Note; NOTES: [facility] Imaging Services [address] [place] [address] Liver MR#: [id number] Acct: [id number] Name: JACI BEE Rep #: [id number] : [birth year] F 76 From: Constantino Bryan MD PCP: Aparna William DO Status: REG CLI Study: Liver Date of Exam: 08/23/17 Exam# [id number] Ordering Dr: Aparna William DO STUDY: ABDOMINAL [...] Carl Bryan MD at 10:14 EST Tel [phone], Service support , CC: Aparna William DO Expanded Duty Dental Assistant: Signed 20-Aug-2017 Chest PA and Lateral Result: Comments: See Note; NOTES: [facility] Imaging Services [address] [place] [address] Chest PA and Lateral MR#: [id number] Acct: [id number] Name: JACI BEE #: [id number] : 1940 F 76 From: Constantino Bryan MD PCP: Aparna William DO Status: REG CLI Study: Chest PA and Lateral Date of Exam: 08/20/17 Exam# [id number] Ordering Dr: Aparna William DO STUDY: X-RAY [...] Constantino Bryan MD at 19:29 EST Tel [phone], Service support , CC: Aparna William DO Expanded Duty Dental Assistant: Signed 19-Sep-2016 Dexa Bone Density Study (HP) Result: Comments: See Note; NOTES: [facility] Imaging Services [address] [place] [address] Verdana 4d Dexa Bone Density Study (HP) MR#: [id number] Acct: [id number] Name: KEIKO BEE FARA Kassandra Rep #: [id number] : 1940 F 75 From: Constantino Bryan MD PCP: Aparna William DO Status: REG CLI Study: Dexa Bone Density Study () Date of Exam: 09/19/16 Exam# [id number] Ordering Dr: Aparna William DO STUDY: DUAL [...] Constantino Bryan MD at 14:02 EST Tel [phone], Service support [phone], CC: Apanra William DO Expanded Duty Dental Assistant: Signed 19-Sep-2016 SCREENING MAMM (CAD), BILAT Result: Comments: See Note; NOTES: [facility] Imaging Services [address] [place] [address] Verdana 4d SCREENING MAMM (CAD), BILAT MR#: [id number] Acct: [id number] Name: ROHITFERMINA Kassandra Rep #: [id number] : 1940 F 75 From: Constnatino Bryan MD PCP: Aparna William DO Status: REG CLI Study: SCREENING MAMM (CAD), BILAT Date of Exam: 09/19/16 Exam# [id number] Ordering Dr: Aparna William DO MAMMOGRAPHY - [...] delay biopsy of a clinically suspicious abnormality. [id number] Electronically Signed: Constantino Bryan MD at 15:03 EST Tel [phone], Service support [phone], CC: Aparna William DO Expanded Duty Dental Assistant: Signed 21-Jan-2016 Emergency Department Summary Result: Comments: See Note; NOTES: [facility] Medical Records Department [address] [place] [address] Emergency Department Summary MR#: [id number] Acct: [id number] Name: ROHITJACI Kassandra Rep #: [id number] : 1940 75 From: Erich Contreras MD PCP: Aparna William DO Status: [facility] ER DATE OF SERVICE: 01/17/2016 CHIEF COMPLAINT: Abdominal [...] Edwina Yadav C: Aparna William DO T: [facility] JOB: [id number] 01/21/16 0755 <Electronically signed by Erich Contreras MD> Date Erich Contreras MD Cosigner Signature (If Indicated): Date _ CC: Aparna William DO Date Dictated: 01/17/16939 Date Transcribed: 01/17/16939 Expanded Duty Dental Assistant: Signed 17-Jan-2016 Discharge Instruction Result: Comments: See Note; NOTES: [facility] Medical Records Department [address] [place] [address] Discharge Instruction 01/17/16 0834 MR#: [id number] Acct: [id number] Name: JACI BEE Rep #: [id number] : 1940 75 From: Erich Contreras MD [...] problems, contact your doctor. Call [facility] ([phone]) or report to the closest Emergency Room. Call 911 if necessary. 01/17/16 0835 &amp ;#60;Electronically signed by Erich Contreras MD> Date Erich Contreras MD Cosigner Signature (If Indicated): Date CC: Aparna William DO 17-Jan-2016 Abdomen/Pelvis without Cont Result: Comments: See Note; NOTES: [facility] Imaging Services [address] [place] [address] Verdana 4d Abdomen/Pelvis without Cont MR#: [id number] Acct: [id number] Name: JACI BEE Rep #: [id number] : 1940 F 75 From: Constantino Bryan MD PCP: Aparna William DO Status: REG ER Study: Abdomen/Pelvis without Cont Date of Exam: 01/17/16 Exam# [id number] Ord ering Dr: Erich Contreras MD STUDY: [...] Constantino Bryan MD at 8:11 EDT Tel [phone], Service support [phone], CC: Aparna William DO; Erich Contreras MD Expanded Duty Dental Assistant: Signed 10-Jan-2016 Echocardiogram Complete Result: Comments: See Note; NOTES: [facility] Cardiovascular Services [address] [place] [address] Echo Complete 01/10/16 0848 MR#: [id number] Acct: [id number] Name: JACI HA Rep #: [id number] : 1940 75 From: Bari Mosley MD Attending Dr: Aparna William DO Status: REG CLI Ordering Dr: Aparna William DO Date: 01/10/16 Location: [facility] Sex: F C Admitted: Reason For Study: [...] Physician: Aparna William Performed By: Terra Hurt, NIGEL, RVT 01/10/16 1229 Date Bari Mosley MD CC: Aparna William DO Date Dictated: 01/10/1648 Date Transcribed: 01/10/161228 Expanded Duty Dental Assistant: Signed 10-Jan-2016 Nuclear Stress Test - Treadmil Result: Comments: See Note; NOTES: [facility] Imaging Services [address] [place] [address] Verdana 4d Nuclear Stress Test - Treadmil MR#: [id number] Acct: [id number] N debbie: JACI BEE Rep #: [id number] : 1940 75 From: Bari Mosley MD Primary Care: Aparna William DO Status: REG CLI Ordering [...] capacity. Bari Mosley MD T: NTS JOB: [id number] 0 01/14/1609 <Electronically signed by Bari Mosley MD> Date Bari Mosley MD CC: Aparna William DO Date Dictated: 01/10/16933 Date Transcribed: 01/10/16933 Expanded Duty Dental Assistant: Signed 21-Dec-2015 EKG ([id number]) Comments: ekg showed normal sinus rhythym, normal axis, no acute st/t wave changes Result: [MEASUREMENTS ANALYSIS] Date of Test: 12/21/2015 11:21:34; Heart Rate: 71; WA Interval: 178; QRS: 88; QT Interval: 396; Corrected QT Interval (QTc): 415; P Wave Harrah: 54; QRS Wave Harrah: 12; T Wave Harrah: 45; Blood Pressure: 154/90 [ECG DIAGNOSTIC STATEMENTS] Date of Test: 12/21/2015 11:21:34; Summary: Sinus Rhythm WITHIN NORMAL LIMITS 17-Sep-2015 Bilat Scrn Digital AND CAD Result: Comments: See Note; NOTES: [facility] Imaging Services [address] [place] [address] Verdana 4d Bilat Scrn Digital AND CAD MR#: [id number] Acct: [id number] Name: JACI BEE Rep #: [id number] : 1940 F 74 From: Constantino Bryan MD PCP: Aparna William DO Status: REG CLI Study: Bilat Scrn Digital AND CAD Date of Exam: 09/17/15 Exam# [id number] Orde ring Dr: Aparna William DO MAMMOGRAPHY [...] delay biopsy of a clinically suspicious abnormality. [id number] Electronically Signed: Constantino Bryan MD at 14:44 EST Tel [phone], Service support [phone], CC: Aparna William DO Expanded Duty Dental Assistant: Signed 13-Apr-2015 S-C Jts Min 3 Views Result: Comments: See Note; NOTES: [facility] Imaging Services [address] [place] [address] Radiology Report MR#: [id number] Acct: [id number] Name: JACI BEE Rep #: [id number] : 1940 F 74 From: Constantino Bryan MD PCP: Aparna William DO Status: REG CLI Study: S-C Jts Min 3 Views Date of Exam: 04/13/15 Exam# [id number] Ordering Dr: Aparna William DO STUDY: X-RAY [...] Constantino Bryan MD at 15:10 EDT Tel [phone], Service s upport [phone], RAD/S-C Jts Min 3 Views IMPRESSION: Normal x-ray of the bilateral sternoclavicular articulations. Electronically Signed: Constantino martinez MD at 15:10 EDT Tel [phone], Service support [phone], CC: Aparna William DO Expanded Duty Dental Assistant: Signed 20-Aug-2014 Bilat Scrn Digital AND CAD Result: Comments: See Note; NOTES: [facility] Imaging Services [address] [place] [address] Breast Imaging Report MR#: [id number] Acct: [id number] Name: JACI BEE Rep #: [id number] : 1940 F 73 From: Constantino Bryan MD PCP: Aparna William DO Status: REG CLI Study: Bilat Scrn Digital AND CAD Date of Exam: 08/20/14 Exam# [id number] Ordering Dr: Aparna William DO MAMMOGRAPHY - BILATERAL SCREENING REASON FOR EXAM: Female, 73 years old. Routine annual screening examination. PERTINENT HISTORY: Non-contributory. TECHNIQUE: Digital examination. Mediolater al oblique (MLO) and craniocaudad (CC) views of both breasts were obtained. CAD: CAD was performed on this study. COMPARISON: Comparison is made with prior study dated July 21, 2013 and [facility] 2011. FINDINGS: Breast Composition: There are scattered [...] Constantino harden MD at 10:22 EST Tel [phone], Service support [phone], CC: Aparna William DO Expanded Duty Dental Assistant: Signed 20-Aug-2014 Dexa Bone Density Study (HP) Result: Comments: See Note; NOTES: [facility] Imaging Services [address] [place] [address] Bone Density Report MR#: [id number] Acct: [id number] Name: JACI BEE Rep #: [id number] : 1940 F 73 From: Constantino Bryan MD PCP: Aparna William DO Status: REG CLI Study: Dexa Bone Density Study () Date of Exam: 08/20/14 Exam# [id number] Ordering Dr: Aparna William DO STUDY: DUAL [...] Constantino Bryan MD at 11:26 EST Tel [phone], Service support [phone], CC: Aparna William DO Expanded Duty Dental Assistant: Signed 20-Jan-2014 Abdomen/Pelvis WITH Contrast Result: Comments: See Note; NOTES: [facility] Imaging Services [address] [place] [address] CAT Scan Report MR#: [id number] Acct: [id number] Name: JACI BEE Rep #: [id number] : 1940 F 73 From: Jose J Gordillo MD PCP: Aparna William DO Status: REG CLI Study: Abdomen/Pelvis WITH Contrast Date of Exam: 01/20/14 Exam# [id number] Ordering Dr: Aparna William DO STUD Y: [...] MD at 17:37 EDT , Service support [phone], CC: Aparna William DO Expanded Duty Dental Assistant: Signed 21-Jul-2013 Gege Hernandez Digital & CAD Result: Comments: See Note; NOTES: [facility] Imaging Services [address] [place] [address] Breast Imaging Report MR#: [id number] Acct: [id number] Name: JACI BEE Rep #: [id number] : 1940 F 72 From: Jose J Gotti MD PCP: Aparan William DO Status: REG CLI Exam# [id number] Ordering Dr: Aparna William DO MAMMOGRAPHY - [...] M.D. at 16:22 EST , Service support [phone], CC: Aparna William DO Expanded Duty Dental Assistant: Signed 11-Jun-2013 PT Discharge Summary Result: Comments: See Note; NOTES: [facility] Physical [facility] [address] [place], [place] [address] Fax REHABILITATION SERVICES DISCHARGE SUMMARY MR#: [id number] Acct: [id number] Name: JACI BEE Rep #: [id number] : 1940 72 From: Sheryl Armstrong Referring Dr.: Aparna William DO Status: REG RCR Eval Date: Disch rg Date: DATE OF SERVICE: 06/11/2013 This patient [...] C: Aparna William DO T: NTS JOB: [id number] <Electronically signed by Sherly Armstrong > 06/11/13 1344 CC: * Signed 28-May-2013 Inital Evaluation - PT Result: Comments: See Note; NOTES: [facility] Physical [facility] [address] [place], [place] [address] Fax REHABILITATION SERVICES INITIAL EVALUATION MR#: [id number] Acct: [id number] Name: JACI BEE Rep #: [id number] : 1940 72 From: Sheryl Armstrong Referring Dr.: Aparna William DO Status: REG RCR Insurance: [...] decreased independent exercise knowledge. Oswestry equals 10, D4998-JS, B9529-VP. GOALS: 1. Decrease complaint of low back [...] first. 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 Status: Active Smoking Status Name Dates Details Never smoker Vital Signs Date Test Result Details :48 Temperature 97.2 f Comments: Method: Temporal Pulse 70 /min Comments: Pattern: Regular Respiration Rate 16 /min Comments: Pattern: Unlabored BP Systolic 140 mm[Hg] Comments: Patient Position: Sitting; Cuff Location: Left Arm; Cuff Size: Standard BP Diastolic 78 mm[Hg] Comments: Patient Position: Sitting; Cuff Location: Left Arm; Cuff Size: Standard Weight 122 lb Height 64 in Body Mass Index Calculated 20.94 kg/m2 Body Surface Area Calculated 1.59 m2 :36 Temperature 97.2 f Comments: Method: Temporal Pulse [...] Surface Area Calculated 1.59 m2 :27 Temperature 98 f Comments: Method: Temporal Pulse [...] Calculated 1.7 m2 Head Circumference 0.00 cm 5-Iea-460594:59 Pulse 60 /min Comments: Pattern: Regular Respiration [...] 0.00 cm Results Date Description Value Details 45-Gwm-33421:18 Catachol+VMA, 24 HR UR Comments: [facility] (refer to report for specific site)refer to report for address and phone number VMA,24UR 2.4 {mg/24_hr} (Normal) Range: 0.0-7.5 Comments: This test was developed and its performance characteristicsdetermined by [facility]. It has not been cleared orapproved by the Food and Drug Administration. VMA,UR 1.2 mg/L (Normal) DOPAMINE,U24 80 {ug/24_hr} (Normal) Range: 0-510 Comments: Performed at: [address] [id number] Director: Prince García MD, Phone: [phone] TESTING PE RFORMED AT [facility]. ORIGINAL REPORT ON FILE IN LAB CONTAINS ADDITIONAL TEST SITE INFORMATION. DOPAMINE,UR 40 ug/L (Normal) NOREPINEPH,U24 28 {ug/24_hr} (Normal) Range: 0-135 NOREPINEPH,UR 14 ug/L (Normal) EPINEPHRINE,U24 4 {ug/24_hr} (Normal) Range: 0-20 EPINEPHRINE, UR 2 ug/L (Normal) :38 CBC with auto diff ([id number]) Comments: PATIENT WAS FASTINGPERFORMED BY: [facility] Dnvtgu6219 [facility] [id number] Immature Grans (Abs) 0.0 {x10E3/uL} (Normal) Range: 0.0-0.1 Immature Granulocytes 0 % (Normal) Baso (Absolute) 0.0 {x10E3/uL} (Normal) Range: 0.0-0.2 Eos (Absolute) 0.2 {x10E3/uL} (Normal) Range: 0.0-0.4 Monocytes(Absolute) 0.3 {x10E3/uL} (Normal) Range: 0.1-0.9 Lymphs (Absolute) 1.7 {x10E3/uL} (Normal) Range: 0.7-3.1 Neutrophils (Absolute) 2.2 {x10E3/uL} (Normal) Range: 1.4-7.0 Basos 1 % (Normal) Eos 4 % (Normal) Monocytes 8 % (Normal) Lymphs 38 % (Normal) Neutrophils 49 % (Normal) Platelets 184 {x10E3/uL} (Normal) Range: 150-379 RDW 13.0 % (Normal) Range: 12.3-15.4 MCHC 33.5 g/dL (Normal) Range: 31.5-35.7 MCH 29.1 pg (Normal) Range: 26.6-33.0 MCV 87 fL (Normal) Range: 79-97 Hematocrit 43.0 % (Normal) Range: 34.0-46.6 Hemoglobin 14.4 g/dL (Normal) Range: 11.1-15.9 RBC 4.95 {x10E6/uL} (Normal) Range: 3.77-5.28 WBC 4.5 {x10E3/uL} (Normal) Range: 3.4-10.8 :38 METABOLIC PANEL, COMPREHENSIVE Comments: PATIENT WAS FASTINGPERFORMED BY: [facility] Suhabg9494 [facility] [id number]; appt 06/14 (77215) ALT (SGPT) 21 [iU]/L (Normal) Range: 0-32 AST (SGOT) 26 [iU]/L (Normal) Range: 0-40 Alkaline Phosphatase 87 [iU]/L (Normal) Range: 39-117 Bilirubin, Total 0.5 mg/dL (Normal) Range: 0.0-1.2 A/G Ratio 2.0 (Normal) Range: 1.2-2.2 Globulin, Total 2.3 g/dL (Normal) Range: 1.5-4.5 Albumin 4.6 g/dL (Normal) Range: 3.5-4.8 Protein, Total 6.9 g/dL (Normal) Range: 6.0-8.5 Calcium 9.7 mg/dL (Normal) Range: 8.7-10.3 Carbon Dioxide, Total 26 mmol/L (Normal) Range: 20-29 Chloride 105 mmol/L (Normal) Range: 96-106 Potassium 4.9 mmol/L (Normal) Range: 3.5-5.2 Sodium 147 mmol/L (Abnormal) Range: 134-144 BUN/Creatinine Ratio 24 (Normal) Range: 12-28 eGFR If Africn Am 80 mL/min/1.73 (Normal) eGFR If NonAfricn Am 69 mL/min/1.73 (Normal) Creatinine 0.82 mg/dL (Normal) Range: 0.57-1.00 BUN 20 mg/dL (Normal) Range: 8-27 Glucose 84 mg/dL (Normal) Range: 65-99 :38 HGB A1C (15133) Comments: PATIENT WAS FASTINGPERFORMED BY: [employer] Corporationlin6370 [facility] [id number] Hemoglobin A1c 5.5 % (Normal) Range: 4.8-5.6 Comments: . Prediabetes: 5.7 - 6.4 Diabetes: >6.4 Glycemic control for adults with diabetes: <7.0 :38 LIPID PANEL (29004) Comments: PATIENT WAS FASTINGPERFORMED BY: [employer] Rpzvtb1770 [facility] [id number] LDL/HDL Ratio 3.2 {ratio} (Normal) Range: 0.0-3.2 Comments: LDL/HDL Ratio Men Women 1/2 Avg.Risk 1.0 1.5 Av g.Risk 3.6 3.2 2X Avg.Risk 6.2 5.0 3X Avg.Risk 8.0 6.1 LDL Cholesterol Calc 151 mg/dL (Abnormal) Range: 0-99 VLDL Cholesterol Celso 13 mg/dL (Normal) Range: 5-40 HDL Cholesterol 47 mg/dL (Normal) Triglycerides 63 mg/dL (Normal) Range: 0-149 Cholesterol, Total 211 mg/dL (Abnormal) Range: 100-199 :38 RNRXP-FYMOFKOTKQO-QDQQN (42618) Comments: PATIENT WAS FASTINGPERFORMED BY: [employer]lin6370 [facility] [id number] AFP, Serum, Tumor Marker 1.7 ng/mL (Normal) Range: 0.0-8.3 Comments: Jona ECLIA methodology 12-Pdl-916856:25 HGB A1C (65929) Comments: PATIENT WAS FASTINGPERFORMED BY: [employer]lin6370 [facility] [id number] Hemoglobin A1c 5.3 % (Normal) Range: 4.8-5.6 Comments: . Pre-diabetes: 5.7 - 6.4 Diabetes: >6.4 Glycemic control for adults with diabetes: <7.0 11-Vbk-676383:25 MICROALBUMIN: CREATININE RATIO Comments: PATIENT WAS FASTINGPERFORMED BY: [employer] Donhds3104 [facility] [id number] (31180) AND (22614) Alb/Creat Ratio <19.6 {mg/g_creat} (Normal) Range: 0.0-30.0 Albumin, Urine <3.0 ug/mL (Normal) Creatinine, Urine 15.3 mg/dL (Normal) 73-Sez-602582:25 LIPID PANEL (77074) Comments: PATIENT WAS FASTINGPERFORMED BY: [facility] ClarkeHackensack University Medical CenterWcwvgu6855 [facility] [id number] LDL/HDL Ratio 2.6 {ratio} (Normal) Range: 0.0-3.2 Comments: LDL/HDL Ratio Men Women 1/2 Avg.Risk 1.0 1.5 Av g.Risk 3.6 3.2 2X Avg.Risk 6.2 5.0 3X Avg.Risk 8.0 6.1 LDL Cholesterol Calc 138 mg/dL (Abnormal) Range: 0-99 VLDL Cholesterol Celso 15 mg/dL (Normal) Range: 5-40 HDL Cholesterol 53 mg/dL (Normal) Triglycerides 76 mg/dL (Normal) Range: 0-149 Cholesterol, Total 206 mg/dL (Abnormal) Range: 100-199 91-Sku-383084:25 CBC & PLATELETS (AUTO) Comments: PATIENT WAS FASTINGPERFORMED BY: [facility] ClarkeHackensack University Medical CenterZafgzp0318 [facility] [id number] (51471) Platelets 166 {x10E3/uL} (Normal) Range: 150-379 RDW 12.3 % (Normal) Range: 12.3-15.4 MCHC 34.1 g/dL (Normal) Range: 31.5-35.7 MCH 29.9 pg (Normal) Range: 26.6-33.0 MCV 88 fL (Normal) Range: 79-97 Hematocrit 45.4 % (Normal) Range: 34.0-46.6 Hemoglobin 15.5 g/dL (Normal) Range: 11.1-15.9 RBC 5.19 {x10E6/uL} (Normal) Range: 3.77-5.28 WBC 3.9 {x10E3/uL} (Normal) Range: 3.4-10.8 31-Vvl-553200:25 METABOLIC PANEL, COMPREHENSIVE Comments: PATIENT WAS FASTINGPERFORMED BY: [facility] ClarkeHackensack University Medical CenterXsoysa3509 [facility] [id number] (19333) ALT (SGPT) 21 [iU]/L (Normal) Range: 0-32 [...] 8-27 Glucose 82 mg/dL (Normal) Range: 65-99 89-Unh-156441:14 CBC W/AUTO DIFF WBC Comments: PATIENT NOT FASTINGPERFORMED BY: JOJO [facility] Zsaosl0203 [facility] [id number] Information: NURSE DRAW (81242) Immature Grans (Abs) 0.0 {x10E3/uL} (Normal) Range: [...] 3.77-5.28 WBC 6.1 {x10E3/uL} (Normal) Range: 3.4-10.8 72-Ghl-609445:14 METABOLIC PANEL, COMPREHENSIVE Comments: PATIENT NOT FASTINGPERFORMED BY: [facility] Naodjv8459 [facility] [id number]; review 12/03 (94783) ALT (SGPT) 25 [iU]/L (Normal) Range: 0-32 [...] 8-27 Glucose 81 mg/dL (Normal) Range: 65-99 45-Pcx-919243:42 TSH (11279) Comments: PATIENT NOT FASTINGPERFORMED BY: [facility] Vatnvr4531 [facility] [id number] TSH 3.330 {uIU/mL} (Normal) Range: 0.450-4.500 95-Toy-838261:42 SED RATE ERYTHROCYTE (36705) Comments: PATIENT NOT FASTINGPERFORMED BY: [facility]Select [facility] Hospital6370 [facility] [id number] Sedimentation Rate-Westergren 4 mm/h (Normal) Range: 0-40 53-Nsm-704415:42 C-REACTIVE PROTEIN (12292) Comments: PATIENT NOT FASTINGPERFORMED BY: [facility] Bzdobu5308 [facility] [id number] C-Reactive Protein, Quant <0.3 mg/L (Normal) Range: 0.0-4.9 70-Jsw-972629:42 HEPATITIS C ANTIBODY (83251) Comments: PATIENT NOT FASTINGPERFORMED BY: [facility] Hospital6370 [facility] [id number] Hep C Virus Ab <0.1 {s/co_ratio} (Normal) Range: 0.0-0.9 Comments: Negative: < 0.8 Indeterminate: 0.8 - 0.9 Positive: > 0.9 . The CDC recommends that a positive HCV antibody result be followed up with a HCV Nucleic Acid Amplification test (436286). 84-Rui-460155:42 MYLWW-YITLZHZBUUN-JZHHW (78122) Comments: PATIENT NOT FASTINGPERFORMED BY: [facility] Rlpxbr1509 [facility] [id number] AFP, Serum, Tumor Marker 1.9 ng/mL (Normal) Range: 0.0-8.3 Comments: Jona ECLIA methodology 92-Wtr-084263:47 LIPOPROTEIN, BLD, BY NMR Comments: PATIENT WAS FASTINGPERFORMED BY: BN [facility] Lxsuwznump8727 [facility] [id number] BY: CB [facility] Ovrgzb6998 [facility] [id number]; can review on 08/20 (52753) LP-IR Score 71 (Abnormal) Comments: INSULIN RESISTANCE MARKER <--Insulin Sensitive Insulin Resistant--> Percentile in Reference PopulationInsulin Resistance ScoreLP-IR Score Low 25th 50th 75th High <27 27 45 63 >63LP-IR Score is inaccurate if patient is non-fasting. .The LP-IR score is a laboratory developed i [facility] that has beenassociated with insulin resistance and [...] 1600 - 2000 Very High > 2000 26-Crj-833617:47 MICROALBUMIN: CREATININE Comments: PATIENT WAS FASTINGPERFORMED BY: [employer] [address] [id number] BY: [employer] Gsliil2054 [facility] [id number] RATIO (69193) AND (69519) Alb/Creat Ratio <12.7 {mg/g_creat} (Normal) Range: 0.0-30.0 Albumin, Urine <3.0 ug/mL (Normal) Creatinine, Urine 23.6 mg/dL (Normal) 96-Zld-818626:47 CBC with auto diff Comments: PATIENT WAS FASTINGPERFORMED BY: [employer] [address] [id number] BY: [employer]Work[employer]70 [facility] [id number] (16590) Immature Grans (Abs) 0.0 {x10E3/uL} (Normal) Range: [...] 3.77-5.28 WBC 3.6 {x10E3/uL} (Normal) Range: 3.4-10.8 08-Wfq-220565:47 METABOLIC PANEL, Comments: PATIENT WAS FASTINGPERFORMED BY: BN [facility] [address] [id number] BY: CB [facility] [address] [id number] COMPREHENSIVE (68121) ALT (SGPT) 24 [iU]/L (Normal) Range: 0-32 [...] Glucose, Serum 80 mg/dL (Normal) Range: 65-99 34-Mle-826352:47 HGB A1C (07848) Comments: PATIENT WAS FASTINGPERFORMED BY: LabCorengi[address] [id number] BY: McKinnon & ClarkeBrian V[place] 9141070 [facility] [id number] Hemoglobin A1c 5.4 % (Normal) Range: 4.8-5.6 Comments: . Pre-diabetes: 5.7 - 6.4 Diabetes: >6.4 Glycemic control for adults with diabetes: <7.0 01-May-20178:49 CBC with auto diff Comments: PATIENT WAS FASTINGPERFORMED BY: LabCorengi[address] [id number] Information: [id number] (90224) Immature Grans (Abs) 0.0 {x10E3/uL} (Normal) Range: [...] PANEL, COMPREHENSIVE Comments: PATIENT WAS FASTINGPERFORMED BY: LabCoHackensack University Medical CenterEmpjoi9309 [facility] [id number] (99946) ALT (SGPT) 29 [iU]/L (Normal) Range: 0-32 [...] mg/dL (Normal) Range: 65-99 :49 HGB A1C (15366) Comments: PATIENT WAS FASTINGPERFORMED BY: [facility] [id number] Hemoglobin A1c 5.5 % (Normal) Range: 4.8-5.6 Comments: . Pre-diabetes: 5.7 - 6.4 Diabetes: >6.4 Glycemic control for adults with diabetes: <7.0 :49 LIPID PANEL (95670) Comments: PATIENT WAS FASTINGPERFORMED BY: [facility] [id number]; review at 05/14 appt LDL/HDL Ratio 2.1 [...] mg/dL (Normal) Range: 100-199 :27 CBC (AUTO) (81763) Comments: PATIENT WAS FASTINGPERFORMED BY: StarriserHarold V[place] 058057 [facility] [id number] BY: McK[facility]on & ClarkeHackensack University Medical CenterYavssj0149 [facility] [id number] Platelets 184 {x10E3/uL} (Normal) Range: 150-379 RDW 12.7 % (Normal) Range: 12.3-15.4 MCHC 32.5 g/dL (Normal) Range: 31.5-35.7 MCH 29.5 pg (Normal) Range: 26.6-33.0 MCV 91 fL (Normal) Range: 79-97 Hematocrit 46.8 % (Abnormal) Range: 34.0-46.6 Hemoglobin 15.2 g/dL (Normal) Range: 11.1-15.9 RBC 5.15 {x10E6/uL} (Normal) Range: 3.77-5.28 WBC 4.5 {x10E3/uL} (Normal) Range: 3.4-10.8 :27 Vitamin D Hydroxy Comments: PATIENT WAS FASTINGPERFORMED BY: eeden[address] [place] [address] [id number] BY: [employer] [facility] [id number] (41635) Vitamin D, 25-Hydroxy 49.9 ng/mL (Normal) Range: 30.0-100.0 Comments: Vitamin D deficiency has been defined by the [place] ofMedicine and an Endocrine Society practice guideline as alevel of serum 25-OH vitamin D less than 20 ng/mL (1,2).The Endocrine Society went on to further define vitamin Dinsufficiency as a level between 21 and 29 ng/mL (2).1. IOM ([place]ner of Medicine). 2010. Dietary reference intakes for calcium and D. [place]: The National Academies Press.2. Mayur MF, Scar LAWRENCE, Claribel CAMP, et al. Evaluation, treatment, and prevention of vitamin D deficiency: an Endocrine Society clinical practice guideline. JCEM. 2010; 96(7):1911-30. :27 MICROALBUMIN: CREATININE Comments: PATIENT WAS FASTINGPERFORMED BY: [employer] [id number] BY: [employer]Work[employer]70 [facility] [id number] RATIO (83415) AND (81452) Microalb/Creat Ratio <13.2 {mg/g_creat} (Normal) Range: 0.0-30.0 Creatinine, Urine 22.8 mg/dL (Normal) Microalbumin, Urine <3.0 ug/mL (Normal) :27 HGB A1C (11210) Comments: PATIENT WAS FASTINGPERFORMED BY: [place] [id number] BY: [facility] ClarkeHackensack University Medical CenterPrcegh9908 [facility] [id number] Hemoglobin A1c 5.5 % (Normal) Range: 4.8-5.6 Comments: . Pre-diabetes: 5.7 - 6.4 Diabetes: >6.4 Glycemic control for adults with diabetes: <7.0 :27 METABOLIC PANEL, Comments: PATIENT WAS FASTINGPERFORMED BY: [employer] [address] [id number] BY: McKinnon & ClarkeHackensack University Medical CenterKtepvp5038 [facility] [id number] COMPREHENSIVE (39512) ALT (SGPT) 27 [iU]/L (Normal) Range: 0-32 [...] Comments: PATIENT WAS FASTINGPERFORMED BY: BN [facility] Bnjofuqzth7744 [facility] [id number] BY: CB [facility] Bvbkee1436 [facility] [id number]; non-emergent till apt (68772) LP-IR Score 62 (Abnormal) Comments: INSULIN RESISTANCE MARKER <--Insulin Sensitive Insulin Resistant--> Percentile in Reference PopulationInsulin Resistance ScoreLP-IR Score Low 25th 50th 75th High <27 27 45 63 >63LP-IR Score is inaccurate if patient is non-fasting. .The LP-IR score is a laboratory developed i [facility] that has beenassociated with insulin resistance and [...] were developed and their performance characteristicsdetermined by [employer]. These assays have not been cleared by [...] 1600 - 2000 Very High > 2000 23-Awi-55959:27 [id number] (89721) Comments: PATIENT WAS FASTINGPERFORMED BY: eeden1447 [facility] [id number] BY: Histogen6370 [facility] Hospitalblin [place] [id number] AFP, Serum, Tumor Marker 2.6 ng/mL (Normal) Range: 0.0-8.3 Comments: [employer] ECLIA methodology 31-Oza-46130:48 Vitamin D Hydroxy Comments: PATIENT WAS FASTINGPERFORMED BY: Accelereachton1447 [facility] [id number] BY: [employer] Lipkrk3976 Lou RoadDublin [place] [id number] (74870) Vitamin D, 25-Hydroxy 40.8 ng/mL (Normal) Range: 30.0-100.0 Comments: Vitamin D deficiency has been defined by the [place] ofMedicine and an Endocrine Society practice guideline as alevel of serum 25-OH vitamin D less than 20 ng/mL (1,2).The Endocrine Society went on to further define vitamin Dinsufficiency as a level between 21 and 29 ng/mL (2).1. IOM ([place]ner of Medicine). 2010. Dietary reference intakes for calcium and D. [place]: The National Academies Press.2. Mayur MF, Scar LAWRENCE, Claribel CAMP, et al. Evaluation, treatment, and prevention of vitamin D deficiency: an Endocrine Society clinical practice guideline. JCEM. 2010; 96(7):1911-30. :48 HGB A1C (53076) Comments: PATIENT WAS FASTINGPERFORMED BY: eeden1447 [facility] [id number] BY: [employer]ogen6370 [facility] [id number] Hemoglobin A1c 5.5 % (Normal) Range: 4.8-5.6 Comments: . Pre-diabetes: 5.7 - 6.4 Diabetes: >6.4 Glycemic control for adults with diabetes: <7.0 :48 CBC W/AUTO DIFF WBC Comments: PATIENT WAS FASTINGPERFORMED BY: eeden1447 [facility] [id number] BY: [employer]6370 [facility] [id number] (29411) Immature Grans (Abs) 0.0 {x10E3/uL} (Normal) Range: [...] 3.77-5.28 WBC 3.8 {x10E3/uL} (Normal) Range: 3.4-10.8 :48 METABOLIC PANEL, Comments: PATIENT WAS FASTINGPERFORMED BY: BN [facility] [address] [id number] BY: CB [facility] Loxzta1907 [facility] [id number] COMPREHENSIVE (47172) ALT (SGPT) 21 [iU]/L (Normal) Range: 0-32 [...] Glucose, Serum 92 mg/dL (Normal) Range: 65-99 99-Iwc-87985:48 LIPOPROTEIN, BLD, BY NMR Comments: PATIENT WAS FASTINGPERFORMED BY: BN [facility] Fbtntdhmfw4639 [facility] [id number] BY: CB [facility] Vuofys4017 [facility] [id number] (37141) LP-IR Score 67 (Abnormal) Comments: INSULIN RESISTANCE MARKER <--Insulin Sensitive Insulin Resistant--> Percentile in Reference PopulationInsulin Resistance ScoreLP-IR Score Low 25th 50th 75th High <27 27 45 63 >63LP-IR Score is inaccurate if patient is non-fasting. .The LP-IR score is a laboratory developed i [facility] that has beenassociated with insulin resistance and [...] were developed and their performance characteristicsdetermined by [employer]. These assays have not been cleared by [...] High > 2000 :48 Vitamin D Hydroxy (78812) Comments: PATIENT WAS FASTINGPERFORMED BY: BN [facility] [address] [id number] BY: CB [facility] Zuatft8863 [facility] [id number] Vitamin D, 25-Hydroxy 43.7 ng/mL (Normal) Range: 30.0-100.0 Comments: Vitamin D deficiency has been defined by the [place] ofMedicine and an Endocrine Society practice guideline as alevel of serum 25-OH vitamin D less than 20 ng/mL (1,2).The Endocrine Society went on to further define vitamin Dinsufficiency as a level between 21 and 29 ng/mL (2).1. IOM ([place] of Medicine). 2010. Dietary reference intakes for calcium and D. [place]: The National Academies Press.2. Mayur MF, Scar LAWRENCE, Claribel CAMP, et al. Evaluation, treatment, and prevention of vitamin D deficiency: an Endocrine Society clinical practice guideline. JCEM. 2010; 96(7):1911-30. :48 [id number] (97349) Comments: PATIENT WAS FASTINGPERFORMED BY: [employer] Clarke[address] [id number] BY: [facility]6370 [facility] [id number] AFP, Serum, Tumor Marker 2.0 ng/mL (Normal) Range: 0.0-8.3 Comments: Jona ECLIA methodology :48 CBC with auto diff Comments: PATIENT WAS FASTINGPERFORMED BY: McKinnon & ClarkeVictoria V[place] 877177 [facility] [id number] BY: StarriserSelect Specialty Hospital6370 [facility] [id number] (95940) Immature Grans (Abs) 0.0 {x10E3/uL} (Normal) Range: [...] Comments: PATIENT WAS FASTINGPERFORMED BY: BN [facility] Kybkmjzgeg5263 [facility] [id number] BY: CB [facility] Lxublb5522 [facility] [id number] COMPREHENSIVE (50669) ALT (SGPT) 27 [iU]/L (Normal) Range: 0-32 [...] Comments: PATIENT WAS FASTINGPERFORMED BY: BN [facility] Gqrztvizto1926 [facility] [id number] BY: CB [facility] Zylygu2071 [facility] [id number]; non-emergent till apt next week (13116) LP-IR Score 71 (Abnormal) Comments: INSULIN RESISTANCE MARKER <--Insulin Sensitive Insulin Resistant--> Percentile in Reference PopulationInsulin Resistance ScoreLP-IR Score Low 25th 50th 75th High <27 27 45 63 >63LP-IR Score is inaccurate if patient is non-fasting. .The LP-IR score is a laboratory developed i [facility] that has beenassociated with insulin resistance and [...] 1600 - 2000 Very High > 2000 06-Jul-20169:48 HGB A1C (25811) Comments: PATIENT WAS FASTINGPERFORMED BY: Accelereach[address] [id number] BY: [employer]Work[employer]com70 [facility] [id number] Hemoglobin A1c 5.7 % (Abnormal) Range: 4.8-5.6 Comments: . Pre-diabetes: 5.7 - 6.4 Diabetes: >6.4 Glycemic control for adults with diabetes: <7.0 :48 MICROALBUMIN: CREATININE Comments: PATIENT WAS FASTINGPERFORMED BY: Accelereach[address] [id number] BY: [employer]Work[employer]com70 [facility] [id number] RATIO (45912) AND (39933) Microalb/Creat Ratio 7.8 {mg/g_creat} (Normal) Range: 0.0-30.0 Microalbumin, Urine 5.3 ug/mL (Normal) Creatinine, Urine 68.0 mg/dL (Normal) 48-Nux-146855:11 CALCULUS CHEMICAL QUANTI Comments: PATIENT NOT FASTINGPERFORMED BY: Accelereach[address] [id number] Information: [id number] (47456) Please note: SPRCS (Normal) Comments: Calculi report without photograph will follow via computer, mail,or blanket maker delivery.Physician questions regarding Calculi Analysis contact [facility] at:[phone]. Nidus No Nidus visualized (Normal) Calcium phosphate 05 % (Normal) Ca oxalate monohydr. 95 % (Normal) Composition SPRCS (Normal) Comments: Percentage (Represents the % composition) Weight 14.0 mg (Normal) Size 3x3x2 mm (Normal) Color Brown (Normal) :20 Basic Metabolic Profile (BMP) Comments: [facility] Fkgcfccjox[address] [place], [place], [id number] GAP 9 (Normal) Range: 5-15 CO2 25.0 [...] A.D.A. criteria. :20 CBC W/Diff, Automated Comments: [facility] [address] [place], [place], [id number] Absolute Lymph 0.66 {X10_3/ul} (Abnormal) Range: 0.83-4.51 [...] Has pt arrived? YHow was Urine Obtained? [facility] V[address]wguewd[address] [place], [place], [id number] MUCUS, URINE 0 SEEN {/hpf} (Normal) BACTERIA [...] COLOR Yellow (Normal) :39 Vitamin D Hydroxy (63956) Comments: PATIENT WAS FASTINGPERFORMED BY: LabSelect Specialty Hospital6370 [facility] [id number] Vitamin D, 25-Hydroxy 36.0 ng/mL (Normal) Range: 30.0-100.0 Comments: Vitamin D deficiency has been defined by the [place]ner ofWilson Healthcine and an Endocrine Society practice guideline as alevel of serum 25-OH vitamin D less than 20 ng/mL (1,2).The Endocrine Society went on to further define vitamin Dinsufficiency as a level between 21 and 29 ng/mL (2).1. IOM ([place]empner of Medicine). 2010. Dietary reference intakes for calcium and D. [place]: The National Academies Press.2. Mayur MF, Scar LAWRENCE, Claribel CAMP, et al. Evaluation, treatment, and prevention of vitamin D deficiency: an Endocrine Society clinical practice guideline. JCEM. 2010; 96(7):1911-30. :39 CBC W/AUTO DIFF WBC Comments: PATIENT WAS FASTINGPERFORMED BY: LabUniversity [facility] Children'S HospitalAnzxcg7718 [facility] [id number] Information: [id number] (64752) Immature Grans (Abs) 0.0 {x10E3/uL} (Normal) Range: [...] 3.77-5.28 WBC 4.1 {x10E3/uL} (Normal) Range: 3.4-10.8 06-Dec-20158:39 METABOLIC PANEL, COMPREHENSIVE Comments: PATIENT WAS FASTINGPERFORMED BY: LabCoHackensack University Medical CenterAmwahc9568 [facility] [id number] (39858) ALT (SGPT) 24 [iU]/L (Normal) Range: 0-32 [...] Glucose, Serum 88 mg/dL (Normal) Range: 65-99 06-Dec-20158:39 LIPID PANEL (18251) Comments: PATIENT WAS FASTINGPERFORMED BY: DoctorAtWork.com70 [facility] CenterLocalyte.comAtrium Health SouthPark [id number]; non-emergent till apt LDL/HDL Ratio 4.3 {ratio_units} [...] PANEL, COMPREHENSIVE Comments: PATIENT WAS FASTINGPERFORMED BY: Histogen6370 [facility] [id number] (11639) ALT (SGPT) 28 [iU]/L (Normal) Range: 0-32 [...] (Normal) Range: 65-99 :58 Vitamin D Hydroxy (07129) Comments: PATIENT WAS FASTINGPERFORMED BY: DoctorAtWork[employer]com70 [place] [id number] Vitamin D, 25-Hydroxy 35.4 ng/mL (Normal) Range: 30.0-100.0 Comments: Vitamin D deficiency has been defined by the [place]ner ofMedicine and an Endocrine Society practice guideline as alevel of serum 25-OH vitamin D less than 20 ng/mL (1,2).The Endocrine Society went on to further define vitamin Dinsufficiency as a level between 21 and 29 ng/mL (2).1. IOM ([place]ner of Medicine). 2010. Dietary reference intakes for calcium and D. [place]: The National Academies Press.2. Mayur MF, Scar NC, Claribel CAMP, et al. Evaluation, treatment, and prevention of vitamin D deficiency: an Endocrine Society clinical practice guideline. JCEM. 2010; 96(7):1911-30. :58 CBC W/AUTO DIFF WBC Comments: PATIENT WAS FASTINGPERFORMED BY: [employer]ogen6370 [facility] [id number] Information: [id number] (37763) Immature Grans (Abs) 0.0 {x10E3/uL} (Normal) Range: [...] WBC 4.4 {x10E3/uL} (Normal) Range: 3.4-10.8 :58 [id number] (24994) Comments: PATIENT WAS FASTINGPERFORMED BY: QualQuant SignalsUNC Hospitals Hills[facility] Campus [id number] AFP, Serum, Tumor Marker 1.8 ng/mL (Normal) Range: 0.0-8.3 Comments: Jona ECLIA methodology :58 LIPID PANEL (11724) Comments: PATIENT WAS FASTINGPERFORMED BY: makemyreturns.comAtrium Health SouthPark [id number]; non-emergent till apt LDL/HDL Ratio 5.2 {ratio_units} [...] degree relatives should be collected. J Clin Khxyhvg2175;5:133-140 LDL Cholesterol Calc 197 mg/dL (Abnormal) Range: 0-99 VLDL Cholesterol Celso 31 mg/dL (Normal) Range: 5-40 HDL Cholesterol 38 mg/dL (Abnormal) Comments: According to ATP-III Guidelines, HDL-C >59 mg/dL is considered anegative risk factor for CHD. Triglycerides 156 mg/dL (Abnormal) Range: 0-149 Cholesterol, Total 266 mg/dL (Abnormal) Range: 100-199 :46 Protein Electro, Random Urine Comments: PERFORMED BY: QualQuant SignalsUNC Hospitals Hillsborough Campus [id number] Please note: SPRCS (Normal) Comments: Protein electrophoresis scan will follow via computer, mail, orcourier delivery. M-Darius, % Not Observed % (Normal) Gamma Globulin, U 12.5 % (Normal) Beta Globulin, U 31.8 % (Normal) Tzwth-9-Tzoghisx, U 16.7 % (Normal) Lmotp-3-Llpnlext, U 8.1 % (Normal) Albumin, U 30.9 % (Normal) Protein,Total,Urine <4.0 mg/dL (Normal) Range: 0.0-15.0 Comments: Verified by repeat analysis :46 Protein Electro.,S Comments: PERFORMED BY: DoctorAtWork.com70 [facility] [id number] Please note: SPRCS (Normal) Comments: Protein electrophoresis scan will follow via computer, mail, orcourier delivery. A/G Ratio 1.4 (Normal) Range: 0.7-2.0 Globulin, Total 3.1 g/dL (Normal) Range: 2.0-4.5 M-Darius Not Observed g/dL (Normal) Gamma Globulin 0.9 g/dL (Normal) Range: 0.5-1.6 Beta Globulin 1.1 g/dL (Normal) Range: 0.6-1.3 Zpxyr-9-Soogzvvw 0.9 g/dL (Normal) Range: 0.4-1.2 Qtbkt-3-Bxajdwlu 0.2 g/dL (Normal) Range: 0.1-0.4 Albumin 4.2 g/dL (Normal) Range: 3.2-5.6 :46 CBC W/AUTO DIFF WBC (02126) Comments: PERFORMED BY: LabCoHackensack University Medical CenterIgkcio6731 [facility] [id number] Immature Grans (Abs) 0.0 {x10E3/uL} (Normal) Range: [...] :46 METABOLIC PANEL, COMPREHENSIVE Comments: PERFORMED BY: [employer] [place] [id number] (95430) ALT (SGPT) 31 [iU]/L (Normal) Range: 0-32 [...] 80 mg/dL (Normal) Range: 65-99 :46 PARATHORMONE (77067) Comments: PERFORMED BY: DoctorAtWork[employer]com70 [place] [id number] PTH, Intact 16 pg/mL (Normal) Range: 15-65 :46 Vitamin D Hydroxy (96172) Comments: PERFORMED BY: [employer] Rgjdta4134 [facility] [id number] Vitamin D, 25-Hydroxy 47.0 ng/mL (Normal) Range: 30.0-100.0 Comments: Vitamin D deficiency has been defined by the [place]ner ofMedicine and an Endocrine Society practice guideline as alevel of serum 25-OH vitamin D less than 20 ng/mL (1,2).The Endocrine Society went on to further define vitamin Dinsufficiency as a level between 21 and 29 ng/mL (2).1. IOM ([place]ner of Medicine). 2010. Dietary reference intakes for calcium and D. [place]: The National Academies Press.2. Mayur MF, Scar LAWRENCE, Claribel CAMP, et al. Evaluation, treatment, and prevention of vitamin D deficiency: an Endocrine Society clinical practice guideline. JCEM. 2010; 96(7):1911-30. :46 TSH (29207) Comments: PERFORMED BY: [employer]ylin6370 [facility] [id number] TSH 4.390 {uIU/mL} (Normal) Range: 0.450-4.500 :46 LIPID PANEL (49836) Comments: PERFORMED BY: LabCorengi Dmljtv9994 [facility] [id number]; non-emergent till apt LDL/HDL Ratio 4.0 {ratio_units} [...] PANEL, COMPREHENSIVE Comments: PATIENT WAS FASTINGPERFORMED BY: JOJO [employer] Kshrev1719 [facility] [id number] (97717) ALT (SGPT) 23 [iU]/L (Normal) Range: 0-32 [...] Glucose, Serum 89 mg/dL (Normal) Range: 65-99 :08 CBC W/AUTO DIFF WBC Comments: PATIENT WAS FASTINGPERFORMED BY: JOJO McKinnon & ClarkeMescalero Service UnitEagyem4548 [facility] [id number] Information: [id number] (30370) Immature Grans (Abs) 0.0 {x10E3/uL} (Normal) Range: [...] 3.77-5.28 WBC 3.8 {x10E3/uL} (Normal) Range: 3.4-10.8 30-Nov-20149:08 LIPID PANEL (08895) Comments: PATIENT WAS FASTINGPERFORMED BY: LabCoHackensack University Medical CenterKbocns7698 [facility] [id number]; non-emergent till apt LDL/HDL Ratio 4.7 {ratio_units} [...] Glutamyl Transferase) Comments: PATIENT WAS FASTINGPERFORMED BY: [facility]6370 [facility] [id number] (74567) GGT 11 [iU]/L (Normal) Range: 0-60 :08 [id number] (29539) Comments: PATIENT WAS FASTINGPERFORMED BY: [facility] [place] [address] [id number] AFP, Serum, Tumor Marker 1.6 ng/mL (Normal) Range: 0.0-8.3 Comments: Jona ECLIA methodology :08 PTT (Activated Partial Comments: PATIENT WAS FASTINGPERFORMED BY: [facility]6370 [facility] [id number] Thromboplastin Time) (84392) aPTT 27 {sec} (Normal) Range: 24-33 Comments: This test has not been validated for monitoring unfractionated heparintherapy. aPTT-based therapeutic ranges for unfractionated heparintherapy have not been established. For general guidelines onHeparin monitoring, refer to the [facility] Directory of Services. :08 PT (Prothrobim Time) (19682) Comments: PATIENT WAS FASTINGPERFORMED BY: [facility]6370 [facility] [id number] Prothrombin Time 10.8 {sec} (Normal) Range: 9.1-12.0 INR 1.0 (Normal) Range: 0.8-1.2 Comments: Reference interval is for non-anticoagulated patients. . Suggested INR therapeutic range for Vitamin K anta gonist therapy: Standard Dose (moderate intensity therapeutic range): 2.0 - 3.0 Higher intensity therapeutic range 2.5 - 3.5 :08 Vitamin D Hydroxy (38049) Comments: PATIENT WAS FASTINGPERFORMED BY: [place] 5512670 [facility] [id number] Vitamin D, 25-Hydroxy 43.7 ng/mL (Normal) Range: 30.0-100.0 Comments: Vitamin D deficiency has been defined by the Kempner ofMedicine and an Endocrine Society practice guideline as alevel of serum 25-OH vitamin D less than 20 ng/mL (1,2).The Endocrine Society went on to further define vitamin Dinsufficiency as a level between 21 and 29 ng/mL (2).1. IOM ([place]ner of Medicine). 2010. Dietary reference intakes for calcium and D. [place]: The National AcademSichuan Huiji [employer] Press.2. Mayur MF, Scar NC, Claribel CAMP, et al. Evaluation, treatment, and prevention of vitamin D deficiency: an Endocrine Society clinical practice guideline. JCEM. 2010; 96(7):1911-30. 4-Eqm-773753:17 CBC (AUTO) (21339) Comments: PATIENT WAS FASTINGPERFORMED BY: [facility] Szctub8781 [facility] [id number] Platelets 159 {x10E3/uL} (Normal) Range: 150-379 RDW 13.2 % (Normal) Range: 12.3-15.4 MCHC 32.9 g/dL (Normal) Range: 31.5-35.7 MCH 29.5 pg (Normal) Range: 26.6-33.0 MCV 90 fL (Normal) Range: 79-97 Hematocrit 45.6 % (Normal) Range: 34.0-46.6 Hemoglobin 15.0 g/dL (Normal) Range: 11.1-15.9 RBC 5.09 {x10E6/uL} (Normal) Range: 3.77-5.28 WBC 4.2 {x10E3/uL} (Normal) Range: 3.4-10.8 4-Hjp-516752:17 Vitamin D Hydroxy (62000) Comments: PATIENT WAS FASTINGPERFORMED BY: [facility] Pospaz0565 [facility] [id number] Vitamin D, 25-Hydroxy 52.9 ng/mL (Normal) Range: 30.0-100.0 Comments: Vitamin D deficiency has been defined by the Kempner ofoBazcine and an Endocrine Society practice guideline as alevel of serum 25-OH vitamin D less than 20 ng/mL (1,2).The Endocrine Society went on to further define vitamin Dinsufficiency as a level between 21 and 29 ng/mL (2).1. IOM ([place] of Medicine). 2010. Dietary reference intakes for calcium and D. [place]: The National Academies Press.2. Mayur MF, Scar LAWRENCE, Claribel CAMP, et al. Evaluation, treatment, and prevention of vitamin D deficiency: an Endocrine Society clinical practice guideline. JCEM. 2010; 96(7):1911-30. 6-Wwj-654469:17 METABOLIC PANEL, Comments: PATIENT WAS FASTINGPERFORMED BY: [facility] Prkugx7535 [facility] [id number] Information: [id number] COMPREHENSIVE (12724) ALT (SGPT) 25 [iU]/L (Normal) Range: 0-32 [...] Glucose, Serum 82 mg/dL (Normal) Range: 65-99 4-Bvr-762964:17 LIPID PANEL (22549) Comments: PATIENT WAS FASTINGPERFORMED BY: [employer] [facility] [id number] LDL/HDL Ratio 3.8 {ratio_units} Range: 0.0-3.2 (Abnormal) [...] Negative (Normal) Comments: PATIENT NOT FASTINGPERFORMED BY: [employer] [facility] [id number] 418:58 EIA 60-Bru-715826:58 Ova + Parasite Exam Comments: PATIENT NOT FASTINGPERFORMED BY: [employer] MED[facility] [id number] Result 1 NOCP (Normal) Comments: No ova, cysts, or parasites seen. Ova + Parasite Exam Final report (Normal) Comments: These results were obtained using wet preparation(s) and trichromestained smear. This test does not include testing for Cryptosporidiumparvum, Cyclospora, or Microsporidia. :58 Stool Culture Comments: PATIENT NOT FASTINGPERFORMED BY: [place]iserJames [place] 4663270 [facility] [id number] Information: SRC:ST STOOL E coli Shiga Toxin EIA Negative (Normal) Result 1 NCI (Normal) Comments: No Campylobacter species isolated. Campylobacter Culture Final report (Normal) Result 1 NSS (Normal) Comments: No Salmonella or Shigella recovered. Salmonella/Shigella Screen Final report (Normal) :58 White Blood Cells (WBC), Comments: PATIENT NOT FASTINGPERFORMED BY: [facility]6370 [facility] [id number] Stool Result 1 NWBC (Normal) Comments: No white blood cells seen. White Blood Cells (WBC), Final report (Normal) Comments: Reference Range: None Seen Stool :09 CRE CREAT 0.6 mg/dL (Normal) Range: 0.6-1.0 :36 CBC WITH MANUAL DIFF Comments: PATIENT WAS FASTINGPERFORMED BY: [place] 4663270 [facility] [id number] Information: [id number] (27527) Immature Grans (Abs) 0.0 {x10E3/uL} (Normal) Range: [...] PANEL, COMPREHENSIVE Comments: PATIENT WAS FASTINGPERFORMED BY: [facility]CoHackensack University Medical CenterZzhayz2222 [facility] [id number] (50134) ALT (SGPT) 25 [iU]/L (Normal) Range: 0-32 [...] mg/dL (Normal) Range: 65-99 :36 LIPID PANEL (44341) Comments: PATIENT WAS FASTINGPERFORMED BY: [facility]6370 [facility] [id number] LDL/HDL Ratio 3.4 {ratio_units} (Abnormal) Range: 0.0-3.2 LDL Cholesterol Calc 129 mg/dL (Abnormal) Range: 0-99 HDL Cholesterol 38 mg/dL (Abnormal) Comments: According to ATP-III Guidelines, HDL-C >59 mg/dL is considered anegative risk factor for CHD. VLDL Cholesterol Celso 22 mg/dL (Normal) Range: 5-40 Cholesterol, Total 189 mg/dL (Normal) Range: 100-199 Triglycerides 109 mg/dL (Normal) Range: 0-149 :36 Vitamin D Hydroxy (89637) Comments: PATIENT WAS FASTINGPERFORMED BY: [facility]6370 [facility] [id number] Vitamin D, 25-Hydroxy 55.9 ng/mL (Normal) Range: 30.0-100.0 Comments: Vitamin D deficiency has been defined by the [place] ofMedicine and an Endocrine Society practice guideline as alevel of serum 25-OH vitamin D less than 20 ng/mL (1,2).The Endocrine Society went on to further define vitamin Dinsufficiency as a level between 21 and 29 ng/mL (2).1. IOM ([place] of Medicine). 2010. Dietary reference intakes for calcium and D. [place]: The National Academies Press.2. Mayur MF, Scar LAWRENCE, Claribel CAMP, et al. Evaluation, treatment, and prevention of vitamin D deficiency: an Endocrine Society clinical practice guideline. JCEM. 2010; 96(7):1911-30. :36 UMNHZ-JLTOJSVBEBZ-ZSIGD (81530) Comments: PATIENT WAS FASTINGPERFORMED BY: [facility]6370 [facility] [id number] AFP, Serum, Tumor Marker 1.5 ng/mL (Normal) Range: 0.0-8.3 Comments: Jona ECLIA methodology :36 PTT (Activated Partial Comments: PATIENT WAS FASTINGPERFORMED BY: [place] 5512670 [facility] [id number] Thromboplastin Time) (25589) aPTT 27 {sec} (Normal) Range: 24-33 Comments: This test has not been validated for monitoring unfractionated heparintherapy. aPTT-based therapeutic ranges for unfractionated heparintherapy have not been established. For general guidelines onHeparin monitoring, refer to the [facility] Directory of Services. :36 PT (Prothrobim Time) (47110) Comments: PATIENT WAS FASTINGPERFORMED BY: [facility]6370 [facility] [id number] Prothrombin Time 10.7 {sec} (Normal) Range: 9.1-12.0 INR 1.0 (Normal) Range: 0.8-1.2 Comments: Reference interval is for non-anticoagulated patients. . Suggested INR therapeutic range for Vitamin K anta gonist therapy: Standard Dose (moderate intensity therapeutic range): 2.0 - 3.0 Higher intensity therapeutic range 2.5 - 3.5 :50 CBC WITH MANUAL DIFF Comments: PATIENT NOT FASTINGPERFORMED BY: [facility]6370 [facility] [id number] Information: [id number] (72585) Immature Grans (Abs) 0.0 {x10E3/uL} (Normal) Range: [...] {x10E3/uL} (Normal) Range: 3.4-10.8 :50 LIPID PANEL (96123) Comments: PATIENT NOT FASTINGPERFORMED BY: [email or web address]Park [id number] LDL/HDL Ratio 4.0 {ratio_units} (Abnormal) Range: 0.0-3.2 [...] PANEL, COMPREHENSIVE Comments: PATIENT NOT FASTINGPERFORMED BY: [employer] [facility] [id number] (21863) ALT (SGPT) 58 [iU]/L (Abnormal) Range: 0-32 [...] Glucose, Serum 87 mg/dL (Normal) Range: 65-99 19-Wrh-56454:50 Vitamin D Hydroxy (26346) Comments: PATIENT NOT FASTINGPERFORMED BY: LabCoHackensack University Medical CenterGaxiaa3837 [facility] [id number] Vitamin D, 25-Hydroxy 46.4 ng/mL (Normal) Range: 30.0-100.0 Comments: Vitamin D deficiency has been defined by the [place] ofMedicine and an Endocrine Society practice guideline as alevel of serum 25-OH vitamin D less than 20 ng/mL (1,2).The Endocrine Society went on to further define vitamin Dinsufficiency as a level between 21 and 29 ng/mL (2).1. IOM ([place] of Medicine). 2010. Dietary reference intakes for calcium and D. [place]: The National Academies Press.2. Mayur MF, Scar [place], Claribel CAMP, et al. Evaluation, treatment, and prevention of vitamin D deficiency: an Endocrine Society clinical practice guideline. JCEM. 2010; 96(7):1321-30. :33 METABOLIC PANEL, COMPREHENSIVE Comments: PATIENT WAS FASTINGPERFORMED BY: [facility] [place] [id number] (82446) ALT (SGPT) 50 [iU]/L (Abnormal) Range: 0-32 [...] Glucose, Serum 90 mg/dL (Normal) Range: 65-99 :33 Vitamin D Hydroxy (24977) Comments: PATIENT WAS FASTINGPERFORMED BY: [email or web address] [place] [id number] Vitamin D, 25-Hydroxy 47.0 ng/mL (Normal) Range: 30.0-100.0 Comments: Vitamin D deficiency has been defined by the [place] of[employer] and an Endocrine Society practice guideline as alevel of serum 25-OH vitamin D less than 20 ng/mL (1,2).The Endocrine Society went on to further define vitamin Dinsufficiency as a level between 21 and 29 ng/mL (2).1. IOM ([place] of Medicine). 2010. Dietary reference intakes for calcium and D. [place]: The National AcademSichuan [employer] Press.2. Mayur MF, Scar NC, Claribel CAMP, et al. Evaluation, treatment, and prevention of vitamin D deficiency: an Endocrine Society clinical practice guideline. JCEM. 2010; 96(7):1911-30. 76-Zcj-754115:33 CBC WITH MANUAL DIFF Comments: PATIENT WAS FASTINGPERFORMED BY: [facility] Wqynpx9508 [facility] [id number] Information: [id number] (89019) Immature Grans (Abs) 0.0 {x10E3/uL} (Normal) Range: [...] WBC 3.9 {x10E3/uL} (Normal) Range: 3.4-10.8 :33 HSISW-VTGAMIUNITF-QSIOB (11930) Comments: PATIENT WAS FASTINGPERFORMED BY: [address] [id number] AFP, Serum, Tumor Marker 2.1 ng/mL (Normal) Range: 0.0-8.3 Comments: Jona ECLIA methodology :33 PTT (Activated Partial Comments: PATIENT WAS FASTINGPERFORMED BY: [facility] [place] [address] [id number] Thromboplastin Time) (09488) aPTT 26 {sec} (Normal) Range: 24-33 Comments: This test has not been validated for monitoring unfractionated heparintherapy. aPTT-based therapeutic ranges for unfractionated heparintherapy have not been established. For general guidelines onHeparin monitoring, refer to the [facility] Directory of Services. :33 PT (Prothrobim Time) (24941) Comments: PATIENT WAS FASTINGPERFORMED BY: [facility]6370 [facility] [id number] INR 1.1 (Normal) Range: 0.8-1.2 Comments: Reference interval is for non-anticoagulated patients. . Suggested INR therapeutic range for Vitamin K anta gonist therapy: Standard Dose (moderate intensity therapeutic range): 2.0 - 3.0 Higher intensity therapeutic range 2.5 - 3.5 Prothrombin Time 11.0 {sec} (Normal) Range: 9.1-12.0 :33 LIPID PANEL (11588) Comments: PATIENT WAS FASTINGPERFORMED BY: [facility] Eikyrq2930 [facility] [id number] LDL/HDL Ratio 4.3 {ratio_units} (Abnormal) Range: 0.0-3.2 LDL Cholesterol Calc 170 mg/dL (Abnormal) Range: 0-99 VLDL Cholesterol Celso 26 mg/dL (Normal) Range: 5-40 HDL Cholesterol 40 mg/dL (Normal) Comments: According to ATP-III Guidelines, HDL-C >59 mg/dL is considered anegative risk factor for CHD. Triglycerides 129 mg/dL (Normal) Range: 0-149 Cholesterol, Total 236 mg/dL (Abnormal) Range: 100-199 47-Csw-48645:00 SPINE LUMBAR (ROUTINE) Radiology Report See Note [...] Hamilton M.D.April 23, 2013 at 4:48:16 PM [id number] Signed PV/PV If you are the referring physician and would like to consult with theradiologis t who provided this interpretation, please contact Leann Flynn M.D. at [phone]. If this radiologist is unavailable, youwillbe directed to another radiologist to assist. If you are a patient w ith a question regarding this report, pleasecontactyour referring physician directly. Professional Interpretation Provided By: [employer], Phone , These documents contain legally protected [...] return or destructiono fthese documents. Dictated on 04/23/13 1648 by Leann Cole MDTranscribed on 04/23/131649 by ITS IMPORTSign by Leann Cole MD on 04/23/131650 Sign by: Douglas BARNETTLeann 87-Rhi-092226:43 C-REACTIVE PROTEIN (42898) Comments: PATIENT NOT FASTINGPERFORMED BY: [facility] Qwmimg2663 [facility] [id number] C-Reactive Protein, Quant 0.7 mg/L (Normal) Range: 0.0-4.9 26-Rad-738871:43 SED RATE ERYTHROCYTE Comments: PATIENT NOT FASTINGPERFORMED BY: [facility] Center Vpxmnp9505 [facility] [id number] Information: [id number] (88363) Sedimentation Rate-Westergren 2 mm/h (Normal) Range: 0-40 :50 METABOLIC PANEL, COMPREHENSIVE Comments: PATIENT WAS FASTINGPERFORMED BY: Lab[facility]i Eaewwb9075 [facility] [id number] (95397) ALT (SGPT) 66 [iU]/L (Abnormal) Range: 0-32 [...] (Normal) Range: 65-99 :50 Vitamin D Hydroxy (59194) Comments: PATIENT WAS FASTINGPERFORMED BY: [facility]6370 [facility] [id number] Vitamin D, 25-Hydroxy 44.8 ng/mL (Normal) Range: 30.0-100.0 Comments: Vitamin D deficiency has been defined by the [place] ofMedicine and an Endocrine Society practice guideline as alevel of serum 25-OH vitamin D less than 20 ng/mL (1,2).The Endocrine Society went on to further define vitamin Dinsufficiency as a level between 21 and 29 ng/mL (2).1. IOM ([employer] of Medicine). 2010. Dietary reference intakes for calcium and D. [place]: The National Academies Press.2. Mayur MF, Scar [place], Claribel CAMP, et al. Evaluation, treatment, and prevention of vitamin D deficiency: an Endocrine Society clinical practice guideline. JCEM. 2010; 96(7):1911-30. :50 LIPID PANEL (66412) Comments: PATIENT WAS FASTINGPERFORMED BY: [employer] Obvimt8912 [facility] [id number] LDL/HDL Ratio 4.6 {ratio_units} (Abnormal) Range: 0.0-3.2 HDL Cholesterol 36 mg/dL (Abnormal) Comments: According to ATP-III Guidelines, HDL-C >59 mg/dL is considered anegative risk factor for CHD. LDL Cholesterol Calc 166 mg/dL (Abnormal) Range: 0-99 Triglycerides 148 mg/dL (Normal) Range: 0-149 VLDL Cholesterol Celso 30 mg/dL (Normal) Range: 5-40 Cholesterol, Total 232 mg/dL (Abnormal) Range: 100-199 5-Sep-27221:50 CBC WITH MANUAL DIFF Comments: PATIENT WAS FASTINGPERFORMED BY: [facility]6370 [facility] [id number] Information: [id number] (83116) Immature Grans (Abs) 0.0 {x10E3/uL} (Normal) Range: [...] of these values in the reference population. 27-Kyc-40677:00 KNEE 4 OR MORE VIEWS Radiology Report [...] Clinton D.O.January 13, 2013 at 10:54:29 AM [id number] Signed DS/DS If you a re the referring physician and would like to consult with theradiologist who provided this interpretation, please contact Alli Clinton D.O. at [phone]. If this radiologist is unavailable, you will [...] destructionofthese documents. Dictated on 01/13/13 1054 by Nila Garcia DOscribed on 01/13/13 1059 by ITS IMPORTSign by Diego Garcia DO on 01/13/13 1100 Sign by: Diego Garcia DO 02-Jan-20139:30 METABOLIC PANEL, Comments: PATIENT WAS FASTINGPERFORMED BY: [facility]6370 [facility] [id number] Information: [id number] COMPREHENSIVE (05503) ALT (SGPT) 50 [iU]/L (Abnormal) Range: 0-32 [...] 18 - 28 8 - 30 days 17 - 27 31 d - 5 months [...] mg/dL (Normal) Range: 65-99 :30 LIPID PANEL (39112) Comments: PATIENT WAS FASTINGPERFORMED BY: [facility]alsUNC [facility] [id number] LDL/HDL Ratio 3.7 {ratio_units} (Abnormal) Range: 0.0-3.2 LDL Cholesterol Calc 131 mg/dL (Abnormal) Range: 0-99 VLDL Cholesterol Celso 42 mg/dL (Abnormal) Range: 5-40 Cholesterol, Total 208 mg/dL (Abnormal) Range: 100-199 HDL Cholesterol 35 mg/dL (Abnormal) Comments: According to ATP-III Guidelines, HDL-C >59 mg/dL is considered anegative risk factor for CHD. Triglycerides 208 mg/dL (Abnormal) Range: 0-149 57-Dhc-200397:32 Protein Electro, Random Urine Comments: PATIENT NOT FASTINGPERFORMED BY: [facility] [id number] Please note: SPRCS (Normal) Comments: Protein electrophoresis scan will follow via computer, mail, orcourier delivery. Beta Globulin, U 30.6 % (Normal) Gamma Globulin, U 31.1 % (Normal) M-Darius, % Not Observed % (Normal) Qkijn-7-Tupvxgsw, U 18.2 % (Normal) Xrauy-8-Oiufrsyz, U 2.5 % (Normal) Albumin, U 17.6 % (Normal) Protein,Total,Urine 3.1 mg/dL (Normal) Range: 0.0-15.0 22-Ghk-425007:32 Protein Electro.,S Comments: PATIENT NOT FASTINGPERFORMED BY: [employer] Isvfgi0456 [facility] [id number] Information: SRC: URINE A/G Ratio 1.7 (Normal) Range: 0.7-2.0 Please note: SPRCS (Normal) Comments: Protein electrophoresis scan will follow via computer, mail, orcourier delivery. Globulin, Total 2.6 g/dL (Normal) Range: 2.0-4.5 M-Darius Not Observed g/dL (Normal) Beta Globulin 1.0 g/dL (Normal) Range: 0.6-1.3 Gamma Globulin 0.7 g/dL (Normal) Range: 0.5-1.6 Mnsmg-4-Rcjmjyad 0.1 g/dL (Normal) Range: 0.1-0.4 Ljoqq-9-Ncumurcd 0.7 g/dL (Normal) Range: 0.4-1.2 Albumin 4.5 g/dL (Normal) Range: 3.2-5.6 Protein, Total, Serum 7.1 g/dL (Normal) Range: 6.0-8.5 :32 YLIKA-EBWBUHYBWTS-FVNYI (27907) Comments: PATIENT NOT FASTINGPERFORMED BY: [facility]6370 [address] MediaUNC [facility] [id number] AFP, Serum, Tumor Marker 1.5 ng/mL (Normal) Range: 0.0-8.3 Comments: Jona ECLIA methodology 66-Oen-522174:32 LIPID PANEL (52498) Comments: PATIENT NOT FASTINGPERFORMED BY: [facility]6370 PathCentralAt[facility] [id number] LDL Cholesterol Calc 132 mg/dL (Abnormal) Range: 0-99 LDL/HDL Ratio 3.5 {ratio_units} (Abnormal) Range: 0.0-3.2 HDL Cholesterol 38 mg/dL (Abnormal) Comments: According to ATP-III Guidelines, HDL-C >59 mg/dL is considered anegative risk factor for CHD. Triglycerides 160 mg/dL (Abnormal) Range: 0-149 VLDL Cholesterol Celso 32 mg/dL (Normal) Range: 5-40 Cholesterol, Total 202 mg/dL (Abnormal) Range: 100-199 46-Ary-685712:32 PARATHORMONE (33562) Comments: PATIENT NOT FASTINGPERFORMED BY: [facility]6370 80[address] MediaUNC [facility] [id number] PTH, Intact 16 pg/mL (Normal) Range: 15-65 94-Sud-720501:32 PHOSPHORUS (20197) Comments: PATIENT NOT FASTINGPERFORMED BY: [place] 5512670 [facility] [id number] Phosphorus, Serum 3.7 mg/dL (Normal) Range: 2.5-4.5 82-Rig-091980:32 PTT (Activated Partial Comments: PATIENT NOT FASTINGPERFORMED BY: [address] [id number] Thromboplastin Time) (25625) aPTT 25 {sec} (Normal) Range: 24-33 Comments: This test has not been validated for monitoring unfractionated heparintherapy. aPTT-based therapeutic ranges for unfractionated heparintherapy have not been established. For general guidelines onHeparin monitoring, refer to the [facility] Directory of Services. 99-Wrx-333759:32 PT (Prothrobim Time) (57318) Comments: PATIENT NOT FASTINGPERFORMED BY: [facility]6370 [facility] [id number] INR 1.0 (Normal) Range: 0.8-1.2 Comments: Reference interval is for non-anticoagulated patients. . Suggested INR therapeutic range for Vitamin K anta gonist therapy: Standard Dose (moderate intensity therapeutic range): 2.0 - 3.0 Higher intensity therapeutic range 2.5 - 3.5 Prothrombin Time 10.9 {sec} (Normal) Range: 9.1-12.0 99-Ghe-435890:01 Calcium, 24Hr Urine Comments: PERFORMED BY: [address] [id number] Information: 08/26/@830AM 08/27@830AM Calcium, Urine 24hr 208.0 {mg/24_hr} (Normal) Range: 100.0-300.0 Calcium, Urine 8.0 mg/dL (Normal) 47-Naz-163092:35 BILAT SCRN DIGITAL & CAD Radiology Report [...] not delay biopsy of a clinically suspiciousabnormality. Signed:Constatnino Bryan M.D.July 18, 2012 at 1:56:05 PM [id number] Signed GP/GP If you are the referring physician and would like to consult with theradiologist who provided this interpretation, please contact Nusrat Cain at [phone]. If this radiologist is unavailable, youwill be directed to another radiologist to assist. If you are a patient with a question regarding this report, pleasecontactyour referring physician directly. Professional Interpretation Provided By: [employer]erks, Phone , Thes e documents contain legally [...] destructionofthese documents. Dictated on 07/18/12 1235 by Darion Bryan MDscribed on 07/18/12 1402 by ITS IMPORTSign by Constantino Bryan MD on 07/18/12 1403 Sign by: Clare BARNETT,Constantino 34-Aos-178292:35 DEXA BONE DENSITY STUDY (HP) Radiology Report [...] Bryan M.D.July 18, 2012 at 1:48:07 PM [id number] Signed GP/GP If you are the referring physician a nd would like to consult with theradiologist who provided this interpretation, please contact Nusrat Cain at [phone]. If this radiologist is unavailable, youwill be directed to another radiologist to assist. If you are a patient with a question regarding this report, pleasecontactyour referring physician directly. Professional Interpretation Provided By: VIPerks, Phone , These documents contain legally protected [...] destructionofthese documents. Dictated on 07/18/12 1301 by Franco Bryan MDranscribed on 07/18/12 1352 by ITS IMPORTSign by Constantino Bryan MD on 07/18/12 1 353 Sign by: Constantino Bryan MD 52-Wfa-59287:38 TSH (05147) Comments: PATIENT WAS FASTINGPERFORMED BY: JOJO StarriserCo Wazczl6145 [facility] [id number] TSH 2.950 {uIU/mL} (Normal) Range: 0.450-4.500 59-Vaw-12238:38 CBC WITH MANUAL DIFF Comments: PATIENT WAS FASTINGPERFORMED BY: [facility] Ccbchq4600 [facility] [id number] Information: [id number] (93509) Immature Grans (Abs) 0.0 {x10E3/uL} (Normal) Range: [...] 3.77-5.28 WBC 4.2 {x10E3/uL} (Normal) Range: 4.0-10.5 15-Hrl-63726:38 METABOLIC PANEL, COMPREHENSIVE Comments: PATIENT WAS FASTINGPERFORMED BY: [facility] Bemxhp5205 [facility] [id number] (64234) ALT (SGPT) 69 [iU]/L (Abnormal) Range: 0-40 [...] mg/dL (Normal) Range: 65-99 :38 LIPID PANEL (41399) Comments: PATIENT WAS FASTINGPERFORMED BY: [facility] Tetsrt1821 [facility] [id number] LDL/HDL Ratio 4.6 {ratio_units} (Abnormal) Range: 0.0-3.2 LDL Cholesterol Calc 175 mg/dL (Abnormal) Range: 0-99 HDL Cholesterol 38 mg/dL (Abnormal) Comments: According to ATP-III Guidelines, HDL-C >59 mg/dL is considered anegative risk factor for CHD. VLDL Cholesterol Celso 23 mg/dL (Normal) Range: 5-40 Triglycerides 114 mg/dL (Normal) Range: 0-149 Cholesterol, Total 236 mg/dL (Abnormal) Range: 100-199 :38 Vitamin D Hydroxy (57460) Comments: PATIENT WAS FASTINGPERFORMED BY: [facility]Select [facility]6370 [facility]ine WatermanUNC [facility] [id number] Vitamin D, 25-Hydroxy 36.3 ng/mL (Normal) Range: 30.0-100.0 Comments: Vitamin D deficiency has been defined by the [place] ofMedicine and an Endocrine Society practice guideline as alevel of serum 25-OH vitamin D less than 20 ng/mL (1,2).The Endocrine Society went on to further define vitamin Dinsufficiency as a level between 21 and 29 ng/mL (2).1. IOM ([place] of Medicine). 2010. Dietary reference intakes for calcium and D. [place]: The National Academies Press.2. Mayur MF, Scar NC, Claribel CAMP, et al. Evaluation, treatment, and prevention of vitamin D deficiency: an Endocrine Society clinical practice guideline. JCEM. 2010; 96(7):1911-30. -Jun-20118:45 BILAT SCRN DIGITAL & CAD Radiology Report [...] suspicio usabnormality. Dictated on 07/06/11 0904 by Clare BARNETT,DonnyrieleTranscribed on 07/06/11 1031 by ITS IMPORTSign by Constantino Bryan MD on 12/08/11 1032 Sign by: Constantino Bryan MD :57 CBC WITH MANUAL DIFF Comments: PATIENT WAS FASTINGPERFORMED BY: LabCoHackensack University Medical CenterHyqfrc4597 [facility] [id number] Information: [id number] (10678) Immature Grans (Abs) 0.0 {x10E3/uL} (Normal) Range: [...] 3.80-5.10 WBC 4.4 {x10E3/uL} (Normal) Range: 4.0-10.5 :57 METABOLIC PANEL, COMPREHENSIVE Comments: PATIENT WAS FASTINGPERFORMED BY: [facility]6370 [address] MediaUNC [facility] [id number] (70747) ALT (SGPT) 55 [iU]/L (Abnormal) Range: 0-40 [...] (Normal) Range: 65-99 04-Sep-20118:57 Vitamin D Hydroxy (42033) Comments: PATIENT WAS FASTINGPERFORMED BY: [facility]6370 80[address] MediaUNC [facility] [id number] Vitamin D, 25-Hydroxy 49.4 ng/mL (Normal) Range: 30.0-100.0 Comments: Vitamin D deficiency has been defined by the [place] ofMedicine and an Endocrine Society practice guideline as alevel of serum 25-OH vitamin D less than 20 ng/mL (1,2).The Endocrine Society went on to further define vitamin Dinsufficiency as a level between 21 and 29 ng/mL (2).1. IOM ([place] of Medicine). 2011. Dietary reference intakes for calcium and D. [place]: The National Academies Press.2. Mayur MF, Scar LAWRENCE, Claribel CMAP, et al. Evaluation, treatment, and prevention of vitamin D deficiency: an Endocrine Society clinical practice guideline. JCEM. 2010; 96(7):1911-30. :57 LIPID PANEL (13641) Comments: PATIENT WAS FASTINGPERFORMED BY: [employer]70 [facility]CentralAt[facility] [id number] LDL/HDL Ratio 3.0 {ratio_units} (Normal) Range: 0.0-3.2 [...] FUNCTION PANEL Comments: PATIENT WAS FASTINGPERFORMED BY: [employer] [id number] Information: [id number] (87559) ALT (SGPT) 57 [iU]/L (Abnormal) Range: 0-40 Alkaline Phosphatase, S 73 [iU]/L (Normal) Range: 25-165 AST (SGOT) 37 [iU]/L (Normal) Range: 0-40 Bilirubin, Direct 0.12 mg/dL (Normal) Range: 0.00-0.40 Albumin, Serum 4.7 g/dL (Normal) Range: 3.5-4.8 Bilirubin, Total 0.6 mg/dL (Normal) Range: 0.0-1.2 Protein, Total, Serum 7.2 g/dL (Normal) Range: 6.0-8.5 :38 LIPID PANEL (57539) Comments: PATIENT WAS FASTINGPERFORMED BY: Histogen6370 [facility] [id number] LDL/HDL Ratio 3.4 {ratio_units} (Abnormal) Range: 0.0-3.2 LDL Cholesterol Calc 139 mg/dL (Abnormal) Range: 0-99 VLDL Cholesterol Celso 20 mg/dL (Normal) Range: 5-40 HDL Cholesterol 41 mg/dL (Normal) Comments: According to ATP-III Guidelines, HDL-C >59 mg/dL is considered anegative risk factor for CHD. Triglycerides 99 mg/dL (Normal) Range: 0-149 Cholesterol, Total 200 mg/dL (Abnormal) Range: 100-199 :33 Vitamin D Hydroxy (25797) Comments: PATIENT NOT FASTINGPERFORMED BY: Histogen6370 [facility] [id number] Vitamin D, 25-Hydroxy 42.6 ng/mL (Normal) Range: 32.0-100.0 Comments: Effective June 19, 2011 Vitamin D, 25-Hydroxy reference intervals will be changing to 30-100. .Recent studies consider the lower li vince of 32.0 ng/mL to be athreshold for optimal health.Kamari ALLEN. J Nutr. 2004;135(2):317-22. :33 CBC WITH MANUAL DIFF Comments: PATIENT NOT FASTINGPERFORMED BY: [employer] Wglcjf1778 [facility] [id number] Information: [id number] , NO DRAW FEE (47665) Immature Grans (Abs) 0.0 {x10E3/uL} (Normal) Range: [...] 3.80-5.10 WBC 4.6 {x10E3/uL} (Normal) Range: 4.0-10.5 1-Cou-743839:10 Metabolic Panel, Basic (04319) Comments: PATIENT NOT FASTINGPERFORMED BY: LabCoHackensack University Medical CenterBcxmjo5467 [facility] [id number] Calcium, Serum 9.6 mg/dL (Normal) Range: 8.6-10.2 [...] Glucose, Serum 86 mg/dL (Normal) Range: 65-99 8-Jnb-317274:10 CBC with manual diff Comments: PATIENT NOT FASTINGPERFORMED BY: LabCoMescalero Service UnitXpyicg2100 [facility] [id number] Information: [id number] (22822) Baso (Absolute) 0.0 {x10E3/uL} (Normal) Range: 0.0-0.2 [...] {x10E3/uL} (Abnormal) Range: 4.0-10.5 :07 LIPID PANEL (90656) Comments: PATIENT WAS FASTINGPERFORMED BY: [employer] Bdekhz9423 [facility] [id number] LDL/HDL Ratio 6.9 {ratio_units} (Abnormal) Range: 0.0-3.2 LDL Cholesterol Calc 254 mg/dL (Abnormal) Range: 0-99 VLDL Cholesterol Celso 29 mg/dL (Normal) Range: 5-40 HDL Cholesterol 37 mg/dL (Abnormal) Comments: According to ATP-III Guidelines, HDL-C >59 mg/dL is considered anegative risk factor for CHD. Cholesterol, Total 320 mg/dL (Abnormal) Range: 100-199 Triglycerides 144 mg/dL (Normal) Range: 0-149 :07 Vitamin D Hydroxy (67674) Comments: PATIENT WAS FASTINGPERFORMED BY: Gogo6370 [facility] [id number] Vitamin D, 25-Hydroxy 27.8 ng/mL (Abnormal) Range: 32.0-100.0 Comments: Recent studies consider the lower limit of 32.0 ng/mL to be athreshold for optimal health.Kamari ALLEN. J Nutr. 2004;135(2):317-22. :07 METABOLIC PANEL, COMPREHENSIVE Comments: PATIENT WAS FASTINGPERFORMED BY: [employer] Wsihjt6823 [facility] [id number] (72920) ALT (SGPT) 61 [iU]/L (Abnormal) Range: 0-40 [...] Glucose, Serum 77 mg/dL (Normal) Range: 65-99 24-Ohz-27042:07 CBC WITH MANUAL DIFF Comments: PATIENT WAS FASTINGPERFORMED BY: LabCoHackensack University Medical CenterBhutzn1619 [facility] [id number] Information: [id number] (88982) Immature Grans (Abs) 0.0 {x10E3/uL} (Normal) Range: [...] (Normal) Range: 4.0-10.5 :57 Vitamin D Hydroxy (81172) Comments: PATIENT WAS FASTINGPERFORMED BY: Histogen6370 [facility] [id number] Vitamin D, 25-Hydroxy 62.8 ng/mL (Normal) Range: 32.0-100.0 Comments: Recent studies consider the lower limit of 32.0 ng/mL to be athreshold for optimal health.Kamari ALLEN. J Nutr. 2004;135(2):317-22. :57 LIPID PANEL (57953) Comments: PATIENT WAS FASTINGPERFORMED BY: [employer] Sdryqv7835 PathCentralin [place] [id number] HDL Cholesterol 39 mg/dL (Abnormal) Comments: According [...] COMPREHENSIVE Comments: PATIENT WAS FASTINGPERFORMED BY: LabCo Rvbscc1177 [facility] [id number] (12765) Alkaline Phosphatase, S 74 [iU]/L (Normal) Range: [...] Glucose, Serum 86 mg/dL (Normal) Range: 65-99 :57 CBC WITH MANUAL DIFF Comments: PATIENT WAS FASTINGPERFORMED BY: JOJO [facility]6370 [facility] [id number] Information: [id number] (79562) Immature Grans (Abs) 0.0 {x10E3/uL} (Normal) Range: [...] 3.80-5.10 WBC 4.0 {x10E3/uL} (Normal) Range: 4.0-10.5 :39 BILAT SCRN DIGITAL & CAD Radiology Report See Note (Normal) Comments: Exam Number: [id number] AMMOGRAPHY - BILATERAL SCREENING INDICATION:Routine annual screening [...] of attaching a ResultCode to this exam.ADDENDUM: [id number] HPBI/MDS Reported By: LEANN CHAUDHARI M.D. :49 Vitamin D Hydroxy (74119) Comments: PATIENT NOT FASTINGPERFORMED BY: Histogen6370 [facility] [id number] Vitamin D, 25-Hydroxy 48.8 ng/mL (Normal) Range: 32.0-100.0 Comments: Recent studies consider the lower limit of 32.0 ng/mL to be athreshold for optimal health.Kamari ALLEN. J Nutr. 2004;135(2):317-22. :49 LIPID PANEL (87417) Comments: PATIENT NOT FASTINGPERFORMED BY: Histogen6370 [facility] [id number] LDL Cholesterol Calc 136 mg/dL (Abnormal) Range: [...] PANEL, COMPREHENSIVE Comments: PATIENT NOT FASTINGPERFORMED BY: Histogen6370 [facility] [id number] (00251) Alkaline Phosphatase, S 75 [iU]/L (Normal) Range: [...] Glucose, Serum 88 mg/dL (Normal) Range: 65-99 :49 CBC WITH MANUAL DIFF Comments: PATIENT NOT FASTINGPERFORMED BY: JOJO [facility] Hsvrzt0416 [facility] [id number] Information: [id number] (72332) Immature Grans (Abs) 0.0 {x10E3/uL} (Normal) Range: [...] 3.80-5.10 WBC 3.7 {x10E3/uL} (Abnormal) Range: 4.0-10.5 :17 DEXA BONE DENSITY STUDY (HP) Radiology Report See Note (Normal) Comments: Exam Number: [id number] CLINICAL:This is a 69-year-old female patient with history osteopenia. EXAMINATION:DUAL ENERGY X-RAY ABSORPTIOMETRY / DEXA. TECHNIQUE:Bone Density Measurements (BMD) of lumbar spi ne and bilateral hipswere obtained using a ScoreGrid scanner.. COMPARISON:Comparison is made with prior study [...] Osteoporosis Foundation http://www.nof.org Reported By: CONSTANTINO BRYAN 75-Tjn-97446:23 CBC WITH MANUAL DIFF Comments: PATIENT WAS FASTINGPERFORMED BY: [facility]Select [facility]ty Hospital6370 [facility] [id number] Information: [id number] (58456) Immature Grans (Abs) 0.0 {x10E3/uL} (Normal) Range: [...] (Abnormal) Range: 4.0-10.5 :23 Vitamin D Hydroxy (99821) Comments: PATIENT WAS FASTINGPERFORMED BY: [employer] Nhthqx5274 [facility] [id number] Vitamin D, 25-Hydroxy 28.0 ng/mL (Abnormal) Range: 32.0-100.0 Comments: Recent studies consider the lower limit of 32.0 ng/mL to be athreshold for optimal health.Kamari ALLEN. J Nutr. 2004;135(2):317-22. :23 METABOLIC PANEL, COMPREHENSIVE Comments: PATIENT WAS FASTINGPERFORMED BY: Kiadis PharmaMescalero Service UnitVvwtbc8951 [facility] [id number] (06121) Alkaline Phosphatase, S 80 [iU]/L (Normal) Range: [...] Glucose, Serum 92 mg/dL (Normal) Range: 65-99 33-Pkz-25624:23 LIPID PANEL (07647) Comments: PATIENT WAS FASTINGPERFORMED BY: LabCoHackensack University Medical CenterTyypbv7184 [facility] [id number] HDL Cholesterol 39 mg/dL (Abnormal) Comments: According [...] COMPREHENSIVE Comments: PATIENT WAS FASTINGPERFORMED BY: [facility]Co Jcjwei4346 [facility] [id number] (66261) Alkaline Phosphatase, S 83 [iU]/L (Normal) Range: [...] Glucose, Serum 87 mg/dL (Normal) Range: 65-99 :34 CBC WITH MANUAL DIFF Comments: PATIENT WAS FASTINGPERFORMED BY: LabCoHackensack University Medical CenterQacgpd4320 [facility] [id number] Information: [id number] (78489) Baso (Absolute) 0.0 {x10E3/uL} (Normal) Range: 0.0-0.2 [...] FUNCTION PANEL Comments: PATIENT WAS FASTINGPERFORMED BY: LabCoHackensack University Medical CenterQhompe9041 [facility] [id number] (87851) Bilirubin, Direct 0.11 mg/dL (Normal) Range: 0.00-0.40 :34 LIPID PANEL (52462) Comments: PATIENT WAS FASTINGPERFORMED BY: [facility] & ClarkeHackensack University Medical CenterUlbvvk9148 [facility] [id number] HDL Cholesterol 39 mg/dL (Abnormal) Comments: According to ATP-III Guidelines, HDL-C >59 mg/dL is considered anegative risk factor for CHD. LDL Cholesterol Calc 139 mg/dL (Abnormal) Range: 0-99 LDL/HDL Ratio 3.6 {ratio_units} (Abnormal) Range: 0.0-3.2 Triglycerides 101 mg/dL (Normal) Range: 0-149 VLDL Cholesterol Celso 20 mg/dL (Normal) Range: 5-40 Cholesterol, Total 198 mg/dL (Normal) Range: 100-199 6-Dzy-494017:13 CBC With Differential/Platelet Comments: PATIENT WAS FASTINGPERFORMED BY: [facility] & ClarkeHackensack University Medical CenterSjzssr0301 [facility] [id number] Baso (Absolute) 0.0 {x10E3/uL} (Normal) Range: 0.0-0.2 [...] 11.7-15.0 WBC 3.3 {x10E3/uL} (Abnormal) Range: 4.0-10.5 9-Fsz-855840:13 Comp. Metabolic Panel (14) Comments: PATIENT WAS FASTINGPERFORMED BY: LabCoHackensack University Medical CenterZplbtg3180 [facility] [id number] A/G Ratio 2.0 (Normal) Range: 1.1-2.5 Albumin, [...] Sodium, Serum 146 mmol/L (Abnormal) Range: 135-145 :13 Lipid Panel With LDL/HDL Comments: PATIENT WAS FASTINGPERFORMED BY: [facility] Ehetnv4732 [facility] [id number] Ratio Cholesterol, Total 210 mg/dL (Abnormal) Range: [...] ng/mL (Normal) Comments: PATIENT WAS FASTINGPERFORMED BY: [facility] Nddyjq8654 [facility] [id number] :13 Range: 32.0-100.0 Comments: Recent studies consider the lower limit of 32.0 ng/mL to be athreshold for optimal health.Kamari ALLEN. J Nutr. 2004;135(2):317-22. :42 [facility] Radiology Report See Note (Normal) Comments: Exam Number: [id number] MAMMOGRAM, BILATERAL SCREENING DIGITAL AND CAD HISTORYRoutine [...] The mammograms werealso examined with computer-aided detection softw are ([employer]ancy [employer], [employer] Reported By: LEANN CHAUDHARI M.D. 03-Poe-337849:25 SPLEEN (HP) Radiology Report See Note (Normal) Comments: Exam Number: [id number] CLINICAL:Elevated liver enzymes and polycythemia. LIMITED ABDOMINAL [...] quadrant ultrasound. Reported By: ELSIE MCNEAL M.D. 18-Sfz-772847:24 LIVER (HP) Radiology Report See Note (Normal) Comments: Exam Number: [id number] CLINICAL:Elevated liver enzymes and polycythemia. LIMITED ABDOMINAL [...] of splenomegaly. Reported By: ELSIE MCNEAL M.D. 12-Mpg-86767:56 CBC With Differential/Platelet Comments: PERFORMED BY: [facility] KEN2029 [facility] [id number] Baso (Absolute) 0.0 {x10E3/uL} (Normal) Range: 0.0-0.2 [...] 11.7-15.0 WBC 3.0 {x10E3/uL} (Abnormal) Range: 4.0-10.5 12-Sxn-65011:56 Comp. Metabolic Panel (14) Comments: PERFORMED BY: MUÑOZ [facility] MAK6199 [facility] [id number] A/G Ratio 2.0 (Normal) Range: 1.1-2.5 Albumin, [...] :56 Erythropoietin (EPO), Serum Comments: PERFORMED BY: [employer] VEA8371TeraDiode [facility] [id number] Erythropoietin 13.2 m[iU]/mL (Normal) Range: 4.2-27.8 :56 Hepatic Function Panel (7) Comments: PERFORMED BY: [employer] MWR9866Escom [facility] [id number] Bilirubin, Direct 0.15 mg/dL (Normal) Range: 0.00-0.40 60-Ymh-11129:56 JAK2 V617F Mutation Detection Comments: PERFORMED BY: [employer] HKR2663Escom [facility] [id number] JAK2 V617F mutation JAK2N (Normal) Comments: Result: NEGATIVE for the JAK2 V617F mutation. .Interpretation: The G to T nucleotide change encoding the U736Jdmfhlzuh wa s not detect detection ed. This [...] all patientswith these disorders. .Tammie Hess, PhD, [facility] Director, Molecular Genetics [facility] [place], [place] .JAK2 is a cytoplasmic tyrosine kinase with a jackson role in signaltra nsduction from multiple hematopoietic growth factor receptors. Apoint mutation within exon 14 of the JAK2 gene (D9074V) encoding avaline to phenylalanine substitution at position 617 of the KNQ0nuojete (V617F) has been identified in most patients [...] for Disease Classification and Diagnosis. [facility] Blph3498;80(7):947-958. . LDH 221 [iU]/L Comments: PERFORMED BY: [facility] SXR4542 [facility] [id number] :56 (Normal) Range: 100-250 :56 Lipid Panel With LDL/HDL Comments: PERFORMED BY: MiaSolé OFO9210 [facility] [id number] Ratio Cholesterol, Total 203 mg/dL (Abnormal) Range: [...] D, 25-Hydroxy 22.3 ng/mL Comments: PERFORMED BY: MUÑOZ [facility] GRU7932 [facility] [id number] :56 (Abnormal) Range: 32.0-100.0 Comments: Recent studies consider the lower limit of 32.0 ng/mL to be athreshold for optimal health.Kamari ALLEN. J Nutr. 2004;135(2):317-22. 1-Tdn-064519:06 CBCD,SMEAR DIFF CELLS COUNTED 100 (Normal) EOS [...] 47-70 WBC 3.7 K/mm3 (Abnormal) Range: 4.4-11.0 8-Pkw-831363:06 LDH 205 U/L (Abnormal) Range: 100-190 3-Vbc-490407:06 LIVER ALB 4.2 g/dL (Normal) Range: 3.4-5.0 [...] 7.35-7.45 sO2 96.0 % (Normal) Range: 95-99 27-Kiy-10038:48 CBC WITH MANUAL DIFF (45815) Comments: PATIENT WAS FASTINGClinical Information: ADD DRAW FEE [id number] PERFORMED BY: [facility] Apxlgf1756 [facility] [id number] Baso (Absolute) 0.0 {x10E3/uL} (Normal) Range: 0.0-0.2 [...] FUNCTION PANEL Comments: PATIENT WAS FASTINGPERFORMED BY: [employer]re[employer] Corporationlin6370 [facility] [id number] (26749) Albumin, Serum 4.7 g/dL (Normal) Range: 3.6-4.8 Alkaline Phosphatase, S 85 [iU]/L (Normal) Range: 25-165 ALT (SGPT) 45 [iU]/L (Abnormal) Range: 0-40 AST (SGOT) 32 [iU]/L (Normal) Range: 0-40 Bilirubin, Direct 0.13 mg/dL (Normal) Range: 0.00-0.40 Bilirubin, Total 0.5 mg/dL (Normal) Range: 0.1-1.2 Protein, Total, Serum 7.1 g/dL (Normal) Range: 6.0-8.5 :48 LIPID PANEL (92315) Comments: PATIENT WAS FASTINGPERFORMED BY: [employer] LabCoHackensack University Medical CenterLfeldu1021 [facility] [id number] Cholesterol, Total 194 mg/dL (Normal) Range: 100-199 [...] Random Urine Comments: PATIENT WAS FASTINGPERFORMED BY: [employer]70 [facility] [id number] Albumin, U 27.1 % (Normal) Suxcf-4-Ceakajuc, U 3.7 % (Normal) Rtztj-8-Ivxtsein, U 25.2 % (Normal) Beta Globulin, U 28.3 % (Normal) Gamma Globulin, U 15.7 % (Normal) M-Darius, % Not Observed % (Normal) Please note: SPRCS (Normal) Comments: Protein electrophoresis scan will follow via mail or blanket maker. Protein,Total,Urine 7.8 mg/dL (Normal) Range: 0.0-15.0 :21 Protein Electro.,S Comments: PATIENT WAS FASTINGPERFORMED BY: Histogen6370 [facility] [id number] A/G Ratio 1.3 (Normal) Range: 0.7-2.0 Albumin 4.0 g/dL (Normal) Range: 3.2-5.6 Jdkqe-3-Wtbctwse 0.2 g/dL (Normal) Range: 0.1-0.4 Bbdtt-1-Kvpmydlv 0.8 g/dL (Normal) Range: 0.4-1.2 Beta Globulin 1.1 g/dL (Normal) Range: 0.6-1.3 Gamma Globulin 1.0 g/dL (Normal) Range: 0.5-1.6 Globulin, Total 3.1 g/dL (Normal) Range: 2.0-4.5 M-Darius Not Observed g/dL (Normal) Please note: SPRCS (Normal) Comments: Protein electrophoresis scan will follow via mail or blanket maker. :21 VITAMIN B-12 (CYANOCOBALAMIN) Comments: PATIENT WAS FASTINGPERFORMED BY: Kiadis PharmaHackensack University Medical CenterGfimzu6111 [facility] [id number] (90951) Vitamin B12 416 pg/mL (Normal) Range: 211-911 :21 CBC WITH MANUAL DIFF (41447) Comments: PATIENT WAS FASTINGPERFORMED BY: LabCoHackensack University Medical CenterZbhsuh6799 [facility] [id number] Baso (Absolute) 0.0 {x10E3/uL} (Normal) Range: 0.0-0.2 [...] 11.7-15.0 WBC 3.2 {x10E3/uL} (Abnormal) Range: 4.0-10.5 83-Yda-13359:21 METABOLIC PANEL, COMPREHENSIVE Comments: PATIENT WAS FASTINGPERFORMED BY: LabCoHackensack University Medical CenterYpkieu4340 [facility] [id number] (70199) A/G Ratio 1.8 (Normal) Range: 1.1-2.5 Albumin, [...] Serum 88 mg/dL (Normal) Range: 65-99 If -Armenian >60 mL/min/1.73 Range: 60-128 (Normal) Comments: Note: [...] Sodium, Serum 143 mmol/L (Normal) Range: 135-145 96-Edq-64597:21 HEPATIC FUNCTION PANEL Comments: PATIENT WAS FASTINGPERFORMED BY: [employer] Jgjcgk9918 [facility] [id number] (39707) Bilirubin, Direct 0.14 mg/dL (Normal) Range: 0.00-0.40 60-Kei-79607:21 LIPID PANEL (71138) Comments: PATIENT WAS FASTINGPERFORMED BY: [facility] Tyurgf2467 [facility] [id number] Cholesterol, Total 196 mg/dL (Normal) Range: 100-199 Comment SPRCS (Normal) [...] Report See Note (Normal) Comments: Exam Number: [id number] MAMMOGRAM, BILATERAL SCREENING DIGITAL AND CAD HISTORYRoutine screening. Full field digital images were obtained in mediolateral oblique andcraniocaudal projections. CAD images w ere reviewed. The current study is compared to the examinations of April,,and October,, from [facility] in [place], [place]. There is moderately dense fibroglandular parenchyma [...] mammograms werealso examined with computer-aided detection software ([employer]of[employer], [employer] Reported By: LEANN CHAUDHARI M.D. :40 DEXA BONE DENSITY STUDY (HP) Radiology Report See Note (Normal) Comments: Exam Number: [id number] BONE DENSITOMETRY HISTORYPostmenopausal. TECHNIQUE Bone densitometry of the lumbar spine and left hip was performed. Thebest criteria for evaluation of osteoporosis is the T- value, whichrepresents the comparison of the patient's bone mass to an expectedpeak bone mass. For most patients, the mean T-value of L1 through L4is used to evaluate the lumbar spine. Based on the ne west WorldHealth Organization classifications, the hip is [...] left hip. Reported By: LEANN CHAUDHARI M.D. 14-Lbi-887193:24 CHEST, PA AND LATERAL Radiology Report See Note (Normal) Comments: Exam Number: [id number] CERVICAL SPINE 5 VIEWS - AP, LATERAL, [...] Report See Note (Normal) Comments: Exam Number: [id number] LUMBAR SPINE 5 VIEWS - AP, LATERAL, [...] Report See Note (Normal) Comments: Exam Number: [id number] CERVICAL SPINE 5 VIEWS - AP, LATERAL, [...] the lungs. Reported By: BRENDAN RILEY M.D. :31 MYOCARD PERF SPECT REST/STRESS Radiology Report See Note (Normal) Comments: Exam Number: [id number] MYOCARDIAL PERFUSION SCAN 12 millicuries of Tc99m sestamibi was injected at rest. The patientthen exercised according to the Ayo protocol for a total duration of7 m inutes attai lorena 105% of the maximum predicted heart rate at a workload of 8.5 METs. At peak exercise, 34.7 millicuries of Th93cgqtvpfpdf was injected. Stress images were then obtained. [...] ejection fraction. Reported By: BARI MOSLEY M.D. 01-Yqw-812265:33 TSH (23893) Comments: PATIENT WAS FASTINGPERFORMED BY: [facility] Cczumj5780 [facility] [id number] TSH 1.738 {uIU/mL} (Normal) Range: 0.350-5.500 Comments: Adult TSH concentrations below 5.5 uIU/mL do not rule out the presence of subclinical hypothyroidism. :33 CBC WITH MANUAL DIFF (23099) Comments: PATIENT WAS FASTINGClinical Information: ADD DRAW FEE [id number] ADD J [id number] PERFORMED BY: [facility] Dsdkdk7751 [facility] [id number] Baso (Absolute) 0.0 {x10E3/uL} (Normal) Range: 0.0-0.2 [...] 11.7-15.0 WBC 3.9 {x10E3/uL} (Abnormal) Range: 4.0-10.5 :33 METABOLIC PANEL, COMPREHENSIVE Comments: PATIENT WAS FASTINGPERFORMED BY: [facility] Mqmfnd4818 [facility] [id number] (94409) A/G Ratio 2.0 (Normal) Range: 1.1-2.5 Albumin, [...] Serum 81 mg/dL (Normal) Range: 65-99 If -Armenian >60 mL/min (Normal) Range: 60-128 Comments: Note: [...] Sodium, Serum 140 mmol/L (Normal) Range: 135-145 62-Xwh-657562:33 LIPID PANEL (29368) Comments: PATIENT WAS FASTINGPERFORMED BY: [facility] Sniese8866 [facility] [id number] Cholesterol, Total 344 mg/dL (Abnormal) Range: 100-199 Comment SPRCS (Normal) Comments: If initial LDL-cholesterol result is >100 mg/dL, assess forrisk factors. HDL Cholesterol 38 mg/dL (Abnormal) Range: 40-59 LDL Cholesterol Calc 257 mg/dL (Abnormal) Range: 0-99 LDL/HDL Ratio 6.8 {ratio_units} (Abnormal) Range: 0.0-3.2 Triglycerides 243 mg/dL (Abnormal) Range: 0-149 VLDL Cholesterol Celso 49 mg/dL (Abnormal) Range: 5-40 39-Dsq-743499:47 FINGER(S),MIN 2 VIEWS Radiology Report See Note (Normal) Comments: Exam Number: [id number] LEFT THUMB, 3 VIEWS STATEMENTPain. COMPARISON STUDYWrist [...] rounded andcorticated. Reported By: RAGHAV SINGLETARY M.D. 21-Sbq-874621:47 WRIST,MIN 3 VIEWS Radiology Report See Note (Normal) Comments: Exam Number: [id number] LEFT WRIST, 3 VIEWS STATEMENTWrist pain. There [...] GLU 2 HR GLU GTT-2 HOUR from 329:F52504A. 30 Range: 70-120 : GLU GTT-1 HOUR 116 mg/dL (Abnormal) Comments: 2HR GTT GLU 1 HR GLU GTT-1 HOUR from 329:U12722I. 32 Range: 120-170 : GLU GTT-30 min. 125 mg/dL (Normal) Comments: 2HR GTT GLU 1/2 HR GLU GTT-30 min. from 329:D61692D. 02 Range: 110-170 : C-REACTIVE PROT 9.22 [...] Comments: 2HR GTT FASTING GLU GTT-FASTING from 0330:I51591U. Range: 70-110 Comments: GLUCOSE TOLERANCE TEST Reference Interval Non- Adults Fasting 70 - 110 30 minutes 110 - 170 1 hour 120 - 170 2 hour 70 - 120 3 hour 70 - 110 4 hour 70 - 110 5 hour 70 - 110 :00 CULTURE, STOOL See Note (Normal) Comments: No [...] Cyclospora, or Microspo ridia. TESTING PERFORMED AT [facility]. ORIGINAL REPORT ON FILE IN LAB [...] 11.6-14.6 WBC 2.9 K/mm3 (Abnormal) Range: 4.4-11.0 :03 COMP METABOLIC A/G 1.0 {RATIO} (Normal) Range: [...] See Note (Normal) Comments: OCCULT BLOOD NEGATIVE :30 ST OCCULT BLOOD See Note (Normal) Comments: OCCULT BLOOD NEGATIVE Plan of Care Name Dates Details Instructions TIA (transient ischemic attack) : Eprescribed prescriptions (G8553) Indication: TIA (transient ischemic attack) Amnesia : Eprescribed prescriptions (G8553) Indication: Amnesia [...] : Diarrhea Education Indication: Diarrhea Planned Observations HGB A1C (09255)Indication: Elevated hemoglobin A1c On: 98-Khb-558557:43 Request CBC W/AUTO DIFF WBC (12562)Indication: Benign essential hypertension On: 46-Nzu-732183:43 Request METABOLIC PANEL, COMPREHENSIVE (52854)Indication: Benign essential hypertension On: 22-Pbg-814165:43 Request LIPID PANEL (59092)Indication: Hypercholesteremia On: 76-Xea-176731:42 Request CBC W/AUTO DIFF WBC (48993)Indication: Benign essential hypertension On: :11 Request METABOLIC PANEL, COMPREHENSIVE (62018)Indication: Benign essential hypertension On: :11 Request RXZRV-VLNJDLQPVLG-LPNNM (96668)Indication: Fatty liver On: :11 Request UPEP (50549)Indication: Osteopenia On: 44-Bxu-018929:50 Request SPEP (94059)Indication: Osteopenia On: 15-Euo-021835:50 Request TSH (68139)Indication: Diarrhea On: :33 Request CBC WITH MANUAL DIFF (33070)Indication: Diarrhea On: 28-Uay-169394:33 Request METABOLIC PANEL, COMPREHENSIVE (08216)Indication: Diarrhea On: :33 Request RU CULTURE-STOOL (78589)Indication: Diarrhea On: 64-Sip-739982:05 Request OVA & PARASITE DIR SMEAR (88325)Indication: Diarrhea On: 98-Zce-455174:04 Request LEUKOCYTE COUNT, FECAL (28626)Indication: Diarrhea On: 83-Bxy-510256:04 Request C-DIFFICILE, STOOL (12917)Indication: Diarrhea On: 72-Onm-489235:04 Request UPEP (94288)Indication: Osteopenia On: 00-Ptw-229967:19 Request SPEP (94728)Indication: Osteopenia On: 64-Yoi-385400:19 Request TSH (24345)Indication: Vitamin D deficiency, unspecified On: 41-Qqb-621781:32 Request UPEP (77794)Indication: Vitamin D deficiency, unspecified On: :31 Request SPEP ([id number])Indication: Vitamin D deficiency, unspecified On: : Request URINE CALCIUM KAIA TIMED 24 Hour ([id number])Indication: Vitamin D deficiency, unspecified On: :31 Request PARATHORMONE ([id number])Indication: Vitamin D deficiency, unspecified On: : Request PHOSPHORUS ([id number])Indication: Vitamin D deficiency, unspecified On: :31 Request Vitamin D Hydroxy ([id number])Indication: Vitamin D deficiency, unspecified On: :31 Request Vitamin D Hydroxy ([id number])Indication: Vitamin D deficiency, unspecified On: 48-Aab-837195:50 Request CBC WITH MANUAL DIFF ([id number])Indication: Hypercholesteremia On: 22-Cob-265214:50 Request METABOLIC PANEL, COMPREHENSIVE ([id number])Indication: Hypercholesteremia On: 35-Thb-854389:49 Request CBC WITH MANUAL DIFF ([id number])Indication: Polycythemia, secondary On: 90-Rtg-708781:08 Request METABOLIC PANEL, COMPREHENSIVE ([id number])Indication: Migraine On: :08 Request Vitamin D Hydroxy ([id number])Indication: Vitamin D deficiency, unspecified On: 47-Ljm-680048:08 Request LIPID PANEL ([id number])Indication: Hypercholesteremia On: :08 Request IXJUS-COCDLDDFDNX-XAGVT ([id number])Indication: Fatty liver On: 89-Idh-631572:08 Request PT (Prothrobim Time) ([id number])Indication: Fatty liver On: :07 Request PTT (Activated Partial Thromboplastin Time) ([id number])Indication: Fatty liver On: 42-Jsr-398445:07 Request LIPID PANEL ([id number])Indication: Hypercholesteremia On: :33 Request METABOLIC PANEL, COMPREHENSIVE ([id number])Indication: Fatty liver On: 32-Frm-533355:32 Request Vitamin D Hydroxy ([id number])Indication: Vitamin D deficiency, unspecified On: 90-Fgz-566014:16 Request CBC WITH MANUAL DIFF ([id number])Indication: Leukopenia, unspecified type On: 29-Ihu-676587:13 Request METABOLIC PANEL, COMPREHENSIVE ([id number])Indication: Osteopenia On: :39 Request Vitamin D Hydroxy ([id number])Indication: Osteopenia On: :39 Request CBC WITH MANUAL DIFF ([id number])Indication: Leukopenia, unspecified type On: :39 Request HEPATIC FUNCTION PANEL ([id number])Indication: Hypercholesteremia On: :39 Request LIPID PANEL ([id number])Indication: Hypercholesteremia On: :39 Request LDH (LD) (LACTATE DEHYDROGENASE) ([id number]) On: 2-Rdz-860023:24 Request CBC WITH MANUAL DIFF ([id number])Indication: Leukopenia, unspecified type On: :24 Request Urine Protein Electrophoresis (UPEP) ([id number])Indication: elevated albumin On: :38 Request Serum Protein Electrophoresis (SPEP) ([id number])Indication: elevated albumin On: :38 Request CBC WITH MANUAL DIFF ([id number]) On: 91-Tts-987421:38 Request METABOLIC PANEL, COMPREHENSIVE ([id number])Indication: Hypercholesteremia On: 34-Dby-247118:45 Request LIPID PANEL ([id number])Indication: Hypercholesteremia On: :45 Request CBC WITH MANUAL DIFF ([id number])Indication: Leukopenia, unspecified type On: 98-Xqy-061103:45 Request C-Reactive Protein ([id number])Indication: Leukopenia, unspecified type On: 17-Yoo-107967:51 Request Sed Rate Erythrocyte ([id number])Indication: Leukopenia, unspecified type On: 22-Fcy-732501:51 Request GLUCOSE TOLERANCE TEST (GTT) 2 hour ([id number])Indication: Family history of diabetes mellitus On: 02-Mcw-538556:47 Request CBC with manual diff ([id number])Indication: Leukopenia, unspecified type On: 03-Ush-056835:46 Request LIPID PANEL ([id number])Indication: Hypercholesteremia On: 58-Nud-035120:43 Request Comments: in 6 months TSH ([id number])Indication: Diarrhea On: 2-Cws-262784:00 Request Metabolic Panel, Comprehensive ([id number])Indication: Blood in stool On: :56 Request URINALYSIS W/O MICRO ([id number])Indication: Blood in stool On: :49 Request Sed Rate Erythrocyte ([id number])Indication: Blood in stool On: :49 Request CBC (Auto) ([id number])Indication: Blood in stool On: :48 Request RU CULTURE-STOOL ([id number])Indication: Diarrhea On: :27 Request C.Difficile, StoolIndication: Diarrhea On: :27 Request LEUKOCYTE COUNT, FECAL ([id number])Indication: Diarrhea On: :27 Request OCCULT BLOOD FECES SCREEN ([id number])Indication: Diarrhea On: : Request OVA & PARASITE DIR SMEAR ([id number])Indication: Diarrhea On: :27 Request Planned Encounters Medical; [facility] 3 Month FU - On: 20-Sep-2018 9:45 [facility] David William DOa Steffany William DO, Aparna A Planned Procedures CT - Chest (Without Contrast)By: Stewart On: 14-Jun-2018 Intent David GARCIAa Steffany Fast DO Aparna A Comments: high resolution ct of chest rule out interstitial lung disease DUPLEX SCAN OF RENAL ARTERY On: 29-Apr-2018 Intent ([id number])By: Aparna William DO Fast DO, Aparna A ELECTROCARDIOGRAM, COMPLETE (ECG) On: 24-Apr-2018 Intent ([id number])By: David William DOa Steffany Fast DO, Comments: ekg showed normal sinus rhythym, normal axis, no acute st/t wave changes Aparna Steffany EEGBy: Stewart GARCIA Aparna A Fast DO, On: 11-Jan-2018 Intent Aparna Jeter PFT - CompleteBy: David William DOa A On: 31-Aug-2017 Intent Stewart GARCIA Aparna A Ultrasound - LiverBy: Aparna William DO On: 20-Aug-2017 Intent A Fast DO, Aparna A Spirometry ([id number])By: Aparna William DO On: 20-Aug-2017 Intent A Fast DO Aparna A Comments: good effort and curve normal ELECTROCARDIOGRAM, COMPLETE (ECG) On: 20-Aug-2017 Intent ([id number])By: Fast DO, Aparna A Fast DO, Comments: ekg showed normal sinus rhythym, normal axis, no acute st/t wave changes Aparna A Radiology - Chest- PA and LatBy: Fast On: 20-Aug-2017 Intent DO, Aparna A Fast DO, Aparna A SCREENING DIGITAL TOMOSYNTHESIS OF On: 20-Aug-2017 Intent BREAST ([id number])By: Fast DO, Aparna A Comments: end of aug Fast DO, Aparna A BILATERAL MAMMOGRAMS ([id number])By: Fast On: 19-Jul-2016 Intent DO, Aparna A Fast DO, Aparna A Comments: aug DEXA SCAN AXIAL SKELETON ([id number])By: On: 19-Jul-2016 Intent Fast DO, Aparna A Fast DO, Aparna A Comments: aug ELECTROCARDIOGRAM, COMPLETE (ECG) On: 18-Apr-2016 Intent ([id number])By: Fast DO, Aparna A Fast DO, Comments: [...] MAMMOGRAM, SCREENING, BOTH BREAST On: 17-Aug-2015 Intent ([id number])By: Fast DO, Aparna A Fast DO, Aparna A XR STERNOCLAVICULAR JOINT, 3 VIEWS On: 13-Apr-2015 Intent ([id number])By: Fast DO, Aparna A Fast DO, Comments: right Aparna A DEXA SCAN AXIAL SKELETON ([id number])By: On: 10-Aug-2014 Intent Fast DO, Aparna A Fast DO, Aparna A MAMMOGRAM, SCREENING, BOTH BREAST On: 10-Aug-2014 Intent ([id number])By: Fast DO, Aparna A Fast DO, Aparna A CT - Abdomen & Pelvis (IV Contrast On: 20-Jan-2014 Intent Needed)By: Fast DO, Aparna A Fast DO, Comments: stat call results Aparna A Eprescribed prescriptions ([id number])By: On: 03-Dec-2013 Intent Fast DO, Aparna A Fast DO, Aparna A Pelvic and Breast, Medicare On: 06-Oct-2013 Intent ([id number])By: Fast DO, Aparna A Fast DO, Aparna A EKG ([id number])By: Caryn Camacho On: 06-Aug-2013 Intent Comments: ekg showed normal sinus rhythym, normal axis, no acute st/t wave changes MAMMOGRAM, SCREENING, BOTH BREASTS On: 30-Apr-2013 Intent ([id number])By: Fast DO, Aparna A Fast DO, Comments: end dec Aparna A MRI - Lumbar SpineBy: Fast DO, Aparna On: 14-Apr-2013 Intent A Fast DO, Aparna A Radiology - Knee - Right - Weight On: 13-Jan-2013 Intent BearingBy: Fast DO, Aparna A Fast DO, Comments: and sunrise view Aparna A Eprescribed prescriptions ([id number])By: On: 13-Jan-2013 Intent Caryn Camacho MAMMOGRAM, SCREENING, BOTH BREASTS On: 10-Jun-2012 Intent ([id number])By: Fast DO, Aparna A Fast DO, Comments: jun Aparna A DXA, BONE DENSITY, AXIAL SKELETON On: 10-Jun-2012 Intent ([id number])By: Fast DO, Aparna A Fast DO, Comments: jun Aparna A Eprescribed prescriptions ([id number])By: On: 10-Jun-2012 Intent Caryn Camacho DXA, BONE DENSITY, AXIAL SKELETON On: 10-Oct-2011 Intent ([id number])By: Fast DO, Aparna A Fast DO, Comments: december Aparna A TD Injection , IM ([id number])By: On: 10-Oct-2011 Intent Caryn Camacho Comments: 2005 Eprescribed prescriptions ([id number])By: On: 13-Jun-2011 Intent Fast DO, Aparna A Fast DO, Aparna A MAMMOGRAM, SCREENING, BOTH BREASTS On: 13-Jun-2011 Intent ([id number])By: Fast DO, Aparna A Fast DO, Aparna A FLU VAC, SPLIT, >3 YEARS, INTRAMUSC On: 13-Jun-2011 Intent ([id number])By: Caryn Camacho Comments: pt refuses ELECTROCARDIOGRAM, COMPLETE (ECG) On: 30-Dec-2010 Intent ([id number])By: Clarissa Bolden CNP Comments: reviewed with Dr. Garcia, compared to October 10, 2010 EKG ([id number])By: Caryn Camacho On: 10-Oct-2010 Intent Comments: ekg showed normal sinus rhythym, normal axis, no acute st/t wave changes MAMMOGRAM, SCREENING, BOTH BREASTS On: 14-Feb-2010 Intent ([id number])By: Fast DO, Aparna A Fast DO, Comments: end mar Aparna A DXA, BONE DENSITY, AXIAL SKELETON On: 15-Oct-2009 Intent ([id number])By: Fast DO, Aparna A Fast DO, Comments: january Aparna A EKG ([id number])By: Caryn Camacho On: 07-Jul-2009 Intent Comments: ekg showed normal sinus rhythym, normal axis, no acute st/t wave changes upsloping st segments unchanged Ultrasound - SpleenBy: Fast DO, Aparna On: 22-Mar-2009 Intent A Fast DO, Aparna A Ultrasound - LiverBy: Fast DO, Aparna On: 22-Mar-2009 Intent A Fast DO, Aparna A MAMMOGRAM, SCREENING, BOTH BREASTS On: 22-Mar-2009 Intent ([id number])By: Fast DO, Aparna A Fast DO, Aparna A PFT - CompleteBy: Fast DO, Aparna A On: 12-Feb-2008 Intent Fast DO, Aparna A Nuclear Stress Test/Stress On: 23-Jan-2008 Intent SPECT/TreadmillBy: Fast DO, Aparna A Fast DO, Aparna A Radiology - Lumbar SpineBy: Fast DO, On: 23-Jan-2008 Intent Aparna A Fast DO, Aparna A Radiology - Cervical SpineBy: Fast On: 23-Jan-2008 Intent DO, Aparna A Fast DO, Aparna A Spirometry ([id number])By: Fast DO, Aparna On: 23-Jan-2008 Intent A Fast DO, Aparna A Comments: good effort and curve- -with mild obstruction Radiology - Chest- PA and LatBy: Fast On: 23-Jan-2008 Intent DO, Aparna A Fast DO, Aparna A EKG ([id number])By: Fast DO, Aparna A Fast On: 23-Jan-2008 Intent DO, Aparna A Comments: ekg showed normal sinus rhythym, normal axis, no acute st/t wave changes DXA, BONE DENSITY, AXIAL SKELETON On: 23-Jan-2008 Intent ([id number])By: Fast DO, Aparna A Fast DO, Aparna A MAMMOGRAM, SCREENING, BOTH BREASTS On: 23-Jan-2008 Intent ([id number])By: Fast DO, Aparna A Fast DO, Aparna A Endoscopy - Small Bowel SeriesBy: On: 04-Oct-2006 Intent МАРИНА COSBY CNP Instructions Name Dates Details TIA (transient ischemic attack) : How to access health information online Indication: TIA (transient ischemic attack) TIA (transient ischemic attack) : How to access health information online - Detail Indication: TIA (transient ischemic attack) TIA (transient ischemic attack) : Patient Instructions Indication: TIA (transient ischemic attack) Amnesia : How to access health information [...] Non-smoker Non-smoker : Patient Instructions Indication: [facility] : How to access health information online Indication: [facility] Well[facility] Physical : How to access health information online - Detail Indication: [facility] Wellness Physical [facility] Wellness Physical : Patient Instructions Indication: [facility] Wellness Physical Palpitations : How to access [...] available upon request. Encounters Office Visit On: 17-Jun-2018 9:38 Encounter Diagnosis: Amnesia End: 17-Jun-2018 21:21 [facility] Office Visit On: 14-Jun-2018 9:27 Encounter Reason: Follow up tests - Date: (06/03 blood work 05/30 stress report)., [ADDITIONAL REASON] Follow up for chronic medical issues - The patient feels well with minor complai End: 16-Jun-2018 18:13 nts (would like to talk about results), has decreased energy level (getting more tired) and is sleeping well (pretty good, some nights she has issues getting to sleep). Patient has been compliant with i nstructions. Current medication use: no side effects and compliant with dosing regimen. Patient sleeps 6 (6-8) hours per night. Impact of disease: no overall impact. Nutrition: balanced diet. The medica l issues the patient is following up for include All identified problems below, high blood pressure, high cholesterol and osteoporosis/osteopenia. Note for Follow up for chronic medical issues: weight stable no more spells - she does have more fatigue than usual- she saw cardio they did 24 hour urine and was ok and another stress test that she performed well on- she does have folowup with [employer]- she did have some chest pain after the test so I asked her to let him know at followup -her bps at home running 115-130s /80 Encounter Diagnosis: Non-smoker, BMI between 19-24,adult, Influenza vaccination declined (Renamed from Refused influenza vaccine), Interstitial pulmonary fibrosis, Hypercholesteremia, Vitamin D deficiency, unspecified, Fatty liver, Benign essential hypertension, Elevated hemoglobin A1c, TIA (transient ischemic attack) [facility] Office Visit On: 30-Apr-2018 10:24 Encounter Diagnosis: [...] ER visit: note: (DX: TGA. Went to [facility] due to sudden memory loss. Said was doing things and working during the day when she went inside and called her daughter and wasn't End: 13-Jan-2018 22:08 making sense. Was acting normal but just very confused, asking the same question over and over.). 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 The patient has noticed [...] good energy level and is sleeping well. Patikassandra End: 30-Apr-2013 10:32 nt has been compliant [...] side effects and compliant with dosing regimen. Pat ient sleeps 8 hours per night. Nutrition: balanced [...] (723.4) [facility] Payers MedicareMARCELLA WENGERD; steffany guarantor
--- OUTSIDE RECORDS SUMMARY | 2018-08-07 06:51 | XMS RPT_ITS | Continuity of Care Document ---
:1940 Author Organization [facility] Address [address] [place] [address] Phone Care Team Providers Name Role Phone [...] transient global amnesia- talked with Dr espinal regional medical director and she agree not likely tga but [...] 30 {Tablet} Refills: 6 Ordered:08-Mar-2018 Aparna William DO DO, Aparna A Start : 08-Mar-2018 Active FISH OIL, 300MG (Oral Capsule) 1 Capsule Daily for 0 days Refills: 0 Ordered:16-Oct-2006 Caryn Camacho Start : 16-Oct-2006 Active HYOSCYAMINE SULFATE, 0.125MG (Oral Tablet) 1 tab prn (0.125 MG) Active Imitrex 25 MG Oral Tablet 1 Tablet QD PRN for 0 days Quantity: 10 {Tablet} Refills: 3 Ordered:08-Mar-2018 Stewart GARCIA, Aparna ESMEast DO, Aparna A Start : 08-Mar-2018 Active [...] days Quantity: 30 {Capsule} Refills: 0 Ordered:17-Aug-2015 DODavida AFast DO, Aparna A Start : 17-Aug-2015 Active Topamax 25 MG Oral Tablet 1 (one) Tablet daily for 0 days Quantity: 30 {Tablet} Refills: 3 Ordered:08-Mar-2018 Kia Mejia Start : 03-Dec-2017 End : 08-Mar-2018 Inactive CRESTOR, 10MG (Oral Tablet) 1 (one) Tablet couple times week for 0 days Quantity: 30 {Tablet} Refills: 3 Ordered:10-Aug-2014 Aparna AFast DO, Aparna A Start : 10-Aug-2014 End : 10-Aug-2014 Discontinued ERGOCALCIFEROL, 47811IJLV (Oral Capsule) 1 (one) Capsule q week [...] days Quantity: 30 {Capsule} Refills: 3 Ordered:03-Dec-2013 DODavida AFast DO, Aparna A Start : 03-Dec-2013 End : 03-Dec-2013 Discontinued Pravastatin Sodium 10 MG Oral Tablet 1 (one) Tablet qd for 0 days Quantity: 30 {Tablet} Refills: 3 Ordered:18-Apr-2016 Fast DO, Aparna AFast DO, Aparna A Start : 18-Apr-2016 End : 18-Apr-2016 Discontinued PRAVASTATIN SODIUM, 20MG (Oral Tablet) 1 (one) Tablet qd for 0 days Quantity: 30 {Tablet} Refills: 4 Ordered:15-Sep-2015 Aparna William DO, DO Aparna A Start : 13-Apr-2015 End : [...] {Inhalation} Refills: 0 Ordered:14-Jun-2018 Aparna William DO, DO Aparna Jeter Start : 14-Jun-2018 End : 14-Jun-2018 Discontinued [...] Stress Report Result: Comments: See Note; NOTES: [facility] Cardiovascular Services [address] [place] [address] MR#: [id number] Acct: [id number] Name: JACI BEE Rep #: [id number] : 0 1940 77 From: Brendan Koch [...] 76 %. This note was generated with [employer] software. It may contain in correct words, spelling, and punctuation that were not noted in checking the note before signing. 05/30/18 1011 <Electronically signed by Brendan Koch MD> Date Brendan Koch MD CC: Aparna William DO; Brendan Koch MD Date Dictated: 05/30/18 1005 Date Transcribed: 05/30/18 100 Port Cdl A Driver: PM Signed 16-May-2018 Cardiology Visit Report Result: Comments: See Note; NOTES: [facility] [address] [place], [place] [address]kassandra. [address] [place] [address] OFFICE VISIT Date of Service: 05/16/18 MR#: [id number] Acct: [id number] Name: ANASTACIA BEE Rep #: [id number] : 1940 Provider: Brendan Koch MD Age/Sex: 77/F [place] [facility] Status: Signed HPI HPI Details: JACI [...] mg PO DAILY 01/17/16 [History Confirmed 05/16/18] [place]-3 Fatty Acids/Fish Oil [[place] 3 Fish Oil Softgel] 1 ea PO [...] cells PO DAILY 05/16/18 [History Confirmed 05/16/18] [facility] Medical History Premature ventricular contraction (Acute) Hyperlipemia [...] evaluation has been unremarkable thus far, kai cannon could have still a secondary etiology such [...] by BMS Result: Comments: See Note; NOTES: [facility] [address] [place] [address] 12 Lead EKG performed by BMS 05/16/181549 MR#: [id number] Acct: [id number] Name: JACI KIRK RD Rep #: [id number] : 1940 77 From: Brendan Koch MD Attending Dr: Brendan Koch MD Status: DEP AMB Ordering Dr: Brendan Koch MD Date: 05/16/18 [place] [facility] Sex: Shalini Al d: BMS/12 Lead EKG performed by [facility] ECG Report Interpretation Sinus Rhythm Poor R wave progressionElectronically signed on 05/16/2018 at 22:10 by Brendan Koch Software Version 8610 05/16/18 2214 Date Brendan Koch MD CC: Aparna William DO Date Dictated: 05/16/181549 Date Transcribed: 05/16/181549 Port Cdl A Driver: PM Signed 06-May-2018 Renal Artery Duplex Result: Comments: See Note; NOTES: [facility] Cardiovascular Services [address] [place] [address] Renal Artery Duplex Ultrasound 05/06/18 0847 MR#: [id number] Acct: [id number] Name: JACI BEE Rep #: [id number] : 1940 77 From: Thomas Cool MD [...] Date Dictated: 05/06/18 0847 Date Transcribed: 05/06/182131 Port Cdl A Driver: Signed 06-Feb-2018 Electroencephalogram Result: Comments: See Note; NOTES: [facility] Pulmonary Services/Neurology [address] [place] [address] MR#: [id number] Acct: [id number] Name: JACI BEE Rep #: [id number] : 1940 77 From: Annika Salmon MD [...] Dictated: 01/26/18 1023 Date Transcribed: 01/26/18 1023 Port Cdl A Driver: RSR Signed 27-Sep-2017 Pulmonary Function Test Result: Comments: See Note; NOTES: [facility] Pulmonary Services/Neurology [address] [place] [address] MR#: [id number] Acct: [id number] Name: JACI BEE Rep #: [id number] : 1940 76 From: Robert Rodriguez DO Referring Dr: Aparna William DO Status: REG CLI Ordering Dr: Date: Location: [facility] Sex: F C INTRODUCTION: The patient is [...] DO CC: Aparna William DO Date Dictated: 09/27/17 1336 Date Transcribed: 09/27/171335 Port Cdl A Driver: XI Signed 20-Sep-2017 SCREENING MAMM (CAD), BILAT Result: Comments: See Note; NOTES: [facility] Imaging Services [address] [place] [address] SCREENING MAMM (CAD), BILAT MR#: [id number] Acct: [id number] Name: JACI BEE Rep #: [id number] : 1940 F 76 From: Constantino Bryan MD PCP: Aparna William DO Status: REG CLI Study: SCREENING MAMM (CAD), BILAT Date of Exam: 09/20/17 Exam# [id number] Ordering Dr: Aparna William DO MAMMOGRAPHY - [...] delay biopsy of a clinically suspicious abnormality. [id number] Electronically Signed: Constantino Bryan MD at 11:06 EST Tel [phone], Service support , CC: Aparna William DO Port Cdl A Driver: Signed 23-Aug-2017 Liver Result: Comments: See Note; NOTES: [facility] Imaging Services [address] [place] [address] Liver MR#: [id number] Acct: [id number] Name: JACI BEE Rep #: [id number] : [birth year] F 76 From: Constantino Bryan MD PCP: Aparna William DO Status: REG CLI Study: Liver Date of Exam: 08/23/17 Exam# [id number] Ordering Dr: Aparna William DO STUDY: ABDOMINAL [...] Carl Bryan MD at 10:14 EST Tel [phone], Service support , CC: Aparna William DO Port Cdl A Driver: Signed 20-Aug-2017 Chest PA and Lateral Result: Comments: See Note; NOTES: [facility] Imaging Services [address] [place] [address] Chest PA and Lateral MR#: [id number] Acct: [id number] Name: JACI BEE Rep #: [id number] : 1940 F 76 From: Constantino Bryan MD PCP: Aparna William DO Status: REG CLI Study: Chest PA and Lateral Date of Exam: 08/20/17 Exam# [id number] Ordering Dr: Aparna William DO STUDY: X-RAY [...] Constantino Bryan MD at 19:29 EST Tel [phone], Service support , CC: Aparna William DO Port Cdl A Driver: Signed 19-Sep-2016 Dexa Bone Density Study (HP) Result: Comments: See Note; NOTES: [facility] Imaging Services [address] [place] [address] Verdapalma 4d Dexa Bone Density Study (HP) MR#: [id number] Acct: [id number] Name: ROHITKEIKO Kassandra Rep #: [id number] : 1940 F 75 From: Constantino Bryan MD PCP: Aparna William DO Status: REG CLI Study: Dexa Bone Density Study () Date of Exam: 09/19/16 Exam# [id number] Ordering Dr: Aparna William DO STUDY: DUAL [...] Constantino Bryan MD at 14:02 EST Tel [phone], Service support [phone], CC: Aparna William DO Port Cdl A Driver: Signed 19-Sep-2016 SCREENING MAMM (CAD), BILAT Result: Comments: See Note; NOTES: [facility] Imaging Services [address] [place] [address] Verdana 4d SCREENING MAMM (CAD), BILAT MR#: [id number] Acct: [id number] Name: FERMIN BEE Rep #: [id number] : 1940 F 75 From: Constantino Bryan MD PCP: Aparna William DO Status: REG CLI Study: SCREENING MAMM (CAD), BILAT Date of Exam: 09/19/16 Exam# [id number] Ordering Dr: Aparna William DO MAMMOGRAPHY - [...] delay biopsy of a clinically suspicious abnormality. [id number] Electronically Signed: Constantino Bryan MD at 15:03 EST Tel [phone], Service support [phone], CC: Aparna William DO Port Cdl A Driver: Signed 21-Jan-2016 Emergency Department Summary Result: Comments: See Note; NOTES: [facility] Medical Records Department [address] [place] [address] Emergency Department Summary MR#: [id number] Acct: [id number] Name: JACI BEE Rep #: [id number] : 1940 75 From: Erich Contreras MD PCP: Aparna William DO Status: [facility] ER DATE OF SERVICE: 01/17/2016 CHIEF [...] Edwina Yadav C: Aparna William DO T: [facility] JOB: [id number] 01/21/16 0755 <Electronically signed by Erich Contreras MD> Date Erich Contreras MD Cosigner Signature (If Indicated): Date _ CC: Aparna William DO Date Dictated: 01/17/16939 Date Transcribed: 01/17/16939 Port Cdl A Driver: Signed 17-Jan-2016 Discharge Instruction Result: Comments: See Note; NOTES: [facility] Medical Records Department [address] [place] [address] Discharge Instruction 01/17/16 0834 MR#: [id number] Acct: [id number] Name: JACI BEE Rep #: [id number] : 1940 75 From: Erich Contreras MD [...] problems, contact your doctor. Call [facility] ([phone]) or report to the closest Emergency Room. Call 911 if necessary. 01/17/16 0835 &amp ;#60;Electronically signed by Erich Contreras MD> Date Erich Contreras MD Cosigner Signature (If Indicated): Date CC: Aparna William DO 17-Jan-2016 Abdomen/Pelvis without Cont Result: Comments: See Note; NOTES: [facility] Imaging Services [address] [place] [address] Verdana 4d Abdomen/Pelvis without Cont MR#: [id number] Acct: [id number] Name: ROHITJACI E Rep #: [id number] : 1940 F 75 From: Constantino Bryan MD PCP: Aparna William DO Status: REG ER Study: Abdomen/Pelvis without Cont Date of Exam: 01/17/16 Exam# [id number] Ord ering Dr: Erich Contreras MD STUDY: [...] Constantino Bryan MD at 8:11 EDT Tel [phone], Service support [phone], CC: Aparna William DO; Erich Contreras MD Port Cdl A Driver: Signed 10-Jan-2016 Echocardiogram Complete Result: Comments: See Note; NOTES: [facility] Cardiovascular Services [address] [place] [address] Echo Complete 01/10/16 0848 MR#: [id number] Acct: [id number] Name: JACI HA Rep #: [id number] : 1940 75 From: Bari Mosley MD Attending Dr: Aparna William DO Status: REG CLI Ordering Dr: Aparna William DO Date: 01/10/16 Location: [facility] Sex: F C Admitted: Reason For Study: [...] DO Date Dictated: 01/10/1648 Date Transcribed: 01/10/161228 Port Cdl A Driver: Signed 10-Jan-2016 Nuclear Stress Test - Treadmil Result: Comments: See Note; NOTES: [facility] Imaging Services [address] [place] [address] Verdana 4d Nuclear Stress Test - Treadmil MR#: [id number] Acct: [id number] N debbie: JACI BEE Rep #: [id number] : 1940 75 From: Bari Mosley MD [...] capacity. Bari Mosley MD T: NTS JOB: [id number] 01/14/1609 <Electronically signed by Bari Mosley MD> Date Bari Mosley MD CC: Aparna William DO Date Dictated: 01/10/16933 Date Transcribed: 01/10/16933 Port Cdl A Driver: Signed 21-Dec-2015 EKG (53593) Comments: ekg showed normal sinus rhythym, normal axis, no acute st/t wave changes Result: [MEASUREMENTS ANALYSIS] Date of Test: 12/21/2015 11:21:34; Heart Rate: 71; [place] Interval: 178; QRS: 88; QT Interval: 396; Corrected QT Interval (QTc): 415; P Wave [place]: 54; QRS Wave [place]: 12; T Wave [place]: 45; Blood Pressure: 154/90 [ECG DIAGNOSTIC STATEMENTS] Date of Test: 12/21/2015 11:21:34; Summary: Sinus Rhythm WITHIN NORMAL LIMITS 17-Sep-2015 Bilat Scrn Digital AND CAD Result: Comments: See Note; NOTES: [facility] Imaging Services [address] [place] [address] Verdana 4d Bilat Scrn Digital AND CAD MR#: [id number] Acct: [id number] Name: JACI BEE Rep #: [id number] : 1940 F 74 From: Constantino Bryan MD PCP: Aparna William DO Status: REG CLI Study: Bilat Scrn Digital AND CAD Date of Exam: 09/17/15 Exam# [id number] Orde ring Dr: Aparna William DO MAMMOGRAPHY [...] delay biopsy of a clinically suspicious abnormality. [id number] Electronically Signed: Constantino Bryan MD at 14:44 EST Tel [phone], Service support [phone], CC: Aparna William DO Port Cdl A Driver: Signed 13-Apr-2015 S-C Jts Min 3 Views Result: Comments: See Note; NOTES: [facility] Imaging Services [address] [place] [address] Radiology Report MR#: [id number] Acct: [id number] Name: JACI BEE Rep #: [id number] : 1940 F 74 From: Constantino Bryan MD PCP: Aparna Willima DO Status: REG CLI Study: S-C Jts Min 3 Views Date of Exam: 04/13/15 Exam# [id number] Ordering Dr: Aparna William DO STUDY: X-RAY [...] Constantino Bryan MD at 15:10 EDT Tel [phone], Service s upport [phone], RAD/S-C Jts Min 3 Views IMPRESSION: Normal x-ray of the bilateral sternoclavicular articulations. Electronically Signed: Constantino martinez MD at 15:10 EDT Tel [phone], Service support [phone], CC: Aparna William DO Port Cdl A Driver: Signed 20-Aug-2014 Bilat Scrn Digital AND CAD Result: Comments: See Note; NOTES: [facility] Imaging Services [address] [place] [address] Breast Imaging Report MR#: [id number] Acct: [id number] Name: JACI BEE Rep #: [id number] : 1940 F 73 From: Constantino Bryan MD PCP: Aparna William DO Status: REG CLI Study: Bilat Scrn Digital AND CAD Date of Exam: 08/20/14 Exam# [id number] Ordering Dr: Aparna William DO MAMMOGRAPHY - BILATERAL SCREENING REASON FOR EXAM: Female, 73 years old. Routine annual screening examination. PERTINENT HISTORY: Non-contributory. TECHNIQUE: Digital examination. Mediolater al oblique (MLO) and craniocaudad (CC) views of both breasts were obtained. CAD: CAD was performed on this study. COMPARISON: Comparison is made with prior study dated July 21, 2013 and [facility] 2011. FINDINGS: Breast Composition: There are scattered [...] Constantino harden MD at 10:22 EST Tel [phone], Service support [phone], CC: Aparna William DO Port Cdl A Driver: Signed 20-Aug-2014 Dexa Bone Density Study (HP) Result: Comments: See Note; NOTES: [facility] Imaging Services [address] [place] [address] Bone Density Report MR#: [id number] Acct: [id number] Name: JACI BEE Rep #: [id number] : 1940 F 73 From: Constantino Bryan MD PCP: Aparna William DO Status: REG CLI Study: Dexa Bone Density Study (HP) Date of Exam: 08/20/14 Exam# [id number] Ordering Dr: Aparna William DO STUDY: DUAL [...] Constantino Bryan MD at 11:26 EST Tel [phone], Service support [phone], CC: Aparna William DO Port Cdl A Driver: Signed 20-Jan-2014 Abdomen/Pelvis WITH Contrast Result: Comments: See Note; NOTES: [facility] Imaging Services [address] [place] [address] CAT Scan Report MR#: [id number] Acct: [id number] Name: JACI BEE Rep #: [id number] : 1940 F 73 From: Jose J Gordillo MD PCP: Aparna William DO Status: REG CLI Study: Abdomen/Pelvis WITH Contrast Date of Exam: 01/20/14 Exam# [id number] Ordering Dr: Aparna William DO STUD Y: [...] MD at 17:37 EDT , Service support [phone], CC: Aparna William DO Port Cdl A Driver: Signed 21-Jul-2013 Gege Hernandez Digital & CAD Result: Comments: See Note; NOTES: [facility] Imaging Services [address] [place] [address] Breast Imaging Report MR#: [id number] Acct: [id number] Name: JACI BEE Rep #: [id number] : 1940 F 72 From: Jose J Gotti MD PCP: Aparna William DO Status: REG CLI Exam# [id number] Ordering Dr: Aparna iWlliam DO MAMMOGRAPHY - BILATERAL SCREENING REASON FOR [...] M.D. at 16:22 EST , Service support [phone], CC: Aparna William DO Port Cdl A Driver: Signed 11-Jun-2013 PT Discharge Summary Result: Comments: See Note; NOTES: [facility] Physical Therapy [facility] [place] [address] Fax REHABILITATION SERVICES DISCHARGE SUMMARY MR#: [id number] Acct: [id number] Name: JACI BEE Rep #: [id number] : 1940 72 From: Sheryl Armstrong Referring [...] better. She is excited to report that kassandra is running up and down the steps [...] C: Aparna William DO T: NTS JOB: [id number] <Electronically signed by Sheryl Armstrong > 06/11/13 1344 CC: * Signed 28-May-2013 Inital Evaluation - PT Result: Comments: See Note; NOTES: [facility] Physical Therapy [facility] [address] [place], [place] [address] Fax REHABILITATION SERVICES INITIAL EVALUATION MR#: [id number] Acct: [id number] Name: JACI BEE Rep #: [id number] : 1940 72 From: Sheryl Armstrong Referring [...] decreased independent exercise knowledge. Oswestry equals 10, Z7512-GQ, X2830-FM. GOALS: 1. Decrease complaint of low back [...] first. 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 It has not been cleared orapproved by the Food and Drug Administration. VMA,UR 1.2 mg/L (Normal) DOPAMINE,U24 80 {ug/24_hr} (Normal) Range: 0-510 Comments: Performed at: [address] [id number] Director: Prince García MD, Phone: [phone] TESTING PE RFORMED AT [facility]. ORIGINAL REPORT ON FILE IN LAB CONTAINS ADDITIONAL TEST SITE INFORMATION. DOPAMINE,UR 40 ug/L (Normal) NOREPINEPH,U24 28 {ug/24_hr} (Normal) Range: 0-135 NOREPINEPH,UR 14 ug/L (Normal) EPINEPHRINE,U24 4 {ug/24_hr} (Normal) Range: 0-20 EPINEPHRINE, UR 2 ug/L (Normal) :38 CBC with auto diff (82902) Comments: PATIENT WAS FASTINGPERFORMED BY: LabCoVirtua BerlinXyujdb8217 [facility] [id number] Immature Grans (Abs) 0.0 {x10E3/uL} (Normal) Range: [...] PANEL, COMPREHENSIVE Comments: PATIENT WAS FASTINGPERFORMED BY: [facility] BerlinWhmwap2785 [facility] [id number]; appt 06/14 (23199) ALT (SGPT) 21 [iU]/L (Normal) Range: 0-32 [...] mg/dL (Normal) Range: 65-99 :38 HGB A1C (70781) Comments: PATIENT WAS FASTINGPERFORMED BY: [facility] BerlinJplbua1959 [facility] [id number] Hemoglobin A1c 5.5 % (Normal) Range: 4.8-5.6 Comments: . Prediabetes: 5.7 - 6.4 Diabetes: >6.4 Glycemic control for adults with diabetes: <7.0 :38 LIPID PANEL (12765) Comments: PATIENT WAS FASTINGPERFORMED BY: [facility] Wybcoa8727 [facility] [id number] LDL/HDL Ratio 3.2 {ratio} (Normal) Range: 0.0-3.2 Comments: LDL/HDL Ratio Men Women 1/2 Avg.Risk 1.0 1.5 Av g.Risk 3.6 3.2 2X Avg.Risk 6.2 5.0 3X Avg.Risk 8.0 6.1 LDL Cholesterol Calc 151 mg/dL (Abnormal) Range: 0-99 VLDL Cholesterol Celso 13 mg/dL (Normal) Range: 5-40 HDL Cholesterol 47 mg/dL (Normal) Triglycerides 63 mg/dL (Normal) Range: 0-149 Cholesterol, Total 211 mg/dL (Abnormal) Range: 100-199 :38 QMLTS-JJGSWSIDMQW-AVVYN (65805) Comments: PATIENT WAS FASTINGPERFORMED BY: [employer]6370 [facility] [id number] AFP, Serum, Tumor Marker 1.7 ng/mL (Normal) Range: 0.0-8.3 Comments: Jona ECLIA methodology 82-Bfh-412161:25 HGB A1C (37581) Comments: PATIENT WAS FASTINGPERFORMED BY: [facility] SourceVirt[facility] BerlinXbybkv8260 [facility] [id number] Hemoglobin A1c 5.3 % (Normal) Range: 4.8-5.6 Comments: . Pre-diabetes: 5.7 - 6.4 Diabetes: >6.4 Glycemic control for adults with diabetes: <7.0 67-Kbm-091792:25 MICROALBUMIN: CREATININE RATIO Comments: PATIENT WAS FASTINGPERFORMED BY: [employer] Yvyoev0063 [facility] [id number] (93487) AND (45650) Alb/Creat Ratio <19.6 {mg/g_creat} (Normal) Range: 0.0-30.0 Albumin, Urine <3.0 ug/mL (Normal) Creatinine, Urine 15.3 mg/dL (Normal) 04-Gyq-367617:25 LIPID PANEL (52221) Comments: PATIENT WAS FASTINGPERFORMED BY: [facility] BerlinAsevxd4669 [facility] [id number] LDL/HDL Ratio 2.6 {ratio} (Normal) Range: 0.0-3.2 Comments: LDL/HDL Ratio Men Women 1/2 Avg.Risk 1.0 1.5 Av g.Risk 3.6 3.2 2X Avg.Risk 6.2 5.0 3X Avg.Risk 8.0 6.1 LDL Cholesterol Calc 138 mg/dL (Abnormal) Range: 0-99 VLDL Cholesterol Cel[place] 15 mg/dL (Normal) Range: 5-40 HDL Cholesterol 53 mg/dL (Normal) Triglycerides 76 mg/dL (Normal) Range: 0-149 Cholesterol, Total 206 mg/dL (Abnormal) Range: 100-199 47-Rbk-735158:25 CBC & PLATELETS (AUTO) Comments: PATIENT WAS FASTINGPERFORMED BY: [facility] BerlinQfvehr6868 [facility] [id number] (59092) Platelets 166 {x10E3/uL} (Normal) Range: 150-379 RDW 12.3 % (Normal) Range: 12.3-15.4 MCHC 34.1 g/dL (Normal) Range: 31.5-35.7 MCH 29.9 pg (Normal) Range: 26.6-33.0 MCV 88 fL (Normal) Range: 79-97 Hematocrit 45.4 % (Normal) Range: 34.0-46.6 Hemoglobin 15.5 g/dL (Normal) Range: 11.1-15.9 RBC 5.19 {x10E6/uL} (Normal) Range: 3.77-5.28 WBC 3.9 {x10E3/uL} (Normal) Range: 3.4-10.8 48-Qub-438865:25 METABOLIC PANEL, COMPREHENSIVE Comments: PATIENT WAS FASTINGPERFORMED BY: [facility] BerlinYehklb0262 [facility] [id number] (75624) ALT (SGPT) 21 [iU]/L (Normal) Range: 0-32 [...] 8-27 Glucose 82 mg/dL (Normal) Range: 65-99 83-Zsr-196874:14 CBC W/AUTO DIFF WBC Comments: PATIENT NOT FASTINGPERFORMED BY: [facility] Hnjkhb0350 [facility] [id number] Information: NURSE DRAW (87064) Immature Grans (Abs) 0.0 {x10E3/uL} (Normal) Range: [...] 3.77-5.28 WBC 6.1 {x10E3/uL} (Normal) Range: 3.4-10.8 47-Bcs-658575:14 METABOLIC PANEL, COMPREHENSIVE Comments: PATIENT NOT FASTINGPERFORMED BY: [facility] Lbract7765 [facility] [id number]; review 12/03 (13432) ALT (SGPT) 25 [iU]/L (Normal) Range: 0-32 [...] 8-27 Glucose 81 mg/dL (Normal) Range: 65-99 06-Jil-178275:42 TSH (38802) Comments: PATIENT NOT FASTINGPERFORMED BY: [facility] Kgggih3882 [facility] [id number] TSH 3.330 {uIU/mL} (Normal) Range: 0.450-4.500 77-Kqo-631837:42 SED RATE ERYTHROCYTE (43840) Comments: PATIENT NOT FASTINGPERFORMED BY: [facility] [id number] Sedimentation Rate-Westergren 4 mm/h (Normal) Range: 0-40 58-Ufe-114747:42 C-REACTIVE PROTEIN (10254) Comments: PATIENT NOT FASTINGPERFORMED BY: [facility] [id number] C-Reactive Protein, Quant <0.3 mg/L (Normal) Range: 0.0-4.9 89-Kge-672862:42 HEPATITIS C ANTIBODY (97023) Comments: PATIENT NOT FASTINGPERFORMED BY: [facility] [id number] Hep C Virus Ab <0.1 {s/co_ratio} (Normal) Range: 0.0-0.9 Comments: Negative: < 0.8 Indeterminate: 0.8 - 0.9 Positive: > 0.9 . The CDC recommends that a positive HCV antibody result be followed up with a HCV Nucleic Acid Amplification test (285609). 34-Dea-831231:42 AUAOM-LVFYHHZSZGR-HCLGF (03459) Comments: PATIENT NOT FASTINGPERFORMED BY: [facility] Hreyzq8110 [facility] [id number] AFP, Serum, Tumor Marker 1.9 ng/mL (Normal) Range: 0.0-8.3 Comments: Jona ECLIA methodology 82-Oso-876900:47 LIPOPROTEIN, BLD, BY NMR Comments: PATIENT WAS FASTINGPERFORMED BY: BN [facility] Lidmbckhgq7725 [facility] [id number] BY: CB [facility] Voudit5056 [facility] [id number]; can review on 08/20 (90398) LP-IR Score 71 (Abnormal) Comments: INSULIN RESISTANCE MARKER <--Insulin Sensitive Insulin Resistant--> Percentile in Reference PopulationInsulin Resistance ScoreLP-IR Score Low 25th 50th 75th High <27 27 45 63 >63LP-IR Score is inaccurate if patient is non-fasting. .The LP-IR score is a laboratory developed i [facility] that has beenassociated with insulin resistance and [...] 1600 - 2000 Very High > 2000 86-Syb-173887:47 MICROALBUMIN: CREATININE Comments: PATIENT WAS FASTINGPERFORMED BY: [employer] [address] [id number] BY: Local [employer] Jojazn0914 Lou [facility] [id number] RATIO (28393) AND (05736) Alb/Creat Ratio <12.7 {mg/g_creat} (Normal) Range: 0.0-30.0 Albumin, Urine <3.0 ug/mL (Normal) Creatinine, Urine 23.6 mg/dL (Normal) 11-Xef-183414:47 CBC with auto diff Comments: PATIENT WAS FASTINGPERFORMED BY: [employer] [address] [id number] BY: Earth Class Mail70 [facility] [id number] (59818) Immature Grans (Abs) 0.0 {x10E3/uL} (Normal) Range: [...] 3.77-5.28 WBC 3.6 {x10E3/uL} (Normal) Range: 3.4-10.8 30-Bza-632181:47 METABOLIC PANEL, Comments: PATIENT WAS FASTINGPERFORMED BY: [facility] [address] [id number] BY: [facility] [address] [id number] COMPREHENSIVE (64665) ALT (SGPT) 24 [iU]/L (Normal) Range: 0-32 [...] Glucose, Serum 80 mg/dL (Normal) Range: 65-99 07-Fkx-418170:47 HGB A1C (03239) Comments: PATIENT WAS FASTINGPERFORMED BY: LabZexSports.com[address] [id number] BY: LabZexSports.comKathleen Ville 7984770 [facility] [id number] Hemoglobin A1c 5.4 % (Normal) Range: 4.8-5.6 Comments: . Pre-diabetes: 5.7 - 6.4 Diabetes: >6.4 Glycemic control for adults with diabetes: <7.0 01-May-20178:49 CBC with auto diff Comments: PATIENT WAS FASTINGPERFORMED BY: [facility] [id number] Information: [id number] (83031) Immature Grans (Abs) 0.0 {x10E3/uL} (Normal) Range: [...] PANEL, COMPREHENSIVE Comments: PATIENT WAS FASTINGPERFORMED BY: LabCoVirtua BerlinLohpou3121 [facility] [id number] (87520) ALT (SGPT) 29 [iU]/L (Normal) Range: 0-32 [...] mg/dL (Normal) Range: 65-99 :49 HGB A1C (86833) Comments: PATIENT WAS FASTINGPERFORMED BY: Scaffold70 [facility] [id number] Hemoglobin A1c 5.5 % (Normal) Range: 4.8-5.6 Comments: . Pre-diabetes: 5.7 - 6.4 Diabetes: >6.4 Glycemic control for adults with diabetes: <7.0 :49 LIPID PANEL (10980) Comments: PATIENT WAS FASTINGPERFORMED BY: [facility] CresseyVirtua BerlinIflcts0268 [facility] [id number]; review at 05/14 appt LDL/HDL Ratio 2.1 [...] mg/dL (Normal) Range: 100-199 :27 CBC (AUTO) (38229) Comments: PATIENT WAS FASTINGPERFORMED BY: LabDaniel Ville 852317 [facility] [id number] BY: [facility] CresseyVirtua BerlinEtitnf3125 [facility] [id number] Platelets 184 {x10E3/uL} (Normal) Range: 150-379 RDW 12.7 % (Normal) Range: 12.3-15.4 MCHC 32.5 g/dL (Normal) Range: 31.5-35.7 MCH 29.5 pg (Normal) Range: 26.6-33.0 MCV 91 fL (Normal) Range: 79-97 Hematocrit 46.8 % (Abnormal) Range: 34.0-46.6 Hemoglobin 15.2 g/dL (Normal) Range: 11.1-15.9 RBC 5.15 {x10E6/uL} (Normal) Range: 3.77-5.28 WBC 4.5 {x10E3/uL} (Normal) Range: 3.4-10.8 :27 Vitamin D Hydroxy Comments: PATIENT WAS FASTINGPERFORMED BY: NeuroQuest[address] [id number] BY: Earth Class Mail70 [facility] [id number] (21047) Vitamin D, 25-Hydroxy 49.9 ng/mL (Normal) Range: 30.0-100.0 Comments: Vitamin D deficiency has been defined by the [place] [facility]cine and an Endocrine Society practice guideline as alevel of serum 25-OH vitamin D less than 20 ng/mL (1,2).The Endocrine Society went on to further define vitamin Dinsufficiency as a level between 21 and 29 ng/mL (2).1. IOM ([place] of Medicine). 2010. Dietary reference intakes for calcium and D. [place]: The National Academies Press.2. Mayur MF, Scar LAWRENCE, Claribel CAMP, et al. Evaluation, treatment, and prevention of vitamin D deficiency: an Endocrine Society clinical practice guideline. JCEM. 2010; 96(7):1911-30. :27 MICROALBUMIN: CREATININE Comments: PATIENT WAS FASTINGPERFORMED BY: [facility] [id number] BY: Earth Class Mail70 [facility] [id number] RATIO (75464) AND (66439) Microalb/Creat Ratio <13.2 {mg/g_creat} (Normal) Range: 0.0-30.0 Creatinine, Urine 22.8 mg/dL (Normal) Microalbumin, Urine <3.0 ug/mL (Normal) :27 HGB A1C (38521) Comments: PATIENT WAS FASTINGPERFORMED BY: PressPad[address] [id number] BY: [facility] CresseyVirtua BerlinWbdeyh3771 [facility] [id number] Hemoglobin A1c 5.5 % (Normal) Range: 4.8-5.6 Comments: . Pre-diabetes: 5.7 - 6.4 Diabetes: >6.4 Glycemic control for adults with diabetes: <7.0 :27 METABOLIC PANEL, Comments: PATIENT WAS FASTINGPERFORMED BY: [employer] [address] [id number] BY: [facility] CresseyVirtua BerlinPscayo1617 [facility] [id number] COMPREHENSIVE (24467) ALT (SGPT) 27 [iU]/L (Normal) Range: 0-32 [...] Glucose, Serum 84 mg/dL (Normal) Range: 65-99 28-Xlt-91254:27 LIPOPROTEIN, BLD, BY NMR Comments: PATIENT WAS FASTINGPERFORMED BY: BN [facility] Yvyxvdfvui3176 [facility] [id number] BY: CB [facility] Trtzqp9013 [facility] [id number]; non-emergent till apt (57838) LP-IR Score 62 (Abnormal) Comments: INSULIN RESISTANCE MARKER <--Insulin Sensitive Insulin Resistant--> Percentile in Reference PopulationInsulin Resistance ScoreLP-IR Score Low 25th 50th 75th High <27 27 45 63 >63LP-IR Score is inaccurate if patient is non-fasting. .The LP-IR score is a laboratory developed i [facility] that has beenassociated with insulin resistance and [...] were developed and their performance characteristicsdetermined by [facility]. These assays have not been cleared by [...] 1600 - 2000 Very High > 2000 82-Blv-37321:27 [id number] (33551) Comments: PATIENT WAS FASTINGPERFORMED BY: Connectbright1447 [facility] [id number] BY: [employer] Group6370 [facility] [place] [id number] AFP, Serum, Tumor Marker 2.6 ng/mL (Normal) Range: 0.0-8.3 Comments: Jona ECLIA methodology :48 Vitamin D Hydroxy Comments: PATIENT WAS FASTINGPERFORMED BY: Connectbright1447 [facility] [id number] BY: ISO Group6370 [facility] [place] [id number] (86053) Vitamin D, 25-Hydroxy 40.8 ng/mL (Normal) Range: 30.0-100.0 Comments: Vitamin D deficiency has been defined by the [place] ofMedicine and an Endocrine Society practice guideline as alevel of serum 25-OH vitamin D less than 20 ng/mL (1,2).The Endocrine Society went on to further define vitamin Dinsufficiency as a level between 21 and 29 ng/mL (2).1. IOM ([place] of Medicine). 2010. Dietary reference intakes for calcium and D. [place]: The National Academies Press.2. Mayur MF, Scar NC, Claribel CAMP, et al. Evaluation, treatment, and prevention of vitamin D deficiency: an Endocrine Society clinical practice guideline. JCEM. 2010; 96(7):1911-30. :48 HGB A1C (37267) Comments: PATIENT WAS FASTINGPERFORMED BY: NeuroQuestton1447 [facility] [id number] BY: [employer] Group6370 [facility] [id number] Hemoglobin A1c 5.5 % (Normal) Range: 4.8-5.6 Comments: . Pre-diabetes: 5.7 - 6.4 Diabetes: >6.4 Glycemic control for adults with diabetes: <7.0 :48 CBC W/AUTO DIFF WBC Comments: PATIENT WAS FASTINGPERFORMED BY: NeuroQuestton1447 [facility] [id number] BY: [employer] Group6370 [facility] [id number] (15238) Immature Grans (Abs) 0.0 {x10E3/uL} (Normal) Range: [...] 3.77-5.28 WBC 3.8 {x10E3/uL} (Normal) Range: 3.4-10.8 78-Flj-65426:48 METABOLIC PANEL, Comments: PATIENT WAS FASTINGPERFORMED BY: BN [facility] [address] [id number] BY: CB [facility] Rqpyri5024 [facility] [id number] COMPREHENSIVE (12714) ALT (SGPT) 21 [iU]/L (Normal) Range: 0-32 [...] Glucose, Serum 92 mg/dL (Normal) Range: 65-99 69-Qnp-13358:48 LIPOPROTEIN, BLD, BY NMR Comments: PATIENT WAS FASTINGPERFORMED BY: BN [facility] Jzkvaalsel0069 [facility] [id number] BY: CB [facility] Geitxq1762 [facility] [id number] (20707) LP-IR Score 67 (Abnormal) Comments: INSULIN RESISTANCE MARKER <--Insulin Sensitive Insulin Resistant--> Percentile in Reference PopulationInsulin Resistance ScoreLP-IR Score Low 25th 50th 75th High <27 27 45 63 >63LP-IR Score is inaccurate if patient is non-fasting. .The LP-IR score is a laboratory developed i [facility] that has beenassociated with insulin resistance and [...] were developed and their performance characteristicsdetermined by [employer]. These assays have not been cleared by [place] Food and Drug Administration. The clinical utility [...] High > 2000 :48 Vitamin D Hydroxy (32010) Comments: PATIENT WAS FASTINGPERFORMED BY: BN [facility] Jetdbmnlfh6804 [facility] [id number] BY: CB [facility] Fqukna9733 [facility] [id number] Vitamin D, 25-Hydroxy 43.7 ng/mL (Normal) Range: 30.0-100.0 Comments: Vitamin D deficiency has been defined by the [place] [facility]cine and an Endocrine Society practice guideline as alevel of serum 25-OH vitamin D less than 20 ng/mL (1,2).The Endocrine Society went on to further define vitamin Dinsufficiency as a level between 21 and 29 ng/mL (2).1. IOM ([place] of Medicine). 2010. Dietary reference intakes for calcium and D. [place]: The National Academies Press.2. Mayur WALKER, Scar LAWRENCE, Claribel CAMP, et al. Evaluation, treatment, and prevention of vitamin D deficiency: an Endocrine Society clinical practice guideline. JCEM. 2010; 96(7):1911-30. :48 [id number] (68811) Comments: PATIENT WAS FASTINGPERFORMED BY: ParasitX[address] [id number] BY: [facility]6370 [facility] [id number] AFP, Serum, Tumor Marker 2.0 ng/mL (Normal) Range: 0.0-8.3 Comments: Jona ECLIA methodology :48 CBC with auto diff Comments: PATIENT WAS FASTINGPERFORMED BY: ParasitX[address] [id number] BY: [facility]6370 [facility] [id number] (28637) Immature Grans (Abs) 0.0 {x10E3/uL} (Normal) Range: [...] Comments: PATIENT WAS FASTINGPERFORMED BY: BN [facility] Ehmgvmjnga6128 [facility] [id number] BY: CB [facility] Uxeusd1140 [facility] [id number] COMPREHENSIVE (14913) ALT (SGPT) 27 [iU]/L (Normal) Range: 0-32 [...] Comments: PATIENT WAS FASTINGPERFORMED BY: BN [facility] Sovsozztlx5800 [facility] [id number] BY: CB [facility] Umotcr4625 [facility] [id number]; non-emergent till apt next week (51503) LP-IR Score 71 (Abnormal) Comments: INSULIN RESISTANCE MARKER <--Insulin Sensitive Insulin Resistant--> Percentile in Reference PopulationInsulin Resistance ScoreLP-IR Score Low 25th 50th 75th High <27 27 45 63 >63LP-IR Score is inaccurate if patient is non-fasting. .The LP-IR score is a laboratory developed i [facility] that has beenassociated with insulin resistance and [...] were developed and their performance characteristicsdetermined by [facility]. These assays have not been cleared by [...] Very High > 2000 :48 HGB A1C (32216) Comments: PATIENT WAS FASTINGPERFORMED BY: [employer] [address] [id number] BY: [employer] Group6370 [facility] [id number] Hemoglobin A1c 5.7 % (Abnormal) Range: 4.8-5.6 Comments: . Pre-diabetes: 5.7 - 6.4 Diabetes: >6.4 Glycemic control for adults with diabetes: <7.0 :48 MICROALBUMIN: CREATININE Comments: PATIENT WAS FASTINGPERFORMED BY: [employer] [address] [id number] BY: Earth Class Mail70 [facility] [id number] RATIO (59684) AND (64827) Microalb/Creat Ratio 7.8 {mg/g_creat} (Normal) Range: 0.0-30.0 Microalbumin, Urine 5.3 ug/mL (Normal) Creatinine, Urine 68.0 mg/dL (Normal) 53-Whq-616959:11 CALCULUS CHEMICAL QUANTI Comments: PATIENT NOT FASTINGPERFORMED BY: [employer] [address] [id number] Information: [id number] (91821) Please note: SPRCS (Normal) Comments: Calculi report without photograph will follow via computer, mail,or bowling pin setters installer delivery.Physician questions regarding Calculi Analysis contact [facility] at:[phone]. Nidus No Nidus visualized (Normal) Calcium phosphate 05 % (Normal) Ca oxalate monohydr. 95 % (Normal) Composition SPRCS (Normal) Comments: Percentage (Represents the % composition) Weight 14.0 mg (Normal) Size 3x3x2 mm (Normal) Color Brown (Normal) :20 Basic Metabolic Profile (BMP) Comments: [facility] [address] [place], [place], [id number] GAP 9 (Normal) Range: 5-15 CO2 25.0 [...] A.D.A. criteria. :20 CBC W/Diff, Automated Comments: [facility] Ed[address] [place], [place], [id number] Absolute Lymph 0.66 {X10_3/ul} (Abnormal) Range: 0.83-4.51 [...] Has pt arrived? YHow was Urine Obtained? [facility] Ozbygrifvu90[address] [place], [place], [id number] MUCUS, URINE 0 SEEN {/hpf} (Normal) BACTERIA [...] COLOR Yellow (Normal) :39 Vitamin D Hydroxy (40783) Comments: PATIENT WAS FASTINGPERFORMED BY: LabCoVirtua BerlinRkbplx2696 [facility] [id number] Vitamin D, 25-Hydroxy 36.0 ng/mL (Normal) Range: 30.0-100.0 Comments: Vitamin D deficiency has been defined by the [place] [facility] Hospitalcine and an Endocrine Society practice guideline as alevel of serum 25-OH vitamin D less than 20 ng/mL (1,2).The Endocrine Society went on to further define vitamin Dinsufficiency as a level between 21 and 29 ng/mL (2).1. IOM ([place] of Medicine). 2010. Dietary reference intakes for calcium and D. [place]: The National Academies Press.2. Mayur MF, Scar NC, Claribel CAMP, et al. Evaluation, treatment, and prevention of vitamin D deficiency: an Endocrine Society clinical practice guideline. JCEM. 2010; 96(7):1911-30. :39 CBC W/AUTO DIFF WBC Comments: PATIENT WAS FASTINGPERFORMED BY: LabCoVirtua BerlinCtfvpv4861 [facility] [id number] Information: [id number] (80524) Immature Grans (Abs) 0.0 {x10E3/uL} (Normal) Range: [...] PANEL, COMPREHENSIVE Comments: PATIENT WAS FASTINGPERFORMED BY: LabCoVirtua BerlinLxfgoy2184 [facility] [id number] (79638) ALT (SGPT) 24 [iU]/L (Normal) Range: 0-32 [...] mg/dL (Normal) Range: 65-99 :39 LIPID PANEL (72188) Comments: PATIENT WAS FASTINGPERFORMED BY: [facility] [id number]; non-emergent till apt LDL/HDL Ratio 4.3 {ratio_units} [...] PANEL, COMPREHENSIVE Comments: PATIENT WAS FASTINGPERFORMED BY: Earth Class Mail70 [facility] [id number] (83657) ALT (SGPT) 28 [iU]/L (Normal) Range: 0-32 [...] (Normal) Range: 65-99 :58 Vitamin D Hydroxy (43243) Comments: PATIENT WAS FASTINGPERFORMED BY: [employer] Group6370 [employer] [place] [id number] Vitamin D, 25-Hydroxy 35.4 ng/mL (Normal) Range: 30.0-100.0 Comments: Vitamin D deficiency has been defined by the [place] ofMedicine and an Endocrine Society practice guideline as alevel of serum 25-OH vitamin D less than 20 ng/mL (1,2).The Endocrine Society went on to further define vitamin Dinsufficiency as a level between 21 and 29 ng/mL (2).1. IOM ([place] of Medicine). 2010. Dietary reference intakes for calcium and D. [place]: The National Academies Press.2. Mayur MF, Scar NC, Eb-Leandro CAMP, et al. Evaluation, treatment, and prevention of vitamin D deficiency: an Endocrine Society clinical practice guideline. JCEM. 2010; 96(7):1911-30. :58 CBC W/AUTO DIFF WBC Comments: PATIENT WAS FASTINGPERFORMED BY: [employer] Group6370 [facility]First[facility] [id number] Information: [id number] (94513) Immature Grans (Abs) 0.0 {x10E3/uL} (Normal) Range: [...] WBC 4.4 {x10E3/uL} (Normal) Range: 3.4-10.8 :58 HINQI-MJHUZEPOWWB-UWDBM (72735) Comments: PATIENT WAS FASTINGPERFORMED BY: [facility] [id number] AFP, Serum, Tumor Marker 1.8 ng/mL (Normal) Range: 0.0-8.3 Comments: Jona ECLIA methodology :58 LIPID PANEL (56015) Comments: PATIENT WAS FASTINGPERFORMED BY: [facility] [id number]; non-emergent till apt LDL/HDL Ratio 5.2 {ratio_units} [...] degree relatives should be collected. J Clin Avqgbyj9335;5:133-140 LDL Cholesterol Calc 197 mg/dL (Abnormal) Range: 0-99 VLDL Cholesterol Celso 31 mg/dL (Normal) Range: 5-40 HDL Cholesterol 38 mg/dL (Abnormal) Comments: According to ATP-III Guidelines, HDL-C >59 mg/dL is considered anegative risk factor for CHD. Triglycerides 156 mg/dL (Abnormal) Range: 0-149 Cholesterol, Total 266 mg/dL (Abnormal) Range: 100-199 :46 Protein Electro, Random Urine Comments: PERFORMED BY: [facility] [id number] Please note: SPRCS (Normal) Comments: Protein electrophoresis scan will follow via computer, mail, orcourier delivery. M-Darius, % Not Observed % (Normal) Gamma Globulin, U 12.5 % (Normal) Beta Globulin, U 31.8 % (Normal) Bpjym-2-Ycaxwggc, U 16.7 % (Normal) Cbcdm-2-Llpqghzk, U 8.1 % (Normal) Albumin, U 30.9 % (Normal) Protein,Total,Urine <4.0 mg/dL (Normal) Range: 0.0-15.0 Comments: Verified by repeat analysis :46 Protein Electro.,S Comments: PERFORMED BY: [facility] [id number] Please note: SPRCS (Normal) Comments: Protein electrophoresis scan will follow via computer, mail, orcourier delivery. A/G Ratio 1.4 (Normal) Range: 0.7-2.0 Globulin, Total 3.1 g/dL (Normal) Range: 2.0-4.5 M-Darius Not Observed g/dL (Normal) Gamma Globulin 0.9 g/dL (Normal) Range: 0.5-1.6 Beta Globulin 1.1 g/dL (Normal) Range: 0.6-1.3 Buhql-8-Wkeuvqpu 0.9 g/dL (Normal) Range: 0.4-1.2 Xypiz-3-Ckrjwcou 0.2 g/dL (Normal) Range: 0.1-0.4 Albumin 4.2 g/dL (Normal) Range: 3.2-5.6 :46 CBC W/AUTO DIFF WBC (49431) Comments: PERFORMED BY: LabCoVirtua BerlinNdhqir7165 [facility] [id number] Immature Grans (Abs) 0.0 {x10E3/uL} (Normal) Range: [...] :46 METABOLIC PANEL, COMPREHENSIVE Comments: PERFORMED BY: Scaffold70 [facility] [id number] (34409) ALT (SGPT) 31 [iU]/L (Normal) Range: 0-32 [...] 80 mg/dL (Normal) Range: 65-99 :46 PARATHORMONE (07542) Comments: PERFORMED BY: Foxtrot6370 [facility]At[facility] [id number] PTH, Intact 16 pg/mL (Normal) Range: 15-65 :46 Vitamin D Hydroxy (17261) Comments: PERFORMED BY: [facility] Wxdedn5878 [facility] [id number] Vitamin D, 25-Hydroxy 47.0 ng/mL (Normal) Range: 30.0-100.0 Comments: Vitamin D deficiency has been defined by the [place] [facility] Hospitalcine and an Endocrine Society practice guideline as alevel of serum 25-OH vitamin D less than 20 ng/mL (1,2).The Endocrine Society went on to further define vitamin Dinsufficiency as a level between 21 and 29 ng/mL (2).1. IOM ([place] of Medicine). 2010. Dietary reference intakes for calcium and D. [place]: The National Academies Press.2. Mayur MF, Scar LAWRENCE, Claribel CAMP, et al. Evaluation, treatment, and prevention of vitamin D deficiency: an Endocrine Society clinical practice guideline. JCEM. 2010; 96(7):1911-30. :46 TSH (02020) Comments: PERFORMED BY: [facility] Bdxwbn2635 [facility] [id number] TSH 4.390 {uIU/mL} (Normal) Range: 0.450-4.500 :46 LIPID PANEL (82071) Comments: PERFORMED BY: [facility] Rmvmpu0281 [facility] [id number]; non-emergent till apt LDL/HDL Ratio 4.0 {ratio_units} [...] COMPREHENSIVE Comments: PATIENT WAS FASTINGPERFORMED BY: JOJO [facility] Jnqxdg6133 [facility] [id number] (13917) ALT (SGPT) 23 [iU]/L (Normal) Range: 0-32 [...] DIFF WBC Comments: PATIENT WAS FASTINGPERFORMED BY: [facility]seyLovelace Medical CenterMsmhql7005 [facility] [id number] Information: [id number] (67878) Immature Grans (Abs) 0.0 {x10E3/uL} (Normal) Range: [...] {x10E3/uL} (Normal) Range: 3.4-10.8 30-Nov-20149:08 LIPID PANEL (34219) Comments: PATIENT WAS FASTINGPERFORMED BY: [facility] [id number]; non-emergent till apt LDL/HDL Ratio 4.7 {ratio_units} [...] Transferase) Comments: PATIENT WAS FASTINGPERFORMED BY: [facility]6370 [facility] [id number] (29533) GGT 11 [iU]/L (Normal) Range: 0-60 :08 SEMUK-OEOOFWVQZXX-BLNKA (42005) Comments: PATIENT WAS FASTINGPERFORMED BY: [address] [id number] AFP, Serum, Tumor Marker 1.6 ng/mL (Normal) Range: 0.0-8.3 Comments: Jona ECLIA methodology :08 PTT (Activated Partial Comments: PATIENT WAS FASTINGPERFORMED BY: [facility]6370 [facility] [id number] Thromboplastin Time) (75549) aPTT 27 {sec} (Normal) Range: 24-33 Comments: This test has not been validated for monitoring unfractionated heparintherapy. aPTT-based therapeutic ranges for unfractionated heparintherapy have not been established. For general guidelines onHeparin monitoring, refer to the [facility] Directory of Services. :08 PT (Prothrobim Time) (99373) Comments: PATIENT WAS FASTINGPERFORMED BY: [facility] [id number] Prothrombin Time 10.8 {sec} (Normal) Range: 9.1-12.0 INR 1.0 (Normal) Range: 0.8-1.2 Comments: Reference interval is for non-anticoagulated patients. . Suggested INR therapeutic range for Vitamin K anta gonist therapy: Standard Dose (moderate intensity therapeutic range): 2.0 - 3.0 Higher intensity therapeutic range 2.5 - 3.5 :08 Vitamin D Hydroxy (34178) Comments: PATIENT WAS FASTINGPERFORMED BY: [facility] [id number] Vitamin D, 25-Hydroxy 43.7 ng/mL (Normal) Range: 30.0-100.0 Comments: Vitamin D deficiency has been defined by the [place] ofMedicine and an Endocrine Society practice guideline as alevel of serum 25-OH vitamin D less than 20 ng/mL (1,2).The Endocrine Society went on to further define vitamin Dinsufficiency as a level between 21 and 29 ng/mL (2).1. IOM ([place] of Medicine). 2010. Dietary reference intakes for calcium and D. [place]: The National AcademRethink Books Press.2. Mayur MF, Scar NC, Claribel CAMP, et al. Evaluation, treatment, and prevention of vitamin D deficiency: an Endocrine Society clinical practice guideline. JCEM. 2010; 96(7):1911-30. 9-Sii-196742:17 CBC (AUTO) (11925) Comments: PATIENT WAS FASTINGPERFORMED BY: [facility] Fnidxh8891 [facility] [place] [id number] Platelets 159 {x10E3/uL} (Normal) Range: 150-379 RDW 13.2 % (Normal) Range: 12.3-15.4 MCHC 32.9 g/dL (Normal) Range: 31.5-35.7 MCH 29.5 pg (Normal) Range: 26.6-33.0 MCV 90 fL (Normal) Range: 79-97 Hematocrit 45.6 % (Normal) Range: 34.0-46.6 Hemoglobin 15.0 g/dL (Normal) Range: 11.1-15.9 RBC 5.09 {x10E6/uL} (Normal) Range: 3.77-5.28 WBC 4.2 {x10E3/uL} (Normal) Range: 3.4-10.8 4-Pak-364310:17 Vitamin D Hydroxy (09096) Comments: PATIENT WAS FASTINGPERFORMED BY: [facility] Djawhh1475 [facility] [place] [id number] Vitamin D, 25-Hydroxy 52.9 ng/mL (Normal) Range: 30.0-100.0 Comments: Vitamin D deficiency has been defined by the [place] ofGolf Pipelinecine and an Endocrine Society practice guideline as alevel of serum 25-OH vitamin D less than 20 ng/mL (1,2).The Endocrine Society went on to further define vitamin Dinsufficiency as a level between 21 and 29 ng/mL (2).1. IOM ([place] of Medicine). 2010. Dietary reference intakes for calcium and D. [place]: The National Academies Press.2. Mayur MF, Scra LAWRENCE, Claribel CAMP, et al. Evaluation, treatment, and prevention of vitamin D deficiency: an Endocrine Society clinical practice guideline. JCEM. 2010; 96(7):1911-30. 5-Osb-505145:17 METABOLIC PANEL, Comments: PATIENT WAS FASTINGPERFORMED BY: LabCoVirtua BerlinWhyuvp3783 [facility] [id number] Information: [id number] COMPREHENSIVE (47305) ALT (SGPT) 25 [iU]/L (Normal) Range: 0-32 [...] Glucose, Serum 82 mg/dL (Normal) Range: 65-99 0-Urj-202698:17 LIPID PANEL (78341) Comments: PATIENT WAS FASTINGPERFORMED BY: [employer] Apozy [facility] [id number] LDL/HDL Ratio 3.8 {ratio_units} Range: 0.0-3.2 (Abnormal) [...] Negative (Normal) Comments: PATIENT NOT FASTINGPERFORMED BY: Local Plant SourceVirtua BerlinEyjoae1304 [facility] [id number] 418:58 EIA 12-Hko-373391:58 Ova + Parasite Exam Comments: PATIENT NOT FASTINGPERFORMED BY: [employer] Apozy [facility] [id number] Result 1 NOCP (Normal) Comments: No ova, cysts, or parasites seen. Ova + Parasite Exam Final report (Normal) Comments: These results were obtained using wet preparation(s) and trichromestained smear. This test does not include testing for Cryptosporidiumparvum, Cyclospora, or Microsporidia. :58 Stool Culture Comments: PATIENT NOT FASTINGPERFORMED BY: [facility] [id number] Information: SRC:ST STOOL E coli Shiga Toxin EIA Negative (Normal) Result 1 NCI (Normal) Comments: No Campylobacter species isolated. Campylobacter Culture Final report (Normal) Result 1 NSS (Normal) Comments: No Salmonella or Shigella recovered. Salmonella/Shigella Screen Final report (Normal) :58 White Blood Cells (WBC), Comments: PATIENT NOT FASTINGPERFORMED BY: [facility] [id number] Stool Result 1 NWBC (Normal) Comments: No white blood cells seen. White Blood Cells (WBC), Final report (Normal) Comments: Reference Range: None Seen Stool :09 CRE CREAT 0.6 mg/dL (Normal) Range: 0.6-1.0 :36 CBC WITH MANUAL DIFF Comments: PATIENT WAS FASTINGPERFORMED BY: [facility] [id number] Information: [id number] (64268) Immature Grans (Abs) 0.0 {x10E3/uL} (Normal) Range: [...] PANEL, COMPREHENSIVE Comments: PATIENT WAS FASTINGPERFORMED BY: LabCoVirtua BerlinWcforj4544 [facility] [id number] (42563) ALT (SGPT) 25 [iU]/L (Normal) Range: 0-32 [...] mg/dL (Normal) Range: 65-99 :36 LIPID PANEL (11092) Comments: PATIENT WAS FASTINGPERFORMED BY: [employer] [facility]6370 [facility] [id number] LDL/HDL Ratio 3.4 {ratio_units} (Abnormal) Range: 0.0-3.2 LDL Cholesterol Calc 129 mg/dL (Abnormal) Range: 0-99 HDL Cholesterol 38 mg/dL (Abnormal) Comments: According to ATP-III Guidelines, HDL-C >59 mg/dL is considered anegative risk factor for CHD. VLDL Cholesterol Celso 22 mg/dL (Normal) Range: 5-40 Cholesterol, Total 189 mg/dL (Normal) Range: 100-199 Triglycerides 109 mg/dL (Normal) Range: 0-149 :36 Vitamin D Hydroxy (22040) Comments: PATIENT WAS FASTINGPERFORMED BY: Ogone Clbrgg8886 [facility] [id number] Vitamin D, 25-Hydroxy 55.9 ng/mL (Normal) Range: 30.0-100.0 Comments: Vitamin D deficiency has been defined by the [place] [facility] and an Endocrine Society practice guideline as alevel of serum 25-OH vitamin D less than 20 ng/mL (1,2).The Endocrine Society went on to further define vitamin Dinsufficiency as a level between 21 and 29 ng/mL (2).1. IOM ([place] of Medicine). 2010. Dietary reference intakes for calcium and D. [place]: The National Academies Press.2. Mayur MF, Scar LAWRENCE, Claribel CAMP, et al. Evaluation, treatment, and prevention of vitamin D deficiency: an Endocrine Society clinical practice guideline. JCEM. 2010; 96(7):1911-30. :36 [id number]-[id number] (25860) Comments: PATIENT WAS FASTINGPERFORMED BY: [facility] [id number] AFP, Serum, Tumor Marker 1.5 ng/mL (Normal) Range: 0.0-8.3 Comments: Jona ECLIA methodology :36 PTT (Activated Partial Comments: PATIENT WAS FASTINGPERFORMED BY: [facility] [id number] Thromboplastin Time) (86352) aPTT 27 {sec} (Normal) Range: 24-33 Comments: This test has not been validated for monitoring unfractionated heparintherapy. aPTT-based therapeutic ranges for unfractionated heparintherapy have not been established. For general guidelines onHeparin monitoring, refer to the [facility] Directory of Services. :36 PT (Prothrobim Time) (60402) Comments: PATIENT WAS FASTINGPERFORMED BY: [facility] [id number] Prothrombin Time 10.7 {sec} (Normal) Range: 9.1-12.0 INR 1.0 (Normal) Range: 0.8-1.2 Comments: Reference interval is for non-anticoagulated patients. . Suggested INR therapeutic range for Vitamin K anta gonist therapy: Standard Dose (moderate intensity therapeutic range): 2.0 - 3.0 Higher intensity therapeutic range 2.5 - 3.5 :50 CBC WITH MANUAL DIFF Comments: PATIENT NOT FASTINGPERFORMED BY: [place] 6842870 [facility] [id number] Information: [id number] (01618) Immature Grans (Abs) 0.0 {x10E3/uL} (Normal) Range: [...] {x10E3/uL} (Normal) Range: 3.4-10.8 :50 LIPID PANEL (63061) Comments: PATIENT NOT FASTINGPERFORMED BY: [facility] [id number] LDL/HDL Ratio 4.0 {ratio_units} (Abnormal) Range: 0.0-3.2 [...] PANEL, COMPREHENSIVE Comments: PATIENT NOT FASTINGPERFORMED BY: [employer] Apozy [facility] [id number] (77846) ALT (SGPT) 58 [iU]/L (Abnormal) Range: 0-32 [...] Glucose, Serum 87 mg/dL (Normal) Range: 65-99 28-Ptm-09813:50 Vitamin D Hydroxy (59856) Comments: PATIENT NOT FASTINGPERFORMED BY: LabCoVirtua BerlinXsduni4303 [facility] [id number] Vitamin D, 25-Hydroxy 46.4 ng/mL (Normal) Range: 30.0-100.0 Comments: Vitamin D deficiency has been defined by the [place] of[place]icine and an Endocrine Society practice guideline as alevel of serum 25-OH vitamin D less than 20 ng/mL (1,2).The Endocrine Society went on to further define vitamin Dinsufficiency as a level between 21 and 29 ng/mL (2).1. IOM ([place]). 2010. Dietary reference intakes for calcium and D. [place]: The National Academies Press.2. Mayur MF, Scar LAWRENCE, Claribel CAMP, et al. Evaluation, treatment, and prevention of vitamin D deficiency: an Endocrine Society clinical practice guideline. JCEM. 2010; 96(9):3681-30. :33 METABOLIC PANEL, COMPREHENSIVE Comments: PATIENT WAS FASTINGPERFORMED BY: [employer] Mail70 [employer] [place] [id number] (30596) ALT (SGPT) 50 [iU]/L (Abnormal) Range: 0-32 [...] Glucose, Serum 90 mg/dL (Normal) Range: 65-99 99-Dwz-707529:33 Vitamin D Hydroxy (25343) Comments: PATIENT WAS FASTINGPERFORMED BY: [employer] [facility]6370 [facility] [id number] Vitamin D, 25-Hydroxy 47.0 ng/mL (Normal) Range: 30.0-100.0 Comments: Vitamin D deficiency has been defined by the [place] of[place]icine and an Endocrine Society practice guideline as alevel of serum 25-OH vitamin D less than 20 ng/mL (1,2).The Endocrine Society went on to further define vitamin Dinsufficiency as a level between 21 and 29 ng/mL (2).1. IOM ([place]). 2010. Dietary reference intakes for calcium and D. [place]: The National AcademRethink Books Press.2. Mayur MF, Scar [place], Claribel CAMP, et al. Evaluation, treatment, and prevention of vitamin D deficiency: an Endocrine Society clinical practice guideline. JCEM. 2010; 96(7):1911-30. 77-Czg-117034:33 CBC WITH MANUAL DIFF Comments: PATIENT WAS FASTINGPERFORMED BY: [facility] Apuato2568 [facility] [id number] Information: [id number] (70378) Immature Grans (Abs) 0.0 {x10E3/uL} (Normal) Range: [...] WBC 3.9 {x10E3/uL} (Normal) Range: 3.4-10.8 :33 [id number]-YQOGE (09889) Comments: PATIENT WAS FASTINGPERFORMED BY: [address] [id number] AFP, Serum, Tumor Marker 2.1 ng/mL (Normal) Range: 0.0-8.3 Comments: Jona ECLIA methodology :33 PTT (Activated Partial Comments: PATIENT WAS FASTINGPERFORMED BY: [address] [id number] Thromboplastin Time) (24109) aPTT 26 {sec} (Normal) Range: 24-33 Comments: This test has not been validated for monitoring unfractionated heparintherapy. aPTT-based therapeutic ranges for unfractionated heparintherapy have not been established. For general guidelines onHeparin monitoring, refer to the [facility] Directory of Services. :33 PT (Prothrobim Time) (08479) Comments: PATIENT WAS FASTINGPERFORMED BY: [place] 6842870 [facility] [id number] INR 1.1 (Normal) Range: 0.8-1.2 Comments: Reference interval is for non-anticoagulated patients. . Suggested INR therapeutic range for Vitamin K anta gonist therapy: Standard Dose (moderate intensity therapeutic range): 2.0 - 3.0 Higher intensity therapeutic range 2.5 - 3.5 Prothrombin Time 11.0 {sec} (Normal) Range: 9.1-12.0 :33 LIPID PANEL (22519) Comments: PATIENT WAS FASTINGPERFORMED BY: [facility] Hwftdc2227 [facility] [id number] LDL/HDL Ratio 4.3 {ratio_units} (Abnormal) Range: 0.0-3.2 LDL Cholesterol Calc 170 mg/dL (Abnormal) Range: 0-99 VLDL Cholesterol Celso 26 mg/dL (Normal) Range: 5-40 HDL Cholesterol 40 mg/dL (Normal) Comments: According to ATP-III Guidelines, HDL-C >59 mg/dL is considered anegative risk factor for CHD. Triglycerides 129 mg/dL (Normal) Range: 0-149 Cholesterol, Total 236 mg/dL (Abnormal) Range: 100-199 91-Ykk-17828:00 SPINE LUMBAR (ROUTINE) Radiology Report See Note [...] Hamilton M.D.April 23, 2013 at 4:48:16 PM [id number] Signed PV/PV If you are the referring physician and would like to consult with theradiologis t who provided this interpretation, please contact Leann Flynn M.D. at [phone]. If this radiologist is unavailable, youwillbe directed to another radiologist to assist. If you are a patient w ith a question regarding this report, pleasecontactyour referring physician directly. Professional Interpretation Provided By: [email or web address], Phone , These documents contain legally protected and confidential healthinformation intended only for the use of the individual or entity namedabove. If you are not the intended recipient, you are hereby notifiedthatany disclosure, c opying, distribution, or other use of these documents isstrictly prohibited. If you have received this information in error,pleasenotify the sender immediately and arrange for the return or destructiono [facility]mer[facility] hospitale documents. Dictated on 04/23/13 1648 by Leann Cole MDTranscribed on 04/23/131649 by ITS IMPORTSign by Douglas BARNETT,Leann on 04/23/131650 Sign by: Douglas BARNETTLeann :43 C-REACTIVE PROTEIN (68215) Comments: PATIENT NOT FASTINGPERFORMED BY: [facility] Npgshz9095 [facility] [id number] C-Reactive Protein, Quant 0.7 mg/L (Normal) Range: 0.0-4.9 12-Srg-187652:43 SED RATE ERYTHROCYTE Comments: PATIENT NOT FASTINGPERFORMED BY: [facility] Tnahxo9183 [facility] [id number] Information: [id number] (51487) Sedimentation Rate-Westergren 2 mm/h (Normal) Range: 0-40 :50 METABOLIC PANEL, COMPREHENSIVE Comments: PATIENT WAS FASTINGPERFORMED BY: [facility] Jufodo0974 [facility] [id number] (09793) ALT (SGPT) 66 [iU]/L (Abnormal) Range: 0-32 [...] (Normal) Range: 65-99 :50 Vitamin D Hydroxy (31455) Comments: PATIENT WAS FASTINGPERFORMED BY: [employer] [facility]6370 [facility] [id number] Vitamin D, 25-Hydroxy 44.8 ng/mL (Normal) Range: 30.0-100.0 Comments: Vitamin D deficiency has been defined by the [place] of[place]icine and an Endocrine Society practice guideline as alevel of serum 25-OH vitamin D less than 20 ng/mL (1,2).The Endocrine Society went on to further define vitamin Dinsufficiency as a level between 21 and 29 ng/mL (2).1. IOM ([place]). 2010. Dietary reference intakes for calcium and D. [place]: The National Academies Press.2. Mayur MF, Scar [place], Claribel CAMP, et al. Evaluation, treatment, and prevention of vitamin D deficiency: an Endocrine Society clinical practice guideline. JCEM. 2010; 96(7):1911-30. :50 LIPID PANEL (61520) Comments: PATIENT WAS FASTINGPERFORMED BY: [facility] LabConuPSYS Dihyej8915 [facility] [id number] LDL/HDL Ratio 4.6 {ratio_units} (Abnormal) Range: 0.0-3.2 HDL Cholesterol 36 mg/dL (Abnormal) Comments: According to ATP-III Guidelines, HDL-C >59 mg/dL is considered anegative risk factor for CHD. LDL Cholesterol Calc 166 mg/dL (Abnormal) Range: 0-99 Triglycerides 148 mg/dL (Normal) Range: 0-149 VLDL Cholesterol Celso 30 mg/dL (Normal) Range: 5-40 Cholesterol, Total 232 mg/dL (Abnormal) Range: 100-199 5-Sep-06610:50 CBC WITH MANUAL DIFF Comments: PATIENT WAS FASTINGPERFORMED BY: JOJO LabCoVirtua BerlinXkodbt5299 [facility] [id number] Information: [id number] (82613) Immature Grans (Abs) 0.0 {x10E3/uL} (Normal) Range: [...] of these values in the reference population. 78-Ldv-09435:00 KNEE 4 OR MORE VIEWS Radiology Report [...] Clinton D.O.January 13, 2013 at 10:54:29 AM [id number] Signed DS/DS If you a re the referring physician and would like to consult with theradiologist who provided this interpretation, please contact Alli Clinton D.O. at [phone]. If this radiologist is unavailable, you will [...] METABOLIC PANEL, Comments: PATIENT WAS FASTINGPERFORMED BY: [facility]6370 [facility] [id number] Information: [id number] COMPREHENSIVE (08455) ALT (SGPT) 50 [iU]/L (Abnormal) Range: 0-32 [...] mg/dL (Normal) Range: 65-99 :30 LIPID PANEL (57798) Comments: PATIENT WAS FASTINGPERFORMED BY: [facility] [id number] LDL/HDL Ratio 3.7 {ratio_units} (Abnormal) Range: 0.0-3.2 LDL Cholesterol Calc 131 mg/dL (Abnormal) Range: 0-99 VLDL Cholesterol Celso 42 mg/dL (Abnormal) Range: 5-40 Cholesterol, Total 208 mg/dL (Abnormal) Range: 100-199 HDL Cholesterol 35 mg/dL (Abnormal) Comments: According to ATP-III Guidelines, HDL-C >59 mg/dL is considered anegative risk factor for CHD. Triglycerides 208 mg/dL (Abnormal) Range: 0-149 99-Fcs-091572:32 Protein Electro, Random Urine Comments: PATIENT NOT FASTINGPERFORMED BY: [employer] [facility] [id number] Please note: SPRCS (Normal) Comments: Protein electrophoresis scan will follow via computer, mail, orcourier delivery. Beta Globulin, U 30.6 % (Normal) Gamma Globulin, U 31.1 % (Normal) M-Darius, % Not Observed % (Normal) Zsfwm-8-Oiojuxkk, U 18.2 % (Normal) Nvcxv-9-Tdergeha, U 2.5 % (Normal) Albumin, U 17.6 % (Normal) Protein,Total,Urine 3.1 mg/dL (Normal) Range: 0.0-15.0 97-Vlm-068422:32 Protein Electro.,S Comments: PATIENT NOT FASTINGPERFORMED BY: Local Plant SourceLovelace Medical CenterOqilkj1263 [facility] [id number] Information: SRC: URINE A/G Ratio 1.7 (Normal) Range: 0.7-2.0 Please note: SPRCS (Normal) Comments: Protein electrophoresis scan will follow via computer, mail, orcourier delivery. Globulin, Total 2.6 g/dL (Normal) Range: 2.0-4.5 M-Darius Not Observed g/dL (Normal) Beta Globulin 1.0 g/dL (Normal) Range: 0.6-1.3 Gamma Globulin 0.7 g/dL (Normal) Range: 0.5-1.6 Yqeoe-8-Imgcehwn 0.1 g/dL (Normal) Range: 0.1-0.4 Jscve-8-Bvonkdlz 0.7 g/dL (Normal) Range: 0.4-1.2 Albumin 4.5 g/dL (Normal) Range: 3.2-5.6 Protein, Total, Serum 7.1 g/dL (Normal) Range: 6.0-8.5 :32 LYEXL-EFRUWKOKLWG-GTDXC (57711) Comments: PATIENT NOT FASTINGPERFORMED BY: [employer] Mail70 [facility] [id number] AFP, Serum, Tumor Marker 1.5 ng/mL (Normal) Range: 0.0-8.3 Comments: Jona ECLIA methodology 32-Sqb-117655:32 LIPID PANEL (68185) Comments: PATIENT NOT FASTINGPERFORMED BY: [employer] Mail70 [facility] [id number] LDL Cholesterol Calc 132 mg/dL (Abnormal) Range: 0-99 LDL/HDL Ratio 3.5 {ratio_units} (Abnormal) Range: 0.0-3.2 HDL Cholesterol 38 mg/dL (Abnormal) Comments: According to ATP-III Guidelines, HDL-C >59 mg/dL is considered anegative risk factor for CHD. Triglycerides 160 mg/dL (Abnormal) Range: 0-149 VLDL Cholesterol Celso 32 mg/dL (Normal) Range: 5-40 Cholesterol, Total 202 mg/dL (Abnormal) Range: 100-199 97-Nco-775589:32 PARATHORMONE (39507) Comments: PATIENT NOT FASTINGPERFORMED BY: [employer] Mail70 [facility]First[facility] [id number] PTH, Intact 16 pg/mL (Normal) Range: 15-65 08-Elb-080830:32 PHOSPHORUS (00018) Comments: PATIENT NOT FASTINGPERFORMED BY: [place] 6842870 [facility] [id number] Phosphorus, Serum 3.7 mg/dL (Normal) Range: 2.5-4.5 85-Wcj-042524:32 PTT (Activated Partial Comments: PATIENT NOT FASTINGPERFORMED BY: [address] [id number] Thromboplastin Time) (38434) aPTT 25 {sec} (Normal) Range: 24-33 Comments: This test has not been validated for monitoring unfractionated heparintherapy. aPTT-based therapeutic ranges for unfractionated heparintherapy have not been established. For general guidelines onHeparin monitoring, refer to the [facility] Directory of Services. 12-Qod-847329:32 PT (Prothrobim Time) (23743) Comments: PATIENT NOT FASTINGPERFORMED BY: [place] 6842870 [facility] [id number] INR 1.0 (Normal) Range: 0.8-1.2 Comments: Reference interval is for non-anticoagulated patients. . Suggested INR therapeutic range for Vitamin K anta gonist therapy: Standard Dose (moderate intensity therapeutic range): 2.0 - 3.0 Higher intensity therapeutic range 2.5 - 3.5 Prothrombin Time 10.9 {sec} (Normal) Range: 9.1-12.0 51-Xxo-330723:01 Calcium, 24Hr Urine Comments: PERFORMED BY: [facility] [id number] Information: 08/26/@830AM 08/27@830AM Calcium, Urine 24hr 208.0 {mg/24_hr} (Normal) Range: 100.0-300.0 Calcium, Urine 8.0 mg/dL (Normal) 40-Lcb-116788:35 BILAT SCRN DIGITAL & CAD Radiology Report [...] Bryan M.D.July 18, 2012 at 1:56:05 PM [id number] Signed GP/GP If you are the referring physician and would like to consult with theradiologist who provided this interpretation, please contact Nusrat Cain at [phone]. If this radiologist is unavailable, youwill be directed to another radiologist to assist. If you are a patient with a question regarding this report, pleasecontactyour referring physician directly. Professional Interpretation Provided By: [email or web address], Phone , Thes e documents contain legally [...] destructionofthese documents. Dictated on 07/18/12 1235 by Clare BARNETT,Darionscribed on 07/18/12 1402 by ITS IMPORTSign by Constantino Bryan MD on 07/18/12 1403 Sign by: Clare BARNETTConstantino 07-Qlb-405762:35 DEXA BONE DENSITY STUDY (HP) Radiology Report [...] Bryan M.D.July 18, 2012 at 1:48:07 PM [id number] Signed GP/GP If you are the referring physician a nd would like to consult with theradiologist who provided this interpretation, please contact Nusrat Cain at [phone]. If this radiologist is unavailable, youwill be directed to another radiologist to assist. If you are a patient with a question regarding this report, pleasecontactyour referring physician directly. Professional Interpretation Provided By: [email or web address], Phone , These documents contain legally protected [...] 1 353 Sign by: Constantino Bryan MD 89-Gzj-16131:38 TSH (14561) Comments: PATIENT WAS FASTINGPERFORMED BY: [facility] Bgtsfh7072 [facility] [id number] TSH 2.950 {uIU/mL} (Normal) Range: 0.450-4.500 39-Exi-73494:38 CBC WITH MANUAL DIFF Comments: PATIENT WAS FASTINGPERFORMED BY: [facility] Pefezc6784 [facility] [id number] Information: [id number] (83664) Immature Grans (Abs) 0.0 {x10E3/uL} (Normal) Range: [...] 3.77-5.28 WBC 4.2 {x10E3/uL} (Normal) Range: 4.0-10.5 52-Vkr-34438:38 METABOLIC PANEL, COMPREHENSIVE Comments: PATIENT WAS FASTINGPERFORMED BY: LabCoVirtua BerlinAokzjv7334 [facility] [id number] (54236) ALT (SGPT) 69 [iU]/L (Abnormal) Range: 0-40 [...] mg/dL (Normal) Range: 65-99 :38 LIPID PANEL (39829) Comments: PATIENT WAS FASTINGPERFORMED BY: [facility] LabCoVirtua BerlinAsltga6315 [facility] [id number] LDL/HDL Ratio 4.6 {ratio_units} (Abnormal) Range: 0.0-3.2 LDL Cholesterol Calc 175 mg/dL (Abnormal) Range: 0-99 HDL Cholesterol 38 mg/dL (Abnormal) Comments: According to ATP-III Guidelines, HDL-C >59 mg/dL is considered anegative risk factor for CHD. VLDL Cholesterol Celso 23 mg/dL (Normal) Range: 5-40 Triglycerides 114 mg/dL (Normal) Range: 0-149 Cholesterol, Total 236 mg/dL (Abnormal) Range: 100-199 :38 Vitamin D Hydroxy (63175) Comments: PATIENT WAS FASTINGPERFORMED BY: CB LabBe[facility]umont Hospital6370 Carmine Renteriachuy [place] [id number] Vitamin D, 25-Hydroxy 36.3 ng/mL (Normal) Range: 30.0-100.0 Comments: Vitamin D deficiency has been defined by the [place] of[place]icine and an Endocrine Society practice guideline as alevel of serum 25-OH vitamin D less than 20 ng/mL (1,2).The Endocrine Society went on to further define vitamin Dinsufficiency as a level between 21 and 29 ng/mL (2).1. IOM ([place] of Medicine). 2010. Dietary reference intakes for calcium and D. [place]: The National AcademRethink Books Press.2. Mayur MF, Scar LAWRENCE, Claribel CAMP, [...] 07/06/11 103 Sign by: Constantino Bryan MD :57 CBC WITH MANUAL DIFF Comments: PATIENT WAS FASTINGPERFORMED BY: LabCoVirtua BerlinWyroim6992 [facility] [id number] Information: [id number] (96971) Immature Grans (Abs) 0.0 {x10E3/uL} (Normal) Range: [...] PANEL, COMPREHENSIVE Comments: PATIENT WAS FASTINGPERFORMED BY: [facility]6370 [facility] [id number] (84296) ALT (SGPT) 55 [iU]/L (Abnormal) Range: 0-40 [...] (Normal) Range: 65-99 04-Sep-20118:57 Vitamin D Hydroxy (26262) Comments: PATIENT WAS FASTINGPERFORMED BY: [employer] [facility]6370 [facility] [id number] Vitamin D, 25-Hydroxy 49.4 ng/mL (Normal) Range: 30.0-100.0 Comments: Vitamin D deficiency has been defined by the [place] of[place]icine and an Endocrine Society practice guideline as alevel of serum 25-OH vitamin D less than 20 ng/mL (1,2).The Endocrine Society went on to further define vitamin Dinsufficiency as a level between 21 and 29 ng/mL (2).1. IOM ([place]). 2011. Dietary reference intakes for calcium and D. [place]: The National Academies Press.2. Mayur MF, Scar LAWRENCE, Claribel CAMP, et al. Evaluation, treatment, and prevention of vitamin D deficiency: an Endocrine Society clinical practice guideline. JCEM. 2010; 96(7):1911-30. :57 LIPID PANEL (40763) Comments: PATIENT WAS FASTINGPERFORMED BY: [employer] Mail70 [facility] CenterThermogenicsAtrium Health [facility] [id number] LDL/HDL Ratio 3.0 {ratio_units} (Normal) Range: 0.0-3.2 [...] FUNCTION PANEL Comments: PATIENT WAS FASTINGPERFORMED BY: [employer] Mail70 Lou [facility] [id number] Information: [id number] (46414) ALT (SGPT) 57 [iU]/L (Abnormal) Range: 0-40 Alkaline Phosphatase, S 73 [iU]/L (Normal) Range: 25-165 AST (SGOT) 37 [iU]/L (Normal) Range: 0-40 Bilirubin, Direct 0.12 mg/dL (Normal) Range: 0.00-0.40 Albumin, Serum 4.7 g/dL (Normal) Range: 3.5-4.8 Bilirubin, Total 0.6 mg/dL (Normal) Range: 0.0-1.2 Protein, Total, Serum 7.2 g/dL (Normal) Range: 6.0-8.5 :38 LIPID PANEL (84247) Comments: PATIENT WAS FASTINGPERFORMED BY: [employer] Ynxutb6174 [facility] [id number] LDL/HDL Ratio 3.4 {ratio_units} (Abnormal) Range: 0.0-3.2 LDL Cholesterol Calc 139 mg/dL (Abnormal) Range: 0-99 VLDL Cholesterol Celso 20 mg/dL (Normal) Range: 5-40 HDL Cholesterol 41 mg/dL (Normal) Comments: According to ATP-III Guidelines, HDL-C >59 mg/dL is considered anegative risk factor for CHD. Triglycerides 99 mg/dL (Normal) Range: 0-149 Cholesterol, Total 200 mg/dL (Abnormal) Range: 100-199 :33 Vitamin D Hydroxy (72408) Comments: PATIENT NOT FASTINGPERFORMED BY: Foxtrot6370 [facility] [id number] Vitamin D, 25-Hydroxy 42.6 ng/mL (Normal) Range: 32.0-100.0 Comments: Effective June 19, 2011 Vitamin D, 25-Hydroxy reference intervals will be changing to 30-100. .Recent studies consider the lower li vince of 32.0 ng/mL to be athreshold for optimal health.Kamari ALLEN. J Nutr. 2004;135(2):317-22. :33 CBC WITH MANUAL DIFF Comments: PATIENT NOT FASTINGPERFORMED BY: [facility] CresseyVirtua BerlinHrspys7654 [facility] [id number] Information: [id number] , NO DRAW FEE (21944) Immature Grans (Abs) 0.0 {x10E3/uL} (Normal) Range: [...] 3.80-5.10 WBC 4.6 {x10E3/uL} (Normal) Range: 4.0-10.5 9-Azw-415390:10 Metabolic Panel, Basic (99089) Comments: PATIENT NOT FASTINGPERFORMED BY: LabCoVirtua BerlinPfvvlg0986 [facility] [id number] Calcium, Serum 9.6 mg/dL (Normal) Range: 8.6-10.2 [...] Glucose, Serum 86 mg/dL (Normal) Range: 65-99 2-Zup-693240:10 CBC with manual diff Comments: PATIENT NOT FASTINGPERFORMED BY: LabCoVirtua BerlinTlciym1543 [facility] [id number] Information: [id number] (79331) Baso (Absolute) 0.0 {x10E3/uL} (Normal) Range: 0.0-0.2 [...] {x10E3/uL} (Abnormal) Range: 4.0-10.5 :07 LIPID PANEL (43933) Comments: PATIENT WAS FASTINGPERFORMED BY: [facility] Hvhlcs5157 [facility] [id number] LDL/HDL Ratio 6.9 {ratio_units} (Abnormal) Range: 0.0-3.2 LDL Cholesterol Calc 254 mg/dL (Abnormal) Range: 0-99 VLDL Cholesterol Celso 29 mg/dL (Normal) Range: 5-40 HDL Cholesterol 37 mg/dL (Abnormal) Comments: According to ATP-III Guidelines, HDL-C >59 mg/dL is considered anegative risk factor for CHD. Cholesterol, Total 320 mg/dL (Abnormal) Range: 100-199 Triglycerides 144 mg/dL (Normal) Range: 0-149 :07 Vitamin D Hydroxy (89570) Comments: PATIENT WAS FASTINGPERFORMED BY: [facility] Nrnvon2856 [facility] [id number] Vitamin D, 25-Hydroxy 27.8 ng/mL (Abnormal) Range: 32.0-100.0 Comments: Recent studies consider the lower limit of 32.0 ng/mL to be athreshold for optimal health.Kamari ALLEN. J Nutr. 2004;135(2):317-22. :07 METABOLIC PANEL, COMPREHENSIVE Comments: PATIENT WAS FASTINGPERFORMED BY: [facility] Chnacl1192 [facility] [id number] (06639) ALT (SGPT) 61 [iU]/L (Abnormal) Range: 0-40 [...] Glucose, Serum 77 mg/dL (Normal) Range: 65-99 56-Rpb-74089:07 CBC WITH MANUAL DIFF Comments: PATIENT WAS FASTINGPERFORMED BY: [facility]6370 [facility] [id number] Information: [id number] (34805) Immature Grans (Abs) 0.0 {x10E3/uL} (Normal) Range: [...] (Normal) Range: 4.0-10.5 :57 Vitamin D Hydroxy (37599) Comments: PATIENT WAS FASTINGPERFORMED BY: [employer]6370 [facility] [id number] Vitamin D, 25-Hydroxy 62.8 ng/mL (Normal) Range: 32.0-100.0 Comments: Recent studies consider the lower limit of 32.0 ng/mL to be athreshold for optimal health.Kamari ALLEN. J Nutr. 2004;135(2):317-22. :57 LIPID PANEL (61392) Comments: PATIENT WAS FASTINGPERFORMED BY: [facility] Hgjvii5678 Viroclinics Biosciencesin [place] [id number] HDL Cholesterol 39 mg/dL (Abnormal) Comments: According [...] COMPREHENSIVE Comments: PATIENT WAS FASTINGPERFORMED BY: [facility] Cikhgq6076 [facility] [id number] ([id number]) Alkaline Phosphatase, S 74 [iU]/L (Normal) Range: [...] DIFF Comments: PATIENT WAS FASTINGPERFORMED BY: JOJO LabCoVirtua BerlinLawvwv1390 [facility] [id number] Information: [id number] (30730) Immature Grans (Abs) 0.0 {x10E3/uL} (Normal) Range: [...] Report See Note (Normal) Comments: Exam Number: [id number] AMMOGRAPHY - BILATERAL SCREENING INDICATION:Routine annual screening [...] of attaching a ResultCode to this exam.ADDENDUM: [id number] HPBI/MDS Reported By: LEANN CHAUDHARI M.D. :49 Vitamin D Hydroxy (61967) Comments: PATIENT NOT FASTINGPERFORMED BY: [employer] Mail70 [facility]At[facility] [id number] Vitamin D, 25-Hydroxy 48.8 ng/mL (Normal) Range: 32.0-100.0 Comments: Recent studies consider the lower limit of 32.0 ng/mL to be athreshold for optimal health.Kamari ALLEN. J Nutr. 2004;135(2):317-22. :49 LIPID PANEL (98424) Comments: PATIENT NOT FASTINGPERFORMED BY: [employer] Group6370 [facility] BiosciencesAt[facility] [id number] LDL Cholesterol Calc 136 mg/dL (Abnormal) Range: [...] PANEL, COMPREHENSIVE Comments: PATIENT NOT FASTINGPERFORMED BY: [employer] Group6370 [facility]At[facility] [id number] (72653) Alkaline Phosphatase, S 75 [iU]/L (Normal) Range: [...] MANUAL DIFF Comments: PATIENT NOT FASTINGPERFORMED BY: CB [facility] Uelsgr0361 [facility] [id number] Information: [id number] (46373) Immature Grans (Abs) 0.0 {x10E3/uL} (Normal) Range: [...] 3.80-5.10 WBC 3.7 {x10E3/uL} (Abnormal) Range: 4.0-10.5 56-Epy-09625:17 DEXA BONE DENSITY STUDY (HP) Radiology Report See Note (Normal) Comments: Exam Number: [id number] CLINICAL:This is a 69-year-old female patient with history osteopenia. EXAMINATION:DUAL ENERGY X-RAY ABSORPTIOMETRY / DEXA. TECHNIQUE:Bone Density Measurements (BMD) of lumbar spi ne and bilateral hipswere obtained using a Snabboteket scanner.. COMPARISON:Comparison is made with prior study [...] Osteoporosis Foundation http://www.nof.org Reported By: CONSTANTINO BRYAN 42-Lku-31032:23 CBC WITH MANUAL DIFF Comments: PATIENT WAS FASTINGPERFORMED BY: [facility]6370 [facility] [id number] Information: [id number] (22784) Immature Grans (Abs) 0.0 {x10E3/uL} (Normal) Range: [...] (Abnormal) Range: 4.0-10.5 :23 Vitamin D Hydroxy (36873) Comments: PATIENT WAS FASTINGPERFORMED BY: [facility] Drtpnj2549 [facility] [id number] Vitamin D, 25-Hydroxy 28.0 ng/mL (Abnormal) Range: 32.0-100.0 Comments: Recent studies consider the lower limit of 32.0 ng/mL to be athreshold for optimal health.Kamari ALLEN. J Nutr. 2004;135(2):317-22. :23 METABOLIC PANEL, COMPREHENSIVE Comments: PATIENT WAS FASTINGPERFORMED BY: LabCoVirtua BerlinKvqwzx6256 [facility] [id number] (47945) Alkaline Phosphatase, S 80 [iU]/L (Normal) Range: [...] Glucose, Serum 92 mg/dL (Normal) Range: 65-99 65-Mfe-85447:23 LIPID PANEL (61700) Comments: PATIENT WAS FASTINGPERFORMED BY: LabCoVirtua BerlinQbzdoo0414 [facility] [id number] HDL Cholesterol 39 mg/dL (Abnormal) Comments: According [...] COMPREHENSIVE Comments: PATIENT WAS FASTINGPERFORMED BY: LabCo Zmkgtb4773 [facility] [id number] (28933) Alkaline Phosphatase, S 83 [iU]/L (Normal) Range: [...] MANUAL DIFF Comments: PATIENT WAS FASTINGPERFORMED BY: LabCoVirtua BerlinEriyng6647 [facility] [id number] Information: [id number] (48136) Baso (Absolute) 0.0 {x10E3/uL} (Normal) Range: 0.0-0.2 [...] FUNCTION PANEL Comments: PATIENT WAS FASTINGPERFORMED BY: ParasitXCoVirtua BerlinRhmdqt9602 [facility] [id number] (27069) Bilirubin, Direct 0.11 mg/dL (Normal) Range: 0.00-0.40 :34 LIPID PANEL (66257) Comments: PATIENT WAS FASTINGPERFORMED BY: [facility]seyVirtua BerlinFqmfud6453 [facility] [id number] HDL Cholesterol 39 mg/dL (Abnormal) Comments: According to ATP-III Guidelines, HDL-C >59 mg/dL is considered anegative risk factor for CHD. LDL Cholesterol Calc 139 mg/dL (Abnormal) Range: 0-99 LDL/HDL Ratio 3.6 {ratio_units} (Abnormal) Range: 0.0-3.2 Triglycerides 101 mg/dL (Normal) Range: 0-149 VLDL Cholesterol Celso 20 mg/dL (Normal) Range: 5-40 Cholesterol, Total 198 mg/dL (Normal) Range: 100-199 3-Aes-216510:13 CBC With Differential/Platelet Comments: PATIENT WAS FASTINGPERFORMED BY: [facility] Vvgikm7738 [facility] [id number] Baso (Absolute) 0.0 {x10E3/uL} (Normal) Range: 0.0-0.2 [...] 11.7-15.0 WBC 3.3 {x10E3/uL} (Abnormal) Range: 4.0-10.5 2-Ulx-952566:13 Comp. Metabolic Panel (14) Comments: PATIENT WAS FASTINGPERFORMED BY: LabCoVirtua BerlinSfjomy3750 [facility] [id number] A/G Ratio 2.0 (Normal) Range: 1.1-2.5 Albumin, [...] With LDL/HDL Comments: PATIENT WAS FASTINGPERFORMED BY: [facility]Co Mqammw1269 [facility] [id number] Ratio Cholesterol, Total 210 mg/dL (Abnormal) Range: [...] ng/mL (Normal) Comments: PATIENT WAS FASTINGPERFORMED BY: [facility] Cwjlzg7656 [facility] [id number] :13 Range: 32.0-100.0 Comments: Recent studies consider the lower limit of 32.0 ng/mL to be athreshold for optimal health.Kamari ALLEN. J Nutr. 2004;135(2):317-22. :42 BILAT SCRN DIGITAL & CAD Radiology Report See Note (Normal) Comments: Exam Number: [id number] MAMMOGRAM, BILATERAL SCREENING DIGITAL AND CAD HISTORYRoutine [...] werealso examined with computer-aided detection softw are ([employer], [employer]Zc[employer]mv, Inc.). Reported By: LEANN CHAUDHARI M.D. 62-Iza-253889:25 SPLEEN (HP) Radiology Report See Note (Normal) Comments: Exam Number: [id number] CLINICAL:Elevated liver enzymes and polycythemia. LIMITED ABDOMINAL [...] quadrant ultrasound. Reported By: ELSIE MCNEAL M.D. 10-Usc-006499:24 LIVER (HP) Radiology Report See Note (Normal) Comments: Exam Number: [id number] CLINICAL:Elevated liver enzymes and polycythemia. LIMITED ABDOMINAL [...] of splenomegaly. Reported By: ELSIE MCNEAL M.D. 93-Yhm-02334:56 CBC With Differential/Platelet Comments: PERFORMED BY: [facility] YMA1418 [facility] [id number] Baso (Absolute) 0.0 {x10E3/uL} (Normal) Range: 0.0-0.2 [...] 11.7-15.0 WBC 3.0 {x10E3/uL} (Abnormal) Range: 4.0-10.5 00-Ybw-61344:56 Comp. Metabolic Panel (14) Comments: PERFORMED BY: WANDA [facility] KRN8008 [facility] [id number] A/G Ratio 2.0 (Normal) Range: 1.1-2.5 Albumin, [...] :56 Erythropoietin (EPO), Serum Comments: PERFORMED BY: [facility] [id number] [id number] Erythropoietin 13.2 m[iU]/mL (Normal) Range: 4.2-27.8 :56 Hepatic Function Panel (7) Comments: PERFORMED BY: [facility] [id number] [id number] Bilirubin, Direct 0.15 mg/dL (Normal) Range: 0.00-0.40 :56 JAK2 V617F Mutation Detection Comments: PERFORMED BY: [employer] [facility] [id number] JAK2 V617F mutation JAK2N (Normal) Comments: Result: NEGATIVE for the JAK2 V617F mutation. .Interpretation: The G to T nucleotide change encoding the M411Rpwqqodzx wa s not detect detection ed. This [...] all patientswith these disorders. .Tammie Hess, PhD, [facility] Director, Molecular Genetics [facility] [place], [place] .JAK2 is a cytoplasmic tyrosine kinase with a jackson role in signaltra nsduction from multiple hematopoietic growth factor receptors. Apoint mutation within exon 14 of the JAK2 gene (W1880V) encoding avaline to phenylalanine substitution at position 617 of the CVX7jjnmejj (V617F) has been identified in most patients [...] for Disease Classification and Diagnosis. [facility] Sdjm0481;80(7):947-958. . LDH 221 [iU]/L Comments: PERFORMED BY: [facility] WLC3275 [facility] [id number] :56 (Normal) Range: 100-250 :56 Lipid Panel With LDL/HDL Comments: PERFORMED BY: [employer] GOS6776 [facility] [id number] Ratio Cholesterol, Total 203 mg/dL (Abnormal) Range: [...] 22.3 ng/mL Comments: PERFORMED BY: MUÑOZ [facility] QWR6098 [facility] [id number] :56 (Abnormal) Range: 32.0-100.0 Comments: Recent studies consider the lower limit of 32.0 ng/mL to be athreshold for optimal health.Kamari ALLEN. J Nutr. 2004;135(2):317-22. 9-Ytb-851531:06 CBCD,SMEAR DIFF CELLS COUNTED 100 (Normal) EOS [...] 47-70 WBC 3.7 K/mm3 (Abnormal) Range: 4.4-11.0 3-Zjy-015081:06 LDH 205 U/L (Abnormal) Range: 100-190 3-Kzp-714763:06 LIVER ALB 4.2 g/dL (Normal) Range: 3.4-5.0 ALK P 81 U/L (Normal) Range: 50-136 ALT 55 U/L (Normal) Range: 30-65 AST 33 U/L (Normal) Range: 15-37 D BILI 0.04 mg/dL (Normal) Range: 0.00-0.30 T BILI 0.34 mg/dL (Normal) Range: 0.00-1.00 T PROT 7.4 g/dL (Normal) Range: 6.4-8.2 :00 ABG Comments: IS THE BLOOD GAS TO [...] 7.35-7.45 sO2 96.0 % (Normal) Range: 95-99 22-Kpv-80046:48 CBC WITH MANUAL DIFF (61734) Comments: PATIENT WAS FASTINGClinical Information: ADD DRAW FEE [id number] PERFORMED BY: [facility] Tgxbuj5264 [facility] [id number] Baso (Absolute) 0.0 {x10E3/uL} (Normal) Range: 0.0-0.2 [...] FUNCTION PANEL Comments: PATIENT WAS FASTINGPERFORMED BY: [employer] [facility]6370 [facility] [id number] (34653) Albumin, Serum 4.7 g/dL (Normal) Range: 3.6-4.8 Alkaline Phosphatase, S 85 [iU]/L (Normal) Range: 25-165 ALT (SGPT) 45 [iU]/L (Abnormal) Range: 0-40 AST (SGOT) 32 [iU]/L (Normal) Range: 0-40 Bilirubin, Direct 0.13 mg/dL (Normal) Range: 0.00-0.40 Bilirubin, Total 0.5 mg/dL (Normal) Range: 0.1-1.2 Protein, Total, Serum 7.1 g/dL (Normal) Range: 6.0-8.5 :48 LIPID PANEL (46652) Comments: PATIENT WAS FASTINGPERFORMED BY: Ogone Frtqhs7789 [facility] [id number] Cholesterol, Total 194 mg/dL (Normal) Range: 100-199 [...] Random Urine Comments: PATIENT WAS FASTINGPERFORMED BY: [employer]6370 [facility] [id number] Albumin, U 27.1 % (Normal) Zxkzh-5-Plxaemem, U 3.7 % (Normal) Wilsk-6-Vdzdpotn, U 25.2 % (Normal) Beta Globulin, U 28.3 % (Normal) Gamma Globulin, U 15.7 % (Normal) M-Darius, % Not Observed % (Normal) Please note: SPRCS (Normal) Comments: Protein electrophoresis scan will follow via mail or bowling pin setters installer. Protein,Total,Urine 7.8 mg/dL (Normal) Range: 0.0-15.0 :21 Protein Electro.,S Comments: PATIENT WAS FASTINGPERFORMED BY: [employer]6370 [facility] [id number] A/G Ratio 1.3 (Normal) Range: 0.7-2.0 Albumin 4.0 g/dL (Normal) Range: 3.2-5.6 Iubbx-9-Toxufhet 0.2 g/dL (Normal) Range: 0.1-0.4 Yxhyv-0-Evlqsndx 0.8 g/dL (Normal) Range: 0.4-1.2 Beta Globulin 1.1 g/dL (Normal) Range: 0.6-1.3 Gamma Globulin 1.0 g/dL (Normal) Range: 0.5-1.6 Globulin, Total 3.1 g/dL (Normal) Range: 2.0-4.5 M-Darius Not Observed g/dL (Normal) Please note: SPRCS (Normal) Comments: Protein electrophoresis scan will follow via mail or bowling pin setters installer. :21 VITAMIN B-12 (CYANOCOBALAMIN) Comments: PATIENT WAS FASTINGPERFORMED BY: Local Plant SourceVirtua BerlinMbqaqq1221 [facility] [id number] ([id number]) Vitamin B12 416 pg/mL (Normal) Range: 211-911 :21 CBC WITH MANUAL DIFF (36200) Comments: PATIENT WAS FASTINGPERFORMED BY: LabCoVirtua BerlinLwvlzd3781 [facility] [id number] Baso (Absolute) 0.0 {x10E3/uL} (Normal) Range: 0.0-0.2 [...] 11.7-15.0 WBC 3.2 {x10E3/uL} (Abnormal) Range: 4.0-10.5 44-Jkf-40315:21 METABOLIC PANEL, COMPREHENSIVE Comments: PATIENT WAS FASTINGPERFORMED BY: LabCoVirtua BerlinMxjpgn7975 [facility] [id number] (93043) A/G Ratio 1.8 (Normal) Range: 1.1-2.5 Albumin, [...] Serum 88 mg/dL (Normal) Range: 65-99 If -Mongolian >60 mL/min/1.73 Range: 60-128 (Normal) Comments: Note: [...] Sodium, Serum 143 mmol/L (Normal) Range: 135-145 19-Gbf-12725:21 HEPATIC FUNCTION PANEL Comments: PATIENT WAS FASTINGPERFORMED BY: ParasitXCo Zmbyoj2832 [facility] [id number] (42808) Bilirubin, Direct 0.14 mg/dL (Normal) Range: 0.00-0.40 87-Wew-65117:21 LIPID PANEL (21896) Comments: PATIENT WAS FASTINGPERFORMED BY: [facility] Wjhmhg7402 [facility] [id number] Cholesterol, Total 196 mg/dL (Normal) Range: 100-199 [...] Report See Note (Normal) Comments: Exam Number: [id number] MAMMOGRAM, BILATERAL SCREENING DIGITAL AND CAD HISTORYRoutine screening. Full field digital images were obtained in mediolateral oblique andcraniocaudal projections. CAD images w ere reviewed. The current study is compared to the examinations of April,,and October,, from [facility] in [place], [place]. There is moderately dense fibroglandular parenchyma [...] mammograms werealso examined with computer-aided detection software ([employer], langtaojin, Inc.). Reported By: LEANN CHAUDHARI M.D. :40 DEXA BONE DENSITY STUDY (HP) Radiology Report See Note (Normal) Comments: Exam Number: [id number] BONE DENSITOMETRY HISTORYPostmenopausal. TECHNIQUE Bone densitometry of the lumbar spine and left hip was performed. Thebest criteria for evaluation of osteoporosis is the T- value, whichrepresents the comparison of the patient's bone mass to an expectedpeak bone mass. For most patients, the mean T-value of L1 through L4is used to evaluate the lumbar spine. Based on the [facility] WorldHealth Organization classifications, the hip is evaluated [...] left hip. Reported By: LEANN CHAUDHARI M.D. 17-Qkq-230125:24 CHEST, PA AND LATERAL Radiology Report See Note (Normal) Comments: Exam Number: [id number] CERVICAL SPINE 5 VIEWS - AP, LATERAL, [...] Report See Note (Normal) Comments: Exam Number: [id number] LUMBAR SPINE 5 VIEWS - AP, LATERAL, [...] Report See Note (Normal) Comments: Exam Number: [id number] CERVICAL SPINE 5 VIEWS - AP, LATERAL, [...] Report See Note (Normal) Comments: Exam Number: [id number] MYOCARDIAL PERFUSION SCAN 12 millicuries of Tc99m sestamibi was injected at rest. The patientthen exercised according to the Ayo protocol for a total duration of7 m [facility] 105% of the maximum predicted heart rate at a workload of 8.5 METs. At peak exercise, 34.7 millicuries of Ar61sivttjjppa was injected. Stress images were then obtained. [...] ejection fraction. Reported By: BARI MOSLEY M.D. 92-Yxt-260585:33 TSH (56225) Comments: PATIENT WAS FASTINGPERFORMED BY: LabCoVirtua BerlinRverxc9716 [facility] [id number] TSH 1.738 {uIU/mL} (Normal) Range: 0.350-5.500 Comments: Adult TSH concentrations below 5.5 uIU/mL do not rule out the presence of subclinical hypothyroidism. :33 CBC WITH MANUAL DIFF (32759) Comments: PATIENT WAS FASTINGClinical Information: ADD DRAW FEE [id number] ADD J 56091 PERFORMED BY: JOJO [facility] Isbtnd4207 [facility] [id number] Baso (Absolute) 0.0 {x10E3/uL} (Normal) Range: 0.0-0.2 [...] COMPREHENSIVE Comments: PATIENT WAS FASTINGPERFORMED BY: [facility] Yhslgh3993 [facility] [id number] (44942) A/G Ratio 2.0 (Normal) Range: 1.1-2.5 Albumin, [...] Serum 81 mg/dL (Normal) Range: 65-99 If -Mongolian >60 mL/min (Normal) Range: 60-128 Comments: Note: [...] Sodium, Serum 140 mmol/L (Normal) Range: 135-145 41-Jra-057903:33 LIPID PANEL (78202) Comments: PATIENT WAS FASTINGPERFORMED BY: LabCoVirtua BerlinRlarxh1729 [facility] [id number] Cholesterol, Total 344 mg/dL (Abnormal) Range: 100-199 [...] Report See Note (Normal) Comments: Exam Number: [id number] LEFT THUMB, 3 VIEWS STATEMENTPain. COMPARISON STUDYWrist [...] Report See Note (Normal) Comments: Exam Number: [id number] LEFT WRIST, 3 VIEWS STATEMENTWrist pain. There [...] GLU 2 HR GLU GTT-2 HOUR from 329:B67995G. 30 Range: 70-120 : GLU GTT-1 HOUR 116 mg/dL (Abnormal) Comments: 2HR GTT GLU 1 HR GLU GTT-1 HOUR from 329:Y69033L. 32 Range: 120-170 : GLU GTT-30 min. 125 mg/dL (Normal) Comments: 2HR GTT GLU 1/2 HR GLU GTT-30 min. from 329:Y91703B. 02 Range: 110-170 : C-REACTIVE PROT 9.22 [...] Comments: 2HR GTT FASTING GLU GTT-FASTING from 0330:V73252E. Range: 70-110 Comments: GLUCOSE TOLERANCE TEST Reference [...] Cyclospora, or Microspo ridia. TESTING PERFORMED AT [facility]. ORIGINAL REPORT ON FILE IN LAB [...] Education Indication: Diarrhea Planned Observations HGB A1C (57459)Indication: Elevated hemoglobin A1c On: 29-Szr-178667:43 Request CBC W/AUTO DIFF WBC (96677)Indication: Benign essential hypertension On: 42-Svy-358160:43 Request METABOLIC PANEL, COMPREHENSIVE (75089)Indication: Benign essential hypertension On: 53-Ldw-882923:43 Request LIPID PANEL (78088)Indication: Hypercholesteremia On: 20-Lyy-389598:42 Request CBC W/AUTO DIFF WBC (01564)Indication: Benign essential hypertension On: :11 Request METABOLIC PANEL, COMPREHENSIVE (33016)Indication: Benign essential hypertension On: :11 Request TMSIK-MGCETJBSTIF-XSKEN (13295)Indication: Fatty liver On: :11 Request UPEP (91410)Indication: Osteopenia On: 02-Iqo-449078:50 Request SPEP (78669)Indication: Osteopenia On: 03-Obf-365930:50 Request TSH (66977)Indication: Diarrhea On: :33 Request CBC WITH MANUAL DIFF (05448)Indication: Diarrhea On: 74-Xgp-168134:33 Request METABOLIC PANEL, COMPREHENSIVE (27333)Indication: Diarrhea On: :33 Request RU CULTURE-STOOL (25743)Indication: Diarrhea On: 89-Jtu-844538:05 Request OVA & PARASITE DIR SMEAR (26500)Indication: Diarrhea On: 84-Ino-134051:04 Request LEUKOCYTE COUNT, FECAL (00421)Indication: Diarrhea On: 10-Yhu-572992:04 Request C-DIFFICILE, STOOL (70786)Indication: Diarrhea On: 48-Uvy-462647:04 Request UPEP (25373)Indication: Osteopenia On: 91-Euh-245139:19 Request SPEP (08361)Indication: Osteopenia On: 62-Ohq-895388:19 Request TSH (96726)Indication: Vitamin D deficiency, unspecified On: 97-Ygy-569064:32 Request UPEP (69861)Indication: Vitamin D deficiency, unspecified On: :31 Request SPEP (01137)Indication: Vitamin D deficiency, unspecified On: : Request URINE CALCIUM KAIA TIMED 24 Hour (48982)Indication: Vitamin D deficiency, unspecified On: :31 Request PARATHORMONE (13587)Indication: Vitamin D deficiency, unspecified On: : Request PHOSPHORUS (04573)Indication: Vitamin D deficiency, unspecified On: :31 Request Vitamin D Hydroxy (48720)Indication: Vitamin D deficiency, unspecified On: :31 Request Vitamin D Hydroxy (94652)Indication: Vitamin D deficiency, unspecified On: 85-Gux-783068:50 Request CBC WITH MANUAL DIFF (73815)Indication: Hypercholesteremia On: 22-Usi-635623:50 Request METABOLIC PANEL, COMPREHENSIVE (43711)Indication: Hypercholesteremia On: 21-Aio-001580:49 Request CBC WITH MANUAL DIFF (61295)Indication: Polycythemia, secondary On: 43-Kvs-092435:08 Request METABOLIC PANEL, COMPREHENSIVE (71505)Indication: Migraine On: :08 Request Vitamin D Hydroxy (60946)Indication: Vitamin D deficiency, unspecified On: 07-Wuj-342699:08 Request LIPID PANEL (37940)Indication: Hypercholesteremia On: :08 Request YNVDJ-ZCVKZDGOHCE-PMMVT (00186)Indication: Fatty liver On: 39-Few-878960:08 Request PT (Prothrobim Time) (84469)Indication: Fatty liver On: :07 Request PTT (Activated Partial Thromboplastin Time) (10099)Indication: Fatty liver On: 84-Xdg-524841:07 Request LIPID PANEL (73656)Indication: Hypercholesteremia On: :33 Request METABOLIC PANEL, COMPREHENSIVE (53766)Indication: Fatty liver On: 52-Zil-081195:32 Request Vitamin D Hydroxy (17633)Indication: Vitamin D deficiency, unspecified On: 49-Szu-996057:16 Request CBC WITH MANUAL DIFF (96029)Indication: Leukopenia, unspecified type On: 05-Ldm-939031:13 Request METABOLIC PANEL, COMPREHENSIVE (67244)Indication: Osteopenia On: :39 Request Vitamin D Hydroxy (35229)Indication: Osteopenia On: :39 Request CBC WITH MANUAL DIFF (97605)Indication: Leukopenia, unspecified type On: :39 Request HEPATIC FUNCTION PANEL (49667)Indication: Hypercholesteremia On: :39 Request LIPID PANEL (90842)Indication: Hypercholesteremia On: :39 Request LDH (LD) (LACTATE DEHYDROGENASE) (12654) On: :24 Request CBC WITH MANUAL DIFF (49089)Indication: Leukopenia, unspecified type On: :24 Request Urine Protein Electrophoresis (UPEP) (04035)Indication: elevated albumin On: :38 Request Serum Protein Electrophoresis (SPEP) (31313)Indication: elevated albumin On: :38 Request CBC WITH MANUAL DIFF (84722) On: 48-Vja-749508:38 Request METABOLIC PANEL, COMPREHENSIVE (31668)Indication: Hypercholesteremia On: :45 Request LIPID PANEL (09963)Indication: Hypercholesteremia On: :45 Request CBC WITH MANUAL DIFF ([id number])Indication: Leukopenia, unspecified type On: 49-Cfy-695291:45 Request C-Reactive Protein (11541)Indication: Leukopenia, unspecified type On: 65-Zqk-029406:51 Request Sed Rate Erythrocyte (52216)Indication: Leukopenia, unspecified type On: 80-Cfy-460446:51 Request GLUCOSE TOLERANCE TEST (GTT) 2 hour ([id number])Indication: Family history of diabetes mellitus On: 60-Zow-336750:47 Request CBC with manual diff ([id number])Indication: Leukopenia, unspecified type On: 48-Fgw-149216:46 Request LIPID PANEL ([id number])Indication: Hypercholesteremia On: [id number] Request Comments: in 6 months TSH ([id number])Indication: Diarrhea On: 6-Xlk-104833:00 Request Metabolic Panel, Comprehensive ([id number])Indication: Blood in stool On: :56 Request URINALYSIS W/O MICRO ([id number])Indication: Blood in stool On: :49 Request Sed Rate Erythrocyte ([id number])Indication: Blood in stool On: :49 Request CBC (Auto) ([id number])Indication: Blood in stool On: :48 Request RU CULTURE-STOOL ([id number])Indication: Diarrhea On: :27 Request C.Difficile, StoolIndication: Diarrhea On: :27 Request LEUKOCYTE COUNT, FECAL ([id number])Indication: Diarrhea On: :27 Request OCCULT BLOOD FECES SCREEN ([id number])Indication: Diarrhea On: : Request OVA & PARASITE DIR SMEAR ([id number])Indication: Diarrhea On: :27 Request Planned Encounters Medical; [facility] 3 Month FU - On: 20-Sep-2018 9:45 [facility] Aparna William DO DO, Aparna A Planned Procedures CT - Chest (Without Contrast)By: Stewart On: 14-Jun-2018 Intent Aparna GARCIA Fast DO Aparna A Comments: high resolution ct of chest rule out interstitial lung disease DUPLEX SCAN OF RENAL ARTERY On: 29-Apr-2018 Intent ([id number])By: Aparna William DO Fast DO, Aparna A ELECTROCARDIOGRAM, COMPLETE (ECG) On: 24-Apr-2018 Intent ([id number])By: Aparna William DO Fast DO, Comments: ekg showed normal sinus rhythym, normal axis, no acute st/t wave changes Aparna A EEGBy: Aparna William DO Fast DO, On: 11-Jan-2018 Intent Aparna Jeter PFT - CompleteBy: Aparna William DO A On: 31-Aug-2017 Intent Aparna William DO A Ultrasound - LiverBy: Aparna William DO On: 20-Aug-2017 Intent A Stewart DO, Aparna A Spirometry ([id number])By: Aparna William DO On: 20-Aug-2017 Intent A Fast DO Aparna A Comments: good effort and curve normal ELECTROCARDIOGRAM, COMPLETE (ECG) On: 20-Aug-2017 Intent ([id number])By: Fast DO, Aparna A Fast DO, Comments: ekg showed normal sinus rhythym, normal axis, no acute st/t wave changes Aparna A Radiology - Chest- PA and LatBy: Fast On: 20-Aug-2017 Intent DO, Aparna A Fast DO, Aparna A SCREENING DIGITAL TOMOSYNTHESIS OF On: 20-Aug-2017 Intent BREAST ([id number])By: Fast DO, Aparna A Comments: end of aug Fast DO, Aparna A BILATERAL MAMMOGRAMS ([id number])By: Fast On: 19-Jul-2016 Intent DO, Aparna A Fast DO, Aparna A Comments: aug DEXA SCAN AXIAL SKELETON ([id number])By: On: 19-Jul-2016 Intent Fast DO, Aparna A Fast DO, Aparna A Comments: aug ELECTROCARDIOGRAM, COMPLETE (ECG) On: 18-Apr-2016 Intent ([id number])By: Fast DO, Aparna A Fast DO, Comments: [...] MAMMOGRAM, SCREENING, BOTH BREAST On: 17-Aug-2015 Intent ([id number])By: Fast DO, Aparna A Fast DO, Aparna A XR STERNOCLAVICULAR JOINT, 3 VIEWS On: 13-Apr-2015 Intent ([id number])By: Fast DO, Aparna A Fast DO, Comments: right Aparna A DEXA SCAN AXIAL SKELETON ([id number])By: On: 10-Aug-2014 Intent Fast DO, Aparna A Fast DO, Aparna A MAMMOGRAM, SCREENING, BOTH BREAST On: 10-Aug-2014 Intent ([id number])By: Fast DO, Aparna A Fast DO, Aparna A CT - Abdomen & Pelvis (IV Contrast On: 20-Jan-2014 Intent Needed)By: Fast DO, Aparna A Fast DO, Comments: stat call results Aparna A Eprescribed prescriptions ([id number])By: On: 03-Dec-2013 Intent Fast DO, Aparna A Fast DO, Aparna A Pelvic and Breast, Medicare On: 06-Oct-2013 Intent ([id number])By: Fast DO, Aparna A Fast DO, Aparna A EKG ([id number])By: Caryn Camacho On: 06-Aug-2013 Intent Comments: ekg showed normal sinus rhythym, normal axis, no acute st/t wave changes MAMMOGRAM, SCREENING, BOTH BREASTS On: 30-Apr-2013 Intent ([id number])By: Fast DO, Aparna A Fast DO, Comments: [...] MAMMOGRAM, SCREENING, BOTH BREASTS On: 10-Jun-2012 Intent ([id number])By: Fast DO, Aparna A Fast DO, Comments: jun Aparna A DXA, BONE DENSITY, AXIAL SKELETON On: 10-Jun-2012 Intent ([id number])By: Fast DO, Aparna A Fast DO, Comments: jun Aparna A Eprescribed prescriptions ([id number])By: On: 10-Jun-2012 Intent Caryn Camacho DXA, BONE DENSITY, AXIAL SKELETON On: 10-Oct-2011 Intent ([id number])By: Fast DO, Aparna A Fast DO, Comments: december Aparna A TD Injection , IM ([id number])By: On: 10-Oct-2011 Intent Caryn Camacho Comments: 2005 Eprescribed prescriptions ([id number])By: On: 13-Jun-2011 Intent Fast DO, Aparna A Fast DO, Aparna A MAMMOGRAM, SCREENING, BOTH BREASTS On: 13-Jun-2011 Intent ([id number])By: Fast DO, Aparna A Fast DO, Aparna A FLU VAC, SPLIT, >3 YEARS, INTRAMUSC On: 13-Jun-2011 Intent ([id number])By: Caryn Camacho Comments: pt refuses ELECTROCARDIOGRAM, COMPLETE (ECG) On: 30-Dec-2010 Intent ([id number])By: Clarissa Bolden CNP Comments: reviewed with Dr. Garcia, compared to October 10, 2010 EKG ([id number])By: Caryn Camacho On: 10-Oct-2010 Intent Comments: ekg showed normal sinus rhythym, normal axis, no acute st/t wave changes MAMMOGRAM, SCREENING, BOTH BREASTS On: 14-Feb-2010 Intent ([id number])By: Fast DO, Aparna A Fast DO, Comments: end mar Aparna A DXA, BONE DENSITY, AXIAL SKELETON On: 15-Oct-2009 Intent ([id number])By: Fast DO, Aparna A Fast DO, Comments: january Aparna A EKG ([id number])By: Caryn Camacho On: 07-Jul-2009 Intent Comments: ekg showed normal sinus rhythym, normal axis, no acute st/t wave changes upsloping st segments unchanged Ultrasound - SpleenBy: Fast DO, Aparna On: 22-Mar-2009 Intent A Fast DO, Aparna A Ultrasound - LiverBy: Fast DO, Aparna On: 22-Mar-2009 Intent A Fast DO, Aparna A MAMMOGRAM, SCREENING, BOTH BREASTS On: 22-Mar-2009 Intent ([id number])By: Fast DO, Aparna A Fast DO, Aparna [...] Aparna A Fast DO, Aparna A Spirometry ([id number])By: Fast DO, Aparna On: 23-Jan-2008 Intent A Fast DO, Aparna A Comments: good effort and curve- -with mild obstruction Radiology - Chest- PA and LatBy: Fast On: 23-Jan-2008 Intent DO, Aparna A Fast DO, Aparna A EKG ([id number])By: Fast DO, Aparna A Fast On: 23-Jan-2008 Intent DO, Aparna A Comments: ekg showed normal sinus rhythym, normal axis, no acute st/t wave changes DXA, BONE DENSITY, AXIAL SKELETON On: 23-Jan-2008 Intent ([id number])By: Fast DO, Aparna A Fast DO, Aparna A MAMMOGRAM, SCREENING, BOTH BREASTS On: 23-Jan-2008 Intent ([id number])By: Fast DO, Aparna A Fast DO, Aparna [...] Non-smoker Non-smoker : Patient Instructions Indication: Non-smoker [facility] Wellness Physical : How to access health information online Indication: [facility] Wellness Physical [facility] Physical : How to access health information online - Detail Indication: [facility] Wellness Physical [facility] Well[facility] Physical : Patient Instructions Indication: [facility] [...] available upon request. Encounters Office Visit On: 14-Jun-2018 9:27 Encounter Reason: [...] visit: note: (DX: TGA. Went to [facility] due to sudden memory loss. Said [...] house and called daughter and said romel ashlee looks wierd- kids came over and said [...] thought had kidney stone- helped then end mar woke up with kidne y stone pain again- took cranberry and stone grader supplement and took away- so no abdominal [...] medical issues: she is working still on [employer] back and being active and bp is [...] talk with Dr. William before seeing Dr. Jabore as she recommended.- now diarrhea coming and going - now bad gerd and taking otc acid mental health assistant and tums and doesnt do it - [...] The patient does have durable power of personal injury attorney and living will. The patient has noticed [...] effects and compliant with dosing regimen. Pat forrestnt sleeps 8 hours per night. Nutrition: balanced [...]
--- OUTSIDE RECORDS SUMMARY | 2018-08-07 06:53 | XMS RPT_ITS | Continuity of Care Document ---
:1940 Author Organization [facility] Address [address] [place] [address] Phone Care Team Providers Name Role Phone Aparna William DO Unavailable Hearing Services-- Ryan Lynch Unavailable Dr. [...] elevated without history of HTN (R03.0, 796.2) Status: Active BMI between 19-24,adult (V85.1) Status: [...] Quantity: 30 {Tablet} Refills: 0 Ordered:24-Apr-2018 Aparna GARCIA DO, Debra A Start : 24-Apr-2018 Active Comments:take with food Atorvastatin Calcium 10 MG Oral Tablet 1 (one) Tablet qd for 0 days Quantity: 30 {Tablet} Refills: 3 Ordered:06-Mar-2018 Aparna GARCIA DO, Debra A Start : 06-Mar-2018 Active CALCIUM CITRATE + (Oral Tablet) 1 Tablet qd for 30 days Quantity: 30 {Tablet} Refills: 0 Ordered:23-Oct-2016 Caryn Camacho Start : 22-Feb-2011 Active CloNIDine HCl 0.1 MG Oral Tablet 1 (one) Tablet qd prn for 0 days Quantity: 30 {Tablet} Refills: 0 Ordered:24-Apr-2018 Aparna GARCIA DO, Debra A Start : 24-Apr-2018 Active Famotidine 20 MG Oral Tablet 1 (one) Tablet daily for 0 days Quantity: 30 {Tablet} Refills: 6 Ordered:08-Mar-2018 Aparna GARCIA DO, Debra A Start : 08-Mar-2018 Active FISH OIL, 300MG (Oral Capsule) 1 Capsule Daily for 0 days Refills: 0 Ordered:16-Oct-2006 Caryn Camacho Start : 16-Oct-2006 Active HYOSCYAMINE SULFATE, 0.125MG (Oral Tablet) 1 tab prn (0.125 MG) Active Imitrex 25 MG Oral Tablet 1 Tablet QD PRN for 0 days Quantity: 10 {Tablet} Refills: 3 Ordered:08-Mar-2018 DO, Aparna AFast DO, Aparna A Start : 08-Mar-2018 Active LORazepam 0.5 MG Oral Tablet 1 (one) Tablet Tablet qd prn anxiety for 30 days Refills: 2 Ordered:11-Jan-2018 Kia Mejia Start : 11-Jan-2018 Active Comments:five - dont drive while taking this medicine Premarin 0.625 MG/GM Vaginal Cream uad Cream prn for 0 days Quantity: 42 {Gram} Refills: 3 Ordered:25-Oct-2017 Aparna GARICAast DO, Aparna A Start : 25-Oct-2017 Active [...] days Quantity: 30 {Capsule} Refills: 0 Ordered:17-Aug-2015 DO, Aparna AFast DO, Aparna A Start : 17-Aug-2015 Active Topamax 25 MG Oral Tablet 1 (one) Tablet daily for 0 days Quantity: 30 {Tablet} Refills: 3 Ordered:08-Mar-2018 Kia Mejia Start : 03-Dec-2017 End : 08-Mar-2018 Inactive CRESTOR, 10MG (Oral Tablet) 1 (one) Tablet couple times week for 0 days Quantity: 30 {Tablet} Refills: 3 Ordered:12-Maykel-2015 Aparna William DO, DO, Debra A Start : 10-Aug-2014 End : 10-Aug-2014 Discontinued ERGOCALCIFEROL, 44109NQBB (Oral Capsule) 1 (one) Capsule q week for 0 days Quantity: 4 {Capsule} Refills: 0 Ordered:06-Feb-2012 Aparna William DO, DO, Debra A Start : 06-Feb-2012 End : 06-Feb-2012 [...] days Quantity: 30 {Capsule} Refills: 3 Ordered:03-Dec-2013 Aparna William DO, DO Aparna A Start : 03-Dec-2013 End : 03-Dec-2013 Discontinued Pravastatin Sodium 10 MG Oral Tablet 1 (one) Tablet qd for 0 days Quantity: 30 {Tablet} Refills: 3 Ordered:18-Apr-2016 Aparna William DO, DO, Debra A Start : 18-Apr-2016 End : 18-Apr-2016 Discontinued PRAVASTATIN SODIUM, 20MG (Oral Tablet) 1 (one) Tablet qd for 0 days Quantity: 30 {Tablet} Refills: 4 Ordered:13-Apr-2015 Aparna William DO, DO Aparna A Start : 13-Apr-2015 End : 13-Apr-2015 Discontinued PRILOSEC OTC, 20MG (Oral Tablet Delayed Release) 1 (one) Tablet DR qd for 0 days Quantity: 30 {Tablet_DR} Refills: 0 Ordered:03-Feb-2014 Caryn Camacho Start : 10-Oct-2011 End : 03-Feb-2014 Discontinued SIMVASTATIN, 20MG (Oral Tablet) 1 Tablet daily for 0 days Quantity: 30 {Tablet} Refills: 3 Ordered:10-Oct-2011 Carny Camacho Start : 10-Oct-2011 End : 10-Oct-2011 Discontinued VALTREX, 1GM (Oral Tablet) 1 (one) Tablet TID for 0 days Quantity: 21 {Tablet} Refills: 0 Ordered:31-Jayant-2008 Caryn Camacho Start : 27-Feb-2008 End : [...] 06-Feb-2018 Electroencephalogram Result: Comments: See Note; NOTES: [facility] Pulmonary Services/Neurology [address] [place] [address] MR#: [id number] Acct: [id number] Name: JACI BEE Rep #: [id number] : 1940 77 From: Annika Salmon MD [...] Dictated: 01/26/18 1023 Date Transcribed: 01/26/18 1023 Measurement Supervisor: RSR Signed 27-Sep-2017 Pulmonary Function Test Result: Comments: See Note; NOTES: [facility] Pulmonary Services/Neurology [address] [place] [address] MR#: [id number] Acct: [id number] Name: JACI BEE Rep #: [id number] : 1940 76 From: Robert Rodriguez DO [...] DO Date Dictated: 09/27/176 Date Transcribed: 09/27/171335 Measurement Supervisor: DB Signed 20-Sep-2017 SCREENING MAMM (CAD), BILAT Result: Comments: See Note; NOTES: [facility] Imaging Services [address] [place] [address] SCREENING MAMM (CAD), BILAT MR#: [id number] Acct: [id number] Name: JACI BEE Rep #: [id number] : 1940 F 76 From: Constantino Bryan MD PCP: Aparna William DO Status: REG CLI Study: SCREENING MAMM (CAD), BILAT Date of Exam: 09/20/17 Exam# [id number] Ordering Dr: Aparna William DO MAMMOGRAPHY - [...] delay biopsy of a clinically suspicious abnormality. [id number] Electronically Signed: Constantino Bryan MD at 11:06 EST Tel [phone], Service support , CC: Aparna William DO Measurement Supervisor: Signed 23-Aug-2017 Liver Result: Comments: See Note; NOTES: [facility] Imaging Services [address] [place] [address] Liver MR#: [id number] Acct: [id number] Name: JACI BEE Rep #: [id number] : [birth year] F 76 From: Constantino Bryan MD PCP: Aparna William DO Status: REG CLI Study: Liver Date of Exam: 08/23/17 Exam# [id number] Ordering Dr: Aparna William DO STUDY: ABDOMINAL [...] Carl Bryan MD at 10:14 EST Tel [phone], Service support , CC: Aparna William DO Measurement Supervisor: Signed 20-Aug-2017 Chest PA and Lateral Result: Comments: See Note; NOTES: [facility] Imaging Services [address] [place] [address] Chest PA and Lateral MR#: [id number] Acct: [id number] Name: JACI BEE Rep #: [id number] : 1940 F 76 From: Constantino Bryan MD PCP: Aparna William DO Status: REG CLI Study: Chest PA and Lateral Date of Exam: 08/20/17 Exam# [id number] Ordering Dr: Aparna William DO STUDY: X-RAY [...] Constantino Bryan MD at 19:29 EST Tel [phone], Service support , CC: Aparna William DO Measurement Supervisor: Signed 19-Sep-2016 Dexa Bone Density Study (HP) Result: Comments: See Note; NOTES: [facility] Imaging Services [address] [place] [address] Verdana 4d Dexa Bone Density Study (HP) MR#: [id number] Acct: [id number] Name: SHMUELYAZMINKGTamicaKEIKO Kassandra Rep #: [id number] : 1940 F 75 From: Constantino Bryan MD PCP: Aparna William DO Status: REG CLI Study: Dexa Bone Density Study () Date of Exam: 09/19/16 Exam# [id number] Ordering Dr: Aparna William DO STUDY: DUAL [...] Constantino Bryan MD at 14:02 EST Tel [phone], Service support [phone], CC: Aparna William DO Measurement Supervisor: Signed 19-Sep-2016 SCREENING MAMM (CAD), BILAT Result: Comments: See Note; NOTES: [facility] Imaging Services [address] [place] [address] Verdana 4d SCREENING MAMM (CAD), BILAT MR#: [id number] Acct: [id number] Name: ROCHELLEKGFERMIN Davey Rep #: [id number] : 1940 F 75 From: Constantino Bryan MD PCP: Aparna William DO Status: REG CLI Study: SCREENING MAMM (CAD), BILAT Date of Exam: 09/19/16 Exam# [id number] Ordering Dr: Aparna William DO MAMMOGRAPHY - [...] delay biopsy of a clinically suspicious abnormality. [id number] Electronically Signed: Constantino Bryan MD at 15:03 EST Tel [phone], Service support [phone], CC: Aparna William DO Measurement Supervisor: Signed 21-Jan-2016 Emergency Department Summary Result: Comments: See Note; NOTES: [facility] Medical Records Department [address] [place] [address] Emergency Department Summary MR#: [id number] Acct: [id number] Name: JACI BEE Kassandra Rep #: [id number] : 1940 75 From: Erich Contreras MD PCP: Aparna William DO Status: [facility] ER DATE OF SERVICE: 01/17/2016 CHIEF COMPLAINT: [...] Edwina Yadav C: Aparna William DO T: [facility] JOB: [id number] 01/21/16 0755 <Electronically signed by Erich Contreras MD> Date Erich Contreras MD Cosigner Signature (If Indicated): Date _ CC: Aparna William DO Date Dictated: 01/17/16939 Date Transcribed: 01/17/16939 Measurement Supervisor: Signed 17-Jan-2016 Discharge Instruction Result: Comments: See Note; NOTES: [facility] Medical Records Department [address] [place] [address] Discharge Instruction 01/17/16 0834 MR#: [id number] Acct: [id number] Name: NENATamicaJACI E Rep #: [id number] : 1940 75 From: Erich Contreras MD [...] problems, contact your doctor. Call [facility] ([phone]) or report to the closest Emergency Room. Call 911 if necessary. 01/17/16 0835 &amp ;#60;Electronically signed by Erich Contreras MD> Date Erich Contreras MD Cosigner Signature (If Indicated): Date CC: Aparna William DO 17-Jan-2016 Abdomen/Pelvis without Cont Result: Comments: See Note; NOTES: [facility] Imaging Services [address] [place] [address] Verdana 4d Abdomen/Pelvis without Cont MR#: [id number] Acct: [id number] Name: JACI BEE Kassandra Rep #: [id number] : 1940 F 75 From: Constantino Bryan MD PCP: Aparna William DO Status: REG ER Study: Abdomen/Pelvis without Cont Date of Exam: 01/17/16 Exam# [id number] Ord ering Dr: Erich Contreras MD STUDY: [...] Constantino Bryan MD at 8:11 EDT Tel [phone], Service support [phone], CC: Aparna William DO; Erich Contreras MD Measurement Supervisor: Signed 10-Jan-2016 Echocardiogram Complete Result: Comments: See Note; NOTES: [facility] Cardiovascular Services [address] [place] [address] Echo Complete 01/10/16 0848 MR#: [id number] Acct: [id number] Name: JAIC HA Rep #: [id number] : 1940 75 From: Bari Mosley MD Attending Dr: Aparna William DO Status: REG CLI Ordering Dr: Aparna William DO Date: 01/10/16 Location: [facility] Sex: F C Admitted: Reason For [...] MD CC: Aparna William DO Date Dictated: 01/10/16 0848 Date Transcribed: 01/10/161228 Measurement Supervisor: Signed 10-Jan-2016 Nuclear Stress Test - Treadmil Result: Comments: See Note; NOTES: [facility] Imaging Services [address] [place] [address] Verdana 4d Nuclear Stress Test - Treadmil MR#: [id number] Acct: [id number] N debbie: JACI BEE Rep #: [id number] : 1940 75 From: Bari Mosley MD [...] capacity. Bari Mosley MD T: NTS JOB: [id number] 01/14/1609 <Electronically signed by Bari Mosley MD> Date Bari Mosley MD CC: Aparna William Date Dictated: 01/10/16933 Date Transcribed: 01/10/16933 Measurement Supervisor: Signed 21-Dec-2015 EKG (96331) Comments: ekg showed normal sinus rhythym, normal axis, no acute st/t wave changes Result: [MEASUREMENTS ANALYSIS] Date of Test: 12/21/2015 11:21:34; Heart Rate: 71; NM Interval: 178; QRS: 88; QT Interval: 396; Corrected QT Interval (QTc): 415; P Wave [place]: 54; QRS Wave [place]: 12; T Wave [place]: 45; Blood Pressure: 154/90 [ECG DIAGNOSTIC STATEMENTS] Date of Test: 12/21/2015 11:21:34; Summary: Sinus Rhythm WITHIN NORMAL LIMITS 17-Sep-2015 Bilat Scrn Digital AND CAD Result: Comments: See Note; NOTES: [facility] Imaging Services [address] [place] [address] Verdana 4d Bilat Scrn Digital AND CAD MR#: [id number] Acct: [id number] Name: JACI BEE Rep #: [id number] : 1940 F 74 From: Constantino Bryan MD PCP: Aparna William DO Status: REG CLI Study: Bilat Scrn Digital AND CAD Date of Exam: 09/17/15 Exam# [id number] Orde ring Dr: Aparna William DO MAMMOGRAPHY [...] delay biopsy of a clinically suspicious abnormality. [id number] Electronically Signed: Constantino Bryan MD at 14:44 EST Tel [phone], Service support [phone], CC: Aparna William DO Measurement Supervisor: Signed 13-Apr-2015 S-C Jts Min 3 Views Result: Comments: See Note; NOTES: [facility] Imaging Services [address] [place] [address] Radiology Report MR#: [id number] Acct: [id number] Name: JACI BEE Rep #: [id number] : 1940 F 74 From: Constantino Bryan MD PCP: Aparna William DO Status: REG CLI Study: S-C Jts Min 3 Views Date of Exam: 04/13/15 Exam# [id number] Ordering Dr: Aparna William DO STUDY: X-RAY [...] Constantino Bryan MD at 15:10 EDT Tel [phone], Service s upport [phone], RAD/S-C Jts Min 3 Views IMPRESSION: Normal x-ray of the bilateral sternoclavicular articulations. Electronically Signed: Constantino martinez MD at 15:10 EDT Tel [phone], Service support [phone], CC: Aparna William DO Measurement Supervisor: Signed 20-Aug-2014 Bilat Scrn Digital AND CAD Result: Comments: See Note; NOTES: [facility] Imaging Services [address] [place] [address] Breast Imaging Report MR#: [id number] Acct: [id number] Name: JACI BEE Rep #: [id number] : 1940 F 73 From: Constantino Bryan MD PCP: Aparna William DO Status: REG CLI Study: Bilat Scrn Digital AND CAD Date of Exam: 08/20/14 Exam# [id number] Ordering Dr: Aparna William DO MAMMOGRAPHY - BILATERAL SCREENING REASON FOR EXAM: Female, 73 years old. Routine annual screening examination. PERTINENT HISTORY: Non-contributory. TECHNIQUE: Digital examination. Mediolater al oblique (MLO) and craniocaudad (CC) views of both breasts were obtained. CAD: CAD was performed on this study. COMPARISON: Comparison is made with prior study dated July 21, 2013 and [facility] 2011. FINDINGS: Breast Composition: There [...] Constantino harden MD at 10:22 EST Tel [phone], Service support [phone], CC: Aparna William DO Measurement Supervisor: Signed 20-Aug-2014 Dexa Bone Density Study (HP) Result: Comments: See Note; NOTES: [facility] Imaging Services [address] [place] [address] Bone Density Report MR#: [id number] Acct: [id number] Name: JACI BEE Rep #: [id number] : 1940 F 73 From: Constantino Bryan MD PCP: Aparna William DO Status: REG CLI Study: Dexa Bone Density Study (HP) Date of Exam: 08/20/14 Exam# [id number] Ordering Dr: Aparna William DO STUDY: DUAL [...] Constantino Bryan MD at 11:26 EST Tel [phone], Service support [phone], CC: Aparna William DO Measurement Supervisor: Signed 20-Jan-2014 Abdomen/Pelvis WITH Contrast Result: Comments: See Note; NOTES: [facility] Imaging Services [address] [place] [address] CAT Scan Report MR#: [id number] Acct: [id number] Name: JACI BEE Rep #: [id number] : 1940 F 73 From: Jose J Gordillo MD PCP: Aparna William DO Status: REG CLI Study: Abdomen/Pelvis WITH Contrast Date of Exam: 01/20/14 Exam# [id number] Ordering Dr: Aparna William DO STUD Y: [...] MD at 17:37 EDT , Service support [phone], CC: Aparna William DO Measurement Supervisor: Signed 21-Jul-2013 Gege Hernandez Digital & CAD Result: Comments: See Note; NOTES: [facility] Imaging Services [address] [place] [address] Breast Imaging Report MR#: [id number] Acct: [id number] Name: JACI BEE Rep #: [id number] : 1940 F 72 From: Jose J Gotti MD PCP: Aparna William DO Status: REG CLI Exam# [id number] Ordering Dr: Aparna William DO MAMMOGRAPHY - [...] M.D. at 16:22 EST , Service support [phone], CC: Aparna William DO Measurement Supervisor: Signed 11-Jun-2013 PT Discharge Summary Result: Comments: See Note; NOTES: [facility] Physical Therapy [facility] [address] [place], [place] [address] Fax REHABILITATION SERVICES DISCHARGE SUMMARY MR#: [id number] Acct: [id number] Name: JACI BEE Rep #: [id number] : 1940 72 From: Sheryl Armstrong Referring Dr.: Aparna William DO Status: REG RCR Eval Date: Discha rge Date: DATE OF SERVICE: 06/11/2013 This patient was referred to physical therapy by Dr. Aparna William with a chief complaint of back and right lower extremity pain. She has been seen in our cli nnacy times a total of 9 visits. Her physical therapy has mainly consisted of therapeutic exercise for dynamic lumbar stabilization and lower extremity strengthening. We used Kristina's extension pr inciples of treatment. She has responded well. She reports 75-80% improvement since starting physical therapy. She reports that she is much better. She is excited to report that kai cannon is running up and down the steps [...] C: Aparna William DO T: NTS JOB: [id number] <Electronically signed by Sheryl Armstrong > 06/11/13 1344 CC: * Signed 28-May-2013 Inital Evaluation - PT Result: Comments: See Note; NOTES: [facility] Physical Therapy [facility] [address] [place], [place] [address] Fax REHABILITATION SERVICES INITIAL EVALUATION MR#: [id number] Acct: [id number] Name: JACI BEE Rep #: [id number] : 1940 72 From: Sheryl Armstrong Referring [...] decreased independent exercise knowledge. Oswestry equals 10, O8579-NX, V4783-TE. GOALS: 1. Decrease complaint of low back [...] first. 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 Status: Active Smoking Status Name Dates Details Never smoker Vital Signs Date Test Result Details :36 Temperature 97.2 f Comments: Method: Temporal [...] Calculated 1.7 m2 Head Circumference 0.00 cm 6-Hoj-330970:59 Pulse 60 /min Comments: Pattern: Regular Respiration [...] 0.00 cm Results Date Description Value Details 40-Pbz-226908:25 HGB A1C (42103) Comments: PATIENT WAS FASTINGPERFORMED BY: [employer] [facility] [id number] Hemoglobin A1c 5.3 % (Normal) Range: 4.8-5.6 Comments: . Pre-diabetes: 5.7 - 6.4 Diabetes: >6.4 Glycemic control for adults with diabetes: <7.0 75-Fdp-289377:25 MICROALBUMIN: CREATININE RATIO Comments: PATIENT WAS FASTINGPERFORMED BY: [employer] [facility] [id number] (12878) AND (08530) Alb/Creat Ratio <19.6 {mg/g_creat} (Normal) Range: 0.0-30.0 Albumin, Urine <3.0 ug/mL (Normal) Creatinine, Urine 15.3 mg/dL (Normal) 53-Pyg-919821:25 LIPID PANEL (93486) Comments: PATIENT WAS FASTINGPERFORMED BY: [employer]6[facility] [id number] LDL/HDL Ratio 2.6 {ratio} (Normal) Range: 0.0-3.2 Comments: LDL/HDL Ratio Men Women 1/2 Avg.Risk 1.0 1.5 Av g.Risk 3.6 3.2 2X Avg.Risk 6.2 5.0 3X Avg.Risk 8.0 6.1 LDL Cholesterol Calc 138 mg/dL (Abnormal) Range: 0-99 VLDL Cholesterol Celso 15 mg/dL (Normal) Range: 5-40 HDL Cholesterol 53 mg/dL (Normal) Triglycerides 76 mg/dL (Normal) Range: 0-149 Cholesterol, Total 206 mg/dL (Abnormal) Range: 100-199 14-Kzq-686297:25 CBC & PLATELETS (AUTO) Comments: PATIENT WAS FASTINGPERFORMED BY: [facility]6370 [facility] [id number] (28567) Platelets 166 {x10E3/uL} (Normal) Range: 150-379 RDW 12.3 % (Normal) Range: 12.3-15.4 MCHC 34.1 g/dL (Normal) Range: 31.5-35.7 MCH 29.9 pg (Normal) Range: 26.6-33.0 MCV 88 fL (Normal) Range: 79-97 Hematocrit 45.4 % (Normal) Range: 34.0-46.6 Hemoglobin 15.5 g/dL (Normal) Range: 11.1-15.9 RBC 5.19 {x10E6/uL} (Normal) Range: 3.77-5.28 WBC 3.9 {x10E3/uL} (Normal) Range: 3.4-10.8 60-Rjf-868141:25 METABOLIC PANEL, COMPREHENSIVE Comments: PATIENT WAS FASTINGPERFORMED BY: [place] 0949170 [facility] [id number] (91057) ALT (SGPT) 21 [iU]/L (Normal) Range: 0-32 [...] 8-27 Glucose 82 mg/dL (Normal) Range: 65-99 18-Rmo-474117:14 CBC W/AUTO DIFF WBC Comments: PATIENT NOT FASTINGPERFORMED BY: [facility] Fafjdf5577 [facility] [id number] Information: NURSE DRAW (78482) Immature Grans (Abs) 0.0 {x10E3/uL} (Normal) Range: [...] 3.77-5.28 WBC 6.1 {x10E3/uL} (Normal) Range: 3.4-10.8 74-Jwj-189037:14 METABOLIC PANEL, COMPREHENSIVE Comments: PATIENT NOT FASTINGPERFORMED BY: [facility] Lvuljx8842 [facility] [id number]; review 12/03 (60847) ALT (SGPT) 25 [iU]/L (Normal) Range: 0-32 [...] 8-27 Glucose 81 mg/dL (Normal) Range: 65-99 40-Knx-863270:42 TSH (40629) Comments: PATIENT NOT FASTINGPERFORMED BY: [facility] Rkbsjy2378 [facility] [id number] TSH 3.330 {uIU/mL} (Normal) Range: 0.450-4.500 87-Zly-582072:42 SED RATE ERYTHROCYTE (44857) Comments: PATIENT NOT FASTINGPERFORMED BY: [facility], Old BridgeMefknv9589 [facility] [id number] Sedimentation Rate-Westergren 4 mm/h (Normal) Range: 0-40 57-Alz-621316:42 C-REACTIVE PROTEIN (35403) Comments: PATIENT NOT FASTINGPERFORMED BY: [facility], Old BridgeFpleww5493 [facility] [id number] C-Reactive Protein, Quant <0.3 mg/L (Normal) Range: 0.0-4.9 66-Ihu-320843:42 HEPATITIS C ANTIBODY (49164) Comments: PATIENT NOT FASTINGPERFORMED BY: [facility], Old BridgeMriuoe4628 [facility] [id number] Hep C Virus Ab <0.1 {s/co_ratio} (Normal) Range: 0.0-0.9 Comments: Negative: < 0.8 Indeterminate: 0.8 - 0.9 Positive: > 0.9 . The CDC recommends that a positive HCV antibody result be followed up with a HCV Nucleic Acid Amplification test (924475). 26-Cuj-717021:42 PQUQF-DDYYHLOCNJZ-MQCDG (52022) Comments: PATIENT NOT FASTINGPERFORMED BY: [facility], Old BridgeTbgjpi3166 [facility] [id number] AFP, Serum, Tumor Marker 1.9 ng/mL (Normal) Range: 0.0-8.3 Comments: Jona ECLIA methodology 79-Qfv-861314:47 LIPOPROTEIN, BLD, BY NMR Comments: PATIENT WAS FASTINGPERFORMED BY: [facility]14[address] [facility] [id number] BY: [facility]6370 [facility] [id number]; can review on 08/20 (85300) LP-IR Score 71 (Abnormal) Comments: INSULIN RESISTANCE MARKER <--Insulin Sensitive Insulin Resistant--> Percentile in Reference PopulationInsulin Resistance ScoreLP-IR Score Low 25th 50th 75th High <27 27 45 63 >63LP-IR Score is inaccurate if patient is non-fasting. .The LP-IR score is a laboratory developed i [facility] that has beenassociated with insulin [...] 1600 - 2000 Very High > 2000 83-Vap-360739:47 MICROALBUMIN: CREATININE Comments: PATIENT WAS FASTINGPERFORMED BY: [employer] [id number] BY: [facility]armaR[facility], Old BridgeOcduay9045 [facility] [id number] RATIO (25937) AND (90716) Alb/Creat Ratio <12.7 {mg/g_creat} (Normal) Range: 0.0-30.0 Albumin, Urine <3.0 ug/mL (Normal) Creatinine, Urine 23.6 mg/dL (Normal) 17-Nrw-302663:47 CBC with auto diff Comments: PATIENT WAS FASTINGPERFORMED BY: [facility]armaLind[place] [address] [facility] [id number] BY: [facility] PharmaUNM HospitalHqvvha0899 [facility] [id number] (55590) Immature Grans (Abs) 0.0 {x10E3/uL} (Normal) Range: [...] 3.77-5.28 WBC 3.6 {x10E3/uL} (Normal) Range: 3.4-10.8 27-Xap-362606:47 METABOLIC PANEL, Comments: PATIENT WAS FASTINGPERFORMED BY: BN [facility] Jqflieavmc2340 [facility] [id number] BY: CB [facility] Erazgh2063 [facility] [id number] COMPREHENSIVE (99075) ALT (SGPT) 24 [iU]/L (Normal) Range: 0-32 [...] Glucose, Serum 80 mg/dL (Normal) Range: 65-99 45-Wyz-898981:47 HGB A1C (21208) Comments: PATIENT WAS FASTINGPERFORMED BY: [facility] [id number] BY: [facility]CoR[facility], Old BridgeIfprqf8438 [facility] [id number] Hemoglobin A1c 5.4 % (Normal) Range: 4.8-5.6 Comments: . Pre-diabetes: 5.7 - 6.4 Diabetes: >6.4 Glycemic control for adults with diabetes: <7.0 01-May-20178:49 CBC with auto diff Comments: PATIENT WAS FASTINGPERFORMED BY: [facility]CoR[facility], Old BridgeSrfibs0479 [facility] [id number] Information: H53760, 186462 (12457) Immature Grans (Abs) 0.0 {x10E3/uL} (Normal) Range: [...] 3.77-5.28 WBC 3.5 {x10E3/uL} (Normal) Range: 3.4-10.8 :49 METABOLIC PANEL, COMPREHENSIVE Comments: PATIENT WAS FASTINGPERFORMED BY: CirclePublish70 [facility] [id number] (23928) ALT (SGPT) 29 [iU]/L (Normal) Range: 0-32 [...] mg/dL (Normal) Range: 65-99 :49 HGB A1C (21228) Comments: PATIENT WAS FASTINGPERFORMED BY: Interactive Fate6370 [facility] [id number] Hemoglobin A1c 5.5 % (Normal) Range: 4.8-5.6 Comments: . Pre-diabetes: 5.7 - 6.4 Diabetes: >6.4 Glycemic control for adults with diabetes: <7.0 :49 LIPID PANEL (31706) Comments: PATIENT WAS FASTINGPERFORMED BY: TCD PharmaRaritan Bay Medical Center, Old BridgeLiztcu9479 [facility] [id number]; review at 05/14 appt LDL/HDL Ratio 2.1 [...] mg/dL (Normal) Range: 100-199 :27 CBC (AUTO) (34419) Comments: PATIENT WAS FASTINGPERFORMED BY: [employer] [id number] BY: Bonush Eqtypy4180 [facility] [id number] Platelets 184 {x10E3/uL} (Normal) Range: 150-379 RDW 12.7 % (Normal) Range: 12.3-15.4 MCHC 32.5 g/dL (Normal) Range: 31.5-35.7 MCH 29.5 pg (Normal) Range: 26.6-33.0 MCV 91 fL (Normal) Range: 79-97 Hematocrit 46.8 % (Abnormal) Range: 34.0-46.6 Hemoglobin 15.2 g/dL (Normal) Range: 11.1-15.9 RBC 5.15 {x10E6/uL} (Normal) Range: 3.77-5.28 WBC 4.5 {x10E3/uL} (Normal) Range: 3.4-10.8 :27 Vitamin D Hydroxy Comments: PATIENT WAS FASTINGPERFORMED BY: BN [facility] Zatxapeqxx9998 [facility] [id number] BY: Independent IP Limdeb4202 [facility] [id number] (97607) Vitamin D, 25-Hydroxy 49.9 ng/mL (Normal) Range: 30.0-100.0 Comments: Vitamin D deficiency has been defined by the [place] [facility] and an Endocrine Society practice guideline as alevel of serum 25-OH vitamin D less than 20 ng/mL (1,2).The Endocrine Society went on to further define vitamin Dinsufficiency as a level between 21 and 29 ng/mL (2).1. IOM ([place] of Medicine). 2010. Dietary reference intakes for calcium and D. [place]: The National Academies Press.2. Mayur MF, Scar LAWRENCE, Claribel CAMP, et al. Evaluation, treatment, and prevention of vitamin D deficiency: an Endocrine Society clinical practice guideline. JCEM. 2010; 96(7):1911-30. :27 MICROALBUMIN: CREATININE Comments: PATIENT WAS FASTINGPERFORMED BY: [employer] [id number] BY: Interactive Fate6370 [facility] HospitalNeuronetrixCount includes the [facility] [id number] RATIO (73066) AND (79930) Microalb/Creat Ratio <13.2 {mg/g_creat} (Normal) Range: 0.0-30.0 Creatinine, Urine 22.8 mg/dL (Normal) Microalbumin, Urine <3.0 ug/mL (Normal) :27 HGB A1C (17356) Comments: PATIENT WAS FASTINGPERFORMED BY: [employer] [id number] BY: Independent IP Tabfqu9674 [facility] [id number] Hemoglobin A1c 5.5 % (Normal) Range: 4.8-5.6 Comments: . Pre-diabetes: 5.7 - 6.4 Diabetes: >6.4 Glycemic control for adults with diabetes: <7.0 :27 METABOLIC PANEL, Comments: PATIENT WAS FASTINGPERFORMED BY: [employer] [address] [id number] BY: LabCoRaritan Bay Medical Center, Old BridgeHnjuld0031 [facility] [id number] COMPREHENSIVE (11512) ALT (SGPT) 27 [iU]/L (Normal) Range: 0-32 [...] Glucose, Serum 84 mg/dL (Normal) Range: 65-99 63-Cfw-18828:27 LIPOPROTEIN, BLD, BY NMR Comments: PATIENT WAS FASTINGPERFORMED BY: LabCo[address] [id number] BY: LabCoChristopher V[place] 7893170 [facility] [id number]; non-emergent till apt (44263) LP-IR Score 62 (Abnormal) Comments: INSULIN RESISTANCE MARKER <--Insulin Sensitive Insulin Resistant--> Percentile in Reference PopulationInsulin Resistance ScoreLP-IR Score Low 25th 50th 75th High <27 27 45 63 >63LP-IR Score is inaccurate if patient is non-fasting. .The LP-IR score is a laboratory developed [facility] that has beenassociated with insulin [...] were developed and their performance characteristicsdetermined by [employer]. These assays have not been cleared by [...] 1600 - 2000 Very High > 2000 :27 INZOV-RAZCXYECWFR-VDVFP (94443) Comments: PATIENT WAS FASTINGPERFORMED BY: [employer] [address] [id number] BY: [employer]70 [facility]in [place] [id number] AFP, Serum, Tumor Marker 2.6 ng/mL (Normal) Range: 0.0-8.3 Comments: Jona ECLIA methodology :48 Vitamin D Hydroxy Comments: PATIENT WAS FASTINGPERFORMED BY: [employer] [id number] BY: CirclePublish70 [facility] [id number] (91722) Vitamin D, 25-Hydroxy 40.8 ng/mL (Normal) Range: 30.0-100.0 Comments: Vitamin D deficiency has been defined by the [place] [facility] and an Endocrine Society practice guideline as alevel of serum 25-OH vitamin D less than 20 ng/mL (1,2).The Endocrine Society went on to further define vitamin Dinsufficiency as a level between 21 and 29 ng/mL (2).1. IOM ([place] of Medicine). 2010. Dietary reference intakes for calcium and D. [place]: The National Academies Press.2. Mayur MF, Scar NC, Claribel CAMP, et al. Evaluation, treatment, and prevention of vitamin D deficiency: an Endocrine Society clinical practice guideline. JCEM. 2010; 96(7):1911-30. :48 HGB A1C (80063) Comments: PATIENT WAS FASTINGPERFORMED BY: PriviaLindsay [place] [address] [facility] [id number] BY: CirclePublish70 [facility] [id number] Hemoglobin A1c 5.5 % (Normal) Range: 4.8-5.6 Comments: . Pre-diabetes: 5.7 - 6.4 Diabetes: >6.4 Glycemic control for adults with diabetes: <7.0 :48 CBC W/AUTO DIFF WBC Comments: PATIENT WAS FASTINGPERFORMED BY: BN [facility] Muofeyzuvk5938 [facility] [id number] BY: CB [facility] Aikwkl3619 [facility] [id number] (19947) Immature Grans (Abs) 0.0 {x10E3/uL} (Normal) Range: [...] METABOLIC PANEL, Comments: PATIENT WAS FASTINGPERFORMED BY: [employer] [id number] BY: TCD PharmaChristopher [place] 7893170 [facility] [id number] COMPREHENSIVE (49451) ALT (SGPT) 21 [iU]/L (Normal) Range: 0-32 [...] Glucose, Serum 92 mg/dL (Normal) Range: 65-99 :48 LIPOPROTEIN, BLD, BY NMR Comments: PATIENT WAS FASTINGPERFORMED BY: [employer] [id number] BY: TCD PharmaRaritan Bay Medical Center, Old BridgeYhlhvt9001 [facility] [id number] (54105) LP-IR Score 67 (Abnormal) Comments: INSULIN RESISTANCE MARKER <--Insulin Sensitive Insulin Resistant--> Percentile in Reference PopulationInsulin Resistance ScoreLP-IR Score Low 25th 50th 75th High <27 27 45 63 >63LP-IR Score is inaccurate if patient is non-fasting. .The LP-IR score is a laboratory developed i [facility] that has beenassociated with insulin [...] High > 2000 :48 Vitamin D Hydroxy (11700) Comments: PATIENT WAS FASTINGPERFORMED BY: [employer] [id number] BY: [employer] [place]70 [facility] [id number] Vitamin D, 25-Hydroxy 43.7 ng/mL (Normal) Range: 30.0-100.0 Comments: Vitamin D deficiency has been defined by the [place] [facility] and an Endocrine Society practice guideline as alevel of serum 25-OH vitamin D less than 20 ng/mL (1,2).The Endocrine Society went on to further define vitamin Dinsufficiency as a level between 21 and 29 ng/mL (2).1. IOM ([place] of Medicine). 2010. Dietary reference intakes for calcium and D. [place]: The National Academies Press.2. Mayur MF, Scar LAWRENCE, Claribel CAMP, et al. Evaluation, treatment, and prevention of vitamin D deficiency: an Endocrine Society clinical practice guideline. JCEM. 2010; 96(7):1911-30. :48 DKECD-FFPPARLMNQW-IQGEL (63032) Comments: PATIENT WAS FASTINGPERFORMED BY: Privia Rqhrqemzwy94[address] [id number] BY: CirclePublish70 [facility] [id number] AFP, Serum, Tumor Marker 2.0 ng/mL (Normal) Range: 0.0-8.3 Comments: Jona ECLIA methodology :48 CBC with auto diff Comments: PATIENT WAS FASTINGPERFORMED BY: [employer] [id number] BY: [employer] [place]70 [facility] [id number] (22005) Immature Grans (Abs) 0.0 {x10E3/uL} (Normal) Range: [...] METABOLIC PANEL, Comments: PATIENT WAS FASTINGPERFORMED BY: LabCo[address] [id number] BY: LabCoRaritan Bay Medical Center, Old BridgeUfjyor4151 [facility] [id number] COMPREHENSIVE (09724) ALT (SGPT) 27 [iU]/L (Normal) Range: 0-32 [...] Comments: PATIENT WAS FASTINGPERFORMED BY: BN [facility] Pkthfjywbq1527 [facility] [id number] BY: CB [facility] Kqtlel5582 [facility] [id number]; non-emergent till apt next week (56459) LP-IR Score 71 (Abnormal) Comments: INSULIN RESISTANCE MARKER <--Insulin Sensitive Insulin Resistant--> Percentile in Reference PopulationInsulin Resistance ScoreLP-IR Score Low 25th 50th 75th High <27 27 45 63 >63LP-IR Score is inaccurate if patient is non-fasting. .The LP-IR score is a laboratory developed i [facility] that has beenassociated with insulin [...] Very High > 2000 :48 HGB A1C (28212) Comments: PATIENT WAS FASTINGPERFORMED BY: [employer] [id number] BY: TCD PharmaRaritan Bay Medical Center, Old BridgeYzugzr5071 [facility] [id number] Hemoglobin A1c 5.7 % (Abnormal) Range: 4.8-5.6 Comments: . Pre-diabetes: 5.7 - 6.4 Diabetes: >6.4 Glycemic control for adults with diabetes: <7.0 :48 MICROALBUMIN: CREATININE Comments: PATIENT WAS FASTINGPERFORMED BY: [employer] [id number] BY: TCD PharmaRaritan Bay Medical Center, Old BridgeHpiyww1180 [facility] [id number] RATIO (69602) AND (23622) Microalb/Creat Ratio 7.8 {mg/g_creat} (Normal) Range: 0.0-30.0 Microalbumin, Urine 5.3 ug/mL (Normal) Creatinine, Urine 68.0 mg/dL (Normal) 85-Djs-814420:11 CALCULUS CHEMICAL QUANTI Comments: PATIENT NOT FASTINGPERFORMED BY: [employer]CD [employer] [id number] Information: [id number] (35177) Please note: SPRCS (Normal) Comments: Calculi report without photograph will follow via computer, mail,or fraud prevention analyst delivery.Physician questions regarding Calculi Analysis contact [employer] at:[phone]. Nidus No Nidus visualized (Normal) Calcium phosphate 05 % (Normal) Ca oxalate monohydr. 95 % (Normal) Composition SPRCS (Normal) Comments: Percentage (Represents the % composition) Weight 14.0 mg (Normal) Size 3x3x2 mm (Normal) Color Brown (Normal) :20 Basic Metabolic Profile (BMP) Comments: [facility] U[address]awrbvv[address] [place], [place], [address] GAP 9 (Normal) Range: 5-15 CO2 25.0 [...] :20 CBC W/Diff, Automated Comments: [facility] Yljsqntvge8[address] [place], [place], [id number] Absolute Lymph 0.66 {X10_3/ul} (Abnormal) Range: 0.83-4.51 [...] Has pt arrived? YHow was Urine Obtained? [facility] Opigrfypjo3779 [place], [place], [id number] MUCUS, URINE 0 SEEN {/hpf} (Normal) BACTERIA [...] COLOR Yellow (Normal) :39 Vitamin D Hydroxy (66999) Comments: PATIENT WAS FASTINGPERFORMED BY: [facility] Jduqdx5835 [facility] [id number] Vitamin D, 25-Hydroxy 36.0 ng/mL (Normal) Range: 30.0-100.0 Comments: Vitamin D deficiency has been defined by the [place] of[place]icine and an Endocrine Society practice guideline as alevel of serum 25-OH vitamin D less than 20 ng/mL (1,2).The Endocrine Society went on to further define vitamin Dinsufficiency as a level between 21 and 29 ng/mL (2).1. IOM ([place] of Medicine). 2010. Dietary reference intakes for calcium and D. [place]: The National Academies Press.2. Mayur MF, Scar NC, Claribel CAMP, et al. Evaluation, treatment, and prevention of vitamin D deficiency: an Endocrine Society clinical practice guideline. JCEM. 2010; 96(7):1911-30. 06-Dec-20158:39 CBC W/AUTO DIFF WBC Comments: PATIENT WAS FASTINGPERFORMED BY: LabCoRaritan [facility], Old BridgePuqmlv7725 [facility] [id number] Information: [id number] (57208) Immature Grans (Abs) 0.0 {x10E3/uL} (Normal) Range: [...] PANEL, COMPREHENSIVE Comments: PATIENT WAS FASTINGPERFORMED BY: CirclePublish70 [facility] [id number] (33147) ALT (SGPT) 24 [iU]/L (Normal) Range: 0-32 [...] mg/dL (Normal) Range: 65-99 :39 LIPID PANEL (84702) Comments: PATIENT WAS FASTINGPERFORMED BY: CirclePublish70 [facility] [id number]; non-emergent till apt LDL/HDL Ratio 4.3 {ratio_units} [...] Cholesterol, Total 232 mg/dL (Abnormal) Range: 100-199 32-Ahn-61089:58 METABOLIC PANEL, COMPREHENSIVE Comments: PATIENT WAS FASTINGPERFORMED BY: [facility] Fbnpto5991 [facility] [id number] (59085) ALT (SGPT) 28 [iU]/L (Normal) Range: 0-32 [...] (Normal) Range: 65-99 :58 Vitamin D Hydroxy (88816) Comments: PATIENT WAS FASTINGPERFORMED BY: TCD PharmaRaritan Bay Medical Center, Old BridgeNsqlwv3885 [facility] [id number] Vitamin D, 25-Hydroxy 35.4 ng/mL (Normal) Range: 30.0-100.0 Comments: Vitamin D deficiency has been defined by the [place] [facility] and an Endocrine Society practice guideline as alevel of serum 25-OH vitamin D less than 20 ng/mL (1,2).The Endocrine Society went on to further define vitamin Dinsufficiency as a level between 21 and 29 ng/mL (2).1. IOM ([place] of [place]). 2010. Dietary reference intakes for calcium and D. [place]: The National Academies Press.2. Mayur MF, Scar NC, Claribel CAMP, et al. Evaluation, treatment, and prevention of vitamin D deficiency: an Endocrine Society clinical practice guideline. JCEM. 2010; 96(7):1911-30. :58 CBC W/AUTO DIFF WBC Comments: PATIENT WAS FASTINGPERFORMED BY: [facility]6370 [facility] [id number] Information: [id number] (19356) Immature Grans (Abs) 0.0 {x10E3/uL} (Normal) Range: [...] WBC 4.4 {x10E3/uL} (Normal) Range: 3.4-10.8 :58 DGRIE-VTOVEUEQCPH-TQOIK (54588) Comments: PATIENT WAS FASTINGPERFORMED BY: SignStorey LabBBC EasyRaritan Bay Medical Center, Old BridgeDookns0122 [facility] [id number] AFP, Serum, Tumor Marker 1.8 ng/mL (Normal) Range: 0.0-8.3 Comments: Jona ECLIA methodology :58 LIPID PANEL (20459) Comments: PATIENT WAS FASTINGPERFORMED BY: SignStorey LabBBC EasyRaritan Bay Medical Center, Old BridgeIddfrf8094 [facility] [id number]; non-emergent till apt LDL/HDL Ratio 5.2 {ratio_units} [...] degree relatives should be collected. J Clin Ivflvcl8451;5:133-140 LDL Cholesterol Calc 197 mg/dL (Abnormal) Range: 0-99 VLDL Cholesterol Celso 31 mg/dL (Normal) Range: 5-40 HDL Cholesterol 38 mg/dL (Abnormal) Comments: According to ATP-III Guidelines, HDL-C >59 mg/dL is considered anegative risk factor for CHD. Triglycerides 156 mg/dL (Abnormal) Range: 0-149 Cholesterol, Total 266 mg/dL (Abnormal) Range: 100-199 :46 Protein Electro, Random Urine Comments: PERFORMED BY: [employer] [facility] [id number] Please note: SPRCS (Normal) Comments: Protein electrophoresis scan will follow via computer, mail, orcourier delivery. M-Darius, % Not Observed % (Normal) Gamma Globulin, U 12.5 % (Normal) Beta Globulin, U 31.8 % (Normal) Xlgga-4-Yozcicyl, U 16.7 % (Normal) Vgyri-3-Mmpvewue, U 8.1 % (Normal) Albumin, U 30.9 % (Normal) Protein,Total,Urine <4.0 mg/dL (Normal) Range: 0.0-15.0 Comments: Verified by repeat analysis :46 Protein Electro.,S Comments: PERFORMED BY: [employer] [facility] [id number] Please note: SPRCS (Normal) Comments: Protein electrophoresis scan will follow via computer, mail, orcourier delivery. A/G Ratio 1.4 (Normal) Range: 0.7-2.0 Globulin, Total 3.1 g/dL (Normal) Range: 2.0-4.5 M-Darius Not Observed g/dL (Normal) Gamma Globulin 0.9 g/dL (Normal) Range: 0.5-1.6 Beta Globulin 1.1 g/dL (Normal) Range: 0.6-1.3 Qykak-7-Mgytacti 0.9 g/dL (Normal) Range: 0.4-1.2 Yyori-7-Thgbspyz 0.2 g/dL (Normal) Range: 0.1-0.4 Albumin 4.2 g/dL (Normal) Range: 3.2-5.6 :46 CBC W/AUTO DIFF WBC (71236) Comments: PERFORMED BY: [facility]6370 [facility] [id number] Immature Grans (Abs) 0.0 {x10E3/uL} (Normal) Range: [...] :46 METABOLIC PANEL, COMPREHENSIVE Comments: PERFORMED BY: [facility]6370 [facility] [id number] (88718) ALT (SGPT) 31 [iU]/L (Normal) Range: 0-32 [...] 80 mg/dL (Normal) Range: 65-99 :46 PARATHORMONE (23434) Comments: PERFORMED BY: ComticaCo Toenxe2513 [facility] [id number] PTH, Intact 16 pg/mL (Normal) Range: 15-65 :46 Vitamin D Hydroxy (28762) Comments: PERFORMED BY: [employer] Mbzzne1629 [facility] [place] [id number] Vitamin D, 25-Hydroxy 47.0 ng/mL (Normal) Range: 30.0-100.0 Comments: Vitamin D deficiency has been defined by the [place] of[place]icine and an Endocrine Society practice guideline as alevel of serum 25-OH vitamin D less than 20 ng/mL (1,2).The Endocrine Society went on to further define vitamin Dinsufficiency as a level between 21 and 29 ng/mL (2).1. IOM ([place] of [place]). 2010. Dietary reference intakes for calcium and D. [place]: The National Academies Press.2. Mayur MF, Scar [place], Claribel CAMP, et al. Evaluation, treatment, and prevention of vitamin D deficiency: an Endocrine Society clinical practice guideline. JCEM. 2010; 96(7):1911-30. :46 TSH (86453) Comments: PERFORMED BY: LabNativooCount includes the [facility] [id number] TSH 4.390 {uIU/mL} (Normal) Range: 0.450-4.500 :46 LIPID PANEL (04722) Comments: PERFORMED BY: LabNativooCount includes the [facility] [id number]; non-emergent till apt LDL/HDL Ratio 4.0 {ratio_units} [...] PANEL, COMPREHENSIVE Comments: PATIENT WAS FASTINGPERFORMED BY: ComticaCoMumumíoCount includes the [facility] [id number] (59188) ALT (SGPT) 23 [iU]/L (Normal) Range: 0-32 [...] DIFF WBC Comments: PATIENT WAS FASTINGPERFORMED BY: LabCoRaritan Bay [facility] Center, Old BridgeYfifym1854 [facility] [id number] Information: [id number] (60415) Immature Grans (Abs) 0.0 {x10E3/uL} (Normal) Range: [...] {x10E3/uL} (Normal) Range: 3.4-10.8 :08 LIPID PANEL (16965) Comments: PATIENT WAS FASTINGPERFORMED BY: goTennaCount includes the [facility] [id number]; non-emergent till apt LDL/HDL Ratio 4.7 {ratio_units} [...] Glutamyl Transferase) Comments: PATIENT WAS FASTINGPERFORMED BY: [employer] [facility] [id number] (41223) GGT 11 [iU]/L (Normal) Range: 0-60 :08 NMZMV-QUXRQQOMVNH-EGDFH (70850) Comments: PATIENT WAS FASTINGPERFORMED BY: Stootieox RoadDublin [place] [id number] AFP, Serum, Tumor Marker 1.6 ng/mL (Normal) Range: 0.0-8.3 Comments: Jona ECLIA methodology :08 PTT (Activated Partial Comments: PATIENT WAS FASTINGPERFORMED BY: [facility]6370 [facility] [id number] Thromboplastin Time) (06908) aPTT 27 {sec} (Normal) Range: 24-33 Comments: This test has not been validated for monitoring unfractionated heparintherapy. aPTT-based therapeutic ranges for unfractionated heparintherapy have not been established. For general guidelines onHeparin monitoring, refer to the [facility] Directory of Services. :08 PT (Prothrobim Time) (00049) Comments: PATIENT WAS FASTINGPERFORMED BY: [facility]6370 [facility] [id number] Prothrombin Time 10.8 {sec} (Normal) Range: 9.1-12.0 INR 1.0 (Normal) Range: 0.8-1.2 Comments: Reference interval is for non-anticoagulated patients. . Suggested INR therapeutic range for Vitamin K anta gonist therapy: Standard Dose (moderate intensity therapeutic range): 2.0 - 3.0 Higher intensity therapeutic range 2.5 - 3.5 :08 Vitamin D Hydroxy (16645) Comments: PATIENT WAS FASTINGPERFORMED BY: [facility]6370 [facility] [id number] Vitamin D, 25-Hydroxy 43.7 ng/mL (Normal) Range: 30.0-100.0 Comments: Vitamin D deficiency has been defined by the [place] of[place]icine and an Endocrine Society practice guideline as alevel of serum 25-OH vitamin D less than 20 ng/mL (1,2).The Endocrine Society went on to further define vitamin Dinsufficiency as a level between 21 and 29 ng/mL (2).1. IOM ([place] of [place]). 2010. Dietary reference intakes for calcium and D. [place]: The National Academies Press.2. Mayur MF, Scar LAWRENCE, Claribel CAMP, et al. Evaluation, treatment, and prevention of vitamin D deficiency: an Endocrine Society clinical practice guideline. JCEM. 2010; 96(7):1911-30. 3-Mhx-271498:17 CBC (AUTO) (54218) Comments: PATIENT WAS FASTINGPERFORMED BY: ComticaCoxhealthEbuuya5432 [facility] [id number] Platelets 159 {x10E3/uL} (Normal) Range: 150-379 RDW 13.2 % (Normal) Range: 12.3-15.4 MCHC 32.9 g/dL (Normal) Range: 31.5-35.7 MCH 29.5 pg (Normal) Range: 26.6-33.0 MCV 90 fL (Normal) Range: 79-97 Hematocrit 45.6 % (Normal) Range: 34.0-46.6 Hemoglobin 15.0 g/dL (Normal) Range: 11.1-15.9 RBC 5.09 {x10E6/uL} (Normal) Range: 3.77-5.28 WBC 4.2 {x10E3/uL} (Normal) Range: 3.4-10.8 0-Wbi-936348:17 Vitamin D Hydroxy (44070) Comments: PATIENT WAS FASTINGPERFORMED BY: ComticaCaro Center6370 [facility] [id number] Vitamin D, 25-Hydroxy 52.9 ng/mL (Normal) Range: 30.0-100.0 Comments: Vitamin D deficiency has been defined by the [place] [facility] and an Endocrine Society practice guideline as alevel of serum 25-OH vitamin D less than 20 ng/mL (1,2).The Endocrine Society went on to further define vitamin Dinsufficiency as a level between 21 and 29 ng/mL (2).1. IOM ([place] of [place]). 2010. Dietary reference intakes for calcium and D. [place]: The National Academies Press.2. Mayur WALKER, Scar LAWRENCE, Claribel CAMP et al. Evaluation, treatment, and prevention of vitamin D deficiency: an Endocrine Society clinical practice guideline. JCEM. 2010; 96(7):1911-. 9-Kjj-569403:17 METABOLIC PANEL, Comments: PATIENT WAS FASTINGPERFORMED BY: [facility]in6370 [facility] [id number] Information: [id number] [facility] (55312) ALT (SGPT) 25 [iU]/L (Normal) Range: 0-32 [...] Glucose, Serum 82 mg/dL (Normal) Range: 65-99 2-Uzi-090920:17 LIPID PANEL (39162) Comments: PATIENT WAS FASTINGPERFORMED BY: Independent IP [employer] [facility] [id number] LDL/HDL Ratio 3.8 {ratio_units} Range: 0.0-3.2 (Abnormal) [...] Negative (Normal) Comments: PATIENT NOT FASTINGPERFORMED BY: [employer] Mtlrvh5113 [facility] [id number] 418:58 EIA :58 Ova + Parasite Exam Comments: PATIENT NOT FASTINGPERFORMED BY: [employer] [facility] [id number] Result 1 NOCP (Normal) Comments: No ova, cysts, or parasites seen. Ova + Parasite Exam Final report (Normal) Comments: These results were obtained using wet preparation(s) and trichromestained smear. This test does not include testing for Cryptosporidiumparvum, Cyclospora, or Microsporidia. :58 Stool Culture Comments: PATIENT NOT FASTINGPERFORMED BY: TCD PharmaRar[facility] Center, Old BridgeZtxagf4416 [facility] [id number] Information: SRC:ST STOOL E coli Shiga Toxin EIA Negative (Normal) Result 1 NCI (Normal) Comments: No Campylobacter species isolated. Campylobacter Culture Final report (Normal) Result 1 NSS (Normal) Comments: No Salmonella or Shigella recovered. Salmonella/Shigella Screen Final report (Normal) 72-Fii-092854:58 White Blood Cells (WBC), Comments: PATIENT NOT FASTINGPERFORMED BY: [facility]CoR[facility], Old BridgeUuyiqb1815 [facility] [id number] Stool Result 1 NWBC (Normal) Comments: No white blood cells seen. White Blood Cells (WBC), Final report (Normal) Comments: Reference Range: None Seen Stool :09 CRE CREAT 0.6 mg/dL (Normal) Range: 0.6-1.0 :36 CBC WITH MANUAL DIFF Comments: PATIENT WAS FASTINGPERFORMED BY: [facility]CoR[facility], Old BridgeEhwdym6282 [facility] [id number] Information: [id number] (60894) Immature Grans (Abs) 0.0 {x10E3/uL} (Normal) Range: [...] PANEL, COMPREHENSIVE Comments: PATIENT WAS FASTINGPERFORMED BY: CirclePublish70 GlamBox [facility] HospitalNeuronetrixCount includes the [facility] [id number] (23715) ALT (SGPT) 25 [iU]/L (Normal) Range: 0-32 [...] mg/dL (Normal) Range: 65-99 :36 LIPID PANEL (15241) Comments: PATIENT WAS FASTINGPERFORMED BY: goTennaCount includes the [facility] [id number] LDL/HDL Ratio 3.4 {ratio_units} (Abnormal) Range: 0.0-3.2 LDL Cholesterol Calc 129 mg/dL (Abnormal) Range: 0-99 HDL Cholesterol 38 mg/dL (Abnormal) Comments: According to ATP-III Guidelines, HDL-C >59 mg/dL is considered anegative risk factor for CHD. VLDL Cholesterol Celso 22 mg/dL (Normal) Range: 5-40 Cholesterol, Total 189 mg/dL (Normal) Range: 100-199 Triglycerides 109 mg/dL (Normal) Range: 0-149 :36 Vitamin D Hydroxy (67303) Comments: PATIENT WAS FASTINGPERFORMED BY: Bonush Ermote3051 Lou RoadDublin [place] [id number] Vitamin D, 25-Hydroxy 55.9 ng/mL (Normal) Range: 30.0-100.0 Comments: Vitamin D deficiency has been defined by the [place] ofMedicine and an Endocrine Society practice guideline as alevel of serum 25-OH vitamin D less than 20 ng/mL (1,2).The Endocrine Society went on to further define vitamin Dinsufficiency as a level between 21 and 29 ng/mL (2).1. IOM ([place] of Medicine). 2010. Dietary reference intakes for calcium and D. [place]: The National Academies Press.2. Mayur MF, Scar NC, Claribel CAMP, et al. Evaluation, treatment, and prevention of vitamin D deficiency: an Endocrine Society clinical practice guideline. JCEM. 2010; 96(7):1911-30. :36 [id number]-UTWNIXSWLXQ-DBSBI (26783) Comments: PATIENT WAS FASTINGPERFORMED BY: Bonush Jqcowl1910 Lou Roadblin [place] [id number] AFP, Serum, Tumor Marker 1.5 ng/mL (Normal) Range: 0.0-8.3 Comments: Jona ECLIA methodology :36 PTT (Activated Partial Comments: PATIENT WAS FASTINGPERFORMED BY: SignStorey LabBBC Easyrp Jiqazi5206 Lou RoadDublin [place] [id number] Thromboplastin Time) (76584) aPTT 27 {sec} (Normal) Range: 24-33 Comments: This test has not been validated for monitoring unfractionated heparintherapy. aPTT-based therapeutic ranges for unfractionated heparintherapy have not been established. For general guidelines onHeparin monitoring, refer to the [facility] Directory of Services. :36 PT (Prothrobim Time) (78778) Comments: PATIENT WAS FASTINGPERFORMED BY: [facility]6370 [facility] [id number] Prothrombin Time 10.7 {sec} (Normal) Range: 9.1-12.0 INR 1.0 (Normal) Range: 0.8-1.2 Comments: Reference interval is for non-anticoagulated patients. . Suggested INR therapeutic range for Vitamin K anta gonist therapy: Standard Dose (moderate intensity therapeutic range): 2.0 - 3.0 Higher intensity therapeutic range 2.5 - 3.5 :50 CBC WITH MANUAL DIFF Comments: PATIENT NOT FASTINGPERFORMED BY: [facility]6370 [facility] [id number] Information: [id number] (00234) Immature Grans (Abs) 0.0 {x10E3/uL} (Normal) Range: [...] {x10E3/uL} (Normal) Range: 3.4-10.8 :50 LIPID PANEL (04856) Comments: PATIENT NOT FASTINGPERFORMED BY: [facility] PharmaR[facility], Old BridgeCzdaur0279 [facility] [id number] LDL/HDL Ratio 4.0 {ratio_units} (Abnormal) Range: 0.0-3.2 [...] PANEL, COMPREHENSIVE Comments: PATIENT NOT FASTINGPERFORMED BY: [facility] PharmaRar[facility], Old BridgeOphray7210 [facility] [id number] (02376) ALT (SGPT) 58 [iU]/L (Abnormal) Range: 0-32 [...] (Normal) Range: 65-99 :50 Vitamin D Hydroxy (62816) Comments: PATIENT NOT FASTINGPERFORMED BY: GeoMetWatchGood [facility] [id number] Vitamin D, 25-Hydroxy 46.4 ng/mL (Normal) Range: 30.0-100.0 Comments: Vitamin D deficiency has been defined by the [place] of[place]icine and an Endocrine Society practice guideline as alevel of serum 25-OH vitamin D less than 20 ng/mL (1,2).The Endocrine Society went on to further define vitamin Dinsufficiency as a level between 21 and 29 ng/mL (2).1. IOM ([place] of [place]). 2010. Dietary reference intakes for calcium and D. [place]: The National Academies Press.2. Mayur MF, Scar LAWRENCE, Claribel CAMP, et al. Evaluation, treatment, and prevention of vitamin D deficiency: an Endocrine Society clinical practice guideline. JCEM. 2010; 96(7):1911-30. 34-Hlm-289130:33 METABOLIC PANEL, COMPREHENSIVE Comments: PATIENT WAS FASTINGPERFORMED BY: CirclePublish70 Animal Cell TherapiesCount includes the [facility] [id number] (17186) ALT (SGPT) 50 [iU]/L (Abnormal) Range: 0-32 [...] Glucose, Serum 90 mg/dL (Normal) Range: 65-99 76-Bfk-108235:33 Vitamin D Hydroxy (33006) Comments: PATIENT WAS FASTINGPERFORMED BY: [facility]6370 [facility] [id number] Vitamin D, 25-Hydroxy 47.0 ng/mL (Normal) Range: 30.0-100.0 Comments: Vitamin D deficiency has been defined by the [place] of[place]icine and an Endocrine Society practice guideline as alevel of serum 25-OH vitamin D less than 20 ng/mL (1,2).The Endocrine Society went on to further define vitamin Dinsufficiency as a level between 21 and 29 ng/mL (2).1. IOM ([place] of [place]). 2010. Dietary reference intakes for calcium and D. [place]: The National Academies Press.2. Mayur MF, Scar LAWRENCE, Claribel CAMP, et al. Evaluation, treatment, and prevention of vitamin D deficiency: an Endocrine Society clinical practice guideline. JCEM. 2010; 96(7):1911-30. :33 CBC WITH MANUAL DIFF Comments: PATIENT WAS FASTINGPERFORMED BY: [facility] Cwdoqg2040 [facility] [id number] Information: [id number] (77177) Immature Grans (Abs) 0.0 {x10E3/uL} (Normal) Range: [...] 3.77-5.28 WBC 3.9 {x10E3/uL} (Normal) Range: 3.4-10.8 75-Fqn-848761:33 [id number]-FZCNQJSWKVX-UNKYL (87532) Comments: PATIENT WAS FASTINGPERFORMED BY: [facility]6370 [facility] [id number] AFP, Serum, Tumor Marker 2.1 ng/mL (Normal) Range: 0.0-8.3 Comments: Jona ECLIA methodology :33 PTT (Activated Partial Comments: PATIENT WAS FASTINGPERFORMED BY: [address] [id number] Thromboplastin Time) (96744) aPTT 26 {sec} (Normal) Range: 24-33 Comments: This test has not been validated for monitoring unfractionated heparintherapy. aPTT-based therapeutic ranges for unfractionated heparintherapy have not been established. For general guidelines onHeparin monitoring, refer to the [facility] Directory of Services. :33 PT (Prothrobim Time) (54160) Comments: PATIENT WAS FASTINGPERFORMED BY: [facility]6370 [facility] [id number] INR 1.1 (Normal) Range: 0.8-1.2 Comments: Reference interval is for non-anticoagulated patients. . Suggested INR therapeutic range for Vitamin K anta gonist therapy: Standard Dose (moderate intensity therapeutic range): 2.0 - 3.0 Higher intensity therapeutic range 2.5 - 3.5 Prothrombin Time 11.0 {sec} (Normal) Range: 9.1-12.0 :33 LIPID PANEL (31023) Comments: PATIENT WAS FASTINGPERFORMED BY: [place] 0949170 [facility] [id number] LDL/HDL Ratio 4.3 {ratio_units} (Abnormal) Range: 0.0-3.2 LDL Cholesterol Calc 170 mg/dL (Abnormal) Range: 0-99 VLDL Cholesterol Celso 26 mg/dL (Normal) Range: 5-40 HDL Cholesterol 40 mg/dL (Normal) Comments: According to ATP-III Guidelines, HDL-C >59 mg/dL is considered anegative risk factor for CHD. Triglycerides 129 mg/dL (Normal) Range: 0-149 Cholesterol, Total 236 mg/dL (Abnormal) Range: 100-199 63-Edi-57791:00 SPINE LUMBAR (ROUTINE) Radiology Report See Note [...] Hamilton M.D.April 23, 2013 at 4:48:16 PM [id number] Signed PV/PV If you are the referring physician and would like to consult with theradiologis t who provided this interpretation, please contact Leann Flynn M.D. at [phone]. If this radiologist is unavailable, youwillbe directed to another radiologist to assist. If you are a patient w ith a question regarding this report, pleasecontactyour referring physician directly. Professional Interpretation Provided By: Peach, Phone , These documents contain legally protected [...] 04/23/13 1648 by Leann Cole MDTranscribed on 04/23/130 by ITS IMPORTSign by Leann Cole MD on 04/23/13 1651 Sign by: Leann Cole MD 08-Uml-079127:43 C-REACTIVE PROTEIN (07652) Comments: PATIENT NOT FASTINGPERFORMED BY: [facility] Zogmza5926 [facility] [id number] C-Reactive Protein, Quant 0.7 mg/L (Normal) Range: 0.0-4.9 56-Erl-829627:43 SED RATE ERYTHROCYTE Comments: PATIENT NOT FASTINGPERFORMED BY: TCD [employer]arma Godacj0762 [facility] [id number] Information: [id number] (51431) Sedimentation Rate-Westergren 2 mm/h (Normal) Range: 0-40 :50 METABOLIC PANEL, COMPREHENSIVE Comments: PATIENT WAS FASTINGPERFORMED BY: CirclePublish70 [address] [facility] [id number] (36348) ALT (SGPT) 66 [iU]/L (Abnormal) Range: 0-32 [...] (Normal) Range: 65-99 :50 Vitamin D Hydroxy (45340) Comments: PATIENT WAS FASTINGPERFORMED BY: [employer] [place]70 [facility] [id number] Vitamin D, 25-Hydroxy 44.8 ng/mL (Normal) Range: 30.0-100.0 Comments: Vitamin D deficiency has been defined by the [place] of[place]icine and an Endocrine Society practice guideline as alevel of serum 25-OH vitamin D less than 20 ng/mL (1,2).The Endocrine Society went on to further define vitamin Dinsufficiency as a level between 21 and 29 ng/mL (2).1. IOM ([place] of [place]). 2010. Dietary reference intakes for calcium and D. [place]: The National AcademSecureWaters Press.2. Mayur MF, Scar LAWRENCE, Claribel CAMP, et al. Evaluation, treatment, and prevention of vitamin D deficiency: an Endocrine Society clinical practice guideline. JCEM. 2010; 96(7):1911-30. :50 LIPID PANEL (85727) Comments: PATIENT WAS FASTINGPERFORMED BY: CirclePublish70 GlamBox [facility] HospitalNeuronetrixCount includes the [facility] [id number] LDL/HDL Ratio 4.6 {ratio_units} (Abnormal) Range: 0.0-3.2 [...] MANUAL DIFF Comments: PATIENT WAS FASTINGPERFORMED BY: Interactive Fate6370 [facility] [id number] Information: [id number] (16759) Immature Grans (Abs) 0.0 {x10E3/uL} (Normal) Range: [...] of these values in the reference population. 51-Szm-46194:00 KNEE 4 OR MORE VIEWS Radiology Report [...] acute fracture. No significant joint effusion. Signed:Alli Cilnton D.O.January 13, 2013 at 10:54:29 AM [id number] Signed DS/DS If you a re the referring physician and would like to consult with theradiologist who provided this interpretation, please contact Alli Clinton D.O. at [phone]. If this radiologist is unavailable, you will [...] destructionofthese documents. Dictated on 01/13/13 1054 by Robles Garcia DOribed on 01/13/13 1059 by ITS IMPORTSign by Diego Garcia DO on 01/13/13 1100 Sign by: Diego Garcia DO 02-Jan-20139:30 METABOLIC PANEL, Comments: PATIENT WAS FASTINGPERFORMED BY: JOJO Mobule6370 GlamBox [facility] [id number] Information: [id number] COMPREHENSIVE (09077) ALT (SGPT) 50 [iU]/L (Abnormal) Range: 0-32 [...] mg/dL (Normal) Range: 65-99 :30 LIPID PANEL (67342) Comments: PATIENT WAS FASTINGPERFORMED BY: [employer] [place]70 [facility] [id number] LDL/HDL Ratio 3.7 {ratio_units} (Abnormal) Range: 0.0-3.2 LDL Cholesterol Calc 131 mg/dL (Abnormal) Range: 0-99 VLDL Cholesterol Celso 42 mg/dL (Abnormal) Range: 5-40 Cholesterol, Total 208 mg/dL (Abnormal) Range: 100-199 HDL Cholesterol 35 mg/dL (Abnormal) Comments: According to ATP-III Guidelines, HDL-C >59 mg/dL is considered anegative risk factor for CHD. Triglycerides 208 mg/dL (Abnormal) Range: 0-149 33-Oro-579926:32 Protein Electro, Random Urine Comments: PATIENT NOT FASTINGPERFORMED BY: [facility]6370 [facility] [id number] Please note: SPRCS (Normal) Comments: Protein electrophoresis scan will follow via computer, mail, orcourier delivery. Beta Globulin, U 30.6 % (Normal) Gamma Globulin, U 31.1 % (Normal) M-Darius, % Not Observed % (Normal) Uampc-3-Syqndysu, U 18.2 % (Normal) Oxjvm-4-Rylyndig, U 2.5 % (Normal) Albumin, U 17.6 % (Normal) Protein,Total,Urine 3.1 mg/dL (Normal) Range: 0.0-15.0 44-Zfb-984586:32 Protein Electro.,S Comments: PATIENT NOT FASTINGPERFORMED BY: [facility]6370 [facility] [id number] Information: SRC: URINE A/G Ratio 1.7 (Normal) Range: 0.7-2.0 Please note: SPRCS (Normal) Comments: Protein electrophoresis scan will follow via computer, mail, orcourier delivery. Globulin, Total 2.6 g/dL (Normal) Range: 2.0-4.5 M-Darius Not Observed g/dL (Normal) Beta Globulin 1.0 g/dL (Normal) Range: 0.6-1.3 Gamma Globulin 0.7 g/dL (Normal) Range: 0.5-1.6 Htutc-8-Vbjuobrj 0.1 g/dL (Normal) Range: 0.1-0.4 Sbmzf-4-Vunnmgbi 0.7 g/dL (Normal) Range: 0.4-1.2 Albumin 4.5 g/dL (Normal) Range: 3.2-5.6 Protein, Total, Serum 7.1 g/dL (Normal) Range: 6.0-8.5 89-Zyc-385883:32 YLBUZ-XQBCARSUJFA-JMSLW (35539) Comments: PATIENT NOT FASTINGPERFORMED BY: [facility]6370 [facility] [id number] AFP, Serum, Tumor Marker 1.5 ng/mL (Normal) Range: 0.0-8.3 Comments: Jona ECLIA methodology 17-Ctx-888730:32 LIPID PANEL (34441) Comments: PATIENT NOT FASTINGPERFORMED BY: [facility]6370 [facility] [id number] LDL Cholesterol Calc 132 mg/dL (Abnormal) Range: 0-99 LDL/HDL Ratio 3.5 {ratio_units} (Abnormal) Range: 0.0-3.2 HDL Cholesterol 38 mg/dL (Abnormal) Comments: According to ATP-III Guidelines, HDL-C >59 mg/dL is considered anegative risk factor for CHD. Triglycerides 160 mg/dL (Abnormal) Range: 0-149 VLDL Cholesterol Celso 32 mg/dL (Normal) Range: 5-40 Cholesterol, Total 202 mg/dL (Abnormal) Range: 100-199 79-Dcl-206706:32 PARATHORMONE (36670) Comments: PATIENT NOT FASTINGPERFORMED BY: [facility]6370 [facility] [id number] PTH, Intact 16 pg/mL (Normal) Range: 15-65 12-Kwy-808530:32 PHOSPHORUS (29057) Comments: PATIENT NOT FASTINGPERFORMED BY: [facility] Trixcp5423 [facility] [id number] Phosphorus, Serum 3.7 mg/dL (Normal) Range: 2.5-4.5 90-Jyg-940663:32 PTT (Activated Partial Comments: PATIENT NOT FASTINGPERFORMED BY: [facility] Ogcojn6967 [address] [facility] [id number] Thromboplastin Time) (23708) aPTT 25 {sec} (Normal) Range: 24-33 Comments: This test has not been validated for monitoring unfractionated heparintherapy. aPTT-based therapeutic ranges for unfractionated heparintherapy have not been established. For general guidelines onHeparin monitoring, refer to the [facility] Directory of Services. 40-Ikp-284883:32 PT (Prothrobim Time) (06229) Comments: PATIENT NOT FASTINGPERFORMED BY: [facility]6370 [facility] [id number] INR 1.0 (Normal) Range: 0.8-1.2 Comments: Reference interval is for non-anticoagulated patients. . Suggested INR therapeutic range for Vitamin K anta gonist therapy: Standard Dose (moderate intensity therapeutic range): 2.0 - 3.0 Higher intensity therapeutic range 2.5 - 3.5 Prothrombin Time 10.9 {sec} (Normal) Range: 9.1-12.0 38-Vhp-221783:01 Calcium, 24Hr Urine Comments: PERFORMED BY: [facility]6370 [facility] [id number] Information: 08/26/@830AM 08/27@830AM Calcium, Urine 24hr 208.0 {mg/24_hr} (Normal) Range: 100.0-300.0 Calcium, Urine 8.0 mg/dL (Normal) 84-Pxa-879342:35 BILAT SCRN DIGITAL & CAD Radiology Report [...] Bryan M.D.July 18, 2012 at 1:56:05 PM [id number] Signed GP/GP If you are the referring physician and would like to consult with theradiologist who provided this interpretation, please contact Nusrat Cain at [phone]. If this radiologist is unavailable, youwill be directed to another radiologist to assist. If you are a patient with a question regarding this report, pleasecontactyour referring physician directly. Professional Interpretation Provided By: Peach, Phone , Thes e documents contain legally [...] 07/18/12 1403 Sign by: Constantino Bryan MD 11-Mzv-306976:35 DEXA BONE DENSITY STUDY (HP) Radiology Report [...] at their peak bone mineraldensity. The Worl Health Organization (WHO) interprets the T-scores asfollows: [...] Bryan M.D.July 18, 2012 at 1:48:07 PM [phone] Signed GP/GP If you are the referring physician a nd would like to consult with theradiologist who provided this interpretation, please contact Nusrat Cain at [phone]. If this radiologist is unavailable, youwill be directed to another radiologist to assist. If you are a patient with a question regarding this report, pleasecontactyour referring physician directly. Professional Interpretation Provided By: Peach, Phone , These documents contain legally protected [...] 1 353 Sign by: Constantino Bryan MD 80-Aqn-92645:38 TSH (74294) Comments: PATIENT WAS FASTINGPERFORMED BY: [facility]Co[facility], Old BridgeLqdppv5300 [facility] [id number] TSH 2.950 {uIU/mL} (Normal) Range: 0.450-4.500 :38 CBC WITH MANUAL DIFF Comments: PATIENT WAS FASTINGPERFORMED BY: [facility]Co[facility], Old BridgeOooqhp3348 [facility] [id number] Information: [id number] (24534) Immature Grans (Abs) 0.0 {x10E3/uL} (Normal) Range: [...] 3.77-5.28 WBC 4.2 {x10E3/uL} (Normal) Range: 4.0-10.5 87-Coy-28421:38 METABOLIC PANEL, COMPREHENSIVE Comments: PATIENT WAS FASTINGPERFORMED BY: [facility]Co[facility], Old BridgeLadeuc3100 [facility] [id number] (83793) ALT (SGPT) 69 [iU]/L (Abnormal) Range: 0-40 [...] mg/dL (Normal) Range: 65-99 :38 LIPID PANEL (77544) Comments: PATIENT WAS FASTINGPERFORMED BY: CirclePublish70 [facility] [id number] LDL/HDL Ratio 4.6 {ratio_units} (Abnormal) Range: 0.0-3.2 LDL Cholesterol Calc 175 mg/dL (Abnormal) Range: 0-99 HDL Cholesterol 38 mg/dL (Abnormal) Comments: According to ATP-III Guidelines, HDL-C >59 mg/dL is considered anegative risk factor for CHD. VLDL Cholesterol Celso 23 mg/dL (Normal) Range: 5-40 Triglycerides 114 mg/dL (Normal) Range: 0-149 Cholesterol, Total 236 mg/dL (Abnormal) Range: 100-199 :38 Vitamin D Hydroxy (58791) Comments: PATIENT WAS FASTINGPERFORMED BY: CirclePublish70 [facility] [id number] Vitamin D, 25-Hydroxy 36.3 ng/mL (Normal) Range: 30.0-100.0 Comments: Vitamin D deficiency has been defined by the [place] of[place]icine and an Endocrine Society practice guideline as alevel of serum 25-OH vitamin D less than 20 ng/mL (1,2).The Endocrine Society went on to further define vitamin Dinsufficiency as a level between 21 and 29 ng/mL (2).1. IOM ([place] of Medicine). 2010. Dietary reference intakes for calcium and D. [place]: The National Academies Press.2. Mayur WALKER, Scar LAWRENCE, Claribel CAMP, et al. Evaluation, treatment, and prevention of vitamin D deficiency: an Endocrine Society clinical practice guideline. JCEM. 2010; 96(7):1911-30. :45 BILAT LEVONN DIGITAL & CAD Radiology Report See Note [...] IMPORTSign by Constantino Bryan MD on 07/06/11 1032 Sign by: oCnstantino Bryan MD :57 CBC WITH MANUAL DIFF Comments: PATIENT WAS FASTINGPERFORMED BY: [facility]6370 [facility] [id number] Information: [id number] (31285) Immature Grans (Abs) 0.0 {x10E3/uL} (Normal) Range: [...] PANEL, COMPREHENSIVE Comments: PATIENT WAS FASTINGPERFORMED BY: [facility], Old BridgeGpadzv3996 [facility] [id number] (92142) ALT (SGPT) 55 [iU]/L (Abnormal) Range: 0-40 [...] (Normal) Range: 65-99 04-Sep-20118:57 Vitamin D Hydroxy (72630) Comments: PATIENT WAS FASTINGPERFORMED BY: [facility]6370 [facility] [id number] Vitamin D, 25-Hydroxy 49.4 ng/mL (Normal) Range: 30.0-100.0 Comments: Vitamin D deficiency has been defined by the [place] of[place]icine and an Endocrine Society practice guideline as alevel of serum 25-OH vitamin D less than 20 ng/mL (1,2).The Endocrine Society went on to further define vitamin Dinsufficiency as a level between 21 and 29 ng/mL (2).1. IOM ([place] of [place]). 2011. Dietary reference intakes for calcium and D. [place]: The National Academies Press.2. Mayur MF, Scar [place], Claribel CAMP, et al. Evaluation, treatment, and prevention of vitamin D deficiency: an Endocrine Society clinical practice guideline. JCEM. 2011 Jayant; 96(7):1911-30. 6-:57 LIPID PANEL (44752) Comments: PATIENT WAS FASTINGPERFORMED BY: [facility]6370 [facility] [id number] LDL/HDL Ratio 3.0 {ratio_units} (Normal) Range: 0.0-3.2 [...] FUNCTION PANEL Comments: PATIENT WAS FASTINGPERFORMED BY: [facility]6370 [facility] [id number] Information: [id number] (62429) ALT (SGPT) 57 [iU]/L (Abnormal) Range: 0-40 Alkaline Phosphatase, S 73 [iU]/L (Normal) Range: 25-165 AST (SGOT) 37 [iU]/L (Normal) Range: 0-40 Bilirubin, Direct 0.12 mg/dL (Normal) Range: 0.00-0.40 Albumin, Serum 4.7 g/dL (Normal) Range: 3.5-4.8 Bilirubin, Total 0.6 mg/dL (Normal) Range: 0.0-1.2 Protein, Total, Serum 7.2 g/dL (Normal) Range: 6.0-8.5 :38 LIPID PANEL (80474) Comments: PATIENT WAS FASTINGPERFORMED BY: [facility]6370 [facility] [id number] LDL/HDL Ratio 3.4 {ratio_units} (Abnormal) Range: 0.0-3.2 LDL Cholesterol Calc 139 mg/dL (Abnormal) Range: 0-99 VLDL Cholesterol Celso 20 mg/dL (Normal) Range: 5-40 HDL Cholesterol 41 mg/dL (Normal) Comments: According to ATP-III Guidelines, HDL-C >59 mg/dL is considered anegative risk factor for CHD. Triglycerides 99 mg/dL (Normal) Range: 0-149 Cholesterol, Total 200 mg/dL (Abnormal) Range: 100-199 69-Ddd-534176:33 Vitamin D Hydroxy (04367) Comments: PATIENT NOT FASTINGPERFORMED BY: [facility] Bfyqdq5958 [facility] [id number] Vitamin D, 25-Hydroxy 42.6 ng/mL (Normal) Range: 32.0-100.0 Comments: Effective June 19, 2011 Vitamin D, 25-Hydroxy reference intervals will be changing to 30-100. .Recent studies consider the lower li vince of 32.0 ng/mL to be athreshold for optimal health.Kamari ALLEN. J Nutr. 2004;135(2):317-22. 46-Ctc-220445:33 CBC WITH MANUAL DIFF Comments: PATIENT NOT FASTINGPERFORMED BY: [facility] Ugpfax0771 [facility] [id number] Information: [id number] , NO DRAW FEE (77180) Immature Grans (Abs) 0.0 {x10E3/uL} (Normal) Range: [...] 3.80-5.10 WBC 4.6 {x10E3/uL} (Normal) Range: 4.0-10.5 :10 Metabolic Panel, Basic (76735) Comments: PATIENT NOT FASTINGPERFORMED BY: goTennaCount includes the [facility] [id number] Calcium, Serum 9.6 mg/dL (Normal) Range: 8.6-10.2 [...] Glucose, Serum 86 mg/dL (Normal) Range: 65-99 :10 CBC with manual diff Comments: PATIENT NOT FASTINGPERFORMED BY: [employer] Oddlme7238 Lou [facility] HospitalNeuronetrixCount includes the [facility] [id number] Information: [id number] (06765) Baso (Absolute) 0.0 {x10E3/uL} (Normal) Range: 0.0-0.2 [...] {x10E3/uL} (Abnormal) Range: 4.0-10.5 :07 LIPID PANEL (15240) Comments: PATIENT WAS FASTINGPERFORMED BY: [facility]CoR[facility], Old BridgeFogzuy1426 [facility] [id number] LDL/HDL Ratio 6.9 {ratio_units} (Abnormal) Range: 0.0-3.2 LDL Cholesterol Calc 254 mg/dL (Abnormal) Range: 0-99 VLDL Cholesterol Celso 29 mg/dL (Normal) Range: 5-40 HDL Cholesterol 37 mg/dL (Abnormal) Comments: According to ATP-III Guidelines, HDL-C >59 mg/dL is considered anegative risk factor for CHD. Cholesterol, Total 320 mg/dL (Abnormal) Range: 100-199 Triglycerides 144 mg/dL (Normal) Range: 0-149 :07 Vitamin D Hydroxy (07320) Comments: PATIENT WAS FASTINGPERFORMED BY: Interactive Fate6370 [facility] [id number] Vitamin D, 25-Hydroxy 27.8 ng/mL (Abnormal) Range: 32.0-100.0 Comments: Recent studies consider the lower limit of 32.0 ng/mL to be athreshold for optimal health.Kamari ALLEN. J Nutr. 2004;135(2):317-22. :07 METABOLIC PANEL, COMPREHENSIVE Comments: PATIENT WAS FASTINGPERFORMED BY: SignStorey LabCoNodePrimeArieaj9123 Animal Cell TherapiesCount includes the [facility] [id number] (73409) ALT (SGPT) 61 [iU]/L (Abnormal) Range: 0-40 [...] Glucose, Serum 77 mg/dL (Normal) Range: 65-99 55-Aox-68545:07 CBC WITH MANUAL DIFF Comments: PATIENT WAS FASTINGPERFORMED BY: LabCaro Center6370 [facility] [id number] Information: [id number] (15052) Immature Grans (Abs) 0.0 {x10E3/uL} (Normal) Range: [...] (Normal) Range: 4.0-10.5 :57 Vitamin D Hydroxy (38888) Comments: PATIENT WAS FASTINGPERFORMED BY: CirclePublish70 Public [facility] [id number] Vitamin D, 25-Hydroxy 62.8 ng/mL (Normal) Range: 32.0-100.0 Comments: Recent studies consider the lower limit of 32.0 ng/mL to be athreshold for optimal health.Kamari ALLEN. J Nutr. 2004;135(2):317-22. :57 LIPID PANEL (31057) Comments: PATIENT WAS FASTINGPERFORMED BY: Interactive Fate6370 Animal Cell TherapiesCount includes the [facility] [id number] HDL Cholesterol 39 mg/dL (Abnormal) Comments: According [...] PANEL, COMPREHENSIVE Comments: PATIENT WAS FASTINGPERFORMED BY: Interactive Fate6370 [facility] [id number] (70281) Alkaline Phosphatase, S 74 [iU]/L (Normal) Range: [...] MANUAL DIFF Comments: PATIENT WAS FASTINGPERFORMED BY: LabCoRar[facility], Old BridgeXpicwy0242 [facility] [id number] Information: [id number] (77511) Immature Grans (Abs) 0.0 {x10E3/uL} (Normal) Range: [...] WBC 4.0 {x10E3/uL} (Normal) Range: 4.0-10.5 02-May-20108:39 [facility] DIGITAL & CAD Radiology Report See Note (Normal) Comments: Exam Number: [id number] AMMOGRAPHY - BILATERAL SCREENING INDICATION:Routine annual screening [...] of attaching a ResultCode to this exam.ADDENDUM: [id number] HPBI/MDS Reported By: LEANN CHAUDHARI M.D. :49 Vitamin D Hydroxy (09133) Comments: PATIENT NOT FASTINGPERFORMED BY: ComticaCaro Center6370 [facility] [id number] Vitamin D, 25-Hydroxy 48.8 ng/mL (Normal) Range: 32.0-100.0 Comments: Recent studies consider the lower limit of 32.0 ng/mL to be athreshold for optimal health.Kamari ALLEN. J Nutr. 2004;135(2):317-22. :49 LIPID PANEL (74398) Comments: PATIENT NOT FASTINGPERFORMED BY: ComticaCoxhealthDtptrn3934 [facility] [id number] LDL Cholesterol Calc 136 mg/dL (Abnormal) Range: [...] PANEL, COMPREHENSIVE Comments: PATIENT NOT FASTINGPERFORMED BY: [facility]6370 [facility] [id number] (20886) Alkaline Phosphatase, S 75 [iU]/L (Normal) Range: [...] Glucose, Serum 88 mg/dL (Normal) Range: 65-99 72-Omg-52807:49 CBC WITH MANUAL DIFF Comments: PATIENT NOT FASTINGPERFORMED BY: [facility] Kndfid9158 [facility] [id number] Information: [id number] (54321) Immature Grans (Abs) 0.0 {x10E3/uL} (Normal) Range: [...] 3.80-5.10 WBC 3.7 {x10E3/uL} (Abnormal) Range: 4.0-10.5 64-Vpw-64632:17 DEXA BONE DENSITY STUDY (HP) Radiology Report See Note (Normal) Comments: Exam Number: [id number] CLINICAL:This is a 69-year-old female patient with history osteopenia. EXAMINATION:DUAL ENERGY X-RAY ABSORPTIOMETRY / DEXA. TECHNIQUE:Bone Density Measurements (BMD) of lumbar spi ne and bilateral hipswere obtained using a GraphOn scanner.. COMPARISON:Comparison is made with prior study [...] Osteoporosis Foundation http://www.nof.org Reported By: CONSTANTINO BRYAN 75-Zqd-68915:23 CBC WITH MANUAL DIFF Comments: PATIENT WAS FASTINGPERFORMED BY: [facility]6370 [facility] [id number] Information: [id number] (22876) Immature Grans (Abs) 0.0 {x10E3/uL} (Normal) Range: [...] (Abnormal) Range: 4.0-10.5 :23 Vitamin D Hydroxy (73527) Comments: PATIENT WAS FASTINGPERFORMED BY: Interactive Fate6370 [facility] [id number] Vitamin D, 25-Hydroxy 28.0 ng/mL (Abnormal) Range: 32.0-100.0 Comments: Recent studies consider the lower limit of 32.0 ng/mL to be athreshold for optimal health.Kamari ALLEN. J Nutr. 2004;135(2):317-22. :23 METABOLIC PANEL, COMPREHENSIVE Comments: PATIENT WAS FASTINGPERFORMED BY: Interactive Fate6370 [facility] [id number] (40677) Alkaline Phosphatase, S 80 [iU]/L (Normal) Range: [...] mg/dL (Normal) Range: 65-99 :23 LIPID PANEL (18720) Comments: PATIENT WAS FASTINGPERFORMED BY: CirclePublish70 [facility] [id number] HDL Cholesterol 39 mg/dL (Abnormal) Comments: According [...] PANEL, COMPREHENSIVE Comments: PATIENT WAS FASTINGPERFORMED BY: Checkmarxlin6370 [facility] [id number] (30838) Alkaline Phosphatase, S 83 [iU]/L (Normal) Range: [...] Glucose, Serum 87 mg/dL (Normal) Range: 65-99 51-Dbk-80339:34 CBC WITH MANUAL DIFF Comments: PATIENT WAS FASTINGPERFORMED BY: [facility]CoR[facility], Old BridgeLnzpbt6783 [facility] [id number] Information: [id number] (95102) Baso (Absolute) 0.0 {x10E3/uL} (Normal) Range: 0.0-0.2 [...] FUNCTION PANEL Comments: PATIENT WAS FASTINGPERFORMED BY: [place] Ndwxve1379 [facility] [id number] (23294) Bilirubin, Direct 0.11 mg/dL (Normal) Range: 0.00-0.40 :34 LIPID PANEL (52533) Comments: PATIENT WAS FASTINGPERFORMED BY: CirclePublish70 [facility] [id number] HDL Cholesterol 39 mg/dL (Abnormal) Comments: According to ATP-III Guidelines, HDL-C >59 mg/dL is considered anegative risk factor for CHD. LDL Cholesterol Calc 139 mg/dL (Abnormal) Range: 0-99 LDL/HDL Ratio 3.6 {ratio_units} (Abnormal) Range: 0.0-3.2 Triglycerides 101 mg/dL (Normal) Range: 0-149 VLDL Cholesterol Celso 20 mg/dL (Normal) Range: 5-40 Cholesterol, Total 198 mg/dL (Normal) Range: 100-199 2-Jcf-815722:13 CBC With Differential/Platelet Comments: PATIENT WAS FASTINGPERFORMED BY: TCD PharmaRaritan Bay Medical Center, Old BridgeRigzem8907 [facility] [id number] Baso (Absolute) 0.0 {x10E3/uL} (Normal) Range: 0.0-0.2 [...] Panel (14) Comments: PATIENT WAS FASTINGPERFORMED BY: TCD PharmaRaritan Bay Medical Center, Old BridgeCootfa4904 [facility] [id number] A/G Ratio 2.0 (Normal) Range: 1.1-2.5 Albumin, [...] Sodium, Serum 146 mmol/L (Abnormal) Range: 135-145 0-Gdl-314805:13 Lipid Panel With LDL/HDL Comments: PATIENT WAS FASTINGPERFORMED BY: LabCoR[facility], Old BridgeSvsdhb6617 [facility] [id number] Ratio Cholesterol, Total 210 mg/dL (Abnormal) Range: [...] ng/mL (Normal) Comments: PATIENT WAS FASTINGPERFORMED BY: LabCoRar[facility], Old BridgePvscha9087 Carmine Kirk MD [id number] :13 Range: 32.0-100.0 Comments: Recent studies consider the lower limit of 32.0 ng/mL to be athreshold for optimal health.Kamari ALLEN. J Nutr. 2004;135(2):317-22. 82-Dcf-44651:42 BILAT SCRN DIGITAL & CAD Radiology Report See Note (Normal) Comments: Exam Number: [id number] MAMMOGRAM, BILATERAL SCREENING DIGITAL AND CAD HISTORYRoutine [...] werealso examined with computer-aided detection softw are ([employer] Reported By: LEANN CHAUDHARI M.D. 85-Zaa-056554:25 SPLEEN (HP) Radiology Report See Note (Normal) Comments: Exam Number: [id number] CLINICAL:Elevated liver enzymes and polycythemia. LIMITED ABDOMINAL [...] quadrant ultrasound. Reported By: ELSIE MCNEAL M.D. 05-Cke-827210:24 LIVER (HP) Radiology Report See Note (Normal) Comments: Exam Number: [id number] CLINICAL:Elevated liver enzymes and polycythemia. LIMITED ABDOMINAL [...] of splenomegaly. Reported By: ELSIE MCNEAL M.D. 91-Ryf-70978:56 CBC With Differential/Platelet Comments: PERFORMED BY: MUÑOZ LabBBC Easy QSU2280 [facility] [id number] Baso (Absolute) 0.0 {x10E3/uL} (Normal) Range: 0.0-0.2 [...] 11.7-15.0 WBC 3.0 {x10E3/uL} (Abnormal) Range: 4.0-10.5 47-Sqa-34114:56 Comp. Metabolic Panel (14) Comments: PERFORMED BY: WANDA LabCo ZJD7169 [facility] [id number] A/G Ratio 2.0 (Normal) Range: 1.1-2.5 Albumin, [...] :56 Erythropoietin (EPO), Serum Comments: PERFORMED BY: [email or web address] [id number] [facility] [id number] Erythropoietin 13.2 m[iU]/mL (Normal) Range: 4.2-27.8 :56 Hepatic Function Panel (7) Comments: PERFORMED BY: [email or web address] [id number] [facility] [id number] Bilirubin, Direct 0.15 mg/dL (Normal) Range: 0.00-0.40 :56 JAK2 V617F Mutation Detection Comments: PERFORMED BY: [email or web address] [id number] [facility] [id number] JAK2 V617F mutation JAK2N (Normal) Comments: Result: NEGATIVE for the JAK2 V617F mutation. .Interpretation: The G to T nucleotide change encoding the Z043Vontsrlee wa s not detect detection ed. This [...] all patientswith these disorders. .Tammie Hess, PhD, [facility] Director, Molecular Genetics LabFreeman Heart Institute [facility] [place], [place] .JAK2 is a cytoplasmic tyrosine kinase with a jackson role in signaltra nsduction from multiple hematopoietic growth factor receptors. Apoint mutation within exon 14 of the JAK2 gene (R4239K) encoding avaline to phenylalanine substitution at position 617 of the ZKZ0wzgqvvn (V617F) has been identified in most patients [...] mutationin a background of non-mutant cells. .Reference:Ayesha Jeter and Brayden RUIZ. The JAK2 V617F Tyrosine Kinase Mutationin Myeloproliferative Disorders: Status Report and ImmediateImplications for Disease Classification and Diagnosis. Gleason Clin Wlml0144;80(7):947-958. . LDH 221 [iU]/L Comments: PERFORMED BY: [email or web address] [id number] [facility] [id number] :56 (Normal) Range: 100-250 :56 Lipid Panel With LDL/HDL Comments: PERFORMED BY: [email or web address] HCB7705 [facility] [id number] Ratio Cholesterol, Total 203 mg/dL (Abnormal) Range: [...] D, 25-Hydroxy 22.3 ng/mL Comments: PERFORMED BY: [email or web address] KLY5078 [facility] [id number] :56 (Abnormal) Range: 32.0-100.0 Comments: Recent studies consider the lower limit of 32.0 ng/mL to be athreshold for optimal health.Benites ALEJANDRO. J Nutr. 2004;135(2):317-22. 2-Alr-549576:06 CBCD,SMEAR DIFF CELLS COUNTED 100 (Normal) EOS [...] 47-70 WBC 3.7 K/mm3 (Abnormal) Range: 4.4-11.0 7-Krz-922295:06 LDH 205 U/L (Abnormal) Range: 100-190 1-Bol-007777:06 LIVER ALB 4.2 g/dL (Normal) Range: 3.4-5.0 [...] 7.35-7.45 sO2 96.0 % (Normal) Range: 95-99 :48 CBC WITH MANUAL DIFF (26438) Comments: PATIENT WAS FASTINGClinical Information: ADD DRAW FEE [id number] PERFORMED BY: LabCoR[facility], Old BridgeFcmjcd6762 [facility] [id number] Baso (Absolute) 0.0 {x10E3/uL} (Normal) Range: 0.0-0.2 [...] FUNCTION PANEL Comments: PATIENT WAS FASTINGPERFORMED BY: CirclePublish70 [facility] [id number] (44327) Albumin, Serum 4.7 g/dL (Normal) Range: 3.6-4.8 Alkaline Phosphatase, S 85 [iU]/L (Normal) Range: 25-165 ALT (SGPT) 45 [iU]/L (Abnormal) Range: 0-40 AST (SGOT) 32 [iU]/L (Normal) Range: 0-40 Bilirubin, Direct 0.13 mg/dL (Normal) Range: 0.00-0.40 Bilirubin, Total 0.5 mg/dL (Normal) Range: 0.1-1.2 Protein, Total, Serum 7.1 g/dL (Normal) Range: 6.0-8.5 :48 LIPID PANEL (88028) Comments: PATIENT WAS FASTINGPERFORMED BY: Interactive Fate6370 [facility] [id number] Cholesterol, Total 194 mg/dL (Normal) Range: 100-199 [...] Random Urine Comments: PATIENT WAS FASTINGPERFORMED BY: Interactive Fate6370 [facility] [id number] Albumin, U 27.1 % (Normal) Uqdgl-1-Dknesjno, U 3.7 % (Normal) Tuory-6-Kfaamobm, U 25.2 % (Normal) Beta Globulin, U 28.3 % (Normal) Gamma Globulin, U 15.7 % (Normal) M-Darius, % Not Observed % (Normal) Please note: SPRCS (Normal) Comments: Protein electrophoresis scan will follow via mail or fraud prevention analyst. Protein,Total,Urine 7.8 mg/dL (Normal) Range: 0.0-15.0 :21 Protein Electro.,S Comments: PATIENT WAS FASTINGPERFORMED BY: [employer] Vvrzye7186 [facility] [id number] A/G Ratio 1.3 (Normal) Range: 0.7-2.0 Albumin 4.0 g/dL (Normal) Range: 3.2-5.6 Hqnyx-7-Fwzehnsg 0.2 g/dL (Normal) Range: 0.1-0.4 Rksus-9-Gveeefxl 0.8 g/dL (Normal) Range: 0.4-1.2 Beta Globulin 1.1 g/dL (Normal) Range: 0.6-1.3 Gamma Globulin 1.0 g/dL (Normal) Range: 0.5-1.6 Globulin, Total 3.1 g/dL (Normal) Range: 2.0-4.5 M-Darius Not Observed g/dL (Normal) Please note: SPRCS (Normal) Comments: Protein electrophoresis scan will follow via mail or fraud prevention analyst. :21 VITAMIN B-12 (CYANOCOBALAMIN) Comments: PATIENT WAS FASTINGPERFORMED BY: Independent IP Locsqj6994 [facility] [id number] (09588) Vitamin B12 416 pg/mL (Normal) Range: 211-911 :21 CBC WITH MANUAL DIFF (46475) Comments: PATIENT WAS FASTINGPERFORMED BY: Independent IPRaritan Bay Medical Center, Old BridgeHhkakj4391 [facility] [id number] Baso (Absolute) 0.0 {x10E3/uL} (Normal) Range: 0.0-0.2 [...] 11.7-15.0 WBC 3.2 {x10E3/uL} (Abnormal) Range: 4.0-10.5 98-Pfy-67666:21 METABOLIC PANEL, COMPREHENSIVE Comments: PATIENT WAS FASTINGPERFORMED BY: LabCoRar[facility], Old BridgeDdtycw1914 [facility] [id number] (20340) A/G Ratio 1.8 (Normal) Range: 1.1-2.5 Albumin, [...] Serum 88 mg/dL (Normal) Range: 65-99 If -Ugandan >60 mL/min/1.73 Range: 60-128 (Normal) Comments: Note: [...] Sodium, Serum 143 mmol/L (Normal) Range: 135-145 :21 HEPATIC FUNCTION PANEL Comments: PATIENT WAS FASTINGPERFORMED BY: LabBBC EasyRaritan Bay Medical Center, Old BridgeDmlsmq0940 [facility] [id number] (20405) Bilirubin, Direct 0.14 mg/dL (Normal) Range: 0.00-0.40 :21 LIPID PANEL (21031) Comments: PATIENT WAS FASTINGPERFORMED BY: LabCoRar[facility], Old BridgeEydqkn3688 [facility] [id number] Cholesterol, Total 196 mg/dL (Normal) Range: 100-199 [...] Report See Note (Normal) Comments: Exam Number: [id number] MAMMOGRAM, BILATERAL SCREENING DIGITAL AND CAD HISTORYRoutine screening. Full field digital images were obtained in mediolateral oblique andcraniocaudal projections. CAD images w ere reviewed. The current study is compared to the examinations of April,,and October,, from [facility] in [place], [place]. There is moderately dense fibroglandular parenchyma [...] mammograms werealso examined with computer-aided detection software ([employer].). Reported By: LEANN CHAUDHARI M.D. 08-Sif-19200:40 DEXA BONE DENSITY STUDY () Radiology Report See Note (Normal) Comments: Exam Number: [id number] BONE DENSITOMETRY HISTORYPostmenopausal. TECHNIQUE Bone densitometry of the lumbar spine and left hip was performed. Thebest criteria for evaluation of osteoporosis is the T- value, whichrepresents the comparison of the patient's bone mass to an expectedpeak bone mass. For most patients, the mean T-value of L1 through L4is used to evaluate the lumbar spine. Based on the [place] WorldHealth Organization classifications, the hip is [...] Report See Note (Normal) Comments: Exam Number: [id number] CERVICAL SPINE 5 VIEWS - AP, LATERAL, [...] change noted in the lungs. Reported By: BENJA RILEY M.D. :57 L/S SPINE,MIN 4 VIEWS Radiology Report See Note (Normal) Comments: Exam Number: [id number] LUMBAR SPINE 5 VIEWS - AP, LATERAL, [...] IMPRESSIONMild disc disease, see above. Reported By: BENJA RILEY M.D. :56 CERV SPINE,MIN 4 VIEWS Radiology Report See Note (Normal) Comments: Exam Number: [id number] CERVICAL SPINE 5 VIEWS - AP, LATERAL, [...] change noted in the lungs. Reported By: BENJA RILEY M.D. 10-Zou-92682:31 MYOCARD PERF SPECT REST/STRESS Radiology Report See Note (Normal) Comments: Exam Number: [id number] MYOCARDIAL PERFUSION SCAN 12 millicuries of Tc99m sestamibi was injected at rest. The patientthen exercised according to the Ayo protocol for a total duration of7 [facility] 105% of the maximum predicted heart rate at a workload of 8.5 METs. At peak exercise, 34.7 millicuries of Fb92yarniinxiw was injected. Stress images were then obtained. [...] ejection fraction. Reported By: BARI MOSLEY M.D. 24-Xtp-022068:33 TSH (01028) Comments: PATIENT WAS FASTINGPERFORMED BY: goTennaCount includes the [facility] [id number] TSH 1.738 {uIU/mL} (Normal) Range: 0.350-5.500 Comments: Adult TSH concentrations below 5.5 uIU/mL do not rule out the presence of subclinical hypothyroidism. 54-Exs-864973:33 CBC WITH MANUAL DIFF (57995) Comments: PATIENT WAS FASTINGClinical Information: ADD DRAW FEE [id number] ADD J 92160 PERFORMED BY: goTennaCount includes the [facility] [id number] Baso (Absolute) 0.0 {x10E3/uL} (Normal) Range: 0.0-0.2 [...] 11.7-15.0 WBC 3.9 {x10E3/uL} (Abnormal) Range: 4.0-10.5 38-Mca-288859:33 METABOLIC PANEL, COMPREHENSIVE Comments: PATIENT WAS FASTINGPERFORMED BY: LabCoRaritan [facility], Old BridgeXhcmgv8574 [facility] [id number] (81243) A/G Ratio 2.0 (Normal) Range: 1.1-2.5 Albumin, [...] Serum 81 mg/dL (Normal) Range: 65-99 If -Ugandan >60 mL/min (Normal) Range: 60-128 Comments: Note: [...] Sodium, Serum 140 mmol/L (Normal) Range: 135-145 09-Cjb-353013:33 LIPID PANEL (24883) Comments: PATIENT WAS FASTINGPERFORMED BY: LabCoRaritan [facility], Old BridgeXfwdeu3096 [facility] [id number] Cholesterol, Total 344 mg/dL (Abnormal) Range: 100-199 Comment SPRCS (Normal) Comments: If initial LDL-cholesterol result is >100 mg/dL, assess forrisk factors. HDL Cholesterol 38 mg/dL (Abnormal) Range: 40-59 LDL Cholesterol Calc 257 mg/dL (Abnormal) Range: 0-99 LDL/HDL Ratio 6.8 {ratio_units} (Abnormal) Range: 0.0-3.2 Triglycerides 243 mg/dL (Abnormal) Range: 0-149 VLDL Cholesterol Celso 49 mg/dL (Abnormal) Range: 5-40 34-Bcz-393271:47 FINGER(S),MIN 2 VIEWS Radiology Report See Note (Normal) Comments: Exam Number: [id number] LEFT THUMB, 3 VIEWS STATEMENTPain. COMPARISON STUDYWrist [...] rounded andcorticated. Reported By: RAGHAV SINGLETARY M.D. 38-Plt-537891:47 WRIST,MIN 3 VIEWS Radiology Report See Note (Normal) Comments: Exam Number: [id number] LEFT WRIST, 3 VIEWS STATEMENTWrist pain. There [...] GLU 2 HR GLU GTT-2 HOUR from 0:M48320S. 30 Range: 70-120 : GLU GTT-1 HOUR 116 mg/dL (Abnormal) Comments: 2HR GTT GLU 1 HR GLU GTT-1 HOUR from 0:I03047W. 32 Range: 120-170 : GLU GTT-30 min. 125 mg/dL (Normal) Comments: 2HR GTT GLU 1/2 HR GLU GTT-30 min. from 329:K05912T. 02 Range: 110-170 : C-REACTIVE PROT 9.22 mg/L (Abnormal) Range: 0.0-6.0 Comments: Test performed using the Dimension C-Reactive [...] Comments: 2HR GTT FASTING GLU GTT-FASTING from 0330:S11967I. Range: 70-110 Comments: GLUCOSE TOLERANCE TEST Reference Interval Non- Adults Fasting 70 - 110 30 minutes 110 - 170 1 hour 120 - 170 2 hour 70 - 120 3 hour 70 - 110 4 hour 70 - 110 5 hour 70 - 110 5-Tul-481251:00 CULTURE, STOOL See Note (Normal) Comments: No Salmonella, Shigella, E. coli 0157:H7, Yersinia orCampylobacter isolated. No significant amount ofStaphylococcus aureus or yeast-like organisms isolated. 6-Hdl-506208:00 O AND P See Note (Normal) Comments: OVA AND PARASITES EXAM, ROUTINE These results were obtained using wet preparation(s) and trichrome stained smear. This test does not include testing for Crytosporidium parvum, Cyclospora, or Microspo ridia. TESTING PERFORMED AT [facility]. ORIGINAL REPORT ON FILE IN LAB [...] :03 TSH 2.32 {uIU/mL} (Normal) Range: 0.34-4.82 8-Znw-606432:30 C DIF See Note (Normal) Comments: C. DIFF TOXINS A&B NEGATIVE 2-Vhj-742514:30 C DIF See Note (Normal) Comments: C. [...] Diarrhea Planned Observations CBC with auto diff (13620)Indication: Elevated hemoglobin A1c On: :07 Request METABOLIC PANEL, COMPREHENSIVE (85380)Indication: Elevated hemoglobin A1c On: :07 Request HGB A1C (29577)Indication: Elevated hemoglobin A1c On: 32-Cda-785270:07 Request LIPID PANEL (65574)Indication: Hypercholesteremia On: :07 Request AKMFR-YIZBCYIKKVO-BJLVN (57201)Indication: Fatty liver On: 68-Ggv-871790:07 Request CBC W/AUTO DIFF WBC (36423)Indication: Benign essential hypertension On: 23-Qzq-67948:11 Request METABOLIC PANEL, COMPREHENSIVE (10787)Indication: Benign essential hypertension On: 15-Rtb-29154:11 Request NPCFV-HQNHLWJLVEY-OLDCY (72619)Indication: Fatty liver On: 59-Ovu-97551:11 Request UPEP (40457)Indication: Osteopenia On: 58-Und-098422:50 Request SPEP (77866)Indication: Osteopenia On: 70-Ngu-517765:50 Request TSH (72392)Indication: Diarrhea On: :33 Request CBC WITH MANUAL DIFF (99132)Indication: Diarrhea On: :33 Request METABOLIC PANEL, COMPREHENSIVE (03676)Indication: Diarrhea On: :33 Request RU CULTURE-STOOL (89339)Indication: Diarrhea On: 95-Bdu-436609:05 Request OVA & PARASITE DIR SMEAR (25481)Indication: Diarrhea On: 92-Ztt-481417:04 Request LEUKOCYTE COUNT, FECAL (55863)Indication: Diarrhea On: 15-Ctm-485240:04 Request C-DIFFICILE, STOOL (86704)Indication: Diarrhea On: 07-Ykr-952215:04 Request UPEP (03170)Indication: Osteopenia On: 74-Nlm-088440:19 Request SPEP (82495)Indication: Osteopenia On: 40-Ljs-016647:19 Request TSH (04125)Indication: Vitamin D deficiency, unspecified On: 89-Ptu-196752:32 Request UPEP (75268)Indication: Vitamin D deficiency, unspecified On: 23-Tfs-551872:31 Request SPEP (61654)Indication: Vitamin D deficiency, unspecified On: 84-Bzv-673932:31 Request URINE CALCIUM KAIA TIMED 24 Hour (35098)Indication: Vitamin D deficiency, unspecified On: 13-Nxd-255176:31 Request PARATHORMONE (22644)Indication: Vitamin D deficiency, unspecified On: 09-Ncf-583916:31 Request PHOSPHORUS (18902)Indication: Vitamin D deficiency, unspecified On: 46-Hhk-886865:31 Request Vitamin D Hydroxy (20918)Indication: Vitamin D deficiency, unspecified On: 39-Myn-116603:31 Request Vitamin D Hydroxy (09185)Indication: Vitamin D deficiency, unspecified On: 29-Lnc-786876:50 Request CBC WITH MANUAL DIFF (01207)Indication: Hypercholesteremia On: 93-Mch-307415:50 Request METABOLIC PANEL, COMPREHENSIVE (29621)Indication: Hypercholesteremia On: 07-Deo-545951:49 Request CBC WITH MANUAL DIFF (97365)Indication: Polycythemia, secondary On: :08 Request METABOLIC PANEL, COMPREHENSIVE ([id number])Indication: Migraine On: :08 Request Vitamin D Hydroxy ([id number])Indication: Vitamin D deficiency, unspecified On: :08 Request LIPID PANEL ([id number])Indication: Hypercholesteremia On: :08 Request BMJGG-ZVGNMOKEMPW-CINCR ([id number])Indication: Fatty liver On: :08 Request PT (Prothrobim Time) ([id number])Indication: Fatty liver On: :07 Request PTT (Activated Partial Thromboplastin Time) ([id number])Indication: Fatty liver On: 47-Kkz-927310:07 Request LIPID PANEL ([id number])Indication: Hypercholesteremia On: 23-Rua-241447:33 Request METABOLIC PANEL, COMPREHENSIVE ([id number])Indication: Fatty liver On: 78-Uju-289811:32 Request Vitamin D Hydroxy ([id number])Indication: Vitamin D deficiency, unspecified On: 05-Arw-858926:16 Request CBC WITH MANUAL DIFF ([id number])Indication: Leukopenia, unspecified type On: 78-Swq-644217:13 Request METABOLIC PANEL, COMPREHENSIVE ([id number])Indication: Osteopenia On: 31-Xsm-884519:39 Request Vitamin D Hydroxy ([id number])Indication: Osteopenia On: 36-Fue-792888:39 Request CBC WITH MANUAL DIFF ([id number])Indication: Leukopenia, unspecified type On: 32-Yik-213462:39 Request HEPATIC FUNCTION PANEL ([id number])Indication: Hypercholesteremia On: 77-Qaz-690088:39 Request LIPID PANEL ([id number])Indication: Hypercholesteremia On: 92-Dvq-798636:39 Request LDH (LD) (LACTATE DEHYDROGENASE) ([id number]) On: 1-Ztw-663852:24 Request CBC WITH MANUAL DIFF ([id number])Indication: Leukopenia, unspecified type On: 5-Irs-282669:24 Request Urine Protein Electrophoresis (UPEP) ([id number])Indication: elevated albumin On: :38 Request Serum Protein Electrophoresis (SPEP) ([id number])Indication: elevated albumin On: 10-Idn-140265:38 Request CBC WITH MANUAL DIFF ([id number]) On: :38 Request METABOLIC PANEL, COMPREHENSIVE ([id number])Indication: Hypercholesteremia On: :45 Request LIPID PANEL ([id number])Indication: Hypercholesteremia On: :45 Request CBC WITH MANUAL DIFF ([id number])Indication: Leukopenia, unspecified type On: :45 Request C-Reactive Protein ([id number])Indication: Leukopenia, unspecified type On: :51 Request Sed Rate Erythrocyte ([id number])Indication: Leukopenia, unspecified type On: :51 Request GLUCOSE TOLERANCE TEST (GTT) 2 hour ([id number])Indication: Family history of diabetes mellitus On: 20-Vlo-357893:47 Request CBC with manual diff ([id number])Indication: Leukopenia, unspecified type On: :46 Request LIPID PANEL ([id number])Indication: Hypercholesteremia On: 85-Ckm-008585:43 Request Comments: in 6 months TSH ([id number])Indication: Diarrhea On: 1-Mhp-337611:00 Request Metabolic Panel, Comprehensive ([id number])Indication: Blood in stool On: 9-Abm-532844:56 Request URINALYSIS W/O MICRO ([id number])Indication: Blood in stool On: 7-Jtd-309554:49 Request Sed Rate Erythrocyte ([id number])Indication: Blood in stool On: 6-Nxd-490274:49 Request CBC (Auto) ([id number])Indication: Blood in stool On: 4-Qhm-081042:48 Request RU CULTURE-STOOL ([id number])Indication: Diarrhea On: :27 Request C.Difficile, StoolIndication: Diarrhea On: :27 Request LEUKOCYTE COUNT, FECAL ([id number])Indication: Diarrhea On: 2-Iai-948981:27 Request OCCULT BLOOD FECES SCREEN ([id number])Indication: Diarrhea On: :27 Request OVA & PARASITE DIR SMEAR ([id number])Indication: Diarrhea On: :27 Request Planned Encounters Medical; [facility] 3 Month FU - On: 14-Jun-2018 9:45 [facility] Fast DO, Aparna A Fast DO, Aparna A Planned Procedures DUPLEX SCAN OF RENAL ARTERY On: 29-Apr-2018 Intent ([id number])By: Fast DO, Aparna A Fast DO, Aparna A ELECTROCARDIOGRAM, COMPLETE (ECG) On: 24-Apr-2018 Intent ([id number])By: Fast DO, Aparna A Fast DO, Comments: ekg showed normal sinus rhythym, normal axis, no acute st/t wave changes Aparna A EEGBy: Fast DO, Aparna A Fast DO, On: 11-Jan-2018 Intent Aparna A PFT - CompleteBy: Fast DO, Aparna A On: 31-Aug-2017 Intent Fast DO, Aparna A Ultrasound - LiverBy: Fast DO, Aparna On: 20-Aug-2017 Intent A Fast DO, Aparna A Spirometry ([id number])By: Fast DO Aparna On: 20-Aug-2017 Intent A Fast DO, Aparna A Comments: good effort and curve normal ELECTROCARDIOGRAM, COMPLETE (ECG) On: 20-Aug-2017 Intent ([id number])By: Fast DO, Aparna A Fast DO, Comments: ekg showed normal sinus rhythym, normal axis, no acute st/t wave changes Aparna A Radiology - Chest- PA and LatBy: Fast On: 20-Aug-2017 Intent DO, Aparna A Fast DO, Aparna A SCREENING DIGITAL TOMOSYNTHESIS OF On: 20-Aug-2017 Intent BREAST ([id number])By: Fast DO, Aparna A Comments: end of aug Fast DO, Aparna A BILATERAL MAMMOGRAMS ([id number])By: Fast On: 19-Jul-2016 Intent DO, Aparna A Fast DO, Aparna A Comments: b DEXA SCAN AXIAL SKELETON ([id number])By: On: 19-Jul-2016 Intent Fast DO, Aparna A Fast DO, Aparna A Comments: b ELECTROCARDIOGRAM, COMPLETE (ECG) On: 18-Apr-2016 Intent ([id number])By: Fast DO, Aparna A Fast DO, Comments: [...] MAMMOGRAM, SCREENING, BOTH BREAST On: 17-Aug-2015 Intent ([id number])By: Fast DO, Aparna A Fast DO, Aparna A XR STERNOCLAVICULAR JOINT, 3 VIEWS On: 13-Apr-2015 Intent ([id number])By: Fast DO, Aparna A Fast DO, Comments: right Aparna A DEXA SCAN AXIAL SKELETON ([id number])By: On: 10-Aug-2014 Intent Fast DO, Aparna A Fast DO, Aparna A MAMMOGRAM, SCREENING, BOTH BREAST On: 10-Aug-2014 Intent ([id number])By: Fast DO, Aparna A Fast DO, Aparna A CT - Abdomen & Pelvis (IV Contrast On: 20-Jan-2014 Intent Needed)By: Fast DO, Aparna A Fast DO, Comments: stat call results Aparna A Eprescribed prescriptions ([id number])By: On: 03-Dec-2013 Intent Fast DO, Aparna A Fast DO, Aparna A Pelvic and Breast, Medicare On: 06-Oct-2013 Intent ([id number])By: Fast DO, Aparna A Fast DO, Aparna A EKG ([id number])By: Caryn Camacho On: 06-Aug-2013 Intent Comments: ekg showed normal sinus rhythym, normal axis, no acute st/t wave changes MAMMOGRAM, SCREENING, BOTH BREASTS On: 30-Apr-2013 Intent ([id number])By: Fast DO, Aparna A Fast DO, Comments: [...] MAMMOGRAM, SCREENING, BOTH BREASTS On: 10-Jun-2012 Intent ([id number])By: Fast DO, Aparna A Fast DO, Comments: jun Aparna A DXA, BONE DENSITY, AXIAL SKELETON On: 10-Jun-2012 Intent ([id number])By: Fast DO, Aparna A Fast DO, Comments: jun Aparna A Eprescribed prescriptions ([id number])By: On: 10-Jun-2012 Intent Caryn Camacho DXA, BONE DENSITY, AXIAL SKELETON On: 10-Oct-2011 Intent ([id number])By: Fast DO, Aparna A Fast DO, Comments: december Aparna A TD Injection , IM ([id number])By: On: 10-Oct-2011 Intent Caryn Camacho Comments: 2005 Eprescribed prescriptions ([id number])By: On: 13-Jun-2011 Intent Fast DO, Aparna A Fast DO, Aparna A MAMMOGRAM, SCREENING, BOTH BREASTS On: 13-Jun-2011 Intent ([id number])By: Fast DO, Aparna A Fast DO, Aparna A FLU VAC, SPLIT, >3 YEARS, INTRAMUSC On: 13-Jun-2011 Intent ([id number])By: Caryn Camacho Comments: pt refuses ELECTROCARDIOGRAM, COMPLETE (ECG) On: 30-Dec-2010 Intent ([id number])By: Clarissa Bolden CNP Comments: reviewed with Dr. Garcia, compared to October 10, 2010 EKG ([id number])By: Caryn Camacho On: 10-Oct-2010 Intent Comments: ekg showed normal sinus rhythym, normal axis, no acute st/t wave changes MAMMOGRAM, SCREENING, BOTH BREASTS On: 14-Feb-2010 Intent ([id number])By: Fast DO, Aparna A Fast DO, Comments: end mar Aparna A DXA, BONE DENSITY, AXIAL SKELETON On: 15-Oct-2009 Intent ([id number])By: Fast DO, Aparna A Fast DO, Comments: january Aparna A EKG ([id number])By: Caryn Camacho On: 07-Jul-2009 Intent Comments: ekg showed normal sinus rhythym, normal axis, no acute st/t wave changes upsloping st segments unchanged Ultrasound - SpleenBy: Fast DO, Aparna On: 22-Mar-2009 Intent A Fast DO, Aparna A Ultrasound - LiverBy: Fast DO, Aparna On: 22-Mar-2009 Intent A Fast DO, Aparna A MAMMOGRAM, SCREENING, BOTH BREASTS On: 22-Mar-2009 Intent ([id number])By: Fast DO, Aparna A Fast DO, Aparna [...] Aparna A Fast DO, Aparna A Spirometry ([id number])By: Fast DO, Aparna On: 23-Jan-2008 Intent A Fast DO, Aparna A Comments: good effort and curve- -with mild obstruction Radiology - Chest- PA and LatBy: Fast On: 23-Jan-2008 Intent DO, Aparna A Fast DO, Aparna A EKG ([id number])By: Fast DO, Aparna A Fast On: 23-Jan-2008 Intent DO, Aparna A Comments: ekg showed normal sinus rhythym, normal axis, no acute st/t wave changes DXA, BONE DENSITY, AXIAL SKELETON On: 23-Jan-2008 Intent ([id number])By: Fast DO, Aparna A Fast DO, Aparna A MAMMOGRAM, SCREENING, BOTH BREASTS On: 23-Jan-2008 Intent ([id number])By: Fast DO, Aparna A Fast DO, Aparna [...] Non-smoker Non-smoker : Patient Instructions Indication: Non-smoker [facility] Wellness Physical : How to access health information online Indication: [facility] Wellness Physical [facility] Wellness Physical : How to access health information online - [facility] Wellness Physical : Patient Instructions Indication: [facility] Wellness Physical Palpitations : How to access [...] Scanned Document is available upon request. Encounters Phone Encounter On: 29-Apr-2018 13:45 Encounter Diagnosis: Interstitial pulmonary fibrosis End: 29-Apr-2018 13:50 [facility] Office Visit On: 24-Apr-2018 11:07 Encounter Reason: Follow up acute care visit - The patient feels the same (belly is a little upset today. Had another [...] visit: note: (DX: TGA. Went to [facility] due to sudden memory loss. Said was [...] house and called daughter and said romel rosado looks wierd- kids came over and [...] stone pain again- took cranberry and stone unloader supplement and took away- so no abdominal [...] husban health issues). Note for Physical exam: [facility] Wellness Physical- her palpitations have been better but had discomfort on labor day in chest - working hard didnt make worse -no cough or wheeze- not sob- hurts to touch it lateral hip - worse if walks a lot- doesnt wish to take pneumonia vaccines, [ADDITIONAL REASON] Follow up, Laboratory Test Results - Date: (02/2016). Encounter Diagnosis: MDRENZOP Wellness Physical, Non-smoker, BMI between 19-24,adult, Diastolic [...] now bad gerd and taking otc acid crutch maker and tums and doesnt do it - [...] The patient does have durable power of patent prosecution attorney and living will. The patient has [...]
--- OUTSIDE RECORDS SUMMARY | 2018-08-07 06:56 | XMS RPT_ITS | Continuity of Care Document ---
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 This note was generated with [employer] software. It may contain in correct words, spelling, and punctuation that were not noted in checking the note before signing. 05/30/18 1011 <Electronically signed by Brendan Koch MD> Date Brendan Koch MD CC: Aparna William DO; Brendan Koch MD Date Dictated: 05/30/18 1005 Date Transcribed: 05/30/18 100 Tallow Pumper: PM Signed 16-May-2018 Cardiology Visit Report Result: Comments: See Note; NOTES: [facility] [address] [place] [address]. [address] [place] [address] OFFICE VISIT Date of Service: 05/16/18 MR#: [id number] Acct: [id number] Name: ANASTACIA BEE Rep #: [id number] : 1940 Provider: Brendan Koch MD Age/Sex: 77/F [place] [facility] [place] Status: Signed HPI HPI Details: JACI [...] mg PO DAILY 01/17/16 [History Confirmed 05/16/18] [place]-3 Fatty Acids/Fish Oil [[place] 3 Fish Oil Softgel] 1 ea PO 01/17/16 [History Confirmed 05/16/18] Vitamin E 400 unit PO 01/17/16 [History Confirmed 05/16/18] aspirin 325 mg tablet 325 mg PO DAILY [History Confirmed 05/16/18] atorvastatin 10 mg tablet 10 mg PO DAILY 05/15/18 [History Confirmed 05/16/18] budesonide-formoterol HFA 80 mcg-4.5 mcg/actuation aerosol inhaler 2 puff INHALATION LATANYA reynolds 05/15/18 [History Confirmed 05/16/18] lorazepam 0.5 mg [...] cells PO DAILY 05/16/18 [History Confirmed 05/16/18] PFSH Medical History Premature ventricular contraction (Acute) Hyperlipemia [...] DO 16-May-2018 12 Lead EKG performed by KIM Result: Comments: See Note; NOTES: [facility] [address] [address] 12 Lead EKG performed by KIM 05/16/18 1550 MR#: [id number] Acct: [id number] Name: JACI KIRK RD Rep #: [id number] : 1940 77 From: Brendan Koch MD Attending Dr: Brendan Koch MD Status: DEP AMB Ordering Dr: Brendan Koch MD Date: 05/16/18 Location: [facility] Sex: F C Admitte d: [facility]/12 Lead EKG performed by [facility] [place] ECG Report Interpretation Sinus Rhythm Poor R wave progressionElectronically signed on 05/16/2018 at 22:10 by Brendan Koch [employer] Version 8610 05/16/18 2214 Date Brendan Koch MD CC: Aparna William DO Date Dictated: 05/16/18 1550 Date Transcribed: 05/16/181549 Tallow Pumper: PM Signed 06-May-2018 Renal Artery Duplex Result: Comments: See Note; NOTES: [facility] Cardiovascular Services [address] [place] [address] Renal Artery Duplex Ultrasound 05/06/18 0847 MR#: [id number] Acct: [id number] Name: JACI BEE Rep #: [id number] : 1940 77 From: Thomas Cool MD [...] MD CC: Aparna William DO Date Dictated: 05/06/18846 Date Transcribed: 05/06/182131 Tallow Pumper: Signed 06-Feb-2018 Electroencephalogram Result: Comments: See Note; NOTES: [facility] Pulmonary Services/Neurology [address] [place] [address] MR#: [id number] Acct: [id number] Name: JACI BEE Rep #: [id number] : 1940 77 From: Annika Salmon MD Referring Dr: Aparna William DO Status: REG CLI Ordering Dr: Date: Location: [facility] Sex: F C - Electroencephalogram Date of [...] Dictated: 01/26/18 1023 Date Transcribed: 01/26/18 1023 Tallow Pumper: RSR Signed 27-Sep-2017 Pulmonary Function Test Result: Comments: See Note; NOTES: [facility] Pulmonary Services/Neurology [address] [place] [address] MR#: [id number] Acct: [id number] Name: JACI BEE Rep #: [id number] : 1940 76 From: Robert Rodriguez DO Referring Dr: Aparna William DO Status: REG CLI Ordering Dr: Date: Location: [facility] Sex: F C INTRODUCTION: The patient is [...] CC: Aparna William DO Date Dictated: 09/27/17 133 Date Transcribed: 09/27/171335 Tallow Pumper: DB Signed 20-Sep-2017 SCREENING MAMM (CAD), BILAT Result: Comments: See Note; NOTES: [facility] Imaging Services [address] [place] [address] SCREENING MAMM (CAD), BILAT MR#: [id number] Acct: [id number] Name: JACI BEE Rep #: [id number] : 1940 F 76 From: Constantino Bryan MD PCP: Aparna William DO Status: REG CLI Study: SCREENING MAMM (CAD), BILAT Date of Exam: 09/20/17 Exam# [id number] Ordering Dr: Aparna William DO MAMMOGRAPHY - [...] delay biopsy of a clinically suspicious abnormality. [id number] Electronically Signed: Constantino Bryan MD at 11:06 EST Tel [phone], Service support , CC: Aparna William DO Tallow Pumper: Signed 23-Aug-2017 Liver Result: Comments: See Note; NOTES: [facility] Imaging Services [address] [place] [address] Liver MR#: [id number] Acct: [id number] Name: JACI BEE Rep #: [id number] : [birth year] F 76 From: Constantino Bryan MD PCP: Aparna William DO Status: REG CLI Study: Liver Date of Exam: 08/23/17 Exam# [id number] Ordering Dr: Aparna William DO STUDY: ABDOMINAL [...] Carl Bryan MD at 10:14 EST Tel [phone], Service support , CC: Aparna William DO Tallow Pumper: Signed 20-Aug-2017 Chest PA and Lateral Result: Comments: See Note; NOTES: [facility] Imaging Services [address] [place] [address] Chest PA and Lateral MR#: [id number] Acct: [id number] Name: JACI BEE Rep #: [id number] : 1940 F 76 From: Constantino Bryan MD PCP: Aparna William DO Status: REG CLI Study: Chest PA and Lateral Date of Exam: 08/20/17 Exam# [id number] Ordering Dr: Aparna William DO STUDY: X-RAY [...] Constantino Bryan MD at 19:29 EST Tel [phone], Service support , CC: Aparna William DO Tallow Pumper: Signed 19-Sep-2016 Dexa Bone Density Study () Result: Comments: See Note; NOTES: [facility] Imaging Services [address] [place] [address] Verdana 4d Dexa Bone Density Study () MR#: [id number] Acct: [id number] Name: KEIKO BEE Rep #: [id number] : 1940 F 75 From: Constantino Bryan MD PCP: Aparna William DO Status: REG CLI Study: Dexa Bone Density Study () Date of Exam: 09/19/16 Exam# [id number] Ordering Dr: Aparna William DO STUDY: DUAL [...] Constantino Bryan MD at 14:02 EST Tel [phone], Service support [phone], CC: Aparna William DO Tallow Pumper: Signed 19-Sep-2016 SCREENING MAMM (CAD), BILAT Result: Comments: See Note; NOTES: [facility] Imaging Services [address] [place] [address] Verdana 4d SCREENING MAMM (CAD), BILAT MR#: [id number] Acct: [id number] Name: FERMIN BEE Rep #: [id number] : 1940 F 75 From: Constnatino Bryan MD PCP: Aparna William DO Status: REG CLI Study: SCREENING MAMM (CAD), BILAT Date of Exam: 09/19/16 Exam# [id number] Ordering Dr: Aparna William DO MAMMOGRAPHY - [...] delay biopsy of a clinically suspicious abnormality. [id number] Electronically Signed: Constantino Bryan MD at 15:03 EST Tel [phone], Service support [phone], CC: Aparna William DO Tallow Pumper: Signed 21-Jan-2016 Emergency Department Summary Result: Comments: See Note; NOTES: [facility] Medical Records Department [address] [place] [address] Emergency Department Summary MR#: [id number] Acct: [id number] Name: JACI BEE Rep #: [id number] : 1940 75 From: Erich Contreras MD PCP: Aparna William DO Status: [facility] ER DATE OF SERVICE: 01/17/2016 [...] C: Aparna William DO T: NTS JOB: [id number] 01/21/16 0755 <Electronically signed by Erich Contreras MD> Date Erich Contreras MD Cosigner Signature (If Indicated): Date _ CC: Aparna William DO Date Dictated: 01/17/16939 Date Transcribed: 01/17/16939 Tallow Pumper: Signed 17-Jan-2016 Discharge Instruction Result: Comments: See Note; NOTES: [facility] Medical Records Department [address] [place] [address] Discharge Instruction 01/17/16 0834 MR#: [id number] Acct: [id number] Name: JACI BEE Rep #: [id number] : 1940 75 From: Erich Contreras MD PCP: Aparna William DO Status: REG ER ED Disposition - Plan for ED Patient: Chief Complaint: Abd Pain Instructi ons: ED Kidney Stone, Passed Referrals: Fast,Aparna, DO [Primary Care Provider] - Keep Surendra appointment What to do if you have Problems For any increased pain, shortness of breath, bleeding, nause a or vomiting, chest pain, or any unexpected problems, contact your doctor. Call [facility] ([phone]) or report to the closest Emergency Room. Call 911 if necessary. 01/17/16 0835 &amp ;#60;Electronically signed by Erich Contreras MD> Date Erich Contreras MD Cosigner Signature (If Indicated): Date CC: Aparna William DO 17-Jan-2016 Abdomen/Pelvis without Cont Result: Comments: See Note; NOTES: [facility] Imaging Services [address] [place] [address] Verdana 4d Abdomen/Pelvis without Cont MR#: [id number] Acct: [id number] Name: JACI BEE Rep #: [id number] : 1940 F 75 From: Constantino Bryan MD PCP: Aparna William DO Status: REG ER Study: Abdomen/Pelvis without Cont Date of Exam: 01/17/16 Exam# [id number] Ord ering Dr: Erich Contreras MD STUDY: [...] Constantino Bryan MD at 8:11 EDT Tel [phone], Service support [phone], CC: Aparna William DO; Erich Contreras MD Tallow Pumper: Signed 10-Jan-2016 Echocardiogram Complete Result: Comments: See Note; NOTES: [facility] Cardiovascular Services [address] [place] [address] Echo Complete 01/10/16 0848 MR#: [id number] Acct: [id number] Name: SHMUEL YAZMINTAYLORJACI Kassandra Rep #: [id number] : 1940 75 From: Bari Mosley MD Attending Dr: Aparna William DO Status: REG CLI Ordering Dr: Aparna William DO Date: 01/10/16 Location: [facility] Sex: F C Admitted: Reason [...] DO Date Dictated: 01/10/16 0848 Date Transcribed: 01/10/16 1229 Tallow Pumper: Signed 10-Jan-2016 Nuclear Stress Test - Treadmil Result: Comments: See Note; NOTES: [facility] Imaging Services [address] [place] [address] Saw 4d Nuclear Stress Test - Treadmil MR#: [id number] Acct: [id number] N debbie: JACI BEE Rep #: [id number] : 1940 75 From: Bari Mosley MD [...] capacity. Bari Mosley MD T: NTS JOB: [id number] 01/14/1609 <Electronically signed by Bari Mosley MD> Date Bari Mosely MD CC: Aparna William DO Date Dictated: 01/10/16933 Date Transcribed: 01/10/16933 Tallow Pumper: Signed 21-Dec-2015 EKG (23412) Comments: ekg showed normal sinus rhythym, normal axis, no acute st/t wave changes Result: [MEASUREMENTS ANALYSIS] Date of Test: 12/21/2015 11:21:34; Heart Rate: 71; AL Interval: 178; QRS: 88; QT Interval: 396; Corrected QT Interval (QTc): 415; P Wave [place]: 54; QRS Wave [place]: 12; T Wave [place]: 45; Blood Pressure: 154/90 [ECG DIAGNOSTIC STATEMENTS] Date of Test: 12/21/2015 11:21:34; Summary: Sinus Rhythm WITHIN NORMAL LIMITS 17-Sep-2015 Bilat Scrn Digital AND CAD Result: Comments: See Note; NOTES: [facility] Imaging Services [address] [place] [address] Verdana 4d Bilat Scrn Digital AND CAD MR#: [id number] Acct: [id number] Name: JACI EBE Rep #: [id number] : 1940 F 74 From: Constantino Bryan MD PCP: Aparna William DO Status: REG CLI Study: Bilat Scrn Digital AND CAD Date of Exam: 09/17/15 Exam# [id number] Orde ring Dr: Aparna William DO MAMMOGRAPHY [...] delay biopsy of a clinically suspicious abnormality. [id number] Electronically Signed: Constantino Bryan MD at 14:44 EST Tel [phone], Service support [phone], CC: Aparna William DO Tallow Pumper: Signed 13-Apr-2015 S-C Jts Min 3 Views Result: Comments: See Note; NOTES: [facility] Imaging Services [address] [place] [address] Radiology Report MR#: [id number] Acct: [id number] Name: ROHITJACI E Rep #: [id number] : 1940 F 74 From: Constantino Bryan MD PCP: Aparna William DO Status: REG CLI Study: S-C Jts Min 3 Views Date of Exam: 04/13/15 Exam# [id number] Ordering Dr: Aparna William DO STUDY: X-RAY [...] Constantino Bryan MD at 15:10 EDT Tel [phone], Service s upport [phone], RAD/S-C Jts Min 3 Views IMPRESSION: Normal x-ray of the bilateral sternoclavicular articulations. Electronically Signed: Constantino martinez MD at 15:10 EDT Tel [phone], Service support [phone], CC: Aparna William DO Tallow Pumper: Signed 20-Aug-2014 Gege Hernandez Digital AND CAD Result: Comments: See Note; NOTES: [facility] Imaging Services [address] [place] [address] Breast Imaging Report MR#: [id number] Acct: [id number] Name: JACI BEE Rep #: [id number] : 1940 F 73 From: Constantino Bryan MD PCP: Aparna William DO Status: REG CLI Study: Gege Hernandez Digital AND CAD Date of Exam: 08/20/14 Exam# [id number] Ordering Dr: Aparna William DO MAMMOGRAPHY - BILATERAL SCREENING REASON FOR EXAM: Female, 73 years old. Routine annual screening examination. PERTINENT HISTORY: Non-contributory. TECHNIQUE: Digital examination. Mediolater al oblique (MLO) and craniocaudad (CC) views of both breasts were obtained. CAD: CAD was performed on this study. COMPARISON: Comparison is made with prior study dated July 21, 2013 and [facility] 2011. FINDINGS: Breast Composition: There are scattered [...] Constantino harden MD at 10:22 EST Tel [phone], Service support [phone], CC: Aparna William DO Tallow Pumper: Signed 20-Aug-2014 Dexa Bone Density Study (HP) Result: Comments: See Note; NOTES: [facility] Imaging Services [address] [place] [address] Bone Density Report MR#: [id number] Acct: [id number] Name: JACI BEE Rep #: [id number] : 1940 F 73 From: Constantino Bryan MD PCP: Aparna William DO Status: REG CLI Study: Dexa Bone Density Study (HP) Date of Exam: 08/20/14 Exam# [id number] Ordering Dr: Aparna William DO STUDY: DUAL [...] Constantino Bryan MD at 11:26 EST Tel [phone], Service support [phone], CC: Aparna William DO Tallow Pumper: Signed 20-Jan-2014 Abdomen/Pelvis WITH Contrast Result: Comments: See Note; NOTES: [facility] Imaging Services [address] [place], [place] [address] CAT Scan Report MR#: [id number] Acct: [id number] Name: JACI BEE Rep #: [id number] : 1940 F 73 From: Jose J Gordillo MD PCP: Aparna William DO Status: REG CLI Study: Abdomen/Pelvis WITH Contrast Date of Exam: 01/20/14 Exam# [id number] Ordering Dr: Aparna William DO STUD Y: [...] MD at 17:37 EDT , Service support [phone], CC: Aparna William DO Tallow Pumper: Signed 21-Jul-2013 Bilat Scrn Digital & CAD Result: Comments: See Note; NOTES: [facility] Imaging Services [address] [place] [address] Breast Imaging Report MR#: [id number] Acct: [id number] Name: JACI BEE Rep #: [id number] : 1940 F 72 From: Jose J Gotti MD PCP: Aparna William DO Status: REG CLI Exam# [id number] Ordering Dr: Aparna William DO MAMMOGRAPHY - [...] M.D. at 16:22 EST , Service support [phone], CC: Aparna William DO Tallow Pumper: Signed 11-Jun-2013 PT Discharge Summary Result: Comments: See Note; NOTES: [facility] [address]. [address] [place] [address] Fax REHABILITATION SERVICES DISCHARGE SUMMARY MR#: [id number] Acct: [id number] Name: JACI BEE Rep #: [id number] : 1940 72 From: Sheryl Armstrong Referring [...] C: Aparna William DO T: NTS JOB: [id number] <Electronically signed by Sehryl Armstrong > 06/11/13 1344 CC: * Signed 28-May-2013 Inital Evaluation - PT Result: Comments: See Note; NOTES: [facility] [address] [place], [place] [address] Fax REHABILITATION SERVICES INITIAL EVALUATION MR#: [id number] Acct: [id number] Name: JACI BEE Rep #: [id number] : 1940 72 From: Sheryl Armstrong Referring [...] decreased independent exercise knowledge. Oswestry equals 10, W9555-JY, O1462-UX. GOALS: 1. Decrease complaint of low back [...] first. Sheryl Armstrong, PT T: NTS JOB: [id number] <Electronically signed by Sheryl Armstrong > 05/28/13 6380 CC: Signed For Medicare only, by signing [...] Status: Active Most Recent Primary Occupation Comments: [employer] Status: Active Non Drinker/No Alcohol Use Status: [...] kg/m2 Body Surface Area Calculated 1.66 m2 8-Xpc-931567:23 Temperature 98.2 f Pulse 78 /min Comments: [...] 0.00 cm Results Date Description Value Details :18 Catachol+VMA, 24 HR UR Comments: [facility] (refer to report for specific site)refer to report for address and phone number VMA,24UR 2.4 {mg/24_hr} (Normal) Range: 0.0-7.5 Comments: This test was developed and its performance characteristicsdetermined by [facility]. It has not been cleared orapproved by the Food and Drug Administration. VMA,UR 1.2 mg/L (Normal) DOPAMINE,U24 80 {ug/24_hr} (Normal) Range: 0-510 Comments: Performed at: [address] [id number] Director: Prince García MD, Phone: [phone] TESTING PE RFORMED AT [facility]. ORIGINAL REPORT ON FILE IN LAB CONTAINS ADDITIONAL TEST SITE INFORMATION. DOPAMINE,UR 40 ug/L (Normal) NOREPINEPH,U24 28 {ug/24_hr} (Normal) Range: 0-135 NOREPINEPH,UR 14 ug/L (Normal) EPINEPHRINE,U24 4 {ug/24_hr} (Normal) Range: 0-20 EPINEPHRINE, UR 2 ug/L (Normal) 12-Vzr-493767:25 HGB A1C (92068) Comments: PATIENT WAS FASTINGPERFORMED BY: [facility] Bndxkx0689 [facility] [id number] Hemoglobin A1c 5.3 % (Normal) Range: 4.8-5.6 Comments: . Pre-diabetes: 5.7 - 6.4 Diabetes: >6.4 Glycemic control for adults with diabetes: <7.0 22-Mgp-951075:25 MICROALBUMIN: CREATININE RATIO Comments: PATIENT WAS FASTINGPERFORMED BY: [facility] Bawbaf1188 [facility] [id number] (03168) AND (26532) Alb/Creat Ratio <19.6 {mg/g_creat} (Normal) Range: 0.0-30.0 Albumin, Urine <3.0 ug/mL (Normal) Creatinine, Urine 15.3 mg/dL (Normal) 57-Jku-918686:25 LIPID PANEL (54868) Comments: PATIENT WAS FASTINGPERFORMED BY: [facility] FacilityOlxkap9710 [facility] [id number] LDL/HDL Ratio 2.6 {ratio} (Normal) Range: 0.0-3.2 Comments: LDL/HDL Ratio Men Women 1/2 Avg.Risk 1.0 1.5 Av g.Risk 3.6 3.2 2X Avg.Risk 6.2 5.0 3X Avg.Risk 8.0 6.1 LDL Cholesterol Calc 138 mg/dL (Abnormal) Range: 0-99 VLDL Cholesterol Celso 15 mg/dL (Normal) Range: 5-40 HDL Cholesterol 53 mg/dL (Normal) Triglycerides 76 mg/dL (Normal) Range: 0-149 Cholesterol, Total 206 mg/dL (Abnormal) Range: 100-199 21-Ezv-806863:25 CBC & PLATELETS (AUTO) Comments: PATIENT WAS FASTINGPERFORMED BY: [facility] Ulnjgf4810 [facility] [id number] (47126) Platelets 166 {x10E3/uL} (Normal) Range: 150-379 RDW 12.3 % (Normal) Range: 12.3-15.4 MCHC 34.1 g/dL (Normal) Range: 31.5-35.7 MCH 29.9 pg (Normal) Range: 26.6-33.0 MCV 88 fL (Normal) Range: 79-97 Hematocrit 45.4 % (Normal) Range: 34.0-46.6 Hemoglobin 15.5 g/dL (Normal) Range: 11.1-15.9 RBC 5.19 {x10E6/uL} (Normal) Range: 3.77-5.28 WBC 3.9 {x10E3/uL} (Normal) Range: 3.4-10.8 89-Hop-121629:25 METABOLIC PANEL, COMPREHENSIVE Comments: PATIENT WAS FASTINGPERFORMED BY: [facility] FacilityMekbnw5334 [facility] [id number] (48002) ALT (SGPT) 21 [iU]/L (Normal) Range: 0-32 [...] 8-27 Glucose 82 mg/dL (Normal) Range: 65-99 22-Eqf-184060:14 CBC W/AUTO DIFF WBC Comments: PATIENT NOT FASTINGPERFORMED BY: [facility] Pncqzh1641 [facility] [id number] Information: NURSE DRAW (08603) Immature Grans (Abs) 0.0 {x10E3/uL} (Normal) Range: [...] 3.77-5.28 WBC 6.1 {x10E3/uL} (Normal) Range: 3.4-10.8 81-Tcf-087821:14 METABOLIC PANEL, COMPREHENSIVE Comments: PATIENT NOT FASTINGPERFORMED BY: [facility]CoH[facility] CenterSlxjwb4742 [facility] [id number]; review 12/03 (97934) ALT (SGPT) 25 [iU]/L (Normal) Range: 0-32 [...] 8-27 Glucose 81 mg/dL (Normal) Range: 65-99 07-Sag-696970:42 TSH (45921) Comments: PATIENT NOT FASTINGPERFORMED BY: [facility]outH[facility] CenterRztjvj3532 [facility] [id number] TSH 3.330 {uIU/mL} (Normal) Range: 0.450-4.500 32-Jyi-665182:42 SED RATE ERYTHROCYTE (59732) Comments: PATIENT NOT FASTINGPERFORMED BY: [facility]outH[facility]ettstown [facility] CenterOlrade3698 [facility] [id number] Sedimentation Rate-Westergren 4 mm/h (Normal) Range: 0-40 80-Tmm-260743:42 C-REACTIVE PROTEIN (70964) Comments: PATIENT NOT FASTINGPERFORMED BY: [facility]outH[facility] CenterNoakcf4586 [facility] [id number] C-Reactive Protein, Quant <0.3 mg/L (Normal) Range: 0.0-4.9 78-Lkv-441023:42 HEPATITIS C ANTIBODY (75450) Comments: PATIENT NOT FASTINGPERFORMED BY: [facility]6370 [facility] [id number] Hep C Virus Ab <0.1 {s/co_ratio} (Normal) Range: 0.0-0.9 Comments: Negative: < 0.8 Indeterminate: 0.8 - 0.9 Positive: > 0.9 . The CDC recommends that a positive HCV antibody result be followed up with a HCV Nucleic Acid Amplification test (747644). 22-Pmh-239481:42 EADOR-BSHENNVTHHY-KHCTT (24921) Comments: PATIENT NOT FASTINGPERFORMED BY: [employer] Pnaaln6070 [facility] [id number] AFP, Serum, Tumor Marker 1.9 ng/mL (Normal) Range: 0.0-8.3 Comments: Jona ECLIA methodology 20-Doj-598826:47 LIPOPROTEIN, BLD, BY NMR Comments: PATIENT WAS FASTINGPERFORMED BY: [facility] 964787 [facility] [id number] BY: [facility] Nzxjtm9063 [facility] [id number]; can review on 08/20 (46122) LP-IR Score 71 (Abnormal) Comments: INSULIN RESISTANCE MARKER <--Insulin Sensitive Insulin Resistant--> Percentile in Reference PopulationInsulin Resistance ScoreLP-IR Score Low 25th 50th 75th High <27 27 45 63 >63LP-IR Score is inaccurate if patient is non-fasting. .The LP-IR score is a laboratory developed i [facility] that has beenassociated with insulin [...] were developed and their performance characteristicsdetermined by [employer]. These assays have not been cleared by [...] 1600 - 2000 Very High > 2000 37-Uei-430313:47 MICROALBUMIN: CREATININE Comments: PATIENT WAS FASTINGPERFORMED BY: [employer] [id number] BY: [employer] Vuljxg6974 [facility] [id number] RATIO (05465) AND (31810) Alb/Creat Ratio <12.7 {mg/g_creat} (Normal) Range: 0.0-30.0 Albumin, Urine <3.0 ug/mL (Normal) Creatinine, Urine 23.6 mg/dL (Normal) 16-Jvy-474906:47 CBC with auto diff Comments: PATIENT WAS FASTINGPERFORMED BY: [employer] [address] [id number] BY: [employer] Pcswvj9674 [facility] [id number] (77294) Immature Grans (Abs) 0.0 {x10E3/uL} (Normal) Range: [...] 3.77-5.28 WBC 3.6 {x10E3/uL} (Normal) Range: 3.4-10.8 42-Bwl-374804:47 METABOLIC PANEL, Comments: PATIENT WAS FASTINGPERFORMED BY: [facility] [address] [id number] BY: [facility] Obtvrg8629 [facility] [id number] [facility] (45715) ALT (SGPT) 24 [iU]/L (Normal) Range: 0-32 [...] Glucose, Serum 80 mg/dL (Normal) Range: 65-99 58-Bpu-565013:47 HGB A1C (74504) Comments: PATIENT WAS FASTINGPERFORMED BY: [facility] [id number] BY: [facility] [id number] Hemoglobin A1c 5.4 % (Normal) Range: 4.8-5.6 Comments: . Pre-diabetes: 5.7 - 6.4 Diabetes: >6.4 Glycemic control for adults with diabetes: <7.0 01-May-20178:49 CBC with auto diff Comments: PATIENT WAS FASTINGPERFORMED BY: [facility] [address] [id number] Information: O22210, 993276 (02249) Immature Grans (Abs) 0.0 {x10E3/uL} (Normal) Range: [...] PANEL, COMPREHENSIVE Comments: PATIENT WAS FASTINGPERFORMED BY: LabCoHackettstown Medical CenterAqdgeh2798 [facility] [id number] (92399) ALT (SGPT) 29 [iU]/L (Normal) Range: 0-32 [...] mg/dL (Normal) Range: 65-99 :49 HGB A1C (95246) Comments: PATIENT WAS FASTINGPERFORMED BY: [employer] Wxjyqe2593 [facility] [id number] Hemoglobin A1c 5.5 % (Normal) Range: 4.8-5.6 Comments: . Pre-diabetes: 5.7 - 6.4 Diabetes: >6.4 Glycemic control for adults with diabetes: <7.0 :49 LIPID PANEL (64385) Comments: PATIENT WAS FASTINGPERFORMED BY: [employer] Ywovjd0093 [facility] [id number]; review at 05/14 appt LDL/HDL Ratio 2.1 [...] mg/dL (Normal) Range: 100-199 :27 CBC (AUTO) (96915) Comments: PATIENT WAS FASTINGPERFORMED BY: [place]out[place] 964787 [facility] [id number] BY: SkoutHackettstown Medical CenterNcpzkf9843 [facility] [id number] Platelets 184 {x10E3/uL} (Normal) Range: 150-379 RDW 12.7 % (Normal) Range: 12.3-15.4 MCHC 32.5 g/dL (Normal) Range: 31.5-35.7 MCH 29.5 pg (Normal) Range: 26.6-33.0 MCV 91 fL (Normal) Range: 79-97 Hematocrit 46.8 % (Abnormal) Range: 34.0-46.6 Hemoglobin 15.2 g/dL (Normal) Range: 11.1-15.9 RBC 5.15 {x10E6/uL} (Normal) Range: 3.77-5.28 WBC 4.5 {x10E3/uL} (Normal) Range: 3.4-10.8 :27 Vitamin D Hydroxy Comments: PATIENT WAS FASTINGPERFORMED BY: Skout[address] [id number] BY: SkoutHackettstown Medical CenterYiazpd1242 [facility] [id number] (75010) Vitamin D, 25-Hydroxy 49.9 ng/mL (Normal) Range: 30.0-100.0 Comments: Vitamin D deficiency has been defined by the [place] Level ofMedicine and an Endocrine Society practice guideline as alevel of serum 25-OH vitamin D less than 20 ng/mL (1,2).The Endocrine Society went on to further define vitamin Dinsufficiency as a level between 21 and 29 ng/mL (2).1. IOM (Pine Level of Medicine). 2010. Dietary reference intakes for calcium and D. [place]: The National Academies Press.2. Mayur MF, Scar NC, Claribel CAMP, et al. Evaluation, treatment, and prevention of vitamin D deficiency: an Endocrine Society clinical practice guideline. JCEM. 2010; 96(7):1911-30. :27 MICROALBUMIN: CREATININE Comments: PATIENT WAS FASTINGPERFORMED BY: Skout[address] [id number] BY: SkoutHackettstown Medical CenterTugxtv1087 [facility] [id number] RATIO (46064) AND (40359) Microalb/Creat Ratio <13.2 {mg/g_creat} (Normal) Range: 0.0-30.0 Creatinine, Urine 22.8 mg/dL (Normal) Microalbumin, Urine <3.0 ug/mL (Normal) :27 HGB A1C (14757) Comments: PATIENT WAS FASTINGPERFORMED BY: LabMotilo[address] [id number] BY: LabAsc[facility]6370 [facility] [id number] Hemoglobin A1c 5.5 % (Normal) Range: 4.8-5.6 Comments: . Pre-diabetes: 5.7 - 6.4 Diabetes: >6.4 Glycemic control for adults with diabetes: <7.0 :27 METABOLIC PANEL, Comments: PATIENT WAS FASTINGPERFORMED BY: LabMotilo[address] [id number] BY: LabMotiloHackettstown Medical CenterWdalkl7376 [facility] [id number] COMPREHENSIVE (39447) ALT (SGPT) 27 [iU]/L (Normal) Range: 0-32 [...] Glucose, Serum 84 mg/dL (Normal) Range: 65-99 06-Oja-35972:27 LIPOPROTEIN, BLD, BY NMR Comments: PATIENT WAS FASTINGPERFORMED BY: BN [facility] Ysvtllgiuq7203 [facility] [id number] BY: CB [facility] Dxkkea9369 [facility] [id number]; non-emergent till apt (70661) LP-IR Score 62 (Abnormal) Comments: INSULIN RESISTANCE MARKER <--Insulin Sensitive Insulin Resistant--> Percentile in Reference PopulationInsulin Resistance ScoreLP-IR Score Low 25th 50th 75th High <27 27 45 63 >63LP-IR Score is inaccurate if patient is non-fasting. .The LP-IR score is a laboratory developed [facility] that has beenassociated with insulin [...] were developed and their performance characteristicsdetermined by [employer]. These assays have not been cleared by [...] 1600 - 2000 Very High > 2000 81-Ydb-43661:27 BRFXT-DUCMTWMEUUD-XVZZP (47532) Comments: PATIENT WAS FASTINGPERFORMED BY: [employer] [facility] [id number] BY: GigSky70 [employer] Integrityin [place] [id number] AFP, Serum, Tumor Marker 2.6 ng/mL (Normal) Range: 0.0-8.3 Comments: [employer] ECLIA methodology :48 Vitamin D Hydroxy Comments: PATIENT WAS FASTINGPERFORMED BY: [employer] [facility] [id number] BY: [facility]6370 PerkDublin [place] [id number] (06632) Vitamin D, 25-Hydroxy 40.8 ng/mL (Normal) Range: 30.0-100.0 Comments: Vitamin D deficiency has been defined by the [place] Level ofMedicine and an Endocrine Society practice guideline as alevel of serum 25-OH vitamin D less than 20 ng/mL (1,2).The Endocrine Society went on to further define vitamin Dinsufficiency as a level between 21 and 29 ng/mL (2).1. IOM (Pine Level of Medicine). 2010. Dietary reference intakes for calcium and D. [place]: The National Academies Press.2. Mayur MF, Scar LAWRENCE, Claribel CAMP, et al. Evaluation, treatment, and prevention of vitamin D deficiency: an Endocrine Society clinical practice guideline. JCEM. 2010; 96(7):1911-30. :48 HGB A1C (44141) Comments: PATIENT WAS FASTINGPERFORMED BY: [employer] [address] [id number] BY: [employer] Gsbmnt6130 [facility] [id number] Hemoglobin A1c 5.5 % (Normal) Range: 4.8-5.6 Comments: . Pre-diabetes: 5.7 - 6.4 Diabetes: >6.4 Glycemic control for adults with diabetes: <7.0 :48 CBC W/AUTO DIFF WBC Comments: PATIENT WAS FASTINGPERFORMED BY: [employer] [address] [id number] BY: [employer] Scffut7240 [facility] [id number] (37404) Immature Grans (Abs) 0.0 {x10E3/uL} (Normal) Range: [...] 3.77-5.28 WBC 3.8 {x10E3/uL} (Normal) Range: 3.4-10.8 28-Ziw-36357:48 METABOLIC PANEL, Comments: PATIENT WAS FASTINGPERFORMED BY: [facility] [address] [id number] BY: CB [facility] [address] [id number] [facility] (66458) ALT (SGPT) 21 [iU]/L (Normal) Range: 0-32 [...] Glucose, Serum 92 mg/dL (Normal) Range: 65-99 90-Lxs-46957:48 LIPOPROTEIN, BLD, BY NMR Comments: PATIENT WAS FASTINGPERFORMED BY: BN [facility] [address] [id number] BY: CB [facility] Dsosjo8655 [facility] [id number] (23510) LP-IR Score 67 (Abnormal) Comments: INSULIN RESISTANCE MARKER <--Insulin Sensitive Insulin Resistant--> Percentile in Reference PopulationInsulin Resistance ScoreLP-IR Score Low 25th 50th 75th High <27 27 45 63 >63LP-IR Score is inaccurate if patient is non-fasting. .The LP-IR score is a laboratory developed i [facility] that has beenassociated with insulin [...] were developed and their performance characteristicsdetermined by [employer]. These assays have not been cleared by [...] - 2000 Very High > 2000 06-Jul-20169:48 Vitamin D Hydroxy (07290) Comments: PATIENT WAS FASTINGPERFORMED BY: [facility] [address] [id number] BY: [facility] Aicbnk7381 [facility] [id number] Vitamin D, 25-Hydroxy 43.7 ng/mL (Normal) Range: 30.0-100.0 Comments: Vitamin D deficiency has been defined by the [place] Level ofMedicine and an Endocrine Society practice guideline as alevel of serum 25-OH vitamin D less than 20 ng/mL (1,2).The Endocrine Society went on to further define vitamin Dinsufficiency as a level between 21 and 29 ng/mL (2).1. IOM (Pine Level of Medicine). 2010. Dietary reference intakes for calcium and D. [place]: The National Academies Press.2. Mayur MF, Scar NC, Claribel CAMP, et al. Evaluation, treatment, and prevention of vitamin D deficiency: an Endocrine Society clinical practice guideline. JCEM. 2010; 96(7):1911-30. :48 [id number]-LQCSXEOGTPO-TKLLV (78473) Comments: PATIENT WAS FASTINGPERFORMED BY: Skout[address] [id number] BY: SkoutBenjamin [place] 2341270 [facility] [id number] AFP, Serum, Tumor Marker 2.0 ng/mL (Normal) Range: 0.0-8.3 Comments: Jona ECLIA methodology :48 CBC with auto diff Comments: PATIENT WAS FASTINGPERFORMED BY: Skout[address] [id number] BY: SkoutHackettstown Medical CenterXrecdo1899 [facility] [id number] (67611) Immature Grans (Abs) 0.0 {x10E3/uL} (Normal) Range: [...] Comments: PATIENT WAS FASTINGPERFORMED BY: BN [facility] Yhcnohsewb2614 [facility] [id number] BY: CB [facility] Rpeolq4114 [facility] [id number] COMPREHENSIVE (75858) ALT (SGPT) 27 [iU]/L (Normal) Range: 0-32 [...] Glucose, Serum 82 mg/dL (Normal) Range: 65-99 :48 LIPOPROTEIN, BLD, BY NMR Comments: PATIENT WAS FASTINGPERFORMED BY: BN [facility] Jbjeqyewqi1206 [facility] [id number] BY: CB [facility] Xnpwsc0265 [facility] [id number]; non-emergent till apt next week (10046) LP-IR Score 71 (Abnormal) Comments: INSULIN RESISTANCE MARKER <--Insulin Sensitive Insulin Resistant--> Percentile in Reference PopulationInsulin Resistance ScoreLP-IR Score Low 25th 50th 75th High <27 27 45 63 >63LP-IR Score is inaccurate if patient is non-fasting. .The LP-IR score is a laboratory developed i [facility] that has beenassociated with insulin [...] were developed and their performance characteristicsdetermined by [employer]. These assays have not been cleared by [...] Very High > 2000 :48 HGB A1C (44309) Comments: PATIENT WAS FASTINGPERFORMED BY: [employer] [place] [address] [id number] BY: [employer] [facility]6370 [facility] [id number] Hemoglobin A1c 5.7 % (Abnormal) Range: 4.8-5.6 Comments: . Pre-diabetes: 5.7 - 6.4 Diabetes: >6.4 Glycemic control for adults with diabetes: <7.0 :48 MICROALBUMIN: CREATININE Comments: PATIENT WAS FASTINGPERFORMED BY: [employer] [address] [id number] BY: GigSky70 [facility] [id number] RATIO (51668) AND (96949) Microalb/Creat Ratio 7.8 {mg/g_creat} (Normal) Range: 0.0-30.0 Microalbumin, Urine 5.3 ug/mL (Normal) Creatinine, Urine 68.0 mg/dL (Normal) 00-Rzn-887029:11 CALCULUS CHEMICAL QUANTI Comments: PATIENT NOT FASTINGPERFORMED BY: LabCo[address] [id number] Information: [id number] (77921) Please note: SPRCS (Normal) Comments: Calculi report without photograph will follow via computer, mail,or power lineworker delivery.Physician questions regarding Calculi Analysis contact [facility] at:[phone]. Nidus No Nidus visualized (Normal) Calcium phosphate 05 % (Normal) Ca oxalate monohydr. 95 % (Normal) Composition SPRCS (Normal) Comments: Percentage (Represents the % composition) Weight 14.0 mg (Normal) Size 3x3x2 mm (Normal) Color Brown (Normal) 89-Ivb-26316:20 Basic Metabolic Profile (BMP) Comments: [facility] Bgarqbultr[address] [place], [place], [id number] GAP 9 (Normal) Range: 5-15 CO2 25.0 [...] Automated Comments: [facility] Tadiiqnspd[address] [place], [address] Absolute Lymph 0.66 {X10_3/ul} (Abnormal) Range: 0.83-4.51 [...] Has pt arrived? YHow was Urine Obtained? [facility] Nxagcxmrdc6678 [facility] [place], [address] MUCUS, URINE 0 SEEN {/hpf} (Normal) BACTERIA [...] COLOR Yellow (Normal) :39 Vitamin D Hydroxy (58366) Comments: PATIENT WAS FASTINGPERFORMED BY: [employer]70 [employer] Data IntegrityColumbus [facility] Healthcare System [id number] Vitamin D, 25-Hydroxy 36.0 ng/mL (Normal) Range: 30.0-100.0 Comments: Vitamin D deficiency has been defined by the [place] Level ofFulton [facility] Health Centercine and an Endocrine Society practice guideline as alevel of serum 25-OH vitamin D less than 20 ng/mL (1,2).The Endocrine Society went on to further define vitamin Dinsufficiency as a level between 21 and 29 ng/mL (2).1. IOM (Pine Level of Medicine). 2010. Dietary reference intakes for calcium and D. [place]: The National Academies Press.2. Mayur MF, Scar LAWRENCE, Claribel CAMP, et al. Evaluation, treatment, and prevention of vitamin D deficiency: an Endocrine Society clinical practice guideline. JCEM. 2010; 96(7):1911-30. :39 CBC W/AUTO DIFF WBC Comments: PATIENT WAS FASTINGPERFORMED BY: [employer] Boszuu1959 [facility] [id number] Information: [id number] (31508) Immature Grans (Abs) 0.0 {x10E3/uL} (Normal) Range: [...] PANEL, COMPREHENSIVE Comments: PATIENT WAS FASTINGPERFORMED BY: LabCoHackettstown Medical CenterPduqpa6170 [facility] [id number] (92333) ALT (SGPT) 24 [iU]/L (Normal) Range: 0-32 [...] mg/dL (Normal) Range: 65-99 :39 LIPID PANEL (28157) Comments: PATIENT WAS FASTINGPERFORMED BY: [facility] PharmatechColumbus Regional Healthcare System [id number]; non-emergent till apt LDL/HDL Ratio 4.3 {ratio_units} [...] PANEL, COMPREHENSIVE Comments: PATIENT WAS FASTINGPERFORMED BY: [facility] PharmatechColumbus Regional Healthcare System [id number] (96393) ALT (SGPT) 28 [iU]/L (Normal) Range: 0-32 [...] Glucose, Serum 83 mg/dL (Normal) Range: 65-99 68-Mmh-76589:58 Vitamin D Hydroxy (82669) Comments: PATIENT WAS FASTINGPERFORMED BY: LabCoHackettstown Medical CenterWdauqf8902 [facility] [id number] Vitamin D, 25-Hydroxy 35.4 ng/mL (Normal) Range: 30.0-100.0 Comments: Vitamin D deficiency has been defined by the Pine Level ofMedicine and an Endocrine Society practice guideline as alevel of serum 25-OH vitamin D less than 20 ng/mL (1,2).The Endocrine Society went on to further define vitamin Dinsufficiency as a level between 21 and 29 ng/mL (2).1. IOM (Pine Level of Medicine). 2010. Dietary reference intakes for calcium and D. [place]: The National Academies Press.2. Mayur MF, Scar NC, Claribel CAMP, et al. Evaluation, treatment, and prevention of vitamin D deficiency: an Endocrine Society clinical practice guideline. JCEM. 2010; 96(7):1911-30. :58 CBC W/AUTO DIFF WBC Comments: PATIENT WAS FASTINGPERFORMED BY: [facility]allyAsc[facility] Hospital6370 [facility] [id number] Information: [id number] (24571) Immature Grans (Abs) 0.0 {x10E3/uL} (Normal) Range: [...] WBC 4.4 {x10E3/uL} (Normal) Range: 3.4-10.8 :58 LMADP-BHHYAHTYDYE-XDLOW (00815) Comments: PATIENT WAS FASTINGPERFORMED BY: WallyAsc[facility] Hospital6370 [facility] [id number] AFP, Serum, Tumor Marker 1.8 ng/mL (Normal) Range: 0.0-8.3 Comments: Jona ECLIA methodology :58 LIPID PANEL (97477) Comments: PATIENT WAS FASTINGPERFORMED BY: WallyAsc[facility] Hospital6370 [facility] [id number]; non-emergent till apt LDL/HDL Ratio 5.2 {ratio_units} [...] degree relatives should be collected. J Clin Agcaidi8188;5:133-140 LDL Cholesterol Calc 197 mg/dL (Abnormal) Range: 0-99 VLDL Cholesterol Celso 31 mg/dL (Normal) Range: 5-40 HDL Cholesterol 38 mg/dL (Abnormal) Comments: According to ATP-III Guidelines, HDL-C >59 mg/dL is considered anegative risk factor for CHD. Triglycerides 156 mg/dL (Abnormal) Range: 0-149 Cholesterol, Total 266 mg/dL (Abnormal) Range: 100-199 :46 Protein Electro, Random Urine Comments: PERFORMED BY: SkoutHackettstown Medical CenterJlqqup8771 [facility] [id number] Please note: SPRCS (Normal) Comments: Protein electrophoresis scan will follow via computer, mail, orcourier delivery. M-Darius, % Not Observed % (Normal) Gamma Globulin, U 12.5 % (Normal) Beta Globulin, U 31.8 % (Normal) Pepzi-0-Ykwgoqta, U 16.7 % (Normal) Acvau-7-Ktntobcd, U 8.1 % (Normal) Albumin, U 30.9 % (Normal) Protein,Total,Urine <4.0 mg/dL (Normal) Range: 0.0-15.0 Comments: Verified by repeat analysis :46 Protein Electro.,S Comments: PERFORMED BY: LabCoHackettstown Medical CenterCxrjff2152 [facility] [id number] Please note: SPRCS (Normal) Comments: Protein electrophoresis scan will follow via computer, mail, orcourier delivery. A/G Ratio 1.4 (Normal) Range: 0.7-2.0 Globulin, Total 3.1 g/dL (Normal) Range: 2.0-4.5 M-Darius Not Observed g/dL (Normal) Gamma Globulin 0.9 g/dL (Normal) Range: 0.5-1.6 Beta Globulin 1.1 g/dL (Normal) Range: 0.6-1.3 Gtuaj-9-Devurnuo 0.9 g/dL (Normal) Range: 0.4-1.2 Txltr-7-Owtfzuzs 0.2 g/dL (Normal) Range: 0.1-0.4 Albumin 4.2 g/dL (Normal) Range: 3.2-5.6 :46 CBC W/AUTO DIFF WBC (75502) Comments: PERFORMED BY: LabCoHackettstown Medical CenterNbcurh3658 [facility] [id number] Immature Grans (Abs) 0.0 {x10E3/uL} (Normal) Range: [...] :46 METABOLIC PANEL, COMPREHENSIVE Comments: PERFORMED BY: LabCoHackettstown Medical CenterYovchk3390 [facility] [id number] (87939) ALT (SGPT) 31 [iU]/L (Normal) Range: 0-32 [...] 80 mg/dL (Normal) Range: 65-99 :46 PARATHORMONE (83495) Comments: PERFORMED BY: [facility] Oxwwiq4153 [facility] [id number] PTH, Intact 16 pg/mL (Normal) Range: 15-65 :46 Vitamin D Hydroxy (62760) Comments: PERFORMED BY: [facility] Ubqwyl5672 [facility] [id number] Vitamin D, 25-Hydroxy 47.0 ng/mL (Normal) Range: 30.0-100.0 Comments: Vitamin D deficiency has been defined by the Pine Level ofMedicine and an Endocrine Society practice guideline as alevel of serum 25-OH vitamin D less than 20 ng/mL (1,2).The Endocrine Society went on to further define vitamin Dinsufficiency as a level between 21 and 29 ng/mL (2).1. IOM (Pine Level of Medicine). 2010. Dietary reference intakes for calcium and D. [place]: The National Academies Press.2. Mayur MF, Scar LAWRENCE, Claribel CAMP, et al. Evaluation, treatment, and prevention of vitamin D deficiency: an Endocrine Society clinical practice guideline. JCEM. 2010; 96(7):1911-30. :46 TSH (43757) Comments: PERFORMED BY: [facility] Yjhuhz8721 [facility] [id number] TSH 4.390 {uIU/mL} (Normal) Range: 0.450-4.500 :46 LIPID PANEL (78150) Comments: PERFORMED BY: LabAsc[facility] Hospital6370 [facility] [id number]; non-emergent till apt LDL/HDL Ratio 4.0 {ratio_units} [...] PANEL, COMPREHENSIVE Comments: PATIENT WAS FASTINGPERFORMED BY: [facility] [id number] (52901) ALT (SGPT) 23 [iU]/L (Normal) Range: 0-32 [...] DIFF WBC Comments: PATIENT WAS FASTINGPERFORMED BY: Human LongevityDublin [place] [id number] Information: [id number] (29831) Immature Grans (Abs) 0.0 {x10E3/uL} (Normal) Range: [...] {x10E3/uL} (Normal) Range: 3.4-10.8 :08 LIPID PANEL (22106) Comments: PATIENT WAS FASTINGPERFORMED BY: JOJO LabAsc[facility]6370 [facility] [id number]; non-emergent till apt LDL/HDL Ratio 4.7 {ratio_units} [...] Glutamyl Transferase) Comments: PATIENT WAS FASTINGPERFORMED BY: [facility] [place] [address] [id number] (52634) GGT 11 [iU]/L (Normal) Range: 0-60 :08 PNWXC-NGHDRUEWCCZ-WZLMS (45472) Comments: PATIENT WAS FASTINGPERFORMED BY: [facility] [place] [address] [id number] AFP, Serum, Tumor Marker 1.6 ng/mL (Normal) Range: 0.0-8.3 Comments: Jona ECLIA methodology :08 PTT (Activated Partial Comments: PATIENT WAS FASTINGPERFORMED BY: [facility]6370 [facility] [id number] Thromboplastin Time) (84796) aPTT 27 {sec} (Normal) Range: 24-33 Comments: This test has not been validated for monitoring unfractionated heparintherapy. aPTT-based therapeutic ranges for unfractionated heparintherapy have not been established. For general guidelines onHeparin monitoring, refer to the [facility] Directory of Services. :08 PT (Prothrobim Time) (56413) Comments: PATIENT WAS FASTINGPERFORMED BY: [facility]6370 [facility] [id number] Prothrombin Time 10.8 {sec} (Normal) Range: 9.1-12.0 INR 1.0 (Normal) Range: 0.8-1.2 Comments: Reference interval is for non-anticoagulated patients. . Suggested INR therapeutic range for Vitamin K anta gonist therapy: Standard Dose (moderate intensity therapeutic range): 2.0 - 3.0 Higher intensity therapeutic range 2.5 - 3.5 :08 Vitamin D Hydroxy (98768) Comments: PATIENT WAS FASTINGPERFORMED BY: SkoutHackettstown Medical CenterAtclya8830 [facility] [id number] Vitamin D, 25-Hydroxy 43.7 ng/mL (Normal) Range: 30.0-100.0 Comments: Vitamin D deficiency has been defined by the Pine Level ofMedicine and an Endocrine Society practice guideline as alevel of serum 25-OH vitamin D less than 20 ng/mL (1,2).The Endocrine Society went on to further define vitamin Dinsufficiency as a level between 21 and 29 ng/mL (2).1. IOM (Pine Level of Medicine). 2010. Dietary reference intakes for calcium and D. [place]: The National Academies Press.2. Mayur MF, Scar NC, Claribel CAMP, et al. Evaluation, treatment, and prevention of vitamin D deficiency: an Endocrine Society clinical practice guideline. JCEM. 2010; 96(7):1911-30. 4-Ils-999848:17 CBC (AUTO) (25034) Comments: PATIENT WAS FASTINGPERFORMED BY: Skout Maforz2093 [facility] [id number] Platelets 159 {x10E3/uL} (Normal) Range: 150-379 RDW 13.2 % (Normal) Range: 12.3-15.4 MCHC 32.9 g/dL (Normal) Range: 31.5-35.7 MCH 29.5 pg (Normal) Range: 26.6-33.0 MCV 90 fL (Normal) Range: 79-97 Hematocrit 45.6 % (Normal) Range: 34.0-46.6 Hemoglobin 15.0 g/dL (Normal) Range: 11.1-15.9 RBC 5.09 {x10E6/uL} (Normal) Range: 3.77-5.28 WBC 4.2 {x10E3/uL} (Normal) Range: 3.4-10.8 7-Bjv-138088:17 Vitamin D Hydroxy (97658) Comments: PATIENT WAS FASTINGPERFORMED BY: SkoutHackettstown Medical CenterNveyqz8108 [facility] [id number] Vitamin D, 25-Hydroxy 52.9 ng/mL (Normal) Range: 30.0-100.0 Comments: Vitamin D deficiency has been defined by the Pine Level ofMedicine and an Endocrine Society practice guideline as alevel of serum 25-OH vitamin D less than 20 ng/mL (1,2).The Endocrine Society went on to further define vitamin Dinsufficiency as a level between 21 and 29 ng/mL (2).1. IOM (Pine Level of Medicine). 2010. Dietary reference intakes for calcium and D. [place]: The National Academies Press.2. Mayur MF, Scar NC, Claribel CAMP, et al. Evaluation, treatment, and prevention of vitamin D deficiency: an Endocrine Society clinical practice guideline. JCEM. 2010; 96(7):1911-30. 8-Cbi-168030:17 METABOLIC PANEL, Comments: PATIENT WAS FASTINGPERFORMED BY: LabCoHackettstown Medical CenterHlssvu9468 [facility] [id number] Information: [id number] COMPREHENSIVE (37491) ALT (SGPT) 25 [iU]/L (Normal) Range: 0-32 [...] Glucose, Serum 82 mg/dL (Normal) Range: 65-99 5-Xji-292819:17 LIPID PANEL (68875) Comments: PATIENT WAS FASTINGPERFORMED BY: [facility] PharmatechColumb[facility] [id number] LDL/HDL Ratio 3.8 {ratio_units} Range: 0.0-3.2 (Abnormal) [...] Negative (Normal) Comments: PATIENT NOT FASTINGPERFORMED BY: [employer]70 [facility] [id number] 418:58 EIA :58 Ova + Parasite Exam Comments: PATIENT NOT FASTINGPERFORMED BY: [place] 7060070 [facility] [id number] Result 1 NOCP (Normal) Comments: No ova, cysts, or parasites seen. Ova + Parasite Exam Final report (Normal) Comments: These results were obtained using wet preparation(s) and trichromestained smear. This test does not include testing for Cryptosporidiumparvum, Cyclospora, or Microsporidia. :58 Stool Culture Comments: PATIENT NOT FASTINGPERFORMED BY: [place] 7060070 [facility] [id number] Information: SRC:ST STOOL E coli Shiga Toxin EIA Negative (Normal) Result 1 NCI (Normal) Comments: No Campylobacter species isolated. Campylobacter Culture Final report (Normal) Result 1 NSS (Normal) Comments: No Salmonella or Shigella recovered. Salmonella/Shigella Screen Final report (Normal) :58 White Blood Cells (WBC), Comments: PATIENT NOT FASTINGPERFORMED BY: [place] [facility] [id number] Stool Result 1 NWBC (Normal) Comments: No white blood cells seen. White Blood Cells (WBC), Final report (Normal) Comments: Reference Range: None Seen Stool :09 CRE CREAT 0.6 mg/dL (Normal) Range: 0.6-1.0 :36 CBC WITH MANUAL DIFF Comments: PATIENT WAS FASTINGPERFORMED BY: [place] 7060070 [facility] [id number] Information: [id number] (38356) Immature Grans (Abs) 0.0 {x10E3/uL} (Normal) Range: [...] 3.77-5.28 WBC 5.0 {x10E3/uL} (Normal) Range: 3.4-10.8 01-Apr-20148:36 METABOLIC PANEL, COMPREHENSIVE Comments: PATIENT WAS FASTINGPERFORMED BY: LabCoHackettstown Medical CenterZoxcaj7750 [facility] [id number] (66289) ALT (SGPT) 25 [iU]/L (Normal) Range: 0-32 [...] mg/dL (Normal) Range: 65-99 :36 LIPID PANEL (60951) Comments: PATIENT WAS FASTINGPERFORMED BY: [employer]70 [facility] [id number] LDL/HDL Ratio 3.4 {ratio_units} (Abnormal) Range: 0.0-3.2 LDL Cholesterol Calc 129 mg/dL (Abnormal) Range: 0-99 HDL Cholesterol 38 mg/dL (Abnormal) Comments: According to ATP-III Guidelines, HDL-C >59 mg/dL is considered anegative risk factor for CHD. VLDL Cholesterol Celso 22 mg/dL (Normal) Range: 5-40 Cholesterol, Total 189 mg/dL (Normal) Range: 100-199 Triglycerides 109 mg/dL (Normal) Range: 0-149 :36 Vitamin D Hydroxy (62739) Comments: PATIENT WAS FASTINGPERFORMED BY: [employer] LabCoSIMTEKSgzokl2937 [facility] [id number] Vitamin D, 25-Hydroxy 55.9 ng/mL (Normal) Range: 30.0-100.0 Comments: Vitamin D deficiency has been defined by the [place] Level ofMedicine and an Endocrine Society practice guideline as alevel of serum 25-OH vitamin D less than 20 ng/mL (1,2).The Endocrine Society went on to further define vitamin Dinsufficiency as a level between 21 and 29 ng/mL (2).1. IOM ([place] Level of Medicine). 2010. Dietary reference intakes for calcium and D. [place]: The National Academies Press.2. Mayur MF, Scar NC, Claribel CAMP, et al. Evaluation, treatment, and prevention of vitamin D deficiency: an Endocrine Society clinical practice guideline. JCEM. 2010; 96(7):1911-30. :36 [id number]-RJZGOBJORQJ-VTIOI (77210) Comments: PATIENT WAS FASTINGPERFORMED BY: [facility] [id number] AFP, Serum, Tumor Marker 1.5 ng/mL (Normal) Range: 0.0-8.3 Comments: Jona ECLIA methodology :36 PTT (Activated Partial Comments: PATIENT WAS FASTINGPERFORMED BY: [facility] [id number] Thromboplastin Time) (20814) aPTT 27 {sec} (Normal) Range: 24-33 Comments: This test has not been validated for monitoring unfractionated heparintherapy. aPTT-based therapeutic ranges for unfractionated heparintherapy have not been established. For general guidelines onHeparin monitoring, refer to the [facility] [place] Directory of Services. :36 PT (Prothrobim Time) (47968) Comments: PATIENT WAS FASTINGPERFORMED BY: [facility] [id number] Prothrombin Time 10.7 {sec} (Normal) Range: 9.1-12.0 INR 1.0 (Normal) Range: 0.8-1.2 Comments: Reference interval is for non-anticoagulated patients. . Suggested INR therapeutic range for Vitamin K anta gonist therapy: Standard Dose (moderate intensity therapeutic range): 2.0 - 3.0 Higher intensity therapeutic range 2.5 - 3.5 :50 CBC WITH MANUAL DIFF Comments: PATIENT NOT FASTINGPERFORMED BY: [facility] [id number] Information: [id number] (20039) Immature Grans (Abs) 0.0 {x10E3/uL} (Normal) Range: [...] 3.77-5.28 WBC 4.0 {x10E3/uL} (Normal) Range: 3.4-10.8 67-Ifu-85390:50 LIPID PANEL (37012) Comments: PATIENT NOT FASTINGPERFORMED BY: LabCoHackettstown Medical CenterNesbjq0921 [facility] [id number] LDL/HDL Ratio 4.0 {ratio_units} (Abnormal) Range: 0.0-3.2 [...] PANEL, COMPREHENSIVE Comments: PATIENT NOT FASTINGPERFORMED BY: Skout Oynsqh2405 [facility] [id number] (43590) ALT (SGPT) 58 [iU]/L (Abnormal) Range: 0-32 [...] (Normal) Range: 65-99 :50 Vitamin D Hydroxy (72270) Comments: PATIENT NOT FASTINGPERFORMED BY: [facility]outHackettstown Medical CenterOyaile7143 [facility] [id number] Vitamin D, 25-Hydroxy 46.4 ng/mL (Normal) Range: 30.0-100.0 Comments: Vitamin D deficiency has been defined by the [place] Level ofMedicine and an Endocrine Society practice guideline as alevel of serum 25-OH vitamin D less than 20 ng/mL (1,2).The Endocrine Society went on to further define vitamin Dinsufficiency as a level between 21 and 29 ng/mL (2).1. IOM ([place] Level of Medicine). 2010. Dietary reference intakes for calcium and D. [place]: The National Academies Press.2. Mayur MF, Scar LAWRENCE, Claribel CAMP, et al. Evaluation, treatment, and prevention of vitamin D deficiency: an Endocrine Society clinical practice guideline. JCEM. 2010; 96(7):1911-30. 15-Yrh-640847:33 METABOLIC PANEL, COMPREHENSIVE Comments: PATIENT WAS FASTINGPERFORMED BY: LabCoHackettstown Medical CenterYxbbkt8376 [facility] [id number] (60443) ALT (SGPT) 50 [iU]/L (Abnormal) Range: 0-32 [...] Glucose, Serum 90 mg/dL (Normal) Range: 65-99 04-Ske-435076:33 Vitamin D Hydroxy (13978) Comments: PATIENT WAS FASTINGPERFORMED BY: LabCoHackettstown Medical CenterHaelsy8463 [facility] [id number] Vitamin D, 25-Hydroxy 47.0 ng/mL (Normal) Range: 30.0-100.0 Comments: Vitamin D deficiency has been defined by the [place] Level ofMedicine and an Endocrine Society practice guideline as alevel of serum 25-OH vitamin D less than 20 ng/mL (1,2).The Endocrine Society went on to further define vitamin Dinsufficiency as a level between 21 and 29 ng/mL (2).1. IOM ([place] Level of Medicine). 2010. Dietary reference intakes for calcium and D. [place]: The National Academies Press.2. Mayur MF, Scar NC, Claribel CAMP, et al. Evaluation, treatment, and prevention of vitamin D deficiency: an Endocrine Society clinical practice guideline. JCEM. 2010; 96(7):1911-30. 57-Weg-500990:33 CBC WITH MANUAL DIFF Comments: PATIENT WAS FASTINGPERFORMED BY: LabCoHackettstown Medical CenterBadlcx9500 [facility] [id number] Information: [id number] (75708) Immature Grans (Abs) 0.0 {x10E3/uL} (Normal) Range: [...] WBC 3.9 {x10E3/uL} (Normal) Range: 3.4-10.8 :33 COFCI-JBGCFTBZJOW-WWFRD (50836) Comments: PATIENT WAS FASTINGPERFORMED BY: [address] [id number] AFP, Serum, Tumor Marker 2.1 ng/mL (Normal) Range: 0.0-8.3 Comments: Jona ECLIA methodology :33 PTT (Activated Partial Comments: PATIENT WAS FASTINGPERFORMED BY: [address] [id number] Thromboplastin Time) (67577) aPTT 26 {sec} (Normal) Range: 24-33 Comments: This test has not been validated for monitoring unfractionated heparintherapy. aPTT-based therapeutic ranges for unfractionated heparintherapy have not been established. For general guidelines onHeparin monitoring, refer to the [facility] Directory of Services. :33 PT (Prothrobim Time) (13021) Comments: PATIENT WAS FASTINGPERFORMED BY: [address] [id number] INR 1.1 (Normal) Range: 0.8-1.2 Comments: Reference interval is for non-anticoagulated patients. . Suggested INR therapeutic range for Vitamin K anta gonist therapy: Standard Dose (moderate intensity therapeutic range): 2.0 - 3.0 Higher intensity therapeutic range 2.5 - 3.5 Prothrombin Time 11.0 {sec} (Normal) Range: 9.1-12.0 01-Qkm-017608:33 LIPID PANEL (20723) Comments: PATIENT WAS FASTINGPERFORMED BY: LabCoHackettstown Medical CenterNaaqth3338 [facility] [id number] LDL/HDL Ratio 4.3 {ratio_units} (Abnormal) Range: 0.0-3.2 LDL Cholesterol Calc 170 mg/dL (Abnormal) Range: 0-99 VLDL Cholesterol Eclso 26 mg/dL (Normal) Range: 5-40 HDL Cholesterol 40 mg/dL (Normal) Comments: According to ATP-III Guidelines, HDL-C >59 mg/dL is considered anegative risk factor for CHD. Triglycerides 129 mg/dL (Normal) Range: 0-149 Cholesterol, Total 236 mg/dL (Abnormal) Range: 100-199 :00 SPINE LUMBAR (ROUTINE) Radiology Report See Note [...] Hamilton M.D.April 23, 2013 at 4:48:16 PM [id number] Signed PV/PV If you are the referring physician and would like to consult with theradiologis t who provided this interpretation, please contact Leann Flynn M.D. at [phone]. If this radiologist is unavailable, youwillbe directed to another radiologist to assist. If you are a patient w ith a question regarding this report, pleasecontactyour referring physician directly. Professional Interpretation Provided By: [employer], Phone , These documents contain legally protected and confidential healthinformation intended only for the use of the individual or entity namedabove. If you are not the intended recipient, you are hereby notifiedthatany disclosure, c opying, distribution, or other use of these documents isstrictly prohibited. If you have received this information in error,pleasenotify the sender immediately and arrange for the return or destructiono [facility]ere documents. Dictated on 04/23/131647 by Douglas BARNETT,LeannTranscribed on 04/23/131649 by ITS IMPORTSign by Douglas BARNETT,Leann on 04/23/131650 Sign by: Leann Cole MD 44-Oty-670845:43 C-REACTIVE PROTEIN (54351) Comments: PATIENT NOT FASTINGPERFORMED BY: [employer] Aiyomi0203 [facility] [id number] C-Reactive Protein, Quant 0.7 mg/L (Normal) Range: 0.0-4.9 :43 SED RATE ERYTHROCYTE Comments: PATIENT NOT FASTINGPERFORMED BY: [facility] Ruxjcp3834 [facility] [id number] Information: [id number] (84387) Sedimentation Rate-Westergren 2 mm/h (Normal) Range: 0-40 :50 METABOLIC PANEL, COMPREHENSIVE Comments: PATIENT WAS FASTINGPERFORMED BY: [employer] Idjeqx1655 [facility] [id number] (90342) ALT (SGPT) 66 [iU]/L (Abnormal) Range: 0-32 [...] (Normal) Range: 65-99 :50 Vitamin D Hydroxy (04061) Comments: PATIENT WAS FASTINGPERFORMED BY: [employer]6370 [facility] [id number] Vitamin D, 25-Hydroxy 44.8 ng/mL (Normal) Range: 30.0-100.0 Comments: Vitamin D deficiency has been defined by the [place] Level ofMedicine and an Endocrine Society practice guideline as alevel of serum 25-OH vitamin D less than 20 ng/mL (1,2).The Endocrine Society went on to further define vitamin Dinsufficiency as a level between 21 and 29 ng/mL (2).1. IOM ([place] Level of Medicine). 2010. Dietary reference intakes for calcium and D. [place]: The National Academies Press.2. Mayur MF, Scar LAWRENCE, Claribel CAMP, et al. Evaluation, treatment, and prevention of vitamin D deficiency: an Endocrine Society clinical practice guideline. JCEM. 2010; 96(7):1911-30. :50 LIPID PANEL (93806) Comments: PATIENT WAS FASTINGPERFORMED BY: [employer] LabCo Kbdnzq1208 [facility] [id number] LDL/HDL Ratio 4.6 {ratio_units} (Abnormal) Range: 0.0-3.2 HDL Cholesterol 36 mg/dL (Abnormal) Comments: According to ATP-III Guidelines, HDL-C >59 mg/dL is considered anegative risk factor for CHD. LDL Cholesterol Calc 166 mg/dL (Abnormal) Range: 0-99 Triglycerides 148 mg/dL (Normal) Range: 0-149 VLDL Cholesterol Celso 30 mg/dL (Normal) Range: 5-40 Cholesterol, Total 232 mg/dL (Abnormal) Range: 100-199 03-Apr-20137:50 CBC WITH MANUAL DIFF Comments: PATIENT WAS FASTINGPERFORMED BY: [facility]6370 [facility] [id number] Information: [id number] (37030) Immature Grans (Abs) 0.0 {x10E3/uL} (Normal) Range: [...] of these values in the reference population. 11-Lil-74020:00 KNEE 4 OR MORE VIEWS Radiology Report [...] Clinton D.O.January 13, 2013 at 10:54:29 AM [id number] Signed DS/DS If you a re the referring physician and would like to consult with theradiologist who provided this interpretation, please contact Alli Clinton D.O. at [phone]. If this radiologist is unavailable, you will [...] METABOLIC PANEL, Comments: PATIENT WAS FASTINGPERFORMED BY: LabUniversity [facility] CareXnkywg6912 [facility] [id number] Information: [id number] COMPREHENSIVE (21681) ALT (SGPT) 50 [iU]/L (Abnormal) Range: 0-32 [...] years 17 - 26 > 12 years - Chloride, Serum 106 mmol/L (Normal) Range: 97-108 [...] mg/dL (Normal) Range: 65-99 :30 LIPID PANEL (12423) Comments: PATIENT WAS FASTINGPERFORMED BY: [facility]chColumb[facility] [id number] LDL/HDL Ratio 3.7 {ratio_units} (Abnormal) Range: 0.0-3.2 LDL Cholesterol Calc 131 mg/dL (Abnormal) Range: 0-99 VLDL Cholesterol Celso 42 mg/dL (Abnormal) Range: 5-40 Cholesterol, Total 208 mg/dL (Abnormal) Range: 100-199 HDL Cholesterol 35 mg/dL (Abnormal) Comments: According to ATP-III Guidelines, HDL-C >59 mg/dL is considered anegative risk factor for CHD. Triglycerides 208 mg/dL (Abnormal) Range: 0-149 82-Omn-088158:32 Protein Electro, Random Urine Comments: PATIENT NOT FASTINGPERFORMED BY: [facility]6370 [employer] [facility]Columb[facility] [id number] Please note: SPRCS (Normal) Comments: Protein electrophoresis scan will follow via computer, mail, orcourier delivery. Beta Globulin, U 30.6 % (Normal) Gamma Globulin, U 31.1 % (Normal) M-Darius, % Not Observed % (Normal) Rilkq-4-Ndumixor, U 18.2 % (Normal) Soxgy-9-Dnzgdhhf, U 2.5 % (Normal) Albumin, U 17.6 % (Normal) Protein,Total,Urine 3.1 mg/dL (Normal) Range: 0.0-15.0 :32 Protein Electro.,S Comments: PATIENT NOT FASTINGPERFORMED BY: [place] [address]0070 [facility] [id number] Information: SRC: URINE A/G Ratio 1.7 (Normal) Range: 0.7-2.0 Please note: SPRCS (Normal) Comments: Protein electrophoresis scan will follow via computer, mail, orcourier delivery. Globulin, Total 2.6 g/dL (Normal) Range: 2.0-4.5 M-Darius Not Observed g/dL (Normal) Beta Globulin 1.0 g/dL (Normal) Range: 0.6-1.3 Gamma Globulin 0.7 g/dL (Normal) Range: 0.5-1.6 Anmvz-5-Bmdhkjvc 0.1 g/dL (Normal) Range: 0.1-0.4 Ounnk-7-Agepzhnj 0.7 g/dL (Normal) Range: 0.4-1.2 Albumin 4.5 g/dL (Normal) Range: 3.2-5.6 Protein, Total, Serum 7.1 g/dL (Normal) Range: 6.0-8.5 76-Tpg-171895:32 PHLPT-PHOWIJIIGEI-RSEGA (17645) Comments: PATIENT NOT FASTINGPERFORMED BY: [facility]6370 [facility] [id number] AFP, Serum, Tumor Marker 1.5 ng/mL (Normal) Range: 0.0-8.3 Comments: Jona ECLIA methodology 01-Ikr-438154:32 LIPID PANEL (27368) Comments: PATIENT NOT FASTINGPERFORMED BY: [facility]6370 [facility] [id number] LDL Cholesterol Calc 132 mg/dL (Abnormal) Range: 0-99 LDL/HDL Ratio 3.5 {ratio_units} (Abnormal) Range: 0.0-3.2 HDL Cholesterol 38 mg/dL (Abnormal) Comments: According to ATP-III Guidelines, HDL-C >59 mg/dL is considered anegative risk factor for CHD. Triglycerides 160 mg/dL (Abnormal) Range: 0-149 VLDL Cholesterol Celso 32 mg/dL (Normal) Range: 5-40 Cholesterol, Total 202 mg/dL (Abnormal) Range: 100-199 13-Ulx-230108:32 PARATHORMONE (81197) Comments: PATIENT NOT FASTINGPERFORMED BY: [place] 7060070 [facility] [id number] PTH, Intact 16 pg/mL (Normal) Range: 15-65 30-Mko-914478:32 PHOSPHORUS (82221) Comments: PATIENT NOT FASTINGPERFORMED BY: [place] 7060070 [facility] [id number] Phosphorus, Serum 3.7 mg/dL (Normal) Range: 2.5-4.5 22-Djm-468649:32 PTT (Activated Partial Comments: PATIENT NOT FASTINGPERFORMED BY: [place] [address]0070 [facility] [id number] Thromboplastin Time) (93517) aPTT 25 {sec} (Normal) Range: 24-33 Comments: This test has not been validated for monitoring unfractionated heparintherapy. aPTT-based therapeutic ranges for unfractionated heparintherapy have not been established. For general guidelines onHeparin monitoring, refer to the [facility] Directory of Services. 66-Tui-651845:32 PT (Prothrobim Time) (01561) Comments: PATIENT NOT FASTINGPERFORMED BY: [facility]6370 [facility] [id number] INR 1.0 (Normal) Range: 0.8-1.2 Comments: Reference interval is for non-anticoagulated patients. . Suggested INR therapeutic range for Vitamin K anta gonist therapy: Standard Dose (moderate intensity therapeutic range): 2.0 - 3.0 Higher intensity therapeutic range 2.5 - 3.5 Prothrombin Time 10.9 {sec} (Normal) Range: 9.1-12.0 :01 Calcium, 24Hr Urine Comments: PERFORMED BY: JOJO [facility]6370 [facility] [id number] Information: 08/26/@830AM 08/27@830AM Calcium, Urine 24hr 208.0 {mg/24_hr} (Normal) Range: 100.0-300.0 Calcium, Urine 8.0 mg/dL (Normal) 92-Lhv-318525:35 BILAT SCRN DIGITAL & CAD Radiology Report [...] Bryan M.D.July 18, 2012 at 1:56:05 PM [id number] Signed GP/GP If you are the referring physician and would like to consult with theradiologist who provided this interpretation, please contact Nusrat Cain at [phone]. If this radiologist is unavailable, youwill be directed to another radiologist to assist. If you are a patient with a question regarding this report, pleasecontactyour referring physician directly. Professional Interpretation Provided By: [employer], Phone , Thes e documents contain legally [...] 07/18/12 1403 Sign by: Constantino Bryan MD 26-Nfa-685113:35 DEXA BONE DENSITY STUDY (HP) Radiology Report [...] Bryan M.D.July 18, 2012 at 1:48:07 PM [id number] Signed GP/GP If you are the referring physician a nd would like to consult with theradiologist who provided this interpretation, please contact Nusrat Cain at [phone]. If this radiologist is unavailable, youwill be directed to another radiologist to assist. If you are a patient with a question regarding this report, pleasecontactyour referring physician directly. Professional Interpretation Provided By: [employer], Phone , These documents contain legally protected [...] 1 353 Sign by: Constantino Bryan MD 74-Ssx-03361:38 TSH (43521) Comments: PATIENT WAS FASTINGPERFORMED BY: [facility]6370 [facility] [id number] TSH 2.950 {uIU/mL} (Normal) Range: 0.450-4.500 :38 CBC WITH MANUAL DIFF Comments: PATIENT WAS FASTINGPERFORMED BY: JOJO [facility] Nmkxzt1817 [facility] [id number] Information: [id number] (99090) Immature Grans (Abs) 0.0 {x10E3/uL} (Normal) Range: [...] 3.77-5.28 WBC 4.2 {x10E3/uL} (Normal) Range: 4.0-10.5 :38 METABOLIC PANEL, COMPREHENSIVE Comments: PATIENT WAS FASTINGPERFORMED BY: [employer] Ttbsjx3047 [facility] [id number] (22638) ALT (SGPT) 69 [iU]/L (Abnormal) Range: 0-40 [...] mg/dL (Normal) Range: 65-99 :38 LIPID PANEL (10015) Comments: PATIENT WAS FASTINGPERFORMED BY: [employer]out Enrawh1593 [facility] [id number] LDL/HDL Ratio 4.6 {ratio_units} (Abnormal) Range: 0.0-3.2 LDL Cholesterol Calc 175 mg/dL (Abnormal) Range: 0-99 HDL Cholesterol 38 mg/dL (Abnormal) Comments: According to ATP-III Guidelines, HDL-C >59 mg/dL is considered anegative risk factor for CHD. VLDL Cholesterol Celso 23 mg/dL (Normal) Range: 5-40 Triglycerides 114 mg/dL (Normal) Range: 0-149 Cholesterol, Total 236 mg/dL (Abnormal) Range: 100-199 :38 Vitamin D Hydroxy (03489) Comments: PATIENT WAS FASTINGPERFORMED BY: [facility] Oinsqd9788 [facility] Hospitalch[facility] [place] [id number] Vitamin D, 25-Hydroxy 36.3 ng/mL (Normal) Range: 30.0-100.0 Comments: Vitamin D deficiency has been defined by the [place] Level ofMedicine and an Endocrine Society practice guideline as alevel of serum 25-OH vitamin D less than 20 ng/mL (1,2).The Endocrine Society went on to further define vitamin Dinsufficiency as a level between 21 and 29 ng/mL (2).1. IOM ([place] Level of Medicine). 2010. Dietary reference intakes for calcium and D. [place]: The National Academies Press.2. Mayur MF, Scar LAWRENCE, Claribel CAMP, et al. Evaluation, treatment, and prevention of vitamin D deficiency: an Endocrine Society clinical practice guideline. JCEM. 2010; 96(7):1911-30. :45 BILAT SCRN DIGITAL & CAD Radiology Report [...] MANUAL DIFF Comments: PATIENT WAS FASTINGPERFORMED BY: LabCoHackettstown Medical CenterHjwpny2671 [facility] [id number] Information: [id number] (29405) Immature Grans (Abs) 0.0 {x10E3/uL} (Normal) Range: [...] COMPREHENSIVE Comments: PATIENT WAS FASTINGPERFORMED BY: [facility]Co Brkrmq9839 [facility] [id number] (20231) ALT (SGPT) 55 [iU]/L (Abnormal) Range: 0-40 [...] Glucose, Serum 93 mg/dL (Normal) Range: 65-99 :57 Vitamin D Hydroxy (66309) Comments: PATIENT WAS FASTINGPERFORMED BY: Skout Ddecke1823 [facility] [id number] Vitamin D, 25-Hydroxy 49.4 ng/mL (Normal) Range: 30.0-100.0 Comments: Vitamin D deficiency has been defined by the [place] Level ofMedicine and an Endocrine Society practice guideline as alevel of serum 25-OH vitamin D less than 20 ng/mL (1,2).The Endocrine Society went on to further define vitamin Dinsufficiency as a level between 21 and 29 ng/mL (2).1. IOM ([place] Level of Medicine). 2011. Dietary reference intakes for calcium and D. [place]: The National Academies Press.2. Mayur MF, Scar LAWRENCE, Claribel CAMP, et al. Evaluation, treatment, and prevention of vitamin D deficiency: an Endocrine Society clinical practice guideline. JCEM. 2010; 96(7):1911-30. :57 LIPID PANEL (54909) Comments: PATIENT WAS FASTINGPERFORMED BY: [facility]6370 [facility] [id number] LDL/HDL Ratio 3.0 {ratio_units} (Normal) Range: 0.0-3.2 [...] FUNCTION PANEL Comments: PATIENT WAS FASTINGPERFORMED BY: Skout Hrriln7638 [facility] [id number] Information: [id number] (55928) ALT (SGPT) 57 [iU]/L (Abnormal) Range: 0-40 Alkaline Phosphatase, S 73 [iU]/L (Normal) Range: 25-165 AST (SGOT) 37 [iU]/L (Normal) Range: 0-40 Bilirubin, Direct 0.12 mg/dL (Normal) Range: 0.00-0.40 Albumin, Serum 4.7 g/dL (Normal) Range: 3.5-4.8 Bilirubin, Total 0.6 mg/dL (Normal) Range: 0.0-1.2 Protein, Total, Serum 7.2 g/dL (Normal) Range: 6.0-8.5 :38 LIPID PANEL (79697) Comments: PATIENT WAS FASTINGPERFORMED BY: [employer] [facility]terSal[facility] [id number] LDL/HDL Ratio 3.4 {ratio_units} (Abnormal) Range: 0.0-3.2 LDL Cholesterol Calc 139 mg/dL (Abnormal) Range: 0-99 VLDL Cholesterol Celso 20 mg/dL (Normal) Range: 5-40 HDL Cholesterol 41 mg/dL (Normal) Comments: According to ATP-III Guidelines, HDL-C >59 mg/dL is considered anegative risk factor for CHD. Triglycerides 99 mg/dL (Normal) Range: 0-149 Cholesterol, Total 200 mg/dL (Abnormal) Range: 100-199 44-Bqe-319650:33 Vitamin D Hydroxy (22028) Comments: PATIENT NOT FASTINGPERFORMED BY: [employer] Jgpiqx1567 [facility] [id number] Vitamin D, 25-Hydroxy 42.6 ng/mL (Normal) Range: 32.0-100.0 Comments: Effective June 19, 2011 Vitamin D, 25-Hydroxy reference intervals will be changing to 30-100. .Recent studies consider the lower li vince of 32.0 ng/mL to be athreshold for optimal health.Kamari ALLEN. J Nutr. 2004;135(2):317-22. 36-Xxj-811591:33 CBC WITH MANUAL DIFF Comments: PATIENT NOT FASTINGPERFORMED BY: SkoutHackettstown Medical CenterDmnnww1007 [facility] [id number] Information: [id number] , NO DRAW FEE (40074) Immature Grans (Abs) 0.0 {x10E3/uL} (Normal) Range: [...] 3.80-5.10 WBC 4.6 {x10E3/uL} (Normal) Range: 4.0-10.5 5-Osi-160068:10 Metabolic Panel, Basic (61675) Comments: PATIENT NOT FASTINGPERFORMED BY: LabCoHackettstown Medical CenterBexkjc1198 [facility] [id number] Calcium, Serum 9.6 mg/dL (Normal) Range: 8.6-10.2 [...] Glucose, Serum 86 mg/dL (Normal) Range: 65-99 1-Pwx-205169:10 CBC with manual diff Comments: PATIENT NOT FASTINGPERFORMED BY: JOJO [facility] Obwvoh1880 [facility] [id number] Information: [id number] (01757) Baso (Absolute) 0.0 {x10E3/uL} (Normal) Range: 0.0-0.2 [...] {x10E3/uL} (Abnormal) Range: 4.0-10.5 :07 LIPID PANEL (80007) Comments: PATIENT WAS FASTINGPERFORMED BY: [facility] [id number] LDL/HDL Ratio 6.9 {ratio_units} (Abnormal) Range: 0.0-3.2 LDL Cholesterol Calc 254 mg/dL (Abnormal) Range: 0-99 VLDL Cholesterol Celso 29 mg/dL (Normal) Range: 5-40 HDL Cholesterol 37 mg/dL (Abnormal) Comments: According to ATP-III Guidelines, HDL-C >59 mg/dL is considered anegative risk factor for CHD. Cholesterol, Total 320 mg/dL (Abnormal) Range: 100-199 Triglycerides 144 mg/dL (Normal) Range: 0-149 :07 Vitamin D Hydroxy (71647) Comments: PATIENT WAS FASTINGPERFORMED BY: [employer] Tfigqq5241 [facility] [id number] Vitamin D, 25-Hydroxy 27.8 ng/mL (Abnormal) Range: 32.0-100.0 Comments: Recent studies consider the lower limit of 32.0 ng/mL to be athreshold for optimal health.Kamari ALLEN. J Nutr. 2004;135(2):317-22. :07 METABOLIC PANEL, COMPREHENSIVE Comments: PATIENT WAS FASTINGPERFORMED BY: [employer] [facility] [id number] (00530) ALT (SGPT) 61 [iU]/L (Abnormal) Range: 0-40 [...] Glucose, Serum 77 mg/dL (Normal) Range: 65-99 83-Ouu-48570:07 CBC WITH MANUAL DIFF Comments: PATIENT WAS FASTINGPERFORMED BY: [facility] Bjmxai6325 [facility] [id number] Information: [id number] ([id number]) Immature Grans (Abs) 0.0 {x10E3/uL} (Normal) Range: [...] (Normal) Range: 4.0-10.5 :57 Vitamin D Hydroxy (67045) Comments: PATIENT WAS FASTINGPERFORMED BY: [facility]6370 [place] [facility]ity[facility] [id number] Vitamin D, 25-Hydroxy 62.8 ng/mL (Normal) Range: 32.0-100.0 Comments: Recent studies consider the lower limit of 32.0 ng/mL to be athreshold for optimal health.Kamari ALLEN. J Nutr. 2004;135(2):317-22. :57 LIPID PANEL (69079) Comments: PATIENT WAS FASTINGPERFORMED BY: [facility]6370 [place] [facility]ityColumb[facility] [id number] HDL Cholesterol 39 mg/dL (Abnormal) Comments: According to ATP-III Guidelines, HDL-C >59 mg/dL is considered anegative risk factor for CHD. LDL Cholesterol Calc 121 mg/dL (Abnormal) Range: 0-99 LDL/HDL Ratio 3.1 {ratio_units} (Normal) Range: 0.0-3.2 VLDL Cholesterol Celso 23 mg/dL (Normal) Range: 5-40 Cholesterol, Total 183 mg/dL (Normal) Range: 100-199 Triglycerides 116 mg/dL (Normal) Range: 0-149 03-Oct-20108:57 METABOLIC PANEL, COMPREHENSIVE Comments: PATIENT WAS FASTINGPERFORMED BY: [facility]CoHackettstown Medical CenterSvxmbk5386 [facility] [id number] ([id number]) Alkaline Phosphatase, S 74 [iU]/L (Normal) Range: [...] MANUAL DIFF Comments: PATIENT WAS FASTINGPERFORMED BY: [facility]6370 [facility] [id number] Information: [id number] ([id number]) Immature Grans (Abs) 0.0 {x10E3/uL} (Normal) Range: [...] Report See Note (Normal) Comments: Exam Number: [id number] AMMOGRAPHY - BILATERAL SCREENING INDICATION:Routine annual screening [...] of attaching a ResultCode to this exam.ADDENDUM: [id number] HPBI/MDS Reported By: LEANN CHAUDHARI M.D. :49 Vitamin D Hydroxy (32588) Comments: PATIENT NOT FASTINGPERFORMED BY: [employer] Vaiqlu8555 [place] [facility]Columb[facility] [id number] Vitamin D, 25-Hydroxy 48.8 ng/mL (Normal) Range: 32.0-100.0 Comments: Recent studies consider the lower limit of 32.0 ng/mL to be athreshold for optimal health.Kamari ALLEN. J Nutr. 2004;135(2):317-22. :49 LIPID PANEL (61269) Comments: PATIENT NOT FASTINGPERFORMED BY: [employer] Lkyola5419 [facility] StartBullColumb[facility] System [id number] LDL Cholesterol Calc 136 mg/dL (Abnormal) Range: [...] COMPREHENSIVE Comments: PATIENT NOT FASTINGPERFORMED BY: [facility] Uzilol8793 [facility] [id number] ([id number]) Alkaline Phosphatase, S 75 [iU]/L (Normal) Range: [...] DIFF Comments: PATIENT NOT FASTINGPERFORMED BY: JOJO [facility]CoHackettstown Medical CenterLrpcqz9236 [facility] [id number] Information: [id number] (32407) Immature Grans (Abs) 0.0 {x10E3/uL} (Normal) Range: [...] 3.80-5.10 WBC 3.7 {x10E3/uL} (Abnormal) Range: 4.0-10.5 99-Zpk-64168:17 DEXA BONE DENSITY STUDY (HP) Radiology Report See Note (Normal) Comments: Exam Number: [id number] CLINICAL:This is a 69-year-old female patient with history osteopenia. EXAMINATION:DUAL ENERGY X-RAY ABSORPTIOMETRY / DEXA. TECHNIQUE:Bone Density Measurements (BMD) of lumbar spi ne and bilateral hipswere obtained using a Rackwise scanner.. COMPARISON:Comparison is made with prior study [...] Osteoporosis Foundation http://www.nof.org Reported By: CONSTANTINO BRYAN 59-Gvl-11887:23 CBC WITH MANUAL DIFF Comments: PATIENT WAS FASTINGPERFORMED BY: [facility]CoHackettstown [facility] CenterMfzngf4189 [facility] [id number] Information: [id number] ([id number]) Immature Grans (Abs) 0.0 {x10E3/uL} (Normal) Range: [...] (Abnormal) Range: 4.0-10.5 :23 Vitamin D Hydroxy (75782) Comments: PATIENT WAS FASTINGPERFORMED BY: [facility]CoH[facility]stown [facility] CenterNzeuag5091 [facility] [id number] Vitamin D, 25-Hydroxy 28.0 ng/mL (Abnormal) Range: 32.0-100.0 Comments: Recent studies consider the lower limit of 32.0 ng/mL to be athreshold for optimal health.Kamari ALLEN. J Nutr. 2004;135(2):317-22. :23 METABOLIC PANEL, COMPREHENSIVE Comments: PATIENT WAS FASTINGPERFORMED BY: [facility] Lynbos0894 [facility] [id number] (18803) Alkaline Phosphatase, S 80 [iU]/L (Normal) Range: [...] Glucose, Serum 92 mg/dL (Normal) Range: 65-99 66-Kxx-98704:23 LIPID PANEL (23391) Comments: PATIENT WAS FASTINGPERFORMED BY: [facility] Lopqbi1948 [facility] [id number] HDL Cholesterol 39 mg/dL (Abnormal) Comments: According to ATP-III Guidelines, HDL-C >59 mg/dL is considered anegative risk factor for CHD. LDL Cholesterol Calc 130 mg/dL (Abnormal) Range: 0-99 LDL/HDL Ratio 3.3 {ratio_units} (Abnormal) Range: 0.0-3.2 VLDL Cholesterol Celso 26 mg/dL (Normal) Range: 5-40 Triglycerides 129 mg/dL (Normal) Range: 0-149 Cholesterol, Total 195 mg/dL (Normal) Range: 100-199 36-Sda-89834:34 METABOLIC PANEL, COMPREHENSIVE Comments: PATIENT WAS FASTINGPERFORMED BY: [facility]CoH[facility]ettstown [facility] CenterMdfemu3868 [facility] [id number] ([id number]) Alkaline Phosphatase, S 83 [iU]/L (Normal) Range: [...] DIFF Comments: PATIENT WAS FASTINGPERFORMED BY: JOJO [facility] Ozyfnb0625 [facility] [id number] Information: [id number] ([id number]) Baso (Absolute) 0.0 {x10E3/uL} (Normal) Range: 0.0-0.2 [...] FUNCTION PANEL Comments: PATIENT WAS FASTINGPERFORMED BY: [facility]6370 [facility] [id number] (27356) Bilirubin, Direct 0.11 mg/dL (Normal) Range: 0.00-0.40 82-Zrw-77754:34 LIPID PANEL (12186) Comments: PATIENT WAS FASTINGPERFORMED BY: [facility]6370 [facility] [id number] HDL Cholesterol 39 mg/dL (Abnormal) Comments: According to ATP-III Guidelines, HDL-C >59 mg/dL is considered anegative risk factor for CHD. LDL Cholesterol Calc 139 mg/dL (Abnormal) Range: 0-99 LDL/HDL Ratio 3.6 {ratio_units} (Abnormal) Range: 0.0-3.2 Triglycerides 101 mg/dL (Normal) Range: 0-149 VLDL Cholesterol Celso 20 mg/dL (Normal) Range: 5-40 Cholesterol, Total 198 mg/dL (Normal) Range: 100-199 6-Ean-130559:13 CBC With Differential/Platelet Comments: PATIENT WAS FASTINGPERFORMED BY: [facility]CoH[facility]stown [facility] CenterPbyruw5050 [facility] [id number] Baso (Absolute) 0.0 {x10E3/uL} (Normal) Range: 0.0-0.2 [...] 11.7-15.0 WBC 3.3 {x10E3/uL} (Abnormal) Range: 4.0-10.5 9-Frs-853361:13 Comp. Metabolic Panel (14) Comments: PATIENT WAS FASTINGPERFORMED BY: [facility] Jatssz8127 [facility] [id number] A/G Ratio 2.0 (Normal) Range: 1.1-2.5 Albumin, [...] With LDL/HDL Comments: PATIENT WAS FASTINGPERFORMED BY: [employer]6370 [facility] [id number] Ratio Cholesterol, Total 210 mg/dL (Abnormal) Range: [...] ng/mL (Normal) Comments: PATIENT WAS FASTINGPERFORMED BY: [employer]out Jfosmh3333 [facility] [id number] :13 Range: 32.0-100.0 Comments: Recent studies consider the lower limit of 32.0 ng/mL to be athreshold for optimal health.Kamari ALLEN. J Nutr. 2004;135(2):317-22. :42 [facility] Radiology Report See Note (Normal) Comments: Exam Number: [id number] MAMMOGRAM, BILATERAL SCREENING DIGITAL AND CAD HISTORYRoutine [...] werealso examined with computer-aided detection softw are ([employer].). Reported By: LEANN CHAUDHARI M.D. 33-Jju-647226:25 SPLEEN (HP) Radiology Report See Note (Normal) Comments: Exam Number: [id number] CLINICAL:Elevated liver enzymes and polycythemia. LIMITED ABDOMINAL [...] quadrant ultrasound. Reported By: ELSIE MCNEAL M.D. 54-Zwn-561033:24 LIVER (HP) Radiology Report See Note (Normal) Comments: Exam Number: [id number] CLINICAL:Elevated liver enzymes and polycythemia. LIMITED ABDOMINAL [...] of splenomegaly. Reported By: ELSIE MCNEAL M.D. 04-Exf-45463:56 CBC With Differential/Platelet Comments: PERFORMED BY: [employer] UKR3420 [facility] [place] [id number] Baso (Absolute) 0.0 {x10E3/uL} (Normal) Range: 0.0-0.2 [...] 11.7-15.0 WBC 3.0 {x10E3/uL} (Abnormal) Range: 4.0-10.5 38-Rag-75385:56 Comp. Metabolic Panel (14) Comments: PERFORMED BY: [employer] ATN8900 [facility] [place] [id number] A/G Ratio 2.0 (Normal) Range: 1.1-2.5 Albumin, [...] :56 Erythropoietin (EPO), Serum Comments: PERFORMED BY: [employer] [id number] [employer] [facility] [place] [id number] Erythropoietin 13.2 m[iU]/mL (Normal) Range: 4.2-27.8 :56 Hepatic Function Panel (7) Comments: PERFORMED BY: [employer] [id number] [employer] [facility] [place] [id number] Bilirubin, Direct 0.15 mg/dL (Normal) Range: 0.00-0.40 :56 JAK2 V617F Mutation Detection Comments: PERFORMED BY: [employer] [id number] [facility] [place] [id number] JAK2 V617F mutation JAK2N (Normal) Comments: Result: NEGATIVE for the JAK2 V617F mutation. .Interpretation: The G to T nucleotide change encoding the I615Eoivjurok wa s not detect detection ed. This [...] all patientswith these disorders. .Tammie Hess, PhD, [facility] Director, Molecular Genetics [facility] [place], [place] .JAK2 is a cytoplasmic tyrosine kinase with a jackson role in signaltra nsduction from multiple hematopoietic growth factor receptors. Apoint mutation within exon 14 of the JAK2 gene (G2611I) encoding avaline to phenylalanine substitution at position 617 of the HIE0owuobhd (V617F) has been identified in most patients [...] for Disease Classification and Diagnosis. [facility] Ggfh0394;80(7):947-958. . LDH 221 [iU]/L Comments: PERFORMED BY: MUÑOZ [facility] MPL6462 [facility] [id number] :56 (Normal) Range: 100-250 :56 Lipid Panel With LDL/HDL Comments: PERFORMED BY: MUÑOZ [facility] NRQ2729 [facility] [id number] Ratio Cholesterol, Total 203 mg/dL (Abnormal) Range: [...] 22.3 ng/mL Comments: PERFORMED BY: MUÑOZ [facility] FQQ9398 [facility] [id number] :56 (Abnormal) Range: 32.0-100.0 Comments: Recent studies consider the lower limit of 32.0 ng/mL to be athreshold for optimal health.Kamari ALLEN. J Nutr. 2004;135(2):317-22. 4-Bjw-980274:06 CBCD,SMEAR DIFF CELLS COUNTED 100 (Normal) EOS [...] 47-70 WBC 3.7 K/mm3 (Abnormal) Range: 4.4-11.0 2-Wlf-054191:06 LDH 205 U/L (Abnormal) Range: 100-190 2-Eej-063905:06 LIVER ALB 4.2 g/dL (Normal) Range: 3.4-5.0 [...] Range: 95-99 :48 CBC WITH MANUAL DIFF (00090) Comments: PATIENT WAS FASTINGClinical Information: ADD DRAW FEE [id number] PERFORMED BY: [facility]CoHackettstown Medical CenterWkxjlg6643 [facility] [id number] Baso (Absolute) 0.0 {x10E3/uL} (Normal) Range: 0.0-0.2 [...] FUNCTION PANEL Comments: PATIENT WAS FASTINGPERFORMED BY: [facility] Pharm[facility]chColumb[facility] [id number] (11836) Albumin, Serum 4.7 g/dL (Normal) Range: 3.6-4.8 Alkaline Phosphatase, S 85 [iU]/L (Normal) Range: 25-165 ALT (SGPT) 45 [iU]/L (Abnormal) Range: 0-40 AST (SGOT) 32 [iU]/L (Normal) Range: 0-40 Bilirubin, Direct 0.13 mg/dL (Normal) Range: 0.00-0.40 Bilirubin, Total 0.5 mg/dL (Normal) Range: 0.1-1.2 Protein, Total, Serum 7.1 g/dL (Normal) Range: 6.0-8.5 :48 LIPID PANEL (13026) Comments: PATIENT WAS FASTINGPERFORMED BY: [facility]6370 [facility] [id number] Cholesterol, Total 194 mg/dL (Normal) Range: 100-199 [...] Random Urine Comments: PATIENT WAS FASTINGPERFORMED BY: [employer]6370 [facility] [id number] Albumin, U 27.1 % (Normal) Ogibc-9-Ahkjpnkg, U 3.7 % (Normal) Momhx-4-Hqqnmwqy, U 25.2 % (Normal) Beta Globulin, U 28.3 % (Normal) Gamma Globulin, U 15.7 % (Normal) M-Darius, % Not Observed % (Normal) Please note: SPRCS (Normal) Comments: Protein electrophoresis scan will follow via mail or power lineworker. Protein,Total,Urine 7.8 mg/dL (Normal) Range: 0.0-15.0 :21 Protein Electro.,S Comments: PATIENT WAS FASTINGPERFORMED BY: [employer] Usyvtr4353 [facility] [id number] A/G Ratio 1.3 (Normal) Range: 0.7-2.0 Albumin 4.0 g/dL (Normal) Range: 3.2-5.6 Mjipg-7-Azxcmnas 0.2 g/dL (Normal) Range: 0.1-0.4 Keefp-5-Ajmaagte 0.8 g/dL (Normal) Range: 0.4-1.2 Beta Globulin 1.1 g/dL (Normal) Range: 0.6-1.3 Gamma Globulin 1.0 g/dL (Normal) Range: 0.5-1.6 Globulin, Total 3.1 g/dL (Normal) Range: 2.0-4.5 M-Darius Not Observed g/dL (Normal) Please note: SPRCS (Normal) Comments: Protein electrophoresis scan will follow via mail or power lineworker. :21 VITAMIN B-12 (CYANOCOBALAMIN) Comments: PATIENT WAS FASTINGPERFORMED BY: JOJO [employer]6370 [facility] [id number] ([id number]) Vitamin B12 416 pg/mL (Normal) Range: 211-911 :21 CBC WITH MANUAL DIFF (66764) Comments: PATIENT WAS FASTINGPERFORMED BY: JOJO [employer]6370 [facility] [id number] Baso (Absolute) 0.0 {x10E3/uL} (Normal) Range: 0.0-0.2 [...] 11.7-15.0 WBC 3.2 {x10E3/uL} (Abnormal) Range: 4.0-10.5 :21 METABOLIC PANEL, COMPREHENSIVE Comments: PATIENT WAS FASTINGPERFORMED BY: [employer]6370 [facility] [id number] (67656) A/G Ratio 1.8 (Normal) Range: 1.1-2.5 Albumin, [...] Serum 88 mg/dL (Normal) Range: 65-99 If -Danish >60 mL/min/1.73 Range: 60-128 (Normal) Comments: Note: [...] Sodium, Serum 143 mmol/L (Normal) Range: 135-145 27-Vbb-67330:21 HEPATIC FUNCTION PANEL Comments: PATIENT WAS FASTINGPERFORMED BY: [facility]outChinle Comprehensive Health Care FacilityEczneh1457 [facility] [id number] (38799) Bilirubin, Direct 0.14 mg/dL (Normal) Range: 0.00-0.40 :21 LIPID PANEL (44311) Comments: PATIENT WAS FASTINGPERFORMED BY: [facility] Tnghfe7460 [facility]ine [place] [id number] Cholesterol, Total 196 mg/dL (Normal) Range: 100-199 [...] Report See Note (Normal) Comments: Exam Number: [id number] MAMMOGRAM, BILATERAL SCREENING DIGITAL AND CAD HISTORYRoutine screening. Full field digital images were obtained in mediolateral oblique andcraniocaudal projections. CAD images w ere reviewed. The current study is compared to the examinations of April,,and October,, from [facility] [place] [facility] in [place], [place]. There is moderately dense fibroglandular parenchyma [...] mammograms werealso examined with computer-aided detection software ([employer] Reported By: LEANN CHAUDHARI M.D. :40 DEXA BONE DENSITY STUDY (HP) Radiology Report See Note (Normal) Comments: Exam Number: [id number] BONE DENSITOMETRY HISTORYPostmenopausal. TECHNIQUE Bone densitometry of the lumbar spine and left hip was performed. Thebest criteria for evaluation of osteoporosis is the T- value, whichrepresents the comparison of the patient's bone mass to an expectedpeak bone mass. For most patients, the mean T-value of L1 through L4is used to evaluate the lumbar spine. Based on the [facility] WorldHealth Organization classifications, the hip is evaluated [...] left hip. Reported By: LEANN CHAUDHARI M.D. 50-Ico-951527:24 CHEST, PA AND LATERAL Radiology Report See Note (Normal) Comments: Exam Number: [id number] CERVICAL SPINE 5 VIEWS - AP, LATERAL, [...] Report See Note (Normal) Comments: Exam Number: [id number] LUMBAR SPINE 5 VIEWS - AP, LATERAL, [...] Report See Note (Normal) Comments: Exam Number: [id number] CERVICAL SPINE 5 VIEWS - AP, LATERAL, [...] Report See Note (Normal) Comments: Exam Number: [id number] MYOCARDIAL PERFUSION SCAN 12 millicuries of Tc99m sestamibi was injected at rest. The patientthen exercised according to the Ayo protocol for a total duration of7 m inutes attai lorena 105% of the maximum predicted heart rate at a workload of 8.5 METs. At peak exercise, 34.7 millicuries of Rc01zdsildjenb was injected. Stress images were then obtained. [...] ejection fraction. Reported By: BARI MOSLEY M.D. 08-Qri-981800:33 TSH (30021) Comments: PATIENT WAS FASTINGPERFORMED BY: [facility]CoHackettstown Medical CenterImkwov1332 [facility] [id number] TSH 1.738 {uIU/mL} (Normal) Range: 0.350-5.500 Comments: Adult TSH concentrations below 5.5 uIU/mL do not rule out the presence of subclinical hypothyroidism. :33 CBC WITH MANUAL DIFF (67675) Comments: PATIENT WAS FASTINGClinical Information: ADD DRAW FEE [id number] ADD J 08162 PERFORMED BY: LabCoHackettstown Medical CenterFmlfyz4774 [facility] [id number] Baso (Absolute) 0.0 {x10E3/uL} (Normal) Range: 0.0-0.2 [...] COMPREHENSIVE Comments: PATIENT WAS FASTINGPERFORMED BY: JOJO [employer]6370 [facility] [id number] (05276) A/G Ratio 2.0 (Normal) Range: 1.1-2.5 Albumin, [...] Serum 81 mg/dL (Normal) Range: 65-99 If -Danish >60 mL/min (Normal) Range: 60-128 Comments: Note: [...] Sodium, Serum 140 mmol/L (Normal) Range: 135-145 21-Mrz-577093:33 LIPID PANEL (18641) Comments: PATIENT WAS FASTINGPERFORMED BY: [employer]70 [facility] [id number] Cholesterol, Total 344 mg/dL (Abnormal) Range: 100-199 [...] Report See Note (Normal) Comments: Exam Number: [id number] LEFT THUMB, 3 VIEWS STATEMENTPain. COMPARISON STUDYWrist [...] rounded andcorticated. Reported By: RAGHAV SINGLETARY M.D. 51-Ssi-017093:47 WRIST,MIN 3 VIEWS Radiology Report See Note (Normal) Comments: Exam Number: [id number] LEFT WRIST, 3 VIEWS STATEMENTWrist pain. There [...] GLU 2 HR GLU GTT-2 HOUR from 0:K74318O. 30 Range: 70-120 : GLU GTT-1 HOUR 116 mg/dL (Abnormal) Comments: 2HR GTT GLU 1 HR GLU GTT-1 HOUR from 0:B73443I. 32 Range: 120-170 : GLU GTT-30 min. 125 mg/dL (Normal) Comments: 2HR GTT GLU 1/2 HR GLU GTT-30 min. from 329:P29245M. 02 Range: 110-170 : C-REACTIVE PROT 9.22 [...] Comments: 2HR GTT FASTING GLU GTT-FASTING from 0330:W15082F. Range: 70-110 Comments: GLUCOSE TOLERANCE TEST Reference [...] Cyclospora, or Microspo ridia. TESTING PERFORMED AT [facility]. ORIGINAL REPORT ON FILE IN LAB [...] :03 TSH 2.32 {uIU/mL} (Normal) Range: 0.34-4.82 9-Pyl-860389:30 C DIF See Note (Normal) Comments: C. [...] Diarrhea Planned Observations CBC with auto diff (91760)Indication: Elevated hemoglobin A1c On: :07 Request METABOLIC PANEL, COMPREHENSIVE (14238)Indication: Elevated hemoglobin A1c On: :07 Request HGB A1C (64660)Indication: Elevated hemoglobin A1c On: : Request LIPID PANEL (86462)Indication: Hypercholesteremia On: :07 Request XJSCI-QLVHRVWAMZA-DFDES (58166)Indication: Fatty liver On: :07 Request CBC W/AUTO DIFF WBC (38340)Indication: Benign essential hypertension On: 13-Gqd-40867:11 Request METABOLIC PANEL, COMPREHENSIVE (85142)Indication: Benign essential hypertension On: 86-Acq-37514:11 Request PHYXT-YPUIALBWZRG-HNVHT (59943)Indication: Fatty liver On: :11 Request UPEP (61118)Indication: Osteopenia On: 10-Rly-525420:50 Request SPEP (98931)Indication: Osteopenia On: 74-Yte-826775:50 Request TSH (40536)Indication: Diarrhea On: :33 Request CBC WITH MANUAL DIFF (79671)Indication: Diarrhea On: 65-Rdp-169246:33 Request METABOLIC PANEL, COMPREHENSIVE (53362)Indication: Diarrhea On: 13-Xoj-036677:33 Request RU CULTURE-STOOL (66403)Indication: Diarrhea On: 49-Fqy-953328:05 Request OVA & PARASITE DIR SMEAR (17429)Indication: Diarrhea On: :04 Request LEUKOCYTE COUNT, FECAL (45650)Indication: Diarrhea On: 95-Jgo-376868:04 Request C-DIFFICILE, STOOL (90247)Indication: Diarrhea On: 26-Ssu-060139:04 Request UPEP (72436)Indication: Osteopenia On: 43-Qow-998423:19 Request SPEP (27864)Indication: Osteopenia On: 11-Tcf-283079:19 Request TSH (78991)Indication: Vitamin D deficiency, unspecified On: 35-Ytl-306151:32 Request UPEP (82008)Indication: Vitamin D deficiency, unspecified On: :31 Request SPEP (44835)Indication: Vitamin D deficiency, unspecified On: :31 Request URINE CALCIUM KAIA TIMED 24 Hour (19756)Indication: Vitamin D deficiency, unspecified On: :31 Request PARATHORMONE (04530)Indication: Vitamin D deficiency, unspecified On: : Request PHOSPHORUS (46535)Indication: Vitamin D deficiency, unspecified On: :31 Request Vitamin D Hydroxy (05128)Indication: Vitamin D deficiency, unspecified On: :31 Request Vitamin D Hydroxy (01128)Indication: Vitamin D deficiency, unspecified On: 38-Xnc-743157:50 Request CBC WITH MANUAL DIFF (00319)Indication: Hypercholesteremia On: 96-Lxf-337058:50 Request METABOLIC PANEL, COMPREHENSIVE (05817)Indication: Hypercholesteremia On: 11-Dwp-645228:49 Request CBC WITH MANUAL DIFF (29269)Indication: Polycythemia, secondary On: 12-Yjt-208280:08 Request METABOLIC PANEL, COMPREHENSIVE (19471)Indication: Migraine On: :08 Request Vitamin D Hydroxy (64649)Indication: Vitamin D deficiency, unspecified On: :08 Request LIPID PANEL (06896)Indication: Hypercholesteremia On: :08 Request OLTEV-QHKBLAJOODD-FWRZY (10053)Indication: Fatty liver On: 02-Jun-599551:08 Request PT (Prothrobim Time) (84848)Indication: Fatty liver On: :07 Request PTT (Activated Partial Thromboplastin Time) (74872)Indication: Fatty liver On: :07 Request LIPID PANEL (98817)Indication: Hypercholesteremia On: 63-Afi-604333:33 Request METABOLIC PANEL, COMPREHENSIVE (87540)Indication: Fatty liver On: 49-Mla-153276:32 Request Vitamin D Hydroxy (74296)Indication: Vitamin D deficiency, unspecified On: 20-Hie-764952:16 Request CBC WITH MANUAL DIFF (19357)Indication: Leukopenia, unspecified type On: 25-Hzb-426390:13 Request METABOLIC PANEL, COMPREHENSIVE (63237)Indication: Osteopenia On: :39 Request Vitamin D Hydroxy (43077)Indication: Osteopenia On: :39 Request CBC WITH MANUAL DIFF (87848)Indication: Leukopenia, unspecified type On: :39 Request HEPATIC FUNCTION PANEL (23938)Indication: Hypercholesteremia On: :39 Request LIPID PANEL (68567)Indication: Hypercholesteremia On: :39 Request LDH (LD) (LACTATE DEHYDROGENASE) (96228) On: 5-Ruo-295064:24 Request CBC WITH MANUAL DIFF (37077)Indication: Leukopenia, unspecified type On: 0-Jhv-400021:24 Request Urine Protein Electrophoresis (UPEP) (74594)Indication: elevated albumin On: 24-Bbj-728973:38 Request Serum Protein Electrophoresis (SPEP) (45516)Indication: elevated albumin On: 82-Per-963660:38 Request CBC WITH MANUAL DIFF (31371) On: 59-Maj-430011:38 Request METABOLIC PANEL, COMPREHENSIVE (32276)Indication: Hypercholesteremia On: :45 Request LIPID PANEL (26609)Indication: Hypercholesteremia On: 63-Wza-892713:45 Request CBC WITH MANUAL DIFF (57361)Indication: Leukopenia, unspecified type On: 45-Zbk-371597:45 Request C-Reactive Protein (51352)Indication: Leukopenia, unspecified type On: :51 Request Sed Rate Erythrocyte (39706)Indication: Leukopenia, unspecified type On: 47-Tjk-780360:51 Request GLUCOSE TOLERANCE TEST (GTT) 2 hour (54358)Indication: Family history of diabetes mellitus On: :47 Request CBC with manual diff (03633)Indication: Leukopenia, unspecified type On: :46 Request LIPID PANEL (94758)Indication: Hypercholesteremia On: :43 Request Comments: in 6 months TSH (53654)Indication: Diarrhea On: :00 Request Metabolic Panel, Comprehensive (18520)Indication: Blood in stool On: :56 Request URINALYSIS W/O MICRO (41076)Indication: Blood in stool On: :49 Request Sed Rate Erythrocyte (17958)Indication: Blood in stool On: :49 Request CBC (Auto) (78614)Indication: Blood in stool On: :48 Request RU CULTURE-STOOL ([id number])Indication: Diarrhea On: :27 Request C.Difficile, StoolIndication: Diarrhea On: :27 Request LEUKOCYTE COUNT, FECAL ([id number])Indication: Diarrhea On: :27 Request OCCULT BLOOD FECES SCREEN ([id number])Indication: Diarrhea On: :27 Request OVA & PARASITE DIR SMEAR ([id number])Indication: Diarrhea On: :27 Request Planned Encounters Medical; [facility] 3 Month FU - On: 14-Jun-2018 9:45 [facility] Fast DO, Aparna A Fast DO, Aparna A Planned Procedures DUPLEX SCAN OF RENAL ARTERY On: 29-Apr-2018 Intent ([id number])By: Fast DO, Aparna A Fast DO, Aparna A ELECTROCARDIOGRAM, COMPLETE (ECG) On: 24-Apr-2018 Intent ([id number])By: Fast DO, Aparna A Fast DO, Comments: ekg showed normal sinus rhythym, normal axis, no acute st/t wave changes Aparna A EEGBy: Fast DO, Aparna A Fast DO, On: 11-Jan-2018 Intent Aparna A PFT - CompleteBy: Fast DO, Aparna A On: 31-Aug-2017 Intent Fast DO, Aparna A Ultrasound - LiverBy: Fast DO, Aparna On: 20-Aug-2017 Intent A Fast DO, Aparna A Spirometry ([id number])By: Stewart GARCIA Aparna On: 20-Aug-2017 Intent A Fast DO, Aparna A Comments: good effort and curve normal ELECTROCARDIOGRAM, COMPLETE (ECG) On: 20-Aug-2017 Intent ([id number])By: Fast DO, Aparna A Fast DO, Comments: ekg showed normal sinus rhythym, normal axis, no acute st/t wave changes Aparna A Radiology - Chest- PA and LatBy: Fast On: 20-Aug-2017 Intent DO, Aparna A Fast DO, Aparna A SCREENING DIGITAL TOMOSYNTHESIS OF On: 20-Aug-2017 Intent BREAST ([id number])By: Fast DO, Aparna A Comments: end of aug Fast DO, Aparna A BILATERAL MAMMOGRAMS ([id number])By: Fast On: 19-Jul-2016 Intent DO, Aparna A Fast DO, Aparna A Comments: aug DEXA SCAN AXIAL SKELETON ([id number])By: On: 19-Jul-2016 Intent Fast DO, Aparna A Fast DO, Aparna A Comments: aug ELECTROCARDIOGRAM, COMPLETE (ECG) On: 18-Apr-2016 Intent ([id number])By: Fast DO, Aparna A Fast DO, Comments: [...] MAMMOGRAM, SCREENING, BOTH BREAST On: 17-Aug-2015 Intent ([id number])By: Fast DO, Aparna A Fast DO, Aparna A XR STERNOCLAVICULAR JOINT, 3 VIEWS On: 13-Apr-2015 Intent ([id number])By: Fast DO, Aparna A Fast DO, Comments: right Aparna A DEXA SCAN AXIAL SKELETON ([id number])By: On: 10-Aug-2014 Intent Fast DO, Aparna A Fast DO, Aparna A MAMMOGRAM, SCREENING, BOTH BREAST On: 10-Aug-2014 Intent ([id number])By: Fast DO, Aparna A Fast DO, Aparna A CT - Abdomen & Pelvis (IV Contrast On: 20-Jan-2014 Intent Needed)By: Fast DO, Aparna A Fast DO, Comments: stat call results Aparna A Eprescribed prescriptions ([id number])By: On: 03-Dec-2013 Intent Fast DO, Aparna A Fast DO, Aparna A Pelvic and Breast, Medicare On: 06-Oct-2013 Intent ([id number])By: Fast DO, Aparna A Fast DO, Aparna A EKG ([id number])By: Caryn Camacho On: 06-Aug-2013 Intent Comments: ekg showed normal sinus rhythym, normal axis, no acute st/t wave changes MAMMOGRAM, SCREENING, BOTH BREASTS On: 30-Apr-2013 Intent ([id number])By: Fast DO, Aparna A Fast DO, Comments: [...] MAMMOGRAM, SCREENING, BOTH BREASTS On: 10-Jun-2012 Intent ([id number])By: Fast DO, Aparna A Fast DO, Comments: jun Aparna A DXA, BONE DENSITY, AXIAL SKELETON On: 10-Jun-2012 Intent ([id number])By: Fast DO, Aparna A Fast DO, Comments: jun Aparna A Eprescribed prescriptions ([id number])By: On: 10-Jun-2012 Intent Caryn Camacho DXA, BONE DENSITY, AXIAL SKELETON On: 10-Oct-2011 Intent ([id number])By: Fast DO, Aparna A Fast DO, Comments: december Aparna A TD Injection , IM ([id number])By: On: 10-Oct-2011 Intent Caryn Camacho Comments: 2005 Eprescribed prescriptions ([id number])By: On: 13-Jun-2011 Intent Fast DO, Aparna A Fast DO, Aparna A MAMMOGRAM, SCREENING, BOTH BREASTS On: 13-Jun-2011 Intent ([id number])By: Fast DO, Aparna A Fast DO, Aparna A FLU VAC, SPLIT, >3 YEARS, INTRAMUSC On: 13-Jun-2011 Intent ([id number])By: Caryn Camacho Comments: pt refuses ELECTROCARDIOGRAM, COMPLETE (ECG) On: 30-Dec-2010 Intent ([id number])By: Clarissa Bolden CNP Comments: reviewed with Dr. Garcia, compared to October 10, 2010 EKG ([id number])By: Caryn Camacho On: 10-Oct-2010 Intent Comments: ekg showed normal sinus rhythym, normal axis, no acute st/t wave changes MAMMOGRAM, SCREENING, BOTH BREASTS On: 14-Feb-2010 Intent ([id number])By: Fast DO, Aparna A Fast DO, Comments: end mar Aparna A DXA, BONE DENSITY, AXIAL SKELETON On: 15-Oct-2009 Intent ([id number])By: Fast DO, Aparna A Fast DO, Comments: january Aparna A EKG ([id number])By: Caryn Camacho On: 07-Jul-2009 Intent Comments: ekg showed normal sinus rhythym, normal axis, no acute st/t wave changes upsloping st segments unchanged Ultrasound - SpleenBy: Fast DO, Aparna On: 22-Mar-2009 Intent A Fast DO, Aparna A Ultrasound - LiverBy: Fast DO, Aparna On: 22-Mar-2009 Intent A Fast DO, Aparna A MAMMOGRAM, SCREENING, BOTH BREASTS On: 22-Mar-2009 Intent ([id number])By: Fast DO, Aparna A Fast DO, Aparna [...] Aparna A Fast DO, Aparna A Spirometry ([id number])By: Fast DO, Aparna On: 23-Jan-2008 Intent A Fast DO, Aparna A Comments: good effort and curve- -with mild obstruction Radiology - Chest- PA and LatBy: Fast On: 23-Jan-2008 Intent DO, Aparna A Fast DO, Aparna A EKG ([id number])By: Fast DO, Aparna A Fast On: 23-Jan-2008 Intent DO, Aparna A Comments: ekg showed normal sinus rhythym, normal axis, no acute st/t wave changes DXA, BONE DENSITY, AXIAL SKELETON On: 23-Jan-2008 Intent ([id number])By: Fast DO, Aparna A Fast DO, Aparna A MAMMOGRAM, SCREENING, BOTH BREASTS On: 23-Jan-2008 Intent ([id number])By: Fast DO, Aparna A Fast DO, Aparna [...] Non-smoker Non-smoker : Patient Instructions Indication: Non-smoker [facility] Wellness Physical : How to access health information online Indication: [facility] Wellness Physical [facility] Wellness Physical : How to access health information online - Detail Indication: [facility] Wellness Physical [facility] Wellness Physical : Patient Instructions Indication: [facility] Wellness Physical Palpitations : How to access [...] visit - The patient feels the same (bellrandi is a little upset today. Had another episode on Sunday, here to follow up.). Patient has been compliant with instructions. Note for Follow End: 25-Apr-2018 20:57 up acute care visit: she is taking magnesium suppleent and thinks the diarrhea happens after so she will try to cut the dose - she had another spell 2 days a go she was working in [employer] and she started to look around and [...] visit: note: (DX: TGA. Went to [facility] due to sudden memory loss. 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 The patient has noticed [...] (723.4) [facility] Payers MedicareMARCELLA WENGERD; a guarantor
--- OUTSIDE RECORDS SUMMARY | 2018-08-07 06:56 | XMS RPT_ITS ---
:1940 Author Organization [facility] Support Name Relationship Address Phone ROQUE STEPHANIE Unavailable [address] + [place] [address] R Unavailable Unavailable Unavailable WENGERD, SUSHIL Unavailable [address] + [place] [address] STEPHANIE NEVAREZ Unavailable [address] + [place] [address] R Unavailable Unavailable Unavailable WENGERD, SUSHIL Unavailable [address] + [place] [address] STEPHANIE NEVAREZ Unavailable [address] + [place] [address] R Unavailable Unavailable Unavailable WENGERD, SUSHIL Unavailable [address] + [place] [address] STEPHANIE NEVAREZ Unavailable [address] + [place] [address] R Unavailable Unavailable Unavailable WENGERD, SUSHIL Unavailable [address] + [place] [address] STEPHANIE NEVAREZ Unavailable [address] + [place] [address] R Unavailable Unavailable Unavailable WENGERD, SUSHIL Unavailable [address] + [place] [address] STEPHANIE NEVAREZ Unavailable [address] + [place] [address] R Unavailable Unavailable Unavailable WENGERD, SUSHIL Unavailable [address] + [place] [address] STEPHANIE NEVAREZ Unavailable [address] + [place] [address] R Unavailable Unavailable Unavailable WENGERD, SUSHIL Unavailable [address] + [place] [address] STEPHANIE NEVAREZ Unavailable [address] + [place] [address] R Unavailable Unavailable Unavailable WENGERD, SUSHIL Unavailable [address] + [place] [address] STEPHANIE NEVAREZ Unavailable [address] + [place] [address] R Unavailable Unavailable Unavailable WENGERD, SUSHIL Unavailable [address] + [facility] [address] STEPHANIE NEVAREZ Unavailable [address] + [place] [address] R Unavailable Unavailable Unavailable WENGERD, SUSHIL Unavailable [address] + [facility] [place] [address] STEPHANIE NEVAREZ Unavailable [address] + [place] [address] R Unavailable Unavailable Unavailable WENGERD, SUSHIL Unavailable [address] + [facility] [address] STEPHANIE NEVAREZ Unavailable [address] + [place] [address] R Unavailable Unavailable Unavailable WENGERD, SUSHIL Unavailable [address] + [facility] [place] [address] STEPHANIE NEVAREZ Unavailable [address] + [place] [address] R Unavailable Unavailable Unavailable WENGERD, SUSHIL Unavailable [address] + [place] [address] STEPHANIE NEVAREZ Unavailable [address] + [place] [address] R Unavailable Unavailable Unavailable WENGERD, SUSHIL Unavailable [address] + [place] [address] STEPHANIE NEVAREZ Unavailable [address] + [place] [address] R Unavailable Unavailable Unavailable WENGERD, SUSHIL Unavailable [address] + [place] [address] STEPHANIE NEVAREZ Unavailable [address] + [facility] [address] R Unavailable Unavailable Unavailable WENGERD, SUSHIL Unavailable [address] + [facility] [place] [address] STEPHANIE NEVAREZ Unavailable [address] + [place] [address] R Unavailable Unavailable Unavailable WENGERD, SUSHIL Unavailable [address] + [place] [address] STEPHANIE NEVAREZ Unavailable [address] + [place] [address] R Unavailable Unavailable Unavailable WENGERD, SUSHIL Unavailable [address] + [place] [address] STEPHANIE NEVAREZ Unavailable [address] + [facility] [place] [address] R Unavailable Unavailable Unavailable WENGERD, SUSHIL Unavailable [address] + [place] [address] STEPHANIE NEVAREZ Unavailable [address] + [facility] [place] [address] R Unavailable Unavailable Unavailable WENGERD, SUSHIL Unavailable [address] + [place] [address] STEPHANIE NEVAREZ Unavailable [address] + [facility] [place] [address] R Unavailable Unavailable Unavailable WENGERD, USSHIL Unavailable [address] + [place] [address] Care Team Providers Name Role Phone Fast DO, Aparna A Attending Unavailable Fast DO, Aparna A Referring Unavailable Fast DO, Aparna A Consulting Unavailable Fast, Aparna Attending Unavailable Fast, Aparna Primary Care Unavailable Fast, Aparna Attending Unavailable Fast, Aparna Referring Unavailable Fast, Aparna Primary Care Unavailable Fast, Aparna Attending Unavailable Fast, Aparna Primary Care Unavailable Fast, Aparna Referring Unavailable Fast, Aparna Attending Unavailable Fast, Aparna Referring Unavailable Fast, Aparna Primary Care Unavailable Robert Brown, D.O. Attending Unavailable Fast, Aparna Referring Unavailable Fast, Aparna Attending Unavailable Fast, Aparna Primary Care Unavailable Paulino, Ben Referring Unavailable Fast, Aparna Primary Care Unavailable Tereletsky, Nikita Admitting Unavailable Tereletsky, Nikita Attending Unavailable Tereletsky, Nikita Admitting Unavailable Tereletsky, Nikita Attending Unavailable Paulino, Ben Referring Unavailable Fast, Aparna Primary Care Unavailable Tereletsky, Nikita Consulting Unavailable Tereletsky, Nikita Attending Unavailable Fast, Aparna Attending Unavailable Fast, Aparna Referring Unavailable Fast, Aparna Primary Care Unavailable Moodispaw, Brendan Attending Unavailable Dimitri, Bari Attending Unavailable Ungur, Remus Referring Unavailable Fast, Aparna Attending Unavailable Fast, Aparna Referring Unavailable Fast, Aparna Primary Care Unavailable Senia Pineda Attending Unavailable Moodispaw, Brendan Attending Unavailable Fast, Aparna Referring Unavailable Moodispaw, Brendan Attending Unavailable Moodispaw, Brendan Referring Unavailable Fast, Aparna Primary Care Unavailable Moodispaw, Brendan Attending Unavailable Moodispaw, Brendan Referring Unavailable Fast, Aparna Primary Care Unavailable Moodispaw, Brendan Attending Unavailable Moodispaw, Brendan Referring Unavailable Fast, Aparna Attending Unavailable Fast, Aparna Referring Unavailable Fast, Aparna Primary Care Unavailable Timur Mckee Attending Unavailable Fast, Aparna Referring Unavailable Chris, Britta HUMAN PERFORMANCE TECHNOLOGIST-C Attending Unavailable Chris, Britta HUMAN PERFORMANCE TECHNOLOGIST-C Referring Unavailable Fast, Aparna Primary Care Unavailable PROBLEMS PROBLEMS DATE TYPE CONDITION / CODE ATTENDING STATUS SOURCE 06/17/2018 Unknown R07.9 - Chest pain, ShayleeisBrendan wilder Active [facility] unspecified / Community R07.9(ICD-10) Hospital Repository 05/24/2018 Unknown I10 - Essential MoodispaBrendan chu Active [facility] (primary) Community hypertension / Hospital I10(ICD-10) Repository 05/16/2018 Unknown I49.3 - Ventricular Moodispavlad, Brendan Active [facility] premature Community depolarization / Hospital I49.3(ICD-10) Repository 05/16/2018 Unknown E78.5 - Moodispavlad, Brendan Active [facility] Hyperlipidemia, Community unspecified / Hospital E78.5(ICD-10) Repository 01/18/2018 Unknown R41.3 - Other Fast, Aparna Active [facility] amnesia / Community R41.3(ICD-10) Hospital Repository 02/13/2018 Unknown 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, 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 [place] [address] OFFICE VISIT Date of Service: 06/26/18 MR#: [id number] Acct: [id number] Name: JACI BEE Rep #: [id number] : 1940 Provider: DIMAS Mckee Age/Sex: 77/F [place] [facility] [place] Signed HPI HPI Details: JACI BEE, is a 77 F who presents to the office today for a cardiovascular outpatient follow-up. She has a history of intermittent spiking high blood pressure and chest pressure. She states her chest pressure described at last office visit comes and goes and has not worsened. This does not limit her activity. She states after her stress test she noticed the pressure sensation once she got home. She states feeling more tired that usual over the last 6-12 months. She states she needs to take more breaks to recover. She denies shortness of breath. She denies lightheadedness, dizziness, edema, palpitations, claudication, orthopnea, PND, fever, chills, blood in urine, blood in stool, or myalgia. She states her blood pressure has ranged from 116-140 systolic. She states the spike in blood pressure, as been as high as 192/84 and appears correlate with bending forward. She states with the blood pressure spike, she loses her memory. She has an appointment with a neurologist in July. 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 Accompanied by: NONE Is patient in pain?: No Allergies codeine Allergy (Verified 06/26/18 11:26) Other nabumetone Adverse Reaction (Unknown, Verified 06/26/18 11:26) Unknown Medications Famotidine [Pepcid] 20 mg PO DAILY 01/17/16 [History Confirmed 06/26/18] [place]-3 Fatty Acids/Fish Oil [[place] 3 Fish Oil Softgel] 1 ea PO 01/17/16 [History Confirmed 06/26/18] Vitamin E 400 unit PO 01/17/16 [History Confirmed 06/26/18] aspirin 325 mg tablet 325 mg PO DAILY 05/15/18 [History Confirmed 06/26/18] atorvastatin 10 mg tablet 10 mg PO DAILY 05/15/18 [History Confirmed 06/26/18] sumatriptan 25 mg tablet 25 mg PO DAILY PRN tab 05/15/18 [History Confirmed 06/26/18] cholecalciferol (vitamin D3) 1,000 unit tablet 1,000 unit PO DAILY tab 05/16/18 [History Confirmed 06/26/18] coenzyme Q10 100 mg capsule 100 mg PO DAILY 05/16/18 [History Confirmed 06/26/18] lactobacillus combination no.9 4 billion cell capsule 4,000 mmu cells PO DAILY 05/16/18 [History Confirmed 06/26/18] mometasone 100 mcg/actuation HFA aerosol inhaler 1 puff INHALATION BID 06/26/18 [History Confirmed 06/26/18] PFSH Medical History Premature ventricular contraction (Acute) Hyperlipemia (Chronic) Diastolic dysfunction (Acute) GERD (gastroesophageal reflux disease) (Chronic) Essential hypertension (Acute) Surgical History History of carpal tunnel surgery (Resolved) History of cataract surgery (Resolved) History of tonsillectomy (Resolved) Family History Father Myocardial infarction Sister CAD (coronary artery disease) History of coronary artery bypass surgery Mother Myocardial infarction Social History Smoking Status: Never smoker alcohol intake: never ROS Const Const: Positive for fatigue; negative for weakness, weight gain, weight loss, frequent falls or excessive sweating Eyes Eyes: Negative for change in vision, blurry vision or transient loss of vision ENT ENT: Negative for dizziness or balance problems Cardio Chest Pain: Yes Character: dull Onset: at rest, exercise Location: left chest Duration: hours Palpitations: No Edema: None Muscle aches with walking: None Additional Details: Patient referred for elevated BP spikes that can last a couple of days. Resp Respiratory: Negative for SOB with activity, SOB at rest, SOB orthopnea\SOB lying down or paroxysmal nocturnal dyspnea GI GI: Negative black,tarry stools, bright, red blood in stools or vomiting blood/hematemesis : Negative for hematuria Musc Musc: Negative for balance problems or muscle aches/ myalgia Skin Skin: Negative non-healing lesions or rash Neuro Neuro: Negative for weakness, frequent falls, blurry vision, dizziness, lightheadedness, near syncope or syncope Tristin Hematologic/Lymphatic: Negative for easy bleeding Endo Endo: Positive for fatigue; negative for excessive sweating Psych Psych: Negative for anxiety or depression Allergy Allergy/Immunology: Negative for rash Cardiology Exam Const Appearance: cooperative, healthy appearing, comfortable and no acute distress Nutritional Appearance: average body habitus and well nourished Orientation: alert, awake and oriented x3 Head Head: normal to inspection Ears: hearing grossly normal bilaterally Nose: external nose normal Face and Sinus: face symmetric Mouth: oral mucosae normal Eyes General: appearance normal, both eyes and all related structures Eyelids: eyelids normal EOM: EOM intact bilaterally Neck Neck: no JVD and normal visual inspection Carotids: normal carotid upstroke Chest Chest inspection: normal inspection of the chest and normal respiratory effort; negative cough Auscultation: Bilateral: Clear to Auscultation Cardio Rate: regular rate Rhythm: regular rhythm Heart sounds: S1 normal and S2 normal; negative rub, gallop or murmur GI GI: normal to inspection Neuro General: alert, awake, oriented x3 and CN's II-XI intact bilaterally Skin Skin: no rashes or lesions noted Extremities Pulses: Normal: Right Posterior Tibial Pulse, Left Posterior Tibial Pulse, Right Radial Pulse, Left Radial Pulse Lower Extremity Edema: None: Bilateral Psych Psychological: normal affect Supplemental Info Transthoracic echocardiogram: 01/01/2018 Interpretation Summary Left ventricular systolic function is normal. The estimated ejection fraction is 60 %. Mild mitral valve prolapse, posterior leaflet Mild diffuse mitral valve thickening. Mild (1+) mitral valve insufficiency. Trivial tricuspid valve insufficiency. Moderate focal aortic valve calcification. Right ventricular systolic pressure estimated to be 30 mmHg. Normal diastology for age. Stress nuclear study: 05/30/2018 Impression: 1. Technically adequate (percent predicted maximal heart rate greater than 85%) exercise tolerance test 2. Peak exercise ECG with no obvious ECG changes 3. There were occasional PVCs during exercise and recovery 4. Nuclear images pending Myocardial perfusion imaging study: Technique: The patient was injected with 11.4 mCi of technetium 99m Cardiolite and subsequently rest SPECT Cardiolite nuclear imaging was obtained in the horizontal long, vertical long, and short axis views. The patient exercised on a Ayo protocol [...] long, vertical long, and short axis views. A gated Cardiolite study at peak stress was obtained. Interpretation: Rest and stress SPECT Cardiolite nuclear imaging status post realignment, normalization, and attenuation correction, demonstrates the appearance of relative uniform tracer uptake and myocardial perfusion appearing within normal limits. There is end systolic thickening and brightening. The gated Cardiolite study demonstrates myocardial thickening and inward wall motion. The reported LVEF is 76 %. Impression: 1. Rest and stress SPECT Cardiolite nuclear imaging demonstrate relative uniform tracer uptake and myocardial perfusion appearing within normal limits. 2. The gated Cardiolite study reports an LVEF of 76 %. She had a renal artery duplex study performed recently on 05/06/2018 Interpretation Summary Dimensions of the intra-abdominal aorta appear normal, without evidence of aneurysmal dilatation. Renal artery velocities are bilaterally normal. Acceleration times are normal bilaterally. Renal- aortic ratios are also bilaterally normal. There is no evidence of hemodynamically significant renal artery stenosis on either side. The right cortical dimension is normal. The left cortical dimension is increased. Kidneys appear normal in size bilaterally. Assessment AND Plan 1. Essential (primary) hypertension I10 Plan Her blood pressure has been well controlled. She denies any sudden increase in blood pressure since last office visit. Renal artery duplex April 2018 did not reveal any hemodynamically significant renal stenosis. Her 24-hour urine collection was negative she will be following up with neurology in July 2018 to discern if there is any neurologic component. She will be referred to rn delivery for further evaluation regarding blood pressure spikes and an endocrinology source. Orders Referrals: 2. Chest pain, unspecified type R07.9 Plan Her stress test May 2018 was negative for stress-induced myocardial ischemia. Chest pressure continues, but has not worsened. She did undergo a CT scan of her chest in May 2018 that revealed a 5 mm and 6 mm nodule in her left upper lobe. It is unclear if this is causing her chest discomfort. We will defer heart catheterization unless symptoms worsen. We will reassess this at next office visit in approximately 3 months. She was instructed to contact our office if symptoms worsen. Plan Detail Additional Comments Thank you for allowing us to participate in the patients plan of care, if you have any questions please do not hesitate to call. This note was generated using a voice recognition system and there may be incorrect words, spelling or punctuation that were not noted when reviewing the office note prior to saving. Follow Up 12 Months (PFM) 4 Months ([facility]) Coding Level of Care Code Off vis,est,level 3 Diagnoses Essential (primary) hypertension I10 Chest pain, unspecified type R07.9 Chest pain type: unspecified Coding Level of Care Code Off vis,est,level 3 Diagnoses Essential (primary) hypertension I10 Chest pain, unspecified type R07.9 Chest pain type: unspecified 06/26/18 1550 <Electronically signed by Timur BAILEY> Date Timur BAILEY Cosigner Signature: Date (if applicable) CC: Aparna William DO CHEST WITHOUT Observed: 06/25/2018 Status: F Source: [place] CONTRAST 1:10 PM [facility] [place] [facility] Services [address] [place] [address] Chest without Contrast MR#: [id number] Acct: [id number] Name: JACI BEE [place] Rep #: [id number] : 1940 F 77 From: Prince Calloway MD PCP: Aparna William DO Status: REG CLI Study: Chest without Contrast Date of Exam: 06/25/18 Exam# [id number] Ordering Dr: Aparna William DO STUDY: CT CHEST WITHOUT CONTRAST REASON FOR EXAM: Female, 77 years old. Pulmonary fibrosis RADIATION DOSAGE (If Supplied By Facility): CTDIvol = ( 8.24 ) mGy, DLP = ( 276.69 ) mGycm TECHNIQUE: Transaxial imaging was performed without the administration of intravenous contrast material. Individualized dose optimization techniques were used for this CT. COMPARISON: None. FINDINGS: 6 mm left upper lobe nodule on image 66 of series 3. 5 mm left upper lobe nodule on image 68. Mild peripheral pulmonary fibrosis in the upper lobes. Mild terminal alveolar nodularity in the right upper lobe could be related to bronchiolitis. There is no demonstrated pleural abnormality. Normal heart and pericardium. Normal mediastinum. Normal hilar regions. Normal unenhanced pulmonary arteries. Normal aorta arch and descending thoracic aorta. Tracheobronchial calcifications. Normal osseous structures. Indeterminate 12 mm low-density lesion in the central liver. Incompletely imaged left renal cyst. Multiple small nonobstructing left renal calculi. CT/Chest without Contrast IMPRESSION: Mild peripheral pulmonary fibrosis in the upper lobes. Mild terminal alveolar nodularity in the right upper lobe could be related to bronchiolitis. 6 and 5 mm left upper lobe nodules. Based on the 2017 Fleischner Society Guidelines for Management of Incidentally Detected Pulmonary Nodules, for a single solid lung nodule 6-8mm in size: * If patient is considered low risk for developing lung cancer, follow-up CT at 6-12 months is recommended, then consider CT at 18-24 months. * If patient is considered high risk, follow-up CT at 6-12 months is recommended, then again at 18-24 months. Electronically Signed: Prince Calloway MD at 23:46 EST Tel , Service support , CC: Aparna William DO Cardiovascular Rn: Signed STRESS REPORT Observed: 05/30/2018 Status: F Source: [place] 10:11 AM [facility] [place] [facility] [address] [place] [address] MR#: [id number] Acct: [id number] Name: JACI BEE Rep #: [id number] : 1940 77 From: Brendan Koch MD Primary Care: Aparna William DO Status: REG CLI Ordering Dr: Sex: F C Stress Test Report Date: 05/30/2018 Procedure: Exercise tolerance test/imaging study Indications: Chest pain Consent: Per the patient Procedure: [...] normal sinus rhythm. The peak exercise ECG demonstrated no obvious ECG changes. There were occasional PVCs during exercise and recovery. The functional capacity was considered average. There was vague chest discomfort at peak exercise with spontaneous resolution in recovery. The examination was discontinued secondary to dyspnea. Impression: 1. Technically adequate (percent predicted maximal heart rate greater than 85%) exercise tolerance test 2. Peak exercise ECG with no obvious ECG changes 3. There were occasional PVCs during exercise and recovery 4. Nuclear images pending Myocardial perfusion imaging study: Technique: The patient was injected with 11.4 mCi of technetium 99m Cardiolite and subsequently rest SPECT Cardiolite nuclear imaging was obtained in the horizontal long, vertical long, and short axis views. The patient exercised on a Ayo protocol [...] long, vertical long, and short axis views. A [...] stress SPECT Cardiolite nuclear imaging demonstrate relative uniform tracer uptake and myocardial perfusion appearing within normal limits. 2. The gated Cardiolite study reports an LVEF of 76 %. This note was generated with Attensa software. It may contain incorrect words, spelling, and punctuation that were not noted in checking the note before signing. 05/30/18 1011 <Electronically signed by Brendan Koch MD> Date Brendan Koch MD CC: Aparna William DO; Brendan Koch MD Date Dictated: 05/30/18 1005 Date Transcribed: 05/30/18 1005 Cardiovascular Rn: PM Signed CATACHOL+VMA, 24 HR UR Collected: 05/24/2018 Status: F Source: [place] 9:18 AM [facility] [place] TYPE CODE TESTS RESULT OUT OF RANGE REFERENCE UNITS LAB L3600.0300 Undefined ug/L Normal 2 EPINEPHRINE, UR LAB L3600.0400 0-20 ug/24 hr Normal 4 EPINEPHRINE, U24 LAB L3600.0500 Undefined ug/L Normal 14 NOREPINEPH,U R LAB L3600.0550 0-135 ug/24 hr Normal 28 NOREPINEPH,U 24 LAB L3600.0600 Undefined ug/L Normal 40 DOPAMINE,UR LAB L3600.0700 0-510 ug/24 hr Normal 80 DOPAMINE,U24 Result Comment: Performed at: [address] [id number] E M Assembler: Prince García MD, Phone: [phone] TESTING PERFORMED AT [facility]. ORIGINAL REPORT ON FILE IN LAB CONTAINS ADDITIONAL TEST SITE INFORMATION. LAB L3600.0900 Undefined mg/L Normal VMA,UR 1.2 LAB L3600.1000 0.0-7.5 mg/24 hr Normal VMA,24UR 2.4 Result Comment: This test was developed and its performance characteristics determined by [facility]. It has not been cleared or approved by the Food and Drug Administration. Performed By: #### L3600.0055 #### [facility] (refer to report for specific site) refer to report for address and phone number CARDIOLOGY VISIT Observed: 05/16/2018 Status: F Source: [place] REPORT 8:28 PM [facility] [place] [facility] [address] [place] [address] OFFICE VISIT Date of Service: 05/16/18 MR#: [id number] Acct: [id number] Name: JACI BEE Rep #: [id number] : 1940 Provider: Brendan Koch MD Age/Sex: 77/F [place] [facility] [place] Status: Signed HPI HPI Details: JACI BEE, is a 77 F who presents to the office today for outpatient cardiovascular consultation based upon concerns of intermittent spiking high blood pressures and chest discomfort. She notes that she has had a long- standing history of being normotensive and/or intermittently having low blood pressure. However she has been having episodes where she states her blood pressure will spike. She states her intermittent spiking blood pressures have been unexplained. She has undergone laboratory evaluation which have been unrevealing. She did have laboratory studies documenting her thyroid function tests performed earlier this year per medical records obtained from her PCP office with a TSH level at 3.7 being reported within normal range. She states when her blood pressure spikes it may stay elevated for a period of time and then gradually come down. When these events occur she may feel somewhat warm . She is unsure as to whether she is truly flushed or becomes diaphoretic. She does not recall having an associated accelerated heart rate. Her blood pressure was elevated upon arrival in the office today. It was rechecked with her blood pressure being approximately 140/84 mmHg-decreased compared to her blood pressure on arrival. She also notes she has intermittent centralized chest pressure. This occurs at different times. It does not necessarily radiate nor is it associated with worsening symptoms such as dyspnea, nausea, emesis, or diaphoresis. It appears that [...] no near syncope or syncope. Intake Vital Signs05/16/18 Height 5 ft 3 in 05/16/18 Weight: 122 lb 05/16/18 Body Mass Index (BMI) 21.6 05/16/18 Blood Pressure 158/90 H Intake Visit Reasons: New Patient\Elevated BP-Dr. William referral Allergies codeine Allergy (Verified 05/16/18 16:00) Other nabumetone Adverse Reaction (Unknown, Verified 05/16/18 16:00) Unknown Medications Famotidine [Pepcid] 20 mg PO DAILY 01/17/16 [History Confirmed 05/16/18] [place]-3 Fatty Acids/Fish Oil [[place] 3 Fish Oil Softgel] 1 ea PO 01/17/16 [History Confirmed 05/16/18] Vitamin E 400 unit PO 01/17/16 [History Confirmed 05/16/18] aspirin 325 mg tablet 325 mg PO DAILY 05/15/18 [History Confirmed 05/16/18] atorvastatin 10 mg tablet 10 mg PO DAILY 05/15/18 [History Confirmed 05/16/18] budesonide-formoterol HFA 80 mcg-4.5 mcg/actuation aerosol inhaler 2 puff INHALATION DAILY g 05/15/18 [History Confirmed 05/16/18] lorazepam 0.5 mg tablet 0.5 mg PO DAILY PRN tab 05/15/18 [History Confirmed 05/16/18] sumatriptan 25 mg tablet 25 mg PO DAILY PRN tab 05/15/18 [History Confirmed 05/16/18] cholecalciferol (vitamin D3) 1,000 unit tablet 1,000 unit PO DAILY tab 05/16/18 [History Confirmed 05/16/18] coenzyme Q10 100 mg capsule 100 mg PO DAILY 05/16/18 [History Confirmed 05/16/18] lactobacillus combination no.9 4 billion cell capsule 4,000 mmu cells PO DAILY 05/16/18 [History Confirmed 05/16/18] PFSH Medical History Premature ventricular contraction (Acute) Hyperlipemia (Chronic) Diastolic dysfunction (Acute) GERD (gastroesophageal reflux disease) (Chronic) Essential hypertension (Acute) Surgical History History of carpal tunnel surgery (Resolved) History [...] or excessive sweating Eyes Eyes: Negative for change in vision, blurry vision or transient loss of vision ENT ENT: Negative for dizziness or balance problems Cardio Chest Pain: Yes Character: dull Onset: at rest, exercise Location: left chest Duration: hours Palpitations: Yes (occasional) feels like its: pounding Edema: None Muscle aches with walking: None Additional Details: Patient referred for elevated BP spikes that can last a couple of days. Resp Respiratory: Negative for SOB with activity or SOB at rest GI GI: Negative vomiting or vomiting blood/hematemesis : Negative for hematuria Musc Musc: Positive for muscle aches/ myalgia (muscle cramps at night to bilat LE); negative for balance problems, muscle weakness or joint pain Skin Skin: Negative non-healing lesions or rash Neuro Neuro: Negative for weakness, blurry vision, dizziness, lightheadedness, frequent falls or orthostatic symptoms Tristin Hematologic/Lymphatic: Negative for easy bleeding Endo Endo: Positive for fatigue (increased); negative for excessive sweating Psych Psych: Negative for anxiety or depression Allergy Allergy/Immunology: Negative for hives, Negative for rash Supplemental Info Transthoracic echocardiogram: 01/01/2018 Interpretation Summary Left ventricular systolic function is normal. The estimated ejection fraction is 60 %. Mild mitral valve prolapse, posterior leaflet Mild diffuse mitral valve thickening. Mild (1+) mitral valve insufficiency. Trivial tricuspid valve insufficiency. Moderate focal aortic valve calcification. [...] only noted. 4. Excellent functional work capacity. She had a renal artery duplex study performed recently on 05/06/2018 Interpretation Summary Dimensions of the intra-abdominal aorta appear normal, without evidence of aneurysmal dilatation. Renal artery velocities are bilaterally normal. [...] secondary evaluation has been unremarkable thus far, she could have still a secondary etiology such as a pheochromocytoma causing her intermittent blood pressure spikes even without all the classic associated symptoms and/or findings. Thus at the present time she will be asked to have a [...] meantime she is not going to be immediately placed on additional medical therapy as she [...] tolerance test to evaluate for any obvious evidence of myocardial ischemia that has developed compared to her study 2 years ago that warrants further evaluation or care. She had a chest x-ray performed in December of this year. It appeared to be unremarkable. If symptoms are otherwise unexplained and based on concerns of her hypertension she may need further evaluation of her great vessels with a chest CT scan for any obvious evidence of thoracic aortic involvement. Orders Orders: 3. Hyperlipidemia E78.5 Plan She does have a history of hyperlipidemia. She is on lipid- lowering therapy. She is being followed by her primary care physician for this Orders Orders: Plan Detail Other Orders Orders: Additional Comments The above was discussed with the patient. She was agreeable to this approach. Thank you for allowing me to participate in the care of your patient. Please don't hesitate to call if any issues arise. This note was generated using a voice recognition system and there may be incorrect words, spelling or punctuation that were not noted when reviewing the office note prior to saving. Follow Up 6 Weeks (PFM) Coding Level of Care Code Off vis,new,level 4 Diagnoses Essential hypertension I10 Chest pain R07.9 Hyperlipidemia E78.5 Coding Level of Care Code Off vis,new,level 4 Diagnoses Essential hypertension I10 Chest pain R07.9 Hyperlipidemia E78.5 05/16/182027 <Electronically signed by Brendan Koch MD> Date Brendan Koch MD Cosigner Signature: Date (if applicable) CC: Aparna William DO 12 LEAD EKG PERFORMED Observed: 05/16/2018 Status: F [place] [facility] [place] [facility] [address] [place] [address] 12 Lead [place] [facility] [place]/16/18 1550 MR#: [id number] Acct: [id number] Name: JACI BEE Rep #: [id number] : 1940 77 From: Brendan Koch MD Attending Dr: Brendan Koch MD Status: DEP AMB Ordering Dr: Brendan Koch MD Date: 05/16/18 [place] [facility] [place] F C Admitted: BMS/12 Lead [place] [facility] [place] Report Interpretation Sinus Rhythm Poor R wave progressionElectronically signed on 05/16/2018 at 22:10 by Brendan Koch Software Version [id number] 05/16/18 2214 Date Brendan Koch MD CC: Aparna William DO Date Dictated: 05/16/181549 Date Transcribed: 05/16/181549 Cardiovascular Rn: PM Signed RENAL ARTERY DUPLEX Observed: 05/06/2018 Status: F Source: [place] 9:33 PM [facility] Cardiovascular Services [address] [place] [address] Renal Artery Duplex Ultrasound 05/06/18 0847 MR#: [id number] Acct: [id number] Name: JACI BEE Rep #: [id number] : 1940 77 From: Thomas Cool MD Attending Dr: Aparna William DO Status: REG CLI Ordering Dr: Aparna William DO Date: 05/06/18 Location: [facility] Sex: F C Admitted: Reason For Study: HYPERTENSION Right Renal Artery Left Renal Artery Right renal artery ostium Left renal artery ostium 71.2/19.1 108.0/26.4 RSV/EDV. PSV/EDV. Right renal artery proximal Left renal artery proximal PSV/EDV 121.0/32.6 PSV/EDV. 70.6/20.8 . Right renal artery mid 104.0/21.6 Left renal artery mid 66.5/16.2 PSV/EDV. PSV/EDV . Right renal artery distal Left renal artery distal 62.1/17.8 115.0/32.8 PSV/EDV. PSV/EDV. Right RAR 1.3. Left RAR .69. Right Renal Parenchyma Left Renal Parenchyma Upper Pole Medula 38.5/10.4 Left upper pole medulla 20.2/6.1 PSV/EDV. PSV/EDV . Right upper pole medulla EDR .27 . Left upper pole medulla EDR .30 . Right upper pole medulla R.I. .73 . Left upper pole medulla R.I. .70 . Upper Richardson Cortx 28.4/9.2 PSV/EDV. UP Cortex 15.9/4.8 PSV/EDV. Right upper pole cortex EDR .32 . Left upper pole cortex EDR .30 . Right upper pole cortex R.I. .68 . Left upper pole cortex R.I. .70 . Right lower Pole medulla 24.4/7.3 Left lower Pole medulla 29.3/9.1 PSV/EDV . PSV/EDV . Right lower pole medulla EDR .30 . Left lower pole medulla EDR .31 . Right lower pole medulla R.I. .70 . Left lower pole medulla R.I. .69 . Lower Pole Cortex 15.7/4.7 PSV/EDV. Lower Pole Cortx 29.6/9.1 PSV/EDV. Right lower pole cortex EDR .30 . Left lower pole cortex EDR .31 . Right lower pole cortex R.I. .70 . Left lower pole cortex R.I. .69 . Right Renal Hilar Left Renal Hilar Right Hilar avg 54.3/11.9 PSV/EDV. LT Hilar avg 42.5/10.7 PSV/EDV . [...] X 1.3 cm . Proximal abdominal aorta peak systolic velocity is 90.3 cm/sec . Distal abdominal aorta peak systolic velocity is 89.4 cm/sec . Interpretation Summary Dimensions of the intra-abdominal aorta appear normal, without evidence of aneurysmal dilatation. Renal artery velocities are bilaterally normal. [...] MD CC: Aparna William DO Date Dictated: 05/06/1847 Date Transcribed: 05/06/182131 Cardiovascular Rn: Signed ELECTROENCEPHALOGRAM Observed: 02/06/2018 Status: F Source: [place] 2:55 PM [facility] Pulmonary Services/Neurology [address] [place] [address] MR#: [id number] Acct: [id number] Name: JACI BEE Rep #: [id number] : 1940 77 From: Annika Salmon MD Referring Dr: Aparna William DO Status: REG CLI Ordering Dr: Date: Location: [facility] Sex: F C - Electroencephalogram Date of Service: 01/18/18 History EEG is being done in this 77 yr F to rule out seizures EEG Description: This is an 18 channel EEG with 10-20 lead placement system. Bipolar montages, Referential and Circumferential montages were reviewed. Photic stimulation and Hyperventilation were performed. The posterior dominant background rhythm is 9 HZ synchronous, symmetric, reacting to eye opening and closing. Photo stimulation elicited normal driving response but no abnormal photoparoxysmal response, Hyperventilation did not elicit any abnormal photoparoxysmal response. Sleep was identified. There was no epileptiform discharges or electrographic seizures noted during this recording. EEG Interpretation This is a normal awake and asleep EEG. There is no epileptiform discharges or electrographic seizures noted during the record. 02/06/18 1455 <Electronically signed by Annika Salmon MD> Date Annika Salmon MD CC: Gonsalo Salmon MD; Aprana William DO Date Dictated: 01/26/18 1023 Date Transcribed: 01/26/18 1023 Cardiovascular Rn: RSR Signed DOWNTIME REPORT Observed: 01/16/2018 Status: F Source: [place] 1:20 PM [facility] Medical Records Department [address] [place] [address] Downtime Report MR#: [id number] Acct: [id number] Name: JACI BEE Rep #: [id number] : 1940 77 From: Arias Nevarez MD PCP: Aparna William DO Status: DIS ARLENE This patient was seen during an EMR downtime December 31, 2017 - January 07, 2018. This patient may have a combination of paper and electronic documentation or all paper documentation. All documentation is viewable within the e-chart portion of [facility] for each patient visit. ECHOCARDIOGRAM COMPLETE Observed: 01/14/2018 Status: F Source: [place] 3:31 PM [facility] Cardiovascular Services [address] [place] [address] Echo Complete 01/01/18 1352 MR#: [id number] Acct: [id number] Name: JACI BEE Rep #: [id number] : 1940 77 From: Brendan Koch MD Attending Dr: Nikita Suarez DO Status: DIS ARLENE Ordering Dr: Nikita Suarez DO Date: 01/01/18 Location: U Sex: F C Admitted: 12/31/17 Reason For Study: CVA Procedure This was a 2D Doppler, Color Flow transthoracic echocardiogram. Exam performed portable in patient room. Left Ventricle Normal LV size. Left ventricular systolic function is normal. The estimated ejection fraction is 60 %. Normal diastology for age. No regional wall motion abnormalities noted. Right Ventricle Normal RV size. Normal systolic function. Atria Normal left atrium. Normal right atrium. No doppler evidence for ASD. Mitral Valve There is no mitral annular calcification. Mild diffuse mitral valve thickening. Mild mitral valve prolapse, posterior leaflet. Mild (1+) mitral valve insufficiency. Tricuspid Valve Normal tricuspid valve. Trivial tricuspid valve insufficiency. Right ventricular systolic pressure estimated to be 30 mmHg. Aortic Valve Trisinus/trileaflet aortic valve. Moderate focal aortic valve calcification. Pulmonic Valve The pulmonic valve is not well visualized. Great Vessels Normal sized aortic root. Pericardium/Pleural No pericardial effusion. Medication Performed a rapid injection of agitated mix of 9 cc saline and 1cc air to assess for atrial septal defect. MMode/2D Measurements AND Calculations LVIDd: 3.8 cm IVSd: 1.0 cm Ao root diam: 3.0 cm LVIDs: 2.5 cm LVPWd: 1.0 cm LA dimension: 2.9 cm RVDd: 3.1 cm FS: 34.2 % LAV(MOD-bp): 20.1 ml LA A4 area: 10.8 cm2 RA A4 area: 10.3 cm2 LAV(MOD-bp) Indexed: 11.8 ml/m2 LAV(MOD-sp2): 15.6 ml LAV(MOD-sp4): 23.0 ml Doppler Measurements AND Calculations MV E max kin: 54.2 cm/sec Lat Peak E' Kin: 8.4 cm/sec Med Peak E' Kin: 7.3 cm/sec MV A max kin: 65.7 cm/sec E/E' lat: 6.5 E/E' med: 7.4 MV E/A: 0.82 Ao V2 max: 111.5 cm/sec LV V1 max: 73.5 cm/sec PA V2 max: 62.9 cm/sec Ao max P.0 mmHg LV V1 max P.2 mmHg TR max kin: 259.0 cm/sec TR max P.0 mmHg Interpretation Summary Left ventricular systolic function is normal. The estimated ejection fraction is 60 %. Mild mitral valve prolapse, posterior leaflet Mild diffuse mitral valve thickening. Mild (1+) mitral valve insufficiency. Trivial tricuspid valve insufficiency. Moderate focal aortic valve calcification. Right ventricular systolic pressure estimated to be 30 mmHg. Normal diastology for age. Comment / Disclaimer: The offiial transthoracic echocardiogram report was delayed secondary to [facility] Information Systems technical issues. A hand writtern preliminary report was previously made available for review. Ordering Physician: Nikita Suarez Referring Physician: Ben Paulino Performed By: Thalia Vargas, NIGEL, RVT 01/12/18 1102 Date Brendan Koch MD CC: Aparna William DO; Ben Paulino MD; Nikita Suarez DO Date Dictated: 01/01/18 1352 Date Transcribed: 01/12/18 110 Cardiovascular Rn: Signed DISCHARGE SUMMARY Observed: 01/08/2018 Status: F Source: [place] 9:47 AM [facility] Medical Records Department [address] [place] [address] Discharge Summary 01/08/18 0944 MR#: [id number] Acct: [id number] Name: JACI BEE Rep #: [id number] : 1940 77 From: Nikita Suarez DO PCP: Aparna William DO Status: DIS ARLENE Y Location: [place] [address]-1 Discharge Date and Diagnosis Date of Admission: 12/31/17 Date of Discharge: 01/01/18 - Primary Discharge Diagnosis #1 transient global amnesia #2 chronic migraine cephalgia #3 hyperlipidemia #4 GERD Hospital Course and Treatment Operations: None Procedures: None Summary of Care Provided: The patient is a 77 year old F who was seen in the emergency room [facility] with a chief complaint of confusion which started the morning of 12/31/17, patient's family noted that when I talk with her on the phone that she did not seem right. Evaluation in the emergency room included a CT of the brain which did not show any abnormalities, patient's labs were unremarkable. Patient appeared alert but was mildly confused. Patient was placed in observation status on PCU, she was seen in consultation by neurology and had additional imaging studies which were unremarkable for any acute process. It was felt that the patient had transient global amnesia. On 01/01/18, patient was seen and examined felt to be in stable condition for discharge home Home Medications: Medications to take at Discharge Aspirin [Aspirin, Baby] 81 mg PO DAILY@0800 01/17/16 Calcium Citrate/Vitamin D3 [Calcium Citrate +Vit D3 Tablet] 1 each PO 01/17/16 Cholecalciferol (Vitamin D3) [Vitamin D] 10,000 unit PO 01/17/16 Estrogens, Conjugated [Premarin] 1 dose VAGINAL DAILY 01/17/16 Famotidine [Pepcid] 20 mg PO DAILY 01/17/16 Hyoscyamine Sulfate 0.125 mg SL 01/17/16 L.acidoph,Paracasei, B.lactis [Probiotic] 1 each PO 01/17/16 [place]-3 Fatty Acids/Fish Oil [[place] 3 Fish Oil Softgel] 1 each PO 01/17/16 Pravastatin [Pravachol] 10 mg PO QHS 01/17/16 Sumatriptan Succinate 25 mg PO 01/17/16 Topiramate [Topamax] 25 mg DAILY 01/17/16 Vitamin E 400 unit PO 01/17/16 Primary Care Physician: Aparna William DO [Primary Care Provider] - Disposition: Home Minutes spent on discharge:: 25 Patient Condition:: Stable Medical Necessity - Tobacco Use Smoking Status: Never smoker Meaningful Use Info Meaningful Use Diagnoses (Choose all that apply): None applicable Code Visit [facility] LEONARD: 19932 Observation care discharge 01/08/18 0947 <Electronically signed by Nikita Suarez DO> Date Nikita Suarez DO Cosigner Signature (if applicable): Date CC: Aparna William DO; Nikita Suarez DO Signed MRA NECK WITHOUT Observed: 01/04/2018 Status: F Source: [place] [facility] 8:49 AM [facility] Imaging Services [address] [place] [address] MRA Neck without Contrast MR#: [id number] Acct: [id number] Name: JACI BEE Rep #: [id number] : 1940 F 77 From: Mustapha Wiseman MD PCP: Aparna William DO Status: DIS ARLENE Study: MRA Neck without Contrast Date of Exam: 01/01/18 Exam# [id number] Ordering Dr: Nikita Suarez DO STUDY: MRA NECK WITHOUT CONTRAST REASON FOR EXAM: Female, 77 years old. Confusion. TECHNIQUE: Source images were obtained, MIPs were performed. The study was performed unenhanced. COMPARISON: None. FINDINGS: RIGHT CAROTID ARTERIES: Normal right common carotid artery (CCA). Normal right common carotid bulb. Normal origin of the right internal carotid (ICA) artery without a hemodynamically significant stenosis. Normal visualized cervical portion of the right internal carotid artery. Normal origin of the right external carotid artery (ECA). LEFT CAROTID ARTERIES: Normal left common carotid artery (CCA). Normal left common carotid bulb. Normal origin of the left internal carotid (ICA) artery without a hemodynamically significant stenosis. Normal visualized cervical portion of the left internal carotid artery. Normal origin of the left external carotid artery (ECA). VERTEBRAL ARTERIES: Normal antegrade flow within the bilateral vertebral artery without a hemodynamically significant stenosis. The vertebral arteries are codominant. MRI/MRA Neck without Contrast IMPRESSION: Normal MRA of the bilateral cervical carotid and vertebral arteries. Electronically Signed: Mustapah Wiseman MD at 11:25 EDT , Service support , CC: Aparna William DO; Nikita Suarez DO Cardiovascular Rn: Signed MRA HEAD ONLY WITHOUT Observed: 01/04/2018 Status: F Source: [place] [facility] 8:49 AM [facility] Imaging Services [address] [place] [address] MRA Head ONLY without Contrast MR#: [id number] Acct: [id number] Name: JACI BEE Rep #: [id number] : 1940 F 77 From: Mustapha Wiseman MD PCP: Aparna William DO Status: DIS ARLENE Study: MRA Head ONLY without Contrast Date of Exam: 01/01/18 Exam# [id number] Ordering Dr: Nikita Suarez DO STUDY: MRA OF THE HEAD WITHOUT CONTRAST REASON FOR EXAM: Female, 77 years old. Confusion. TECHNIQUE: 3-D [id number]-uz-bruxep (TOF) imaging was performed with MIPs. The study was performed unenhanced. COMPARISON: None. FINDINGS: Normal bilateral petrous carotid arteries. Normal right cavernous carotid artery with a normal supraclinoid bifurcation. Normal left cavernous carotid artery with a normal supraclinoid bifurcation. Normal right A1 segment of the anterior cerebral artery. Normal left A1 segment of the anterior cerebral artery. Normal intact anterior communicating artery (ACOM). Normal bilateral A2 segments of the anterior cerebral arteries. Normal right M1 and M2 segments of the middle cerebral arteries, with a normal M1 bifurcation. Normal left M1 and M2 segments of the middle cerebral arteries, with a normal M1 bifurcation. origin of the right [employer]OT BILLING CL[employer] off the right internal carotid artery rather than a widely patent right posterior communicating artery (PCOM). Normal left posterior communicating artery (PCOM). Normal bilateral vertebral arteries. Normal basilar artery with a normal basilar bifurcation. The visualized bilateral superior cerebellar (SCA) arteries are normal. Absent right P1 segment. Widely patent left P1, bilateral P2 and visualized P3 segments of the posterior cerebral arteries. There is no demonstrated aneurysm of the standing [place]. There is no major vessel occlusion or hemodynamically significant stenosis. MRI/MRA Head ONLY without Contrast IMPRESSION: Normal MRA of the head Electronically Signed: Mustapha Wiseman MD at 11:36 EDT , Service support , CC: Aparna William DO; Nikita Suarez DO Cardiovascular Rn: Signed BRAIN WITHOUT Observed: 01/04/2018 Status: F Source: [place] [facility] 8:49 AM [facility] Imaging Services [address] [place] [address] Brain without Contrast MR#: [id number] Acct: [id number] Name: JACI BEE Rep #: [id number] : 1940 F 77 From: Mustapha Wiseman MD PCP: Aparna William DO Status: DIS ARLENE Study: Brain without Contrast Date of Exam: 01/01/18 Exam# [id number] Ordering Dr: Nikita Suarez DO STUDY: MRI BRAIN WITHOUT CONTRAST REASON FOR EXAM: Female, 77 years old. Confusion. TECHNIQUE: Standardized multiplanar fat and water weighted pulse sequences were obtained. COMPARISON: CT head without contrast 12/31/2017. FINDINGS: No restricted diffusion to suspect acute or subacute ischemic infarct. No focal signal abnormalities throughout the brain parenchyma. The tolliver matter, white matter, ventricles and cisterns are normal. Normal size of the ventricles and extra-axial spaces for the patient's age. Normal white matter tracts of the supratentorial brain. Normal bilateral basal ganglia. Normal thalami. There is no extra-axial fluid accumulation. Normal flow voids within the major intracranial circulation suggesting patency by spin echo criteria. Normal sella turcica, pituitary gland, infundibular stalk, optic chiasm and hypothalamus. Normal tectal plate and pineal gland. Normal midbrain, lorenzo and medulla. Normal cerebellum. Normal basal cisterns. Normal bilateral temporal bones. Normal bilateral internal auditory canals. No demonstrated orbital abnormality, within the constraints of a routine brain study. Normal visualized paranasal sinuses. Normal calvarium and skull base. Normal visualized soft tissue structures. Normal visualized upper cervical spine. MRI/Brain without Contrast IMPRESSION: Normal unenhanced MRI of the brain. Electronically Signed: Mustapha Wiseman MD at 12:01 EDT , Service support , CC: Aparna William DO; Nikita Suarez DO Cardiovascular Rn: Signed BRAIN/HEAD WITHOUT Observed: 01/03/2018 Status: F Source: [place] [facility] 3:33 PM [facility] Imaging Services [address] [place], [place] [address] Brain/Head without Contrast MR#: [id number] Acct: [id number] Name: ROHITJACI E Rep #: [id number] : 1940 F 77 From: Harshil Guerin MD PCP: Aparna William DO Status: DIS ARLENE Study: Brain/Head without Contrast Date of Exam: 12/31/17 Exam# [id number] Ordering Dr: Ben Paulino MD STUDY: CT BRAIN WITHOUT CONTRAST REASON FOR EXAM: Female, 77 years old. Confusion RADIATION DOSAGE (If Supplied By Facility): CTDIvol = ( 60.81 ) mGy, DLP = ( 998.67 ) mGycm TECHNIQUE: Transaxial CT imaging of the brain was performed without administration of intravenous contrast material. Individualized dose optimization techniques were used for this CT. COMPARISON: None. FINDINGS: There is no acute bleed or infarct. There are normal white matter tracts. The ventricles are normal in configuration. There is no hydrocephalus. The visualized paranasal sinuses are clear. The mastoid air cells are well aerated. There is no skull fracture. CT/Brain/Head without Contrast IMPRESSION: No acute intracranial abnormality. Electronically Signed: Harshil Guerin, at 17:17 EDT Tel , Service support , CC: Aparna William DO; Ben Paulino MD Cardiovascular Rn: Signed CHEST 1 VIEW Observed: 01/03/2018 Status: F Source: ANGIE (PORTABLE) 3:30 PM [facility] Imaging Services [address] [place] [address] Chest 1 View (Portable) MR#: [id number] Acct: [id number] Name: JACI BEE Rep #: [id number] : 1940 F 77 From: Jose J Gotti MD PCP: Aparna William DO Status: DIS ARLENE Study: Chest 1 View (Portable) Date of Exam: 12/31/17 Exam# [id number] Ordering Dr: Meek Harrell DO STUDY: X-RAY CHEST REASON FOR EXAM: Female, 77 years old. Acute chest pain TECHNIQUE: Single AP portable view of the chest. COMPARISON: None. FINDINGS: EKG leads overlie the chest There are interstitial fibrotic changes of the lungs. There is no demonstrated pleural abnormality. Normal size heart. Normal mediastinum and johnna. Normal visualized pulmonary arteries. Normal visualized aortic arch and descending thoracic aorta. There are diffuse degenerative changes of the visualized thoracic spine. Normal visualized ribs, clavicles, and shoulders. There is no demonstrated abnormality of the visualized soft tissue structures of the upper abdomen. RAD/Chest 1 View (Portable) IMPRESSION: Degenerative changes, as described above. No demonstrated acute cardiopulmonary process. Electronically Signed: Renaldo Gotti MD at 14:37 EDT , Service support , CC: Aparna William DO; Meek Harrell DO Cardiovascular Rn: Signed CBC-COMPLETE BLOOD CNT Collected: 01/01/2018 Status: F Source: EUFEMIA NO DIFF 5:55 AM [facility] Order Comment: RESULT(S) PREVIOUSLY REPORTED ON MANUAL REQUISITION DURING DOWNTIME. TYPE CODE TESTS RESULT OUT OF RANGE REFERENCE UNITS LAB L100.1000 4.4-11.0 K/mm3 Low WBC 4.1 LAB L100.1200 4.2-5.4 M/mm3 Normal RBC 4.87 LAB L100.1300 12.0-15.0 g/dl Normal HGB 14.3 LAB L100.1400 37-47 % Normal HCT 45.2 LAB L100.1500 81-99 fL Normal MCV 92.8 LAB L100.1600 27.0-32.0 pg Normal MCH 29.4 LAB L100.1700 32-36 g/gl Low MCHC 31.6 LAB L100.1810 11.6-14.6 % Normal RDW CV 12.5 LAB L100.1820 35.1-43.9 fl Normal RDW SD 41.9 LAB L100.1900 150-450 K/mm3 Normal PLT 176 LAB L100.2000 6.2-12.0 fl Normal MPV 9.9 Performed By: #### L100.0500 #### [facility] [address] [place], [address] BASIC METABOLIC Collected: 01/01/2018 Status: F Source: EUFEMIA PROFILE (BMP) 5:30 AM [facility] Order Comment: RESULT(S) PREVIOUSLY REPORTED ON MANUAL REQUISITION DURING DOWNTIME. TYPE CODE TESTS RESULT OUT OF RANGE REFERENCE UNITS LAB L501.0100 74-106 mg/dL Normal GLU 80 Result Comment: Please note revised GLUCOSE reference range effective 2017. LAB L501.1000 7-18 mg/dL Normal BUN 14 LAB L501.1100 0.55-1.02 mg/dL Normal CREAT,SERUM 0.73 Result Comment: The validity of the calculated GFR AND GFRAA in patients over 70 years has not been determined. Clinical correlation is essential. LAB L501.1110 >60 mL/min Normal EST GFR 82 LAB L501.1115 >60 mL/min Normal EST GFR - AA 99 LAB L501.1300 10-20 RATIO Normal BUN/CRE 19.2 LAB L501.2200 8.5-10.1 mg/dL Low CA 8.4 LAB L501.5300 136-145 mmol/L Normal NA 143 LAB L501.5600 3.5-5.1 mmol/L Normal K 3.6 LAB L501.5900 98-107 mmol/L High CL 112 LAB L501.6100 21.0-32.0 mmol/L Normal CO2 25.0 LAB L501.6200 5-15 Normal GAP 6 Performed By: #### L500.2500, L500.4100 #### [facility] [address] [place], [address] LIPID PROFILE Collected: 01/01/2018 Status: F Source: ANGIE 5:30 AM [facility] Order Comment: RESULT(S) PREVIOUSLY REPORTED ON MANUAL REQUISITION DURING DOWNTIME. TYPE CODE TESTS RESULT OUT OF RANGE REFERENCE UNITS LAB L501.4900 200 mg/dL Normal CHOL 176 Result Comment: <200 mg/dL Desirable 200-240 mg/dL Borderline >240 mg/dL High Risk LAB L501.5000 mg/dL Normal TRIG 60 Result Comment: The drugs N-Acetylcysteine and Metamizole may falsely depress this assay. Serum Triglycerides Reference Interval Normal <150 mg/dL Borderline high 150 - 199 mg/dL High 200 - 499 mg/dL Very High > or = 500 mg/dL LAB L501.6400 mg/dL Normal HDL 51 Result Comment: The drugs N-Acetylcysteine and Metamizole may falsely depress this assay. Reference Range HDL <40 mg/dL Low HDL Cholesterol HDL >or= 60 mg/dL High HDL Cholesterol LAB L501.6500 0-130 mg/dL Normal LDL 113 LAB L501.6600 5-40 mg/dL Normal VLDL 12 Performed By: #### L500.2500, L500.4100 #### [facility] [address] [place], [place], [id number] URINALYSIS, COMPLETE Collected: 12/31/2017 Status: F Source: ANGIE 2:10 PM [facility] Order Comment: RESULT(S) PREVIOUSLY REPORTED ON MANUAL REQUISITION DURING DOWNTIME. How was Urine Obtained? CLEAN CATCH TYPE CODE TESTS RESULT OUT OF RANGE REFERENCE UNITS LAB L400.3000 Yellow COLOR Normal Yellow LAB L400.3050 Clear Normal CLARITY Clear LAB L400.3200 Normal mg/dl Normal GLUCOSE, UR NEGATIVE LAB L400.3300 Negative mg/dL Normal BILIRUBIN URINE Negative LAB L400.3400 Negative mg/dl Normal KETONE UR Negative LAB L400.3465 1.002-1.030 Normal SP.GR. DIPSTX 1.030 LAB L400.3550 5.0 - 8.0 pH UR Normal 6.0 LAB L400.3600 Negative mg/dl PROT Normal DIPSTX Negative LAB L400.3700 Normal mg/dl Normal UROBILI Normal LAB L400.3750 Negative Normal NITRITE UR Negative LAB L400.3780 Negative /ul High 10 OCCULT BLOOD-UR LAB L400.3800 Negative /ul LEUK Normal ESTERASE Negative LAB L400.4050 0-5 /hpf WBC 0 Normal SEEN LAB L400.4100 0-5 /hpf 0 Normal RBC-UA SEEN LAB L400.4150 5-10 /hpf SQUAM Normal EPI 0-5 SEEN LAB L400.4300 None Seen /hpf 0 Normal BACTERIA SEEN LAB L400.4350 <or=2+ /hpf 0 Normal MUCUS, URINE SEEN Performed By: #### L400.0001 #### [facility] [address] [place], [place], [id number] CBC W/DIFF, AUTOMATED Collected: 12/31/2017 Status: F Source: ANGIE 2:10 PM [facility] Order Comment: TESTING PERFORMED AT [facility] RESULT(S) PREVIOUSLY REPORTED ON MANUAL REQUISITION DURING DOWNTIME. TYPE CODE TESTS RESULT OUT OF RANGE REFERENCE UNITS LAB L100.1000 4.4-11.0 K/mm3 5.5 Normal WBC LAB L100.1200 4.2-5.4 M/mm3 4.98 Normal RBC LAB L100.1300 12.0-15.0 g/dl 14.9 Normal HGB LAB L100.1400 37-47 % 46.5 Normal HCT LAB L100.1500 81-99 fL 93.4 Normal MCV LAB L100.1600 27.0-32.0 pg 29.9 Normal MCH LAB L100.1700 32-36 g/gl 32.0 Normal MCHC LAB L100.1810 11.6-14.6 % 12.8 Normal RDW CV LAB L100.1820 35.1-43.9 fl 42.9 Normal RDW SD LAB L100.1900 150-450 K/mm3 172 Normal PLT LAB L100.2000 6.2-12.0 fl 10.6 Normal MPV LAB L100.2100 47-70 % 67.4 Normal NEUT% LAB L100.2200 19-41 % 24.8 Normal LY% LAB L100.2300 0-10 % 5.7 Normal MONO% LAB L100.2400 0-5 % 1.7 Normal EO% LAB L100.2500 0-1 % 0.4 Normal BASO% LAB L100.2550 0.0-0.9 % IM Test Normal GRAN % not performed LAB L100.2620 2.0-7.7 X10 3/uL 3.7 Normal Absolute Neut LAB L100.2720 0.83-4.51 X10 3/ul 1.35 Normal Absolute Lymph Performed By: #### L100.0100 #### [facility] [address] [place], [place], [address] BASIC METABOLIC Collected: 12/31/2017 Status: F Source: EUFEMIA PROFILE (BMP) 12:00 AM [facility] Order Comment: RESULT(S) PREVIOUSLY REPORTED ON MANUAL REQUISITION DURING DOWNTIME. 'TROP' Serial specimen #1, #2, #3, or #4: 1 TYPE CODE TESTS RESULT OUT OF RANGE REFERENCE UNITS LAB L501.0100 74-106 mg/dL High GLU 118 Result Comment: Fasting Glucose result from 100 to 125 mg/dL suggests IMPAIRED HOMEOSTASIS per A.D.A. criteria. Please note revised GLUCOSE reference range effective 2017. LAB L501.1000 7-18 mg/dL Normal BUN 18 LAB L501.1100 0.55-1.02 mg/dL High CREAT,SERUM 1.05 Result Comment: The validity of the calculated GFR AND GFRAA in patients over 70 years has not been determined. Clinical correlation is essential. LAB L501.1110 >60 mL/min Low EST GFR 54 LAB L501.1115 >60 mL/min Normal EST GFR - AA 65 LAB L501.1300 10-20 RATIO Normal BUN/CRE 17.1 LAB L501.2200 8.5-10.1 mg/dL Normal CA 8.8 LAB L501.5300 136-145 mmol/L Normal NA 143 LAB L501.5600 3.5-5.1 mmol/L Normal K 3.8 LAB L501.5900 98-107 mmol/L High CL 111 LAB L501.6100 21.0-32.0 mmol/L Normal CO2 26.0 LAB L501.6200 5-15 Normal GAP 6 Performed By: #### L500.2500, L501.4010 #### [facility] [address] [facility] [place], [address] TROPONIN-I Collected: 12/31/2017 Status: F Source: ANGIE 12:00 AM [facility] Order Comment: RESULT(S) PREVIOUSLY REPORTED ON MANUAL REQUISITION DURING DOWNTIME. 'TROP' Serial specimen #1, #2, #3, or #4: 1 TYPE CODE TESTS RESULT OUT OF RANGE REFERENCE UNITS LAB L501.4010 <0.045 ng/mL High < 0.150 TROPONIN-I Result Comment: TROPONIN-I EXPECTED VALUES <0.045 Negative 0.045 - 0.590 Consistent with Cardiac Damage > OR = 0.600 Critical Value Not every elevated troponin is indicative of NH. These values should be used with clinical judgement in examining the patient's clinical picture for diagnosis. To establish a diagnosis of NH versus myocardial injury, there must be a demonstrated rise and/or fall in the troponin values, in addition to ischemic symptoms, EKG changes, new regional wall motion abnormality, and/or angiographical evidence. PLEASE NOTE: REFERENCE RANGES EDITED 17 Performed By: #### L500.2500, L501.4010 #### [facility] [address] [place], [address] PULMONARY FUNCTION Observed: 09/27/2017 Status: F Source: EUFEMIA TEST 1:40 PM [facility] REPOSIT[facility] Pulmonary Services/Neurology [address] [place] [address] MR#: [id number] Acct: [id number] Name: JACI BEE Rep #: [id number] : 1940 76 From: Robert Rodriguez DO Referring Dr: Aparna William DO Status: REG CLI Ordering Dr: Date: Location: [facility] Sex: F C INTRODUCTION: The patient is a 76-year-old female currently under the care of Dr. william the presents for pulmonary function testing secondary to a diagnosis of hyperinflation. Respiratory therapy reports good patient effort and reports no other concerns. Bronchodilators were used during testing. INTERPRETATION: Forced expiration spirometry demonstrates no evidence of a large airways obstructive ventilatory defect. There was no significant response to aerosolized bronchodilators, based upon strict ATS criteria. Spirogram is of good quality and plateau gradually indicating slow emptying of the lungs. The respiratory flow volume loop reveals decreased expiratory flow rates primarily at high lung volumes which can be seen in small airways obstruction. Body plethysmography was performed and reveals lung volumes to be within normal limits. Diffusing capacity by single breath CO is within normal limits. IMPRESSION: These pulmonary function studies are essentially within normal limits. There are subtle findings of potential small airways obstruction. If there is clinical concern for underlying asthma, a methacholine challenge can be ordered. 09/27/17 1340 <Electronically signed by Robert Rodriguez DO> Date Robert Rodriguez DO CC: Aparna William DO Date Dictated: 09/27/17 1336 Date Transcribed: 09/27/171335 Cardiovascular Rn: XI Signed SCREENING MAMM (CAD), Observed: 09/20/2017 Status: F Source: EUFEMIA BILAT 9:16 AM [facility] REPOSIT[facility] Imaging Services [address] [place] [address] SCREENING MAMM (CAD), BILAT MR#: [id number] Acct: [id number] Name: JACI BEE Rep #: [id number] : 1940 F 76 From: Constantino Sparks MD PCP: Aparna William DO Status: REG CLI Study: SCREENING MAMM (CAD), BILAT Date of Exam: 09/20/17 Exam# [id number] Ordering Dr: Aparna William DO MAMMOGRAPHY - BILATERAL SCREENING REASON FOR EXAM: Female, 76 years old. Routine annual screening examination. PERTINENT HISTORY: Non-contributory. TECHNIQUE: Digital bilateral breast chilango (3D mammographic [...] delay biopsy of a clinically suspicious abnormality. [id number] Electronically Signed: Constantino Sparks MD at 11:06 EST Tel [phone], Service support , CC: Aparna William DO Cardiovascular Rn: Signed LIVER Observed: 08/23/2017 Status: F Source: EUFEMIA 9:06 AM [facility] Imaging Services [address] [place] [address] Liver MR#: [id number] Acct: [id number] Name: JACI BEE Rep #: [id number] : 1940 F 76 From: Constantino Sparks MD PCP: Aparna William DO Status: REG CLI Study: Liver Date of Exam: 08/23/17 Exam# [id number] Ordering Dr: Aparna William DO STUDY: ABDOMINAL ULTRASOUND - RIGHT UPPER QUADRANT REASON FOR VISIT: Female, 76 years old. History of fatty infiltration of the liver. TECHNIQUE: Ultrasound evaluation of the right upper quadrant was performed with real-time and static tolliver-scale imaging. TECHNICAL QUALITY: Adequate. COMPARISON: Comparison is made with prior examination dated March 26, 2009. FINDINGS: Liver: The liver measures 16.5 cm. There is increased echogenicity consistent with fatty infiltration. The bile ducts are within normal limits. There is hepatic color flow. The direction of portal flow is hepatopetal. There is no demonstrated mass lesion. Gallbladder: Normal distended gallbladder. The gallbladder wall measures 2.7 mm. There is a negative sonographic Sherman's sign. There is no pericholecystic fluid. There are no gallstones. Common Bile Duct (C.B.D.): The common bile duct measures 5.7 mm. Pancreas: Normal size of the head, body and tail of the pancreas. There is normal echogenicity of the pancreas. There is no demonstrated pancreatic mass or cyst. Right Kidney: Normal size of the right kidney. The right kidney measures 9.9 cm x 5.2 cm x 4.8 cm. Normal renal cortex. The right cortex measures 1.1 cm. There is no demonstrated renal mass or cyst. There is no right hydronephrosis. US/Liver IMPRESSION: Fatty infiltration of the liver. Electronically Signed: Constantino Sparks MD at 10:14 EST Tel [phone], Service support , CC: Aparna William DO Cardiovascular Rn: Signed CHEST PA AND LATERAL Observed: 08/20/2017 Status: F Source: EUFEMIA 11:31 AM [facility] Imaging Services [address] [place] [address] Chest PA and Lateral MR#: [id number] Acct: [id number] Name: JACI BEE Rep #: [id number] : 1940 F 76 From: Constantino Sparks MD PCP: Aparna William DO Status: REG CLI Study: Chest PA and Lateral Date of Exam: 08/20/17 Exam# [id number] Ordering Dr: Aparna William DO STUDY: X-RAY CHEST REASON FOR EXAM: Female, 76 years old. 2 month history of atypical chest pain. TECHNIQUE: PA and lateral views of the chest. COMPARISON: None. FINDINGS: Hyperinflation. Decreased bronchovascular markings suggestive of emphysematous change. Scattered calcified granulomas. Mild increased linear markings at the lung bases suggestive of scarring. Increased linear markings at the right apex suggestive of scarring. There is no demonstrated pleural abnormality. Normal size heart. Normal mediastinum and johnna. Normal visualized pulmonary arteries. Normal visualized aortic arch and descending thoracic aorta. There is demineralization of the osseous structures. Normal visualized ribs, clavicles, and shoulders. There is no demonstrated abnormality of the visualized soft tissue structures of the upper abdomen. RAD/Chest PA and Lateral IMPRESSION: Hyperinflation. Findings suggest some mild linear scarring at the right apex and at both lung bases. Electronically Signed: Constantino Sparks MD at 19:29 EST Tel [phone], Service support , CC: Aparna William DO Cardiovascular Rn: Signed ALLERGIES ALLERGIES DATE TYPE / CODE NAME / CODE REACTION SEVERITY SOURCE 06/26/2018 Drug codeine/F006 Other Unknown [facility] All[facility]/4160 768461([facility] [address](SNOMED M) Repository CT) 06/26/2018 Drug nabumetone/F Unknown Unknown [place] [facility] Allergy/4160 [id number]([facility] [address](SNOMED NORM) Repository CT) ENCOUNTERS ENCOUNTERS ADMIT/DISCHARGE ACCOUNT ADMITTING ENCOUNTER LOCATION SOURCE NUMBER CLASS 07/09/2018 [id number] Ambulatory [place] [facility] Hospital ing:[facility] Repository 06/26/2018/ [id number] Ambulatory BMSBuilding:B [place] 8 7 [facility] Repository 06/25/2018 [id number] Ambulatory [place] [facility] Hospital ing:CT Repository 06/14/2018 [id number] Ambulatory Building:[facility] Practices Repository 05/30/2018 [id number] Ambulatory [place] 0 [facility] Hospital ing:[facility] Repository 05/30/2018 [id number] Ambulatory BMSBuilding:W [place] [facility] Repository 05/24/2018 [id number] Ambulatory [place] 2 [facility] Hospital ing:[facility] Repository 05/16/2018/ [id number] Ambulatory BMSBuilding:B [place] 8 8 [facility] Repository 05/15/2018 [id number] Ambulatory BMSBuilding:B [place] 2 [facility] Repository 05/06/2018 [id number] Ambulatory [place] [facility] Hospital ing:[facility] Repository 01/18/2018 [id number] Ambulatory [place] 3 [facility] Hospital ing:PSN Repository 01/01/2018/ [id number] Ambulatory BMSBuilding:W [place] [address] [facility] Repository 12/31/2017/ [id number] Tere[place]nm, Ambulatory [place] [facility] 6 [facility] ing:PCURoom: Repository YVT433Dkr: 1 12/31/2017 [id number] [place], Ambulatory BMSBuilding:B [place] 5 [place] Repository 12/31/2017/ [id number] Ambulatory BMSBuilding:W [place] [address] [facility] Repository 12/31/2017/ [id number] Ambulatory BMSBuilding:W [place] [address] [facility] Repository 12/12/2017 [id number] Ambulatory [place] 7 [facility] ing:[facility] Repository 09/27/2017 [id number] Ambulatory [place] 1 [facility] ing:PSN Repository 09/27/2017 [id number] Ambulatory BMSBuilding:W [place] [facility] Repository 09/20/2017 [id number] Ambulatory [place] 7 [facility] ing:BI Repository 08/23/2017 [id number] Ambulatory [place] [facility] Hospital ing:[facility] Repository 08/20/2017 [id number] Ambulatory [place] 4 [facility] ing:HPRAD Repository PAYERS PAYERS ENCOUNTER GUARANTOR PAYER SUBSCRIBER SOURCE 07/09/2018 JACI Cannon Primary NOT GIVENUNK [place] [id number] CR Insurance:SELF PAY [place] [address]Tel: (330) Number: Effective Repository [phone] () Date:2018-07-04 06/26/2018 JACI E Primary JACI E [place] [id number] CR Insurance:MEDICARE WENGERDDOB: [address] PART A [facility] [id number] [place] [address]Tel: [phone]) Number: Repository [phone] () [id number] Date:2018-05-16 06/26/2018 Secondary NOT GIVENUNK [place] Insurance:SELF PAY [facility] Number: Effective Repository Date:2018-06-26 06/25/2018 JACI Cannon Primary JACI E [place] [id number] CR Insurance:MEDICARE WENGERDDOB: [address] PART A [facility] [id number] [place] [address]Tel: (330) Number: Repository [phone] () [id number] Date:2018-06-14 06/25/2018 Secondary NOT GIVENUNK [place] Insurance:SELF PAY [facility] Number: Effective Repository Date:2018-06-14 06/14/2018 JACI E Primary JACI E OHIP Practices WENGERDDOB: Insurance:MedicarePol WENGERDDOB: Repository icy Number: [id number] [facility] [id number] [address] Date:[id number] [address]Qee: Name:[place] [address]Tel: [id number], [place] X1st (HP)Tel: [address]AH: [phone] X1st () [phone] () 05/30/2018 JACI E Primary JACI E [place] [id number] CR Insurance:MEDICARE WENGERDDOB: [address], in PART A [facility] [id number] [place] [id number]: (330) Number: Repository [phone] () [id number] Date:2018-05-21 05/30/2018 Secondary NOT GIVENUNK [place] Insurance:SELF PAY [facility] Number: Effective Repository Date:2018-05-21 05/30/2018 JACI E Primary JACI E [place] [id number] CR Insurance:MEDICARE WENGERDDOB: [address], [place] PART A [facility] [id number] [place] [address]Tel: (330) Number: Repository [phone] () [id number] Date:2018-05-21 05/30/2018 Secondary NOT GIVENUNK [place] Insurance:SELF PAY [facility] Number: Effective Repository Date:2018-05-30 05/24/2018 JACI E Primary JACI E [place] [id number] CR Insurance:MEDICARE WENGERDDOB: [address], [place] PART A [facility] [id number] [place] [address]Tel: (330) Number: Repository [phone] () [id number] Date:2018-05-24 05/24/2018 Secondary NOT GIVENUNK [place] Insurance:SELF PAY [facility] Number: Effective Repository Date:2018-05-24 05/16/2018 JACI Cannon Primary JACI E [place] [id number] CR Insurance:MEDICARE WENGERDDOB: [address], in PART A [facility] [id number] [place] [address]Tel: (330) Number: Repository [phone] () [id number] Date:2018-04-30 05/16/2018 Secondary NOT GIVENUNK [place] Insurance:SELF PAY [facility] Number: Effective Repository Date:2018-04-30 05/15/2018 JACI E Primary JACI E [place] [id number] CR Insurance:MEDICARE WENGERDDOB: [address], in PART A [facility] [id number] [place] [address]Tel: (330) Number: Repository [phone] () [id number] Date:2018-05-15 05/15/2018 Secondary NOT GIVENUNK [place] Insurance:SELF PAY [facility] Number: Effective Repository Date:2018-05-15 05/06/2018 JACI E Primary JACI E [place] [id number] CR Insurance:MEDICARE WENGERDDOB: [address], [place] PART A [facility] [id number] [place] [address]Tel: (330) Number: Repository [phone] () [id number] Date:2018-04-30 05/06/2018 Secondary NOT GIVENUNK [place] Insurance:SELF PAY [facility] Number: Effective Repository Date:2018-04-30 01/18/2018 JACI E Primary JACI E [place] [id number] CR Insurance:MEDICARE WENGERDDOB: [address], in PART A [facility] [id number] [place] [address]Tel: (330) Number: Repository [phone] () [id number] Date:2018-01-11 01/18/2018 Secondary NOT GIVENUNK [place] Insurance:SELF PAY [facility] Number: Effective Repository Date:2018-01-11 01/01/2018 Sushil Amaya Primary JACI Cannon [place] [id number] Insurance:MEDICARE WENGERDDOB: Community [facility] [address] PART A [facility] [id number], [place] Number: Repository [phone]: 330 [id number] [phone] () Date:2017-12-31 01/01/2018 Secondary NOT GIVENUNK [place] Insurance:SELF PAY [facility]: Effective Repository Date:2018-01-01 12/31/2017 Sushil Amaya Primary JACI Cannon Eufemia [id number] Insurance:MEDICARE WENGERDDOB: [facility] [address] PART A [facility] [id number], [place] Number: Repository [id number]: 330 [id number] [phone] () Date:2017-12-31 12/31/2017 Secondary NOT GIVENUNK [place] Insurance:SELF PAY [facility] Number: Effective Repository Date:2017-12-31 12/31/2017 Sushil Amaya Primary JACI Cannon Eufemia [id number] Insurance:MEDICARE WENGERDDOB: [facility] [address] PART A [facility] [id number], [place] Number: Repository [id number]: 330 [id number] [phone] () Date:2017-12-31 12/31/2017 Secondary NOT GIVENUNK [place] Insurance:SELF PAY [facility] Number: Effective Repository Date:2017-12-31 12/31/2017 Sushil Amaya Primary JACI Cannon Euf[place] [id number] Insurance:MEDICARE WENGERDDOB: [facility] [address] PART A [facility] [id number], [place] Number: Repository [id number]: 330 [id number] [phone] () Date:2017-12-31 12/31/2017 Secondary NOT GIVENUNK [place] Insurance:SELF PAY [facility] Number: Effective Repository Date:2017-12-31 12/31/2017 Sushil Monique Primary JACI Cannon [place] [id number] Insurance:MEDICARE WENGERDDOB: [facility] [address] PART A [facility] [id number], [place] Number: Repository [id number]: 330 [id number] [phone] () Date:2017-12-31 12/31/2017 Secondary NOT GIVENUNK [place] Insurance:SELF PAY [facility] Number: Effective Repository Date:2017-12-31 12/12/2017 Sushil J Primary NOT GIVENUNK [place] [id number] Insurance:SELF PAY [address], [place] Number: Effective Repository [id number]: ([phone]) Date:2017-12-03 [phone] () 09/27/2017 Sushil J Primary JACI E Euf[place] [id number] Insurance:MEDICARE WENGERDDOB: [facility] [address] PART A [facility] [id number], [place] Number: Repository [id number]: 330 [id number] [phone] () Date:2017-08-31 09/27/2017 Secondary NOT GIVENUNK [place] Insurance:SELF PAY [facility] Number: Effective Repository Date:2017-08-31 09/27/2017 Sushil J Primary JACI E [place] [id number] Insurance:MEDICARE WENGERDDOB: [facility] [address] PART A [facility] [id number], [place] Number: Repository [id number]: 330 [id number] [phone] () Date:2017-08-31 09/27/2017 Secondary NOT GIVENUNK [place] Insurance:SELF PAY [facility] Number: Effective Repository Date:2017-09-27 09/20/2017 Sushil J Primary JACI E [place] [id number] Insurance:MEDICARE WENGERDDOB: [facility] PART A [facility] [id number], [place] Number: Repository [id number]: 330 [id number] [phone] () Date:2017-08-20 09/20/2017 Secondary NOT GIVENUNK [place] Insurance:SELF PAY [facility] Number: Effective Repository Date:2017-08-20 08/23/2017 Sushil Amaya Primary JACI Kassandra Eufemia [id number] Insurance:[facility] PART A [facility] [id number] Number: Repository [id number]: 330 [id number] [phone] () Date:2017-08-20 08/23/2017 Secondary NOT GIVENUNK [place] Insurance:SELF PAY [facility] Number: Effective Repository Date:2017-08-20 08/20/2017 Sushil Amaya Primary JACI Kassandra [place] [id number] Insurance:MEDICARE WENGERDDOB: [facility] PART A [facility] [id number] Number: Repository [id number]: 330 [id number] [phone] () Date:2017-08-20 08/20/2017 Secondary NOT GIVENUNK [place] Insurance:SELF PAY [facility] Number: Effective Repository Date:2017-08-20
== END ==
PROVIDERS: Family Provider Internal Medicine; PCP Internal Medicine; Referring Provider Internal Medicine; Visit Provider Internal Medicine
DX: J84.10 Pulmonary fibrosis, unspecified (principal)
CPT/HCPCS: 71250

== ENCOUNTER → 2018-09-25 12:35 | Outpatient (CLI) | payer MEDICARE, SELFPAY ==
[2018-09-25 11:37] VITALS: BMI 21.6
[2018-09-25 13:32] LABS: Hematocrit 47.7 % (37-47); Hemoglobin 15.2 g/dl (12.0-15.0); Mean Corp Hgb Conc 31.9 g/gl (32-36); Mean Corpuscular Hgb 29.4 pg (27.0-32.0); Mean Corpuscular Volume 92.3 fL (81-99); Mean Platelet Vol. 9.7 fl (6.2-12.0); Platelet Count 176 K/mm3 (150-450); RBC Distribution Width CV 12.2 % (11.6-14.6); RBC Distribution Width SD 40.3 fl (35.1-43.9); Red Blood Count 5.17 M/mm3 (4.2-5.4); White Blood Count 4.8 K/mm3 (4.4-11.0)
[2018-09-25 13:45] LABS: Scan Indicated on CBC? Y/N NO
[2018-09-25 13:51] LABS: Anion Gap 6 (5-15); BUN 25 mg/dL (7-18); BUN/Creat Ratio 32.1 RATIO (10-20); Chloride 106 mmol/L (98-107); Creatinine, Serum 0.78 mg/dL (0.55-1.02); EST Glomerular Filtration Rate 76 mL/min (>60); Est Glom Filt Rate - Afr Amer 92 mL/min (>60); Glucose 82 mg/dL (74-106); Potassium 4.3 mmol/L (3.5-5.1); Sodium Level 139 mmol/L (136-145)
== END ==
PROVIDERS: Family Provider Internal Medicine; PCP Internal Medicine; Referring Provider Internal Medicine Cardiovascular Disease; Visit Provider Internal Medicine Cardiovascular Disease
DX: I49.3 Ventricular premature depolarization (principal); I51.9 Heart disease, unspecified; R00.2 Palpitations
CPT/HCPCS: 36415; 80048; 85027

== ENCOUNTER 2018-10-07 06:31 | Day surgery (SDC) | payer MEDICARE, SELFPAY ==
[2018-09-25 11:37] VITALS: BMI 21.6
[2018-10-04 10:14] VITALS: BMI 21.6
--- NOTE | 2018-10-07 07:49 | CL.IE_ITS ---
Patient: JACI BEE Study Date: 10/07/2018 Performing: Bari Mosley MD : 1940 Age: 77 Gender: female PROCEDURES PERFORMED [id number] OF LOOP RECORDER INDICATIONS Atrial fibrillation and complete heart block PROCEDURE DETAILS The patient was brought to the Catheterization Lab in the postabsorptive nonsedated state. Infor med consent was obtained prior to the procedure. Local anesthetic was given subcutaneously to the le ft upper chest area with Lidocaine 2%. Incision was made to the left upper chest. ICM Loop Recorder w as inserted. Steri-strips applied to Lt chest area. The patient tolerated the procedure well. Estimated Blood Loss: 10 ml's IMPLANTED / EX-PLANTED DEVICES IMPLANTED DEVICE(S): ICM Loop Recorder - Appeals And Generalist Clerk: [employer], Model # Reveal LINQ LNQ11 , Serial # [id number] DEVICE PARAMETERS CONCLUSIONS / RECOMMENDATIONS Device Conclusions: Successful implantation of a patient activated loop recorder. Device Recommendations: Follow up with Primary Care Physician PROCEDURE MEDICATIONS Versed 1 mg IV Oxygen: 2 L/min via nasal cannula Antibiotic given in appropriate timeframe. Ancef 1 Gm IV @ 10/07/2018 07:37:11 Signed By Bari Mosley MD On 10/07/2018 07:49:19 Bari Mosley MD
== END 2018-10-07 08:50 | disposition home or self-care (01) ==
PROVIDERS: Family Provider Internal Medicine; PCP Internal Medicine; Referring Provider Internal Medicine Cardiovascular Disease; Visit Provider Internal Medicine Cardiovascular Disease
DX: I49.1 Atrial premature depolarization (principal); I49.3 Ventricular premature depolarization; R00.2 Palpitations; E78.5 Hyperlipidemia, unspecified; I10 Essential (primary) hypertension; K21.9 Gastro-esophageal reflux disease without esophagitis; Z79.82 Long term (current) use of aspirin; Z79.899 Other long term (current) drug therapy
CPT/HCPCS: 33285; 99152; J7040

== ENCOUNTER → 2018-10-31 09:27 | Outpatient (CLI) | payer MEDICARE, SELFPAY ==
[2018-06-26 11:25] VITALS: BMI 21.6
[2018-10-04 10:14] VITALS: BMI 21.6
--- NOTE | 2018-10-31 09:30 | BI_ITS ---
MAMMOGRAPHY - BILATERAL SCREENING REASON FOR EXAM: Female, 77 years old. Routine annual screening examination. PERTINENT HISTORY: Non-contributory. TECHNIQUE: Digital bilateral breast chilango (3D mammographic acquisition) in the CC and MLO projections. 2-D mediolateral oblique (MLO) and craniocaudad (CC) views of both breasts were obtained. CAD: Full Field Digital Mammography with Computer Added Detection was performed. COMPARISON: Comparison is made with prior study dated September 20, 2017 and September 19, 2016. FINDINGS: Breast Composition: There are scattered areas of fibroglandular density. There are no dominant masses or suspicious calcifications. A loop recorder device is seen overlying the posterior the medial aspect of the left breast. No other significant abnormalities are identified. There has been no significant change since the prior study. BI/SCREENING MAMM (CAD), BILAT IMPRESSION: Stable bilateral screening mammogram. Yearly follow-up mammogram recommended. (A) ASSESSMENT CATEGORY: BIRADS Category 2: Benign. A letter regarding these results will be sent to the patient by the facility within 30 days. Approximately 10% of breast cancers are not detected by mammography. A normal mammogram should not delay biopsy of a clinically suspicious abnormality. [id number] Electronically Signed: Constantino Sparks, at 13:18 EDT , Service support ,
--- NOTE | 2018-10-31 09:30 | US_ITS ---
STUDY: ABDOMINAL ULTRASOUND - RIGHT UPPER QUADRANT REASON FOR VISIT: Female, 77 years old. Fatty liver TECHNIQUE: Ultrasound evaluation of the right upper quadrant was performed with real-time and static tolliver-scale imaging. TECHNICAL QUALITY: Adequate. COMPARISON: None. FINDINGS: Liver: The liver measures 14.1 cm. There is fatty echogenicity of the liver. The bile ducts are within normal limits. There is hepatic color flow. The direction of portal flow is hepatopetal. There is no demonstrated mass lesion. Gallbladder: Normal distended gallbladder. The gallbladder wall measures 2 mm. There is a negative sonographic Sherman's sign. There is no pericholecystic fluid. There are no gallstones. Common Bile Duct (C.B.D.): The common bile duct measures 2.4 mm. Pancreas: Normal size of the head, body and tail of the pancreas. There is normal echogenicity of the pancreas. There is no demonstrated pancreatic mass or cyst. Right Kidney: Normal size of the right kidney. The right kidney measures 11.2 x 6.7 x 4.4 cm. Normal renal cortex. The right cortex measures 1.4 cm. There is no demonstrated renal mass or cyst. There is no right hydronephrosis. US/Liver IMPRESSION: Fatty liver. Electronically Signed: Alfredo Fischer DO at 23:01 EDT Tel [phone], Service support ,
--- NOTE | 2018-10-31 10:19 | BD_ITS ---
STUDY: DUAL ENERGY X-RAY ABSORPTIOMETRY / DXA REASON FOR EXAM: Female, 77 years old. The patient is postmenopausal. No loss of height. TECHNIQUE: Bone Mineral Density (BMD) measurements of lumbar spine and bilateral hips were obtained. COMPARISON: Comparison is made with prior study dated September 19, 2016. FINDINGS: Lumbar Spine (L1-L4): g/cm2 (0.994) / T-score (-1.5) / Z-score (0.3) Findings are suggestive of osteopenia with a low fracture risk. Left Femur Total: g/cm2 (0.828) / T-score (-1.4) / Z-score (0.5) Left Femoral Neck: g/cm2 (0.814) / T-score (-1.6) / Z-score (0.4) Right Femur Total: g/cm2 (0.807) / T-score (-1.6) / Z-score (0.3) Right Femoral Neck: g/cm2 (0.806) / T-score (-1.7) / Z-score (0.4) The T-Scores on the most recent prior examination were: Lumbar Spine (L1-L4): There has been worsening of bone density since the previous examination. Left Femur Total: which represents a worsening of 4.7%. Right Femur Total: which represents a worsening of 5.9%. BD/Dexa Bone Density Study IMPRESSION: The patient is considered osteopenic as outlined below according to World Marlon Organization (WHO) criteria with a moderate fracture risk. There has been worsening of bone density since the previous examination. Reference Information: The T-score is the number of standard deviations above or below the standard which is normal for young adults at their peak bone mineral density. The World Health Organization (WHO) interprets the T-scores as follows: Above -1 Normal bone density Between -1 and -2.5 Osteopenia Equal to / or below -2.5 Osteoporosis As a practical clinical guideline, osteopenia may be graded as follows: Mild -1 through -1.5 Moderate -1.6 through -2.0 Severe -2.1 through -2.4 The Z-score is the number of standard deviations above or below age-matched controls. A Z-score of less than -1.5 would be considered abnormal. References: 1. NIH Osteoporosis and Related Bone Diseases http://www.osteo.org 2. International Society for Clinical Densitometry http://www.iscd.org 3. National Osteoporosis Foundation http://www.nof.org Electronically Signed: Constantino Sparks, at 11:32 EDT , Service support ,
== END ==
PROVIDERS: Family Provider Internal Medicine; PCP Internal Medicine; Referring Provider Internal Medicine; Visit Provider Internal Medicine
DX: K76.0 Fatty (change of) liver, not elsewhere classified (principal); Z12.31 Encounter for screening mammogram for malignant neoplasm of breast; Z78.0 Asymptomatic menopausal state
CPT/HCPCS: 76705; 77063; 77067; 77080

== ENCOUNTER → 2018-12-16 | Outpatient (CLI) | payer MEDICARE, SELFPAY ==
[2018-11-01 09:11] VITALS: BMI 21.2
--- NOTE | 2018-12-16 11:00 | RAD_ITS ---
HISTORY: LOW BACK PAIN EXAM/TECHNIQUE: XR Spine Lumbar Min 4 Views: COMPARISON: CT abdomen pelvis 01/17/16. FINDINGS: # of images incl. paperwork: 5 No fracture or dislocation or osseous destruction. Mild left scoliosis centered at L3. Grade 1 degenerative anterolisthesis L4 on L5. Prominent disc and facet degeneration L4-5. No acute findings in the soft tissues. RAD/L/S Spine Min 4 Views IMPRESSION: No acute findings. Prominent disc and facet degeneration L4-5 with grade 1 anterolisthesis at this level. at 2258 Reported and signed by: Alpesh Rogers MD Electronically Signed: Alpesh Rogers, at 22:57 EDT Tel , Service support ,
== END | disposition home or self-care (01) ==
PROVIDERS: Family Provider Internal Medicine; PCP Internal Medicine; Referring Provider Internal Medicine; Visit Provider Internal Medicine
DX: M54.5 Low back pain (principal)
CPT/HCPCS: 72110

== ENCOUNTER → 2020-01-27 16:40 | Outpatient (CLI) | payer MEDICARE, SELFPAY ==
[2019-07-14 13:48] VITALS: BMI 21.5
[2020-01-15 11:12] VITALS: BMI 20.9
--- NOTE | 2020-01-27 16:44 | BI_ITS ---
MAMMOGRAPHY - BILATERAL SCREENING REASON FOR EXAM: Female, 79 years old. Routine annual screening examination. PERTINENT HISTORY: Non-contributory. TECHNIQUE: Digital bilateral breast brian (3D mammographic acquisition) in the CC and MLO projections. 2-D mediolateral oblique (MLO) and craniocaudad (CC) views of both breasts were obtained. CAD: Full Field Digital Mammography with Computer Added Detection was performed. COMPARISON: Comparison is made with prior examination dated October 31, 2018 and September 20, 2017. FINDINGS: Breast Composition: There are scattered areas of fibroglandular density. There are no dominant masses or suspicious calcifications. A loop recording device is once again seen overlying the deep medial aspect of the left breast. No other significant abnormalities are identified. There has been no significant change since the prior study. BI/SCREEN MAMM (CAD) W/BRIAN BILAT IMPRESSION: Stable bilateral screening mammogram. Yearly follow-up mammogram recommended. (A) ASSESSMENT CATEGORY: BIRADS Category 2: Benign. A letter regarding these results will be sent to the patient by the facility within 30 days. Approximately 10% of breast cancers are not detected by mammography. A normal mammogram should not delay biopsy of a clinically suspicious abnormality. [id number] Electronically Signed: Constantino Sparks, at 8:08 EDT , Service support ,
== END ==
PROVIDERS: PCP Internal Medicine; Referring Provider Internal Medicine; Visit Provider Internal Medicine
DX: Z12.31 Encounter for screening mammogram for malignant neoplasm of breast (principal)
CPT/HCPCS: 77063; 77067

== ENCOUNTER → 2020-02-27 08:54 | Outpatient (CLI) | payer MEDICARE, SELFPAY ==
[2020-01-15 11:12] VITALS: BMI 20.9
--- NOTE | 2020-02-27 09:04 | US_ITS ---
STUDY: ABDOMINAL ULTRASOUND - RIGHT UPPER QUADRANT REASON FOR VISIT: Female, 79 years old FATTY LIVER TECHNIQUE: Ultrasound evaluation of the right upper quadrant was performed with real-time and static tolliver-scale imaging. TECHNICAL QUALITY: Adequate. COMPARISON: Comparison is made with prior examination dated 10/31/2018. FINDINGS: Liver: The liver measures 13.2 cm. There is increased echogenicity consistent with fatty infiltration. The bile ducts are within normal limits. There is hepatic color flow. The direction of portal flow is hepatopetal. There is no demonstrated mass lesion. Gallbladder: Normal distended gallbladder. The gallbladder wall measures 3.0 mm. There is a negative sonographic Sherman''s sign. There is no pericholecystic fluid. There are no gallstones. Common Bile Duct (C.B.D.): The common bile duct measures 3.0 mm. Pancreas: Normal size of the head, body and tail of the pancreas. There is normal echogenicity of the pancreas. There is no demonstrated pancreatic mass or cyst. Right Kidney: Normal size of the right kidney. The right kidney measures 11.1 cm x 4.1 cm x 3.6 cm. Normal renal cortex. The right cortex measures 1.1 cm. There is no demonstrated renal mass or cyst. There is no right hydronephrosis. US/Liver IMPRESSION: Fatty infiltration of the liver. Electronically Signed: Constantino Sparks, at 12:50 EDT , Service support ,
--- NOTE | 2020-02-27 09:38 | ECHOD_ITS ---
Reason For Study: ABN EKG Procedure This was a 2D Doppler, Color Flow transthoracic echocardiogram. Exam performed in department. Left Ventricle Normal LV size. The estimated ejection fraction is 65 %. No evidence for diastolic dysfunction. No regional wall motion abnormalities noted. Right Ventricle Normal RV size. Normal systolic function. Atria Normal left atrium. Normal right atrium. No doppler evidence for ASD. Mitral Valve No significant mitral valve stenosis. Mild-Moderate (1-2+) mitral valve insufficiency. Tricuspid Valve There is no tricuspid stenosis. Trivial tricuspid valve insufficiency. Pulmonary artery systolic pressure is 30 mmHg. Aortic Valve Trisinus/trileaflet aortic valve. Aortic sclerosis, no stenosis. There is no aortic stenosis. No aortic valve insufficiency. Pulmonic Valve There is no pulmonic valvular stenosis. No pulmonic valve insufficiency. Great Vessels Normal aortic root. Pericardium/Pleural No pericardial effusion. MMode/2D Measurements & Calculations LVIDd: 3.3 cm IVSd: 1.0 cm Ao root diam: 2.7 cm LVIDs: 2.3 cm LVPWd: 0.86 cm RVDd: 2.8 cm FS: 32.5 % LAV(MOD-bp): 30.6 ml LA A4 area: 11.4 cm2 LA dimension(2D): 2.7 cm LAV(MOD-bp) Indexed: 19.4 ml/m2 LAV(MOD-sp2): 30.6 ml LAV(MOD-sp4): 29.7 ml RA A4 area: 10.5 cm2 Time Measurements MV dec time: 0.26 sec Doppler Measurements & Calculations MV E max kin: 53.1 cm/sec Lat Peak E' Kin: 7.2 cm/sec Med Peak E' Kin: 5.3 cm/sec MV A max kin: 81.8 cm/sec E/E' lat: 7.4 E/E' med: 10.0 MV E/A: 0.65 Ao V2 max: 112.5 cm/sec LV V1 max: 78.4 cm/sec PA V2 max: 77.1 cm/sec Ao max P.1 mmHg LV V1 max P.5 mmHg TR max kin: 227.2 cm/sec TR max P.7 mmHg Interpretation Summary The estimated ejection fraction is 65 %. No evidence for diastolic dysfunction. Mild-Moderate (1-2+) mitral valve insufficiency. Trivial tricuspid valve insufficiency. Pulmonary artery systolic pressure is 30 mmHg. Ordering Physician: Aparna William Referring Physician: Aparna William Performed By: Thalia Vargas, NIGEL, RVT
== END ==
PROVIDERS: PCP Internal Medicine; Referring Provider Internal Medicine; Visit Provider Internal Medicine
DX: K76.0 Fatty (change of) liver, not elsewhere classified (principal); R94.31 Abnormal electrocardiogram [ECG] [EKG]
CPT/HCPCS: 76705; 93306

== ENCOUNTER → 2021-01-17 12:39 | Outpatient (CLI) | payer MEDICARE, SELFPAY ==
[2021-01-17 11:18] VITALS: BMI 20.6
--- NOTE | 2021-01-17 12:45 | RAD_ITS ---
INDICATION: Preop EXAMINATION/TECHNIQUE: X-RAY - XR Chest 2 Views COMPARISON: 12/31/2017. FINDINGS: The lungs are clear. Tortuous and calcified thoracic aorta. The heart is not enlarged. No pleural effusion or pneumothorax. Degenerative changes of the thoracic spine. RAD/Chest PA and Lateral IMPRESSION: No acute radiographic abnormalities. Electronically Signed: Chalino Piper MD at 23:05 EDT Tel , Service support ,
[2021-01-17 13:04] LABS: Bacteria 0 SEEN /hpf (None Seen); Mucous, Urine 0 SEEN /hpf (<or=2+); Red Blood Cells-Urine 0 SEEN /hpf (0-5); Squamous Epithelial Cells - UA 0 SEEN /hpf (5-10)
[2021-01-17 13:36] LABS: Color, Urine Yellow (Yellow); Glucose, Dipstick Normal (Normal); Ketone-Dipstick Negative (Negative); Leukocyte Esterase-Dipstick 25 /ul (Negative); Nitrite-Dipstick Negative (Negative); Occult Blood-Urine Negative /ul (Negative); Protein-Dipstick Negative (Negative); Urine Bilirubin Dipstick Negative (Negative); Urine Clarity Sl. Cloudy (Clear); Urine Urobilinogen Normal (Normal)
[2021-01-17 13:40] LABS: Hematocrit 46.6 % (37-47); Hemoglobin 15.2 g/dL (12.0-15.0); Mean Corp Hgb Conc 32.6 g/dL (32-36); Mean Corpuscular Volume 95.1 fL (81-99); Mean Platelet Vol. 10.2 fl (6.2-12.0); Platelet Count 211 K/mm3 (150-450); RBC Distribution Width SD 42.4 fl (35.1-43.9); White Blood Count 4.7 K/mm3 (4.4-11.0)
[2021-01-17 13:43] LABS: White Blood Cells 0-5 SEEN /hpf (0-5)
[2021-01-17 13:47] LABS: Prothrombin Time (Protime)PT. 12.2 SECONDS (11.7-14.9)
[2021-01-17 14:01] LABS: Anion Gap 7 (5-15); BUN 20 mg/dL (7-18); BUN/Creat Ratio 26.4 RATIO (10-20); Calcium,Total 8.9 mg/dL (8.5-10.1); Chloride 105 mmol/L (98-107); Creatinine, Serum 0.76 mg/dL (0.55-1.02); EST Glomerular Filtration Rate 78 mL/min (>60); Est Glom Filt Rate - Afr Amer 95 mL/min (>60); Glucose 84 mg/dL (74-106); Potassium 4.1 mmol/L (3.5-5.1); Sodium Level 143 mmol/L (136-145)
== END ==
PROVIDERS: PCP Internal Medicine; Referring Provider Internal Medicine Cardiovascular Disease; Visit Provider Internal Medicine Cardiovascular Disease
DX: I49.5 Sick sinus syndrome (principal); R55 Syncope and collapse; R00.2 Palpitations; Z95.818 Presence of other cardiac implants and grafts; I10 Essential (primary) hypertension
CPT/HCPCS: 36415; 71046; 80048; 81001; 85027; 85610

== ENCOUNTER 2021-01-24 10:56 | Day surgery (SDC) | payer MEDICARE, SELFPAY ==
[2021-01-17 11:18] VITALS: BMI 20.6
[2021-01-21 08:57] VITALS: BMI 20.5
[2021-01-24] VITALS (11 sets, daily range): BP systolic 108–149; BP diastolic 59–76; PULSE 64–96; RESP 12–18; TEMP 36.2–36.6; O2SAT 94–97
--- NOTE | 2021-01-24 13:44 | CL.IE_ITS ---
Patient: JACI BEE Study Date: 01/24/2021 Performing: Bari Mosley MD : 1940 Age: 80 Gender: female PROCEDURES PERFORMED [id number] PACER INSERT+DUAL LEADS INDICATIONS Sinoatrial node dysfunction/Sick sinus syndrome Syncope PROCEDURE DETAILS The patient was brought to the Catheterization Lab in the postabsorptive nonsedated state. Infor med consent was obtained prior to the procedure. Local anesthetic was given subcutaneously to the le ft upper chest area with Lidocaine 2%. Incision was made to the left upper chest. Access was achieved and a guidewire was advanced into the left subclavian vein. Incision was made to the left upper ches t. PPM ventricular lead was inserted / positioned to right ventricular apex. PPM ventricular lead yamini ting performed. PPM ventricular lead testing performed. PPM atrial lead was inserted / positioned to the right atrial appendage. PPM atrial lead testing performed. The Ventricular PM lead sutured in matilde ce with 2-0 Silk. The Atrial lead sutured in place with 2-0 Silk. PPM generator was attached to the l ead(s) and inserted into the pocket. Device pocket was irrigated with antibiotic Ancef. PPM generator was then interrogated by the statistical programmer analyst. Subcutaneous closure was completed with 3-0 Vicryl. Skin closure was completed with 4-0 Vicryl. Steri-strips applied to Lt chest area. The patie nt tolerated the procedure well. Estimated Blood Loss: < 10 mls IMPLANTED / EX-PLANTED DEVICES IMPLANTED DEVICE(S): PPM Ventricular lead - Project Builder: [email or web address], Model # Ingevity 52cm 7841 , Serial # [id number] PPM Atrial lead - Project Builder: [email or web address], Model # Ingevity 45cm 7840 , Serial # [id number] PPM Generator - Project Builder: [email or web address], Model # Essent[address] MRI DR L111 , Serial # [id number] DEVICE PARAMETERS ATRIAL LEAD PARAMETERS: P wave- 6.0 (mV) Current- 0.9 (mA) threshold- 0.5 (V) impedence- 591 (OHMS) VENTRICULAR LEAD PARAMETERS: R wave- 15.2 (mV) Current- 0.5 (mA) threshold- 0.5 (V) impedence- 1056 (OHMS) DEVICE PARAMETERS: Mode- DDD Lower rate- 60 Upper rate- 120 CONCLUSIONS / RECOMMENDATIONS Device Conclusions: Successful implantation of a dual chamber pacemaker Device Recommendations: Follow up with Primary Care Physician PROCEDURE MEDICATIONS Fentanyl 50 mcg IV Versed 1 mg IV Oxygen: 2 L/min via nasal cannula Antibiotic given in appropriate timeframe. Ancef 1 Gm IV @ 01/24/2021 12:28:31 Signed By Bari Mosley MD On 01/24/2021 13:44:24 Bari Mosley MD
[2021-01-24] MEDS: Losartan Potassium 50 MG Tablet PO (21:24)
--- NOTE | 2021-01-25 01:27 | NURSING ---
pt called out stating she tried to urinate, but was unable too, feels like she is retaining again. Bladder scan for 800, straight cath for 750. Margaux, RN
[2021-01-25 02:58] VITALS: PULSE 68
[2021-01-25 03:20] VITALS: BP 129/65; PULSE 62; RESP 14; TEMP 36.6; O2SAT 98
--- NOTE | 2021-01-25 05:55 | RAD_ITS ---
STUDY: X-RAY CHEST REASON FOR EXAM: Female, 80 years old. Post permanent ICD/pacemaker placement. TECHNIQUE: PA and lateral chest in inspiration and expiration. January 17, 2021. COMPARISON: 01/17/2021 FINDINGS: Cardiac pacemaker overlies left hemithorax with leads overlying the right atrium and right ventricle. No focal infiltrates or effusions. No pneumothorax. Normal size heart. Normal mediastinum and johnna. Normal visualized pulmonary arteries. Normal visualized aortic arch and descending thoracic aorta. Normal visualized thoracic spine. Normal visualized ribs, clavicles, and shoulders. There is no demonstrated abnormality of the visualized soft tissue structures of the upper abdomen. RAD/Chest 3 View IMPRESSION: No acute cardiopulmonary disease. No pneumothorax. Placement of cardiac pacemaker. Electronically Signed: Juan Antonio Cheatham MD at 6:32 EDT , Service support ,
--- NOTE | 2021-01-25 06:37 | PCM.PN.CARD ---
Subjective Subjective Patient seen and evaluated. Appears to be doing well. Objective Data Vital Signs: Vital Signs Temp Pulse Resp BP Pulse Ox 97.9 F 62 14 129/65 H 98 01/25/21 03:20 01/25/21 03:20 01/25/21 03:20 01/25/21 03:20 01/25/21 03:20 Oxygen Delivery Method Room Air Weight: 120 lb Body Mass Index (BMI) 20.5 Intake & Output: Intake and Output for Last 24 Hours 01/23/21 01/24/21 01/25/21 23:59 23:59 23:59 Intake Total 500 / 500 Output Total 1400 / 1400 Balance -900 / -900 Cardiology Labs/Tests Rhythm: EKG: ECHO: Stress Test: Cardiac Cath: PCI: CT Surgery: Holter monitor: EPS: PPM: CXR: Chest CT Scan: Radiography Diagnostic Testing: Radiology Impression Chest X-Ray 01/25/21 05:55 IMPRESSION: No acute cardiopulmonary disease. No pneumothorax. Placement of cardiac pacemaker. Electronically Signed: Juan Antonio Cheatham MD at 6:32 EDT , Service support , Physical Exam Const oriented x3 and healthy appearing Orientation / Consciousness: awake HEENT normocephalic Eyes PERRL and conjunctivae normal Neck supple, no JVD and no carotid bruits Chest inspection of chest normal Resp normal respiratory effort and clear to auscultation bilaterally Cardio Palpation: normal PMI Rate: regular rate Rhythm: regular rhythm Heart Sounds: S1 normal and S2 normal Peripheral Pulses: pulses 2+ throughout GI normal to inspection, nondistended, normoactive bowel sounds Extremity normal to inspection and no clubbing, cyanosis or edema Psych mental status grossly normal Assessment & Plan Assessment/Plan (1) Presence of permanent cardiac pacemaker: PLAN: Patient underwent placement of a permanent pacemaker yesterday. Chest x-ray demonstrates no evidence of pneumothorax. Pacemaker will be checked later this morning. If no issues noted will be discharged for outpatient follow-up in our pacer clinic.
[2021-01-25 06:59] VITALS: PULSE 77
--- NOTE | 2021-01-25 08:28 | PCM.DC ---
Discharge Instructions Diet Discharge Diet: No restrictions (as you feel able. No excessive stretching. No lifting your arm over your head (keep elbow below shoulder level) until seen for your pacemaker check. Do not lift your elbow away from your side until you are seen for your first visit. Keep the arm sling on if it helps remind you not to lift your arm.) Activity Lifting Restrictions: Do not lift with the left arm more than 5 pounds Additional Activity Instructions:: May shower or bathe on [day 3]. Do not scrub the incision or soak in the tub. Just wash with soap and let the water run over the incision. Gently pat dry with towel. Medications: Take your pain medication as directed. Refer to your discharge instruction sheet for a list of medications you are to take. Dressing / Incision Call your doctor if your incision/area has: Continuous Slow Oozing, Sudden Increased Bleeding, Increased Pain/ Swelling, Increased Redness, Foul Smelling Discharge and Swelling at the incision site Call your doctor if you observe: Fever of 101 or Higher, Shortness of breath, Dizziness, Fainting spells, Swelling in the ankles, Chest pain, Prolonged hiccupping and Increased palpitations (irregular heartbeat) Remove Dressing in: 3 days Additional Dressing/Incision Instructions:: When dressing is removed, wash and dry incision. Keep covered with a light bandage if it is rubbing against your clothing. Do not cover the incision with an airtight bandage. Change the bandage daily. Do not remove steri strips. The strips will fall off on their own. Follow Up Care Please Follow Up With: Bari Mosley MD When: Call [phone] for follow up. Follow-up with the [facility] on February 01 at 1:30pm Test Results: Test results from this visit will be discussed in further detail at your follow-up appointment, if applicable. Discharge Plan Admission Attending Provider: Bari Mosley Primary Care Provider: Aparna William Discharge Orders/Prescriptions Prescriptions: Continued Adult 50 Plus Probiotic 4 billion cell capsule 4,000 mmu cells PO DAILY RF: 0 coenzyme Q10 [Co Q-10] 100 mg capsule 100 mg PO DAILY RF: 0 aspirin 325 mg tablet 325 mg PO DAILY RF: 0 cholecalciferol (vitamin D3) 25 mcg (1,000 unit) tablet 1,000 unit PO DAILY RF: 0 sumatriptan succinate [Imitrex] 25 mg tablet 25 mg PO DAILY PRN (Reason: migraine headache) RF: 0 Pepto-Bismol 262 mg tablet 2 tab PO Q30-60M PRN (Reason: upset stomach) RF: 0 ezetimibe [Zetia] 10 mg tablet 10 mg PO DAILY RF: 0 omeprazole 20 mg capsule,delayed release(DR/EC) 20 mg PO DAILY RF: 0 losartan 50 mg tablet 50 mg PO BID RF: 0 omega-3 fatty acids-fish oil 1 EACH capsule,delayed release(DR/EC) 1 ea PO QODAY RF: 0 vitamin E 400 unit capsule 800 unit PO DAILY RF: 0 carvedilol 3.125 mg tablet 3.125 mg PO BID Qty: 60 RF: 11 Referrals / Follow Up: Stewart,DO Aparna [Primary Care Provider] - Disposition Disposition (needs filled in before D/C Order can be placed): Home, Self Care
[2021-01-25 08:48] VITALS: BP 114/61; PULSE 84; RESP 16; TEMP 36.8; O2SAT 96
--- NOTE | 2021-01-25 09:43 | PHA.DC.MR ---
Pharmacy Service has performed discharge medication reconciliation for this patient. The patient's discharge medication list was reviewed for discrepancies and discrepancies were resolved. Home Medications omega-3 fatty acids-fish oil 1 ea PO QODAY 01/17/16 aspirin 325 mg tablet 325 mg PO DAILY 05/15/18 coenzyme Q10 100 mg capsule 100 mg PO DAILY 05/16/18 lactobacillus combination no.9 4 billion cell capsule 4,000 mmu cells PO DAILY 05/16/18 vitamin E 400 unit capsule 800 unit PO DAILY cap 11/01/18 bismuth subsalicylate 262 mg tablet 2 tab PO Q30-60M PRN 07/14/19 cholecalciferol (vitamin D3) 25 mcg (1,000 unit) tablet 1,000 unit PO DAILY tab 07/14/19 sumatriptan succinate 25 mg tablet 25 mg PO DAILY PRN tab 07/14/19 carvedilol 3.125 mg tablet 3.125 mg PO BID #60 tab 08/19/20 ezetimibe 10 mg tablet 10 mg PO DAILY 01/17/21 losartan 50 mg tablet 50 mg PO BID 01/17/21 omeprazole 20 mg capsule,delayed release 20 mg PO DAILY 01/17/21
== END 2021-01-25 08:27 | disposition home or self-care (01) ==
LOC: CLSP 10:56 → PCU 01-25 08:27
PROVIDERS: PCP Internal Medicine; Referring Provider Internal Medicine Cardiovascular Disease; Visit Provider Internal Medicine Cardiovascular Disease
DX: I49.5 Sick sinus syndrome (principal); I11.9 Hypertensive heart disease without heart failure; I49.3 Ventricular premature depolarization; K21.9 Gastro-esophageal reflux disease without esophagitis; E78.5 Hyperlipidemia, unspecified; Z95.818 Presence of other cardiac implants and grafts; Z79.82 Long term (current) use of aspirin; Z79.899 Other long term (current) drug therapy
CPT/HCPCS: 33208; 71047; 99152; 99153; J7040; J7050; C1894

== ENCOUNTER → 2021-03-01 14:12 | Outpatient (CLI) | payer MEDICARE, SELFPAY ==
[2021-01-21 08:57] VITALS: BMI 20.5
[2021-03-01 17:49] LABS: BUN 22 mg/dL (7-18); Creatinine, Serum 0.78 mg/dL (0.55-1.02); Glucose 93 mg/dL (74-106)
[2021-03-01 17:50] LABS: Anion Gap 5 (5-15); BUN/Creat Ratio 28.4 RATIO (10-20); Calcium,Total 8.6 mg/dL (8.5-10.1); Chloride 107 mmol/L (98-107); EST Glomerular Filtration Rate 76 mL/min (>60); Est Glom Filt Rate - Afr Amer 92 mL/min (>60); Potassium 3.9 mmol/L (3.5-5.1); Sodium Level 142 mmol/L (136-145)
== END ==
PROVIDERS: PCP Internal Medicine; Referring Provider Internal Medicine Cardiovascular Disease; Visit Provider Internal Medicine Cardiovascular Disease
DX: I45.5 Other specified heart block (principal); I49.5 Sick sinus syndrome; R55 Syncope and collapse; Z95.0 Presence of cardiac pacemaker; Z95.818 Presence of other cardiac implants and grafts
CPT/HCPCS: 36415; 80048

== ENCOUNTER 2021-03-15 06:35 | Day surgery (SDC) | payer MEDICARE, SELFPAY ==
[2021-01-21 08:57] VITALS: BMI 20.5
[2021-03-14 11:12] VITALS: BMI 20.5
--- NOTE | 2021-03-14 13:15 | HP.PCM_ITS ---
History and Physical Date of Admission: 03/15/21 This is an 80-year-old white female who presents today to have her loop recorder removed. 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 She also has a hx of HTN, HL. She is undergone evaluation with an ILR. Based upon her interpretation July of this year she had findings of bradycardia and pauses including a 4-second pause. At that time her ixxa-aezmtkr-glutkxbeyc-was placed on hold. She was noted to have tacky dysrhythmias. She was then placed on low-dose carvedilol therapy. Her most recent ILR interrogation suggest that she still has tacky episodes. She states she has episodes where she still feels dizzy and lightheaded. There was concern of rell dysrhythmia/pauses as well as potentially her tacky dysrhythmias. She underwent a PPM implant on 01/24/2021. Allergies codeine Allergy (Verified 01/17/21 11:21) Other nabumetone Adverse Reaction (Unknown, Verified 01/17/21 11:21) Unknown Medications omega-3 fatty acids-fish oil 1 ea PO QODAY 01/17/16 [History Confirmed 01/17/21] aspirin 325 mg tablet 325 mg PO DAILY 05/15/18 [History Confirmed 01/17/21] coenzyme Q10 100 mg capsule 100 mg PO DAILY 05/16/18 [History Confirmed 01/17/21] lactobacillus combination no.9 4 billion cell capsule 4,000 mmu cells PO DAILY 05/16/18 [History Confirmed 01/17/21] vitamin E 400 unit capsule 800 unit PO DAILY cap 11/01/18 [History Confirmed 01/17/21] bismuth subsalicylate 262 mg tablet 2 tab PO Q30-60M PRN 07/14/19 [History Confirmed 01/17/21] cholecalciferol (vitamin D3) 25 mcg (1,000 unit) tablet 1,000 unit PO DAILY tab 07/14/19 [History Confirmed 01/17/21] sumatriptan succinate 25 mg tablet 25 mg PO DAILY PRN tab 07/14/19 [History Confirmed 01/17/21] carvedilol 3.125 mg tablet 3.125 mg PO BID #60 tab 08/19/20 [Rx Confirmed 01/17/21] ezetimibe 10 mg tablet 10 mg PO DAILY 01/17/21 [History Confirmed 01/17/21] losartan 50 mg tablet 50 mg PO BID 01/17/21 [History Confirmed 01/17/21] omeprazole 20 mg capsule,delayed release 20 mg PO DAILY 01/17/21 [History Confir med 01/17/21] PFSH Medical History Diastolic dysfunction Essential hypertension GERD (gastroesophageal reflux disease) Hyperlipemia Palpitations Premature ventricular contraction Status post placement of implantable loop recorder Syncope and collapse Tachy-rell syndrome Surgical History History of carpal tunnel surgery History of cataract surgery History of tonsillectomy Status post trigger finger release Family History Father Myocardial infarction Sister CAD (coronary artery disease) History of coronary artery bypass surgery Mother Myocardial infarction Social History Smoking Status: Never smoker alcohol intake: never substance use type: does not use caffeine: No ROS Const Const: Positive for fatigue ( tires quicker); Negative for weakness, headache(s), frequent falls, excessive sweating, weight gain or weight loss Eyes Eyes: Negative for transient loss of vision, blurry vision, change in vision or double vision ENT ENT: Positive for balance problems (slight); Negative for headache(s) or dizziness Cardio Chest Pain: Yes (continues intermittent) Character: other (nagging ache) Onset: at rest and exercise Location: left chest Duration: minutes Relieving: rest Palpitations: Yes (occasional) feels like its: fast Edema: None Muscle aches with walking: None Resp Respiratory: Positive for SOB with activity (slight); Negative for SOB at rest GI GI: Negative vomiting or vomiting blood/hematemesis : Negative for hematuria Musc Musc: Positive for balance problems (slight); Negative for muscle aches/ myalgia, muscle weakness or joint pain Skin Skin: Negative non-healing lesions or rash Neuro Neuro: Positive for lightheadedness (occasional sitting to standing) and syncope (x1 episode in July); Negative for dizziness, near syncope, orthostatic symptoms, frequent falls, headache(s), weakness, confusion, memory loss, restless legs, blurry vision, double vision, vertigo, seizures, lack of coordination or other [place] Hematologic/Lymphatic: Negative for easy bleeding Endo Endo: Positive for fatigue ( tires quicker); Negative for excessive sweating Psych Psych: Negative for anxiety or depression Allergy Allergy/Immunology: Negative for hives and Negative for rash Cardiology Exam Const Appearance: cooperative, healthy appearing, comfortable, no acute distress, well developed and well groomed Nutritional Appearance: average body habitus Orientation: alert, awake and oriented x3 Head Head: normal to inspection, normocephalic and atraumatic Ears: hearing grossly normal bilaterally Nose: external nose normal Face and Sinus: face symmetric Eyes Eyelids: eyelids normal Conjunctivae: conjunctivae normal Pupils: PERRL EOM: EOM intact bilaterally Neck Neck: normal visual inspection and full ROM Carotids: normal carotid upstroke Chest Chest inspection: normal inspection of the chest, symmetric chest movement and normal respiratory effort Auscultation: Bilateral: Clear to Auscultation Cardio Palpation: normal PMI Rate: regular rate Rhythm: regular rhythm Heart sounds: S1 normal and S2 normal GI GI: normal to inspection, soft and bowel sounds present Neuro General: patient alert, patient awake, patient oriented x3 and moves all extremities Skin Skin: no rashes or lesions noted Extremities Pulses: Normal: Right Radial Pulse and Left Radial Pulse Lower Extremity Edema: None: Bilateral Psych Psychological: normal affect Assessment & Plan Assessment/Plan (1) Tachy-rell syndrome: PLAN: Pt recently underwent a PPM implant for arrhythmias and pauses noted on her ILR. Now that she has a PPM will remover her ILR. SHe will continue to with her low dose coreg. Will continue to follow up in the office.
--- NOTE | 2021-03-15 08:16 | CL.IE_ITS ---
Patient: JACI BEE RUSTCollins Study Date: 03/15/2021 Performing: Bari Mosley MD : 1940 Age: 80 Gender: female PROCEDURES PERFORMED [id number] OF LOOP RECORDER INDICATIONS Sinoatrial node dysfunction/Sick sinus syndrome PROCEDURE DETAILS The patient was brought to the Catheterization Lab in the postabsorptive nonsedated state. Infor med consent was obtained prior to the procedure. Local anesthetic was given subcutaneously to the le ft subclavian region with Lidocaine 2%. Incision was made to the left subclavicular area. ICM Loop Re noe was removed. Skin closure was completed with 3-0 Vicryl. Steri-strips applied to left subclavi cular incision. The patient tolerated the procedure well. Estimated Blood Loss: 0 ml's IMPLANTED / EX-PLANTED DEVICES DEVICE PARAMETERS CONCLUSIONS / RECOMMENDATIONS Device Conclusions: Successfu removal of a patient activated loop recorder. Device Recommendations: Follow up with Primary Care Physician PROCEDURE MEDICATIONS Versed 1 mg IV Oxygen: 2 L/min via nasal cannula Antibiotic given in appropriate timeframe. Ancef 1 Gm IV @ 03/15/2021 07:43:01 Signed By Bari Mosley MD On 03/15/2021 08:14:50 Bari Mosley MD
== END 2021-03-15 09:10 | disposition home or self-care (01) ==
LOC: CLSP 06:37
PROVIDERS: PCP Internal Medicine; Referring Provider Internal Medicine Cardiovascular Disease; Visit Provider Internal Medicine Cardiovascular Disease
DX: Z45.09 Encounter for adjustment and management of other cardiac device (principal); I49.5 Sick sinus syndrome; I10 Essential (primary) hypertension; E78.5 Hyperlipidemia, unspecified; K21.9 Gastro-esophageal reflux disease without esophagitis; Z79.82 Long term (current) use of aspirin; Z79.899 Other long term (current) drug therapy; Z95.0 Presence of cardiac pacemaker
CPT/HCPCS: 33286; 99152; 99153; J7040

== ENCOUNTER → 2021-04-07 08:00 | Outpatient (CLI) | payer MEDICARE, SELFPAY ==
[2021-03-14 11:12] VITALS: BMI 20.5
--- NOTE | 2021-04-07 08:04 | US_ITS ---
STUDY: ABDOMINAL ULTRASOUND - RIGHT UPPER QUADRANT REASON FOR VISIT: Female, 80 years old FATTY liver TECHNIQUE: Ultrasound evaluation of the right upper quadrant was performed with real-time and static tolliver-scale imaging. TECHNICAL QUALITY: Adequate. COMPARISON: Comparison is made with prior study dated 02/27/2020. FINDINGS: Liver: The liver measures 14.7 cm. There is increased echogenicity consistent with fatty infiltration. The bile ducts are within normal limits. There is hepatic color flow. The direction of portal flow is hepatopetal. There is no demonstrated mass lesion. Gallbladder: Normal distended gallbladder. The gallbladder wall measures 2.0 mm. There is a negative sonographic Sherman''s sign. There is no pericholecystic fluid. There are no gallstones. Common Bile Duct (C.B.D.): The common bile duct measures 2.0 mm. Pancreas: Normal size of the head, body and tail of the pancreas. There is normal echogenicity of the pancreas. There is no demonstrated pancreatic mass or cyst. Right Kidney: Normal size of the right kidney. The right kidney measures 11 cm x 4.3 cm x 3.6 cm. Normal renal cortex. The right cortex measures 1.4 cm. There is no demonstrated renal mass or cyst. There is no right hydronephrosis. US/Liver IMPRESSION: Fatty infiltration of the liver. Electronically Signed: Constantino Sparks MD at 14:22 EDT , Service support ,
--- NOTE | 2021-04-07 08:05 | BI_ITS ---
MAMMOGRAPHY - BILATERAL SCREENING REASON FOR EXAM: Female, 80 years old. Routine annual screening examination. PERTINENT HISTORY: Non-contributory. TECHNIQUE: Digital bilateral breast brian (3D mammographic acquisition) in the CC and MLO projections. 2-D mediolateral oblique (MLO) and craniocaudad (CC) views of both breasts were obtained. CAD: Full Field Digital Mammography with Computer Added Detection was performed. COMPARISON: Comparison is made with prior study dated 01/27/2020 and 10/31/2018. FINDINGS: Breast Composition: There are scattered areas of fibroglandular density. There are no dominant masses or suspicious calcifications. No other significant abnormalities are identified. There has been no significant change since the prior study. BI/SCRN MAMM (CAD)W/BRIAN BILAT IMPRESSION: Stable bilateral screening mammogram. Yearly follow-up mammogram recommended. (A) ASSESSMENT CATEGORY: BIRADS Category 1: Negative. A letter regarding these results will be sent to the patient by the facility within 30 days. Approximately 10% of breast cancers are not detected by mammography. A normal mammogram should not delay biopsy of a clinically suspicious abnormality. [id number] Electronically Signed: Constantino Sparks MD at 9:26 EDT , Service support ,
--- NOTE | 2021-04-07 09:10 | BD_ITS ---
STUDY: DUAL ENERGY X-RAY ABSORPTIOMETRY / DXA REASON FOR EXAM: Female, 80 years old. Z780. Patient is postmenopausal. TECHNIQUE: Bone Mineral Density (BMD) measurements of lumbar spine and bilateral hips were obtained. COMPARISON: Comparison is made with prior study dated 10/31/2018. FINDINGS: Lumbar Spine (L1-L4): g/cm2 (0.807) / T-score (-2.2) / Z-score (0.5) Findings are suggestive of osteopenia with a high fracture risk. Left Femur Total: g/cm2 (0.685) / T-score (-2.1) / Z-score (0.0) Left Femoral Neck: g/cm2 (0.602) / T-score (-2.2) / Z-score (0.1) Right Femur Total: g/cm2 (0.730) / T-score (-1.7) / Z-score (0.3) Right Femoral Neck: g/cm2 (0.634) / T-score (-1.9) / Z-score (0.4) The T-Scores on the most recent prior examination were: Lumbar Spine (L1-L4): There has been worsening of bone density since the previous examination. Left Femur Total: which represents a worsening of 10.7%. Right Femur Total: which represents a worsening of 2.3%. BD/Dexa Bone Density Study IMPRESSION: The patient is considered osteopenic as outlined below according to World [employer] Organization (WHO) criteria with a high fracture risk. There has been worsening of bone density since the previous examination. Reference Information: The T-score is the number of standard deviations above or below the standard which is normal for young adults at their peak bone mineral density. The World Health Organization (WHO) interprets the T-scores as follows: Above -1 Normal bone density Between -1 and -2.5 Osteopenia Equal to / or below -2.5 Osteoporosis As a practical clinical guideline, osteopenia may be graded as follows: Mild -1 through -1.5 Moderate -1.6 through -2.0 Severe -2.1 through -2.4 The Z-score is the number of standard deviations above or below age-matched controls. A Z-score of less than -1.5 would be considered abnormal. References: 1. NIH Osteoporosis and Related Bone Diseases www osteo.org 2. International Society for Clinical Densitometry www iscd.org 3. National Osteoporosis Foundation www nof.org Electronically Signed: Constantino Sparks MD at 15:42 EDT , Service support ,
== END ==
PROVIDERS: PCP Internal Medicine; Referring Provider Internal Medicine; Visit Provider Internal Medicine
DX: Z12.31 Encounter for screening mammogram for malignant neoplasm of breast (principal); Z78.0 Asymptomatic menopausal state; K76.0 Fatty (change of) liver, not elsewhere classified
CPT/HCPCS: 76705; 77063; 77067; 77080

== ENCOUNTER → 2021-07-19 14:29 | Outpatient (CLI) | payer MEDICARE, SELFPAY ==
--- NOTE | 2021-07-19 14:32 | VDLE_ITS ---
Reason For Study: swelling Procedure LEFT This is a venous duplex using B-mode, color GSV is normal. flow and spectral Doppler. CFV is compressible, spontaneous, phasic, Exam performed in department. competent, and demonstrates normal The exam was diagnostic. augmentation. A preliminary report was called and/or faxed FV is compressible, spontaneous, phasic, to Dr. William. competent and demonstrates normal augmentation. POP V is compressible, spontaneous, phasic, competent and demonstrates normal augmentation. T/P Trunk is compressible. PTV is compressible. LT PerV is compressible. VL/Venous Duplex US, Unilateral Interpretation Summary Deep veins of the left lower extremity are patent and compressible segmentally. There is no evidence of left lower extremity deep vein thrombosis. Valvular competence appears intac t within the proximal deep venous system on the left . The left great saphenous vein appears patent a nd compressible segmentally. Ordering Physician: Aparna William Performed By: Dionte Macario RVT
== END ==
PROVIDERS: PCP Internal Medicine; Referring Provider Internal Medicine; Visit Provider Internal Medicine
DX: M79.89 Other specified soft tissue disorders (principal)
CPT/HCPCS: 93971

== ENCOUNTER → 2022-04-10 | Outpatient (CLI) | payer MEDICARE, SELFPAY ==
--- NOTE | 2022-04-10 08:30 | BI_ITS ---
MAMMOGRAPHY - BILATERAL SCREENING REASON FOR EXAM: Female, 81 years old. Routine annual screening examination. PERTINENT HISTORY: Non-contributory. TECHNIQUE: Digital bilateral breast chilango (3D mammographic acquisition) in the CC and MLO projections. 2-D mediolateral oblique (MLO) and craniocaudad (CC) views of both breasts were obtained. CAD: Full Field Digital Mammography with Computer Added Detection was performed. COMPARISON: Comparison is made with prior study dated 04/07/2021 and 01/20/2020. FINDINGS: Breast Composition: There are scattered areas of fibroglandular density. There are no dominant masses or suspicious calcifications. No other significant abnormalities are identified. There has been no significant change since the prior study. BI/SCREENING MAMM (CAD), BILAT IMPRESSION: Stable bilateral screening mammogram. Yearly follow-up mammogram recommended. (A) ASSESSMENT CATEGORY: BIRADS Category 1: Negative. A letter regarding these results will be sent to the patient by the facility within 30 days. Approximately 10% of breast cancers are not detected by mammography. A normal mammogram should not delay biopsy of a clinically suspicious abnormality. [id number] Electronically Signed: Constantino Sparks MD at 9:38 EDT ,
--- NOTE | 2022-04-10 08:30 | US_ITS ---
STUDY: ABDOMINAL ULTRASOUND - RIGHT UPPER QUADRANT REASON FOR VISIT: Female, 81 years old FATTY LIVER TECHNIQUE: Ultrasound evaluation of the right upper quadrant was performed with real-time and static tolliver-scale imaging. TECHNICAL QUALITY: Adequate. COMPARISON: Comparison is made with prior study 04/07/2021. FINDINGS: Liver: The liver measures 9.8 cm. There is mild increased echogenicity consistent with mild degree of fatty infiltration. The bile ducts are within normal limits. There is hepatic color flow. The direction of portal flow is hepatopetal. There is no demonstrated mass lesion. Gallbladder: Normal distended gallbladder. The gallbladder wall measures 1.2 mm. There is a negative sonographic Sherman''s sign. There is no pericholecystic fluid. There are no gallstones. Common Bile Duct (C.B.D.): The common bile duct measures 2.4 mm. Pancreas: Normal size of the head, body and tail of the pancreas. There is normal echogenicity of the pancreas. There is no demonstrated pancreatic mass or cyst. Right Kidney: Normal size of the right kidney. The right kidney measures 9.5 cm x 4.9 cm x 4.5 cm. Normal renal cortex. The right cortex measures 1.6 cm. There is no demonstrated renal mass or cyst. There is no right hydronephrosis. US/Abdomen Limited IMPRESSION: Mild degree of fatty infiltration of the liver. Electronically Signed: Constantino Sparks MD at 15:16 EDT ,
== END | disposition home or self-care (01) ==
PROVIDERS: PCP Internal Medicine; Visit Provider Internal Medicine
DX: Z12.31 Encounter for screening mammogram for malignant neoplasm of breast (principal); K76.0 Fatty (change of) liver, not elsewhere classified
CPT/HCPCS: 76705; 77067

== ENCOUNTER 2022-06-27 12:50 | Outpatient (CLI) | payer MEDICARE, SELFPAY ==
--- NOTE | 2022-06-27 12:51 | ART_ITS ---
Reason For Study: Abnormal JADE on blood flow sreening Procedure A bilateral lower extremity continuous wave Doppler with analog waveform analysis and ankle brachial indexes. Left Segmental Pressures Left brachial= 157mmHg. Left posterior tibial artery = 174mmHg. Left dorsalis pedis artery = 161mmHg. The left dorsalis pedis waveforms are triphasic. The left posterior tibial artery waveforms are triphasic. Right Segmental Pressures Right brachial= 152mmHg. Right posterior tibial artery = 162mmHg. Right dorsalis pedis artery = 147mmHg. The right dorsalis pedis waveforms are triphasic. The right posterior tibial artery waveforms are triphasic. Indices The right ankle brachial index by the dorsalis pedis is 0.94. The right ankle brachial index by the posterior tibial artery is 1.03. The left ankle brachial index by the dorsalis pedis is 1.03. The left ankle brachial index by the posterior tibial artery is 1.11. VL/Ankle Brachial Index Interpretation Summary Right posterior tibial and dorsalis pedis ankle-brachial indices at rest are 1. 03 and 0.94 with triphasic Doppler waveforms which is normal for the posterior tibialis and bord sunday for the dorsalis pedis. The left posterior tibialis and dorsalis pedis ankle-brachial indices at rest a re 1.11 and 1.03 respectively with triphasic Doppler waveforms which is normal Bilateral digital PPG waveforms are mildly depressed suggesting possible distal small vessel disease or temperature affect. Ordering Physician: Aparna William Referring Physician: Aparna William D.O. Performed By: Anitra Saldivar RVT
--- NOTE | 2022-06-27 12:51 | CDU_ITS ---
Reason For Study: Abnormal carotid doppler on blood flow screening Rt. Velocities/BP Lt. Velocities/BP Prox CCA 65.5/11.6 cm/sec. Prox CCA 74.9/14.5 cm/sec. Mid CCA 62.6/12.6 cm/sec. Mid CCA 72.1/17.3 cm/sec. Dist CCA 57.9/10.7 cm/sec. Dist CCA 64.5/13.5 cm/sec. Prox ICA 55.1/15.4 cm/sec. Prox ICA 39.5/11.6 cm/sec. Mid ICA 73/20.1 cm/sec. Mid ICA 66.6/20.3 cm/sec. Dist ICA 70.2/20.1 cm/sec. Dist ICA 75/21.6 cm/sec. Rt. ICA/CCA = 1.17. Lt. ICA/CCA = 1.04. Prox ECA 76.8/5 cm/sec. Prox ECA 68.3/4.1 cm/sec. Rt. Vert. 24.8/6.9 cm/sec. Lt. Vert. 43/5.5 cm/sec. Right Extracranial There is intimal thickening but no significant atherosclerotic plaque noted in the right common carotid artery. There is heterogeneous, irregular atherosclerotic plaque noted in the right internal carotid artery. There is intimal thickening but no significant atherosclerotic plaque noted in the right external carotid artery. Antegrade flow is noted in the right vertebral artery. Left Extracranial There is intimal thickening but no significant atherosclerotic plaque noted in the left common carotid artery. There is homogeneous, smooth atherosclerotic plaque noted in the left internal carotid artery. There is intimal thickening but no significant atherosclerotic plaque noted in the left external carotid artery. Antegrade flow is noted in the left vertebral artery. Procedure Carotid Duplex 11622. This is a Carotid Duplex examination using B-mode, color flow and specral Doppler. Exam performed in department. VL/Carotid Duplex Ultrasound Interpretation Summary Minimal irregular plaque at the proximal right internal carotid artery with les s than 50% stenosis Less than 50% stenosis right external carotid artery Smooth plaque of the proximal left internal carotid artery with less than 50% s tenosis Less than 50% stenosis left external carotid artery Patent and antegrade vertebral arteries bilaterally Ordering Physician: Aparna William Referring Physician: Aparna William D.O. Performed By: Anitra Saldivar RVT
== END 2022-06-27 23:59 | disposition home or self-care (01) ==
LOC: CVS 12:51
PROVIDERS: PCP Internal Medicine; Visit Provider Internal Medicine
DX: I73.9 Peripheral vascular disease, unspecified (principal); R93.89 Abnormal findings on diagnostic imaging of other specified body structures; I65.22 Occlusion and stenosis of left carotid artery
CPT/HCPCS: 93880; 93922

== ENCOUNTER → 2023-04-12 | Outpatient (CLI) | payer MEDICARE, SELFPAY ==
--- NOTE | 2023-04-12 09:40 | BI_ITS ---
MAMMOGRAPHY - BILATERAL SCREENING REASON FOR EXAM: Female, 82 years old. Routine annual screening examination. PERTINENT HISTORY: Non-contributory. TECHNIQUE: Digital bilateral breast brian (3D mammographic acquisition) in the CC and MLO projections. 2-D mediolateral oblique (MLO) and craniocaudad (CC) views of both breasts were obtained. CAD: Full Field Digital Mammography with Computer Added Detection was performed. COMPARISON: Comparison is made with prior study dated April 10, 2022 and April 07, 2021. FINDINGS: Breast Composition: There are scattered areas of fibroglandular density. There are no dominant masses or suspicious calcifications. No other significant abnormalities are identified. There has been no significant change since the prior study. BI/SCRN MAMM (CAD)W/BRIAN BILAT IMPRESSION: Stable bilateral screening mammogram. Yearly follow-up mammogram recommended. (A) ASSESSMENT CATEGORY: BIRADS Category 1: Negative. A letter regarding these results will be sent to the patient by the facility within 30 days. Approximately 10% of breast cancers are not detected by mammography. A normal mammogram should not delay biopsy of a clinically suspicious abnormality. [id number] Electronically Signed: Constantino Sparks MD at 11:06 EDT ,
--- NOTE | 2023-04-12 09:42 | BD_ITS ---
STUDY: DUAL ENERGY X-RAY ABSORPTIOMETRY / DXA REASON FOR EXAM: Female, 82 years old. [id number] TECHNIQUE: Bone Mineral Density (BMD) measurements of lumbar spine and bilateral hips were obtained. COMPARISON: Comparison is made with prior study dated April 07, 2021. FINDINGS: Lumbar Spine (L1-L4): g/cm2 (0.837) / T-score (-1.9) / Z-score (0.9) Findings are suggestive of osteopenia with a moderate fracture risk. Left Femur Total: g/cm2 (0.698) / T-score (-2.0) / Z-score (0.2) Left Femoral Neck: g/cm2 (0.608) / T-score (-2.2) / Z-score (0.2) Right Femur Total: g/cm2 (0.730) / T-score (-1.7) / Z-score (0.5) Right Femoral Neck: g/cm2 (0.646) / T-score (-1.8) / Z-score (0.6) The T-Scores on the most recent prior examination were: Lumbar Spine (L1-L4): There has been improvement of bone density since the previous examination. Left Femur Total: which represents an improvement of 2%. Right Femur Total: which represents an improvement of 0.1%. BD/Dexa Bone Density Study IMPRESSION: The patient is considered osteopenic as outlined below according to World [employer] Organization (WHO) criteria with a high fracture risk. There has been improvement of bone density since the previous examination. Reference Information: The T-score is the number of standard deviations above or below the standard which is normal for young adults at their peak bone mineral density. The World Health Organization (WHO) interprets the T-scores as follows: Above -1 Normal bone density Between -1 and -2.5 Osteopenia Equal to / or below -2.5 Osteoporosis As a practical clinical guideline, osteopenia may be graded as follows: Mild -1 through -1.5 Moderate -1.6 through -2.0 Severe -2.1 through -2.4 The Z-score is the number of standard deviations above or below age-matched controls. A Z-score of less than -1.5 would be considered abnormal. References: 1. NIH Osteoporosis and Related Bone Diseases www osteo.org 2. International Society for Clinical Densitometry www iscd.org 3. National Osteoporosis Foundation www nof.org Electronically Signed: Constantino Sparks MD at 10:07 EDT ,
== END | disposition home or self-care (01) ==
LOC: OPBD 09:38
PROVIDERS: PCP Internal Medicine; Referring Provider Internal Medicine; Visit Provider Internal Medicine
DX: Z12.31 Encounter for screening mammogram for malignant neoplasm of breast (principal); Z78.0 Asymptomatic menopausal state
CPT/HCPCS: 77063; 77067; 77080

== ENCOUNTER → 2023-04-17 | Outpatient (CLI) | payer MEDICARE, SELFPAY ==
--- NOTE | 2023-04-17 09:43 | US_ITS ---
STUDY: ABDOMINAL ULTRASOUND - RIGHT UPPER QUADRANT; ELASTOGRAPHY REASON FOR VISIT: Female, 82 years old. Fatty infiltration of the liver. TECHNIQUE: Ultrasound evaluation of the right upper quadrant was performed with real-time and static tolliver-scale imaging. Point quantification shear wave elastography was performed ([employer]). TECHNICAL QUALITY: Adequate. COMPARISON: Comparison is made with prior study dated April 10, 2022. FINDINGS: Liver: The liver measures 12.5 cm. There is increased echogenicity consistent with fatty infiltration. The bile ducts are within normal limits. There is hepatic color flow. The direction of portal flow is hepatopetal. There is no demonstrated mass lesion. Median liver stiffness measured 9 kPa. Gallbladder: Normal distended gallbladder. The gallbladder wall measures 1.1 mm. There is a negative sonographic Sherman''s sign. There is no pericholecystic fluid. There are no gallstones. Common Bile Duct (C.B.D.): The common bile duct measures 3.1 mm. Pancreas: There is normal echogenicity of the visualized pancreas. There is no demonstrated pancreatic mass or cyst. Right Kidney: Normal size of the right kidney. The right kidney measures 10.5 cm x 4.8 cm x 4.3 cm. Normal renal cortex. The right cortex measures 1.5 cm. There is no demonstrated renal mass or cyst. There is no right hydronephrosis. US/ABD Limited w/ Elastography IMPRESSION: 1. Liver stiffness measures 9 kPa compatible with F2-F3 (Mild to moderate liver fibrosis) Metavir score. Electronically Signed: Constantino Sparks MD at 12:17 EDT ,
== END | disposition home or self-care (01) ==
LOC: US 09:42
PROVIDERS: PCP Internal Medicine; Referring Provider Internal Medicine; Visit Provider Internal Medicine
DX: K76.0 Fatty (change of) liver, not elsewhere classified (principal)
CPT/HCPCS: 76705; 76981

== ENCOUNTER → 2023-08-14 | Outpatient (CLI) | payer MEDICARE, SELFPAY ==
--- NOTE | 2023-08-14 13:12 | STRESSREP ---
Stress Test Report Exercise myocardial perfusion stress test. 82-year-old lady with a history of chest pain Stress protocol: Resting EKG demonstrates normal sinus rhythm rate of 67 bpm resting blood pressure is 138/84 mmHg. The patient exercised according to the regular Ayo protocol for a total duration of 5 minutes and 20 seconds attaining a maximum heart rate of 141 bpm which was 102% of maximum predicted heart rate; the maximum workload was 7 metabolic equivalents. At rest there were no ST or T wave changes noted to suggest ischemia and at peak exercise upsloping ST changes only were noted which did not meet the criteria for ischemia. No clinical angina was noted the test was terminated due to the target heart rate being achieved/fatigue. The peak blood pressure was 160/86 mmHg. Rate-pressure product was 21,100. Myocardial perfusion protocol. 11.3 mCi of technetium 99m sestamibi was injected at rest. The patient exercised according to regular Ayo protocol for total duration of 5 minutes and 20 seconds and at peak exercise 33.9 mCi of technetium 99m sestamibi was injected stress images were obtained stress and rest images were reconstructed in comparing the short axis vertical long and horizontal long axis. Gated images were also obtained. Perfusion SPECT analysis: Review of the stress images demonstrate normal uptake of tracer noted in all areas of the myocardium. The resting images similarly demonstrate normal uptake of tracer noted in all areas of the myocardium. No areas of reversibility are noted to suggest ischemia no previous infarct was noted. Gated SPECT analysis: The gated ejection fraction is 88%. Conclusion: Normal exercise myocardial perfusion stress test at a moderate workload Preserved ejection fraction.
== END | disposition home or self-care (01) ==
LOC: CVS 06:59
PROVIDERS: PCP Internal Medicine; Referring Provider Nurse Practitioner Family; Visit Provider Nurse Practitioner Family
DX: I47.29 Other ventricular tachycardia (principal); I49.5 Sick sinus syndrome; Z95.0 Presence of cardiac pacemaker; I10 Essential (primary) hypertension; I51.89 Other ill-defined heart diseases
CPT/HCPCS: 78452; 93017; A9500; A4216

== ENCOUNTER → 2024-02-26 | Outpatient (CLI) | payer MEDICARE, SELFPAY ==
[2024-02-26 15:36] LABS: Troponin-I HS 6 pg/mL (3.0-54.0)
== END | disposition home or self-care (01) ==
LOC: LABSPEC 15:07
PROVIDERS: PCP Internal Medicine; Referring Provider Internal Medicine; Visit Provider Internal Medicine
DX: R00.2 Palpitations (principal)
CPT/HCPCS: 84484

== ENCOUNTER → 2024-03-06 | Outpatient (CLI) | payer MEDICARE, SELFPAY ==
[2024-03-06 12:51] LABS: Anion Gap 5 (5-15); BUN 24 mg/dL (7-18); BUN/Creat Ratio 26.8 RATIO (10-20); Calcium,Total 9.2 mg/dL (8.5-10.1); Chloride 107 mmol/L (98-107); Creatinine, Serum 0.89 mg/dL (0.55-1.02); EST Glomerular Filtration Rate 64 mL/min (>60); Est Glom Filt Rate - Afr Amer 77 mL/min (>60); Glucose 91 mg/dL (74-106); Magnesium 2.2 mg/dL (1.6-2.6); Potassium 4.4 mmol/L (3.5-5.1); Sodium Level 141 mmol/L (136-145)
== END | disposition home or self-care (01) ==
LOC: LAB 11:51
PROVIDERS: PCP Internal Medicine; Referring Provider Internal Medicine Cardiovascular Disease; Visit Provider Internal Medicine Cardiovascular Disease
DX: I47.29 Other ventricular tachycardia (principal)
CPT/HCPCS: 36415; 80048; 83735

== ENCOUNTER → 2024-03-07 | Outpatient (CLI) | payer MEDICARE, SELFPAY | END | disposition home or self-care (01) | LOC: PSN 08:43 | PROVIDERS: PCP Internal Medicine; Referring Provider Internal Medicine Cardiovascular Disease; Visit Provider Internal Medicine Cardiovascular Disease | DX: I47.29 Other ventricular tachycardia (principal) | CPT/HCPCS: 93225; 93226 ==

== ENCOUNTER → 2024-03-11 | Outpatient (CLI) | payer MEDICARE, SELFPAY ==
--- NOTE | 2024-03-11 11:00 | ECHOD_ITS ---
Reason For Study: Arrhythmia Procedure This was a 2D Doppler, Color Flow transthoracic echocardiogram. Exam performed in department. Left Ventricle Normal LV size. Left ventricular systolic function is normal. The left ventricular ejection fraction is 65 %. Stage 1 diastolic dysfunction. No regional wall motion abnormalities noted. Right Ventricle Normal RV size. ICD or pacer leads identified within the right ventricle. Normal systolic function. Atria Normal left atrium. Normal right atrium. Mitral Valve Mild focal mitral valve calcification, bileaflet. Mild-Moderate (1-2+) eccentric mitral valve insufficiency. Tricuspid Valve Normal tricuspid valve. Mild (1+) tricuspid valve insufficiency. Pulmonary artery systolic pressure is 33 mmHg. Aortic Valve Trisinus/trileaflet aortic valve. Mild focal aortic valve calcification. Pulmonic Valve Normal pulmonic valve. Great Vessels Normal aortic root. The pulmonary artery is normal size. Normal inferior vena cava. Pericardium/Pleural No pericardial effusion. MMode/2D Measurements & Calculations LVIDd: 3.8 cm IVSd: 1.1 cm Ao root diam: 2.9 cm LVIDs: 2.0 cm LVPWd: 0.73 cm RVDd: 3.2 cm FS: 48.2 % LAV(MOD-bp): 26.5 ml LVAd ap4: 19.0 cm2 LVAd ap2: 17.9 cm2 LAV(MOD-bp) Indexed: 16.7 ml/m2 LVLd ap4: 6.8 cm LVLd ap2: 6.9 cm LAV(MOD-sp2): 25.3 ml EDV(MOD-sp4): 43.3 ml EDV(MOD-sp2): 39.6 ml LAV(MOD-sp4): 24.6 ml EDV(sp4-el): 44.8 ml EDV(sp2-el): 39.7 ml LVAs ap4: 10.5 cm2 LVAs ap2: 9.2 cm2 LVLs ap4: 5.9 cm LVLs ap2: 5.9 cm ESV(MOD-sp4): 16.8 ml ESV(MOD-sp2): 12.4 ml ESV(sp4-el): 16.0 ml ESV(sp2-el): 12.2 ml EF(MOD-sp4): 61.3 % EF(MOD-sp2): 68.7 % EF(sp4-el): 64.3 % SV(MOD-sp4): 26.5 ml SV(MOD-sp2): 27.2 ml SV(sp4-el): 28.8 ml LA dimension(2D): 3.2 cm LA A4 area: 10.9 cm2 RA A4 area: 14.1 cm2 TAPSE: 2.3 cm Time Measurements MV dec time: 0.17 sec Doppler Measurements & Calculations MV E max kin: 83.6 cm/sec Lat Peak E' Kin: 8.9 cm/sec Med Peak E' Kin: 5.9 cm/sec MV A max kin: 93.2 cm/sec E/E' lat: 9.4 E/E' med: 14.1 MV E/A: 0.90 MV dec slope: 485.9 cm/sec2 Ao V2 max: 119.2 cm/sec LV V1 max: 88.3 cm/sec Ao max P.7 mmHg LV V1 max P.1 mmHg Ao V2 mean: 84.3 cm/sec LV V1 mean P.7 mmHg Ao mean P.3 mmHg LV V1 mean: 61.1 cm/sec Ao V2 VTI: 30.8 cm LV V1 VTI: 22.8 cm AV (velocity ratio): 0.74 PA V2 max: 65.9 cm/sec TR max kin: 274.9 cm/sec TR max P.2 mmHg ECHO/Echo Complete Interpretation Summary Normal LV size. Left ventricular systolic function is normal. The left ventricular ejection fraction is 65 %. Stage 1 diastolic dysfunction. ICD or pacer leads identified within the right ventricle. Ordering Physician: Bari Mosley Referring Physician: Aparna William D.O. Performed By: Tete Martínez RDCS
== END | disposition home or self-care (01) ==
LOC: CVS 10:59
PROVIDERS: PCP Internal Medicine; Referring Provider Internal Medicine Cardiovascular Disease; Visit Provider Internal Medicine Cardiovascular Disease
DX: I47.29 Other ventricular tachycardia (principal)
CPT/HCPCS: 93306

== ENCOUNTER → 2024-04-14 | Outpatient (CLI) | payer MEDICARE, SELFPAY ==
--- NOTE | 2024-04-14 08:52 | US_ITS ---
STUDY: ABDOMINAL ULTRASOUND - RIGHT UPPER QUADRANT; ELASTOGRAPHY REASON FOR VISIT: Female, 83 years old. Nonalcoholic fatty liver disease. TECHNIQUE: Ultrasound evaluation of the right upper quadrant was performed with real-time and static tolliver-scale imaging. Point quantification shear wave elastography was performed ([employer]). TECHNICAL QUALITY: Adequate. COMPARISON: Comparison is made with prior study dated April 17, 2023. FINDINGS: Liver: The liver measures 12.7 cm. There is increased echogenicity consistent with a mild degree of fatty infiltration. The bile ducts are within normal limits. There is hepatic color flow. The direction of portal flow is hepatopetal. There is no demonstrated mass lesion. Median liver stiffness measured 6.4 kPa. Gallbladder: Normal distended gallbladder. The gallbladder wall measures 2 mm. There is a negative sonographic Sherman''s sign. There is no pericholecystic fluid. There are no gallstones. Common Bile Duct (C.B.D.): The common bile duct measures 6 mm. Pancreas: There is normal echogenicity of the visualized pancreas. There is no demonstrated pancreatic mass or cyst. Right Kidney: Normal size of the right kidney. The right kidney measures 9.5 cm x 4.8 cm x 4 cm. Normal renal cortex. The right cortex measures 1.4 cm. There is no demonstrated renal mass or cyst. There is no right hydronephrosis. US/ABD Limited w/ Elastography IMPRESSION: 1. Liver stiffness measures 6.4 kPa compatible with F2-F3 (Mild to moderate liver fibrosis) Metavir score. Electronically Signed: Constantino Sparks MD at 12:14 EDT ,
--- NOTE | 2024-04-14 09:47 | BI_ITS ---
MAMMOGRAPHY - BILATERAL SCREENING REASON FOR EXAM: Female, 83 years old. Routine annual screening examination. PERTINENT HISTORY: Non-contributory. TECHNIQUE: Digital bilateral breast brian (3D mammographic acquisition) in the CC and MLO projections. 2-D mediolateral oblique (MLO) and craniocaudad (CC) views of both breasts were obtained. CAD: Full Field Digital Mammography with Computer Added Detection was performed. COMPARISON: Comparison is made with prior study dated April 12, 2023 and April 10, 2022. FINDINGS: Breast Composition: There are scattered areas of fibroglandular density. There are no dominant masses or suspicious calcifications. A battery pack of a pacemaker is seen in the left axilla. No other significant abnormalities are identified. There has been no significant change since the prior study. BI/SCRN MAMM (CAD)W/BRIAN BILAT IMPRESSION: Stable bilateral screening mammogram. Yearly follow-up mammogram recommended. (A) ASSESSMENT CATEGORY: BIRADS Category 2: Benign. A letter regarding these results will be sent to the patient by the facility within 30 days. Approximately 10% of breast cancers are not detected by mammography. A normal mammogram should not delay biopsy of a clinically suspicious abnormality. [id number] Electronically Signed: Constantino Sparks MD at 10:41 EDT ,
== END | disposition home or self-care (01) ==
PROVIDERS: PCP Internal Medicine; Referring Provider Internal Medicine; Visit Provider Internal Medicine
DX: Z12.31 Encounter for screening mammogram for malignant neoplasm of breast (principal)
CPT/HCPCS: 76705; 76981; 77063; 77067

== ENCOUNTER 2024-06-08 04:10 | Inpatient (IN) | payer MEDICARE, SELFPAY ==
[2024-06-08] VITALS (33 sets, daily range): BP systolic 66–160; BP diastolic 41–76; PULSE 76–108; RESP 13–22; TEMP 36.2–38; O2SAT 87–99; BMI 21.8; BMI 21.2
--- NOTE | 2024-06-08 04:25 | EDS_ITS ---
HPI HPI - GI History of Present Illness Chief Complaint: Abd Pain Informant: patient and family Narrative Narrative: 83-year-old female was awakened suddenly by severe left lower quadrant pain that she also feels radiates into her left low back 3 to 4 hours prior to arrival. Associated with vomiting as well. No urinary symptoms no problem with bowel movements recently, no fevers or chills. No syncope. Has had a kidney stone in the past that she passed on her own, thinks maybe this may feel like it but it was a long time ago and she is not exactly sure. 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 Palpitations Premature ventricular contraction Hyperlipemia Diastolic dysfunction GERD (gastroesophageal reflux disease) Essential hypertension Home Medications ?Medication ?Instructions ?Recorded ?Last Taken ?Type aspirin 325 mg tablet 325 mg PO DAILY 05/15/18 01/24/21 History coenzyme Q10 100 mg capsule (Co 100 mg PO DAILY 05/16/18 Unknown History Q-10) lactobacillus combination no.9 4 4,000 mmu cells PO DAILY 05/16/18 Unknown History billion cell capsule (Adult 50 Plus Probiotic) bismuth subsalicylate 262 mg 2 tab PO Q30-60M PRN upset stomach 07/14/19 Unknown History tablet (Pepto-Bismol) sumatriptan succinate 25 mg tablet 25 mg PO DAILY PRN migraine 07/14/19 Unknown History (Imitrex) headache losartan 50 mg tablet 50 mg PO BID 01/17/21 03/15/21 History atorvastatin 10 mg tablet 10 mg PO DAILY 10/24/21 Unknown History loperamide 2 mg capsule (Imodium 2 mg PO ONCE PRN 10/24/21 Unknown History A-D) omega-3 fatty acids-fish oil 684 1 cap PO DAILY 10/24/21 Unknown History mg-1,200 mg capsule,delayed release omeprazole 20 mg capsule,delayed 20 mg PO .COMPLEX 10/24/21 Unknown History release vitamin E 268 mg (400 unit) capsule 268 mg PO DAILY 12/21/22 Unknown History Quercetin with bromelain 2 cap PO DAILY 03/06/24 Unknown History carvedilol 12.5 mg tablet 12.5 mg PO BID 03/06/24 Unknown History cholecalciferol (vitamin D3) 25 5,000 unit PO DAILY 03/06/24 Unknown History mcg (1,000 unit) tablet ondansetron 8 mg disintegrating 8 mg PO Q8H PRN nausea and 06/08/24 Unknown Rx tablet vomiting #15 tabs oxycodone-acetaminophen 5 mg-325 1 tab PO .q4-6h PRN Pain 2 days 06/08/24 Unknown Rx mg tablet #12 TABLETS Allergy/AdvReac Type Severity Reaction Status Date / Time codeine Allergy Other Verified 03/06/24 11:35 nabumetone AdvReac Unknown Unknown Verified 03/06/24 11:35 Family History Father Myocardial infarction Sister CAD (coronary artery disease) History of coronary artery bypass surgery Mother Myocardial infarction Surgical History Status post trigger finger release History of tonsillectomy History of carpal tunnel surgery History of cataract surgery Social History Smoking Status: Never smoker alcohol intake: never substance use type: does not use caffeine: No ROS ROS ED Constitutional Constitutional ED: Denies chills or fever(s) Eyes Eyes: Denies change in vision or diplopia ENT ENT ED: Denies rhinorrhea or sore throat Cardiovascular Cardiovascular: Denies chest pain or palpitations Respiratory/Chest Respiratory/Chest: Denies cough or dyspnea Gastrointestinal Gastrointestinal: Reports abdominal pain, nausea and vomiting; Denies diarrhea Genitourinary Genitourinary ED: Reports flank pain; Denies dysuria or hematuria Musculoskeletal Musculoskeletal: Reports back pain; Denies neck pain Integumentary Denies abscess or rash Neurologic Neurologic: Denies headache(s), paresthesias or weakness Psychiatric Psychiatric: Denies anxiety or suicidal thoughts EXAM Physical Exam Const Vital Signs: 06/08/24 04:11 06/08/24 05:01 06/08/24 05:02 Temperature 97.7 F L Temperature Source Oral Pulse Rate 78 Respiratory Rate 18 Blood Pressure 157/76 H Blood Pressure Mean 103 Pulse Ox 96 87 98 Oxygen Delivery Method Room Air Room Air Nasal Cannula Oxygen Flow Rate (L/min) 2 06/08/24 07:43 Temperature 97.2 F L Temperature Source Oral Pulse Rate 88 Respiratory Rate 15 Blood Pressure 160/65 H Blood Pressure Mean 96 Pulse Ox 96 Oxygen Delivery Method Room Air Oxygen Flow Rate (L/min) Positive well nourished and well developed General Appearance ED: well developed and NAD HEENT Reports moist mucous membranes normocephalic and atraumatic Eyes PERRL and EOMs intact bilaterally Neck full ROM and supple Resp normal respiratory effort and clear to auscultation bilaterally Cardio regular rate, regular rhythm and no murmurs GI non-tender and non-distended Auscultation: normoactive bowel sounds Palpation: soft; Negative for pulsatile mass Back/Spine General Back: CVA tenderness left (Mild. Normal inspection.) and other FROM Extremity normal to inspection General Extremety ED: Negative for edema, pulses abnormal or tenderness General Extremity: Negative for edema or pulses abnormal Neuro oriented x3, CN's II-XII intact bilaterally and no sensory deficits noted Sensorium / Orientation: awake and alert Motor Exam: strength 5/5 throughout Skin no rashes or lesions noted and no wounds MDM MDM MDM Narrative Medical decision making narrative: Distal pulses are intact, and this is likely to be kidney stone but reasonable to obtain a CT to rule out AAA while treating her symptoms and obtaining labs, urinalysis. She was given morphine was transiently held but then her pain was creeping back, in the meantime I reviewed her labs, urinalysis, CT. I reviewed the images and report which I agree with, basically shows a 4 mm left distal ureteral stone with some signs of obstructive uropathy, which explains her pain. With the morphine she had, 2 mg along with some Zofran, she was frequently transiently dropping her oxygen saturations mostly to 88-90%, but occasionally would dip down to 86 so we put some oxygen on her. I recommended keeping her in the hospital she was still in a lot of pain, she states it is a 6/10, and with 3 family members and herself, they all decided to try to go home and so they would prefer to try an oral analgesics that she would use at home such as Percocet, see how much that helped her pain so that was given. With regards to her urinalysis, there is no pyuria but she does have bacteriuria on the microscopy as well as positive nitrite. My suspicion for infection is relatively low but I am sending over culture given this mixed bag of findings. We were observing her after the Percocet she said that her pain was not a whole lot better but she appears comfortable when she started having some chills. I advised family I thought it would be best to admit her given the fact that she still uncomfortable and she lives an hour away. All 3 of her children that are here all agree that they want to take her home and they think she will do fine and they will bring her back if she gets worse. Therefore we took her off of the oxygen to make sure she was maintaining saturations which she is, so we will prescribe Percocet, provide strainers, and a prescription for some nausea medicine as well. Lab Data Attestation: I reviewed the patient's lab results. Labs: Laboratory Results - last 24 hr 06/08/24 06/08/24 04:23 05:57 WBC 9.0 RBC 4.48 Hgb 13.1 Hct 40.7 MCV 90.8 MCH 29.2 MCHC 32.2 RDW Std Deviation 41.5 RDW Coeff of Jacob 12.6 Plt Count 149 L MPV 9.9 Immature Gran % (Auto) 0.400 Neut % (Auto) 84.5 H Lymph % (Auto) 8.1 L Toombs % (Auto) 5.7 Eos % (Auto) 0.9 Baso % (Auto) 0.4 Absolute Neuts (auto) 7.6 Absolute Lymphs (auto) 0.73 L Nucleated RBC % 0 Sodium 140 Potassium 3.7 Chloride 106 Carbon Dioxide 27.0 Anion Gap 7 BUN 27 H Creatinine 0.99 Estim Creat Clear Calc 37.18 Est GFR (MDRD) Af Amer 69 Est GFR (MDRD) Non-Af 57 L BUN/Creatinine Ratio 27.3 H Glucose 149 H Calcium 9.1 Urine Color Yellow Urine Clarity Clear Urine pH 7.0 Ur Specific Secor 1.015 Urine Protein 15 H Urine Glucose (UA) Normal Urine Ketones Negative Urine Occult Blood 150 H Urine Nitrite Positive H Urine Bilirubin Negative Urine Urobilinogen Normal Ur Leukocyte Esterase 25 H Urine RBC 10-25 SEEN Urine WBC 0-5 SEEN Ur Squamous Epith Cells 0 SEEN Urine Bacteria 2+ Urine Mucus 0 SEEN Radiography Diagnostic Testing: Clinical Impression(s) from Imaging Studies Abdomen/Pelvis CT 06/08/24 04:40 IMPRESSION: 1. There is a 4 mm stone in the distal left ureter just proximal to the UVJ, causing mild obstructive changes. 2. Tiny nonobstructing stones in the kidneys bilaterally. Electronically Signed: Juan Ngo MD at 6:51 EST , Discharge Plan Triage Chief Complaint: Abd Pain ED Provider: Taco Morrow Dx/Rx/DC Orders Clinical Impression: Ureteral colic, Ureterolithiasis Instructions: ED Kidney Stone with Pain Prescriptions: New oxycodone-acetaminophen 5-325 mg tablet 1 tab PO .q4-6h PRN (Reason: Pain) 2 Days Qty: 12 0RF ondansetron 8 mg tablet,disintegrating 8 mg PO Q8H PRN (Reason: nausea and vomiting) Qty: 15 0RF No Action Adult 50 Plus Probiotic 4 billion cell capsule 4,000 mmu cells PO DAILY coenzyme Q10 [Co Q-10] 100 mg capsule 100 mg PO DAILY aspirin 325 mg tablet 325 mg PO DAILY sumatriptan succinate [Imitrex] 25 mg tablet 25 mg PO DAILY PRN (Reason: migraine headache) cholecalciferol (vitamin D3) 25 mcg (1,000 unit) tablet 5,000 unit PO DAILY Pepto-Bismol 262 mg tablet 2 tab PO Q30-60M PRN (Reason: upset stomach) losartan 50 mg tablet 50 mg PO BID omeprazole 20 mg capsule,delayed release(DR/EC) 20 mg PO .COMPLEX Rx Instructions: 20 mg PO every 3rd day; atorvastatin 10 mg tablet 10 mg PO DAILY Patient Comments: TAKE ONE TABLET BY MOUTH EVERY DAY loperamide [Imodium A-D] 2 mg capsule 2 mg PO ONCE PRN Quercetin with bromelain 2 cap PO DAILY carvedilol 12.5 mg tablet 12.5 mg PO BID omega-3 fatty acids-fish oil 684-1,200 mg capsule,delayed release(DR/EC) 1 cap PO DAILY vitamin E 268 mg (400 unit) capsule 268 mg PO DAILY Primary Care Provider: Aparna William Referrals: Aparna William DO [Primary Care Provider] - Krystina Stokes MD [Med Staff - Active Staff] - 3-5 Days if not improving Print Language: Andorran Disposition Disposition: Home, Self Care
[2024-06-08] MEDS: Morphine 2 MG/ML Syringe IV (04:27)
[2024-06-08] MEDS: Ondansetron 4 MG/2 ML Vial IV (04:27)
[2024-06-08 04:32] LABS: Absolute Lymphocyte Count 0.73 X10^3/uL (0.83-4.51); Absolute Neutrophil Count 7.6 X10^3/uL (2.0-7.7); Basophil# 0.04 X10^3/uL; Basophil% 0.4 % (0-1); Eosinophil# 0.08 X10^3/uL; Eosinophils% 0.9 % (0-5); Hematocrit 40.7 % (37-47); Hemoglobin 13.1 g/dL (12.0-15.0); Lymphocyte # 0.73 X10^3/ul (0.83-4.51); Lymphocyte % 8.1 % (19-41); Mean Corp Hgb Conc 32.2 g/dL (32-36); Mean Corpuscular Hgb 29.2 pg (27.0-32.0); Mean Corpuscular Volume 90.8 fL (81-99); Mean Platelet Vol. 9.9 fl (6.2-12.0); Monocyte# 0.51 X10^3/uL; Monocyte% 5.7 % (0-10); NRBC Flagged by Analyzer 0 % (0-5); Neutrophil # 7.56 X10^3/uL (2.7-7.7); Neutrophil % 84.5 % (47-70); Platelet Count 149 K/mm3 (150-450); RBC Distribution Width CV 12.6 % (11.6-14.6); RBC Distribution Width SD 41.5 fl (35.1-43.9); Red Blood Count 4.48 M/mm3 (4.2-5.4)
--- NOTE | 2024-06-08 04:40 | CT_ITS ---
EXAM: CT ABDOMEN AND PELVIS WITHOUT INTRAVENOUS CONTRAST CLINICAL INDICATION: Pain L flank TECHNIQUE: Helically acquired images were obtained of the abdomen and pelvis without intravenous contrast. This CT exam was performed using one or more of the following dose reduction techniques: automated exposure control, adjustment of the mA and/or kV according to patient size, and/or use of iterative reconstruction technique. RADIATION DOSE: CTDIvol = 6.07 mGy, DLP = 298.87 mGy-cm COMPARISON: CT abdomen pelvis 01/17/2016 FINDINGS: LOWER THORAX: Bibasilar scarring/atelectasis. No cardiomegaly. No significant pericardial effusion. ABDOMEN: LIVER: Unremarkable. Homogeneous. GALLBLADDER AND BILE DUCTS: Unremarkable. No calcified gallstones. No gallbladder distention or wall edema. No intra- or extrahepatic biliary ductal dilation. PANCREAS: Unremarkable. No focal cystic mass. SPLEEN: Unremarkable. Normal size without focal cystic or solid mass. ADRENALS: Unremarkable. No nodules. KIDNEYS AND URETERS: There is a 4 mm stone in the distal left ureter just proximal to the UVJ, causing mild obstructive changes. Tiny nonobstructing stones in the kidneys bilaterally. Simple left renal cyst. No follow-up imaging is recommended per consensus recommendations based on imaging criteria. Normal renal size and position. STOMACH AND BOWEL: Unremarkable. No stomach or bowel distention. No focal inflammatory change. PELVIS: APPENDIX: No evidence of acute appendicitis. BLADDER: Unremarkable. REPRODUCTIVE: Unremarkable as visualized. No mass. ABDOMEN and PELVIS: INTRAPERITONEAL SPACE: Unremarkable. No ascites or other fluid collection. No free air. BONES/JOINTS: Diffuse degenerative changes of the spine. No suspicious lytic or blastic abnormality. SOFT TISSUES: Unremarkable. No discrete abdominal or pelvic wall hernia. VASCULATURE: Unremarkable. Abdominal aorta is non-dilated. LYMPH NODES: Unremarkable. No enlarged lymph nodes. CT/Abdomen/Pelvis without Cont IMPRESSION: 1. There is a 4 mm stone in the distal left ureter just proximal to the UVJ, causing mild obstructive changes. 2. Tiny nonobstructing stones in the kidneys bilaterally. Electronically Signed: Juan Ngo MD at 6:51 EST ,
[2024-06-08 04:47] LABS: Anion Gap 7 (5-15); BUN 27 mg/dL (7-18); BUN/Creat Ratio 27.3 RATIO (10-20); Calcium,Total 9.1 mg/dL (8.5-10.1); Chloride 106 mmol/L (98-107); Creatinine, Serum 0.99 mg/dL (0.55-1.02); EST Glomerular Filtration Rate 57 mL/min (>60); Est Glom Filt Rate - Afr Amer 69 mL/min (>60); Estimated Creatinine Clearance 37.18 ml/min; Glucose 149 mg/dL (74-106); Potassium 3.7 mmol/L (3.5-5.1); Sodium Level 140 mmol/L (136-145)
[2024-06-08 06:07] LABS: Mucous, Urine 0 SEEN /hpf (<or=2+); Squamous Epithelial Cells - UA 0 SEEN /hpf (5-10)
[2024-06-08 06:11] LABS: Color, Urine Yellow (Yellow); Glucose, Dipstick Normal (Normal); Ketone-Dipstick Negative (Negative); Leukocyte Esterase-Dipstick 25 /ul (Negative); Nitrite-Dipstick Positive (Negative); Occult Blood-Urine 150 /ul (Negative); Protein-Dipstick 15 mg/dl (Negative); Specific Gravity, Urine 1.015 (1.002-1.030); Urine Bilirubin Dipstick Negative (Negative); Urine Clarity Clear (Clear); Urine Urobilinogen Normal (Normal)
[2024-06-08 06:37] LABS: Bacteria 2+ /hpf (None Seen); Red Blood Cells-Urine 10-25 SEEN /hpf (0-5); White Blood Cells 0-5 SEEN /hpf (0-5)
[2024-06-08] MEDS: oxyCODONE 5 MG Tablet PO (07:40)
--- NOTE | 2024-06-08 10:59 | PCM.HP.STD ---
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 She also had nausea and vomiting 4 times daily bilious in nature. No fever or chills. She also feels dizzy and lightheaded on standing. Denies burning micturition, increase frequency urgency. In ED she was found to have left UVJ stone with mild obstructive changes. Patient has history of kidney stone about 8 years ago and passed spontaneously then. In ED her blood pressure was in normal range 157/76, 141/50 but she dropped her blood pressure on the floor around 1230 afternoon 85/46. 1 L Ringer lactate ordered. 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 Palpitations Premature ventricular contraction Hyperlipemia Diastolic dysfunction GERD (gastroesophageal reflux disease) Essential hypertension Home Medications ?Medication ?Instructions ?Recorded ?Last Taken ?Type aspirin 325 mg tablet 325 mg PO DAILY 05/15/18 01/24/21 History coenzyme Q10 100 mg capsule (Co 100 mg PO DAILY 05/16/18 Unknown History Q-10) lactobacillus combination no.9 4 4,000 mmu cells PO DAILY 05/16/18 Unknown History billion cell capsule (Adult 50 Plus Probiotic) bismuth subsalicylate 262 mg 2 tab PO Q30-60M PRN upset stomach 07/14/19 Unknown History tablet (Pepto-Bismol) sumatriptan succinate 25 mg tablet 25 mg PO DAILY PRN migraine 07/14/19 Unknown History (Imitrex) headache losartan 50 mg tablet 50 mg PO BID 01/17/21 03/15/21 History atorvastatin 10 mg tablet 10 mg PO DAILY 10/24/21 Unknown History loperamide 2 mg capsule (Imodium 2 mg PO ONCE PRN loose stool 10/24/21 Unknown History A-D) omega-3 fatty acids-fish oil 684 1 cap PO DAILY 10/24/21 Unknown History mg-1,200 mg capsule,delayed release omeprazole 20 mg capsule,delayed 20 mg PO .COMPLEX 10/24/21 Unknown History release vitamin E 268 mg (400 unit) capsule 268 mg PO DAILY 12/21/22 Unknown History Quercetin with bromelain 2 cap PO DAILY 03/06/24 Unknown History carvedilol 12.5 mg tablet 12.5 mg PO BID 03/06/24 Unknown History cholecalciferol (vitamin D3) 25 5,000 unit PO DAILY 03/06/24 Unknown History mcg (1,000 unit) tablet ondansetron 8 mg disintegrating 8 mg PO Q8H PRN nausea and 06/08/24 Unknown Rx tablet vomiting #15 tabs oxycodone-acetaminophen 5 mg-325 1 tab PO .q4-6h PRN Pain 2 days 06/08/24 Unknown Rx mg tablet #12 TABLETS Allergy/AdvReac Type Severity Reaction Status Date / Time codeine Allergy Other Verified 03/06/24 11:35 nabumetone AdvReac Unknown Unknown Verified 03/06/24 11:35 Family History Father Myocardial infarction Sister CAD (coronary artery disease) History of coronary artery bypass surgery Mother Myocardial infarction Surgical History Status post trigger finger release History of tonsillectomy History of carpal tunnel surgery History of cataract surgery Social History Smoking Status: Never smoker alcohol intake: never substance use type: does not use caffeine: No ROS ROS Narrative Constitutional: Reports fatigue and weakness. No fever. HEENT: Reports systems reviewed and no addt'l complaints, except as documented Respiratory/Chest: No acute shortness of breath or respiratory distress or wheezing. CVS: No chest pain or shortness of breath Gastrointestinal: Denies coffee ground emesis, hematemesisbut nausea and abdominal pain. Rest as described in HPI Genitourinary: History of kidney stone denies burning urination or new urinary tract symptoms Musculoskeletal: Denies acute joint pain or limited range of motion. No acute injury Neurologic: Denies seizure-like symptoms. skin: No ulcer. No rash Endocrinology: Reports systems reviewed and no addt'l complaints, except as documented Hematologic/Lymphatic: Reports systems reviewed and no addt'l complaints, except as documented Rest 14 ROS are negative except as mentioned in HPI Vital Signs Vital Signs Vital Signs: 06/08/24 04:11 06/08/24 05:01 06/08/24 05:02 Temperature 97.7 F L Temperature Source Oral Pulse Rate 78 Respiratory Rate 18 Blood Pressure 157/76 H Blood Pressure Mean 103 Pulse Ox 96 87 98 Oxygen Delivery Method Room Air Room Air Nasal Cannula Oxygen Flow Rate (L/min) 2 06/08/24 07:43 06/08/24 08:38 06/08/24 08:49 Temperature 97.2 F L Temperature Source Oral Pulse Rate 88 95 93 Respiratory Rate 15 14 15 Blood Pressure 160/65 H 141/50 H 141/50 H Blood Pressure Mean 96 80 80 Pulse Ox 96 87 92 Oxygen Delivery Method Room Air Room Air Nasal Cannula Oxygen Flow Rate (L/min) 2 06/08/24 10:18 Temperature 97.4 F L Temperature Source Oral Pulse Rate 92 Respiratory Rate 16 Blood Pressure 130/55 H Blood Pressure Mean 80 Pulse Ox 94 Oxygen Delivery Method Nasal Cannula Oxygen Flow Rate (L/min) 3 Weight Weight: 126 lb 15.78 oz Body Mass Index (BMI) 21.8 Physical Exam Narrative General: Alert, Oriented x3, Cooperative HEENT: Atraumatic, PERRLA, EOMI, Normocephalic Oral: Oral mucosa dry. No Gingival or Mucosal Lesions/ Ulcerations Neck: Supple, No JVD, Negative Carotid Bruits Chest wall/Lungs: Air entry diminished in bilateral lung bases. No crepitation/rhonchi Cardiovascular: Regular rate, Regular Rhythm, Normal S1, Normal S2, No M/G/R Abdomen: Bowel Sounds Present, Soft, Non Tender, Non-Distended : No dysuria. No renal angle tenderness. No suprapubic tenderness. Extremities: No edema, Capillary Refill Less than 3 Seconds Skin: No rashes, No breakdown Musculoskeletal: No Tenderness to Palpation of Joints or Extremities Neurological: Cranial nerves II-XII grossly intact, DTR 2+/4. No acute focal neurological deficit. Psych/Mental Status: Normal Affect, Appropriate. Results Lab / Micro Data 06/08/24 04:23 06/08/24 04:23 Labs: Laboratory Results - last 24 hr 06/08/24 04:23: WBC 9.0, RBC 4.48, Hgb 13.1, Hct 40.7, MCV 90.8, MCH 29.2, MCHC 32.2, RDW Std Deviation 41.5, RDW Coeff of Jacob 12.6, Plt Count 149 L, MPV 9.9, Immature Gran % (Auto) 0.400, Neut % (Auto) 84.5 H, Lymph % (Auto) 8.1 L, [place] % (Auto) 5.7, Eos % (Auto) 0.9, Baso % (Auto) 0.4, Absolute Neuts (auto) 7.6, Absolute Lymphs (auto) 0.73 L, Nucleated RBC % 0, Sodium 140, Potassium 3.7, Chloride 106, Carbon Dioxide 27.0, Anion Gap 7, BUN 27 H, Creatinine 0.99, Estim Creat Clear Calc 37.18, Est GFR (MDRD) Af Amer 69, Est GFR (MDRD) Non-Af 57 L, BUN/Creatinine Ratio 27.3 H, Glucose 149 H, Calcium 9.1 06/08/24 05:57: Urine Color Yellow, Urine Clarity Clear, Urine pH 7.0, Ur Specific [place] 1.015, Urine Protein 15 H, Urine Glucose (UA) Normal, Urine Ketones Negative, Urine Occult Blood 150 H, Urine Nitrite Positive H, Urine Bilirubin Negative, Urine Urobilinogen Normal, Ur Leukocyte Esterase 25 H, Urine RBC 10-25 SEEN, Urine WBC 0-5 SEEN, Ur Squamous Epith Cells 0 SEEN, Urine Bacteria 2+, Urine Mucus 0 SEEN Imaging Radiology Impression Abdomen/Pelvis CT 06/08/24 04:40 IMPRESSION: 1. There is a 4 mm stone in the distal left ureter just proximal to the UVJ, causing mild obstructive changes. 2. Tiny nonobstructing stones in the kidneys bilaterally. Electronically Signed: Juan Ngo MD at 6:51 EST , Assessment & Plan Assessment/Plan (1) Ureteral colic: (2) Hypotension: QUALIFIERS: Hypotension type: unspecified hypotension type Qualified Code(s): I95.9 - Hypotension, unspecified PLAN: Plan This 83-year-old female being admitted for left lower quadrant, nausea and vomiting secondary to left UVJ stone 1. Left LLQ pain and ureteric colic from left UVJ stone: Patient is being admitted send floor. Abdomen/pelvis CT reviewed shows 4 m stone in distal left ureter just proximal to UVJ causing mild obstructive changes. Patient is started on IV ceftriaxone. She does not have low intact symptoms but has mild obstructive changes on CT scan. I consulted urologist Dr. Winston and discussed with him. Plan for possible cystoscopy tomorrow 2. Hypotension most likely due to vomiting and dehydration: Although BP was normal to high in ED but on floor, in afternoon, BP was 85/46. Patient was feeling dizzy and lightheaded on standing up. 1 L of RL given and then continue normal saline 150 mL/h for 2 more liter. Monitor blood pressure. I do not think patient is septic as she does not look very sick or febrile and labs did not support that 3. Cardiology disease: Sick sinus syndrome/tachybradycardia syndrome status post pacemaker, chronic HFpEF and PVC: Patient follows Dr. Mosley. She does not have acute chest pain shortness of breath or syncope or palpitation. Last echo as reported below Echo 03/11/2020 Interpretation Summary Normal LV size. Left ventricular systolic function is normal. The left ventricular ejection fraction is 65 %. Stage 1 diastolic dysfunction. ICD or pacer leads identified within the right ventricle. 4. Hypertension and dyslipidemia: As mentioned above. Hold antihypertensive medication. Statin continued 5. GERD: On PPI continued. Living will/advanced directive/end of life care: Patient does have living will or advanced directive. Her son present in patient's room is power of deputy commonwealth's attorney for health. After discussion of benefits/risks procedures involved with full code, DNR CC arrest and DNR CC, the patient opted for DNR CC arrest with no intubation Patient doesn't want artificial life support including intubation, tube feed, ventilator and/chest compression, central venous catheter, vasopressor and DC shock if needed Total time spent in [id number] encounter in discussion of advanced directive 17 minutes. Laboratory Results 06/08/24 04:23: WBC 9.0, RBC 4.48, Hgb 13.1, Hct 40.7, MCV 90.8, MCH 29.2, MCHC 32.2, RDW Std Deviation 41.5, RDW Coeff of Jacob 12.6, Plt Count 149 L, MPV 9.9, Immature Gran % (Auto) 0.400, Neut % (Auto) 84.5 H, Lymph % (Auto) 8.1 L, [place] % (Auto) 5.7, Eos % (Auto) 0.9, Baso % (Auto) 0.4, Absolute Neuts (auto) 7.6, Absolute Lymphs (auto) 0.73 L, Nucleated RBC % 0, Sodium 140, Potassium 3.7, Chloride 106, Carbon Dioxide 27.0, Anion Gap 7, BUN 27 H, Creatinine 0.99, Estim Creat Clear Calc 37.18, Est GFR (MDRD) Af Amer 69, Est GFR (MDRD) Non-Af 57 L, BUN/Creatinine Ratio 27.3 H, Glucose 149 H, Calcium 9.1 06/08/24 05:57: Urine Color Yellow, Urine Clarity Clear, Urine pH 7.0, Ur Specific [place] 1.015, Urine Protein 15 H, Urine Glucose (UA) Normal, Urine Ketones Negative, Urine Occult Blood 150 H, Urine Nitrite Positive H, Urine Bilirubin Negative, Urine Urobilinogen Normal, Ur Leukocyte Esterase 25 H, Urine RBC 10-25 SEEN, Urine WBC 0-5 SEEN, Ur Squamous Epith Cells 0 SEEN, Urine Bacteria 2+, Urine Mucus 0 SEEN Clinical Impression(s) from Imaging Studies Abdomen/Pelvis CT 06/08/24 04:40 IMPRESSION: 1. There is a 4 mm stone in the distal left ureter just proximal to the UVJ, causing mild obstructive changes. 2. Tiny nonobstructing stones in the kidneys bilaterally. Electronically Signed: Juan Ngo MD at 6:51 EST , Charges/Coding Visit Charges Inpatient E&M: 93555 Init Hosp L3 Procedures Hospitalists Procedures: 11205 Advncd Care Plan 30 Min
[2024-06-08] MEDS: Ceftriaxone 2 GM in 0.9% Normal Saline (50mL MB+) 50 ML IV (11:23)
[2024-06-08] MEDS: KCL 20MEQ in 0.9% NS 20 MEQ/1,000 ML IV.SOLN. 100 MEQ IV (12:31)
[2024-06-08] MEDS: Enoxaparin 40 MG/0.4 ML Syringe SC (12:36)
[2024-06-08] MEDS: Lactated Ringers 1,000 ML 999 ML IV ×2 (12:56→14:25)
--- NOTE | 2024-06-08 15:03 | CPS ---
SMI and pep placed at bedside. Attempted to start at this time but, pt was sleeping
--- NOTE | 2024-06-08 18:19 | CON.PCM.UR_ITS ---
Assessment & Plan Assessment/Plan (1) Hypotension: QUALIFIERS: Hypotension type: unspecified hypotension type Q ualified Code(s): I95.9 - Hypotension, unspecified (2) Ureterolithiasis: (3) Ureteral colic: HPI Consult Data Date of Consult: 06/08/24 HPI Narrative Reason for Consultation: Left kidney stone HPI Narrative: JACI BEE, is a 83 F who presents to the hospital with severe left renal colic she has a 4 mm stone in the distal left ureter has been fairly painful also her blood pressure has been running certainly low. She is not tachycardic. She not running any fevers. White blood count was normal. So no obvious signs of sepsis or infection but the low blood pressure is concerning. For now I am going to put on the schedule for a cystoscopy and left stent placement possible ureteroscopy and laser but only if she is stable. Obviously if she passes the stone and the surgery will be canceled. Discussed with the patient and the family about the options for now she wishes to proceed with surgery tomorrow we will get her on the schedule first available slot for left ureteroscopy laser of the stone or possible just left stent placement depending on her clinical status. 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 Palpitations Premature ventricular contraction Hyperlipemia Diastolic dysfunction GERD (gastroesophageal reflux disease) Essential hypertension Home Medications ?Medication ?Instructions ?Recorded ?Last Taken ?Type aspirin 325 mg tablet 325 mg PO DAILY 05/15/18 01/24/21 History coenzyme Q10 100 mg capsule (Co 100 mg PO DAILY 05/16/18 Unknown History Q-10) lactobacillus combination no.9 4 4,000 mmu cells PO DAILY 05/16/18 Unknown History billion cell capsule (Adult 50 Plus Probiotic) bismuth subsalicylate 262 mg 2 tab PO Q30-60M PRN upset stomach 07/14/19 Unknown History tablet (Pepto-Bismol) sumatriptan succinate 25 mg tablet 25 mg PO DAILY PRN migraine 07/14/19 Unknown History (Imitrex) headache losartan 50 mg tablet 50 mg PO BID 01/17/21 03/15/21 History atorvastatin 10 mg tablet 10 mg PO DAILY 10/24/21 Unknown History loperamide 2 mg capsule (Imodium 2 mg PO ONCE PRN loose stool 10/24/21 Unknown History A-D) omega-3 fatty acids-fish oil 684 1 cap PO DAILY 10/24/21 Unknown History mg-1,200 mg capsule,delayed release omeprazole 20 mg capsule,delayed 20 mg PO .COMPLEX 10/24/21 Unknown History release vitamin E 268 mg (400 unit) capsule 268 mg PO DAILY 12/21/22 Unknown History Quercetin with bromelain 2 cap PO DAILY 03/06/24 Unknown History carvedilol 12.5 mg tablet 12.5 mg PO BID 03/06/24 Unknown History cholecalciferol (vitamin D3) 25 5,000 unit PO DAILY 03/06/24 Unknown History mcg (1,000 unit) tablet ondansetron 8 mg disintegrating 8 mg PO Q8H PRN nausea and 06/08/24 Unknown Rx tablet vomiting #15 tabs oxycodone-acetaminophen 5 mg-325 1 tab PO .q4-6h PRN Pain 2 days 06/08/24 Unknown Rx mg tablet #12 TABLETS Allergy/AdvReac Type Severity Reaction Status Date / Time codeine Allergy Other Verified 03/06/24 11:35 nabumetone AdvReac Unknown Unknown Verified 03/06/24 11:35 Family History Father Myocardial infarction Sister CAD (coronary artery disease) History of coronary artery bypass surgery Mother Myocardial infarction Surgical History Status post trigger finger release History of tonsillectomy History of carpal tunnel surgery History of cataract surgery Social History Smoking Status: Never smoker alcohol intake: never substance use type: does not use caffeine: No ROS Constitutional Constitutional: Denies chills, fever(s) or malaise Eyes Eyes: Denies blurry vision or change in vision ENT HEENT: Reports none Cardiovascular Cardiovascular: Denies chest pain or palpitations Respiratory/Chest Respiratory/Chest: Denies cough or shortness of breath with exertion Gastrointestinal Gastrointestinal: Denies abdominal pain, constipation or diarrhea Musculoskeletal Musculoskeletal: Denies back pain, joint stiffness or joint swelling Integumentary Integumentary: Denies dry skin, jaundice, lesions or rash Neurologic Neurologic: Denies confusion, syncope or weakness Psychiatric Psychiatric: Reports none; Denies anxiety or depression Endocrine Endocrinology: Denies excessive sweating, fatigue or flushing Hematologic/Lymphatic Hematologic/Lymphatic: Denies anemia, easy bleeding or easy bruising Physical Exam Const alert and oriented x3 General Appearance: cooperative HEENT normocephalic and head/scalp atraumatic Eyes PERRL and EOMs intact bilaterally Neck supple, no JVD and no carotid bruits Resp normal respiratory effort, normal air movement and clear to auscultation bilaterally Cardio regular rate and no murmurs GI normal to inspection, nondistended, normoactive bowel sounds and soft to palpation Extremity normal capillary refill General Extremity: no tenderness to palpation of joints or extremities; Negative for edema Skin no rashes or lesions noted and no wounds General Skin Exam: no breakdown Neuro CN's II-XII intact bilaterally Psych affect normal Appearance: appropriate Lab / Micro Data 06/08/24 04:23 06/08/24 04:23 Labs: Laboratory Results - last 24 hr 06/08/24 04:23: WBC 9.0, RBC 4.48, Hgb 13.1, Hct 40.7, MCV 90.8, MCH 29.2, MCHC 32.2, RDW Std Deviation 41.5, RDW Coeff of Jacob 12.6, Plt Count 149 L, MPV 9.9, Immature Gran % (Auto) 0.400, Neut % (Auto) 84.5 H, Lymph % (Auto) 8.1 L, [place] % (Auto) 5.7, Eos % (Auto) 0.9, Baso % (Auto) 0.4, Absolute Neuts (auto) 7.6, A bsolute Lymphs (auto) 0.73 L, Nucleated RBC % 0, Sodium 140, Potassium 3.7, Chloride 106, Carbon Dioxide 27.0, Anion Gap 7, BUN 27 H, Creatinine 0.99, Estim Creat Clear Calc 37.18, Est GFR (MDRD) Af Amer 69, Est GFR (MDRD) Non-Af 57 L, B UN/Creatinine Ratio 27.3 H, Glucose 149 H, Calcium 9.1 06/08/24 05:57: Urine Color Yellow, Urine Clarity Clear, Urine pH 7.0, Ur Specific [place] 1.015, Urine Protein 15 H, Urine Glucose (UA) Normal, Urine Ketones Negative, Urine Occult Blood 150 H, Urine Nitrite Positive H, Urine Bilirubin Negative, Urine Urobilinogen Normal, Ur Leukocyte Esterase 25 H, Urine RBC 10-25 SEEN, Urine WBC 0-5 SEEN, Ur Squamous Epith Cells 0 SEEN, Urine Bacteria 2+, Urine Mucus 0 SEEN Imaging Radiology Impression Abdomen/Pelvis CT 06/08/24 04:40 IMPRESSION: 1. There is a 4 mm stone in the distal left ureter just proximal to the UVJ, causing mild obstructive changes. 2. Tiny nonobstructing stones in the kidneys bilaterally. Electronically Signed: Juan Ngo MD at 6:51 EST ,
[2024-06-08] MEDS: proCHLORPERazine 10 MG/2 ML Vial 5 MG IV (18:27)
[2024-06-08] MEDS: 0.9% Saline Lock 10 ML Syringe IV (18:27)
[2024-06-08] MEDS: Acetaminophen 325 MG Tablet 650 MG PO (20:32)
[2024-06-08 20:45] LABS: Bedside Glucose 113 mg/dL (74-106)
[2024-06-08] MEDS: CHLORHEXIDINE GLUC 2% CLOTH 1 EACH TOWELETTE TOPICAL (21:15)
[2024-06-08] MEDS: Norepinephrine 8 MG in 0.9% Normal Saline (250mL Bag) 242 ML 9.4 MG CONT INF (21:15)
--- NOTE | 2024-06-08 22:12 | OP.PCM_ITS ---
Operative Report (Standard) Operative Information Surgery/Procedure Performed: Cystoscopy and left stent placement Surgeon: Papa Winston Date of Procedure: 06/08/24 Procedure Start Time: 22:05 Procedure Stop Time: 22:13 Pre-Operative Diagnosis: Obstructing left ureteral calculus with sepsis and infection Post-Operative Diagnosis: Same Select all DRAINS/GRAFTS/IMPLANTS that apply: Drains Drain details: Left stent 6 x 24 Type of Anesthesia: General Estimated Blood Loss: None Specimen collected: No Description of surgery: Patient was taken back to the operating room at this with induction of anesthesia she was placed in dorsolithotomy position. The urethrovaginal area prepped and draped in usual fashion. Went into the bladder with a 21 Yi rigid cystourethroscope identified the left ureteral orifice I then cannulated the left ureteral orifice with a Glidewire got passed a stone coiled up into the left kidney over the wire then placed a stent it was a 6 Yi by 26 cm stent once in good position then the wire was removed and the kidney drained well and the stent was in good position we then put a Harley catheter in the bladder to facilitate drainage. Patient takeback to the PACU in stable condition Surgical Findings: Obstructing stone in the distal left ureter Natural Sciences Professor tube repairer: No Complications Complications: No Admit VTE Documentation VTE Present on Admission: No VTE Mechan Device Prophylaxis: SCD's VTE Pharm Prophylaxis ordered?: No
--- NOTE | 2024-06-08 22:12 | DCINST_ITS ---
Discharge Instructions Diet Discharge Diet: No restrictions Activity Discharge Activity: Return to Normal Activity and May Not Drive (while taking narcotic pain medications.) Follow Up Care Please Follow Up With: Papa Winston MD When: Call [phone] for an appointment to set up surgery for stone Test Results: Test results from this visit will be discussed in further detail at your follow- up appointment, if applicable. Discharge Plan Admission Admit Date/Time: 06/08/24 10:57 Attending Provider: Vivek Guerrero Primary Care Provider: Aparna William Consulting Providers: Papa Winston Instructions Patient Instructions: ED Kidney Stone with Pain Discharge Orders/Prescriptions Prescriptions: New oxycodone-acetaminophen 5-325 mg tablet 1 tab PO .q4-6h PRN (Reason: Pain) 2 Days Qty: 12 0RF ondansetron 8 mg tablet,disintegrating 8 mg PO Q8H PRN (Reason: nausea and vomiting) Qty: 15 0RF No Action Adult 50 Plus Probiotic 4 billion cell capsule 4,000 mmu cells PO DAILY coenzyme Q10 [Co Q-10] 100 mg capsule 100 mg PO DAILY aspirin 325 mg tablet 325 mg PO DAILY sumatriptan succinate [Imitrex] 25 mg tablet 25 mg PO DAILY PRN (Reason: migraine headache) cholecalciferol (vitamin D3) 25 mcg (1,000 unit) tablet 5,000 unit PO DAILY Pepto-Bismol 262 mg tablet 2 tab PO Q30-60M PRN (Reason: upset stomach) losartan 50 mg tablet 50 mg PO BID omeprazole 20 mg capsule,delayed release(DR/EC) 20 mg PO .COMPLEX Rx Instructions: 20 mg PO every 3rd day; atorvastatin 10 mg tablet 10 mg PO DAILY Patient Comments: TAKE ONE TABLET BY MOUTH EVERY DAY loperamide [Imodium A-D] 2 mg capsule 2 mg PO ONCE PRN (Reason: loose stool) Quercetin with bromelain 2 cap PO DAILY carvedilol 12.5 mg tablet 12.5 mg PO BID omega-3 fatty acids-fish oil 684-1,200 mg capsule,delayed release(DR/EC) 1 cap PO DAILY vitamin E 268 mg (400 unit) capsule 268 mg PO DAILY Referrals / Follow Up: Aparna William DO [Primary Care Provider] - Krystina Stokes MD [Med Staff - Active Staff] - 3-5 Days if not improving
--- NOTE | 2024-06-08 22:22 | NURSING ---
2014- This RN bedside to assess pt, pt lethargic, tachypneic and diaphoretic. Vitals taken first BP 83/43, cuff repositioned and BP rechecked, 75/42 w/ HR 106, pt febrile w/ temp of 100.4F. [employer] pathology teacher Eliane informed. Hospitalist Dr. Harris called and informed that pt was hypotensive/ febrile/ tachycardic and tachypneic, had received 2L of LR already for previously low BP and was currently getting a liter of 20meQ KCL in 0.9NS @ 150cc/hr. This RN informed him that pt does have hx of CHF and pacer. Dr. Harris informed this RN that he would like to transfer pt to ICU and start vasopressors. Instructed to contacted Dr. Winston at this time Dr. Winston informed of pt status, agreeable to transferring pt to ICU and pressors, plan to call in surgery team and place stent tonight Consent for surgery obtained by this RN w/ family at the bedside, report called to ICU and pt taken down by this RN @ 2109
--- NOTE | 2024-06-08 22:28 | NURSING ---
Addendum entered by Dayana Marrero 06/08/24 22:31: pt on levo last BP taken on ICU monitor at 2144, pt still off ICU floor at this time Original Note: 2134- pt taken off floor to surgery by this RN
--- NOTE | 2024-06-08 22:34 | PRE.ANES_ITS ---
ASA Classification* ASA Classification ASA Classification: 3 and E Assessment & Plan Anesthesia* Anesthesia Assessment Anesthesia Assessment: Discussed sedation and/or anesthesia options, risks, benefits, and alternatives with patient/parents/legal guardian/POA. Questions invited. The patient/parents/legal guardian/POA seems to understand and agrees to proceed with anesthesia plan. Reviewed the physical assessment, medical history, allergy history and patient home medications list prior to surgery/procedure/anesthetic and documented any changes. Performed airway and anesthesia risk assessments. Anesthesia Type Anesthesia Type: MAC History Source History Obtained from:: Patient and Chart Anesthesia Focused Assessment* Temperature: 99.3 F Pulse Rate: 89 Blood Pressure: 85/50 Respiratory Rate: 15 Pulse Ox: 95 Airway Assessment Mouth opens: >3 cm Mallampati Score: II Teeth Condition: Intact Neck Range of motion (ROM): Full ROM Focused Labs Anesthesia Preop lab: CBC WBC 9.0 K/mm3 (4.4-11.0) 06/08/24 04:23 RBC 4.48 M/mm3 (4.2-5.4) 06/08/24 04:23 Hgb 13.1 g/dL (12.0-15.0) 06/08/24 04:23 Hct 40.7 % (37-47) 06/08/24 04:23 Plt Count 149 K/mm3 (150-450) L 06/08/24 04:23 CHEMISTRY Potassium 3.7 mmol/L (3.5-5.1) 06/08/24 04:23 Sodium 140 mmol/L (136-145) 06/08/24 04:23 Magnesium 2.2 mg/dL (1.6-2.6) 03/06/24 11:59 BUN 27 mg/dL (7-18) H 06/08/24 04:23 Creatinine 0.99 mg/dL (0.55-1.02) 06/08/24 04:23 Glucose 149 mg/dL (74-106) H 06/08/24 04:23 POC Glucose 113 mg/dL (74-106) H 06/08/24 20:26 COAG PT 12.2 SECONDS (11.7-14.9) 01/17/21 13:03 Pre-Assessment Diagnosis/Proposed Procedure Planned Operative Procedure(s): Cysto, stent, L Anesthesia History Anesthesia History - alliances consultant: Anesthesia History - alliances consultant Hx Hospitalization Yes 10/07/18 06:58 Any Problems With Anesthesia Cholinesterase deficiency You/Your Family Experience No 10/07/18 06:58 fever (hyperthermia) with Relationship Recent Exposure to Contagious Disease Does patient have nerve stimulator Patient instructed to have device shut off --Does patient have Pacemaker or ICD? When Was Last Pacemaker Check QUESTION #4 FULL TEXT: You/Your Family Experience fever (hyperthermia) with Anesthesia Any additional information?: Yes Any Problems With Anesthesia: No Cholinesterase deficiency: No You/your family experience fever (hyperthermia) with anesthesia: No --Does patient have Pacemaker or ICD?: Yes When Was Last Pacemaker Check: Last month Last Oral Intake Last Oral intake: Last Oral Intake NPO since Meds taken in AM with sips of water? Meds patient instructed to take am of surgery Any additional information?: Yes NPO since: 00:00 (Ate last evening. Vomitting intermittently since. ) Meds taken in AM with sips of water?: No Meds patient instructed to take am of surgery: None PONV PONV - alliances consultant: PONV - alliances consultant Female HX of Motion Sickness HX of N/V After Surgery Non-Smoker Duration of Surgery greater than 60 minutes Number of Risk Factors PONV Score Height & Weight Height & Weight: Anesthesia: Height & Weight Height 5 ft 4 in 06/08/24 12:14 Weight: 56.047 kg 06/08/24 12:14 Body Mass Index (BMI) 21.2 06/08/24 12:14 Respiratory Assessment Respiratory Assessment - alliances consultant: Respiratory Tract Infection Hx - alliances consultant Hx Respiratory Tract Infection STOP Sleep Apnea STOP Sleep Apnea - alliances consultant: STOP Sleep Apnea - alliances consultant Hx Hypertension Yes 06/08/24 12:14 Hx Sleep Apnea No 06/08/24 12:14 CPAP BIPAP Do you snore loudly (louder No 06/08/24 12:14 than talking or can be heard Do you often feel tired/ No 06/08/24 12:14 fatigued/ sleepy during daytime? Has anyone observed you stop No 06/08/24 12:14 breathing during sleep? STOP Results Negative 06/08/24 12:14 QUESTION #5 FULL TEXT : Do you snore loudly (louder than talking or can be heard through closed doors)? 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 Specify any problems Hx of Preganancy in last 3 No 06/08/24 12:14 Months Nurse Filling Out Transfusion TCLEVIDEN 06/08/24 12:14 & Questions: Date: 06/08/24 06/08/24 12:14 Time: 12:22 06/08/24 12:14 Patient unable to answer at this time (ie. confused, unrespo /Reproduction History /Reproductive History - alliances consultant: /Reproductive Hx- alliances consultant Hx Now Gestational Age (in weeks): EDC: Hx Hx Para Hx Section SAB Active Medications Active Medications: Current Medications Generic Name Dose Route Start Last Admin Trade Name Freq PRN Reason Stop Dose Admin Acetaminophen 650 mg 06/08/24 12:03 06/08/24 20:32 Acetaminophen 325 Mg Tablet PO 650 mg Q6H PRN PRN Administration Pain 1-10 Or Fever >100.7 Al Hydroxide/Mg Hydroxide 15 ml 06/08/24 14:04 Mag Hydrox/Al Hydrox/Simeth 30 Ml Udc PO Q6H PRN PRN HEART BURN Aspirin 325 mg 06/09/24 08:00 Aspirin 325 Mg [facility] Atorvastatin Calcium 10 mg 06/09/24 10:00 Atorvastatin Calcium 10 Mg Tablet PO DAILY [facility] Chlorhexidine Gluconate 1 each 06/08/24 21:30 Chlorhexidine Gluc 2% Cloth 1 Each Towelette TOPICAL DAILY [facility] Cholecalciferol 125 mcg 06/09/24 10:00 Cholecalciferol (Vit D3) 125 Mcg Capsule (5,000 Units) PO DAILY [facility] Enoxaparin Sodium 40 mg 06/08/24 12:03 06/08/24 12:36 Enoxaparin 40 Mg/0.4 Ml Syringe SC 40 mg Q24H WENDY Administration Ceftriaxone Sodium 1 gm in 50 mls @ 100 mls/hr 06/09/24 10:00 Rocephin IV Q24 [facility] Potassium Chloride/Sodium Chloride 20 meq in 1,000 mls @ 150 mls/hr 06/08/24 12:03 06/08/24 15:27 IV 06/09/24 01:37 150 mls/hr .Q6H40M [facility] Infusion Protocol Sodium Chloride 500 mls @ 15 mls/hr 06/08/24 12:17 IV .[id number] PRN Saline Flush Sodium Chloride 500 mls @ 15 mls/hr 06/08/24 12:17 IV .[id number] PRN Additional IVPB Infusion Norepinephrine Bitartrate 8 mg 250 mls @ 9.375 mls/hr 06/08/24 20:40 06/08/24 21:30 / Sodium Chloride CONT INF 10 mcg/min .[id number] [facility] 18.8 mls/hr Titration Protocol 5 MCG/MIN Nitroglycerin 0.4 mg 06/08/24 12:03 Nitroglycerin (Inpatient Use) 0.4 Mg Tab.Subl SL Q5M PRN CARDIAC/CHEST PAIN Pantoprazole Sodium 20 mg 06/09/24 10:00 Pantoprazole Sodium 20 Mg Tablet PO Q3D@1000 [facility] Prochlorperazine Edisylate 5 mg 06/08/24 12:03 06/08/24 18:27 Prochlorperazine 10 Mg/2 Ml Vial IV 5 mg Q4H PRN PRN Administration Breakthrough nausea/vomiting Rizatriptan Benzoate 5 mg 06/08/24 14:12 Rizatriptan Benzoate 5 Mg Tablet PO DAILY PRN migraine headache Senna/Docusate Sodium 2 tablet 06/08/24 12:03 Senna/Docusate Sodium 1 Tablet PO BID PRN PRN Constipation Sodium Chloride 10 - 40 ml 06/08/24 12:17 06/08/24 18:27 0.9% Saline Lock 10 Ml Syringe IV 10 ml UD PRN Administration [facility] Medical History Presence of permanent cardiac pacemaker (~01/24/21) Sinus pause Syncope and collapse 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 Palpitations Premature ventricular contraction Hyperlipemia Diastolic dysfunction GERD (gastroesophageal reflux disease) Essential hypertension Home Medications ?Medication ?Instructions ?Recorded ?Last Taken ?Type aspirin 325 mg tablet 325 mg PO DAILY 05/15/18 01/24/21 History coenzyme Q10 100 mg capsule (Co 100 mg PO DAILY 05/16/18 Unknown History Q-10) lactobacillus combination no.9 4 4,000 mmu cells PO DAILY 05/16/18 Unknown History billion cell capsule (Adult 50 Plus Probiotic) bismuth subsalicylate 262 mg 2 tab PO Q30-60M PRN upset stomach 07/14/19 Unknown History tablet (Pepto-Bismol) sumatriptan succinate 25 mg tablet 25 mg PO DAILY PRN migraine 07/14/19 Unknown History (Imitrex) headache losartan 50 mg tablet 50 mg PO BID 01/17/21 03/15/21 History atorvastatin 10 mg tablet 10 mg PO DAILY 10/24/21 Unknown History loperamide 2 mg capsule (Imodium 2 mg PO ONCE PRN loose stool 10/24/21 Unknown History A-D) omega-3 fatty acids-fish oil 684 1 cap PO DAILY 10/24/21 Unknown History mg-1,200 mg capsule,delayed release omeprazole 20 mg capsule,delayed 20 mg PO .COMPLEX 10/24/21 Unknown History release vitamin E 268 mg (400 unit) capsule 268 mg PO DAILY 12/21/22 Unknown History Quercetin with bromelain 2 cap PO DAILY 03/06/24 Unknown History carvedilol 12.5 mg tablet 12.5 mg PO BID 03/06/24 Unknown History cholecalciferol (vitamin D3) 25 5,000 unit PO DAILY 03/06/24 Unknown History mcg (1,000 unit) tablet ondansetron 8 mg disintegrating 8 mg PO Q8H PRN nausea and 06/08/24 Unknown Rx tablet vomiting #15 tabs oxycodone-acetaminophen 5 mg-325 1 tab PO .q4-6h PRN Pain 2 days 06/08/24 Unknown Rx mg tablet #12 TABLETS Allergy/AdvReac Type Severity Reaction Status Date / Time codeine Allergy Other Verified 03/06/24 11:35 nabumetone AdvReac Unknown Unknown Verified 03/06/24 11:35 Family History Father Myocardial infarction Sister CAD (coronary artery disease) History of coronary artery bypass surgery Mother Myocardial infarction Surgical History Status post trigger finger release History of tonsillectomy History of carpal tunnel surgery History of cataract surgery Social History Smoking Status: Never smoker alcohol intake: never substance use type: does not use caffeine: No Prior Cardiac Testing/Procedures Prior Cardiac Testing/Procedures: Echocardiogram Review of Systems (Anesthesia) ROS Narrative System reviewed and no additional complaints, except as documented. Constitutional Constitutional: Denies chills, fever(s) or malaise Eyes Eyes: Denies blurry vision, change in vision or diplopia ENT HEENT: Reports none; Denies rhinorrhea or sore throat Cardiovascular Cardiovascular: Denies chest pain or palpitations Respiratory/Chest Respiratory/Chest: Denies cough, dyspnea or shortness of breath with exertion Gastrointestinal Gastrointestinal: Reports nausea and vomiting; Denies abdominal pain, constipation or diarrhea Genitourinary Genitourinary: Reports flank pain; Denies dysuria or hematuria Musculoskeletal Musculoskeletal: Denies back pain, joint stiffness, joint swelling or neck pain Integumentary Integumentary: Denies dry skin, jaundice, lesions or rash Neurologic Neurologic: Denies confusion, headache(s), paresthesias, syncope or weakness Psychiatric Psychiatric: Reports none; Denies anxiety, depression or suicidal thoughts Endocrine Endocrinology: Denies excessive sweating, fatigue or flushing Hematologic/Lymphatic Hematologic/Lymphatic: Denies anemia, easy bleeding or easy bruising
--- NOTE | 2024-06-08 23:02 | NURSING ---
2300- Surgery RN called report to this RN, last BP 88/47, anesthesiologist refused to place central line, pt remains on 10mcg of levo 230- Pt returned from surgery to ICU, levo noted to be running at 12mcg, not charted in MAR by surgery
[2024-06-09] VITALS (44 sets, daily range): BP systolic 77–158; BP diastolic 47–121; PULSE 64–92; RESP 13–24; TEMP 36.1–37.4; O2SAT 91–100; BMI 22.2
--- NOTE | 2024-06-09 00:14 | PCM.POST.ANE ---
Anesthesia: Postop Eval I Current Vital Signs Temperature: 99.3 F Pulse Rate: 92 Blood Pressure: 88/47 Respiratory Rate: 18 Pulse Ox: 98 Oxygen Delivery Method: Nasal Cannula Oxygen Flow Rate (L/min): 4 Assessment Airway patent: Yes Spontaneous unlabored respirations: Yes Mental status: Awake and Calm nausea: No Vomiting: No Anesthesia Complication: No Fluid Hydration Crystalloid volume administer (ml): 30 Total IV fluid infused: 30 Progress Note Anesthesia document: Postop Eval 1 completed: Yes
[2024-06-09] MEDS: Albumin Human 25% (100 mL) 25 GM/100 ML BAG IV (00:21)
[2024-06-09 04:37] LABS: Absolute Lymphocyte Count 1.18 X10^3/uL (0.83-4.51); Basophil% 0.5 % (0-1); Eosinophil# 0.05 X10^3/uL; Eosinophils% 0.3 % (0-5); Hematocrit 37.9 % (37-47); Hemoglobin 12.2 g/dL (12.0-15.0); Lymphocyte # 1.18 X10^3/ul (0.83-4.51); Lymphocyte % 6.2 % (19-41); Mean Corp Hgb Conc 32.2 g/dL (32-36); Mean Corpuscular Hgb 29.4 pg (27.0-32.0); Mean Corpuscular Volume 91.3 fL (81-99); Mean Platelet Vol. 10.3 fl (6.2-12.0); Monocyte# 0.45 X10^3/uL; Monocyte% 2.3 % (0-10); NRBC Flagged by Analyzer 0 % (0-5); Neutrophil # 17.02 X10^3/uL (2.7-7.7); Neutrophil % 88.8 % (47-70); POSITIVE COUNT YES; POSITIVE MORPHOLOGY YES; Platelet Count 71 K/mm3 (150-450); RBC Distribution Width CV 13.2 % (11.6-14.6); RBC Distribution Width SD 44.5 fl (35.1-43.9); Red Blood Count 4.15 M/mm3 (4.2-5.4); White Blood Count 19.2 K/mm3 (4.4-11.0)
--- NOTE | 2024-06-09 04:44 | NURSING ---
0330- consent previously obtained for central line placement by patient POA while pt was in surgery. Pt A+Ox3 now and agreeable to central line placement for high dose levophed. Dr. Harris to bedside/ signed consent. Central line placement attempts failed, directed by Dr. Harris to place an order for PICC.
[2024-06-09 05:09] LABS: Differential Indicated SCAN CRITERIA MET
[2024-06-09 05:14] LABS: Anion Gap 9 (5-15); BUN 43 mg/dL (7-18); BUN/Creat Ratio 19.4 RATIO (10-20); Calcium,Total 7.9 mg/dL (8.5-10.1); Chloride 105 mmol/L (98-107); Creatinine, Serum 2.22 mg/dL (0.55-1.02); EST Glomerular Filtration Rate 22 mL/min (>60); Est Glom Filt Rate - Afr Amer 27 mL/min (>60); Estimated Creatinine Clearance 16.58 ml/min; Glucose 108 mg/dL (74-106); Potassium 4.5 mmol/L (3.5-5.1); Sodium Level 136 mmol/L (136-145)
--- NOTE | 2024-06-09 06:06 | CON.PCM.CC_ITS ---
HPI Consult Data Date of Consult: 06/09/24 HPI Narrative Reason for Consultation: Septic Shock HPI Narrative: This is a 83y/o F admitted to the ICU for septic Shock. She has history of tachy-rell s/p pacemaker, HTN, DD. She presented 06/08 for right flank pain and was found to have UTI, and ureteral stone. She was taken for cystoscopy and left ureteral stent placement. THroughout the night she has had hypotension requiring vasopressor support. Currently she reports pain is well controlled. She has had minimal urine output overnight. Currently on Levophed @ [facility] [place]. 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 Palpitations Premature ventricular contraction Hyperlipemia Diastolic dysfunction GERD (gastroesophageal reflux disease) Essential hypertension Home Medications ?Medication ?Instructions ?Recorded ?Last Taken ?Type aspirin 325 mg tablet 325 mg PO DAILY 05/15/18 01/24/21 History coenzyme Q10 100 mg capsule (Co 100 mg PO DAILY 05/16/18 Unknown History Q-10) lactobacillus combination no.9 4 4,000 mmu cells PO DAILY 05/16/18 Unknown History billion cell capsule (Adult 50 Plus Probiotic) bismuth subsalicylate 262 mg 2 tab PO Q30-60M PRN upset stomach 07/14/19 Unknown History tablet (Pepto-Bismol) sumatriptan succinate 25 mg tablet 25 mg PO DAILY PRN migraine 07/14/19 Unknown History (Imitrex) headache losartan 50 mg tablet 50 mg PO BID 01/17/21 03/15/21 History atorvastatin 10 mg tablet 10 mg PO DAILY 10/24/21 Unknown History loperamide 2 mg capsule (Imodium 2 mg PO ONCE PRN loose stool 10/24/21 Unknown History A-D) omega-3 fatty acids-fish oil 684 1 cap PO DAILY 10/24/21 Unknown History mg-1,200 mg capsule,delayed release omeprazole 20 mg capsule,delayed 20 mg PO .COMPLEX 10/24/21 Unknown History release vitamin E 268 mg (400 unit) capsule 268 mg PO DAILY 12/21/22 Unknown History Quercetin with bromelain 2 cap PO DAILY 03/06/24 Unknown History carvedilol 12.5 mg tablet 12.5 mg PO BID 03/06/24 Unknown History cholecalciferol (vitamin D3) 25 5,000 unit PO DAILY 03/06/24 Unknown History mcg (1,000 unit) tablet ondansetron 8 mg disintegrating 8 mg PO Q8H PRN nausea and 06/08/24 Unknown Rx tablet vomiting #15 tabs oxycodone-acetaminophen 5 mg-325 1 tab PO .q4-6h PRN Pain 2 days 06/08/24 Unknown Rx mg tablet #12 TABLETS Allergy/AdvReac Type Severity Reaction Status Date / Time codeine Allergy Other Verified 03/06/24 11:35 nabumetone AdvReac Unknown Unknown Verified 03/06/24 11:35 Family History Father Myocardial infarction Sister CAD (coronary artery disease) History of coronary artery bypass surgery Mother Myocardial infarction Surgical History Status post trigger finger release History of tonsillectomy History of carpal tunnel surgery History of cataract surgery Social History Smoking Status: Never smoker alcohol intake: never substance use type: does not use caffeine: No ROS ROS Narrative Negative except per HPI Objective Data Objective Data Vital Signs: Vital Signs Last response 3 Temperature 36.5 C L 06/09/24 05:15 Temperature Source Oral 06/09/24 05:15 Pulse Rate 77 06/09/24 05:15 Pulse Strength Normal (2+) 06/08/24 22:00 Respiratory Rate 16 06/09/24 05:15 Respiratory Effort Normal, Non-Labored 06/09/24 04:00 Respiratory Depth Normal 06/09/24 04:00 Respiratory Pattern Normal 06/09/24 04:00 Blood Pressure 100/58 L 06/09/24 05:15 Blood Pressure Mean 72 06/09/24 05:15 Blood Pressure Source Monitor 06/09/24 05:00 Blood Pressure Position Semi-Fowlers 06/09/24 05:00 Blood Pressure Location Right Arm 06/09/24 05:00 Baseline BP 84/42 06/08/24 22:52 Pulse Ox 98 06/09/24 05:15 Oxygen Delivery Method Nasal Cannula 06/09/24 05:15 Oxygen Flow Rate (L/min) 3 06/09/24 05:15 I&O: I&O Last 24 Hours 3 06/08/24 06/08/24 06/09/24 11:59 23:59 11:59 Intake Total 3347.13 / 3352.76 227.16 / 227.16 Output Total 560 / 595 35 / 35 Balance 2787.13 / 2757.76 192.16 / 192.16 I&O: Total Stay 3 06/08/24 04:10 thru 06/09/24 05:00 Intake Total 3574.29 Output Total 595 Balance 2979.29 Current Meds Ordered / Administered: Current meds ordered / Administered 3 Generic Name Dose Route Start Last Admin Trade Name Freq PRN Reason Stop Dose Admin Acetaminophen 650 mg 06/08/24 12:03 06/08/24 20:32 Acetaminophen 325 Mg Tablet PO 650 mg Q6H PRN PRN Administration Pain 1-10 Or Fever >100.7 Al Hydroxide/Mg Hydroxide 15 ml 06/08/24 14:04 Mag Hydrox/Al Hydrox/Simeth 30 Ml Udc PO Q6H PRN PRN HEART BURN Aspirin 325 mg 06/09/24 08:00 [facility] Atorvastatin Calcium 10 mg 06/09/24 10:00 Atorvastatin Calcium 10 Mg Tablet PO DAILY [facility] Chlorhexidine Gluconate 1 each 06/08/24 21:30 06/08/24 21:15 Chlorhexidine Gluc 2% Cloth 1 Each Towelette TOPICAL 1 each DAILY [facility] Administration Cholecalciferol 125 mcg 06/09/24 10:00 Cholecalciferol (Vit D3) 125 Mcg Capsule (5,000 Units) PO DAILY [facility] Enoxaparin Sodium 40 mg 06/08/24 12:03 06/08/24 12:36 Enoxaparin 40 Mg/0.4 Ml Syringe SC 40 mg Q24H WENDY Administration Hydrocortisone Sodium Succinate 100 mg 06/09/24 06:05 Hydrocortisone Sod Succinate 100 Mg/2 Ml Vial IV Q8 [facility] Potassium Chloride/Sodium Chloride 20 meq in 1,000 mls @ 150 mls/hr 06/08/24 12:03 06/08/24 21:09 IV 06/09/24 01:37 Infused .Q6H40M [facility] Infusion Protocol Sodium Chloride 500 mls @ 15 mls/hr 06/08/24 12:17 IV .[id number] PRN Saline Flush Sodium Chloride 500 mls @ 15 mls/hr 06/08/24 12:17 IV .[id number] PRN Additional IVPB Infusion Norepinephrine Bitartrate 8 mg 250 mls @ 9.375 mls/hr 06/08/24 20:40 06/09/24 05:00 / Sodium Chloride CONT INF 13 mcg/min .[id number] WENDY 24.4 mls/hr Titration Protocol 5 MCG/MIN Albumin Human 25 gm in 100 mls @ 60 mls/hr 06/08/24 23:53 06/09/24 02:02 IV 06/09/24 01:32 Infused X1 ONE Infusion Vasopressin 20 units/ Sodium 25 mls @ 3 mls/hr 06/09/24 06:05 Chloride CONT INF .Q8H20M WENDY 0.04 UNITS/MIN Nitroglycerin 0.4 mg 06/08/24 12:03 Nitroglycerin (Inpatient Use) 0.4 Mg Tab.Subl SL Q5M PRN CARDIAC/CHEST PAIN Pantoprazole Sodium 20 mg 06/09/24 10:00 Pantoprazole Sodium 20 Mg Tablet PO Q3D@1000 [facility] Prochlorperazine Edisylate 5 mg 06/08/24 12:03 06/08/24 18:27 Prochlorperazine 10 Mg/2 Ml Vial IV 5 mg Q4H PRN PRN Administration Breakthrough nausea/vomiting Rizatriptan Benzoate 5 mg 06/08/24 14:12 Rizatriptan Benzoate 5 Mg Tablet PO DAILY PRN migraine headache Senna/Docusate Sodium 2 tablet 06/08/24 12:03 Senna/Docusate Sodium 1 Tablet PO BID PRN PRN Constipation Sodium Chloride 10 - 40 ml 06/08/24 12:17 06/08/24 18:27 0.9% Saline Lock 10 Ml Syringe IV 10 ml UD PRN Administration SALINE FLUSH Physical Exam Narrative Gen: Alert and oriented, family at bedside Eyes: PERRL ENT: MMM CV: S1S2 Pulm: CTAB, diminished on 3 L NC Abd: Soft/nt/nd Extrem: No c/c/e Lab / Micro Data 06/09/24 04:30 06/09/24 04:30 Labs: Laboratory Results - last 24 hr 06/08/24 05:57: Urine Color Yellow, Urine Clarity Clear, Urine pH 7.0, Ur Specific [place] 1.015, Urine Protein 15 H, Urine Glucose (UA) Normal, Urine Ketones Negative, Urine Occult Blood 150 H, Urine Nitrite Positive H, Urine Bilirubin Negative, Urine Urobilinogen Normal, Ur Leukocyte Esterase 25 H, Urine RBC 10-25 SEEN, Urine WBC 0-5 SEEN, Ur Squamous Epith Cells 0 SEEN, Urine Bacteria 2+, Urine Mucus 0 SEEN 06/08/24 20:26: POC Glucose 113 H 06/09/24 04:30: WBC 19.2 H, RBC 4.15 L, Hgb 12.2, Hct 37.9, MCV 91.3, MCH 29.4, MCHC 32.2, RDW Std Deviation 44.5 H, RDW Coeff of Jacob 13.2, Plt Count 71 L, MPV 10.3, Immature Gran % (Auto) 1.900 H, Neut % (Auto) 88.8 H, Lymph % (Auto) 6.2 L , [place] % (Auto) 2.3, Eos % (Auto) 0.3, Baso % (Auto) 0.5, Absolute Neuts (auto) 17.0 H, Absolute Lymphs (auto) 1.18, Nucleated RBC % 0, Sodium 136, Potassium 4.5, Chloride 105, Carbon Dioxide 22.0, Anion Gap 9, BUN 43 H, Creatinine 2.22 H , Estim Creat Clear Calc 16.58, Est GFR (MDRD) Af Amer 27 L, Est GFR (MDRD) Non- Af 22 L, BUN/Creatinine Ratio 19.4, Glucose 108 H, Calcium 7.9 L Imaging Radiology Impression Abdomen/Pelvis CT 06/08/24 04:40 IMPRESSION: 1. There is a 4 mm stone in the distal left ureter just proximal to the UVJ, causing mild obstructive changes. 2. Tiny nonobstructing stones in the kidneys bilaterally. Electronically Signed: Juan Ngo MD at 6:51 EST , Assessment and Plan . Assessment and plan: ASSESSMENT: #Septic Shock #UTI #Ureteral Stone s/p stent placement #DASHA #Hypoxia #H/O Tachy-rell s/p pacemaker PLAN: -Additional IVF bolus -Add Vasopressin to Levophed -Stress dose steroids -Ceftriaxone->Cefepime -Follow renal panel and urine output -Supplemental O2 to keep Sat >92% -Pending central access PPX: Lovenox Critical Care Time: 60 min The entirety of this encounter was done via Telemedicine
[2024-06-09 06:11] LABS: Differential Comment SCANNED; Platelet Estimate MOD DEC (ADEQ)
--- NOTE | 2024-06-09 06:34 | PCM.HOSP.N ---
Hospitalist Note I was contacted by LAND ACQUISITION ANALYST and informed patient needed central venous catheter due to pressor agents. Consent was obtained and patient was prepped and draped in sterile fashion. Ultrasound guidance was used to identify vessel. Local anesthesia was provided with 1% lidocaine to the surrounding area of the Right groin. In spite of us concerted effort line was unable to be placed. EBL ~5 cc. Patient was then ordered a PICC line to be placed in the a.m. LAND ACQUISITION ANALYST was updated with plan.
[2024-06-09] MEDS: 0.9% Saline Lock 10 ML Syringe IV (06:37)
[2024-06-09] MEDS: Lactated Ringers 1,000 ML 999 ML IV (06:38)
[2024-06-09] MEDS: Hydrocortisone Sod Succinate 100 MG/2 ML Vial IV ×3 (06:38→20:19)
[2024-06-09] MEDS: Cefepime HCl 1 GM in 0.9% Normal Saline (50mL MB+) 50 ML IV (06:39)
[2024-06-09] MEDS: Acetaminophen 325 MG Tablet 650 MG PO (06:48)
[2024-06-09 06:52] LABS: Ionized Calcium 4.58 mg/dL (4.36-5.20)
--- NOTE | 2024-06-09 07:33 | PCM.CONS.B ---
Consult Date of Consult: 06/09/24 Reason for Consult s/p emergency stent last night for sepsis doing better, BP is improving on some Levo still in ICU but stable.
[2024-06-09] MEDS: Norepinephrine 8 MG in 0.9% Normal Saline (250mL Bag) 242 ML 9.4 MG CONT INF (08:35)
[2024-06-09] MEDS: Aspirin 325 MG Tablet PO (08:55)
[2024-06-09] MEDS: Cholecalciferol (Vit D3) 125 MCG CAPSULE (5,000 UNITS) PO (08:55)
[2024-06-09] MEDS: Pantoprazole Sodium 20 MG Tablet PO (08:55)
[2024-06-09] MEDS: Atorvastatin Calcium 10 MG Tablet PO (08:56)
--- NOTE | 2024-06-09 09:59 | PN.HOSP_ITS ---
Subjective Subjective Doing well, no issues overnight. Still on Levophed but this is being titrated down Objective Data Objective Data Vital Signs: Vital Signs Temp Pulse Resp BP Pulse Ox O2 Del Method O2 Flow Rate 96.9 F L 85 16 94/56 L 91 Room Air 3 06/09/24 09:03 06/09/24 09:03 06/09/24 09:03 06/09/24 09:30 06/09/24 09:03 06/09/24 09:03 06/09/24 07:00 Oxygen Flow Rate (L/min) 3 Oxygen Delivery Method Room Air Weight: 129 lb 10.109 oz Body Mass Index (BMI) 22.2 Intake & Output: Intake and Output for Last 24 Hours 06/08/24 06/09/24 06/10/24 03:59 03:59 03:59 Intake Total 3525.49 / 3549.89 1180.03 / 1180.03 Output Total 595 / 595 100 / 100 Balance 2930.49 / 2954.89 1080.03 / 1080.03 Lab / Micro Data 06/09/24 04:30 06/09/24 04:30 Labs: Laboratory Results - last 24 hr 06/08/24 20:26: POC Glucose 113 H 06/09/24 04:30: WBC 19.2 H, RBC 4.15 L, Hgb 12.2, Hct 37.9, MCV 91.3, MCH 29.4, MCHC 32.2, RDW Std Deviation 44.5 H, RDW Coeff of Jacob 13.2, Plt Count 71 L, MPV 10.3, Immature Gran % (Auto) 1.900 H, Neut % (Auto) 88.8 H, Lymph % (Auto) 6.2 L , Geary % (Auto) 2.3, Eos % (Auto) 0.3, Baso % (Auto) 0.5, Absolute Neuts (auto) 17.0 H, Absolute Lymphs (auto) 1.18, Nucleated RBC % 0, Differential Comment SCANNED, Platelet Estimate MOD DEC, Sodium 136, Potassium 4.5, Chloride 105, Carbon Dioxide 22.0, Anion Gap 9, BUN 43 H, Creatinine 2.22 H, Estim Creat Clear Calc 16.58, Est GFR (MDRD) Af Amer 27 L, Est GFR (MDRD) Non-Af 22 L, BUN/Creatinine Ratio 19.4, Glucose 108 H, Calcium 7.9 L 06/09/24 06:46: Ionized Calcium 4.58 Physical Exam Narrative General: Alert, Oriented x3, Cooperative, No apparent distress HEENT: Atraumatic, PERRLA, EOMI, Normocephalic Oral: Moist Mucosa Neck: Supple, No JVD Lungs: Diminished, Normal air movement, No rhonchi, No wheeze, No rales Cardiovascular: Regular rate, Regular Rhythm, Normal S1, Normal S2, No murmurs Abdomen: Soft, Non Tender, Non-Distended, No Hepato-splenomegaly Extremities: No edema, Capillary Refill Less than 3 Seconds Skin: No rashes, No breakdown Musculoskeletal: No Tenderness to Palpation of Joints or Extremities Neurological: No focal neurological deficits, Motor Exam 5/5 strength throughout, Sensory exam intact to light touch and pain Psych/Mental Status: Normal Affect, Appropriate Assessment & Plan Assessment/Plan (1) Ureteral colic: (2) Hypotension: QUALIFIERS: Hypotension type: unspecified hypotension type Q ualified Code(s): I95.9 - Hypotension, unspecified PLAN: Plan 1. Left LLQ pain and ureteric colic from left UVJ stone: Patient is being admitted send floor. Abdomen/pelvis CT reviewed shows 4 m stone in distal left ureter just proximal to UVJ causing mild obstructive changes. Patient is started on IV ceftriaxone. She does not have low intact symptoms but has mild obstructive changes on CT scan. I consulted urologist Dr. Winston and discussed with him. Plan for possible cystoscopy tomorrow 06/09/2024: Cystoscopy was done yesterday with a stent placed in the left ureter. She is feeling much better urine cultures are still pending. Will continue with cefepime. Pressor support is decreasing, tachycardia and tachypnea resolved fairly quickly on admission white count was normal though it has spiked today and I think this is likely secondary to the cystoscopy with a stent placement not clear that there is any septic component at this time UA was not significantly convincing for an infection though we will continue with cefepime 2. Hypotension most likely due to vomiting and dehydration: Although BP was normal to high in ED but on floor, in afternoon, BP was 85/46. Patient was feeling dizzy and lightheaded on standing up. 1 L of RL given and then continue normal saline 150 mL/h for 2 more liter. Monitor blood pressure. I do not think patient is septic as she does not look very sick or febrile and labs did not support that 06/09/2024: Will hold off pack as Levophed requirement is decreasing. 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 Cardiology disease: Sick sinus syndrome/tachybradycardia syndrome status post pacemaker, chronic HFpEF and PVC: Patient follows Dr. Mosley. She does not have acute chest pain shortness of breath or syncope or palpitation. Last echo as reported below Echo 03/11/2020 Interpretation Summary Normal LV size. Left ventricular systolic function is normal. The left ventricular ejection fraction is 65 %. Stage 1 diastolic dysfunction. ICD or pacer leads identified within the right ventricle. 4. Hypertension and dyslipidemia: As mentioned above. Hold antihypertensive medication. Statin continued 5. GERD: On PPI continued. DVT: Lovenox Charges/Coding Visit Charges Inpatient E&M: 37917 Subs Hosp L2
--- NOTE | 2024-06-09 10:13 | CASEMGMT ---
MARY VILCHIS Assessment Face to Face with patient for initial transition planning/care coordination assessment. RN MAME introduced self and role at [facility], pt voices understanding. Pt is A&Ox4 and is resting comfortably in bed and is calm. Care providers, pharmacy, and demographics verified. Admitting dx: Left UV Junction Obstruction LACE Strata: 2 PCP: Aparna William Specialists: SAV[facility] Preferred Pharmacy: [facility] Insurance: [facility] A/B, [employer] Prescription Benefit: Pt states that the [employer] reimburses her at times. Pt was also educated about free services such as [facility] LNOK: Dexter Michaeljhonny (Son), Mary Alice Rosales (Francisca) Living Arrangements: Pt lives alone in a single story home with a basement with handrails and one small step to enter the home ADLs/IADLs: Reports independent Transportation: Self, Family. Denies concerns DME: BGM with sufficient supplies. BP Monitor, Pulse ox, grab bars. denies further concerns or needs HHC/SNF: Denies history or needs Pt?s goal: Home Plan: Anticipate home no needs. At this time, the pt denies the need for HH, OP Tx, CCN/Pt Link. Pt states that she feels safe returning home alone once medically ready. However, PT is ordered and pending. CM to continue to follow. Delphine Rosales RN, CM
[2024-06-09] MEDS: Enoxaparin 30 MG/0.3 ML Syringe SC (10:54)
[2024-06-09] MEDS: Midodrine HCl 5 MG Tablet 10 MG PO ×2 (10:54→16:11)
[2024-06-09 11:01] LABS: Anion Gap 8 (5-15); BUN 39 mg/dL (7-18); BUN/Creat Ratio 22.5 RATIO (10-20); Calcium,Total 6.7 mg/dL (8.5-10.1); Chloride 114 mmol/L (98-107); Creatinine, Serum 1.73 mg/dL (0.55-1.02); EST Glomerular Filtration Rate 30 mL/min (>60); Est Glom Filt Rate - Afr Amer 36 mL/min (>60); Estimated Creatinine Clearance 21.28 ml/min; Glucose 87 mg/dL (74-106); Potassium 3.7 mmol/L (3.5-5.1); Sodium Level 141 mmol/L (136-145)
--- NOTE | 2024-06-09 15:06 | POSTOPAN2_ITS ---
Anesthesia Postop Eval I Sum Postop Eval Completion status Anesthesia document: Postop Eval 1 completed: Yes Anesthesia Postop Eval I Summary Anesthesia Postop Eval I Summary: Anesthesia Postop Eval I: Assessment Summary Airway patent Yes 06/09/24 00:15 OUTSIDE INSTALLATION MACHINIST.[email or web address] Spontaneous unlabored Yes 06/09/24 00:15 OUTSIDE INSTALLATION MACHINIST.HAILE respirations Mental status Awake,Calm 06/09/24 00:15 OUTSIDE INSTALLATION MACHINIST.[email or web address] nausea No 06/09/24 00:15 OUTSIDE INSTALLATION MACHINIST.CHRISTOPHLOU Vomiting No 06/09/24 00:15 OUTSIDE INSTALLATION MACHINIST.CHRISTOPHLOChuck Anesthesia Postop Eval I: Fluid Summary Crystalloid volume administer 30 06/09/24 00:15 OUTSIDE INSTALLATION MACHINIST.CHRISTOPHLOU (ml) Colloids volume administered ( ml) Blood Product volume administered (ml) Total IV fluid infused 30 06/09/24 00:15 OUTSIDE INSTALLATION MACHINIST.HAILE Anesthesia Postop Eval I: Summary Notes Anesthesia Complication No 06/09/24 00:15 OUTSIDE INSTALLATION MACHINIST.HAILE Anesthesia Complication Comment: Post-operative progress note Anesthesia: Postop Eval II Evaluation Mental status: Awake and Calm Pain Level: 1 nausea: No Vomiting: No
--- NOTE | 2024-06-09 15:06 | PCM.POSTANE2 ---
Anesthesia Postop Eval I Sum Postop Eval Completion status Anesthesia document: Postop Eval 1 completed: Yes Anesthesia Postop Eval I Summary Anesthesia Postop Eval I Summary: Anesthesia Postop Eval I: Assessment Summary Airway patent Yes 06/09/24 00:15 POWER LINEMAN TECHNICIAN.[email or web address] Spontaneous unlabored Yes 06/09/24 00:15 POWER LINEMAN TECHNICIAN.HAILE respirations Mental status Awake,Calm 06/09/24 00:15 POWER LINEMAN TECHNICIAN.[email or web address] nausea No 06/09/24 00:15 POWER LINEMAN TECHNICIAN.CHRISTOPHLOU Vomiting No 06/09/24 00:15 POWER LINEMAN TECHNICIAN.CHRISTOPHLOChuck Anesthesia Postop Eval I: Fluid Summary Crystalloid volume administer 30 06/09/24 00:15 POWER LINEMAN TECHNICIAN.CHRISTOPHLOU (ml) Colloids volume administered ( ml) Blood Product volume administered (ml) Total IV fluid infused 30 06/09/24 00:15 POWER LINEMAN TECHNICIAN.HAILE Anesthesia Postop Eval I: Summary Notes Anesthesia Complication No 06/09/24 00:15 POWER LINEMAN TECHNICIAN.HAILE Anesthesia Complication Comment: Post-operative progress note Anesthesia: Postop Eval II Evaluation Mental status: Awake and Calm Pain Level: 1 nausea: No Vomiting: No
--- NOTE | 2024-06-09 15:23 | CHAPLAIN ---
Type of Pastoral Visit _x__ Initial Visit ___ Follow-up Visit ___ On-call Visit ___ General Patient Visit ___ Spiritual Assessment ___ Family Conference ___ Bereavement ___ Rapid Response ___ Code Blue ___ Other (describe below) Pastoral Care Referral From _x__ Patient ___ Family ___ Nurse ___ Physician ___ District Sales Leader ___ Outreach Specialist ___ Other (describe below) Sacrament/Intervention _x__ Active listening ___ Anointing ___ Quaker ___ Bereavement ___ Communion ___ Gina exploration ___ ___ Life review _x__ Prayer ___ Reconciliation ___ Sacrament of Sick ___ Supportive presence ___ Wedding ___ Other (describe below) Pastoral Comments patient is in the room and is given time to express how she is feeling and what she is needing; pt has two family members with her; pt states that she is better than when she came in and is thankful for the good care being received; pt does not state any needs or concerns at this time but welcomes a prayer spoken for her recovery
[2024-06-09] MEDS: 0.9% Normal Saline (1000mL) 1,000 ML 100 ML IV (16:36)
[2024-06-10] VITALS (14 sets, daily range): BP systolic 88–133; BP diastolic 53–72; PULSE 63–69; RESP 12–18; TEMP 36–36.7; O2SAT 92–97; BMI 23.0
[2024-06-10 04:52] LABS: Hematocrit 35.7 % (37-47); Hemoglobin 11.6 g/dL (12.0-15.0); Mean Corp Hgb Conc 32.5 g/dL (32-36); Mean Corpuscular Hgb 29.4 pg (27.0-32.0); Mean Corpuscular Volume 90.4 fL (81-99); Mean Platelet Vol. 11.1 fl (6.2-12.0); POSITIVE COUNT YES; POSITIVE MORPHOLOGY YES; Platelet Count 51 K/mm3 (150-450); RBC Distribution Width CV 13.7 % (11.6-14.6); RBC Distribution Width SD 45.8 fl (35.1-43.9); Red Blood Count 3.95 M/mm3 (4.2-5.4); White Blood Count 17.6 K/mm3 (4.4-11.0)
[2024-06-10 05:17] LABS: Anion Gap 8 (5-15); BUN 51 mg/dL (7-18); BUN/Creat Ratio 36.4 RATIO (10-20); Calcium,Total 7.9 mg/dL (8.5-10.1); Chloride 110 mmol/L (98-107); EST Glomerular Filtration Rate 38 mL/min (>60); Est Glom Filt Rate - Afr Amer 46 mL/min (>60); Estimated Creatinine Clearance 26.29 ml/min; Glucose 101 mg/dL (74-106); Potassium 3.7 mmol/L (3.5-5.1); Sodium Level 140 mmol/L (136-145)
[2024-06-10 05:19] LABS: Differential Indicated MANUAL DIFF
[2024-06-10 05:21] LABS: Lymphocyte 5 % (19-41); Metamyelocyte 3 % (0-1); Monocyte 5 % (0-10); Myelocyte 1 % (0-0); Neutrophil-Band 19 % (0-5); Neutrophil-Segmented 67 % (47-70); Total Cells Counted 100 (MANUAL DIFF)
[2024-06-10 05:23] LABS: Anisocytosis 2+; Microcytosis 1+; Platelet Estimate MKD DEC (ADEQ); Polychromasia RARE
[2024-06-10 05:24] LABS: Bite Cell 1+; Macrocytosis 1+; Ovalocyte 1+
[2024-06-10 05:25] LABS: Absolute Lymphocyte Count 0.88 X10^3/uL (0.83-4.51); Absolute Neutrophil Count 15.1 X10^3/uL (2.0-7.7)
[2024-06-10] MEDS: 0.9% Saline Lock 10 ML Syringe IV ×2 (05:30→10:08)
[2024-06-10] MEDS: Hydrocortisone Sod Succinate 100 MG/2 ML Vial IV (05:30)
[2024-06-10] MEDS: Midodrine HCl 5 MG Tablet 10 MG PO ×2 (08:22→12:06)
[2024-06-10] MEDS: Enoxaparin 30 MG/0.3 ML Syringe SC (08:23)
[2024-06-10] MEDS: Aspirin 325 MG Tablet PO (08:23)
[2024-06-10] MEDS: Cholecalciferol (Vit D3) 125 MCG CAPSULE (5,000 UNITS) PO (08:23)
[2024-06-10] MEDS: Atorvastatin Calcium 10 MG Tablet PO (08:24)
--- NOTE | 2024-06-10 09:32 | PN.HOSP_ITS ---
Subjective Subjective Doing well, feeling better overnight. No issues. Off of pressor support Objective Data Objective Data Vital Signs: Vital Signs Temp Pulse Resp BP Pulse Ox O2 Del Method O2 Flow Rate 97.9 F 66 14 129/61 H 97 Nasal Cannula 2 06/10/24 05:00 06/10/24 06:00 06/10/24 06:00 06/10/24 06:00 06/10/24 06:00 06/10/24 06:00 06/10/24 06:00 Oxygen Flow Rate (L/min) 2 Oxygen Delivery Method Nasal Cannula Weight: 134 lb 4.184 oz Body Mass Index (BMI) 23.0 Intake & Output: Intake and Output for Last 24 Hours 06/09/24 06/10/24 06/11/24 03:59 03:59 03:59 Intake Total 3525.49 / 3549.89 2202.28 / 2202.28 219.13 / 219.13 Output Total 595 / 595 1825 / 1825 450 / 450 Balance 2930.49 / 2954.89 377.28 / 377.28 -230.87 / -230.87 Lab / Micro Data 06/10/24 04:40 06/10/24 04:40 Labs: Laboratory Results - last 24 hr 06/09/24 10:35: Sodium 141, Potassium 3.7, Chloride 114 H, Carbon Dioxide 20.0 L , Anion Gap 8, BUN 39 H, Creatinine 1.73 H, Estim Creat Clear Calc 21.28, Est GFR (MDRD) Af Amer 36 L, Est GFR (MDRD) Non-Af 30 L, BUN/Creatinine Ratio 22.5 H , Glucose 87, Calcium 6.7 L 06/10/24 04:40: WBC 17.6 H, RBC 3.95 L, Hgb 11.6 L, Hct 35.7 L, MCV 90.4, MCH 29.4, MCHC 32.5, RDW Std Deviation 45.8 H, RDW Coeff of Jacob 13.7, Plt Count 51 L , MPV 11.1, Neut % (Auto) Not Reportable, Absolute Neuts (auto) 15.1 H, Absolute Lymphs (auto) 0.88, Total Counted 100, Neutrophils % (Manual) 67, Band Neutrophils % 19 H, Lymphocytes % (Manual) 5 L, Monocytes % (Manual) 5, M etamyelocytes % 3 H, Myelocytes % 1 H, Diff Path Review May foll, Platelet Estimate MKD DEC, Polychromasia RARE, Anisocytosis 2+, Microcytosis 1+, Macrocytosis 1+, Ovalocytes 1+, Bite Cells 1+, Sodium 140, Potassium 3.7, C hloride 110 H, Carbon Dioxide 22.0, Anion Gap 8, BUN 51 H, Creatinine 1.40 H, Estim Creat Clear Calc 26.29, Est GFR (MDRD) Af Amer 46 L, Est GFR (MDRD) Non-Af 38 L, BUN/Creatinine Ratio 36.4 H, Glucose 101, Calcium 7.9 L Micro: Microbiology 06/08/24 05:57 Interface Orders Urine Culture - Final Escherichia coli Physical Exam Narrative General: Alert, Oriented x3, Cooperative, No apparent distress HEENT: Atraumatic, PERRLA, EOMI, Normocephalic Oral: Moist Mucosa Neck: Supple, No JVD Lungs: Diminished, Normal air movement, No rhonchi, No wheeze, No rales Cardiovascular: Regular rate, Regular Rhythm, Normal S1, Normal S2, No murmurs Abdomen: Soft, Non Tender, Non-Distended, No Hepato-splenomegaly Extremities: No edema, Capillary Refill Less than 3 Seconds Skin: No rashes, No breakdown Musculoskeletal: No Tenderness to Palpation of Joints or Extremities Neurological: No focal neurological deficits, Motor Exam 5/5 strength throughout, Sensory exam intact to light touch and pain Psych/Mental Status: Normal Affect, Appropriate Assessment & Plan Assessment/Plan (1) Ureteral colic: (2) Hypotension: QUALIFIERS: Hypotension type: unspecified hypotension type Q ualified Code(s): I95.9 - Hypotension, unspecified PLAN: Plan 1. Left LLQ pain and ureteric colic from left UVJ stone with an E. coli UTI: Patient is being admitted send floor. Abdomen/pelvis CT reviewed shows 4 m stone in distal left ureter just proximal to UVJ causing mild obstructive changes. Patient is started on IV ceftriaxone. She does not have low intact symptoms but has mild obstructive changes on CT scan. I consulted urologist Dr. Winston and discussed with him. Plan for possible cystoscopy tomorrow 06/09/2024: Cystoscopy was done yesterday with a stent placed in the left ureter. She is feeling much better urine cultures are still pending. Will continue with cefepime. Pressor support is decreasing, tachycardia and tachypnea resolved fairly quickly on admission white count was normal though it has spiked today and I think this is likely secondary to the cystoscopy with a stent placement not clear that there is any septic component at this time UA was not significantly convincing for an infection though we will continue with cefepime 06/10/2024: Urine culture with E. coli UTI that is partially resistant, continue with cefepime. Can move out of the ICU and will attempt to discontinue midodrine 2. Hypotension most likely due to vomiting and dehydration: Although BP was normal to high in ED but on floor, in afternoon, BP was 85/46. Patient was feeling dizzy and lightheaded on standing up. 1 L of RL given and then continue normal saline 150 mL/h for 2 more liter. Monitor blood pressure. I do not think patient is septic as she does not look very sick or febrile and labs did not support that 06/09/2024: Will hold off pack as Levophed requirement is decreasing. Appreciate line controller assistance, will start midodrine 06/10/2024: Discontinued pressor support yesterday afternoon, gave a liter of fluid overnight and blood pressures now are stable, will see about discontinuing midodrine and holding her hypertensive medications 3. Cardiology disease: Sick sinus syndrome/tachybradycardia syndrome status post pacemaker, chronic HFpEF and PVC: Patient follows Dr. Mosley. She does not have acute chest pain shortness of breath or syncope or palpitation. Last echo as reported below Echo 03/11/2020 Interpretation Summary Normal LV size. Left ventricular systolic function is normal. The left ventricular ejection fraction is 65 %. Stage 1 diastolic dysfunction. ICD or pacer leads identified within the right ventricle. 4. Hypertension and dyslipidemia: As mentioned above. Hold antihypertensive medication. Statin continued 5. GERD: On PPI continued. DVT: Lovenox Charges/Coding Visit Charges Inpatient E&M: 65565 Subs Hosp L2
--- NOTE | 2024-06-10 09:42 | PCM.PN.INT ---
Assessment & Plan Assessment/Plan (1) Septic shock: PLAN: Plan RECOMMENDATIONS: 1. Continue antimicrobials as ordered. 2. Okay to discontinue stress dose steroids. 3. Encourage incentive spirometer use and mobilize patient as tolerated. 4. The patient is medically stable for transfer out of the intensive care unit. Will sign off from a critical care perspective. IMPRESSIONS: 1. Septic shock Secondary to UTI complicated by ureteral stone status post stent placement. Although the patient was initially requiring vasopressor support to maintain hemodynamic stability, she has been successfully weaned from Levophed and remains hemodynamically stable. Plan to continue antimicrobials based upon cultures and sensitivities. The patient stress dose steroids can be weaned today from my perspective. 2. Acute kidney injury Most likely prerenal in etiology in the setting of #1. Creatinine is improving with stabilization of hemodynamics. Continue to monitor urine output. No current indication for renal replacement therapy. 3. History of heart failure with preserved ejection fraction/sick sinus syndrome status post pacemaker Complicates care, management, recovery and prognosis. Continue supportive measures as noted above. Resume home medications at discharge. This note was generated with [employer] dictation software. It may contain incorrect words, spelling, and punctuation that were not noted in checking the note before signing. Subjective Subjective The patient was seen and examined at the bedside this morning. Events from the last 24 hours have been reviewed. The patient is currently afebrile, hemodynamically stable and maintaining appropriate oxygen saturations on 2 L/min via nasal cannula. The patient has been weaned from vasopressor support. White blood cell count has improved to 17,000. Creatinine has improved to 1.4. Objective Data Objective Data The patient's most recent lab work, culture data and imaging studies have all been personally reviewed. Urine culture was positive for E. coli. Vital Signs: Vital Signs Temp Pulse Resp BP Pulse Ox O2 Del Method O2 Flow Rate 97.9 F 66 14 129/61 H 97 Nasal Cannula 2 06/10/24 05:00 06/10/24 06:00 06/10/24 06:00 06/10/24 06:00 06/10/24 06:00 06/10/24 06:00 06/10/24 06:00 Oxygen Flow Rate (L/min) 2 Oxygen Delivery Method Nasal Cannula Weight: 134 lb 4.184 oz Body Mass Index (BMI) 23.0 Intake & Output: Intake and Output for Last 24 Hours 06/08/24 06/09/24 06/10/24 23:59 23:59 23:59 Intake Total 3347.13 / 3352.76 1380.64 / 1380.64 1219.13 / 1219.13 Output Total 560 / 595 1860 / 1860 450 / 450 Balance 2787.13 / 2757.76 -479.36 / -479.36 769.13 / 769.13 Lab / Micro Data Attestation: I reviewed the patient's lab results. 06/10/24 04:40 06/10/24 04:40 Labs: Laboratory Results - last 24 hr 06/09/24 10:35: Sodium 141, Potassium 3.7, Chloride 114 H, Carbon Dioxide 20.0 L, Anion Gap 8, BUN 39 H, Creatinine 1.73 H, Estim Creat Clear Calc 21.28, Est GFR (MDRD) Af Amer 36 L, Est GFR (MDRD) Non-Af 30 L, BUN/Creatinine Ratio 22.5 H, Glucose 87, Calcium 6.7 L 06/10/24 04:40: WBC 17.6 H, RBC 3.95 L, Hgb 11.6 L, Hct 35.7 L, MCV 90.4, MCH 29.4, MCHC 32.5, RDW Std Deviation 45.8 H, RDW Coeff of Jacob 13.7, Plt Count 51 L, MPV 11.1, Neut % (Auto) Not Reportable, Absolute Neuts (auto) 15.1 H, Absolute Lymphs (auto) 0.88, Total Counted 100, Neutrophils % (Manual) 67, Band Neutrophils % 19 H, Lymphocytes % (Manual) 5 L, Monocytes % (Manual) 5, Metamyelocytes % 3 H, Myelocytes % 1 H, Diff Path Review May , Platelet Estimate MKD DEC, Polychromasia RARE, Anisocytosis 2+, Microcytosis 1+, Macrocytosis 1+, Ovalocytes 1+, Bite Cells 1+, Sodium 140, Potassium 3.7, Chloride 110 H, Carbon Dioxide 22.0, Anion Gap 8, BUN 51 H, Creatinine 1.40 H, Estim Creat Clear Calc 26.29, Est GFR (MDRD) Af Amer 46 L, Est GFR (MDRD) Non-Af 38 L, BUN/Creatinine Ratio 36.4 H, Glucose 101, Calcium 7.9 L Micro: Microbiology 06/08/24 05:57 Interface Orders Urine Culture - Final Escherichia coli Physical Exam Const alert and no apparent distress General Appearance: cooperative HEENT normocephalic, head/scalp atraumatic and moist oral mucous membranes Eyes PERRL, EOMs intact bilaterally and conjunctivae normal Neck supple General: trachea midline Chest inspection of chest normal Resp normal respiratory effort Auscultation: Negative for rales, rhonchi or wheezes Cardio regular rate and regular rhythm GI normal to inspection, nondistended, normoactive bowel sounds Extremity no clubbing, cyanosis or edema Skin no rashes or lesions noted Neuro CN's II-XII intact bilaterally, moves all extremities and no focal motor deficits Psych cooperative and affect normal Charges/Coding Visit Charges Inpatient E&M: 77480 Subs Hosp L3
[2024-06-10] MEDS: Cefepime HCl 1 GM in 0.9% Normal Saline (50mL MB+) 50 ML IV (10:08)
[2024-06-10 13:37] LABS: Pathologist Review Reviewed
[2024-06-11 03:25] VITALS: BP 117/64; PULSE 65; RESP 16; TEMP 36; O2SAT 94
[2024-06-11 04:10] VITALS: BMI 23.0
[2024-06-11 06:28] LABS: Absolute Lymphocyte Count 1.19 X10^3/uL (0.83-4.51); Basophil# 0.14 X10^3/uL; Basophil% 0.8 % (0-1); Eosinophil# 0.07 X10^3/uL; Eosinophils% 0.4 % (0-5); Hemoglobin 11.2 g/dL (12.0-15.0); Lymphocyte # 1.19 X10^3/ul (0.83-4.51); Lymphocyte % 6.5 % (19-41); Mean Corp Hgb Conc 31.1 g/dL (32-36); Mean Corpuscular Hgb 28.4 pg (27.0-32.0); Mean Corpuscular Volume 91.1 fL (81-99); Mean Platelet Vol. 11.4 fl (6.2-12.0); Monocyte# 0.76 X10^3/uL; Monocyte% 4.2 % (0-10); NRBC Flagged by Analyzer 0 % (0-5); Neutrophil # 15.98 X10^3/uL (2.7-7.7); Neutrophil % 87.6 % (47-70); POSITIVE COUNT YES; POSITIVE MORPHOLOGY YES; Platelet Count 76 K/mm3 (150-450); RBC Distribution Width CV 13.5 % (11.6-14.6); RBC Distribution Width SD 45.9 fl (35.1-43.9); Red Blood Count 3.95 M/mm3 (4.2-5.4); White Blood Count 18.2 K/mm3 (4.4-11.0)
[2024-06-11 07:10] LABS: Anion Gap 4 (5-15); BUN 42 mg/dL (7-18); BUN/Creat Ratio 44.3 RATIO (10-20); Calcium,Total 7.8 mg/dL (8.5-10.1); Chloride 113 mmol/L (98-107); Creatinine, Serum 0.95 mg/dL (0.55-1.02); EST Glomerular Filtration Rate 60 mL/min (>60); Est Glom Filt Rate - Afr Amer 72 mL/min (>60); Estimated Creatinine Clearance 38.75 ml/min; Glucose 80 mg/dL (74-106); Potassium 3.6 mmol/L (3.5-5.1); Sodium Level 142 mmol/L (136-145)
[2024-06-11 07:21] LABS: Differential Indicated SCAN CRITERIA MET
[2024-06-11 08:20] VITALS: O2SAT 95
[2024-06-11 09:25] VITALS: BP 122/61; PULSE 66; RESP 18; TEMP 36.3; O2SAT 94
[2024-06-11] MEDS: Enoxaparin 30 MG/0.3 ML Syringe SC (09:27)
[2024-06-11] MEDS: Cholecalciferol (Vit D3) 125 MCG CAPSULE (5,000 UNITS) PO (09:27)
[2024-06-11] MEDS: Cefepime HCl 1 GM in 0.9% Normal Saline (50mL MB+) 50 ML IV (09:27)
[2024-06-11] MEDS: Aspirin 325 MG Tablet PO (09:27)
[2024-06-11] MEDS: 0.9% Saline Lock 10 ML Syringe IV (09:27)
[2024-06-11] MEDS: Atorvastatin Calcium 10 MG Tablet PO (09:27)
--- NOTE | 2024-06-11 13:09 | PCM.DC ---
Discharge Instructions Diet Discharge Diet: Low fat / Low cholesterol Dressing / Incision Call your doctor if you observe: Fever of 101 or Higher, Shortness of breath, Dizziness, Fainting spells, Swelling in the ankles, Chest pain and Increased palpitations (irregular heartbeat) Follow Up Care Please Follow Up With: Papa Winston MD Test Results: Test results from this visit will be discussed in further detail at your follow-up appointment, if applicable. Discharge Plan Admission Admit Date/Time: 06/08/24 10:57 Attending Provider: Tu Quezada Primary Care Provider: Aparna William Consulting Providers: Vivek Guerrero; Papa Winston Instructions Patient Instructions: ED Kidney Stone with Pain Discharge Orders/Prescriptions Prescriptions: New oxycodone-acetaminophen 5-325 mg tablet 1 tab PO .q4-6h PRN (Reason: Pain) 2 Days Qty: 12 0RF ondansetron 8 mg tablet,disintegrating 8 mg PO Q8H PRN (Reason: nausea and vomiting) Qty: 15 0RF cefdinir 300 mg capsule 300 mg PO BID Qty: 8 0RF Continued Adult 50 Plus Probiotic 4 billion cell capsule 4,000 mmu cells PO DAILY coenzyme Q10 [Co Q-10] 100 mg capsule 100 mg PO DAILY aspirin 325 mg tablet 325 mg PO DAILY sumatriptan succinate [Imitrex] 25 mg tablet 25 mg PO DAILY PRN (Reason: migraine headache) cholecalciferol (vitamin D3) 25 mcg (1,000 unit) tablet 5,000 unit PO DAILY Pepto-Bismol 262 mg tablet 2 tab PO Q30-60M PRN (Reason: upset stomach) losartan 50 mg tablet 50 mg PO BID omeprazole 20 mg capsule,delayed release(DR/EC) 20 mg PO .COMPLEX Rx Instructions: 20 mg PO every 3rd day; atorvastatin 10 mg tablet 10 mg PO DAILY Patient Comments: TAKE ONE TABLET BY MOUTH EVERY DAY loperamide [Imodium A-D] 2 mg capsule 2 mg PO ONCE PRN (Reason: loose stool) Quercetin with bromelain 2 cap PO DAILY carvedilol 12.5 mg tablet 12.5 mg PO BID omega-3 fatty acids-fish oil 684-1,200 mg capsule,delayed release(DR/EC) 1 cap PO DAILY vitamin E 268 mg (400 unit) capsule 268 mg PO DAILY Referrals / Follow Up: Aparna William DO [Primary Care Provider] - Papa Winston MD [Med Staff - Active Staff] - In 1 Week Disposition Disposition (needs filled in before D/C Order can be placed): Home, Self Care
--- NOTE | 2024-06-11 13:59 | PHA.DC_ITS ---
Pharmacy [facility] Pharmacy Service has performed discharge medication reconciliation and counseling for this patient. 1. CEFDINIR 300MG PO BID x 4 DAYS 2. ONDANSETRON 8MG PO Q8H PRN NAUSEA/VOMITING 3. OXYCODONE/ACETAMINOPHEN 5/325MG 1T PO Q4-6H PRN PAIN The patient's discharge medication list was reviewed for discrepancies and discrepancies were resolved. The patient was counseled on the following discharge medications and changes in medications for homegoing were reviewed. The Reason for Use, instructions for use, and potential side effects were reviewed for all new medications. The patient's questions regarding all of their medications were answered. The patient was able to verbally demonstrate an understanding of their discharge medications. Patient counseled by pharmacy buyerWilliam. Medications at Discharge Home Medications aspirin 325 mg tablet 325 mg PO DAILY heart health 05/15/18 coenzyme Q10 100 mg capsule (Co Q-10) 100 mg PO DAILY supplement 05/16/18 lactobacillus combination no.9 4 billion cell capsule (Adult 50 Plus Probiotic) 4,000 mmu cells PO DAILY supplement 05/16/18 bismuth subsalicylate 262 mg tablet (Pepto-Bismol) 2 tab PO Q30-60M PRN upset stomach 07/14/19 sumatriptan succinate 25 mg tablet (Imitrex) 25 mg PO DAILY PRN migraine heada lara 07/14/19 losartan 50 mg tablet 50 mg PO BID blood pressure 01/17/21 atorvastatin 10 mg tablet 10 mg PO DAILY cholesterol 10/24/21 loperamide 2 mg capsule (Imodium A-D) 2 mg PO ONCE PRN loose stool 10/24/21 omega-3 fatty acids-fish oil 684 mg-1,200 mg capsule,delayed release 1 cap PO DAILY supplement 10/24/21 omeprazole 20 mg capsule,delayed release 20 mg PO .COMPLEX reflux 10/24/21 vitamin E 268 mg (400 unit) capsule 268 mg PO DAILY vitamin 12/21/22 Quercetin with bromelain 2 cap PO DAILY 03/06/24 carvedilol 12.5 mg tablet 12.5 mg PO BID blood pressure 03/06/24 cholecalciferol (vitamin D3) 25 mcg (1,000 unit) tablet 5,000 unit PO DAILY vitamin 03/06/24 ondansetron 8 mg disintegrating tablet 8 mg PO Q8H PRN nausea and vomiting #15 tabs 06/08/24 oxycodone-acetaminophen 5 mg-325 mg tablet 1 tab PO .q4-6h PRN Pain 2 days #12 TABLETS 06/08/24 cefdinir 300 mg capsule 300 mg PO BID #8 caps 06/11/24
--- NOTE | 2024-06-11 14:58 | CASEMGMT ---
Patient has order for discharge. RN CM in to discuss needs at discharge, family at bedside. Patient up independent in room. Patient denies needs or help at discharge. Patient had no further questions or concerns.
[2024-06-11 15:14] VITALS: BP 118/55; PULSE 72; RESP 18; TEMP 36.7; O2SAT 94
--- NOTE | 2024-06-11 15:38 | DS.PCM_ITS ---
Providers Date of Admission: 06/08/24 Primary Care Physician: Dr. Aparna William, DO Consultations 06/08/24 13:53 Consult: Urology Routine Consulting Provider: Papa Winston Reason for Consult: LEFT UVJ STONE with mild obstructive changes EMERGENT Consult: No MD Notified: Yes Date Notified: 06/08/24 Time Notified: 13:53 Method of Notification: Verbal 06/09/24 05:15 Consult: Panel Monitor / Pulmonary Medicine Routine Consulting Provider: Intensivists/Pulmonary Med Reason for Consult: vasopressors EMERGENT Consult: No MD Notified: Yes Date Notified: 06/09/24 Time Notified: 05:15 Method of Notification: Answering Service Reason For Visit: LEFT UV JUNCTION OBSTRUCTION Diagnosis Discharge Diagnosis (1) Septic shock: Status: Acute Code(s): A41.9 - Sepsis, unspecified organism; R65.21 - Severe sepsis with septic shock Medications at Discharge Home Medications aspirin 325 mg tablet 325 mg PO DAILY [facility] 05/15/18 coenzyme Q10 100 mg capsule (Co Q-10) 100 mg PO DAILY supplement 05/16/18 lactobacillus combination no.9 4 billion cell capsule (Adult 50 Plus Probiotic) 4,000 mmu cells PO DAILY supplement 05/16/18 bismuth subsalicylate 262 mg tablet (Pepto-Bismol) 2 tab PO Q30-60M PRN upset stomach 07/14/19 sumatriptan succinate 25 mg tablet (Imitrex) 25 mg PO DAILY PRN migraine headache 07/14/19 losartan 50 mg tablet 50 mg PO BID blood pressure 01/17/21 atorvastatin 10 mg tablet 10 mg PO DAILY cholesterol 10/24/21 loperamide 2 mg capsule (Imodium A-D) 2 mg PO ONCE PRN loose stool 10/24/21 omega-3 fatty acids-fish oil 684 mg-1,200 mg capsule,delayed release 1 cap PO DAILY supplement 10/24/21 omeprazole 20 mg capsule,delayed release 20 mg PO .COMPLEX reflux 10/24/21 vitamin E 268 mg (400 unit) capsule 268 mg PO DAILY vitamin 12/21/22 Quercetin with bromelain 2 cap PO DAILY 03/06/24 carvedilol 12.5 mg tablet 12.5 mg PO BID blood pressure 03/06/24 cholecalciferol (vitamin D3) 25 mcg (1,000 unit) tablet 5,000 unit PO DAILY vitamin 03/06/24 ondansetron 8 mg disintegrating tablet 8 mg PO Q8H PRN nausea and vomiting #15 tabs 06/08/24 oxycodone-acetaminophen 5 mg-325 mg tablet 1 tab PO .q4-6h PRN Pain 2 days #12 TABLETS 06/08/24 cefdinir 300 mg capsule 300 mg PO BID #8 caps 06/11/24 Hospital Course Operations None Procedures None Summary of Care Provided Minutes Spent on Discharge: 37 Hospital Course: Per HPI: JACI BEE, is a 83 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 She also had nausea and vomiting 4 times daily bilious in nature. No fever or chills. She also feels dizzy and lightheaded on standing. Denies burning micturition, increase frequency urgency. In ED she was found to have left UVJ stone with mild obstructive changes. Patient has history of kidney stone about 8 years ago and passed spontaneously then. In ED her blood pressure was in normal range 157/76, 141/50 but she dropped her blood pressure on the floor around 1230 afternoon 85/46. 1 L Ringer lactate ordered. Hospital Course: 1. Left LLQ pain and ureteric colic from left UVJ stone with an E. coli UTI: Patient is being admitted send floor. Abdomen/pelvis CT reviewed shows 4 m stone in distal left ureter just proximal to UVJ causing mild obstructive changes. Patient is started on IV ceftriaxone. She does not have low intact symptoms but has mild obstructive changes on CT scan. I consulted urologist Dr. Winston and discussed with him. Plan for possible cystoscopy tomorrow 06/09/2024: Cystoscopy was done yesterday with a stent placed in the left ureter. She is feeling much better urine cultures are still pending. Will continue with cefepime. Pressor support is decreasing, tachycardia and tachypnea resolved fairly quickly on admission white count was normal though it has spiked today and I think this is likely secondary to the cystoscopy with a stent placement not clear that there is any septic component at this time UA was not significantly convincing for an infection though we will continue with cefepime 06/10/2024: Urine culture with E. coli UTI that is partially resistant, continue with cefepime. Can move out of the ICU and will attempt to discontinue midodrine 06/11/2024: Urine culture with E. coli that was sensitive to cefdinir. I discussed with her the plan for discharge today she expressed understanding of the risk benefits of going home and would like to go home today. She did receive 4 days of IV antibiotics so we will continue with another 4 days of oral antibiotics to complete an 8-day course. She does have a stent in place in her left ureter so she will need to follow-up with urology as an outpatient. Her Harley was removed today and she was able to urinate without difficulty. She need to follow-up with her PCP in 3 to 5 days for monitoring if necessary may need to extend antibiotic course given the severity of her initial illness. Of note she was requiring some oxygen overnight while sleeping indicative of potential sleep apnea so I discussed with her the need to follow-up with her PCP to also arrange for an outpatient sleep study that cannot be completed while inpatient. 2. Hypovolemic shock: Although BP was normal to high in ED but on floor, in afternoon, BP was 85/46. Patient was feeling dizzy and lightheaded on standing up. 1 L of RL given and then continue normal saline 150 mL/h for 2 more liter. Monitor blood pressure. I do not think patient is septic as she does not look very sick or febrile and labs did not support that 06/09/2024: Will hold off pack as Levophed requirement is decreasing. Appreciate payroll tax analyst assistance, will start midodrine 06/10/2024: Discontinued pressor support yesterday afternoon, gave a liter of fluid overnight and blood pressures now are stable, will see about discontinuing midodrine and holding her hypertensive medications 06/11/2024: She was off pressors very quickly and her hydrocortisone and midodrine were also discontinued, she likely had a spike in leukocytosis because of the hydrocortisone that she has been receiving while here. She is afebrile and feels much better and would like to go home today. 3. Cardiology disease: Sick sinus syndrome/tachybradycardia syndrome status post pacemaker, chronic HFpEF and PVC: Patient follows Dr. Mosley. She does not have acute chest pain shortness of breath or syncope or palpitation. Last echo as reported below Echo 03/11/2020 Interpretation Summary Normal LV size. Left ventricular systolic function is normal. The left ventricular ejection fraction is 65 %. Stage 1 diastolic dysfunction. ICD or pacer leads identified within the right ventricle. 4. Hypertension and dyslipidemia: As mentioned above. Hold antihypertensive medication. Statin continued 5. GERD: On PPI continued. Physical Exam Narrative General: Alert, Oriented x3, Cooperative, No apparent distress HEENT: Atraumatic, PERRLA, EOMI, Normocephalic Oral: Moist Mucosa Neck: Supple, No JVD Lungs: Diminished, Normal air movement, No rhonchi, No wheeze, No rales Cardiovascular: Regular rate, Regular Rhythm, Normal S1, Normal S2, No murmurs Abdomen: Soft, Non Tender, Non-Distended, No Hepato-splenomegaly Extremities: No edema, Capillary Refill Less than 3 Seconds Skin: No rashes, No breakdown Musculoskeletal: No Tenderness to Palpation of Joints or Extremities Neurological: No focal neurological deficits, Motor Exam 5/5 strength throughout, Sensory exam intact to light touch and pain Psych/Mental Status: Normal Affect, Appropriate Weight / BMI Weight Weight: 134 lb 4.184 oz Body Mass Index (BMI) 23.0 ABG / Lab / Microbiology Data 06/11/24 05:54 06/11/24 05:54 Laboratory: Laboratory Results - last 24 hr 06/11/24 05:54: WBC 18.2 H, RBC 3.95 L, Hgb 11.2 L, Hct 36.0 L, MCV 91.1, MCH 28.4, MCHC 31.1 L, RDW Std Deviation 45.9 H, RDW Coeff of Jacob 13.5, Plt Count 76 L, MPV 11.4, Immature Gran % (Auto) 0.500, Neut % (Auto) 87.6 H, Lymph % (Auto) 6.5 L, [place] % (Auto) 4.2, Eos % (Auto) 0.4, Baso % (Auto) 0.8, Absolute Neuts (auto) 16.0 H, Absolute Lymphs (auto) 1.19, Nucleated RBC % 0, Differential Comment , Sodium 142, Potassium 3.6, Chloride 113 H, Carbon Dioxide 25.0, Anion Gap 4 L, BUN 42 H, Creatinine 0.95, Estim Creat Clear Calc 38.75, Est GFR (MDRD) Af Amer 72, Est GFR (MDRD) Non-Af 60, BUN/Creatinine Ratio 44.3 H, Glucose 80, C alcium 7.8 L Microbiology: Microbiology 06/08/24 11:36 Blood Culture (Wb) - Anticubital Right Blood Culture - Preliminary No growth in 48 hours. 06/08/24 05:57 Interface Orders Urine Culture - Final Escherichia coli D/C Instructions Discharge Diet: Low fat / Low cholesterol Call your doctor if you observe: Fever of 101 or Higher, Shortness of breath, Dizziness, Fainting spells, Swelling in the ankles, Chest pain and Increased palpitations (irregular heartbeat) Please Follow Up With: Papa Winston MD When: Call [phone] for an appointment to set up surgery for stone Meaningful Use Info Meaningful Use Meaningful Use Diagnoses (Choose all that apply): None applicable Ischemic Stroke Statin Dosing Therapy Reference: STATIN DOSE THERAPY REFERENCE: * Patients > 75 years receive moderate or high dose statin therapy. * Patients 75 years or YOUNGER should receive HIGH intensity statin dose unless contraindicated. You will be required to document reason for non-treatment if statin daily dose does not meet guidelines. HIGH DOSE STATIN THERAPY DAILY Atorvastatin > than or = to 40 mg Rosuvastatin > than or = to 20 mg Amlodipine + Atorvastatin > than or = to 2.5/40 mg Ezetimibe + Simvastatin 10/80 mg Simvastatin 80mg Discharge Plan Admission Admit Date/Time: 06/08/24 10:57 Attending Provider: Tu Quezada Primary Care Provider: Aparna William Consulting Providers: Vivek Guerrero; Papa Winston Instructions Patient Instructions: ED Kidney Stone with Pain Discharge Orders/Prescriptions Prescriptions: New oxycodone-acetaminophen 5-325 mg tablet 1 tab PO .q4-6h PRN (Reason: Pain) 2 Days Qty: 12 0RF ondansetron 8 mg tablet,disintegrating 8 mg PO Q8H PRN (Reason: nausea and vomiting) Qty: 15 0RF cefdinir 300 mg capsule 300 mg PO BID Qty: 8 0RF Continued Adult 50 Plus Probiotic 4 billion cell capsule 4,000 mmu cells PO DAILY coenzyme Q10 [Co Q-10] 100 mg capsule 100 mg PO DAILY aspirin 325 mg tablet 325 mg PO DAILY sumatriptan succinate [Imitrex] 25 mg tablet 25 mg PO DAILY PRN (Reason: migraine headache) cholecalciferol (vitamin D3) 25 mcg (1,000 unit) tablet 5,000 unit PO DAILY Pepto-Bismol 262 mg tablet 2 tab PO Q30-60M PRN (Reason: upset stomach) losartan 50 mg tablet 50 mg PO BID omeprazole 20 mg capsule,delayed release(DR/EC) 20 mg PO .COMPLEX Rx Instructions: 20 mg PO every 3rd day; atorvastatin 10 mg tablet 10 mg PO DAILY Patient Comments: TAKE ONE TABLET BY MOUTH EVERY DAY loperamide [Imodium A-D] 2 mg capsule 2 mg PO ONCE PRN (Reason: loose stool) Quercetin with bromelain 2 cap PO DAILY carvedilol 12.5 mg tablet 12.5 mg PO BID omega-3 fatty acids-fish oil 684-1,200 mg capsule,delayed release(DR/EC) 1 cap PO DAILY vitamin E 268 mg (400 unit) capsule 268 mg PO DAILY Referrals / Follow Up: Aparna William DO [Primary Care Provider] - 06/16/24 11:15 am Papa Winston MD [Med Staff - Active Staff] - In 1 Week (Please call the office to schedule an appt. ) Disposition Disposition (needs filled in before D/C Order can be placed): Home, Self Care Charges/Coding Visit Charges Inpatient E&M: 56928 Disch Hosp >30min
== END 2024-06-11 15:27 | disposition home or self-care (01) | DRG 853 ==
LOC: ED 11:09 → MS3 11:37 → ICU 20:44 → PCU 06-10 14:22
PROVIDERS: Internal Medicine; Urology; Admitting Provider Internal Medicine; Emergency Provider Emergency Medicine; PCP Internal Medicine; Visit Provider Family Medicine
PROC: 0T778DZ Dilation of Left Ureter with Intraluminal Device, Via Natural or Artificial Opening Endoscopic (ICD-10-PCS; CPT 52332; principal; 2024-06-08 23:15)
DX: A41.9 Sepsis, unspecified organism (principal); R57.1 Hypovolemic shock; R65.21 Severe sepsis with septic shock; I50.32 Chronic diastolic (congestive) heart failure; N17.9 Acute kidney failure, unspecified; N39.0 Urinary tract infection, site not specified; N20.1 Calculus of ureter; I11.0 Hypertensive heart disease with heart failure; I49.5 Sick sinus syndrome; E78.5 Hyperlipidemia, unspecified; K21.9 Gastro-esophageal reflux disease without esophagitis; Z79.82 Long term (current) use of aspirin; R82.71 Bacteriuria; I49.3 Ventricular premature depolarization; N13.9 Obstructive and reflux uropathy, unspecified; Z95.0 Presence of cardiac pacemaker; B96.20 Unspecified Escherichia coli [E. coli] as the cause of diseases classified elsewhere; Z87.442 Personal history of urinary calculi
CPT/HCPCS: 36415; 74176; 76000; 80048; 81001; 82330; 82962; 85025; 87040; 87077; 87086; 87088; 87186; 93005; 97161; 97165; 99284; P9047; A4216; C1751; C1769; C2617; J0696; J2405

== ENCOUNTER → 2024-06-16 | Outpatient (CLI) | payer MEDICARE, SELFPAY ==
[2024-06-16 13:56] LABS: Absolute Lymphocyte Count 1.24 X10^3/uL (0.83-4.51); Absolute Neutrophil Count 5.2 X10^3/uL (2.0-7.7); Basophil# 0.02 X10^3/uL; Basophil% 0.3 % (0-1); Eosinophil# 0.17 X10^3/uL; Eosinophils% 2.3 % (0-5); Hematocrit 41.8 % (37-47); Hemoglobin 12.8 g/dL (12.0-15.0); Lymphocyte # 1.24 X10^3/ul (0.83-4.51); Lymphocyte % 17.1 % (19-41); Mean Corp Hgb Conc 30.6 g/dL (32-36); Mean Corpuscular Hgb 28.9 pg (27.0-32.0); Mean Corpuscular Volume 94.4 fL (81-99); Mean Platelet Vol. 10.2 fl (6.2-12.0); Monocyte# 0.42 X10^3/uL; Monocyte% 5.8 % (0-10); NRBC Flagged by Analyzer 0 % (0-5); Neutrophil # 5.24 X10^3/uL (2.7-7.7); Neutrophil % 72.2 % (47-70); Platelet Count 273 K/mm3 (150-450); RBC Distribution Width CV 13.7 % (11.6-14.6); RBC Distribution Width SD 47.3 fl (35.1-43.9); Red Blood Count 4.43 M/mm3 (4.2-5.4); White Blood Count 7.3 K/mm3 (4.4-11.0)
[2024-06-16 14:07] LABS: AST(SGOT) 41 U/L (15-37); Alanine Aminotransfer ALT/SGPT 47 U/L (13-56); Albumin, Serum 3.4 g/dL (3.2-5.0); Alkaline Phosphatase 109 U/L (45-117); Anion Gap 3 (5-15); BUN 18 mg/dL (7-18); BUN/Creat Ratio 24.4 RATIO (10-20); Calcium,Total 9.1 mg/dL (8.5-10.1); Chloride 108 mmol/L (98-107); Creatinine, Serum 0.74 mg/dL (0.55-1.02); EST Glomerular Filtration Rate 80 mL/min (>60); Est Glom Filt Rate - Afr Amer 96 mL/min (>60); Globulin 3.3 g/dL (2.2-4.2); Glucose 92 mg/dL (74-106); Potassium 4.2 mmol/L (3.5-5.1); Protein, Total 6.7 g/dL (6.4-8.2); Sodium Level 143 mmol/L (136-145)
[2024-06-16 14:11] LABS: BNP,B-Type NATRIURETIC PEPTIDE 341.8 pg/mL (0-100)
== END | disposition home or self-care (01) ==
LOC: LABSPEC 13:35
PROVIDERS: PCP Internal Medicine; Referring Provider Internal Medicine; Visit Provider Internal Medicine
DX: A41.9 Sepsis, unspecified organism (principal); N20.0 Calculus of kidney; R60.9 Edema, unspecified
CPT/HCPCS: 80053; 83880; 85025

== ENCOUNTER → 2024-07-07 | Outpatient (CLI) | payer MEDICARE, SELFPAY ==
--- NOTE | 2024-07-07 12:45 | CDU_ITS ---
Reason For Study: Bilateral Carotid Stenosis Rt. Velocities/BP Lt. Velocities/BP Prox CCA 58.2/7.2 cm/sec. Prox CCA 75.4/17.1 cm/sec. Mid CCA 76.1/12.8 cm/sec. Mid CCA 79.8/16.0 cm/sec. Dist CCA 79.9/14.7 cm/sec. Dist CCA 84.2/19.3 cm/sec. Prox ICA 56.0/15.5 cm/sec. Prox ICA 56.7/21.5 cm/sec. Mid ICA 83.1/19.3 cm/sec. Mid ICA 80.6/26.5 cm/sec. Dist ICA 83.7/23.2 cm/sec. Dist ICA 103.3/27.7 cm/sec. Rt. ICA/CCA = 1.1. Lt. ICA/CCA = 1.3. Prox ECA 830./0.0 cm/sec. Prox ECA 81.8/1.5 cm/sec. Rt. Vert. 37.4/5.3 cm/sec. Lt. Vert. 40.0/7.8 cm/sec. Right Extracranial There is homogeneous, smooth atherosclerotic plaque noted in the right common carotid artery. There is heterogeneous, irregular atherosclerotic plaque noted in the right internal carotid artery. There is intimal thickening but no significant atherosclerotic plaque noted in the right external carotid artery. Antegrade flow is noted in the right vertebral artery. Left Extracranial There is homogeneous, smooth atherosclerotic plaque noted in the left common carotid artery. There is heterogeneous, irregular atherosclerotic plaque noted in the left internal carotid artery. There is intimal thickening but no significant atherosclerotic plaque noted in the left external carotid artery. Antegrade flow is noted in the left vertebral artery. VL/Carotid Duplex Ultrasound Interpretation Summary Mild (<50%) stenosis right extracranial internal carotid. Mild (<50%) stenosis left extracranial internal carotid. Patent and antegrade vertebrals bilaterally. Ordering Physician: Aparna William Referring Physician: Aparna William Performed By: Sukumar Velazquez RVT
== END | disposition home or self-care (01) ==
LOC: CVS 12:45
PROVIDERS: PCP Internal Medicine; Referring Provider Internal Medicine; Visit Provider Internal Medicine
DX: I65.23 Occlusion and stenosis of bilateral carotid arteries (principal)
CPT/HCPCS: 93880

== ENCOUNTER → 2025-04-17 | Outpatient (CLI) | payer MEDICARE, SELFPAY ==
--- NOTE | 2025-04-17 08:58 | US_ITS ---
PROCEDURE: ABD LIMITED W/ ELASTOGRAPHY REASON FOR EXAM: ABD LIMITED W/ ELASTOG; DUE IN COMPARISON: Prior study dated April 14, 2024. TECHNIQUE: Procedure Code: [id number] Modality: US Procedure: ABD LIMITED W/ ELASTOGRAPHY Right upper quadrant abdominal ultrasound. Tad ElastQ Imaging shear wave elastography for non-invasive assessment of liver tissue stiffness. Tad EPIQ Elite. FINDINGS: LIVER: Size: Unremarkable Length: 13.3 cm Echotexture: Diffusely echogenic suggesting fatty infiltration Contour: Normal Lesions: None identified Elastography: EQI Med: 6.0 kPa EQI Med Kin: 4.6 m/s IQR/Med: %* GALLBLADDER: Normal COMMON BILE DUCT: Normal measuring 5.6 mm . PANCREAS: Normal Visualized portions of the right kidney are unremarkable. No right upper quadrant ascites. US/ABD Limited w/ Elastography IMPRESSION: Mild hepatic fibrosis. Fatty infiltration of the liver. Reference Values: SRU <1.37 m/s (5.7kPa): No to mild fibrosis 1.37 m/s - 2.2 m/s: Moderate to severe fibrosis >2.2 m/s (15kPa): Significant fibrosis / cirrhosis METAVIR Score F2 or higher: 1.34 m/s (5.7kPa) F3 or higher: 1.55 m/s (7.3kPa) F4: 1.80 m/s (10kPa) * If the IQR/Med is >30%, the variance in the measurements is a large and the a ccuracy of the measurement may be in question. Reading Location: [place] [id number]
--- NOTE | 2025-04-17 10:00 | BI_ITS ---
EXAM: Digital screening mammogram with CAD and brian DATE: 04/17/2025 CLINICAL HISTORY: F, Age 84 y/o , SCRN MAMM (CAD)W/BRIAN BILAT; DUE IN TECHNIQUE: Procedure Code: [id number] Modality: MG Procedure: SCRN MAMM (CAD)W/BRIAN BILAT COMPARISON: Prior exam(s) dated 04/14/2024 04/12/2023. FINDINGS: TISSUE DENSITY: There are scattered areas of fibroglandular density. Bilateral Breast Mammographic Findings: No significant masses, calcifications or other abnormalities are identified. Benign-appearing round microcalcifications are seen in both breasts. BI/SCRN MAMM (CAD)W/BRIAN BILAT IMPRESSION: Benign screening mammogram. OVERALL FINAL ASSESSMENT BI-RADS 2: BENIGN RECOMMENDATION: Routine annual follow-up in 1 Year A letter with findings and recommendations will be mailed to the patient. Reading Location: [id number]
== END | disposition home or self-care (01) ==
PROVIDERS: PCP Internal Medicine; Referring Provider Internal Medicine; Visit Provider Internal Medicine
DX: Z12.31 Encounter for screening mammogram for malignant neoplasm of breast (principal); K76.0 Fatty (change of) liver, not elsewhere classified
CPT/HCPCS: 76705; 76981; 77063; 77067

== ENCOUNTER → 2025-05-28 | Outpatient (CLI) | payer MEDICARE, SELFPAY ==
[2025-05-28 14:27] LABS: Mucous, Urine 0 SEEN /hpf (<or=2+); Red Blood Cells-Urine 0 SEEN /hpf (0-5)
[2025-05-28 14:39] LABS: Color, Urine Yellow (Yellow); Glucose, Dipstick Normal (Normal); Ketone-Dipstick Negative (Negative); Leukocyte Esterase-Dipstick Negative /ul (Negative); Nitrite-Dipstick Negative (Negative); Occult Blood-Urine Negative /ul (Negative); Protein-Dipstick Negative (Negative); Specific Gravity, Urine 1.010 (1.002-1.030); Urine Bilirubin Dipstick Negative (Negative)
[2025-05-28 14:48] LABS: Hematocrit 47.0 % (37-47); Hemoglobin 14.5 g/dL (12.0-15.0); Immature Granulocytes Count 0.010 X10^3/uL (0.0-0.0); Mean Corp Hgb Conc 30.9 g/dL (32-36); Mean Corpuscular Volume 95.9 fL (81-99); Mean Platelet Vol. 10.5 fl (6.2-12.0); NRBC Flagged by Analyzer 0 % (0-5); Platelet Count 195 K/mm3 (150-450); RBC Distribution Width CV 12.1 % (11.6-14.6); RBC Distribution Width SD 42.6 fl (35.1-43.9); Red Blood Count 4.90 M/mm3 (4.2-5.4); White Blood Count 4.4 K/mm3 (4.4-11.0)
[2025-05-28 14:51] LABS: Squamous Epithelial Cells - UA 0-5 SEEN /hpf (5-10)
[2025-05-28 15:06] LABS: AST(SGOT) 26 U/L (<=31); Alanine Aminotransfer ALT/SGPT 20 U/L (<=34); Albumin, Serum 4.5 g/dL (3.4-4.8); Alkaline Phosphatase 107 U/L (35-104); Anion Gap 9 (5-15); BUN 23 mg/dL (4-19); BUN/Creat Ratio 27.9 RATIO (10-20); Calcium,Total 9.4 mg/dL (7.6-11.0); Carbon Dioxide 29.7 mmol/L (21.0-32.0); Chloride 103 mmol/L (98-108); Globulin 2.4 g/dL (2.2-4.2); Glucose 92 mg/dL (70-99); Potassium 4.8 mmol/L (3.3-5.1)
== END | disposition home or self-care (01) ==
LOC: LABSPEC 12:46
PROVIDERS: PCP Internal Medicine; Referring Provider Internal Medicine; Visit Provider Internal Medicine
DX: I10 Essential (primary) hypertension (principal); K76.0 Fatty (change of) liver, not elsewhere classified
CPT/HCPCS: 80053; 81001; 82105; 85025; 87086

== ENCOUNTER → 2025-06-30 | Outpatient (CLI) | payer MEDICARE, SELFPAY ==
--- NOTE | 2025-06-30 13:22 | BD_ITS ---
PROCEDURE: DEXA BONE DENSITY STUDY 06/30/2025 REASON FOR EXAM: F, age 84 y/o . Postmenopausal. TECHNIQUE: Procedure Code: BDDBD Modality: DX Procedure: DEXA BONE DENSITY STUDY COMPARISON: April 12, 2023. FINDINGS: BMD and T-SCORES Lumbar spine: 0.785 g/cm2, T-score -2.1 Levels: L1 through L4 Change from prior: Loss of 2.9%. Left femoral neck: 0.601 g/cm2, T-score -2.2 Femoral neck comparison data not recommended for monitoring change. Left total hip: 0.720 g/cm2, T-score -1.8 Change from prior: Improvement of 3%. Right femoral neck: 0.642 g/cm2, T-score -1.9 Femoral neck comparison data not recommended for monitoring change. Right total hip: 0.700 g/cm2, T-score -2.0 Change from prior: Loss of 4.2%. The World Health Organization has defined the following categories based on bone density: Normal bone density: T-score equal to or greater than -1.0 Osteopenia: T-score between -1.0 and -2.5 Osteoporosis: T-score equal to or less than -2.5 FRAX (or Comparable) Fracture Risk Assessment: 10 Year Probability of Fracture: Major Osteoporotic Fracture: 38% Hip Fracture: 28% (Note: FRAX is not to be reported in setting of normal range bone density, osteoporosis on DEXA, known history of osteoporosis, prior osteoporotic hip or vertebral fracture, or for any patient undergoing pharmacological treatment for bone loss.) The National Osteoporosis Foundation (NOF) recommends pharmacological treatment for patients with a FRAX 10-year risk of 3% or higher for a hip fracture, or 20% or higher for a major osteoporotic fracture, to prevent osteoporosis and reduce fracture risk. The patient does meet the pharmacological treatment recommendations for prevention of osteoporosis. BD/Dexa Bone Density Study IMPRESSION: OSTEOPENIA. Recommend follow-up as clinically warranted. Reading Location: [id number]
--- NOTE | 2025-06-30 13:35 | CDU_ITS ---
Reason For Study Reason For Study: CAROTID STENOSIS Rt. Velocities/BP Lt. Velocities/BP Prox CCA 85.3/11.7 cm/sec. Prox CCA 86.5/15.7 cm/sec. Mid CCA 78.7/9.5 cm/sec. Mid CCA 87.5/17.6 cm/sec. Dist CCA 57.8/10.6 cm/sec. Dist CCA 85.6/15.7 cm/sec. Prox ICA 53.8/16.0 cm/sec. Prox ICA 53.5/13.8 cm/sec. Mid ICA 83.4/18.6 cm/sec. Mid ICA 96.3/21.5 cm/sec. Dist ICA 82.1/15.8 cm/sec. Dist ICA 114.3/28.5 cm/sec. Rt. ICA/CCA = 83.4/78.7=1.1. Lt. ICA/CCA = 114.3/87.5=1.3. Prox ECA 71.3/0.0 cm/sec. Prox ECA 61.0/0.0 cm/sec. Rt. Vert. 33.1/5.1 cm/sec. Lt. Vert. 44.1/7.5 cm/sec. Right Extracranial There is homogeneous, smooth atherosclerotic plaque noted in the right common carotid artery. There is homogeneous, smooth atherosclerotic plaque noted in the right internal carotid artery. There is intimal thickening but no significant atherosclerotic plaque noted in the right external carotid artery. Antegrade flow is noted in the right vertebral artery. Left Extracranial There is homogeneous, smooth atherosclerotic plaque noted in the left common carotid artery. There is homogeneous, smooth atherosclerotic plaque noted in the left internal carotid artery. There is intimal thickening but no significant atherosclerotic plaque noted in the left external carotid artery. Antegrade flow is noted in the left vertebral artery. Procedure Carotid Duplex [id number]. This is a Carotid Duplex examination using B-mode, color flow and specral Doppler. Exam performed in department. VL/Carotid Duplex Ultrasound Interpretation Summary Mild (<50%) stenosis right extracranial internal carotid. Mild (<50%) stenosis left extracranial internal carotid. Patent and antegrade vertebrals bilaterally. Ordering Physician: Aparna William Referring Physician: Aparna William Performed By: Thalia Vargas, NIGEL, RVT
== END | disposition home or self-care (01) ==
PROVIDERS: PCP Internal Medicine; Referring Provider Internal Medicine; Visit Provider Internal Medicine
DX: Z78.0 Asymptomatic menopausal state (principal); I65.23 Occlusion and stenosis of bilateral carotid arteries
CPT/HCPCS: 77080; 93880

== ENCOUNTER → 2025-07-27 | Outpatient (CLI) | payer MEDICARE, SELFPAY ==
--- NOTE | 2025-07-27 16:50 | RAD_ITS ---
PROCEDURE: CHEST PA AND LATERAL 07/27/2025 REASON FOR EXAM: FLU-LIKE SYMPTOMS TECHNIQUE: Procedure Code: RADCXR Modality: DX Procedure: CHEST PA AND LATERAL COMPARISON: None. FINDINGS: Left chest wall dual lead ICD in appropriate positioning. Cardiac silhouette is normal in size. No significant vascular congestion. Aortic arch calcification. No focal consolidation, pneumothorax or pleural effusion appreciated. Mild degenerative changes of the visualized spine. RAD/Chest PA and Lateral IMPRESSION: No evidence of acute cardiopulmonary disease. Reading Location: [id number]
== END | disposition home or self-care (01) ==
LOC: MTRAD 16:44
PROVIDERS: PCP Internal Medicine; Referring Provider Internal Medicine; Visit Provider Internal Medicine
DX: R68.89 Other general symptoms and signs (principal)
CPT/HCPCS: 71046